=== PATIENT | female | born 1955 | race Caucasian/White ===

== ENCOUNTER → 2017-04-01 | Outpatient (CLI) | payer BC ==
[2017-04-01 12:42] LABS: Basophils # (A) 0.2 k/uL (0-0.2); Basophils % (A) 1 %; Eosinophils # (A) 0.1 k/uL (0-0.7); Eosinophils % (A) 1 %; HCT 43.4 % (34.0-46.0); HGB 13.7 gm/dL (11.4-16.0); Lymphocytes # (A) 4.6 k/uL (1.0-4.8); Lymphocytes % (A) 31 %; MCH 28.9 pg (25.0-35.0); MCHC 31.6 g/dL (31.0-37.0); MCV 91.6 fL (80.0-100.0); Mean Platelet Volume 6.7; Monocytes # (A) 1.1 k/uL (0-1.0); Monocytes % (A) 7 %; Neutrophils % (A) 59 %; Platelet Count 257 k/uL (150-450); RBC 4.73 m/uL (3.80-5.40); RDW 15.3 % (11.5-15.5); WBC 15.1 k/uL (3.8-10.6)
[2017-04-01 13:02] LABS: ALT 58 U/L (9-52); AST 39 U/L (14-36); Alkaline Phosphatase 75 U/L (38-126); Anion Gap 7 mmol/L; Blood Urea Nitrogen 7 mg/dL (7-17); Calcium 9.1 mg/dL (8.4-10.2); Carbon Dioxide 31 mmol/L (22-30); Chloride 98 mmol/L (98-107); Creatine Kinase 56 U/L (30-135); Glucose 87 mg/dL (74-99); Potassium 4.2 mmol/L (3.5-5.1); Sodium 136 mmol/L (137-145); Total Bilirubin 0.6 mg/dL (0.2-1.3); Total Protein 6.6 g/dL (6.3-8.2)
[2017-04-01 13:17] LABS: T4, Free (Free Thyroxine) 0.75 ng/dL (0.78-2.19)
== END | disposition home or self-care (01) ==
LOC: LABWHC1 11:52
PROVIDERS: ATTEND Internal Medicine Critical Care Medicine
DX: K21.9 Gastro-esophageal reflux disease without esophagitis (principal); R53.1 Weakness; R06.00 Dyspnea, unspecified
CPT/HCPCS: 36415; 80053; 82550; 84439; 84443; 85025

== ENCOUNTER 2017-07-26 06:12 | Day surgery (SDC) | payer BC ==
[2017-07-22 13:46] VITALS: BMI 29.2
[2017-07-26] MEDS ORDERED: MIDAZOLAM 2 MG/2 ML VIAL ONE (07:15)
[2017-07-26] MEDS ORDERED: fentaNYL (PF) 50 MCG/ML 2 ML AMP ONE (07:15)
[2017-07-26] MEDS ORDERED: IV FLUID CONTINUATION 1,000 ML IV ONE (07:20)
[2017-07-26] MEDS: BENZOCAINE SPRAY 1 CAN MUCOUS MEM ONE ×2 (07:32→07:43)
[2017-07-26] MEDS ORDERED: fentaNYL (PF) 50 MCG/ML 2 ML AMP IV ONE (07:43)
[2017-07-26] MEDS ORDERED: MIDAZOLAM 2 MG/2 ML VIAL IV ONE ×2 (07:43→07:45)
[2017-07-26] MEDS ORDERED: oxyCODONE-APAP 10-325MG 1 EACH TAB PO PRN (08:04)
[2017-07-26] MEDS ORDERED: SODIUM CHLORIDE 0.9% 1,000 ML IV SCH (08:15)
[2017-07-26 08:44] VITALS: BP 156/72; PULSE 88; RESP 22
--- NOTE | 2017-07-26 08:46 | ECHOT ---
TRANSESOPHAGEAL ECHOCARDIOGRAM INDICATION: Evaluation of mitral valve. PROCEDURE: After explaining the procedure to the patient, its risks and complication, blood pressure, heart rate, O2 saturation was monitored. The throat was sprayed with Cetacaine. She received 3 mg intravenous Versed, 50 mcg intravenous fentanyl. The probe introduced into the esophagus without difficulty. Images were obtained Following that, the probe was removed. There was no immediate complication. FINDINGS: Left atrial size is mildly dilated measuring 4.2 cm. Left atrial appendage is normal. Left ventricular size and systolic function normal. The aortic valve, mitral valve, tricuspid and pulmonic valve are normal. Descending thoracic aorta revealed mild atherosclerotic changes. There was no pericardial effusion. Contrast bubble study revealed no shunting across the interatrial septum. Pulse wave and color Doppler were obtained, revealed moderate to severe mitral with mild to moderate tricuspid regurgitation. There was no shunting by color Doppler study. CONCLUSION: 1. Mildly dilated left atrium with normal appearance of left atrial appendage. 2. Normal left ventricular size and systolic function. 3. Normal appearance of the mitral valve with moderate to severe mitral regurgitation, central. 4. Mild to moderate tricuspid regurgitation with no evidence of pulmonary hypertension. 5. Mild atherosclerotic changes of the descending thoracic aorta. 6. No shunting across the interatrial septum. MMODL / IJN: [id number] /
[2017-07-26] MEDS ORDERED: NON-FORMULARY DRUG (Pregabalin [Lyrica] 150 MG) PO SCH (09:00)
[2017-07-26] MEDS ORDERED: predniSONE 10 MG TAB PO SCH (09:00)
[2017-07-26] MEDS ORDERED: DILTIAZEM HCL 90 MG PO SCH (09:00)
[2017-07-26] MEDS ORDERED: NON-FORMULARY DRUG (Fluticasone/Vilanterol [Breo Ellipta 200-25 Mcg Inh] 1 INHALATION) INHALATION SCH (09:00)
[2017-07-26] MEDS ORDERED: TIOTROPIUM BROMIDE INHALATION SCH (09:00)
[2017-07-26] MEDS ORDERED: DULoxetine HCL 30 MG CAPSULE.DR PO SCH (09:00)
[2017-07-26] MEDS ORDERED: LEVOTHYROXINE 50 MCG TAB PO SCH (09:00)
[2017-07-26] MEDS ORDERED: CLONAZEPAM 2 MG PO SCH (09:00)
[2017-07-26] MEDS ORDERED: RIVAROXABAN 20 MG TAB PO SCH (09:00)
[2017-07-26] MEDS ORDERED: CIPROFLOXACIN HCL 500 MG TAB PO SCH (09:00)
[2017-07-26] MEDS ORDERED: ALBUTEROL NEBULIZED 2.5 MG/3 ML INHALATION SCH (09:00)
[2017-07-26] MEDS ORDERED: MORPHINE SULFATE ER 60 MG TABLET PO SCH (09:00)
== END 2017-07-26 08:59 | disposition home or self-care (01) ==
LOC: CATHCVL 06:12
PROVIDERS: ATTEND Internal Medicine Interventional Cardiology
DX: I08.1 Rheumatic disorders of both mitral and tricuspid valves (principal); I70.0 Atherosclerosis of aorta; I10 Essential (primary) hypertension; E78.2 Mixed hyperlipidemia; Z86.73 Personal history of transient ischemic attack (TIA), and cerebral infarction without residual deficits; F17.210 Nicotine dependence, cigarettes, uncomplicated; J44.9 Chronic obstructive pulmonary disease, unspecified; Z86.711 Personal history of pulmonary embolism; Z79.01 Long term (current) use of anticoagulants; Z82.49 Family history of ischemic heart disease and other diseases of the circulatory system; G89.29 Other chronic pain; M54.9 Dorsalgia, unspecified; M19.90 Unspecified osteoarthritis, unspecified site; Z79.890 Hormone replacement therapy; Z79.891 Long term (current) use of opiate analgesic; Z79.51 Long term (current) use of inhaled steroids; Z79.52 Long term (current) use of systemic steroids; Z79.899 Other long term (current) drug therapy
CPT/HCPCS: 93312; 93320; 93325; J2250; J3010

== ENCOUNTER 2018-06-01 16:35 | Inpatient (IN) | payer BC ==
[2018-06-01] MEDS ORDERED: IPRATROPIUM-ALBUTEROL 3 ML NEB INHALATION STA ×3 (16:55→20:51)
[2018-06-01] MEDS ORDERED: SODIUM CHLORIDE 0.9% 1,000 ML IV STA (16:55)
[2018-06-01] MEDS ORDERED: methylPREDNISolone SOD SUCCI 125 MG/2 ML VIAL IV STA (16:55)
--- NOTE | 2018-06-01 16:59 | ED ---
SOB HPI - General Chief Complaint: Shortness of Breath Stated Complaint: SOB Time Seen by Provider: 06/01/18 16:45 Source: patient, family, RN/MD, RN notes reviewed Mode of arrival: wheelchair Limitations: no limitations - History of Present Illness Initial Comments: This is a 63-year-old female history of COPD who was sent over by Dr. Morfin from the office complaint one month of shortness of breath cough with intermittent episodes of green phlegm episode of chills and fever. she states she's getting worse with exertional dyspnea especially over last several days. she did have an x-ray done in the office which showed no indication of pneumonia. she is here with the above complaints she was noted to have a pulse oximetry of about 81 that should improve only to 87 with treatment. she does have a known fev1 of only 35. she has any chest pain she does have some peripheral edema which she states is not bad for her. no other modifying facto rs at this time MD Complaint: shortness of breath, cough - Related Data Home Medications Medication Instructions Recorded Confirmed Morphine Sulfate ER [Ms Contin] 60 mg PO TID 06/06/14 06/01/18 Simvastatin [Zocor] 20 mg PO DAILY 06/06/14 06/01/18 DULoxetine HCL [Cymbalta] 60 mg PO DAILY 07/22/17 06/01/18 Fluticasone/Vilanterol [Breo 1 puff INHALATION RT-DAILY 07/22/17 06/01/18 Ellipta 200-25 Mcg INH] Levothyroxine Sodium [Synthroid] 50 mcg PO DAILY 07/22/17 06/01/18 Pregabalin [Lyrica] 150 mg PO BID 07/22/17 06/01/18 Rivaroxaban [Xarelto] 20 mg PO DAILY 07/22/17 06/01/18 oxyCODONE-APAP 10-325MG [Percocet 1 tab PO BID PRN 07/22/17 06/01/18 10-325 mg] predniSONE 10 mg PO DAILY 07/22/17 06/01/18 Albuterol Inhaler [Ventolin Hfa 2 puff INHALATION RT-Q6H PRN 06/01/18 06/01/18 Inhaler] Diltiazem HCl [Diltiazem 24Hr ER] 180 mg PO DAILY 06/01/18 06/01/18 Furosemide [Lasix] 40 mg PO DAILY 06/01/18 06/01/18 Ipratropium-Albuterol Nebulize 3 ml INHALATION RT-QID PRN 06/01/18 06/01/18 [Duoneb 0.5 mg-3 mg/3 ml Soln] Losartan [Cozaar] 25 mg PO DAILY 06/01/18 06/01/18 Tiotropium 18 Mcg/Puff [Spiriva] 1 cap INHALATION RT-DAILY 06/01/18 06/01/18 clonazePAM [KlonoPIN] 1 mg PO HS 06/01/18 06/01/18 clonazePAM [KlonoPIN] 2 mg PO QAM 06/01/18 06/01/18 Allergies Allergy/AdvReac Type Severity Reaction Status Date / Time amoxicillin trihydrate Allergy Rash/Hives Verified 06/01/18 17:21 [From Augmentin] cefaclor [From Ceclor] Allergy Rash/Hives Verified 06/01/18 17:21 Iodinated Contrast- Oral and Allergy Throat Verified 06/01/18 17:21 IV Dye Swelling [Iodinated Contrast Media - IV Dye] Penicillins Allergy Rash/Hives Verified 06/01/18 17:21 potassium clavulanate Allergy Rash/Hives Verified 06/01/18 17:21 [From Augmentin] Review of Systems ROS Statement: Those systems with pertinent positive or pertinent negative responses have been documented in the HPI. ROS Other: All systems not noted in ROS Statement are negative. Past Medical History Past Medical History: COPD, CVA/TIA, Hyperlipidemia, Hypertension, Memory Impairment, Pulmonary Embolus (PE), Thyroid Disorder Additional Past Medical History / Comment(s): CVA WITH LEFT SIDED EYE DROOP, NUMBNESS ALAN FINGERS, LEFT LEG SWELLING, DDD, SPINAL STENOSIS, leaky valve History of Any Multi-Drug Resistant Organisms: None Reported Past Surgical History: Back Surgery Additional Past Surgical History / Comment(s): d&c's, ALAN CATARACT SX Past Anesthesia/Blood Transfusion Reactions: No Reported Reaction Additional Past Anesthesia/Blood Transfusion Reaction / Comment(s): "anesthesia took more than usual, I didn't go under" Past Psychological History: Anxiety Smoking Status: Current every day smoker Past Alcohol Use History: None Reported Past Drug Use History: None Reported - Past Family History Sister(s) Family Medical History: Cancer Additional Family Medical History / Comment(s): breast General Exam - General Exam Comments Initial Comments: This is a well-developed well-nourished awake alert oriented 3 female who is in obvious respiratory distress with some audible wheezing Limitations: no limitations General appearance: alert, anxious, in distress Head exam: Present: atraumatic, normocephalic, normal inspection Eye exam: Present: normal appearance, PERRL, EOMI. Absent: scleral icterus, conjunctival injection, periorbital swelling ENT exam: Present: mucous membranes dry Neck exam: Present: normal inspection. Absent: tenderness, meningismus, lymphadenopathy Respiratory exam: Present: wheezes, accessory muscle use, decreased breath sounds. Absent: respiratory distress, rales, rhonchi, stridor, chest wall tenderness Cardiovascular Exam: Present: regular rate, normal rhythm, normal heart sounds. Absent: systolic murmur, diastolic murmur, rubs, gallop, clicks GI/Abdominal exam: Present: soft, normal bowel sounds. Absent: distended, tenderness, guarding, rebound, rigid Extremities exam: Present: normal inspection, full ROM, normal capillary refill, pedal edema. Absent: tenderness, joint swelling, calf tenderness Back exam: Present: normal inspection Neurological exam: Present: alert, oriented X3, CN II-XII intact Psychiatric exam: Present: normal affect, anxious Skin exam: Present: warm, dry, intact, normal color. Absent: rash Course Vital Signs 06/01/18 06/01/18 06/01/18 16:38 17:03 17:12 Temperature 97.8 F Pulse Rate 83 100 100 Respiratory 22 Rate Blood Pressure 116/68 O2 Sat by Pulse 95 Oximetry 06/01/18 06/01/18 06/01/18 18:33 18:50 18:57 Temperature Pulse Rate 101 H 93 92 Respiratory 18 Rate Blood Pressure 137/65 O2 Sat by Pulse 93 L Oximetry - Reevaluation(s) Reevaluation #1: 06/01/18 17:18 awake overnight monitor was ordered and the patient to the patient complain of dyspnea. This is rule out cardiac dysrhythmia. Monitor showed a rate of 104 with sinus tachycardia at time of my review the CT wave changes no PACs or PVCs noted Reevaluation #2: 06/01/18 18:30 Reevaluation patient after the initial therapy reveals minimal improvement. Her pulse ox has improved however to the mid 90s. Reevaluation #3: 06/01/18 18:31 I did discuss the findings with the patient and with Dr. Stern. Patient was seen by Dr. Stern in the emergency department. Patient be admitted with consultation by Dr. Simpson. Medical Decision Making - Medical Decision Making I did discuss [employer] the patient and her . Also with Dr. Bowden who did come down to see the patient. Patient will be admitted with consultation to Dr. Simpson - Lab Data Result diagrams: 06/01/18 17:05 06/01/18 17:05 Lab Results 06/01/18 06/01/18 06/01/18 Range/Units 17:05 17:05 17:05 WBC 16.7 H (3.8-10.6) k/uL RBC 4.86 (3.80-5.40) m/uL Hgb 14.1 (11.4-16.0) gm/dL Hct 43.9 (34.0-46.0) % MCV 90.2 (80.0-100.0) fL MCH 29.1 (25.0-35.0) pg MCHC 32.2 (31.0-37.0) g/dL RDW 16.4 H (11.5-15.5) % Plt Count 248 (150-450) k/uL Neutrophils % 90 % Lymphocytes % 3 % Monocytes % 4 % Eosinophils % 1 % Basophils % 0 % Neutrophils # 15.1 H (1.3-7.7) k/uL Lymphocytes # 0.5 L (1.0-4.8) k/uL Monocytes # 0.7 (0-1.0) k/uL Eosinophils # 0.2 (0-0.7) k/uL Basophils # 0.1 (0-0.2) k/uL Anisocytosis Slight PT (9.0-12.0) sec INR (<1.2) APTT (22.0-30.0) sec Sodium 133 L (137-145) mmol/L Potassium 3.9 (3.5-5.1) mmol/L Chloride 92 L (98-107) mmol/L Carbon Dioxide 35 H (22-30) mmol/L Anion Gap 6 mmol/L BUN 14 (7-17) mg/dL Creatinine 0.68 (0.52-1.04) mg/dL Est GFR (CKD-EPI)AfAm >90 (>60 ml/min/1.73 sqM) Est GFR (CKD-EPI)NonAf >90 (>60 ml/min/1.73 sqM) Glucose 195 H (74-99) mg/dL Calcium 9.1 (8.4-10.2) mg/dL Magnesium 2.2 (1.6-2.3) mg/dL Total Bilirubin 0.7 (0.2-1.3) mg/dL AST 27 (14-36) U/L ALT 40 (9-52) U/L Alkaline Phosphatase 90 (38-126) U/L Creatine Kinase 58 (30-135) U/L Troponin I (0.000-0.034) ng/mL NT-Pro-B Natriuret Pep 287 pg/mL Total Protein 6.3 (6.3-8.2) g/dL Albumin 3.9 (3.5-5.0) g/dL 06/01/18 06/01/18 Range/Units 17:05 17:05 WBC (3.8-10.6) k/uL RBC (3.80-5.40) m/uL Hgb (11.4-16.0) gm/dL Hct (34.0-46.0) % MCV (80.0-100.0) fL MCH (25.0-35.0) pg MCHC (31.0-37.0) g/dL RDW (11.5-15.5) % Plt Count (150-450) k/uL Neutrophils % % Lymphocytes % % Monocytes % % Eosinophils % % Basophils % % Neutrophils # (1.3-7.7) k/uL Lymphocytes # (1.0-4.8) k/uL Monocytes # (0-1.0) k/uL Eosinophils # (0-0.7) k/uL Basophils # (0-0.2) k/uL Anisocytosis PT 11.3 (9.0-12.0) sec INR 1.1 (<1.2) APTT 20.9 L (22.0-30.0) sec Sodium (137-145) mmol/L Potassium (3.5-5.1) mmol/L Chloride (98-107) mmol/L Carbon Dioxide (22-30) mmol/L Anion Gap mmol/L BUN (7-17) mg/dL Creatinine (0.52-1.04) mg/dL Est GFR (CKD-EPI)AfAm (>60 ml/min/1.73 sqM) Est GFR (CKD-EPI)NonAf (>60 ml/min/1.73 sqM) Glucose (74-99) mg/dL Calcium (8.4-10.2) mg/dL Magnesium (1.6-2.3) mg/dL Total Bilirubin (0.2-1.3) mg/dL AST (14-36) U/L ALT (9-52) U/L Alkaline Phosphatase (38-126) U/L Creatine Kinase (30-135) U/L Troponin I <0.012 (0.000-0.034) ng/mL NT-Pro-B Natriuret Pep pg/mL Total Protein (6.3-8.2) g/dL Albumin (3.5-5.0) g/dL - EKG Data -: EKG Interpreted by Ga EKG shows normal: sinus rhythm (Sinus tachycardia rate of 107 appear of 01 60 QRS duration 66 QT since QTC 342/[address] configuration artifact is present) - Radiology Data Radiology results: image reviewed (Acute findings are noted) Critical Care Time Critical Care Time: Yes Critical Care Time: 31 minutes of critical care time which includes initial presentation with histo ry physical labs x-rays reevaluation patient responsive therapy. Discussion with paramedics upon arrival regarding the treatment prior to arrival. Review of old charting that was available admission orders and documentation of the above Disposition Clinical Impression: Acute exacerbation of chronic obstructive airways disease, Adult respiratory distress syndrome Disposition: ADMITTED IP TO THIS HOSP Condition: Serious Referrals: Trevor Hamilton MD [Primary Care Provider] - 1-2 days
[2018-06-01 17:21] LABS: Anisocytosis Slight; Basophils # (A) 0.1 k/uL (0-0.2); Basophils % (A) 0 %; Eosinophils # (A) 0.2 k/uL (0-0.7); Eosinophils % (A) 1 %; HCT 43.9 % (34.0-46.0); HGB 14.1 gm/dL (11.4-16.0); Lymphocytes # (A) 0.5 k/uL (1.0-4.8); Lymphocytes % (A) 3 %; MCH 29.1 pg (25.0-35.0); MCHC 32.2 g/dL (31.0-37.0); MCV 90.2 fL (80.0-100.0); Mean Platelet Volume 6.3; Monocytes # (A) 0.7 k/uL (0-1.0); Monocytes % (A) 4 %; Neutrophils # (A) 15.1 k/uL (1.3-7.7); Neutrophils % (A) 90 %; Platelet Count 248 k/uL (150-450); RBC 4.86 m/uL (3.80-5.40); RDW 16.4 % (11.5-15.5); WBC 16.7 k/uL (3.8-10.6)
[2018-06-01 17:39] LABS: ALT 40 U/L (9-52); AST 27 U/L (14-36); Albumin 3.9 g/dL (3.5-5.0); Alkaline Phosphatase 90 U/L (38-126); Anion Gap 6 mmol/L; Blood Urea Nitrogen 14 mg/dL (7-17); Calcium 9.1 mg/dL (8.4-10.2); Carbon Dioxide 35 mmol/L (22-30); Chloride 92 mmol/L (98-107); Creatine Kinase 58 U/L (30-135); Glucose 195 mg/dL (74-99); Magnesium 2.2 mg/dL (1.6-2.3); Potassium 3.9 mmol/L (3.5-5.1); Sodium 133 mmol/L (137-145); Total Bilirubin 0.7 mg/dL (0.2-1.3); Total Protein 6.3 g/dL (6.3-8.2)
[2018-06-01 17:41] LABS: INR 1.1 (<1.2); Prothrombin Time 11.3 sec (9.0-12.0)
[2018-06-01 17:42] LABS: Partial Thromboplastin Time 20.9 sec (22.0-30.0)
--- NOTE | 2018-06-01 19:08 | P.HPIM ---
History of Present Illness H&P Date: 06/01/18 Chief Complaint: COPD exacerbation 63 year old F with PMH of COPD, hypertension, hyperlipidemia, PE, hypothyroidism, previous h/o CVA, leaky valve as per patient presents to the ED for shortness of breath and cough. Patient report that the symptoms have been ongoing for the past 2 weeks. Patient also reports a cough productive of green sputum during that time as well. Patient states her symptoms have been progressively getting worse despite DuoNeb treatments, prompting her to come to the ED. Patient states that her exercise tolerance is usually greater than one block but now finds it hard to move from room to room. She reports a frontal headache and nasal discharge, green in color. Patient states that her sputum smells bad. She reports intermittent lower extremity edema that resolves with lower shi elevation. She denies any nausea, vomiting, fever, chest pain, palpitations, changes in urination or bowel habits. No changes in appetite or weight. Patient reports smoking 25 cigarettes daily. Has a long history of smoking 1 pack per day for many years. She denies any alcohol or illicit drug use. Patient reports going to urgent care center 5 days ago, received by mouth Levaquin which did not help her symptoms. In the ED, CBC showed a leukocytosis of 16.7. CMP showed a sodium of 133, chloride of 92, bicarbonate of 35. Initial troponin was less than 0.012, EKG shows sinus tachycardia. Review of Systems All systems: negative Past Medical History Past Medical History: COPD, CVA/TIA, Hyperlipidemia, Hypertension, Memory Impairment, Pulmonary Embolus (PE), Thyroid Disorder Additional Past Medical History / Comment(s): CVA WITH LEFT SIDED EYE DROOP, NUMBNESS ALAN FINGERS, LEFT LEG SWELLING, DDD, SPINAL STENOSIS, leaky valve History of Any Multi-Drug Resistant Organisms: None Reported Past Surgical History: Back Surgery Additional Past Surgical History / Comment(s): d&c's, ALAN CATARACT SX Past Anesthesia/Blood Transfusion Reactions: No Reported Reaction Additional Past Anesthesia/Blood Transfusion Reaction / Comment(s): "anesthesia took more than usual, I didn't go under" Past Psychological History: Anxiety Smoking Status: Current every day smoker Past Alcohol Use History: None Reported Past Drug Use History: None Reported - Past Family History Sister(s) Family Medical History: Cancer Additional Family Medical History / Comment(s): breast Medications and Allergies Home Medications Medication Instructions Recorded Confirmed Type Morphine Sulfate ER [Ms Contin] 60 mg PO TID 06/06/14 06/01/18 History Simvastatin [Zocor] 20 mg PO DAILY 06/06/14 06/01/18 History DULoxetine HCL [Cymbalta] 60 mg PO DAILY 07/22/17 06/01/18 History Fluticasone/Vilanterol [Breo 1 puff INHALATION RT-DAILY 07/22/17 06/01/18 History Ellipta 200-25 Mcg INH] Levothyroxine Sodium [Synthroid] 50 mcg PO DAILY 07/22/17 06/01/18 History Pregabalin [Lyrica] 150 mg PO BID 07/22/17 06/01/18 History Rivaroxaban [Xarelto] 20 mg PO DAILY 07/22/17 06/01/18 History oxyCODONE-APAP 10-325MG [Percocet 1 tab PO BID PRN 07/22/17 06/01/18 History 10-325 mg] predniSONE 10 mg PO DAILY 07/22/17 06/01/18 History Albuterol Inhaler [Ventolin Hfa 2 puff INHALATION RT-Q6H PRN 06/01/18 06/01/18 History Inhaler] Diltiazem HCl [Diltiazem 24Hr ER] 180 mg PO DAILY 06/01/18 06/01/18 History Furosemide [Lasix] 40 mg PO DAILY 06/01/18 06/01/18 History Ipratropium-Albuterol Nebulize 3 ml INHALATION RT-QID PRN 06/01/18 06/01/18 History [Duoneb 0.5 mg-3 mg/3 ml Soln] Losartan [Cozaar] 25 mg PO DAILY 06/01/18 06/01/18 History Tiotropium 18 Mcg/Puff [Spiriva] 1 cap INHALATION RT-DAILY 06/01/18 06/01/18 History clonazePAM [KlonoPIN] 1 mg PO HS 06/01/18 06/01/18 History clonazePAM [KlonoPIN] 2 mg PO QAM 06/01/18 06/01/18 History Allergies Allergy/AdvReac Type Severity Reaction Status Date / Time amoxicillin trihydrate Allergy Rash/Hives Verified 06/01/18 17:21 [From Augmentin] cefaclor [From Ceclor] Allergy Rash/Hives Verified 06/01/18 17:21 Iodinated Contrast- Oral and Allergy Throat Verified 06/01/18 17:21 IV Dye Swelling [Iodinated Contrast Media - IV Dye] Penicillins Allergy Rash/Hives Verified 06/01/18 17:21 potassium clavulanate Allergy Rash/Hives Verified 06/01/18 17:21 [From Augmentin] Physical Exam Vitals: Vital Signs Temp Pulse Resp BP Pulse Ox 06/01/18 18:33 101 H 06/01/18 17:12 100 06/01/18 17:03 100 06/01/18 16:38 97.8 F 83 22 116/68 95 Intake and Output 06/01/18 06/01/18 06/01/18 06:59 14:59 22:59 Other: Weight 71.214 kg General: [non toxic], [dyspneic], [appears at stated age] Derm: [warm], [dry] Head: [atraumatic], [normocephalic], [symmetric] Eyes: [EOMI], [no lid lag], [anicteric sclera] Mouth: [no lip lesion], [mucus membranes moist] Cardiovascular: [S1S2 reg], [tachycardia], [positive posterior tibial pulse bilateral], Lungs: [Decreased breath sounds bilaterally with end expiratory wheezing], [no r honchi, no rales] , [no accessory muscle use] Abdominal: [soft], [ nontender to palpation], [no guarding], [no appreciable organomegaly] Ext: [no gross muscle atrophy], [no edema], [no contractures] Neuro: [no focal neuro deficits] Psych: [Alert], [oriented], [appropriate affect] Results CBC & Chem 7: 06/01/18 17:05 06/01/18 17:05 Labs: Abnormal Lab Results - Last 24 Hours (Table) 06/01/18 06/01/18 06/01/18 Range/Units 17:05 17:05 17:05 WBC 16.7 H (3.8-10.6) k/uL RDW 16.4 H (11.5-15.5) % Neutrophils # 15.1 H (1.3-7.7) k/uL Lymphocytes # 0.5 L (1.0-4.8) k/uL APTT 20.9 L (22.0-30.0) sec Sodium 133 L (137-145) mmol/L Chloride 92 L (98-107) mmol/L Carbon Dioxide 35 H (22-30) mmol/L Glucose 195 H (74-99) mg/dL Thrombosis Risk Factor Assmnt - Choose All That Apply Any of the Below Risk Factors Present?: Yes Each Factor Represents 1 point: Age 41-60 years Other Risk Factors: No Each Risk Factor Represents 3 Points: History of DVT/PE Thrombosis Risk Factor Assessment Total Risk Factor Score: 4 Thrombosis Risk Factor Assessment Level: Moderate Risk Assessment and Plan Assessment: Assessment and Plan 1. COPD exacerbation 2. Pulmonary embolus 3. Hypertension 4. Hypothyroidism 5. History of CVA 1. Likely secondary to acute bronchitis. Start DuoNeb 4 times a day scheduled and as needed for shortness of breath and wheezing. Start Solu-Medrol 60 mg IV every 6 hours. Start Symbicort inhaler. O2 per nasal cannula to maintain an O2 saturation greater than 92%. Will follow pulmonology recommendations. Chest x- ray done at Dr[facility], no pneumonia seen. 2. Continue Xarelto. O2 per nasal cannula to maintain an O2 saturation greater than 92%. Telemetry monitoring. Will follow pulmonology recommendations. 3. BP 137/65. Continue diltiazem. Continue Lasix. Continue losartan. Monitor vitals, adjust medications as necessary. 4. Continue Synthroid. 5. Stable. Continue Lipitor, Xarelto. Patient admitted for COPD exacerbation. Pulmonology consult. Pending clinical improvement.
[2018-06-01] MEDS: IPRATROPIUM-ALBUTEROL 3 ML NEB INHALATION SCH (21:03)
[2018-06-02] MEDS: clonazePAM 1 MG TAB PO SCH ×3 (00:06→21:17)
[2018-06-02] MEDS: methylPREDNISolone SOD SUCCI 125 MG/2 ML VIAL IV SCH ×5 (00:06→23:33)
[2018-06-02] MEDS: guaiFENesin 600 MG TABLET.ER PO SCH ×3 (00:06→21:18)
[2018-06-02] MEDS: MORPHINE SULFATE ER 60 MG TABLET PO SCH ×4 (00:07→23:33)
[2018-06-02] MEDS: PREGABALIN 75 MG CAP PO SCH ×3 (00:08→21:17)
[2018-06-02] MEDS: LEVOTHYROXINE 50 MCG TAB PO SCH (06:19)
[2018-06-02] MEDS: IPRATROPIUM-ALBUTEROL 3 ML NEB INHALATION SCH ×4 (07:33→19:42)
[2018-06-02] MEDS: SYMBICORT 160-4.5 MCG INHALER INHALATION SCH ×2 (07:33→19:42)
[2018-06-02 07:45] LABS: Anisocytosis Slight; Basophils % (A) 0 %; Eosinophils % (A) 0 %; HCT 40.1 % (34.0-46.0); HGB 12.6 gm/dL (11.4-16.0); Lymphocytes # (A) 0.4 k/uL (1.0-4.8); Lymphocytes % (A) 4 %; MCH 28.4 pg (25.0-35.0); MCHC 31.3 g/dL (31.0-37.0); MCV 90.9 fL (80.0-100.0); Monocytes # (A) 0.3 k/uL (0-1.0); Monocytes % (A) 3 %; Neutrophils # (A) 9.5 k/uL (1.3-7.7); Neutrophils % (A) 92 %; Platelet Count 214 k/uL (150-450); RBC 4.41 m/uL (3.80-5.40); RDW 16.2 % (11.5-15.5); WBC 10.3 k/uL (3.8-10.6)
[2018-06-02 07:55] LABS: Anion Gap 3 mmol/L; Blood Urea Nitrogen 13 mg/dL (7-17); Calcium 8.9 mg/dL (8.4-10.2); Carbon Dioxide 37 mmol/L (22-30); Chloride 98 mmol/L (98-107); Glucose 197 mg/dL (74-99); Sodium 138 mmol/L (137-145)
[2018-06-02] MEDS ORDERED: IPRATROPIUM 0.5 MG/2.5 ML NEBU INHALATION SCH (08:00)
[2018-06-02] MEDS: LOSARTAN 25 MG TAB PO SCH (09:07)
[2018-06-02] MEDS: DULoxetine HCL 60 MG CAPSULE.DR PO SCH (09:07)
[2018-06-02] MEDS: ATORVASTATIN 10 MG TAB PO SCH (09:07)
[2018-06-02] MEDS: FUROSEMIDE 40 MG TAB PO SCH (09:07)
[2018-06-02] MEDS: AMOXIC-POT CLAV 875-125MG 1 EACH TAB PO SCH ×2 (10:49→21:18)
[2018-06-02] MEDS: NICOTINE 14MG/24HR PATCH TRANSDERM SCH (10:50)
--- NOTE | 2018-06-02 11:09 | P.PN ---
Subjective Progress Note Date: 06/02/18 Principal diagnosis: COPD exacerbation Patient seen and examined. No acute events overnight. Patient reports no changes in her breathing. She continues to complain of cough productive of green sputum and sinus type frontal headache. She is saturating 90s on 2 L nasal cannula. Objective - Vital Signs Vital signs: Vital Signs Temp 98.8 F 06/02/18 07:00 Pulse 97 06/02/18 08:40 Resp 16 06/02/18 08:40 BP 149/79 06/02/18 07:00 Pulse Ox 98 06/02/18 07:00 Intake & Output 06/01/18 06/02/18 06/02/18 18:59 06:59 18:59 Intake Total 900 Balance 900 Weight 71.214 kg Intake: Intake, IV Titration 550 Amount Sodium Chloride 0.9% 1, 550 000 ml @ 100 mls/hr IV . Q10H STA Rx#:[id number] Oral 350 Other: Voiding Method Toilet Bedside Commode # Voids 2 - Exam General: [non toxic], [dyspneic], [appears at stated age] Derm: [warm], [dry] Head: [atraumatic], [normocephalic], [symmetric] Eyes: [EOMI], [no lid lag], [anicteric sclera] Mouth: [no lip lesion], [mucus membranes moist] Cardiovascular: [S1S2 reg], [tachycardia], [positive posterior tibial pulse bilateral], Lungs: [Decreased breath sounds bilaterally with end expiratory wheezing], [no rhonchi, no rales] , [no accessory muscle use] Abdominal: [soft], [ nontender to palpation], [no guarding], [no appreciable or ganomegaly] Ext: [no gross muscle atrophy], [no edema], [no contractures] Neuro: [no focal neuro deficits] Psych: [Alert], [oriented], [appropriate affect] - Labs CBC & Chem 7: 06/02/18 06:48 06/02/18 06:48 Labs: Abnormal Lab Results - Last 24 Hours (Table) 06/01/18 06/01/18 06/01/18 Range/Units 17:05 17:05 17:05 WBC 16.7 H (3.8-10.6) k/uL RDW 16.4 H (11.5-15.5) % Neutrophils # 15.1 H (1.3-7.7) k/uL Lymphocytes # 0.5 L (1.0-4.8) k/uL APTT 20.9 L (22.0-30.0) sec Sodium 133 L (137-145) mmol/L Chloride 92 L (98-107) mmol/L Carbon Dioxide 35 H (22-30) mmol/L Creatinine (0.52-1.04) mg/dL Glucose 195 H (74-99) mg/dL 06/02/18 06/02/18 Range/Units 06:48 06:48 WBC (3.8-10.6) k/uL RDW 16.2 H (11.5-15.5) % Neutrophils # 9.5 H (1.3-7.7) k/uL Lymphocytes # 0.4 L (1.0-4.8) k/uL APTT (22.0-30.0) sec Sodium (137-145) mmol/L Chloride (98-107) mmol/L Carbon Dioxide 37 H (22-30) mmol/L Creatinine 0.48 L (0.52-1.04) mg/dL Glucose 197 H (74-99) mg/dL Assessment and Plan Assessment: Assessment and Plan 1. COPD exacerbation 2. Sinusitis 3. Pulmonary embolus 4. Severe mitral regurgitation 5. Hypertension 6. Hypothyroidism 7. History of CVA 1. Likely secondary to acute bronchitis. Start DuoNeb 4 times a day scheduled and as needed for shortness of breath and wheezing. Start Solu-Medrol 60 mg IV every 6 hours. Start Symbicort inhaler. O2 per nasal cannula to maintain an O2 saturation greater than 92%. Will follow pulmonology recommendations. Chest x- ray done at Dr[facility], no pneumonia seen. 2. ALLERGY to penicillin in the past only included rash. Will try trial of Augmentin for sinusitis. Continue Mucinex. 3. Continue Xarelto. O2 per nasal cannula to maintain an O2 saturation greater than 92%. Telemetry monitoring. Will follow pulmonology recommendations. 4. Seen on previous LEVI. Might be contributing to her respiratory distress. Will follow cardiology consultation. Continue Lasix and [place] inhibitor. 5. BP 149/79. Continue diltiazem. Continue Lasix. Continue losartan. Monitor vitals, adjust medications as necessary. 6. Continue Synthroid. 7. Stable. Continue Lipitor, Xarelto. Patient admitted for COPD exacerbation. Pulmonology consult. Cardiology consulted for severe mitral regurgitation. Pending clinical improvement.
[2018-06-02] MEDS: RIVAROXABAN 20 MG TAB PO SCH (12:16)
[2018-06-02] MEDS: DILTIAZEM CD 180 MG CAP.ER.24H PO SCH (12:16)
[2018-06-02 16:53] LABS: Glucose,Whole Blood 154 mg/dL (75-99)
--- NOTE | 2018-06-02 18:09 | P.CNPUL ---
History of Present Illness Consult date: 06/02/18 Requesting physician: Tita Delacruz Reason for consult: dyspnea, COPD Chief complaint: Shortness of breath, cough, congestion History of present illness: This is a very pleasant 63-year-old female patient who follows with Dr. Hamilton as her primary care physician. She has a history of spinal stenosis of the lumbar region, mitral valve regurgitation, osteoarthritis, hyperlipidemia, pulmonary embolism anticoagulated with Xarelto. She also has a history of chronic tobacco dependence, severe chronic obstructive pulmonary disease, chronic hypoxemic respiratory failure, multiple nodules lung. She follows with Dr. Simpson in our office. He was seen by Dr. Lore Blandon in his absence yesterday for an acute exacerbation of her COPD. She was quite dyspneic and was referred to the emergency room for treatment. She is seen today in consultation. Her chest x- ray shows no evidence of acute pneumonia. She is seen today in consultation on the regular medical floor. She is currently awake and alert. She is quite dyspneic on minimal exertion. Dyspnea with conversation. He is maintaining O2 saturations in the low 90s on 2 L/m per nasal cannula. She is currently afebrile. Hemodynamically stable. White count 10.3. Hemoglobin 12.6. Creatinine 0.48. She's been initiated on DuoNeb inhalations, Symbicort, IV Solu-Medrol. Empiric antibiotics in the form of Augmentin. Unfortunately she does continue to smoke. Habitrol patch is in place. Review of Systems REVIEW OF SYSTEMS: CONSTITUTIONAL: Denies any recent significant weight loss or weight gain. EYES: Denies change in vision. EARS, NOSE, MOUTH, THROAT: Denies headaches, denies sore throat. CARDIOVASCULAR: Denies chest pain, palpitations or syncopal episodes. RESPIRATORY: Positive shortness of breath, cough, congestion no hemoptysis. GASTROINTESTINAL: Denies change in appetite, denies abdominal pain GENITOURINARY: Denies hematuria, denies infections. MUSKULOSKELETAL: Denies pain, denies swelling. INTEGUMENTARY: Denies rash, denies eczema. NEUROLOGICAL: Denies recent memory loss, no recent seizure activity. PSYCHIATRIC: Denies anxiety, denies depression. HEMATOLOGIC/LYMPHATIC: Denies anemia, denies enlarged lymph nodes. Past Medical History Past Medical History: COPD, CVA/TIA, Hyperlipidemia, Hypertension, Memory Impairment, Pulmonary Embolus (PE), Thyroid Disorder Additional Past Medical History / Comment(s): CVA WITH LEFT SIDED EYE DROOP, NUMBNESS ALAN FINGERS, LEFT LEG SWELLING, DDD, SPINAL STENOSIS, leaky valve History of Any Multi-Drug Resistant Organisms: None Reported Past Surgical History: Back Surgery Additional Past Surgical History / Comment(s): d&c's, ALAN CATARACT SX Past Anesthesia/Blood Transfusion Reactions: No Reported Reaction Additional Past Anesthesia/Blood Transfusion Reaction / Comment(s): "anesthesia took more than usual, I didn't go under" Past Psychological History: Anxiety Smoking Status: Current every day smoker Past Alcohol Use History: None Reported Additional Past Alcohol Use History / Comment(s): smokes 10-15 cigarettes a day, from age 17 Past Drug Use History: None Reported - Past Family History Sister(s) Family Medical History: Cancer Additional Family Medical History / Comment(s): breast Medications and Allergies Home Medications Medication Instructions Recorded Confirmed Type Morphine Sulfate ER [Ms Contin] 60 mg PO TID 06/06/14 06/01/18 History Simvastatin [Zocor] 20 mg PO DAILY 06/06/14 06/01/18 History DULoxetine HCL [Cymbalta] 60 mg PO DAILY 07/22/17 06/01/18 History Fluticasone/Vilanterol [Breo 1 puff INHALATION RT-DAILY 07/22/17 06/01/18 History Ellipta 200-25 Mcg INH] Levothyroxine Sodium [Synthroid] 50 mcg PO DAILY 07/22/17 06/01/18 History Pregabalin [Lyrica] 150 mg PO BID 07/22/17 06/01/18 History Rivaroxaban [Xarelto] 20 mg PO DAILY 07/22/17 06/01/18 History oxyCODONE-APAP 10-325MG [Percocet 1 tab PO BID PRN 07/22/17 06/01/18 History 10-325 mg] predniSONE 10 mg PO DAILY 07/22/17 06/01/18 History Albuterol Inhaler [Ventolin Hfa 2 puff INHALATION RT-Q6H PRN 06/01/18 06/01/18 History Inhaler] Diltiazem HCl [Diltiazem 24Hr ER] 180 mg PO DAILY 06/01/18 06/01/18 History Furosemide [Lasix] 40 mg PO DAILY 06/01/18 06/01/18 History Ipratropium-Albuterol Nebulize 3 ml INHALATION RT-QID PRN 06/01/18 06/01/18 History [Duoneb 0.5 mg-3 mg/3 ml Soln] Losartan [Cozaar] 25 mg PO DAILY 06/01/18 06/01/18 History Tiotropium 18 Mcg/Puff [Spiriva] 1 cap INHALATION RT-DAILY 06/01/18 06/01/18 History clonazePAM [KlonoPIN] 1 mg PO HS 06/01/18 06/01/18 History clonazePAM [KlonoPIN] 2 mg PO QAM 06/01/18 06/01/18 History Allergies Allergy/AdvReac Type Severity Reaction Status Date / Time amoxicillin trihydrate Allergy Rash/Hives Verified 06/01/18 17:21 [From Augmentin] cefaclor [From Ceclor] Allergy Rash/Hives Verified 06/01/18 17:21 Iodinated Contrast- Oral and Allergy Throat Verified 06/01/18 17:21 IV Dye Swelling [Iodinated Contrast Media - IV Dye] Penicillins Allergy Rash/Hives Verified 06/01/18 17:21 potassium clavulanate Allergy Rash/Hives Verified 06/01/18 17:21 [From Augmentin] Physical Exam Vitals: Vital Signs Temp Pulse Pulse Resp BP BP Pulse Ox 06/02/18 17:08 100 06/02/18 16:53 100 06/02/18 16:00 97 16 06/02/18 08:40 97 16 06/02/18 07:44 98 06/02/18 07:33 96 06/02/18 07:00 98.8 F 97 16 149/79 98 06/01/18 23:04 95 18 06/01/18 22:08 98.3 F 95 17 127/65 95 06/01/18 21:30 124 H 16 142/78 06/01/18 21:13 104 H 06/01/18 21:03 104 H 06/01/18 21:00 98 12 137/76 94 L 06/01/18 20:30 98 12 134/71 92 L 06/01/18 20:00 90 12 128/66 95 06/01/18 19:30 86 12 124/68 94 L 06/01/18 19:00 90 12 137/65 95 06/01/18 18:57 92 06/01/18 18:50 93 18 137/65 93 L 06/01/18 18:33 101 H Intake and Output 06/02/18 06/02/18 06/02/18 06:59 14:59 22:59 Intake Total 900 600 Balance 900 600 Intake: Intake, IV Titration 550 600 Amount Sodium Chloride 0.9% 1, 550 600 000 ml @ 100 mls/hr IV . Q10H STA Rx#:[id number] Oral 350 Other: Voiding Method Toilet Bedside Commode # Voids 2 3 GENERAL EXAM: Alert, active, comfortable in no respiratory distress. Oxygen at 2 L/m per nasal cannula. HEAD: Normocephalic. EYES: Normal reaction of pupils, equal size. NOSE: Clear with pink turbinates. THROAT: No erythema or exudates. NECK: No masses, no JVD. CHEST: No chest wall deformity. LUNGS: Equal air entry with bilateral end expiratory wheeze, few scattered rhonchi. CVS: S1 and S2 normal with no audible murmur, regular rhythm. ABDOMEN: No hepatosplenomegaly, normal bowel sounds, no guarding or rigidity. SPINE: No scoliosis or deformity SKIN: No rashes CENTRAL NERVOUS SYSTEM: No focal deficits, tone is normal in all 4 extremities. EXTREMITIES: There is trace peripheral edema. No clubbing, no cyanosis. Peripheral pulses are intact. Results - Laboratory Findings CBC and BMP: 06/02/18 06:48 06/02/18 06:48 PT/INR, D-dimer PT 11.3 sec (9.0-12.0) 06/01/18 17:05 INR 1.1 (<1.2) 06/01/18 17:05 Abnormal lab findings: Abnormal Labs 06/01/18 06/01/18 06/01/18 17:05 17:05 17:05 WBC 16.7 H RDW 16.4 H Neutrophils # 15.1 H Lymphocytes # 0.5 L APTT 20.9 L Sodium 133 L Chloride 92 L Carbon Dioxide 35 H Creatinine Glucose 195 H POC Glucose (mg/dL) 06/02/18 06/02/18 06/02/18 06:48 06:48 16:49 WBC RDW 16.2 H Neutrophils # 9.5 H Lymphocytes # 0.4 L APTT Sodium Chloride Carbon Dioxide 37 H Creatinine 0.48 L Glucose 197 H POC Glucose (mg/dL) 154 H - Diagnostic Findings Chest x-ray: image reviewed (No acute pulmonary process) Assessment and Plan Assessment: Impression: #1 Acute exacerbation of chronic obstructive pulmonary disease. #2 Acute on chronic hypoxic respiratory failure secondary to above. #3 Chronic and ongoing tobacco dependence. #4 Hypertension. #5 Hyperlipidemia. #6 History of pulmonary embolism, anticoagulated with Xarelto. #7 Hypothyroidism. #8 CVA with left-sided eye droop. #9 anxiety. Plan: The patient was seen and evaluated by Dr. Sipmson. Chest x-ray and labs were reviewed. We'll continue with her current treatment for her COPD exacerbation including IV Solu-Medrol, DuoNeb inhalations, Symbicort inhalations. He is again educated regarding the importance of complete smoking cessation. Habitrol patches in place. Anticoagulant with Xarelto. We will continue to follow and make further recommendations based on her clinical status. I, the cosigning physician, performed a history & physical examination of the patient. Lungs sounds with bilateral end expiratory wheeze, few scattered rhonchi, diminished. Maintaining good O2 saturations in the 90s on 2 L/m per nasal cannula. I discussed the assessment and plan of care with my nurse practitioner, Cynthia Ken. I attest to the above note as dictated by her. Time with Patient: Greater than 30
--- NOTE | 2018-06-02 18:14 | ECHOF ---
Referral Reason:SOB MEASUREMENTS -------- HEIGHT: 157.5 cm WEIGHT: 71.2 kg BP: 127/65 IVSd: 1.4 cm (0.6 - 1.1) LVIDd: 4.0 cm (3.9 - 5.3) LVPWd: 1.5 cm (0.6 - 1.1) IVSs: 1.8 cm LVIDs: 2.7 cm LVPWs: 1.8 cm LAESV Index (A-L): 25.17 ml/m Ao Diam: 2.8 cm (2.0 - 3.7) AV Cusp: 2.0 cm (1.5 - 2.6) LA Diam: 3.1 cm (2.7 - 3.8) MV EXCURSION: 15.271 mm (> 18.000) MV EF SLOPE: 135 mm/s (70 - 150) EPSS: 0.7 cm MV E Parth: 1.14 m/s MV DecT: 220 ms MV A Parth: 1.33 m/s MV E/A Ratio: 0.86 RAP: 20.00 mmHg RVSP: 57.07 mmHg FINDINGS -------- Sinus rhythm. This was a technically good study. The left ventricular size is normal. There is moderate concentric left ventricular hypertrophy. O verall left ventricular systolic function is normal with, an EF between 55 - 60 %. The right ventricle is normal in size. Normal LA size by volume 22+/-6 ml/m2. The right atrial size is normal. The aortic valve is trileaflet and appears structurally normal. The mitral valve leaflets are mildly thickened. Severe mitral regurgitation is present. Mild tricuspid regurgitation present. There is moderate pulmonary hypertension. The right ventric ular systolic pressure, as measured by Doppler, is 57.07mmHg. Pulmonic valve appears structurally normal. The aortic root size is normal. The inferior vena cava is dilated with no significant inspiratory collapse which is consistent estima tessa right atrial pressure of >20 mmHg. The pericardium is normal. CONCLUSIONS -------- 1. Sinus rhythm. 2. This was a technically good study. 3. The left ventricular size is normal. 4. There is moderate concentric left ventricular hypertrophy. 5. Overall left ventricular systolic function is normal with, an EF between 55 - 60 %. 6. The right ventricle is normal in size. 7. Normal LA size by volume 22+/-6 ml/m2. 8. The right atrial size is normal. 9. The aortic valve is trileaflet and appears structurally normal. 10. The mitral valve leaflets are mildly thickened. 11. Severe mitral regurgitation is present. 12. Mild tricuspid regurgitation present. 13. There is moderate pulmonary hypertension. 14. The right ventricular systolic pressure, as measured by Doppler, is 57.07mmHg. 15. Pulmonic valve appears structurally normal. 16. The aortic root size is normal. 17. The inferior vena cava is dilated with no significant inspiratory collapse which is consistent es timated right atrial pressure of >20 mmHg. 18. The pericardium is normal. SMALL MACHINE BINDERY OPERATOR: Guadalupe Flores RDCS
[2018-06-02 19:36] LABS: Glucose,Whole Blood 267 mg/dL (75-99)
[2018-06-02] MEDS: INSULIN ASPART (NovoLOG) 100 UNIT/ML VIAL SQ SCH (20:41)
[2018-06-02] MEDS: IPRATROPIUM-ALBUTEROL 3 ML NEB INHALATION PRN (21:41)
[2018-06-03] MEDS: IPRATROPIUM-ALBUTEROL 3 ML NEB INHALATION PRN ×2 (00:29→04:28)
[2018-06-03] MEDS: methylPREDNISolone SOD SUCCI 125 MG/2 ML VIAL IV SCH ×3 (06:01→17:09)
[2018-06-03] MEDS: LEVOTHYROXINE 50 MCG TAB PO SCH (06:01)
[2018-06-03 07:05] LABS: Glucose,Whole Blood 191 mg/dL (75-99)
[2018-06-03] MEDS: SYMBICORT 160-4.5 MCG INHALER INHALATION SCH ×2 (07:33→19:32)
[2018-06-03] MEDS: IPRATROPIUM-ALBUTEROL 3 ML NEB INHALATION SCH ×4 (07:33→19:32)
[2018-06-03] MEDS: NICOTINE 14MG/24HR PATCH TRANSDERM SCH (08:04)
[2018-06-03] MEDS: INSULIN ASPART (NovoLOG) 100 UNIT/ML VIAL SQ SCH ×4 (08:04→21:43)
[2018-06-03] MEDS: AMOXIC-POT CLAV 875-125MG 1 EACH TAB PO SCH ×2 (08:05→22:22)
[2018-06-03] MEDS: FUROSEMIDE 40 MG TAB PO SCH (08:05)
[2018-06-03] MEDS: ATORVASTATIN 10 MG TAB PO SCH (08:05)
[2018-06-03] MEDS: DILTIAZEM CD 180 MG CAP.ER.24H PO SCH (08:05)
[2018-06-03] MEDS: clonazePAM 1 MG TAB PO SCH ×2 (08:05→21:43)
[2018-06-03] MEDS: MORPHINE SULFATE ER 60 MG TABLET PO SCH ×3 (08:05→21:43)
[2018-06-03] MEDS: DULoxetine HCL 60 MG CAPSULE.DR PO SCH (08:05)
[2018-06-03] MEDS: LOSARTAN 25 MG TAB PO SCH (08:05)
[2018-06-03] MEDS: PREGABALIN 75 MG CAP PO SCH ×2 (08:06→21:43)
[2018-06-03] MEDS: RIVAROXABAN 20 MG TAB PO SCH (08:11)
[2018-06-03] MEDS: guaiFENesin 600 MG TABLET.ER PO SCH ×2 (08:11→21:43)
--- NOTE | 2018-06-03 10:39 | P.CRDCN ---
History of Present Illness History of present illness: This is a pleasant 63-year-old female past medical history significant for tricuspid and mitral regurgitation, COPD, CVA, hypertension, dyslipidemia and chronic nicotine dependence. She follows in the office with Dr. Silva. We have been asked to see her in consultation regarding mitral regurgitation. The patient underwent a LEVI with Dr. Silva in July 2017 revealing a mildly dilated left atrium with a normal appearance of left atrial appendage, normal LV size and systolic function, mild to moderate tricuspid regurgitation with no evidence of pulmonary hypertension, moderate to severe mitral regurgitation, no shunting across the intra-atrial septum and normal appearing aortic valve. Echocardiogram obtained on this admission reveals preserved left ventricular systolic function with ejection fraction 55-60%, severe mitral regurgitation, mild tricuspid regurgitation and moderate pulmonary hypertension with an RVSP of 57 mmHg. At that time the patient was recommended surgical intervention. The patient presented to the hospital 2 days ago with symptoms of shortness of breath that has been increasing over the previous month. She also has had a significant productive cough as well as exertional dyspnea. In the emergency department her oxygen saturation was only 81%. She denies symptoms of chest discomfort, dizziness, palpitations, nausea, vomiting or diaphoresis. She states since admission she is feeling somewhat better overall however continues to have exertional shortness of breath and fatigue. EKG reveals sinus tachycardia heart rate of 107. No acute ST or T wave abnormalities noted. Chest x-ray on admission is negative for acute cardiopulmonary process with mild enzymatic changes. Laboratory data reviewed, WBC 10.3 down from 16.7 on admission, hemoglobin 12.6, platelets 214, sodium 138, potassium 4.0, creatinine 0.48, cardiac enzymes negative 3, magnesium 2.2, NT proBNP 287. Current cardiac medications include diltiazem 180 mg daily, Lasix 40 mg daily, losartan 25 mg daily, Xarelto 20 mg daily and simvastatin 20 mg daily. At the time of my exam: CONSTITUTIONAL: Denies fever. Denies chills. EYES: Denies blurred vision. Denies vision changes. Denies eye pain. EARS, NOSE, MOUTH & THROAT: Denies headache. Denies sore throat. Denies ear pain. CARDIOVASCULAR: Denies chest pain. Complains of shortness of breath. Denies orthopnea. Denies PND. Denies palpitations. RESPIRATORY: Complains of cough. GASTROINTESTINAL: Denies abdominal pain. Denies diarrhea. Denies constipation. Denies nausea. Denies vomiting. MUSCULOSKELETAL: Denies myalgias. INTEGUMENTARY: Denies pruitis. Denies rash. NEUROLOGIC: Denies numbness. Denies tingling. Denies weakness. PSYCHIATRIC: Denies anxiety. Denies depression. ENDOCRINE: Complains of fatigue. Denies weight change. Denies polydipsia. Denies polyurina. GENITOURINARY: Denies burning, hematuria or urgency with micturation. HEMATOLOGIC: Denies history of anemia. Denies bleeding. Blood pressure 160/68 heart rate 83 afebrile maintaining oxygen saturation on nasal cannula GENERAL: This is a 63-year-old female in no apparent distress at the time of my examination. HEENT: Head is atraumatic, normocephalic. Pupils are equal, round. Sclerae anicteric. Conjunctivae are clear. Mucous membranes of the mouth are moist. Neck is supple. There is no jugular venous distention. No carotid bruit is heard. LUNGS: Course rhonchi, expiratory wheeze, no rales and diminished bilaterally. No chest wall tenderness is noted on palpation or with deep breathing. HEART: Regular rate and rhythm with systolic ejection murmur at the apex, no rubs or gallops. S1 and S2 heard. ABDOMEN: Soft, nontender. Bowel sounds are heard. No organomegaly noted. EXTREMITIES: No evidence of peripheral edema and no calf tenderness noted. VASCULAR: Radial and dorsalis pedis pulses palpated, no evidence of clubbing. NEUROLOGIC: Patient is awake, alert and oriented x3. ASSESSMENT Acute exacerbation of COPD Acute on chronic hypoxic respiratory failure Severe mitral regurgitation Hypertension Dyslipidemia History of pulmonary embolism on long-term anticoagulation Chronic nicotine dependence PLAN Ongoing medical management for acute exacerbation of chronic COPD. Smoking cessation recommended. Patient is currently euvolemic with no indications of heart failure noted. Lengthy discussion had with the patient regarding her mitral valve disease and the need for surgical intervention per CT surgery. We will continue to follow as needed, follow up with Dr. Silva upon discharge. Thank you kindly for this consultation. Nurse Practitioner note has been reviewed, I agree with a documented findings and plan of care. Patient was seen and examined. Past Medical History Past Medical History: COPD, CVA/TIA, Hyperlipidemia, Hypertension, Memory Impairment, Pulmonary Embolus (PE), Thyroid Disorder Additional Past Medical History / Comment(s): CVA WITH LEFT SIDED EYE DROOP, NUMBNESS ALAN FINGERS, LEFT LEG SWELLING, DDD, SPINAL STENOSIS, leaky valve History of Any Multi-Drug Resistant Organisms: None Reported Past Surgical History: Back Surgery Additional Past Surgical History / Comment(s): d&c's, ALAN CATARACT SX Past Anesthesia/Blood Transfusion Reactions: No Reported Reaction Additional Past Anesthesia/Blood Transfusion Reaction / Comment(s): "anesthesia took more than usual, I didn't go under" Past Psychological History: Anxiety Smoking Status: Current every day smoker Past Alcohol Use History: None Reported Additional Past Alcohol Use History / Comment(s): smokes 10-15 cigarettes a day, from age 17 Past Drug Use History: None Reported - Past Family History Sister(s) Family Medical History: Cancer Additional Family Medical History / Comment(s): breast Medications and Allergies Home Medications Medication Instructions Recorded Confirmed Type Morphine Sulfate ER [Ms Contin] 60 mg PO TID 06/06/14 06/01/18 History Simvastatin [Zocor] 20 mg PO DAILY 06/06/14 06/01/18 History DULoxetine HCL [Cymbalta] 60 mg PO DAILY 07/22/17 06/01/18 History Fluticasone/Vilanterol [Breo 1 puff INHALATION RT-DAILY 07/22/17 06/01/18 History Ellipta 200-25 Mcg INH] Levothyroxine Sodium [Synthroid] 50 mcg PO DAILY 07/22/17 06/01/18 History Pregabalin [Lyrica] 150 mg PO BID 07/22/17 06/01/18 History Rivaroxaban [Xarelto] 20 mg PO DAILY 07/22/17 06/01/18 History oxyCODONE-APAP 10-325MG [Percocet 1 tab PO BID PRN 07/22/17 06/01/18 History 10-325 mg] predniSONE 10 mg PO DAILY 07/22/17 06/01/18 History Albuterol Inhaler [Ventolin Hfa 2 puff INHALATION RT-Q6H PRN 06/01/18 06/01/18 History Inhaler] Diltiazem HCl [Diltiazem 24Hr ER] 180 mg PO DAILY 06/01/18 06/01/18 History Furosemide [Lasix] 40 mg PO DAILY 06/01/18 06/01/18 History Ipratropium-Albuterol Nebulize 3 ml INHALATION RT-QID PRN 06/01/18 06/01/18 History [Duoneb 0.5 mg-3 mg/3 ml Soln] Losartan [Cozaar] 25 mg PO DAILY 06/01/18 06/01/18 History Tiotropium 18 Mcg/Puff [Spiriva] 1 cap INHALATION RT-DAILY 06/01/18 06/01/18 History clonazePAM [KlonoPIN] 1 mg PO HS 06/01/18 06/01/18 History clonazePAM [KlonoPIN] 2 mg PO QAM 06/01/18 06/01/18 History Allergies Allergy/AdvReac Type Severity Reaction Status Date / Time amoxicillin trihydrate Allergy Rash/Hives Verified 06/01/18 17:21 [From Augmentin] cefaclor [From Ceclor] Allergy Rash/Hives Verified 06/01/18 17:21 Iodinated Contrast- Oral and Allergy Throat Verified 06/01/18 17:21 IV Dye Swelling [Iodinated Contrast Media - IV Dye] Penicillins Allergy Rash/Hives Verified 06/01/18 17:21 potassium clavulanate Allergy Rash/Hives Verified 06/01/18 17:21 [From Augmentin] Physical Exam Vitals: Vital Signs Temp Pulse Pulse Resp BP Pulse Ox 06/03/18 08:00 20 06/03/18 07:51 92 06/03/18 07:33 88 06/03/18 07:00 97.6 F 97 20 137/80 95 06/03/18 04:36 106 H 06/03/18 04:29 92 06/03/18 04:04 84 96 06/03/18 00:55 97.8 F 86 20 145/72 99 06/03/18 00:40 88 06/03/18 00:32 96 06/03/18 00:29 95 06/02/18 21:41 100 06/02/18 20:02 100 06/02/18 19:59 107 H 20 132/62 06/02/18 19:42 100 06/02/18 19:30 107 H 20 06/02/18 17:10 98.6 F 104 H 20 130/58 06/02/18 17:08 100 06/02/18 16:53 100 06/02/18 16:00 97 16 Intake and Output 06/02/18 06/03/18 06/03/18 22:59 06:59 14:59 Intake Total 400 Output Total 400 400 Balance 0 -400 Intake: Oral 400 Output: Urine 400 400 Straight 400 Other: Voiding Method Toilet # Voids 1 Results 06/02/18 06:48 06/02/18 06:48 Current Medications Generic Name Dose Route Start Last Admin Trade Name Freq PRN Reason Stop Dose Admin Albuterol/Ipratropium 3 ml 06/01/18 20:00 06/03/18 07:33 Duoneb 0.5 Mg-3 Mg/3 Ml Soln INHALATION 3 ml RT-QID ROCHELLE Administration Albuterol/Ipratropium 3 ml 06/01/18 18:59 06/03/18 04:28 Duoneb 0.5 Mg-3 Mg/3 Ml Soln INHALATION 3 ml RT-Q4H PRN Administration Shortness Of Breath Or Wheezing Amoxicillin/Clavulanate Potassium 1 each 06/02/18 10:00 06/03/18 08:05 Augmentin 875-125 PO 1 each Q12HR ROCHELLE Administration Atorvastatin Calcium 10 mg 06/02/18 09:00 06/03/18 08:05 Lipitor PO 10 mg DAILY ROCHELLE Administration Budesonide/Formoterol Fumarate 2 puff 06/02/18 08:00 06/03/18 07:33 Symbicort 160-4.5 Mcg Inhaler INHALATION 2 puff RT-BID ROCHELLE Administration Clonazepam 1 mg 06/01/18 21:00 06/02/18 21:17 Klonopin PO 1 mg HS ROCHELLE Administration Clonazepam 2 mg 06/02/18 09:00 06/03/18 08:05 Klonopin PO 2 mg QAM ROCHELLE Administration Diltiazem HCl 180 mg 06/02/18 09:00 06/03/18 08:05 Cardizem Cd PO 180 mg DAILY ROCHELLE Administration Duloxetine HCl 60 mg 06/02/18 09:00 06/03/18 08:05 Cymbalta PO 60 mg DAILY ROCHELLE Administration Furosemide 40 mg 06/02/18 09:00 06/03/18 08:05 Lasix PO 40 mg DAILY ROCHELLE Administration Guaifenesin 1,200 mg 06/01/18 21:00 06/03/18 08:11 Mucinex PO 1,200 mg Q12HR ROCHELLE Administration Insulin Aspart 0 unit 06/02/18 21:00 06/03/18 08:04 Novolog SQ 4 unit ACHS ROCHELLE Administration Protocol Levothyroxine Sodium 50 mcg 06/02/18 06:30 06/03/18 06:01 Synthroid PO 50 mcg DAILY@0630 ROCHELLE Administration Losartan Potassium 25 mg 06/02/18 09:00 06/03/18 08:05 Cozaar PO 25 mg DAILY ROCHELLE Administration Methylprednisolone Sodium Succinate 60 mg 06/02/18 00:00 06/03/18 06:01 Solu-Medrol IV 60 mg Q6HR ROCHELLE Administration Morphine Sulfate 60 mg 06/01/18 22:00 06/03/18 08:05 Ms Contin PO 60 mg TID ROCHELLE Administration Nicotine 1 patch 06/02/18 10:15 06/03/18 08:04 Habitrol 14mg/24hr Patch TRANSDERM 1 patch DAILY ROCHELLE Administration Pregabalin 150 mg 06/01/18 21:00 06/03/18 08:06 Lyrica PO 150 mg BID ROCHELLE Administration Rivaroxaban 20 mg 06/02/18 09:00 06/03/18 08:11 Xarelto PO 20 mg DAILY ROCHELLE Administration Intake and Output 06/02/18 06/03/18 06/03/18 22:59 06:59 14:59 Intake Total 400 Output Total 400 400 Balance 0 -400 Intake: Oral 400 Output: Urine 400 400 Straight 400 Other: Voiding Method Toilet # Voids 1 06/02/18 06:48 06/02/18 06:48
[2018-06-03] MEDS ORDERED: LORazepam 2 MG/ML INJ IV PRN (11:49)
[2018-06-03 12:05] LABS: Glucose,Whole Blood 223 mg/dL (75-99)
--- NOTE | 2018-06-03 12:06 | P.PN ---
Subjective Progress Note Date: 06/03/18 Principal diagnosis: COPD exacerbation, urine retention Patient was examined. No acute events overnight. Patient reports improvement in her breathing, continues to complain a cough productive green sputum along with nasal discharge of green mucus. Patient states that she is 50% back to baseline. Reports from nurse, indicating the patient has been retaining urine over 2000 mL needed to be straight cathed overnight and this morning. Patient reports some issues with urinating prior to coming in. Patient reports that she is usually able to urinate fully, but at times states that she can only urinate a little bit out of time. She denies any dysuria or hematuria. She denies any nausea or vomiting. No fever or chills. No abdominal pain. Objective - Vital Signs Vital signs: Vital Signs Temp 97.6 F 06/03/18 07:00 Pulse 104 H 06/03/18 11:34 Resp 20 06/03/18 08:00 BP 137/80 06/03/18 07:00 Pulse Ox 95 06/03/18 07:00 Intake & Output 06/02/18 06/03/18 06/03/18 18:59 06:59 18:59 Intake Total 1000 Output Total 800 500 Balance 1000 -800 -500 Intake: Intake, IV Titration 600 Amount Sodium Chloride 0.9% 1, 600 000 ml @ 100 mls/hr IV . Q10H STA Rx#:[id number] Oral 400 Output: Urine 800 500 Straight 400 500 Other: Voiding Method Toilet # Voids 3 1 - Exam General: [non toxic], [dyspneic], [appears at stated age] Derm: [warm], [dry] Head: [atraumatic], [normocephalic], [symmetric] Eyes: [EOMI], [no lid lag], [anicteric sclera] Mouth: [no lip lesion], [mucus membranes moist] Cardiovascular: [S1S2 reg], [tachycardia], [positive DP pulse bilateral], Lungs: [Decreased breath sounds bilaterally with end expiratory wheezing], [no rhonchi, no rales] , [no accessory muscle use] Abdominal: [soft], [ nontender to palpation], [no guarding], [no appreciable organomegaly] Ext: [no gross muscle atrophy], [no edema], [no contractures] Neuro: [no focal neuro deficits] Psych: [Alert], [oriented], [appropriate affect] - Labs CBC & Chem 7: 06/02/18 06:48 06/02/18 06:48 Labs: Abnormal Lab Results - Last 24 Hours (Table) 06/02/18 06/02/18 06/03/18 Range/Units 16:49 19:35 07:02 POC Glucose (mg/dL) 154 H 267 H 191 H (75-99) mg/dL Microbiology - Last 24 Hours (Table) 06/01/18 17:05 Blood Culture - Preliminary Blood No Growth after 24 hours Assessment and Plan Assessment: Assessment and Plan 1. COPD exacerbation 2. Urine retention 3. Sinusitis 4. Pulmonary embolus 5. Severe mitral regurgitation 6. Hypertension 7. Hypothyroidism 8. History of CVA 1. Likely secondary to acute bronchitis. Continue DuoNeb 4 times a day scheduled and as needed for shortness of breath and wheezing. Continue Solu- Medrol 60 mg IV every 6 hours. Continue Symbicort inhaler. O2 per nasal ca nnula to maintain an O2 saturation greater than 92%. Will follow pulmonology recommendations. Chest x-ray done at Dr. Valdez[facility] clinic, no pneumonia seen. 2. Unknown etiology. UA reflex to culture. Bladder scan as needed. Straight cath as needed. Start Flomax. Follow urology consult. 3. ALLERGY to penicillin in the past only included rash. Continue Augmentin for sinusitis. Continue Mucinex. 4. Continue Xarelto. O2 per nasal cannula to maintain an O2 saturation greater than 92%. Telemetry monitoring. Will follow pulmonology recommendations. 5. Seen on previous LEVI. Might be contributing to her respiratory distress. Cardiology consulted, recommends outpatient follow-up as patient is not in acute heart failure. Continue Lasix and [place] inhibitor. 6. BP 142/78. Continue diltiazem. Continue Lasix. Continue losartan. Monitor vitals, adjust medications as necessary. 7. Continue Synthroid. 8. Stable. Continue Lipitor, Xarelto. Patient admitted for COPD exacerbation. She is pending clinical improvement. Urology consulted for urinary retention.
[2018-06-03] MEDS: TAMSULOSIN 0.4 MG CAP.ER.24H PO SCH (12:18)
--- NOTE | 2018-06-03 16:06 | P.PN ---
Subjective Progress Note Date: 06/03/18 Principal diagnosis: Acute exacerbation of severe oxygen dependent chronic obstructive pulmonary disease. This is a very pleasant 63-year-old female patient who follows with Dr. Hamilton as her primary care physician. She has a history of spinal stenosis of the lumbar region, mitral valve regurgitation, osteoarthritis, hyperlipidemia, pulmonary embolism anticoagulated with Xarelto. She also has a history of chronic tobacco dependence, severe chronic obstructive pulmonary disease, chronic hypoxemic respiratory failure, multiple nodules lung. She follows with Dr. Simpson in our office. He was seen by Dr. Lore Blandon in his absence yesterday for an acute exacerbation of her COPD. She was quite dyspneic and was referred to the emergency room for treatment. She is seen today in consultation. Her chest x- ray shows no evidence of acute pneumonia. She is seen today in consultation on the regular medical floor. She is currently awake and alert. She is quite dyspneic on minimal exertion. Dyspnea with conversation. He is maintaining O2 saturations in the low 90s on 2 L/m per nasal cannula. She is currently afebrile. Hemodynamically stable. White count 10.3. Hemoglobin 12.6. Creatinine 0.48. She's been initiated on DuoNeb inhalations, Symbicort, IV Solu-Medrol. Empiric antibiotics in the form of Augmentin. Unfortunately she does continue to smoke. Habitrol patch is in place. The patient is seen today 06/03/2018 in follow-up on the regular medical floor. She is awake and alert in no acute distress. She is breathing easier today as compared to yesterday. She's been up ambulating in her room without acute distress.she is still somewhat bronchospastic and wheezy. She is maintaining good O2 saturations in the mid 90s on 2 L/m per nasal cannula. She's afebrile. Hemodynamically stable. Blood cultures reveal no growth. She remains on DuoNeb inhalations, Symbicort, IV Solu-Medrol and antibiotics in the form of Augmentin. Objective - Vital Signs Vital signs: Vital Signs Temp 98.3 F 06/03/18 15:00 Pulse 96 06/03/18 15:26 Resp 20 06/03/18 15:00 BP 131/70 06/03/18 15:00 Pulse Ox 95 06/03/18 15:00 Intake & Output 06/02/18 06/03/18 06/03/18 18:59 06:59 18:59 Intake Total 1000 750 Output Total 800 1000 Balance 1000 -800 -250 Intake: Intake, IV Titration 600 Amount Sodium Chloride 0.9% 1, 600 000 ml @ 100 mls/hr IV . Q10H STA Rx#:[id number] Oral 400 750 Output: Urine 800 1000 Straight 400 500 Other: Voiding Method Toilet # Voids 3 1 - Exam GENERAL EXAM: Alert, active, comfortable in no respiratory distress. Oxygen at 2 L/m per nasal cannula. HEAD: Normocephalic. EYES: Normal reaction of pupils, equal size. NOSE: Clear with pink turbinates. THROAT: No erythema or exudates. NECK: No masses, no JVD. CHEST: No chest wall deformity. LUNGS: Equal air entry with bilateral end expiratory wheeze, few scattered rhonchi. CVS: S1 and S2 normal with no audible murmur, regular rhythm. ABDOMEN: No hepatosplenomegaly, normal bowel sounds, no guarding or rigidity. SPINE: No scoliosis or deformity SKIN: No rashes CENTRAL NERVOUS SYSTEM: No focal deficits, tone is normal in all 4 extremities. EXTREMITIES: There is trace peripheral edema. No clubbing, no cyanosis. Peripheral pulses are intact. - Labs CBC & Chem 7: 06/02/18 06:48 06/02/18 06:48 Labs: Abnormal Lab Results - Last 24 Hours (Table) 06/02/18 06/02/18 06/03/18 Range/Units 16:49 19:35 07:02 POC Glucose (mg/dL) 154 H 267 H 191 H (75-99) mg/dL 06/03/18 Range/Units 12:03 POC Glucose (mg/dL) 223 H (75-99) mg/dL Microbiology - Last 24 Hours (Table) 06/01/18 17:05 Blood Culture - Preliminary Blood No Growth after 24 hours Assessment and Plan Assessment: Impression: #1 Acute exacerbation of chronic obstructive pulmonary disease. #2 Acute on chronic hypoxic respiratory failure secondary to above. #3 Chronic and ongoing tobacco dependence. #4 Hypertension. #5 Hyperlipidemia. #6 History of pulmonary embolism, anticoagulated with Xarelto. #7 Hypothyroidism. #8 CVA with left-sided eye droop. #9 anxiety. Plan: The patient was seen and evaluated by Dr. Simpson. The patient is improved today as compared to yesterday but not quite back to her baseline. We'll cont inue with her current treatment for her COPD exacerbation including IV Solu- Medrol, DuoNeb inhalations, Symbicort inhalations. Anticoagulant with Xarelto. We will continue to follow and make further recommendations based on her clinical status. I, the cosigning physician, performed a history & physical examination of the patient. Lungs sounds with bilateral end expiratory wheeze, few scattered rhonchi, diminished. Maintaining good O2 saturations in the 90s on 2 L/m per nasal cannula. I discussed the assessment and plan of care with my nurse practitioner, Cynthia Ken. I attest to the above note as dictated by her.
[2018-06-03 17:10] LABS: Glucose,Whole Blood 138 mg/dL (75-99)
[2018-06-03 17:48] LABS: Appearance,Urine Clear (Clear); Bacteria,Urine Rare /hpf; Bilirubin,Urine Negative (Negative); Blood,Urine Negative (Negative); Color,Urine Light Yellow; Glucose,Urine (UA) 1+ (Negative); Ketones,Urine Negative (Negative); Leukocyte Esterase,Urine Large (Negative); Mucus,Urine Rare /hpf; Nitrite,Urine Negative (Negative); Protein,Urine Negative (Negative); Specific Gravity,Urine 1.011 (1.001-1.035); Squamous Epithelial Cell,Urine 1 /hpf (0-4); Urobilinogen,Urine <2.0 mg/dL (<2.0)
[2018-06-03 20:11] LABS: Glucose,Whole Blood 275 mg/dL (75-99)
[2018-06-04] MEDS: IPRATROPIUM-ALBUTEROL 3 ML NEB INHALATION PRN ×2 (00:30→04:26)
[2018-06-04] MEDS: methylPREDNISolone SOD SUCCI 125 MG/2 ML VIAL IV SCH ×3 (01:36→11:30)
[2018-06-04] MEDS: LEVOTHYROXINE 50 MCG TAB PO SCH (06:02)
[2018-06-04 07:31] LABS: Glucose,Whole Blood 172 mg/dL (75-99)
[2018-06-04] MEDS: IPRATROPIUM-ALBUTEROL 3 ML NEB INHALATION SCH ×4 (07:32→19:45)
[2018-06-04] MEDS: SYMBICORT 160-4.5 MCG INHALER INHALATION SCH ×3 (07:32→19:57)
[2018-06-04] MEDS: NICOTINE 14MG/24HR PATCH TRANSDERM SCH (08:35)
[2018-06-04] MEDS: DULoxetine HCL 60 MG CAPSULE.DR PO SCH (08:35)
[2018-06-04] MEDS: FUROSEMIDE 40 MG TAB PO SCH (08:35)
[2018-06-04] MEDS: INSULIN ASPART (NovoLOG) 100 UNIT/ML VIAL SQ SCH ×4 (08:35→22:05)
[2018-06-04] MEDS: ATORVASTATIN 10 MG TAB PO SCH (08:36)
[2018-06-04] MEDS: MORPHINE SULFATE ER 60 MG TABLET PO SCH ×3 (08:36→22:19)
[2018-06-04] MEDS: LOSARTAN 25 MG TAB PO SCH (08:36)
[2018-06-04] MEDS: clonazePAM 1 MG TAB PO SCH ×2 (08:36→22:04)
[2018-06-04] MEDS: guaiFENesin 600 MG TABLET.ER PO SCH ×2 (08:36→22:04)
[2018-06-04] MEDS: TAMSULOSIN 0.4 MG CAP.ER.24H PO SCH (08:36)
[2018-06-04] MEDS: PREGABALIN 75 MG CAP PO SCH ×2 (08:36→22:04)
[2018-06-04] MEDS: RIVAROXABAN 20 MG TAB PO SCH (08:45)
[2018-06-04] MEDS: DILTIAZEM CD 180 MG CAP.ER.24H PO SCH (08:45)
[2018-06-04] MEDS: AMOXIC-POT CLAV 875-125MG 1 EACH TAB PO SCH ×2 (08:45→22:04)
--- NOTE | 2018-06-04 09:52 | P.GSCN ---
History of Present Illness Consult date: 06/04/18 Reason for Consult: Urinary retention History of present illness: The patient is a 63-year-old female admitted on 06/02 for evaluation of persis tent shortness of breath and difficulty breathing which had started 2-3 weeks prior to admission. Patient has been felt to have a combination of bronchitis and possible pneumonia superimposed on COPD. She says that she has improved somewhat since she was admitted and started on antibiotics. The patient was voiding on her own prior to admission but has had difficulty voiding since she was admitted and has required intermittent catheterization on several occasions. The amounts drained from her bladder have ranged between 400 and 700 mL. A Henry catheter was placed this morning and has been left in place. The patient was also started on tamsulosin. I was asked to see the patient for further evaluation. The patient has no previous history of urinary retention. She says she normally voids every 2-3 hours during the day and occasionally at night. She had noted some sensations of incomplete bladder emptying for 4-6 weeks prior to her admission but did not feel this was a major issue. She has complained of urgency but has never experienced urge incontinence. She has had only rare urinary tract infections in the past. She has no history of gross hematuria. She says her bowels usually move daily however at times she says she will go 2 or 3 days without a bowel movement but this is self treated with stool softeners. She's had no recent difficulty with her bowels. Review of Systems - Constitutional Reports fatigue - Cardiovascular Reports shortness of breath, Denies chest pain - Respiratory Reports cough with sputum, Reports dyspnea - Gastrointestinal Denies abdominal pain, Denies change in bowel habits - Genitourinary Genitourinary: Reports as per HPI Past Medical History Past Medical History: COPD, CVA/TIA, Hyperlipidemia, Hypertension, Memory Impairment, Pulmonary Embolus (PE), Thyroid Disorder Additional Past Medical History / Comment(s): CVA WITH LEFT SIDED EYE DROOP, NUMBNESS ALAN FINGERS, LEFT LEG SWELLING, DDD, SPINAL STENOSIS, severe mitral and moderate tricuspid valve regurgitation History of Any Multi-Drug Resistant Organisms: None Reported Past Surgical History: Back Surgery (Lumbosacral spine) Additional Past Surgical History / Comment(s): d&c's, ALAN CATARACT SX Past Anesthesia/Blood Transfusion Reactions: No Reported Reaction Additional Past Anesthesia/Blood Transfusion Reaction / Comm: "anesthesia took more than usual, I didn't go under" Past Psychological History: Anxiety Smoking Status: Current every day smoker Past Alcohol Use History: None Reported Additional Past Alcohol Use History / Comment(s): smokes 10-15 cigarettes a day, from age 17 Past Drug Use History: None Reported - Past Family History Sister(s) Family Medical History: Cancer Additional Family Medical History / Comment(s): breast Medications and Allergies Home Medications Medication Instructions Recorded Confirmed Type Morphine Sulfate ER [Ms Contin] 60 mg PO TID 06/06/14 06/01/18 History Simvastatin [Zocor] 20 mg PO DAILY 06/06/14 06/01/18 History DULoxetine HCL [Cymbalta] 60 mg PO DAILY 07/22/17 06/01/18 History Fluticasone/Vilanterol [Breo 1 puff INHALATION RT-DAILY 07/22/17 06/01/18 History Ellipta 200-25 Mcg INH] Levothyroxine Sodium [Synthroid] 50 mcg PO DAILY 07/22/17 06/01/18 History Pregabalin [Lyrica] 150 mg PO BID 07/22/17 06/01/18 History Rivaroxaban [Xarelto] 20 mg PO DAILY 07/22/17 06/01/18 History oxyCODONE-APAP 10-325MG [Percocet 1 tab PO BID PRN 07/22/17 06/01/18 History 10-325 mg] predniSONE 10 mg PO DAILY 07/22/17 06/01/18 History Albuterol Inhaler [Ventolin Hfa 2 puff INHALATION RT-Q6H PRN 06/01/18 06/01/18 History Inhaler] Diltiazem HCl [Diltiazem 24Hr ER] 180 mg PO DAILY 06/01/18 06/01/18 History Furosemide [Lasix] 40 mg PO DAILY 06/01/18 06/01/18 History Ipratropium-Albuterol Nebulize 3 ml INHALATION RT-QID PRN 06/01/18 06/01/18 History [Duoneb 0.5 mg-3 mg/3 ml Soln] Losartan [Cozaar] 25 mg PO DAILY 06/01/18 06/01/18 History Tiotropium 18 Mcg/Puff [Spiriva] 1 cap INHALATION RT-DAILY 06/01/18 06/01/18 History clonazePAM [KlonoPIN] 1 mg PO HS 06/01/18 06/01/18 History clonazePAM [KlonoPIN] 2 mg PO QAM 06/01/18 06/01/18 History Allergies Allergy/AdvReac Type Severity Reaction Status Date / Time amoxicillin trihydrate Allergy Rash/Hives Verified 06/01/18 17:21 [From Augmentin] cefaclor [From Ceclor] Allergy Rash/Hives Verified 06/01/18 17:21 Iodinated Contrast- Oral and Allergy Throat Verified 06/01/18 17:21 IV Dye Swelling [Iodinated Contrast Media - IV Dye] Penicillins Allergy Rash/Hives Verified 06/01/18 17:21 potassium clavulanate Allergy Rash/Hives Verified 06/01/18 17:21 [From Augmentin] Surgical - Exam Vital Signs Temp Pulse Resp BP Pulse Ox 97.8 F 83 22 116/68 95 06/01/18 16:38 06/01/18 16:38 06/01/18 16:38 06/01/18 16:38 06/01/18 16:38 - General well developed, well nourished, no distress, chronically ill, obese - ENT no hearing loss - Neck no masses, no lymphadectomy - Respiratory other (Mild shortness of breath with getting in bed and talking) - Abdomen Abdomen: soft, non tender, no organomegaly, no masses Hernia: none - Genitourinary normal external genitalia, normal perineum, other (No pelvic masses noted on bimanual examination. No palpable evidence of fecal impaction) Results - Labs 06/02/18 06:48 06/02/18 06:48 Abnormal Lab Results - Last 24 Hours (Table) 06/03/18 06/03/18 06/03/18 Range/Units 12:03 17:00 17:08 POC Glucose (mg/dL) 223 H 138 H (75-99) mg/dL Urine Glucose (UA) 1+ H (Negative) Ur Leukocyte Esterase Large H (Negative) Urine WBC 9 H (0-5) /hpf Urine Bacteria Rare H (None) /hpf Urine Mucus Rare H (None) /hpf 06/03/18 06/04/18 Range/Units 20:10 07:28 POC Glucose (mg/dL) 275 H 172 H (75-99) mg/dL Urine Glucose (UA) (Negative) Ur Leukocyte Esterase (Negative) Urine WBC (0-5) /hpf Urine Bacteria (None) /hpf Urine Mucus (None) /hpf Microbiology - Last 24 Hours (Table) 06/01/18 17:05 Blood Culture - Preliminary Blood No Growth after 48 hours Assessment and Plan (1) Urinary retention Narrative/Plan: The cause of the patient's urinary retention is not clear. She says that she was taking a new medication for 4-6 weeks prior to admission she could not recall what it was or exactly what it was supposed to do. She has had moderate amounts of urine present within her bladder when she was catheterized but she says she was actually not uncomfortable at those times. The only medication she is currently on which could potentially be a problem as far as incomplete bladder emptying is Cymbalta but she says she's been on this for a long time and the dose has not been changed. The patient will be continued on tamsulosin. She will be given a voiding trial either tomorrow or the following day. Current Visit: Yes Status: Acute Code(s): R33.9 - RETENTION OF URINE, UNSPECIFIED SNOMED Code(s): 196642101
[2018-06-04 12:16] LABS: Glucose,Whole Blood 187 mg/dL (75-99)
[2018-06-04] MEDS ORDERED: CLOTRIMAZOLE TROCHE 10 MG TROCHE MUCOUS MEM SCH (12:30)
[2018-06-04] MEDS ORDERED: FLUCONAZOLE 100 MG TAB PO SCH (13:30)
--- NOTE | 2018-06-04 13:43 | P.PN ---
Subjective Progress Note Date: 06/04/18 On today's evaluation of 06/04/2018, the patient is much improved. She is not having any major respiratory difficulties addressed. She has a congested cough. Last bronchus spastic and wheezy compared to yesterday. She is having difficulty tolerating her food as the patient has developed extensive orop haryngeal candidiasis. She is on oxygen 2 L per minute nasal cannula. Blood cultures of been negative. She is on Symbicort and DuoNeb nebulized treatments around the clock. She remains on IV Solu-Medrol. She is also on long-term anticoagulation with Xarelto. Smoking cessation counseling was done. She was offered a nicotine patch. Objective - Vital Signs Vital signs: Vital Signs Temp 97.8 F 06/04/18 07:00 Pulse 96 06/04/18 11:33 Resp 16 06/04/18 07:00 BP 141/69 06/04/18 07:00 Pulse Ox 93 L 06/04/18 07:00 Intake & Output 06/03/18 06/04/18 06/04/18 18:59 06:59 18:59 Intake Total 750 240 Output Total 1000 1525 Balance -250 -1525 240 Intake: Oral 750 240 Output: Urine 1000 1525 Straight 500 625 Other: Voiding Method Indwelling Catheter # Voids 200 - Exam GENERAL EXAM: Alert, active, comfortable in no respiratory distress. Oxygen at 2 L/m per nasal cannula. HEAD: Normocephalic. EYES: Normal reaction of pupils, equal size. NOSE: Clear with pink turbinates. THROAT: No erythema or exudates. Oropharyngeal candidiasis. NECK: No masses, no JVD. CHEST: No chest wall deformity. LUNGS: Equal air entry with bilateral end expiratory wheeze, few scattered rhonchi. CVS: S1 and S2 normal with no audible murmur, regular rhythm. ABDOMEN: No hepatosplenomegaly, normal bowel sounds, no guarding or rigidity. SPINE: No scoliosis or deformity SKIN: No rashes CENTRAL NERVOUS SYSTEM: No focal deficits, tone is normal in all 4 extremities. EXTREMITIES: There is trace peripheral edema. No clubbing, no cyanosis. Peripheral pulses are intact. - Labs CBC & Chem 7: 06/02/18 06:48 06/02/18 06:48 Labs: Abnormal Lab Results - Last 24 Hours (Table) 06/03/18 06/03/18 06/03/18 Range/Units 17:00 17:08 20:10 POC Glucose (mg/dL) 138 H 275 H (75-99) mg/dL Urine Glucose (UA) 1+ H (Negative) Ur Leukocyte Esterase Large H (Negative) Urine WBC 9 H (0-5) /hpf Urine Bacteria Rare H (None) /hpf Urine Mucus Rare H (None) /hpf 06/04/18 06/04/18 Range/Units 07:28 12:11 POC Glucose (mg/dL) 172 H 187 H (75-99) mg/dL Urine Glucose (UA) (Negative) Ur Leukocyte Esterase (Negative) Urine WBC (0-5) /hpf Urine Bacteria (None) /hpf Urine Mucus (None) /hpf Microbiology - Last 24 Hours (Table) 06/01/18 17:05 Blood Culture - Preliminary Blood No Growth after 48 hours Assessment and Plan Plan: Impression: #1 Acute exacerbation of chronic obstructive pulmonary disease. Clinically the patient is improving and the patient is less short of breath #2 Acute on chronic hypoxic respiratory failure secondary to above. #3 Chronic and ongoing tobacco dependence. #4 Hypertension. #5 Hyperlipidemia. #6 History of pulmonary embolism, anticoagulated with Xarelto. #7 Hypothyroidism. #8 CVA with left-sided eye droop. #9 anxiety. #10 oropharyngeal candidiasis Plan: Continue treatment with a prednisone burst taper and discontinue the IV Solu- Medrol. Offered the patient flutter valve. Offered the patient Diflucan 100 mg by mouth daily regarding oropharyngeal candidiasis. He has advanced COPD. She remains on a combination of Spiriva and Breo Ellipta on outpatient basis. Discharge as per medicine.
[2018-06-04] MEDS: FLUCONAZOLE 100 MG TAB PO SCH (13:47)
[2018-06-04] MEDS ORDERED: NICOTINE POLACRILEX 2 MG GUM BUCCAL PRN (14:20)
--- NOTE | 2018-06-04 16:52 | P.PN ---
Subjective Progress Note Date: 06/04/18 (delayed charting seen at 1100) Principal diagnosis: shortness of breath Patient is a 63-year-old female past medical history of COPD, chronic pain secondary to spinal stenosis, hypertension, dyslipidemia, pulmonary embolism, and hypothyroidism who presented to the ER with complaints of shortness of breath. In the ER she underwent an extensive evaluation. Her initial vital signs are found within normal limits. Initial laboratory analysis showed an elevated white blood cell count 16.7, slight hyponatremia at 133, and elevated blood sugar at 195. She did not respond initial breathing treatments and steroid injection in the ER she was therefore admitted. Pulmonary was consulted and the patient was maintained on bronchodilators, steroids, and empiric antibiotics. She was slow to improve. She developed significant thrush and Diflucan was ordered as well as swish and swallow. She developed urinary retention overnight on 06/03 and a Henry catheter was placed. She was seen by urology who recommended voiding trial in the next 1-2 days. Patient seen and examined at bedside. She states her breathing is somewhat better than yesterday. She complains of thrush and difficulty dealing with her food as well as a hoarse voice. She complains of a sore throat. She denies any nausea, vomiting, or diarrhea. She is still feeling very fatigued. I discussed with her and encouraged her to walk in the hallways today. Probable discharge tomorrow with or without Henry if able to pass voiding trial, and urology is in agreement with voiding trial. Patient does not want to go home with Henry catheter. Objective - Vital Signs Vital signs: Vital Signs Temp 97.8 F 06/04/18 07:00 Pulse 92 06/04/18 15:59 Resp 16 06/04/18 07:00 BP 141/69 06/04/18 07:00 Pulse Ox 93 L 06/04/18 07:00 Intake & Output 06/03/18 06/04/18 06/04/18 18:59 06:59 18:59 Intake Total 750 240 Output Total 1000 1525 Balance -250 -1525 240 Intake: Oral 750 240 Output: Urine 1000 1525 Straight 500 625 Other: Voiding Method Indwelling Catheter # Voids 200 - Exam General: non toxic, no distress, ears older than stated age Derm: warm, dry Head: atraumatic, normocephalic, symmetric Eyes: EOMI, no lid lag, anicteric sclera Mouth: no lip lesion, mucus membranes moist Cardiovascular: S1S2 reg, no murmur, positive posterior tibial pulse bilateral, Lungs: Wheezing with decreased breath sounds bilateral, no rhonchi, no rales , no accessory muscle use Abdominal: soft, nontender to palpation, no guarding, no appreciable organomegaly Ext: no gross muscle atrophy, 2+ edema, no contractures Neuro: CN II-XI grossly intact, no focal neuro deficits Psych: Alert, oriented, appropriate affect - Labs CBC & Chem 7: 06/02/18 06:48 06/02/18 06:48 Labs: Abnormal Lab Results - Last 24 Hours (Table) 06/03/18 06/03/18 06/03/18 Range/Units 17:00 17:08 20:10 POC Glucose (mg/dL) 138 H 275 H (75-99) mg/dL Urine Glucose (UA) 1+ H (Negative) Ur Leukocyte Esterase Large H (Negative) Urine WBC 9 H (0-5) /hpf Urine Bacteria Rare H (None) /hpf Urine Mucus Rare H (None) /hpf 06/04/18 06/04/18 Range/Units 07:28 12:11 POC Glucose (mg/dL) 172 H 187 H (75-99) mg/dL Urine Glucose (UA) (Negative) Ur Leukocyte Esterase (Negative) Urine WBC (0-5) /hpf Urine Bacteria (None) /hpf Urine Mucus (None) /hpf Microbiology - Last 24 Hours (Table) 06/01/18 17:05 Blood Culture - Preliminary Blood No Growth after 48 hours Assessment and Plan Assessment: Acute exacerbation of COPD -Continue with bronchodilators, change to oral steroids, pulmonary hygiene -Mucinex -On Augmentin -Pulmonary recommendations Acute sinusitis -Augmentin -Add Flonase Urinary retention -Henry catheter in place -Urology recommendations appreciated. Hopefully voiding trial in a.m. -Encourage patient to get up and ambulate -Denies any constipation - flomax Thrush - diflucan per pulmonary - Clotrimazole discontinued Hypertension, controlled -Continue Cozaar, Cardizem Dyslipidemia -Continue statin History of pulmonary embolism -Continue with her also DVT prophylaxis: Xarelto Discussed with: Patient, nursing Anticipated discharge: [address]: home with home health A total of 35 minutes was spent on the care of this complex patient more than 50% of the time was spent in counseling and care coordination.
[2018-06-04 17:15] LABS: Glucose,Whole Blood 135 mg/dL (75-99)
[2018-06-04 20:12] LABS: Glucose,Whole Blood 195 mg/dL (75-99)
[2018-06-04 20:36] VITALS: RESP 16
[2018-06-04] MEDS: FLUTICASONE 50MCG/SPRAY NASAL 16GM EA NOSTRIL SCH (22:04)
[2018-06-05] MEDS: SYMBICORT 160-4.5 MCG INHALER INHALATION SCH ×2 (05:33→05:48)
[2018-06-05] MEDS: IPRATROPIUM-ALBUTEROL 3 ML NEB INHALATION SCH ×2 (05:33→11:01)
[2018-06-05 05:47] VITALS: PULSE 104
[2018-06-05] MEDS: LEVOTHYROXINE 50 MCG TAB PO SCH (05:50)
[2018-06-05] MEDS ORDERED: MORPHINE SULFATE ER 60 MG TABLET PO SCH (07:00)
[2018-06-05] MEDS: clonazePAM 1 MG TAB PO SCH (07:25)
[2018-06-05] MEDS: PREGABALIN 75 MG CAP PO SCH (07:25)
[2018-06-05] MEDS: DULoxetine HCL 60 MG CAPSULE.DR PO SCH (07:25)
[2018-06-05] MEDS: ATORVASTATIN 10 MG TAB PO SCH (07:26)
[2018-06-05] MEDS: FUROSEMIDE 40 MG TAB PO SCH (07:26)
[2018-06-05] MEDS: TAMSULOSIN 0.4 MG CAP.ER.24H PO SCH (07:26)
[2018-06-05] MEDS: LOSARTAN 25 MG TAB PO SCH (07:27)
[2018-06-05] MEDS: guaiFENesin 600 MG TABLET.ER PO SCH (07:27)
[2018-06-05] MEDS: FLUTICASONE 50MCG/SPRAY NASAL 16GM EA NOSTRIL SCH (07:27)
[2018-06-05] MEDS: FLUCONAZOLE 100 MG TAB PO SCH (07:27)
[2018-06-05] MEDS: RIVAROXABAN 20 MG TAB PO SCH (07:28)
[2018-06-05] MEDS: AMOXIC-POT CLAV 875-125MG 1 EACH TAB PO SCH (07:28)
[2018-06-05] MEDS: DILTIAZEM CD 180 MG CAP.ER.24H PO SCH (07:28)
[2018-06-05] MEDS: NICOTINE 14MG/24HR PATCH TRANSDERM SCH (07:29)
[2018-06-05 07:36] LABS: Glucose,Whole Blood 178 mg/dL (75-99)
[2018-06-05] MEDS: INSULIN ASPART (NovoLOG) 100 UNIT/ML VIAL SQ SCH ×2 (07:51→13:36)
[2018-06-05 07:58] VITALS: BP 157/82; TEMP 98.4
[2018-06-05] MEDS ORDERED: predniSONE 20 MG TAB PO SCH (09:00)
[2018-06-05 11:50] LABS: Glucose,Whole Blood 188 mg/dL (75-99)
--- NOTE | 2018-06-05 13:52 | P.PN ---
Subjective Progress Note Date: 06/05/18 Principal diagnosis: Acute exacerbation of severe oxygen dependent chronic obstructive pulmonary disease. This is a very pleasant 63-year-old female patient who follows with Dr. Hamilton as her primary care physician. She has a history of spinal stenosis of the lumbar region, mitral valve regurgitation, osteoarthritis, hyperlipidemia, pulmonary embolism anticoagulated with Xarelto. She also has a history of chronic tobacco dependence, severe chronic obstructive pulmonary disease, chronic hypoxemic respiratory failure, multiple nodules lung. She follows with Dr. Simpson in our office. He was seen by Dr. Lore Blandon in his absence yesterday for an acute exacerbation of her COPD. She was quite dyspneic and was referred to the emergency room for treatment. She is seen today in consultation. Her chest x- ray shows no evidence of acute pneumonia. She is seen today in consultation on the regular medical floor. She is currently awake and alert. She is quite dyspneic on minimal exertion. Dyspnea with conversation. He is maintaining O2 saturations in the low 90s on 2 L/m per nasal cannula. She is currently afebrile. Hemodynamically stable. White count 10.3. Hemoglobin 12.6. Creatinine 0.48. She's been initiated on DuoNeb inhalations, Symbicort, IV Solu-Medrol. Empiric antibiotics in the form of Augmentin. Unfortunately she does continue to smoke. Habitrol patch is in place. The patient is seen today 06/03/2018 in follow-up on the regular medical floor. She is awake and alert in no acute distress. She is breathing easier today as compared to yesterday. She's been up ambulating in her room without acute distress.she is still somewhat bronchospastic and wheezy. She is maintaining good O2 saturations in the mid 90s on 2 L/m per nasal cannula. She's afebrile. Hemodynamically stable. Blood cultures reveal no growth. She remains on DuoNeb inhalations, Symbicort, IV Solu-Medrol and antibiotics in the form of Augmentin. On today's evaluation of 06/04/2018, the patient is much improved. She is not having any major respiratory difficulties addressed. She has a congested cough. Last bronchus spastic and wheezy compared to yesterday. She is having difficulty tolerating her food as the patient has developed extensive oropharyngeal candidiasis. She is on oxygen 2 L per minute nasal cannula. Blood cultures of been negative. She is on Symbicort and DuoNeb nebulized treatments around the clock. She remains on IV Solu-Medrol. She is also on long-term anticoagulation with Xarelto. Smoking cessation counseling was done. She was offered a nicotine patch. The patient is seen today 06/05/2017 in follow-up on the regular medical floor. She remains awake and alert in no acute distress. Sitting up at the bedside. She does desaturate into the 80s on room air. She is in the 90s on 2 L/m per nasal cannula. She's been afebrile. Hemodynamically stable. Blood culture reveals no growth. She has been maintained on DuoNeb inhalations, Symbicort inhalations, prednisone, antibiotics in the form of Augmentin. Anticoagulated with Xarelto. NicoDerm patch is in place. Objective - Vital Signs Vital signs: Vital Signs Temp 98.4 F 06/05/18 07:00 Pulse 104 H 06/05/18 11:11 Resp 16 06/05/18 07:50 BP 157/82 06/05/18 07:00 Pulse Ox 87 L 06/05/18 11:40 Intake & Output 06/04/18 06/05/18 06/05/18 18:59 06:59 18:59 Intake Total 240 Output Total 1300 700 200 Balance -1060 -700 -200 Intake: Oral 240 Output: Urine 1300 700 200 Straight 200 Other: Voiding Method Indwelling Catheter Indwelling Catheter Indwelling Catheter - Exam GENERAL EXAM: Alert, active, comfortable in no respiratory distress. Oxygen at 2 L/m per nasal cannula. HEAD: Normocephalic. EYES: Normal reaction of pupils, equal size. NOSE: Clear with pink turbinates. THROAT: No erythema or exudates. NECK: No masses, no JVD. CHEST: No chest wall deformity. LUNGS: Equal air entry with bilateral end expiratory wheeze, few scattered rhonchi. CVS: S1 and S2 normal with no audible murmur, regular rhythm. ABDOMEN: No hepatosplenomegaly, normal bowel sounds, no guarding or rigidity. SPINE: No scoliosis or deformity SKIN: No rashes CENTRAL NERVOUS SYSTEM: No focal deficits, tone is normal in all 4 extremities. EXTREMITIES: There is trace peripheral edema. No clubbing, no cyanosis. Peripheral pulses are intact. - Labs CBC & Chem 7: 06/02/18 06:48 06/02/18 06:48 Labs: Abnormal Lab Results - Last 24 Hours (Table) 06/04/18 06/04/18 06/05/18 Range/Units 17:03 20:11 07:34 POC Glucose (mg/dL) 135 H 195 H 178 H (75-99) mg/dL 06/05/18 Range/Units 11:49 POC Glucose (mg/dL) 188 H (75-99) mg/dL Microbiology - Last 24 Hours (Table) 06/01/18 17:05 Blood Culture - Preliminary Blood No Growth after 72 hours Assessment and Plan Assessment: Impression: #1 Acute exacerbation of chronic obstructive pulmonary disease. #2 Acute on chronic hypoxic respiratory failure secondary to above. #3 Chronic and ongoing tobacco dependence. #4 Hypertension. #5 Hyperlipidemia. #6 History of pulmonary embolism, anticoagulated with Xarelto. #7 Hypothyroidism. #8 CVA with left-sided eye droop. #9 anxiety. Plan: The patient was seen and evaluated by Dr. Morfin. She is cleared for discharge from the pulmonary standpoint. Continue her home pulmonary medications. Complete her course of antibiotics. Complete a prednisone burst and taper. Follow-up with Dr. Simpson in our office. She is again educated regarding the importance of complete smoking cessation. She is encouraged to call sooner with any recurrence of symptoms or other questions or concerns.. I, the cosigning physician, performed a history & physical examination of the patient. Lungs sounds with bilateral end expiratory wheeze, few scattered rhonchi, diminished. Maintaining good O2 saturations in the 90s on 2 L/m per na zoey cannula. I discussed the assessment and plan of care with my nurse practitioner, Cynthia Ken. I attest to the above note as dictated by her.
--- NOTE | 2018-06-05 20:10 | P.DS ---
Providers Date of admission: 06/02/18 15:01 Expected date of discharge: 06/05/18 Attending physician: Tita Delacruz MD Consults: 06/01/18 19:04 Consult Physician Stat Consulting Provider: Mark Simpson Consult Reason/Comments: COPD Do you want consulting provider notified?: Yes 06/02/18 11:06 Consult Physician Stat Consulting Provider: Berenice Trujillo Consult Reason/Comments: Severe mitrial regurg on previous LEVI Do you want consulting provider notified?: Yes 06/03/18 12:05 Consult Physician Stat Consulting Provider: Holden Palafox Consult Reason/Comments: Urine retention Do you want consulting provider notified?: Yes Primary care physician: Trevor Cardenas MD Hospital Course: Discharge Diagnosis: Acute exacerbation of COPD Acute sinusitis Depression Urinary retention Hypertension Dyslipidemia History of pulmonary embolism Chronic pain Severe mitral regurg Hospital Course: Patient is a 63-year-old female past medical history of COPD, chronic pain secondary to spinal stenosis, hypertension, dyslipidemia, pulmonary embolism, and hypothyroidism who presented to the ER with complaints of shortness of breath. In the ER she underwent an extensive evaluation. Her initial vital signs are found within normal limits. Initial laboratory analysis showed an elevated white blood cell count 16.7, slight hyponatremia at 133, and elevated blood sugar at 195. She did not respond initial breathing treatments and steroid injection in the ER she was therefore admitted. Pulmonary was c onsulted and the patient was maintained on bronchodilators, steroids, and empiric antibiotics. She was slow to improve. She developed significant thrush and Diflucan was ordered as well as swish and swallow. She developed urinary retention overnight on 06/03 and a Henry catheter was placed. She was seen by urology who recommended voiding trial in the next 1-2 days, passed voiding trail on the morning of 06/05. Her breathing and cough were much improved, she was able to ambulate with oxygen. Her room air pulse ox without oxygen was 87%. She was determined stable for discharge home with home O2. She will follow-up with her PCP Dr. cardenas and Dr. Simpson in 2 week. She will complete a course of 5 days of antibiotics and 5 days of increased oral steroid dosing, once this is complete she will resume her chronic steroids. She did develop severe thrush and will complete 10 dasy of diflucan (did nto respond to swish and swallow). She will continue flomax for 14 days and can then stop. She will have [facility] home care. She will also follow up with Dr. Silva regarding her severe mitral regurg that was found on echo during her hospitalization. Patient seen and examined at bedside. Breathing and cough are better. Feeling still weak but much better. Excited to go home. Vital signs reviewed and stable. General: [non toxic], no distress, appears at stated age Derm: warm, dry Head: atraumatic, normocephalic, symmetric Eyes: EOMI, no lid lag, anicteric sclera Mouth: no lip lesion, mucus membranes moist, + thrush Cardiovascular: S1S2 reg, no murmur, positive posterior tibial pulse bilateral, Lungs: faint wheeze bilateral, no rhonchi, no rales , no accessory muscle use Abdominal: soft, nontender to palpation, no guarding, no appreciable organomegaly Ext: no gross muscle atrophy, no edema, no contractures Neuro: CN II-XI grossly intact, no focal neuro deficits Psych: Alert, oriented, appropriate affect A total of 35 minutes of time were spent preparing this complex discharge summary . Pertinent Studies: Echocardiogram-ejection fraction 55-60%, moderate LVH, moderate pulmonary hypertension, right consider nuclear systolic pressure 57.7 consistent with moderate pulmonary hypertension, severe mitral regurgitation Patient Condition at Discharge: Serious Plan - Discharge Summary Discharge Rx Participant: No New Discharge Prescriptions: New Amoxic-Pot Clav 875-125Mg [Augmentin 875-125] 1 each PO Q12HR #3 tab Fluconazole [Diflucan] 100 mg PO DAILY #9 tab Tamsulosin [Flomax] 0.4 mg PO PC-BRKFST #14 cap.er.24h Fluticasone Nasal [place] [Flonase Nasal [place]] 2 spray EA NOSTRIL DAILY #1 bottle guaiFENesin [Mucinex] 1,200 mg PO Q12HR tablet.er predniSONE 60 mg PO DAILY #15 tab Continue Simvastatin [Zocor] 20 mg PO DAILY Morphine Sulfate ER [Ms Contin] 60 mg PO TID Rivaroxaban [Xarelto] 20 mg PO DAILY Fluticasone/Vilanterol [Breo Ellipta 200-25 Mcg INH] 1 puff INHALATION RT- DAILY Levothyroxine Sodium [Synthroid] 50 mcg PO DAILY DULoxetine HCL [Cymbalta] 60 mg PO DAILY oxyCODONE-APAP 10-325MG [Percocet 10-325 mg] 1 tab PO BID PRN PRN Reason: Pain Pregabalin [Lyrica] 150 mg PO BID Albuterol Inhaler [Ventolin Hfa Inhaler] 2 puff INHALATION RT-Q6H PRN PRN Reason: Shortness Of Breath Ipratropium-Albuterol Nebulize [Duoneb 0.5 mg-3 mg/3 ml Soln] 3 ml INHALATION RT-QID PRN PRN Reason: Shortness Of Breath Tiotropium 18 Mcg/Puff [Spiriva] 1 cap INHALATION RT-DAILY clonazePAM [KlonoPIN] 1 mg PO HS clonazePAM [KlonoPIN] 2 mg PO QAM Losartan [Cozaar] 25 mg PO DAILY Furosemide [Lasix] 40 mg PO DAILY Diltiazem HCl [Diltiazem 24Hr ER] 180 mg PO DAILY Discontinued predniSONE 10 mg PO DAILY Discharge Medication List Morphine Sulfate ER [Ms Contin] 60 mg PO TID 06/06/14 [History] Simvastatin [Zocor] 20 mg PO DAILY 06/06/14 [History] DULoxetine HCL [Cymbalta] 60 mg PO DAILY 07/22/17 [History] Fluticasone/Vilanterol [Breo Ellipta 200-25 Mcg INH] 1 puff INHALATION RT-DAILY 07/22/17 [History] Levothyroxine Sodium [Synthroid] 50 mcg PO DAILY 07/22/17 [History] Pregabalin [Lyrica] 150 mg PO BID 07/22/17 [History] Rivaroxaban [Xarelto] 20 mg PO DAILY 07/22/17 [History] oxyCODONE-APAP 10-325MG [Percocet 10-325 mg] 1 tab PO BID PRN 07/22/17 [History] Albuterol Inhaler [Ventolin Hfa Inhaler] 2 puff INHALATION RT-Q6H PRN 06/01/18 [History] Diltiazem HCl [Diltiazem 24Hr ER] 180 mg PO DAILY 06/01/18 [History] Furosemide [Lasix] 40 mg PO DAILY 06/01/18 [History] Ipratropium-Albuterol Nebulize [Duoneb 0.5 mg-3 mg/3 ml Soln] 3 ml INHALATION RT-QID PRN 06/01/18 [History] Losartan [Cozaar] 25 mg PO DAILY 06/01/18 [History] Tiotropium 18 Mcg/Puff [Spiriva] 1 cap INHALATION RT-DAILY 06/01/18 [History] clonazePAM [KlonoPIN] 1 mg PO HS 06/01/18 [History] clonazePAM [KlonoPIN] 2 mg PO QAM 06/01/18 [History] Amoxic-Pot Clav 875-125Mg [Augmentin 875-125] 1 each PO Q12HR #3 tab 06/05/18 [Rx] Fluconazole [Diflucan] 100 mg PO DAILY #9 tab 06/05/18 [Rx] Fluticasone Nasal [place] [Flonase Nasal [place]] 2 spray EA NOSTRIL DAILY #1 bottle 06/05/18 [Rx] Tamsulosin [Flomax] 0.4 mg PO PC-BRKFST #14 cap.er.24h 06/05/18 [Rx] guaiFENesin [Mucinex] 1,200 mg PO Q12HR tablet.er 06/05/18 [Rx] predniSONE 60 mg PO DAILY #15 tab 06/05/18 [Rx] Follow up Appointment(s)/Referral(s): Rik Morfin MD [STAFF PHYSICIAN] - 06/14/18 1:30 pm Bart Silva MD [STAFF PHYSICIAN] - 2 Weeks (Staff unable to reach office to make follow up appointment patient to please call upon discharge to set up a follow up appointment) Trevor Cardenas MD [Primary Care Provider] - 1-2 days (Office staff has been contacted and will be calling the patient upon discharge to set up a follow up appointment) [facility] [NON-STAFF] - As Needed (oxygen) [facility], [NON-STAFF] - As Needed Patient Instructions/Handouts: Using Oxygen at Home (DC), COPD (Chronic Obstructive Pulmonary Disease) (DC) Activity/Diet/Wound Care/Special Instructions: Regular diet Activity as tolerated Discharge Disposition: HOME SELF-CARE
== END 2018-06-05 14:50 | disposition home or self-care (01) | DRG 190 ==
LOC: EC 16:35 → INTOOBSV 18:56 → 4SSUR 18:56 → OBSVTOIN 06-02 15:01
PROVIDERS: ADMIT Family Medicine; ATTEND Family Medicine
DX: J44.0 Chronic obstructive pulmonary disease with (acute) lower respiratory infection (principal); J96.21 Acute and chronic respiratory failure with hypoxia; B37.0 Candidal stomatitis; I27.20 Pulmonary hypertension, unspecified; I08.1 Rheumatic disorders of both mitral and tricuspid valves; J44.1 Chronic obstructive pulmonary disease with (acute) exacerbation; J20.9 Acute bronchitis, unspecified; J01.90 Acute sinusitis, unspecified; I69.992 Facial weakness following unspecified cerebrovascular disease; R40.2142 Coma scale, eyes open, spontaneous, at arrival to emergency department; R40.2362 Coma scale, best motor response, obeys commands, at arrival to emergency department; R40.2252 Coma scale, best verbal response, oriented, at arrival to emergency department; E78.5 Hyperlipidemia, unspecified; G89.29 Other chronic pain; M48.061 Spinal stenosis, lumbar region without neurogenic claudication; I10 Essential (primary) hypertension; E03.9 Hypothyroidism, unspecified; F41.9 Anxiety disorder, unspecified; F32.9 Major depressive disorder, single episode, unspecified; M19.90 Unspecified osteoarthritis, unspecified site; R33.9 Retention of urine, unspecified; R91.8 Other nonspecific abnormal finding of lung field; F17.210 Nicotine dependence, cigarettes, uncomplicated; Z71.6 Tobacco abuse counseling; Z79.01 Long term (current) use of anticoagulants; Z79.890 Hormone replacement therapy; Z79.891 Long term (current) use of opiate analgesic; Z79.51 Long term (current) use of inhaled steroids; Z79.52 Long term (current) use of systemic steroids; Z79.899 Other long term (current) drug therapy; Z86.711 Personal history of pulmonary embolism; Z98.42 Cataract extraction status, left eye; Z98.41 Cataract extraction status, right eye; Z88.0 Allergy status to penicillin; Z88.1 Allergy status to other antibiotic agents; Z91.041 Radiographic dye allergy status; Z80.3 Family history of malignant neoplasm of breast
CPT/HCPCS: 36415; 80048; 80053; 81001; 82550; 83735; 83880; 84484; 85025; 85610; 85730; 87040; 93005; 93306; 94640; 94760; 96361; 96374; 99291

== ENCOUNTER 2018-12-30 19:48 | Emergency (ER) | payer BC ==
[2018-12-30 19:55] VITALS: TEMP 98.3
[2018-12-30] MEDS ORDERED: IPRATROPIUM-ALBUTEROL 3 ML NEB INHALATION STA (20:08)
[2018-12-30] MEDS ORDERED: ALBUTEROL NEBULIZED 2.5 MG/3 ML INHALATION STA (20:09)
[2018-12-30] MEDS ORDERED: methylPREDNISolone SOD SUCCI 125 MG/2 ML VIAL IV STA (20:38)
--- NOTE | 2018-12-30 20:45 | ED ---
General Adult HPI - General Chief complaint: Upper Respiratory Infection Stated complaint: JACKIE Time Seen by Provider: 12/30/18 20:19 Source: patient, family, RN notes reviewed, old records reviewed Mode of arrival: wheelchair Limitations: physical limitation - History of Present Illness Initial comments: Chief complaint history of present illness this is a 63-year-old female with COPD. She's had a productive cough getting worse for several days. Patient was in hospital several days ago for the same problem. Patient denying any chest pain. States she did have some chills and shakes at home but denies fever at home. Nausea but no vomiting. She has chronic low back pain. She states she has a large amount of dried phlegm she can't bring up. - Related Data Home Medications Medication Instructions Recorded Confirmed Morphine Sulfate ER [Ms Contin] 60 mg PO Q8H 06/06/14 12/30/18 Simvastatin [Zocor] 20 mg PO DAILY 06/06/14 12/30/18 DULoxetine HCL [Cymbalta] 60 mg PO DAILY 07/22/17 12/30/18 Fluticasone/Vilanterol [Breo 1 puff INHALATION RT-DAILY 07/22/17 12/30/18 Ellipta 200-25 Mcg INH] Levothyroxine Sodium [Synthroid] 50 mcg PO DAILY 07/22/17 12/30/18 Pregabalin [Lyrica] 150 mg PO BID 07/22/17 12/30/18 Rivaroxaban [Xarelto] 20 mg PO DAILY 07/22/17 12/30/18 oxyCODONE-APAP 10-325MG [Percocet 1 tab PO BID PRN 07/22/17 12/30/18 10-325 mg] Albuterol Inhaler [Ventolin Hfa 2 puff INHALATION RT-Q6H PRN 06/01/18 12/30/18 Inhaler] Diltiazem HCl [Diltiazem 24Hr ER 180 mg PO DAILY 06/01/18 12/30/18 (CD)] Furosemide [Lasix] 40 mg PO DAILY 06/01/18 12/30/18 Ipratropium-Albuterol Nebulize 3 ml INHALATION RT-QID PRN 06/01/18 12/30/18 [Duoneb 0.5 mg-3 mg/3 ml Soln] clonazePAM [KlonoPIN] 1 mg PO HS 06/01/18 12/30/18 clonazePAM [KlonoPIN] 2 mg PO QAM 06/01/18 12/30/18 Furosemide [Lasix] 20 mg PO DAILY@1500 PRN 12/30/18 12/30/18 Levofloxacin [Levaquin] 500 mg PO DAILY 12/30/18 12/30/18 Montelukast [Singulair] 10 mg PO DAILY 12/30/18 12/30/18 Nystatin 100,000Unit/gm Cream 1 applic TOPICAL BID 12/30/18 12/30/18 [Mycostatin Cream] Polyethylene Glycol 3350 [Miralax] 17 gm PO DAILY 12/30/18 12/30/18 Spironolactone [Aldactone] 25 mg PO DAILY 12/30/18 12/30/18 Tamsulosin [Flomax] 0.4 mg PO DAILY 12/30/18 12/30/18 Tiotropium [place] [Spiriva 2 puff INHALATION RT-DAILY 12/30/18 12/30/18 Respimat] Allergies Allergy/AdvReac Type Severity Reaction Status Date / Time amoxicillin trihydrate Allergy Rash/Hives Verified 12/30/18 21:14 [From Augmentin] cefaclor [From Ceclor] Allergy Rash/Hives Verified 12/30/18 21:14 Iodinated Contrast Media Allergy Throat Verified 12/30/18 21:14 [Iodinated Contrast Media - Swelling IV Dye] Penicillins Allergy Rash/Hives Verified 12/30/18 21:14 potassium clavulanate Allergy Rash/Hives Verified 12/30/18 21:14 [From Augmentin] Review of Systems ROS Statement: Those systems with pertinent positive or pertinent negative responses have been documented in the HPI. Review of systems. No headache or visual acuity changes she does have shortness of breath with what appears to be acute exacerbation of COPD. Productive sounding cough. Chest wall pain from frequent coughing. No known no vomiting she is nauseated. No abdominal pain. Chronic low back pain. She has bilateral mild pitting edema. She has a recurrence of bruising i.e. ecchymotic features to the dorsum of her left foot and second third toes. She reports this has happened 3 or 4 times in the past. Past medical problems significant for COPD, TIA, hyperlipidemia, hypertension, pulmonary embolism 4 she continues on Xarelto for the past 2 years. Hypothyroidism she had the CVA which resulted in left-sided eye droop. Nilesh william's past surgeries include back surgery D&Cs, bilateral cataracts. Patient's ALLERGIES include amoxicillin, cefaclor, IV contrast, potassium clavulanate. The patient continues to smoke, in fact she had [address] in [facility]. States she can't manage to stop, she wants to try. No alcohol use ROS Other: All systems not noted in ROS Statement are negative. Past Medical History Past Medical History: COPD, CVA/TIA, Hyperlipidemia, Hypertension, Memory Impairment, Pulmonary Embolus (PE), Thyroid Disorder Additional Past Medical History / Comment(s): CVA WITH LEFT SIDED EYE DROOP, N UMBNESS ALAN FINGERS, LEFT LEG SWELLING, DDD, SPINAL STENOSIS, severe mitral and moderate tricuspid valve regurgitation History of Any Multi-Drug Resistant Organisms: None Reported Past Surgical History: Back Surgery Additional Past Surgical History / Comment(s): d&c's, ALAN CATARACT SX Past Anesthesia/Blood Transfusion Reactions: No Reported Reaction Additional Past Anesthesia/Blood Transfusion Reaction / Comment(s): "anesthesia took more than usual, I didn't go under" Past Psychological History: Anxiety Smoking Status: Former smoker Past Alcohol Use History: None Reported Past Drug Use History: None Reported - Past Family History Sister(s) Family Medical History: Cancer Additional Family Medical History / Comment(s): breast General Exam - General Exam Comments Initial Comments: General: The patient is awake and alert, in respiratory distress secondary to exacerbation of COPD, productive sounding cough. Wheezing. Vital signs temp 98.3 pulse 117 respiratory rate 24 pulse ox 93% 3.5 L and blood pressure 139/69 Eye: Pupils are equal, round and reactive to light, extra-ocular movements are intact; there is normal conjunctiva bilaterally. No signs of icterus. Ears, nose, mouth and throat: There are moist mucous membranes and no oral lesions. Neck: The neck is supple, there is no tenderness, no lymphadenopathy, no bruit. Cardiovascular: There is a regular rate and rhythm. No murmur, rub or gallop is appreciated. History of a leaking valve but no murmur appreciated this time. Respiratory: Decreased air entry in all lung russell, significant expiratory wheezing.. Gastrointestinal: Soft, non-distended, non-tender abdomen without masses or organomegaly noted. There is no rebound or guarding present. No CVA tenderness. Bowel sounds are unremarkable. Back: There is no tenderness to palpation in the midline. There is no obvious deformity. No rashes noted. Musculoskeletal: Pitting edema both lower extremity slightly worse on the left than the right. Patient does have ecchymosis to the dorsal surface of the left foot and several toes. She reports this is happened 2 or 3 times in the past. Her secondary to mild superficial trauma. Full range of motion. Neurological: No complaints of or any evidence of any neuro deficits. Skin: Acute and chronic ecchymotic areas on the upper or lower extremities. Patient's on Xarelto. Psychiatric: Cooperative, appropriate mood & affect,. Limitations: physical limitation Course Vital Signs 12/30/18 12/30/18 12/30/18 19:52 20:21 20:31 Temperature 98.3 F Pulse Rate 117 H 117 H 117 H Respiratory 24 Rate Blood Pressure 139/69 O2 Sat by Pulse 93 L Oximetry 12/30/18 21:16 Temperature Pulse Rate Respiratory 20 Rate Blood Pressure O2 Sat by Pulse Oximetry EKG Findings - EKG Comments: EKG Findings:: QRS 88 QT was 322 QTc 452. This is similar to the first EKG. Sharifa Hudson EKG was done and reviewed at 2123 showing sinus tachycardia rate 122. Occasional PVCs. Possible left atrial enlargement. PA interval was at 124 QRS 68 QT [address] Hduson Medical Decision Making - Medical Decision Making Decision making; this is a 63-year-old female with acute exacerbation of COPD. sHe's not been able to improve her breathing status at home with multiple albuterol updrafts. Denies fever but she did say she has the shakes and chills. Afebrile here. The patient has had a productive sounding cough, reports only bringing up once per day. The patient's pulse ox is 93% on 3.5 L. Chest x-ray was done reviewed by radiologist his impression is; mild scarring and subsegmental atelectasis on the right lung base , unchanged, no evidence of any CHF. As read by Dr. Curtis. Abdomen white count of 7 hemoglobin 12 medical 37. INR 1.0. The patient's potassium is 3.2 with a BUN 8 creatinine 0.51 and GFR greater than 90. Glucose 104. Plasma lactic acid normal at 0.9. The case discussed and presented to Dr. Senior. Patient be admitted to his service with consultation from Dr. bustamante - Lab Data Result diagrams: 12/30/18 21:13 12/30/18 21:13 Lab Results 12/30/18 12/30/18 12/30/18 Range/Units 21:13 21:13 21:13 WBC 7.0 (3.8-10.6) k/uL RBC 4.49 (3.80-5.40) m/uL Hgb 12.3 (11.4-16.0) gm/dL Hct 37.9 (34.0-46.0) % MCV 84.4 (80.0-100.0) fL MCH 27.5 (25.0-35.0) pg MCHC 32.5 (31.0-37.0) g/dL RDW 17.4 H (11.5-15.5) % Plt Count 163 (150-450) k/uL Neutrophils % 76 % Lymphocytes % 13 % Monocytes % 7 % Eosinophils % 1 % Basophils % 1 % Neutrophils # 5.3 (1.3-7.7) k/uL Lymphocytes # 0.9 L (1.0-4.8) k/uL Monocytes # 0.5 (0-1.0) k/uL Eosinophils # 0.0 (0-0.7) k/uL Basophils # 0.1 (0-0.2) k/uL Anisocytosis Slight PT (9.0-12.0) sec INR (<1.2) APTT (22.0-30.0) sec Sodium 136 L (137-145) mmol/L Potassium 3.2 L (3.5-5.1) mmol/L Chloride 95 L (98-107) mmol/L Carbon Dioxide 35 H (22-30) mmol/L Anion Gap 6 mmol/L BUN 8 (7-17) mg/dL Creatinine 0.51 L (0.52-1.04) mg/dL Est GFR (CKD-EPI)AfAm >90 (>60 ml/min/1.73 sqM) Est GFR (CKD-EPI)NonAf >90 (>60 ml/min/1.73 sqM) Glucose 104 H (74-99) mg/dL Plasma Lactic Acid Shailesh (0.7-2.0) mmol/L Calcium 9.0 (8.4-10.2) mg/dL Magnesium 2.0 (1.6-2.3) mg/dL Total Bilirubin 0.6 (0.2-1.3) mg/dL AST 24 (14-36) U/L ALT 30 (9-52) U/L Alkaline Phosphatase 86 (38-126) U/L Troponin I (0.000-0.034) ng/mL NT-Pro-B Natriuret Pep 168 pg/mL Total Protein 5.7 L (6.3-8.2) g/dL Albumin 3.4 L (3.5-5.0) g/dL 12/30/18 12/30/18 12/30/18 Range/Units 21:13 21:13 21:13 WBC (3.8-10.6) k/uL RBC (3.80-5.40) m/uL Hgb (11.4-16.0) gm/dL Hct (34.0-46.0) % MCV (80.0-100.0) fL MCH (25.0-35.0) pg MCHC (31.0-37.0) g/dL RDW (11.5-15.5) % Plt Count (150-450) k/uL Neutrophils % % Lymphocytes % % Monocytes % % Eosinophils % % Basophils % % Neutrophils # (1.3-7.7) k/uL Lymphocytes # (1.0-4.8) k/uL Monocytes # (0-1.0) k/uL Eosinophils # (0-0.7) k/uL Basophils # (0-0.2) k/uL Anisocytosis PT 10.6 (9.0-12.0) sec INR 1.0 (<1.2) APTT 23.2 (22.0-30.0) sec Sodium (137-145) mmol/L Potassium (3.5-5.1) mmol/L Chloride (98-107) mmol/L Carbon Dioxide (22-30) mmol/L Anion Gap mmol/L BUN (7-17) mg/dL Creatinine (0.52-1.04) mg/dL Est GFR (CKD-EPI)AfAm (>60 ml/min/1.73 sqM) Est GFR (CKD-EPI)NonAf (>60 ml/min/1.73 sqM) Glucose (74-99) mg/dL Plasma Lactic Acid Shailesh 0.9 (0.7-2.0) mmol/L Calcium (8.4-10.2) mg/dL Magnesium (1.6-2.3) mg/dL Total Bilirubin (0.2-1.3) mg/dL AST (14-36) U/L ALT (9-52) U/L Alkaline Phosphatase (38-126) U/L Troponin I <0.012 (0.000-0.034) ng/mL NT-Pro-B Natriuret Pep pg/mL Total Protein (6.3-8.2) g/dL Albumin (3.5-5.0) g/dL Disposition Clinical Impression: Acute exacerbation of chronic obstructive pulmonary disease (COPD) Disposition: ADMITTED IP TO THIS HOSP Condition: Serious Is patient prescribed a controlled substance at d/c from ED?: No Referrals: Trevor Hamilton MD [Primary Care Provider] - 1-2 days
--- NOTE | 2018-12-30 21:03 | XR ---
EXAMINATION TYPE: XR chest 2V DATE OF EXAM: 12/30/2018 COMPARISON: 11/24/2018 HISTORY: Cough TECHNIQUE: Frontal and lateral views of the chest are obtained. FINDINGS: There is some mild linear density at the lung bases. There is no heart failure. Heart size is normal. There are no hilar masses. There are chest leads. Bony thorax shows some osteoporotic typ e mild compression fractures. IMPRESSION: Mild scarring and subsegmental atelectasis at the lung bases unchanged. There are some thoracic compression fractures that have progressed compared to old exam of 08/05/2017. No heart failure.
[2018-12-30 21:17] VITALS: RESP 20
[2018-12-30 21:36] LABS: Anisocytosis Slight; Basophils # (A) 0.1 k/uL (0-0.2); Basophils % (A) 1 %; Eosinophils % (A) 1 %; HCT 37.9 % (34.0-46.0); HGB 12.3 gm/dL (11.4-16.0); Lymphocytes # (A) 0.9 k/uL (1.0-4.8); Lymphocytes % (A) 13 %; MCH 27.5 pg (25.0-35.0); MCHC 32.5 g/dL (31.0-37.0); MCV 84.4 fL (80.0-100.0); Mean Platelet Volume 6.2; Monocytes # (A) 0.5 k/uL (0-1.0); Monocytes % (A) 7 %; Neutrophils # (A) 5.3 k/uL (1.3-7.7); Neutrophils % (A) 76 %; Platelet Count 163 k/uL (150-450); RBC 4.49 m/uL (3.80-5.40); RDW 17.4 % (11.5-15.5)
[2018-12-30 21:40] LABS: ALT 30 U/L (9-52); AST 24 U/L (14-36); African American GFR (CKD) >90 (>60 ml/min/1.73 sqM); Albumin 3.4 g/dL (3.5-5.0); Alkaline Phosphatase 86 U/L (38-126); Anion Gap 6 mmol/L; Blood Urea Nitrogen 8 mg/dL (7-17); Carbon Dioxide 35 mmol/L (22-30); Chloride 95 mmol/L (98-107); Glucose 104 mg/dL (74-99); Non-African American GFR(CKD) >90 (>60 ml/min/1.73 sqM); Partial Thromboplastin Time 23.2 sec (22.0-30.0); Potassium 3.2 mmol/L (3.5-5.1); Prothrombin Time 10.6 sec (9.0-12.0); Sodium 136 mmol/L (137-145); Total Bilirubin 0.6 mg/dL (0.2-1.3); Total Protein 5.7 g/dL (6.3-8.2)
[2018-12-30] MEDS ORDERED: LEVOFLOXACIN 500MG-D5W PMX 500 MG in DEXTROSE/WATER 1 100ML.BAG IVPB STA (22:05)
[2018-12-30] MEDS ORDERED: NALOXONE 0.4 MG/ML 1 ML VIAL IV PRN (22:10)
[2018-12-30] MEDS ORDERED: SODIUM CHLORIDE 0.9% 1,000 ML IV SCH (22:15)
[2018-12-30] MEDS ORDERED: methylPREDNISolone SOD SUCCI 125 MG/2 ML VIAL IV SCH (22:15)
[2018-12-30] MEDS ORDERED: ALBUTEROL NEBULIZED 2.5 MG/3 ML INHALATION SCH (22:30)
[2018-12-30] MEDS ORDERED: ALBUTEROL NEBULIZED 2.5 MG/3 ML INHALATION PRN (22:44)
[2018-12-30] MEDS ORDERED: oxyCODONE-APAP 10-325MG 1 EACH TAB PO PRN (23:00)
[2018-12-30] MEDS ORDERED: MORPHINE SULFATE ER 60 MG TABLET PO SCH (23:00)
[2018-12-30 23:01] VITALS: BP 146/80; PULSE 112
[2018-12-31] MEDS ORDERED: ACETAMINOPHEN TAB 325 MG TAB PO PRN
[2018-12-31] MEDS ORDERED: LEVOTHYROXINE 50 MCG TAB PO SCH (06:30)
[2018-12-31] MEDS ORDERED: VILANTEROL INHALATION SCH (08:00)
[2018-12-31] MEDS ORDERED: FLUTICASONE INHALATION SCH (08:00)
[2018-12-31] MEDS ORDERED: TIOTROPIUM BROMIDE INHALATION SCH (08:00)
[2018-12-31] MEDS ORDERED: ALBUTEROL NEBULIZED 2.5 MG/3 ML INHALATION SCH (08:00)
[2018-12-31] MEDS ORDERED: LEVOFLOXACIN 500MG-D5W PMX 500 MG in DEXTROSE/WATER 1 100ML.BAG IVPB SCH (09:00)
[2018-12-31] MEDS ORDERED: PREGABALIN 150 MG PO SCH (09:00)
[2018-12-31] MEDS ORDERED: DULoxetine HCL 30 MG CAPSULE.DR PO SCH (09:00)
[2018-12-31] MEDS ORDERED: NYSTATIN 100,000UNIT/GM CREAM 30 GM TUBE TOPICAL SCH (09:00)
[2018-12-31] MEDS ORDERED: TAMSULOSIN 0.4 MG CAP.ER.24H PO SCH (09:00)
[2018-12-31] MEDS ORDERED: FUROSEMIDE 40 MG TAB PO SCH (09:00)
[2018-12-31] MEDS ORDERED: POLYETHYLENE GLYCOL 3350 17 GM POWD.PACK PO SCH (09:00)
[2018-12-31] MEDS ORDERED: SPIRONOLACTONE 25 MG TAB PO SCH (09:00)
[2018-12-31] MEDS ORDERED: ATORVASTATIN 10 MG TAB PO SCH (09:00)
[2018-12-31] MEDS ORDERED: clonazePAM 1 MG TAB PO SCH ×2 (09:00→21:00)
[2018-12-31] MEDS ORDERED: RIVAROXABAN 20 MG TAB PO SCH (09:00)
[2018-12-31] MEDS ORDERED: MONTELUKAST 10 MG TAB PO SCH (09:00)
[2018-12-31] MEDS ORDERED: FUROSEMIDE 20 MG TAB PO PRN (15:00)
== END 2018-12-30 23:10 | disposition other institution (70) ==
LOC: EC 19:48 → UNDOADMIN 22:16 → 3SCARD 22:16 → EC 23:10
DX: J44.1 Chronic obstructive pulmonary disease with (acute) exacerbation (principal); J98.11 Atelectasis; R91.8 Other nonspecific abnormal finding of lung field; E78.5 Hyperlipidemia, unspecified; I10 Essential (primary) hypertension; E07.9 Disorder of thyroid, unspecified; I08.1 Rheumatic disorders of both mitral and tricuspid valves; F41.9 Anxiety disorder, unspecified; Z79.891 Long term (current) use of opiate analgesic; Z79.01 Long term (current) use of anticoagulants; Z79.890 Hormone replacement therapy; Z79.899 Other long term (current) drug therapy; Z87.891 Personal history of nicotine dependence; Z86.711 Personal history of pulmonary embolism; Z86.73 Personal history of transient ischemic attack (TIA), and cerebral infarction without residual deficits; Z88.0 Allergy status to penicillin; Z88.8 Allergy status to other drugs, medicaments and biological substances; Z91.041 Radiographic dye allergy status
CPT/HCPCS: 36415; 94640; 93005; 83880; 80053; 83605; 83735; 84484; 85025; 85610; 85730; 87040; 71046; 99285; 96374; J2930

== ENCOUNTER 2019-01-01 20:53 | Inpatient (IN) | payer BC ==
[2019-01-01] MEDS ORDERED: SODIUM CHLORIDE 0.9% 1,000 ML IV STA (21:38)
[2019-01-01] MEDS ORDERED: IPRATROPIUM-ALBUTEROL 3 ML NEB INHALATION STA ×2 (21:38→23:31)
[2019-01-01] MEDS ORDERED: methylPREDNISolone SOD SUCCI 125 MG/2 ML VIAL IV STA (21:38)
[2019-01-01] MEDS ORDERED: SODIUM CHLORIDE 0.9% 500 ML 500 ML IV STA (21:38)
[2019-01-01] MEDS ORDERED: ASPIRIN 81 MG PO STA (21:41)
[2019-01-01] MEDS ORDERED: DILTIAZEM 125 MG in SODIUM CHLORIDE 0.9% 100 ML IV SCH (22:00)
--- NOTE | 2019-01-01 22:00 | XR ---
EXAMINATION TYPE: XR chest 1V portable DATE OF EXAM: 01/01/2019 COMPARISON: 12/30/2018 INDICATION: Short of breath TECHNIQUE: Single frontal view of the chest is obtained. FINDINGS: The heart size is normal. The pulmonary vasculature is normal. Left basilar plate atelectasis. Lungs otherwise appear clear IMPRESSION: 1. Mild persistent plate atelectasis left lung base.
[2019-01-01 22:29] LABS: Anisocytosis Slight; Basophils # (A) 0.1 k/uL (0-0.2); Basophils % (A) 1 %; Eosinophils % (A) 0 %; HCT 38.3 % (34.0-46.0); HGB 11.9 gm/dL (11.4-16.0); Lymphocytes # (A) 0.9 k/uL (1.0-4.8); Lymphocytes % (A) 8 %; MCH 26.7 pg (25.0-35.0); MCHC 31.2 g/dL (31.0-37.0); MCV 85.6 fL (80.0-100.0); Mean Platelet Volume 6.8; Monocytes # (A) 0.9 k/uL (0-1.0); Monocytes % (A) 8 %; Neutrophils # (A) 8.9 k/uL (1.3-7.7); Neutrophils % (A) 81 %; Platelet Count 181 k/uL (150-450); RBC 4.47 m/uL (3.80-5.40); RDW 17.6 % (11.5-15.5); WBC 11.1 k/uL (3.8-10.6)
[2019-01-01] MEDS ORDERED: IPRATROPIUM 0.5 MG/2.5 ML NEBU INHALATION STA (22:33)
[2019-01-01 22:36] LABS: INR 1.2 (<1.2); Partial Thromboplastin Time 26.1 sec (22.0-30.0); Prothrombin Time 12.1 sec (9.0-12.0)
[2019-01-01 22:39] LABS: ALT 29 U/L (9-52); AST 30 U/L (14-36); African American GFR (CKD) >90 (>60 ml/min/1.73 sqM); Albumin 3.7 g/dL (3.5-5.0); Alkaline Phosphatase 82 U/L (38-126); Anion Gap 6 mmol/L; Blood Urea Nitrogen 12 mg/dL (7-17); Calcium 9.1 mg/dL (8.4-10.2); Carbon Dioxide 37 mmol/L (22-30); Chloride 93 mmol/L (98-107); Glucose 115 mg/dL (74-99); Magnesium 1.7 mg/dL (1.6-2.3); Potassium 3.8 mmol/L (3.5-5.1); Sodium 136 mmol/L (137-145); Total Bilirubin 0.3 mg/dL (0.2-1.3); Total Protein 6.2 g/dL (6.3-8.2)
--- NOTE | 2019-01-01 23:42 | ED ---
SOB HPI - General Chief Complaint: Shortness of Breath Stated Complaint: SOB Time Seen by Provider: 01/01/19 21:27 Source: patient Mode of arrival: ambulatory Limitations: no limitations - History of Present Illness Initial Comments: This 63-year-old white female presents with a complaint of shortness of breath. This is a chronic problem for her. She has oxygen dependent COPD. She states that it has been worse today since this morning. She denies any palpitations but does present with atrial fibrillation with rapid ventricular response. She does relate that she has had atrial fibrillation in the past as well. She was just seen in the emergency department 2 days ago and was admitted to the hospital but left AGAINST MEDICAL ADVICE prior to going to the floor. She states that she has had a cough with a greenish production for the last several days. She is currently taking doxycycline without any significant relief. She was on steroids this past week as well. She utilizes home oxygen regularly and also takes prednisone 10 mg daily. She initially denies any chest pain but states that she has had a slight amount of right-sided sharp chest pain while in the emergency department. She denies any fevers or chills. The shortness of b reath is much worse with exertion. She does relate a degree of anxiety with the breathing problems. She denies any other complaints or modifying factors. - Related Data Home Medications Medication Instructions Recorded Confirmed Morphine Sulfate ER [Ms Contin] 60 mg PO Q8H 06/06/14 01/01/19 Simvastatin [Zocor] 20 mg PO DAILY 06/06/14 01/01/19 DULoxetine HCL [Cymbalta] 60 mg PO DAILY 07/22/17 01/01/19 Fluticasone/Vilanterol [Breo 1 puff INHALATION RT-DAILY 07/22/17 01/01/19 Ellipta 200-25 Mcg INH] Levothyroxine Sodium [Synthroid] 50 mcg PO DAILY 07/22/17 01/01/19 Pregabalin [Lyrica] 150 mg PO BID 07/22/17 01/01/19 Rivaroxaban [Xarelto] 20 mg PO DAILY 07/22/17 01/01/19 oxyCODONE-APAP 10-325MG [Percocet 1 tab PO BID PRN 07/22/17 01/01/19 10-325 mg] Albuterol Inhaler [Ventolin Hfa 2 puff INHALATION RT-Q6H PRN 06/01/18 01/01/19 Inhaler] Diltiazem HCl [Diltiazem 24Hr ER 180 mg PO DAILY 06/01/18 01/01/19 (CD)] Furosemide [Lasix] 40 mg PO DAILY 06/01/18 01/01/19 Ipratropium-Albuterol Nebulize 3 ml INHALATION RT-QID PRN 06/01/18 01/01/19 [Duoneb 0.5 mg-3 mg/3 ml Soln] clonazePAM [KlonoPIN] 1 mg PO HS 06/01/18 01/01/19 clonazePAM [KlonoPIN] 2 mg PO QAM 06/01/18 01/01/19 Furosemide [Lasix] 20 mg PO DAILY@1500 PRN 12/30/18 01/01/19 Montelukast [Singulair] 10 mg PO DAILY 12/30/18 01/01/19 Nystatin 100,000Unit/gm Cream 1 applic TOPICAL BID 12/30/18 01/01/19 [Mycostatin Cream] Polyethylene Glycol 3350 [Miralax] 17 gm PO DAILY 12/30/18 01/01/19 Spironolactone [Aldactone] 25 mg PO DAILY 12/30/18 01/01/19 Tamsulosin [Flomax] 0.4 mg PO DAILY 12/30/18 01/01/19 Tiotropium [place] [Spiriva 2 puff INHALATION RT-DAILY 12/30/18 01/01/19 Respimat] Doxycycline Hyclate [Vibramycin] 100 mg PO ONCE 01/01/19 01/01/19 predniSONE 40 mg PO DAILY 01/01/19 01/01/19 Allergies Allergy/AdvReac Type Severity Reaction Status Date / Time amoxicillin trihydrate Allergy Rash/Hives Verified 01/01/19 21:38 [From Augmentin] cefaclor [From Ceclor] Allergy Rash/Hives Verified 01/01/19 21:38 Iodinated Contrast Media Allergy Throat Verified 01/01/19 21:38 [Iodinated Contrast Media - Swelling IV Dye] Penicillins Allergy Rash/Hives Verified 01/01/19 21:38 potassium clavulanate Allergy Rash/Hives Verified 01/01/19 21:38 [From Augmentin] Review of Systems ROS Statement: Those systems with pertinent positive or pertinent negative responses have been documented in the HPI. ROS Other: All systems not noted in ROS Statement are negative. Past Medical History Past Medical History: COPD, CVA/TIA, Hyperlipidemia, Hypertension, Memory Impairment, Pulmonary Embolus (PE), Thyroid Disorder Additional Past Medical History / Comment(s): CVA WITH LEFT SIDED EYE DROOP, NUMBNESS ALAN FINGERS, LEFT LEG SWELLING, DDD, SPINAL STENOSIS, severe mitral and moderate tricuspid valve regurgitation History of Any Multi-Drug Resistant Organisms: None Reported Past Surgical History: Back Surgery Additional Past Surgical History / Comment(s): d&c's, ALAN CATARACT SX Past Anesthesia/Blood Transfusion Reactions: No Reported Reaction Additional Past Anesthesia/Blood Transfusion Reaction / Comment(s): "anesthesia took more than usual, I didn't go under" Past Psychological History: Anxiety Smoking Status: Former smoker Past Alcohol Use History: None Reported Past Drug Use History: None Reported - Past Family History Sister(s) Family Medical History: Cancer Additional Family Medical History / Comment(s): breast General Exam - General Exam Comments Initial Comments: GENERAL: The patient is well nourished and well hydrated. VITAL SIGNS: Heart rate, blood pressure, respiratory rate reviewed as recorded in nurse's notes. EYES: Pupils are round and reactive. Extraocular movements are intact. No conjunctival / lid redness or swelling. ENT: No external evidence of injury, swelling, or ecchymosis. Airway is patent. Throat is clear. NECK: Nontender. No swelling or evidence of injury. No subcutaneous emphysema. Trachea is midline. No thyroid mass. HEART: There is a tachycardic irregular heart rate. Good peripheral pulses. LUNGS/CHEST: Wheezing noted to bilateral chest. Patient is tachypneic. No ecchymosis, subcutaneous emphysema, or tenderness. ABDOMEN: Abdomen soft without tenderness. No palpable masses or organomegaly. No peritoneal signs. No abdominal wall swelling or ecchymosis. EXTREMITIES: No extremity tenderness. Normal muscle tone and function. No thoracolumbar tenderness. NEUROLOGIC: Sensation is grossly intact. Cranial nerve exam reveals face is symmetrical, tongue is midline, speech is clear. SKIN: No abrasions or ecchymosis is noted. No induration or masses noted. PSYCHIATRIC: Alert and oriented. Appropriate behavior and judgment but she does appear to be anxious. Limitations: no limitations Course Vital Signs 01/01/19 01/01/19 01/01/19 20:57 22:35 22:42 Temperature 98 F Pulse Rate 69 113 H 113 H Respiratory 20 22 22 Rate Blood Pressure 106/63 O2 Sat by Pulse 94 L Oximetry Medical Decision Making - Medical Decision Making The patient was seen and examined. All diagnostics were reviewed. The EKG shows atrial fibrillation with rapid ventricular response with a heart rate of 156. Is no acute ST-T wave changes identified. The QRS duration is 80 and the QTC intervals 438. The patient was placed on the quality assurance monitor final and this does show a heart rate that is similar. She shows a blood pressure of approximately 74 systolic initially. She is given some mild fluid hydration. She started on a Cardizem drip and this is titrated from 5-15 mg per hour. Her heart rate does come down but is still tachycardic. She also has an increase in her blood pressure with the fluids. The chest x-ray was done and does show a degree of atelectasis. There is no infiltrate or pneumonia. The laboratory shows a slight leukocytosis which is likely due to her steroids. The BNP is slightly elevated. The chloride is low. She initially received an Atrovent reading treatment as she does still have significant wheezing and is felt as though she does have COPD exacerbation. She likely also could have a bronchitis especially in light of her greenish sputum production and will be placed on IV antibiotics. She is still wheezing on recheck. An additional DuoNeb treatment is ordered. The albuterol portion was withheld initially due to her tachycardic heart rate is felt as though she does require additional breathing treatments. It is felt as though she would require admission to the hospital with pulmonology and cardiology to consult. Approximately 40 minutes of critical care time is utilized and the treatment of the patient. - Lab Data Result diagrams: 01/01/19 22:05 01/01/19 22:05 Lab Results 01/01/19 01/01/19 01/01/19 Range/Units 22:05 22:05 22:05 WBC 11.1 H (3.8-10.6) k/uL RBC 4.47 (3.80-5.40) m/uL Hgb 11.9 (11.4-16.0) gm/dL Hct 38.3 (34.0-46.0) % MCV 85.6 (80.0-100.0) fL MCH 26.7 (25.0-35.0) pg MCHC 31.2 (31.0-37.0) g/dL RDW 17.6 H (11.5-15.5) % Plt Count 181 (150-450) k/uL Neutrophils % 81 % Lymphocytes % 8 % Monocytes % 8 % Eosinophils % 0 % Basophils % 1 % Neutrophils # 8.9 H (1.3-7.7) k/uL Lymphocytes # 0.9 L (1.0-4.8) k/uL Monocytes # 0.9 (0-1.0) k/uL Eosinophils # 0.0 (0-0.7) k/uL Basophils # 0.1 (0-0.2) k/uL Anisocytosis Slight PT (9.0-12.0) sec INR (<1.2) APTT (22.0-30.0) sec Sodium 136 L (137-145) mmol/L Potassium 3.8 (3.5-5.1) mmol/L Chloride 93 L (98-107) mmol/L Carbon Dioxide 37 H (22-30) mmol/L Anion Gap 6 mmol/L BUN 12 (7-17) mg/dL Creatinine 0.54 (0.52-1.04) mg/dL Est GFR (CKD-EPI)AfAm >90 (>60 ml/min/1.73 sqM) Est GFR (CKD-EPI)NonAf >90 (>60 ml/min/1.73 sqM) Glucose 115 H (74-99) mg/dL Calcium 9.1 (8.4-10.2) mg/dL Magnesium 1.7 (1.6-2.3) mg/dL Total Bilirubin 0.3 (0.2-1.3) mg/dL AST 30 (14-36) U/L ALT 29 (9-52) U/L Alkaline Phosphatase 82 (38-126) U/L Troponin I (0.000-0.034) ng/mL NT-Pro-B Natriuret Pep 611 pg/mL Total Protein 6.2 L (6.3-8.2) g/dL Albumin 3.7 (3.5-5.0) g/dL TSH 0.920 (0.465-4.680) mIU/L 01/01/19 01/01/19 Range/Units 22:05 22:05 WBC (3.8-10.6) k/uL RBC (3.80-5.40) m/uL Hgb (11.4-16.0) gm/dL Hct (34.0-46.0) % MCV (80.0-100.0) fL MCH (25.0-35.0) pg MCHC (31.0-37.0) g/dL RDW (11.5-15.5) % Plt Count (150-450) k/uL Neutrophils % % Lymphocytes % % Monocytes % % Eosinophils % % Basophils % % Neutrophils # (1.3-7.7) k/uL Lymphocytes # (1.0-4.8) k/uL Monocytes # (0-1.0) k/uL Eosinophils # (0-0.7) k/uL Basophils # (0-0.2) k/uL Anisocytosis PT 12.1 H (9.0-12.0) sec INR 1.2 H (<1.2) APTT 26.1 (22.0-30.0) sec Sodium (137-145) mmol/L Potassium (3.5-5.1) mmol/L Chloride (98-107) mmol/L Carbon Dioxide (22-30) mmol/L Anion Gap mmol/L BUN (7-17) mg/dL Creatinine (0.52-1.04) mg/dL Est GFR (CKD-EPI)AfAm (>60 ml/min/1.73 sqM) Est GFR (CKD-EPI)NonAf (>60 ml/min/1.73 sqM) Glucose (74-99) mg/dL Calcium (8.4-10.2) mg/dL Magnesium (1.6-2.3) mg/dL Total Bilirubin (0.2-1.3) mg/dL AST (14-36) U/L ALT (9-52) U/L Alkaline Phosphatase (38-126) U/L Troponin I <0.012 (0.000-0.034) ng/mL NT-Pro-B Natriuret Pep pg/mL Total Protein (6.3-8.2) g/dL Albumin (3.5-5.0) g/dL TSH (0.465-4.680) mIU/L Disposition Clinical Impression: Acute exacerbation of chronic obstructive airways disease, Bronchitis, Atrial fibrillation with rapid ventricular response, Leukocytosis, Hypoxia, Hypochloremia, Chest pain, Unstable angina, Anxiety Disposition: ADMITTED IP TO THIS HOSP Condition: Serious Is patient prescribed a controlled substance at d/c from ED?: No Referrals: Trevor Hamilton MD [Primary Care Provider] - 1-2 days Time of Disposition: 23:42 Decision Date: 01/01/19 Decision Time: 23:42
[2019-01-01] MEDS ORDERED: ALPRAZolam 0.25 MG TAB PO PRN (23:45)
[2019-01-01] MEDS ORDERED: NITROGLYCERIN SL TABS 0.4 MG TAB SUBLINGUAL PRN (23:45)
[2019-01-01] MEDS ORDERED: LORazepam 2 MG/ML INJ IV STA (23:45)
[2019-01-01] MEDS ORDERED: LEVOFLOXACIN 750MG-D5W PMX 750 MG in DEXTROSE/WATER 1 150ML.BAG IVPB STA (23:45)
[2019-01-01] MEDS ORDERED: ALBUTEROL NEBULIZED 1.25 MG/3 ML INHALATION PRN (23:52)
[2019-01-02] MEDS: IPRATROPIUM-ALBUTEROL 3 ML NEB INHALATION SCH ×8 (00:58→20:15)
[2019-01-02] MEDS: MORPHINE SULFATE ER 60 MG TABLET PO SCH ×3 (01:08→20:42)
[2019-01-02] MEDS ORDERED: ALBUTEROL NEBULIZED 2.5 MG/3 ML INHALATION PRN (01:19)
[2019-01-02] MEDS: NITROGLYCERIN OINT 1 INCH/GM PACKET TOPICAL SCH ×5 (01:39→23:39)
[2019-01-02 04:44] LABS: Cholesterol 133 mg/dL (<200); HDL Cholesterol 62 mg/dL (40-60); LDL Cholesterol,Calculated 57 mg/dL (0-99); Triglycerides 72 mg/dL (<150)
[2019-01-02] MEDS: LEVOTHYROXINE 50 MCG TAB PO SCH (06:10)
[2019-01-02] MEDS ORDERED: SYMBICORT 160-4.5 MCG INHALER INHALATION SCH (08:00)
[2019-01-02] MEDS ORDERED: IPRATROPIUM 0.5 MG/2.5 ML NEBU INHALATION SCH (08:00)
[2019-01-02] MEDS ORDERED: ATORVASTATIN 10 MG TAB PO SCH (09:00)
[2019-01-02] MEDS ORDERED: ASPIRIN 325 MG TAB PO SCH (09:00)
[2019-01-02] MEDS: RIVAROXABAN 20 MG TAB PO SCH (09:48)
[2019-01-02] MEDS: DILTIAZEM CD 240 MG CAP.ER.24H PO SCH (09:48)
[2019-01-02] MEDS: clonazePAM 1 MG TAB PO SCH ×2 (09:48→20:43)
[2019-01-02] MEDS: DULoxetine HCL 30 MG CAPSULE.DR PO SCH (09:48)
[2019-01-02] MEDS: TAMSULOSIN 0.4 MG CAP.ER.24H PO SCH (09:48)
[2019-01-02] MEDS: MONTELUKAST 10 MG TAB PO SCH (09:48)
[2019-01-02] MEDS: ATORVASTATIN 20 MG TAB PO SCH (09:48)
[2019-01-02] MEDS: oxyCODONE-APAP 10-325MG 1 EACH TAB PO PRN ×2 (09:49→18:59)
[2019-01-02] MEDS: SPIRONOLACTONE 25 MG TAB PO SCH (09:50)
[2019-01-02] MEDS: NYSTATIN 100,000UNIT/GM CREAM 30 GM TUBE TOPICAL SCH ×2 (09:52→20:43)
[2019-01-02] MEDS: POLYETHYLENE GLYCOL 3350 17 GM POWD.PACK PO SCH (09:52)
[2019-01-02] MEDS: methylPREDNISolone SOD SUCCI 125 MG/2 ML VIAL IV SCH ×2 (09:52→13:08)
[2019-01-02] MEDS: FUROSEMIDE 20 MG TAB PO SCH (11:18)
[2019-01-02] MEDS: PREGABALIN 50 MG CAP PO SCH ×2 (11:20→20:42)
--- NOTE | 2019-01-02 12:33 | P.CNPUL ---
History of Present Illness Consult date: 01/02/19 Requesting physician: Derek Jin Reason for consult: dyspnea, cough, COPD, hypoxemia Chief complaint: Shortness of breath, cough, wheezing History of present illness: This is a 63-year-old white female patient with past medical history of COPD, and patient is on home oxygen at 2 L, and maintenance dose prednisone, previous history of CVA/TIA, hypertension, hyperlipidemia, previous history of pulmonary embolism on Xarelto, hypothyroidism, anxiety, and former smoker, who was recently hospitalized at the [facility] and discharged home a week ago for acute exacerbation of COPD. Patient states she was treated with the IV steroids, nebulized treatments and doxycycline, she was discharged home a week ago, however she felt that she did not significantly improve, she was seen in the emergency room at [facility] on 12/30/2018 with complaints of productive cough, difficulty breathing, chills and shakes, patient at that time left AGAINST MEDICAL ADVICE. On 01/01/2019 18 came back for reevaluation with worsening dyspnea, cough, congestion, she states she just couldn't breathe, she is experiencing some chest tightness, she states she is bringing up some foul smelling and foul tasting green colored phlegm. Denied any chest pain, reports some subjective chills, she reports some swelling in her lower extremities, there is significant bruising to her left foot, and patient denies any recent trauma to it. He was found to be in A. fib RVR, she was placed on Cardizem drip, and she has currently converted to sinus rhythm, he was started on IV steroids, empiric antibiotics in the form of Levaquin, breathing treatments, she is on 5 L of O2, she states she at times feel like she is going to , and not leave the hospital. No fever, hemodynamically stable, lung sounds reveal diminished breath sounds with diffuse wheezes, patient does not appear to be in any acute distress. Chest x-ray was reviewed showing a mild persistent plate atelectasis at the left lung base. Review of Systems All systems: negative Constitutional: Denies chills, Denies fever Eyes: denies blurred vision, denies pain Ears, nose, mouth and throat: Denies headache, Denies sore throat Cardiovascular: Reports leg edema, Reports shortness of breath, Denies chest pain Respiratory: Reports congestion, Reports cough with sputum, Reports dyspnea, Reports home oxygen, Reports respiratory infections, Reports wheezing, Denies co ugh Gastrointestinal: Denies abdominal pain, Denies diarrhea, Denies nausea, Denies vomiting Genitourinary: Denies dysuria, Denies hematuria Musculoskeletal: Denies myalgias Musculoskeletal: bilateral: ankle swelling Integumentary: Reports unusual bruising, Denies pruritus, Denies rash Neurological: Denies numbness, Denies weakness Psychiatric: Denies anxiety, Denies depression Endocrine: Denies fatigue, Denies weight change Past Medical History Past Medical History: COPD, CVA/TIA, Hyperlipidemia, Hypertension, Memory Impairment, Pulmonary Embolus (PE), Thyroid Disorder Additional Past Medical History / Comment(s): CVA WITH LEFT SIDED EYE DROOP, NUMBNESS ALAN FINGERS, LEFT LEG SWELLING, DDD, SPINAL STENOSIS, severe mitral and moderate tricuspid valve regurgitation History of Any Multi-Drug Resistant Organisms: None Reported Past Surgical History: Back Surgery Additional Past Surgical History / Comment(s): d&c's, ALAN CATARACT SX Past Anesthesia/Blood Transfusion Reactions: No Reported Reaction Additional Past Anesthesia/Blood Transfusion Reaction / Comment(s): "anesthesia took more than usual, I didn't go under" Past Psychological History: Anxiety Smoking Status: Former smoker Past Alcohol Use History: None Reported Additional Past Alcohol Use History / Comment(s): smokes 10-15 cigarettes a day, from age 17 Past Drug Use History: None Reported - Past Family History Sister(s) Family Medical History: Cancer Additional Family Medical History / Comment(s): breast Medications and Allergies Home Medications Medication Instructions Recorded Confirmed Type Morphine Sulfate ER [Ms Contin] 60 mg PO Q8H 06/06/14 01/01/19 History Simvastatin [Zocor] 20 mg PO DAILY 06/06/14 01/01/19 History DULoxetine HCL [Cymbalta] 60 mg PO DAILY 07/22/17 01/01/19 History Fluticasone/Vilanterol [Breo 1 puff INHALATION RT-DAILY 07/22/17 01/01/19 H istory Ellipta 200-25 Mcg INH] Levothyroxine Sodium [Synthroid] 50 mcg PO DAILY 07/22/17 01/01/19 History Pregabalin [Lyrica] 150 mg PO BID 07/22/17 01/01/19 History Rivaroxaban [Xarelto] 20 mg PO DAILY 07/22/17 01/01/19 History oxyCODONE-APAP 10-325MG [Percocet 1 tab PO BID PRN 07/22/17 01/01/19 History 10-325 mg] Albuterol Inhaler [Ventolin Hfa 2 puff INHALATION RT-Q6H PRN 06/01/18 01/01/19 History Inhaler] Diltiazem HCl [Diltiazem 24Hr ER 180 mg PO DAILY 06/01/18 01/01/19 History (CD)] Furosemide [Lasix] 40 mg PO DAILY 06/01/18 01/01/19 History Ipratropium-Albuterol Nebulize 3 ml INHALATION RT-QID PRN 06/01/18 01/01/19 History [Duoneb 0.5 mg-3 mg/3 ml Soln] clonazePAM [KlonoPIN] 1 mg PO HS 06/01/18 01/01/19 History clonazePAM [KlonoPIN] 2 mg PO QAM 06/01/18 01/01/19 History Furosemide [Lasix] 20 mg PO DAILY@1500 PRN 12/30/18 01/01/19 History Montelukast [Singulair] 10 mg PO DAILY 12/30/18 01/01/19 History Nystatin 100,000Unit/gm Cream 1 applic TOPICAL BID 12/30/18 01/01/19 History [Mycostatin Cream] Polyethylene Glycol 3350 [Miralax] 17 gm PO DAILY 12/30/18 01/01/19 History Spironolactone [Aldactone] 25 mg PO DAILY 12/30/18 01/01/19 History Tamsulosin [Flomax] 0.4 mg PO DAILY 12/30/18 01/01/19 History Tiotropium [place] [Spiriva 2 puff INHALATION RT-DAILY 12/30/18 01/01/19 History Respimat] Doxycycline Hyclate [Vibramycin] 100 mg PO ONCE 01/01/19 01/01/19 History predniSONE 40 mg PO DAILY 01/01/19 01/01/19 History Allergies Allergy/AdvReac Type Severity Reaction Status Date / Time amoxicillin trihydrate Allergy Rash/Hives Verified 01/01/19 21:38 [From Augmentin] cefaclor [From Ceclor] Allergy Rash/Hives Verified 01/01/19 21:38 Iodinated Contrast Media Allergy Throat Verified 01/01/19 21:38 [Iodinated Contrast Media - Swelling IV Dye] Penicillins Allergy Rash/Hives Verified 01/01/19 21:38 potassium clavulanate Allergy Rash/Hives Verified 01/01/19 21:38 [From Augmentin] Physical Exam Vitals: Vital Signs Temp Pulse Pulse Resp BP BP Pulse Ox 01/02/19 08:15 92 01/02/19 08:05 96 01/02/19 08:00 97.6 F 93 24 133/66 95 01/02/19 04:23 84 01/02/19 04:16 92 01/02/19 04:00 98.4 F 93 20 96/64 96 01/02/19 02:45 101 H 22 117/63 96 01/02/19 02:30 98 18 99/57 95 01/02/19 02:15 96 12 105/58 95 01/02/19 02:00 41 H 90/61 94 L 01/02/19 01:45 101 H 17 109/65 97 01/02/19 01:30 106 H 20 115/83 97 01/02/19 01:15 103 H 19 122/77 97 01/02/19 01:09 102 H 18 01/02/19 01:00 96 22 114/61 99 01/02/19 00:58 86 18 01/02/19 00:45 121 H 23 91/61 97 01/02/19 00:30 19 95/81 98 01/02/19 00:15 123 H 15 94/63 97 01/02/19 00:00 98.4 F 133 H 93 21 113/76 96 01/01/19 23:45 137 H 20 102/79 97 01/01/19 23:30 129 H 19 131/82 98 01/01/19 23:15 96 23 111/85 97 01/01/19 23:00 135 H 21 115/66 98 01/01/19 22:42 113 H 22 01/01/19 22:41 122 H 21 112/69 99 01/01/19 22:35 113 H 22 01/01/19 20:57 98 F 69 20 106/63 94 L Intake and Output 01/01/19 01/02/19 01/02/19 22:59 06:59 14:59 Intake Total 1.583 123.417 Balance 1.583 123.417 Intake: Intake, IV Titration 1.583 123.417 Amount Diltiazem 125 mg In 1.583 123.417 Sodium Chloride 0.9% 100 ml @ Per Protocol IV .Q0M [facility] Rx#:[id number] Other: # Voids 2 Weight 72.575 kg GENERAL EXAM: Alert, pleasant, 63-year-old white female, slightly anxious, but does not appear to be in any acute distress, currently on 4-5 L of oxygen, mild conversational dyspnea HEAD: Normocephalic/atraumatic. EYES: Normal reaction of pupils, equal size. Conjunctiva pink, sclera white. NOSE: Clear with pink turbinates. THROAT: No erythema or exudates. NECK: No masses, no JVD, no thyroid enlargement, no adenopathy. CHEST: No chest wall deformity. Symmetrical expansion. LUNGS: Equal air entry with diffuse expiratory wheezing CVS: Regular rate and rhythm, normal S1 and S2, no gallops, no murmurs, no rubs ABDOMEN: Soft, nontender. No hepatosplenomegaly, normal bowel sounds, no guarding or rigidity. EXTREMITIES: No clubbing, trace lower extremity edema left greater than the right, no cyanosis, 2+ pulses and upper and lower extremities. There are extensive bruises involving the left foot, left lower leg, and to a lesser degree right lower leg, toes on the left foot, and patient denies any recent trauma, he is on chronic anticoagulation MUSCULOSKELETAL: Muscle strength and tone normal. SPINE: No scoliosis or deformity SKIN: No rashes CENTRAL NERVOUS SYSTEM: Alert and oriented -3. No focal deficits, tone is normal in all 4 extremities. PSYCHIATRIC: Alert and oriented -3. Appropriate affect. Intact judgment and insight. Results - Laboratory Findings CBC and BMP: 01/01/19 22:05 01/01/19 22:05 PT/INR, D-dimer PT 12.1 sec (9.0-12.0) H 01/01/19 22:05 INR 1.2 (<1.2) H 01/01/19 22:05 D-Dimer 0.35 mg/L FEU (<0.60) 01/02/19 09:05 Abnormal lab findings: Abnormal Labs 01/01/19 01/01/1919 22:05 22:05 22:05 WBC 11.1 H RDW 17.6 H Neutrophils # 8.9 H Lymphocytes # 0.9 L PT 12.1 H INR 1.2 H Sodium 136 L Chloride 93 L Carbon Dioxide 37 H Glucose 115 H Total Protein 6.2 L HDL Cholesterol 01/02/19 04:02 WBC RDW Neutrophils # Lymphocytes # PT INR Sodium Chloride Carbon Dioxide Glucose Total Protein HDL Cholesterol 62 H - Diagnostic Findings Chest x-ray: report reviewed, image reviewed Additional studies: EKG reviewed Assessment and Plan Plan: Assessment: #1. Acute on chronic hypoxemic respiratory failure secondary to acute exacerbation of chronic obstructive pulmonary disease complicated by tracheobronchitis #2. New-onset A. fib RVR, patient has since converted to sinus rhythm #3. History of pulmonary embolism on Xarelto #4. Recent hospitalization at [facility] for COPD exacerbation, patient was discharged home on accommodation of prednisone and doxycycline #5. Advanced COPD on home oxygen at 3 L, and maintenance dose prednisone #6. Former smoker #7. Hypothyroidism #8. Previous history of CVA #9. Hypertension #10. Hyperlipidemia #11. Anxiety #12. Chronic left leg swelling, and there is bruising involving the left foot, denies any recent trauma #13. Degenerative disc disease #14. Valvular heart disease, severe mitral regurgitation, and moderate pulmonary hypertension with PA systolic of 57 mmHg is seen on the echocardiogram from May 2018 Plan: Continue IV steroids, nebulized bronchodilators, and we'll switch Symbicort 2 P ulmicort and Perforomist, we will offer the patient BiPAP support as needed she develops respiratory fatigue, collect a sputum culture, continue with Levaquin, cardiology is following, patient on the previous echocardiogram was noted to have severe mitral regurgitation, she has converted back to sinus rhythm, she is already on anticoagulation. We'll continue to closely follow and make further recommendations, chest x-ray has been reviewed and there is no clear evidence of pneumonia. We'll treat the patient for acute COPD exacerbation. I performed a history & physical examination of the patient and discussed their management with my nurse practitioner, Renee Dior. I reviewed the nurse practitioner's note and agree with the documented findings and plan of care. Lung sounds are positive for diffuse wheezes throughout the lung russell. The findings and the impression was discussed with the patient. I attest to the documentation by the nurse practitioner. Time with Patient: Greater than 30
--- NOTE | 2019-01-02 12:43 | P.CRDCN ---
History of Present Illness History of present illness: This is Jie Streeter PA-C dictating a consult on this patient The patient was interviewed and examined by me as well as by Dr. Ferguson Case discussed with Dr. Ferguson and he agrees with the plan of care IMPRESSION / ASSESSMENT: Shortness of breath secondary to acute COPD exacerbation new onset Atrial fibrillation with RVR, converted to sinus rhythm on IV Cardizem, already anticoagulated on Xarelto COPD on home oxygen History of valvular heart disease History of CAD, anticoagulated with Xarelto Dyslipidemia Hypertension Current smoker, continues to smoke a few cigarettes a day PLAN: Increase diltiazem to 240 mg daily Increase atorvastatin decrease aspirin 81 mg daily Continue Lasix continue anticoagulation with xarelto She may go to a medical floor with telemetry discussed smoking cessation patient HPI Patient is a 63-year-old female with a past medical history of COPD on home home oxygen, hypertension, dyslipidemia, valvular heart disease, CVA , PE anticoagulated with Xarelto, and current smoker who presented with complaints of shortness of breath. He follows with Dr. Silva in the office. She was recently discharged a few days ago after COPD exacerbation. States she continues to have a productive cough with green sputum, low-grade fevers, and shortness of breath. Denies any palpitations or chest pain. States she did get a little dizzy at home. no syncope. EKG upon presentation to the emergency department showed atrial fibrillation with rapid ventricular response, rate 156 bpm. She was started on IV Cardizem and converted to sinus rhythm.. Chest x- ray showed mild persistent plate atelectasis in the left lung base. Laboratory reveals sinus rhythm. Patient seen and examined in the emergency department. He continues to feel short of breath. Denies any palpitations, chest pain, or dizziness. ROS: Positive for fevers and chills Positive for productive cough no nausea, vomiting or diarrhea, no hematuria, dysuria, no musculoskeletal complaints, History of TIA and stroke no skin lesions. EXAMINATION: Patient is afebrile, pulse 94, respirations 20, blood pressure 136/70, oxygen saturation 95% on 4 L nasal cannula Patient seen and examined sitting up in bed, tachypnic breath sound diminished with diffuse wheezing bilaterally Heart is regular, no audible murmurs No elevated JVD Trace lower extremity edema REVIEW OF LABS, ECG & MEDICAL DATA WBC 11.1, hemoglobin 11.9, platelets 181, d-dimer negative, potassium 3.8, BUN 12, creatinine 0.54, magnesium 1.7 Troponin Negative 3 TSH within normal limits LDL 57 Previous echocardiogram showed EF 55-60%, severe MR Past Medical History Past Medical History: COPD, CVA/TIA, Hyperlipidemia, Hypertension, Memory Impairment, Pulmonary Embolus (PE), Thyroid Disorder Additional Past Medical History / Comment(s): CVA WITH LEFT SIDED EYE DROOP, NUMBNESS ALAN FINGERS, LEFT LEG SWELLING, DDD, SPINAL STENOSIS, severe mitral and moderate tricuspid valve regurgitation History of Any Multi-Drug Resistant Organisms: None Reported Past Surgical History: Back Surgery Additional Past Surgical History / Comment(s): d&c's, ALAN CATARACT SX Past Anesthesia/Blood Transfusion Reactions: No Reported Reaction Additional Past Anesthesia/Blood Transfusion Reaction / Comment(s): "anesthesia took more than usual, I didn't go under" Past Psychological History: Anxiety Smoking Status: Former smoker Past Alcohol Use History: None Reported Additional Past Alcohol Use History / Comment(s): smokes 10-15 cigarettes a day, from age 17 Past Drug Use History: None Reported - Past Family History Sister(s) Family Medical History: Cancer Additional Family Medical History / Comment(s): breast Medications and Allergies Home Medications Medication Instructions Recorded Confirmed Type Morphine Sulfate ER [Ms Contin] 60 mg PO Q8H 06/06/14 01/01/19 History Simvastatin [Zocor] 20 mg PO DAILY 06/06/14 01/01/19 History DULoxetine HCL [Cymbalta] 60 mg PO DAILY 07/22/17 01/01/19 History Fluticasone/Vilanterol [Breo 1 puff INHALATION RT-DAILY 07/22/17 01/01/19 History Ellipta 200-25 Mcg INH] Levothyroxine Sodium [Synthroid] 50 mcg PO DAILY 07/22/17 01/01/19 History Pregabalin [Lyrica] 150 mg PO BID 07/22/17 01/01/19 History Rivaroxaban [Xarelto] 20 mg PO DAILY 07/22/17 01/01/19 History oxyCODONE-APAP 10-325MG [Percocet 1 tab PO BID PRN 07/22/17 01/01/19 History 10-325 mg] Albuterol Inhaler [Ventolin Hfa 2 puff INHALATION RT-Q6H PRN 06/01/18 01/01/19 History Inhaler] Diltiazem HCl [Diltiazem 24Hr ER 180 mg PO DAILY 06/01/18 01/01/19 History (CD)] Furosemide [Lasix] 40 mg PO DAILY 06/01/18 01/01/19 History Ipratropium-Albuterol Nebulize 3 ml INHALATION RT-QID PRN 06/01/18 01/01/19 History [Duoneb 0.5 mg-3 mg/3 ml Soln] clonazePAM [KlonoPIN] 1 mg PO HS 06/01/18 01/01/19 History clonazePAM [KlonoPIN] 2 mg PO QAM 06/01/18 01/01/19 History Furosemide [Lasix] 20 mg PO DAILY@1500 PRN 12/30/18 01/01/19 History Montelukast [Singulair] 10 mg PO DAILY 12/30/18 01/01/19 History Nystatin 100,000Unit/gm Cream 1 applic TOPICAL BID 12/30/18 01/01/19 History [Mycostatin Cream] Polyethylene Glycol 3350 [Miralax] 17 gm PO DAILY 12/30/18 01/01/19 History Spironolactone [Aldactone] 25 mg PO DAILY 12/30/18 01/01/19 History Tamsulosin [Flomax] 0.4 mg PO DAILY 12/30/18 01/01/19 History Tiotropium [place] [Spiriva 2 puff INHALATION RT-DAILY 12/30/18 01/01/19 History Respimat] Doxycycline Hyclate [Vibramycin] 100 mg PO ONCE 01/01/19 01/01/19 History predniSONE 40 mg PO DAILY 01/01/19 01/01/19 History Allergies Allergy/AdvReac Type Severity Reaction Status Date / Time amoxicillin trihydrate Allergy Rash/Hives Verified 01/01/19 21:38 [From Augmentin] cefaclor [From Ceclor] Allergy Rash/Hives Verified 01/01/19 21:38 Iodinated Contrast Media Allergy Throat Verified 01/01/19 21:38 [Iodinated Contrast Media - Swelling IV Dye] Penicillins Allergy Rash/Hives Verified 01/01/19 21:38 potassium clavulanate Allergy Rash/Hives Verified 01/01/19 21:38 [From Augmentin] Physical Exam Vitals: Vital Signs Temp Pulse Pulse Resp BP BP Pulse Ox 01/02/19 12:34 92 01/02/19 12:22 88 01/02/19 12:00 94 20 136/70 95 01/02/19 08:15 92 01/02/19 08:05 96 01/02/19 08:00 97.6 F 93 24 133/66 95 01/02/19 04:23 84 01/02/19 04:16 92 01/02/19 04:00 98.4 F 93 20 96/64 96 01/02/19 02:45 101 H 22 117/63 96 01/02/19 02:30 98 18 99/57 95 01/02/19 02:15 96 12 105/58 95 01/02/19 02:00 41 H 90/61 94 L 01/02/19 01:45 101 H 17 109/65 97 01/02/19 01:30 106 H 20 115/83 97 01/02/19 01:15 103 H 19 122/77 97 01/02/19 01:09 102 H 18 01/02/19 01:00 96 22 114/61 99 01/02/19 00:58 86 18 01/02/19 00:45 121 H 23 91/61 97 01/02/19 00:30 19 95/81 98 01/02/19 00:15 123 H 15 94/63 97 01/02/19 00:00 98.4 F 133 H 93 21 113/76 96 01/01/19 23:45 137 H 20 102/79 97 01/01/19 23:30 129 H 19 131/82 98 01/01/19 23:15 96 23 111/85 97 01/01/19 23:00 135 H 21 115/66 98 01/01/19 22:42 113 H 22 01/01/19 22:41 122 H 21 112/69 99 01/01/19 22:35 113 H 22 01/01/19 20:57 98 F 69 20 106/63 94 L Intake and Output 01/01/19 01/02/19 01/02/19 22:59 06:59 14:59 Intake Total 1.583 123.417 Balance 1.583 123.417 Intake: Intake, IV Titration 1.583 123.417 Amount Diltiazem 125 mg In 1.583 123.417 Sodium Chloride 0.9% 100 ml @ Per Protocol IV .Q0M [facility] Rx#:[id number] Other: # Voids 2 Weight 72.575 kg Results 01/01/19 22:05 01/01/19 22:05 Cardiac Enzymes 01/01/19 01/01/19 01/02/19 Range/Units 22:05 22:05 03:58 AST 30 (14-36) U/L Troponin I <0.012 <0.012 (0.000-0.034) ng/mL 01/02/19 Range/Units 09:05 AST (14-36) U/L Troponin I <0.012 (0.000-0.034) ng/mL Coagulation 01/01/19 Range/Units 22:05 PT 12.1 H (9.0-12.0) sec APTT 26.1 (22.0-30.0) sec Lipids 01/02/19 Range/Units 04:02 Triglycerides 72 (<150) mg/dL Cholesterol 133 (<200) mg/dL HDL Cholesterol 62 H (40-60) mg/dL CBC 01/01/19 Range/Units 22:05 WBC 11.1 H (3.8-10.6) k/uL RBC 4.47 (3.80-5.40) m/uL Hgb 11.9 (11.4-16.0) gm/dL Hct 38.3 (34.0-46.0) % Plt Count 181 (150-450) k/uL Comprehensive Metabolic Panel 01/01/19 Range/Units 22:05 Sodium 136 L (137-145) mmol/L Potassium 3.8 (3.5-5.1) mmol/L Chloride 93 L (98-107) mmol/L Carbon Dioxide 37 H (22-30) mmol/L BUN 12 (7-17) mg/dL Creatinine 0.54 (0.52-1.04) mg/dL Glucose 115 H (74-99) mg/dL Calcium 9.1 (8.4-10.2) mg/dL AST 30 (14-36) U/L ALT 29 (9-52) U/L Alkaline Phosphatase 82 (38-126) U/L Total Protein 6.2 L (6.3-8.2) g/dL Albumin 3.7 (3.5-5.0) g/dL Current Medications Generic Name Dose Route Start Last Admin Trade Name Freq PRN Reason Stop Dose Admin Albuterol/Ipratropium 3 ml 01/02/19 00:00 01/02/19 12:22 Duoneb 0.5 Mg-3 Mg/3 Ml Soln INHALATION 3 ml RT-Q4H [facility]LE Administration Albuterol/Ipratropium 3 ml 01/02/19 16:00 Duoneb 0.5 Mg-3 Mg/3 Ml Soln INHALATION RT-QID [facility]HELLE Albuterol/Ipratropium 3 ml 01/02/19 12:17 Duoneb 0.5 Mg-3 Mg/3 Ml Soln INHALATION RT-Q2H PRN Shortness Of Breath Or Wheezing Alprazolam 0.5 mg 01/01/19 23:45 Xanax PO QID PRN Anxiety Aspirin 81 mg 01/03/19 09:00 Aspirin PO DAILY [facility] Atorvastatin Calcium 20 mg 01/02/19 09:00 01/02/19 09:48 Lipitor PO 20 mg DAILY [facility] Administration Budesonide 1 mg 01/02/19 20:00 Pulmicort INHALATION RT-BID [facility] Clonazepam 1 mg 01/02/19 21:00 Klonopin PO HS [facility] Clonazepam 2 mg 01/02/19 09:00 01/02/19 09:48 Klonopin PO 2 mg QAM [facility] Administration Diltiazem HCl 240 mg 01/02/19 09:00 01/02/19 09:48 Cardizem Cd PO 240 mg DAILY [facility] Administration Duloxetine HCl 60 mg 01/02/19 09:00 01/02/19 09:48 Cymbalta PO 60 mg DAILY [facility] Administration Formoterol Fumarate 20 mcg 01/02/19 20:00 Perforomist INHALATION RT-BID [facility] Furosemide 20 mg 01/02/19 15:00 Lasix PO DAILY@1500 PRN Edema Furosemide 40 mg 01/02/19 09:00 01/02/19 11:18 Lasix PO 40 mg DAILY [facility] Administration Levofloxacin 750 mg/ IV 150 mls @ 100 mls/hr 01/02/19 23:00 Solution IVPB Q24H [facility] Levothyroxine Sodium 50 mcg 01/02/19 06:30 01/02/19 06:10 Synthroid PO Not Given DAILY@0630 [facility] Methylprednisolone Sodium Succinate 60 mg 01/02/19 09:00 01/02/19 09:52 Solu-Medrol IV 60 mg QID [facility] Administration Montelukast Sodium 10 mg 01/02/19 09:00 01/02/19 09:48 Singulair PO 10 mg DAILY [facility] Administration Morphine Sulfate 60 mg 01/01/19 23:45 01/02/19 09:51 Ms Contin PO Not Given Q8H [facility] Nitroglycerin 0.4 mg 01/01/19 23:45 Nitrostat SUBLINGUAL Q5M PRN Chest Pain Nitroglycerin 0.5 inch 01/02/19 00:00 01/02/19 06:09 Nitro-Bid Oint TOPICAL Not Given Q6HR [facility] Nystatin 1 applic 01/02/19 09:00 01/02/19 09:52 Mycostatin Cream TOPICAL Not Given BID [facility] Oxycodone/Acetaminophen 1 each 01/01/19 23:48 01/02/19 09:49 Percocet 10-325 PO 1 each BID PRN Administration Breakthrough Pain Polyethylene Glycol 17 gm 01/02/19 09:00 01/02/19 09:52 Miralax PO Not Given DAILY [facility] Pregabalin 150 mg 01/02/19 09:00 01/02/19 11:20 Lyrica PO Not Given BID [facility] Rivaroxaban 20 mg 01/02/19 09:00 01/02/19 09:48 Xarelto PO 20 mg DAILY [facility] Administration Spironolactone 25 mg 01/02/19 09:00 01/02/19 09:50 Aldactone PO 25 mg DAILY [facility] Administration Tamsulosin HCl 0.4 mg 01/02/19 09:00 01/02/19 09:48 Flomax PO 0.4 mg DAILY [facility] Administration Intake and Output 01/01/19 01/02/19 01/02/19 22:59 06:59 14:59 Intake Total 1.583 123.417 Balance 1.583 123.417 Intake: Intake, IV Titration 1.583 123.417 Amount Diltiazem 125 mg In 1.583 123.417 Sodium Chloride 0.9% 100 ml @ Per Protocol IV .Q0M [facility] Rx#:[id number] Other: # Voids 2 Weight 72.575 kg 01/01/19 22:05 01/01/19 22:05
[2019-01-02] MEDS ORDERED: FUROSEMIDE 20 MG TAB PO PRN (15:00)
[2019-01-02] MEDS ORDERED: FLUCONAZOLE 100 MG TAB PO ONE (16:45)
--- NOTE | 2019-01-02 18:00 | ECHOF ---
Referral Reason:sob MEASUREMENTS -------- HEIGHT: 157.5 cm WEIGHT: 72.6 kg BP: 96/64 RVIDd: 3.1 cm (< 3.3) IVSd: 1.4 cm (0.6 - 1.1) LVIDd: 3.7 cm (3.9 - 5.3) LVPWd: 1.4 cm (0.6 - 1.1) IVSs: 1.7 cm LVIDs: 2.3 cm LVPWs: 1.4 cm LA Diam: 3.0 cm (2.7 - 3.8) LAESV Index (A-L): 27.11 ml/m Ao Diam: 3.2 cm (2.0 - 3.7) AV Cusp: 2.1 cm (1.5 - 2.6) MV EXCURSION: 15.618 mm (> 18.000) MV EF SLOPE: 109 mm/s (70 - 150) EPSS: 0.3 cm MV E Parth: 1.10 m/s MV DecT: 255 ms MV A Parth: 1.31 m/s MV E/A Ratio: 0.84 RAP: 15.00 mmHg RVSP: 51.32 mmHg FINDINGS -------- Sinus rhythm. This was a technically adequate study. The left ventricular size is normal. There is moderate concentric left ventricular hypertrophy. O verall left ventricular systolic function is normal with, an EF between 60 - 65 %. The right ventricle is normal in size. Normal LA size by volume 22+/-6 ml/m2. The right atrium is normal in size. Interatrial and interventricular septum intact. The aortic valve is trileaflet and appears structurally normal. Mild mitral annular calcification present. Fkwesrtz-ks-erikew mitral regurgitation is present. Mild tricuspid regurgitation present. There is moderate pulmonary hypertension. The right ventric ular systolic pressure, as measured by Doppler, is 51.32mmHg. Trace/mild (physiologic) pulmonic regurgitation. The aortic root size is normal. Normal inferior vena cava with less than 50% inspiratory collapse consistent with estimated right atr ial pressure of 15 mmHg. There is no pericardial effusion. CONCLUSIONS -------- 1. Sinus rhythm. 2. This was a technically adequate study. 3. The left ventricular size is normal. 4. There is moderate concentric left ventricular hypertrophy. 5. Overall left ventricular systolic function is normal with, an EF between 60 - 65 %. 6. The right ventricle is normal in size. 7. Normal LA size by volume 22+/-6 ml/m2. 8. The right atrium is normal in size. 9. Interatrial and interventricular septum intact. 10. The aortic valve is trileaflet and appears structurally normal. 11. Mild mitral annular calcification present. 12. Nmkxgpej-gi-wydynu mitral regurgitation is present. 13. Mild tricuspid regurgitation present. 14. There is moderate pulmonary hypertension. 15. The right ventricular systolic pressure, as measured by Doppler, is 51.32mmHg. 16. Trace/mild (physiologic) pulmonic regurgitation. 17. The aortic root size is normal. 18. Normal inferior vena cava with less than 50% inspiratory collapse consistent with estimated right atrial pressure of 15 mmHg. 19. There is no pericardial effusion. [employer] REPAIRER: Sirena Partida RDCS
[2019-01-02] MEDS ORDERED: diphenhydrAMINE 25 MG CAP PO PRN (18:02)
[2019-01-02] MEDS: FORMOTEROL FUMARATE 20 MCG/2 ML NEBU INHALATION SCH (20:08)
[2019-01-02] MEDS: BUDESONIDE 1 MG/2 ML NEBU INHALATION SCH (20:08)
[2019-01-02] MEDS: AMOXIC-POT CLAV 875-125MG 1 EACH TAB PO SCH (20:42)
[2019-01-02 20:52] LABS: Glucose,Whole Blood 223 mg/dL (75-99)
[2019-01-02] MEDS: INSULIN ASPART (NovoLOG) 100 UNIT/ML VIAL SQ SCH (20:57)
--- NOTE | 2019-01-02 22:13 | P.HPIM ---
History of Present Illness H&P Date: 01/02/19 Chief Complaint: Short of breath History of present complaint: This is a pleasant 63-year-old patient of Dr. Trevor Hamilton. 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 Chronic stable medical conditions include hypertension, hyperlipidemia, mild cognitive impairment, hypothyroid, spinal stenosis, osteoarthritis, severe mitral and moderate tricuspid valve regurgitation. Patient about 2 weeks ago was admitted to [facility]. She is not sure of the diagnosis but it was a long issue. When she was discharged she says she really didn't feel much better. She continues to get progressively short of breath and wheezing. Was bringing up some phlegm green in color. Denies any fever and chills. She also been noticing increasing palpitation and heart skipping and flipping beats. Appetite is gone down. Weak and tired. Does use a cane or a walker. Patient was found to be in atrial fibrillation with rapid ventricular rate. This was initially started on IV antibiotics, IV steroids, IV Cardizem drip and admitted for the same. Review of systems: GEN.: Tired EYES: None HEENT: None NECK: None RESPIRATORY: As above CARDIOVASCULAR: None GASTROINTESTINAL: None GENITOURINARY: None MUSCULOSKELETAL: Pain in joints LYMPHATICS: None HEMATOLOGICAL: None PSYCHIATRY: But anxious and forgetful NEUROLOGICAL: None Social history: Lives with her . Smokes about half a pack a day for over 45 years. Denies alcohol Physical examination: VITAL SIGNS: 98, 122, 21, 11 2/69, 94% on 2 L GENERAL: BMI 29.3, sitting on a bed, short of breath. EYES: Pupils equal. Conjunctiva normal. HEENT: External appearance of nose and ears normal, oral cavity with white spots in the posterior part. NECK: JVD not raised; masses not palpable. HEART: Heart sounds regular no edema]. LUNGS: Respiratory rate increased, diminished breath sounds prolonged expiration and wheezing, but able to speak in full sentences, excessive muscles okay. ABDOMEN: Soft, nontender, liver spleen not palpable, no masses palpable. PSYCH: Alert and oriented x3; mood and affect anxiousl. NEUROLOGICAL: Cranial nerves grossly intact; no facial asymmetry, power and sensation grossly intact. LYMPHATICS: No lymph nodes palpable in the axilla and neck INVESTIGATIONS, reviewed in the clinical context: White count 11.1 hemoglobin 11.9 platelets 181 potassium 3.8 creatinine 0.54 Troponin I 3 negative EKG tracing personally reviewed by me shows atrial fibrillation with a rapid ventricular rate Chest x-ray film personally reviewed by me-hyperinflation no obvious infiltrate Assessment: -Persistent atrial fibrillation with rapid ventricular rate, chronically on Xyzal toe -Acute COPD exacerbation in a current smoker -Acute tracheal bronchitis -Acute oropharyngeal candidiasis from use of steroids and antibiotics -Hyperlipidemia -Essential hypertension -Mild cognitive impairment -Hypothyroid -Chronic anxiety depression otherwise specified -Chronic gait dysfunction uses a cane and a walker -Chronic nicotine dependence patient cigarette smoker Plan: Patient started on nebulized bronchodilators, IV steroids, and he is to rest. Diflucan was given for the candidiasis. Home medications resumed. Patient was initially put on IV Cardizem drip. And switched over to by mouth Cardizem white count surgery. Other home medications resumed. Smoke cessation counseling: This was done with the patient. Nicotine patch is being given. More than 3 minutes was spent for this Past Medical History Past Medical History: COPD, CVA/TIA, Hyperlipidemia, Hypertension, Memory Impairment, Pulmonary Embolus (PE), Thyroid Disorder Additional Past Medical History / Comment(s): CVA WITH LEFT SIDED EYE DROOP, NUMBNESS ALAN FINGERS, LEFT LEG SWELLING, DDD, SPINAL STENOSIS, severe mitral and moderate tricuspid valve regurgitation History of Any Multi-Drug Resistant Organisms: None Reported Past Surgical History: Back Surgery Additional Past Surgical History / Comment(s): d&c's, ALAN CATARACT SX Past Anesthesia/Blood Transfusion Reactions: No Reported Reaction Additional Past Anesthesia/Blood Transfusion Reaction / Comment(s): "anesthesia took more than usual, I didn't go under" Past Psychological History: Anxiety Smoking Status: Former smoker Past Alcohol Use History: None Reported Additional Past Alcohol Use History / Comment(s): smokes 10-15 cigarettes a day, from age 17 Past Drug Use History: None Reported - Past Family History Sister(s) Family Medical History: Cancer Additional Family Medical History / Comment(s): breast Medications and Allergies Home Medications Medication Instructions Recorded Confirmed Type Morphine Sulfate ER [Ms Contin] 60 mg PO Q8H 06/06/14 01/01/19 History Simvastatin [Zocor] 20 mg PO DAILY 06/06/14 01/01/19 History DULoxetine HCL [Cymbalta] 60 mg PO DAILY 07/22/17 01/01/19 History Fluticasone/Vilanterol [Breo 1 puff INHALATION RT-DAILY 07/22/17 01/01/19 History Ellipta 200-25 Mcg INH] Levothyroxine Sodium [Synthroid] 50 mcg PO DAILY 07/22/17 01/01/19 History Pregabalin [Lyrica] 150 mg PO BID 07/22/17 01/01/19 History Rivaroxaban [Xarelto] 20 mg PO DAILY 07/22/17 01/01/19 History oxyCODONE-APAP 10-325MG [Percocet 1 tab PO BID PRN 07/22/17 01/01/19 History 10-325 mg] Albuterol Inhaler [Ventolin Hfa 2 puff INHALATION RT-Q6H PRN 06/01/18 01/01/19 History Inhaler] Diltiazem HCl [Diltiazem 24Hr ER 180 mg PO DAILY 06/01/18 01/01/19 History (CD)] Furosemide [Lasix] 40 mg PO DAILY 06/01/18 01/01/19 History Ipratropium-Albuterol Nebulize 3 ml INHALATION RT-QID PRN 06/01/18 01/01/19 History [Duoneb 0.5 mg-3 mg/3 ml Soln] clonazePAM [KlonoPIN] 1 mg PO HS 06/01/18 01/01/19 History clonazePAM [KlonoPIN] 2 mg PO QAM 06/01/18 01/01/19 History Furosemide [Lasix] 20 mg PO DAILY@1500 PRN 12/30/18 01/01/19 History Montelukast [Singulair] 10 mg PO DAILY 12/30/18 01/01/19 History Nystatin 100,000Unit/gm Cream 1 applic TOPICAL BID 12/30/18 01/01/19 History [Mycostatin Cream] Polyethylene Glycol 3350 [Miralax] 17 gm PO DAILY 12/30/18 01/01/19 History Spironolactone [Aldactone] 25 mg PO DAILY 12/30/18 01/01/19 History Tamsulosin [Flomax] 0.4 mg PO DAILY 12/30/18 01/01/19 History Tiotropium Rice [Spiriva 2 puff INHALATION RT-DAILY 12/30/18 01/01/19 History Respimat] Doxycycline Hyclate [Vibramycin] 100 mg PO ONCE 01/01/19 01/01/19 History predniSONE 40 mg PO DAILY 01/01/19 01/01/19 History Allergies Allergy/AdvReac Type Severity Reaction Status Date / Time amoxicillin trihydrate Allergy Rash/Hives Verified 01/01/19 21:38 [From Augmentin] cefaclor [From Ceclor] Allergy Rash/Hives Verified 01/01/19 21:38 Iodinated Contrast Media Allergy Throat Verified 01/01/19 21:38 [Iodinated Contrast Media - Swelling IV Dye] Penicillins Allergy Rash/Hives Verified 01/01/19 21:38 potassium clavulanate Allergy Rash/Hives Verified 01/01/19 21:38 [From Augmentin] Physical Exam Vitals: Vital Signs Temp Pulse Pulse Resp BP BP Pulse Ox 01/02/19 08:15 92 01/02/19 08:05 96 01/02/19 08:00 97.6 F 93 24 133/66 95 01/02/19 04:23 84 01/02/19 04:16 92 01/02/19 04:00 98.4 F 93 20 96/64 96 01/02/19 02:45 101 H 22 117/63 96 01/02/19 02:30 98 18 99/57 95 01/02/19 02:15 96 12 105/58 95 01/02/19 02:00 41 H 90/61 94 L 01/02/19 01:45 101 H 17 109/65 97 01/02/19 01:30 106 H 20 115/83 97 01/02/19 01:15 103 H 19 122/77 97 01/02/19 01:09 102 H 18 01/02/19 01:00 96 22 114/61 99 01/02/19 00:58 86 18 01/02/19 00:45 121 H 23 91/61 97 01/02/19 00:30 19 95/81 98 01/02/19 00:15 123 H 15 94/63 97 01/02/19 00:00 98.4 F 133 H 93 21 113/76 96 01/01/19 23:45 137 H 20 102/79 97 01/01/19 23:30 129 H 19 131/82 98 01/01/19 23:15 96 23 111/85 97 01/01/19 23:00 135 H 21 115/66 98 01/01/19 22:42 113 H 22 01/01/19 22:41 122 H 21 112/69 99 01/01/19 22:35 113 H 22 01/01/19 20:57 98 F 69 20 106/63 94 L Intake and Output 01/01/19 01/02/19 01/02/19 22:59 06:59 14:59 Intake Total 1.583 123.417 Balance 1.583 123.417 Intake: Intake, IV Titration 1.583 123.417 Amount Diltiazem 125 mg In 1.583 123.417 Sodium Chloride 0.9% 100 ml @ Per Protocol IV .Q0M [facility] Rx#:[id number] Other: # Voids 2 Weight 72.575 kg Results CBC & Chem 7: 01/01/19 22:05 01/01/19 22:05 Labs: Abnormal Lab Results - Last 24 Hours (Table) 01/01/19 01/01/19 01/01/19 Range/Units 22:05 22:05 22:05 WBC 11.1 H (3.8-10.6) k/uL RDW 17.6 H (11.5-15.5) % Neutrophils # 8.9 H (1.3-7.7) k/uL Lymphocytes # 0.9 L (1.0-4.8) k/uL PT 12.1 H (9.0-12.0) sec INR 1.2 H (<1.2) Sodium 136 L (137-145) mmol/L Chloride 93 L (98-107) mmol/L Carbon Dioxide 37 H (22-30) mmol/L Glucose 115 H (74-99) mg/dL Total Protein 6.2 L (6.3-8.2) g/dL HDL Cholesterol (40-60) mg/dL 01/02/19 Range/Units 04:02 WBC (3.8-10.6) k/uL RDW (11.5-15.5) % Neutrophils # (1.3-7.7) k/uL Lymphocytes # (1.0-4.8) k/uL PT (9.0-12.0) sec INR (<1.2) Sodium (137-145) mmol/L Chloride (98-107) mmol/L Carbon Dioxide (22-30) mmol/L Glucose (74-99) mg/dL Total Protein (6.3-8.2) g/dL HDL Cholesterol 62 H (40-60) mg/dL Thrombosis Risk Factor Assmnt - Choose All That Apply Any of the Below Risk Factors Present?: Yes Each Factor Represents 1 point: Abnormal pulmonary function (COPD) Each Risk Factor Represents 2 Points: Age 61-74 years Thrombosis Risk Factor Assessment Total Risk Factor Score: 3 Thrombosis Risk Factor Assessment Level: Moderate Risk
[2019-01-02] MEDS ORDERED: LEVOFLOXACIN 750MG-D5W PMX 750 MG in DEXTROSE/WATER 1 150ML.BAG IVPB SCH (23:00)
[2019-01-02] MEDS: methylPREDNISolone SOD SUCCI 40 MG/ML 1 ML VIAL IV SCH (23:39)
[2019-01-02] MEDS: NICOTINE 14MG/24HR PATCH TRANSDERM SCH (23:39)
[2019-01-03] MEDS: IPRATROPIUM-ALBUTEROL 3 ML NEB INHALATION PRN (04:20)
[2019-01-03] MEDS: NITROGLYCERIN OINT 1 INCH/GM PACKET TOPICAL SCH ×3 (05:45→17:30)
[2019-01-03] MEDS: MORPHINE SULFATE ER 60 MG TABLET PO SCH ×3 (05:46→20:13)
[2019-01-03] MEDS: LEVOTHYROXINE 50 MCG TAB PO SCH (05:46)
[2019-01-03 06:23] LABS: Glucose,Whole Blood 199 mg/dL (75-99)
[2019-01-03] MEDS: INSULIN ASPART (NovoLOG) 100 UNIT/ML VIAL SQ SCH ×4 (06:41→21:19)
[2019-01-03] MEDS: POLYETHYLENE GLYCOL 3350 17 GM POWD.PACK PO SCH (08:06)
[2019-01-03] MEDS: AMOXIC-POT CLAV 875-125MG 1 EACH TAB PO SCH ×2 (08:08→20:12)
[2019-01-03] MEDS: TAMSULOSIN 0.4 MG CAP.ER.24H PO SCH (08:08)
[2019-01-03] MEDS: SPIRONOLACTONE 25 MG TAB PO SCH (08:08)
[2019-01-03] MEDS: DILTIAZEM CD 240 MG CAP.ER.24H PO SCH (08:08)
[2019-01-03] MEDS: clonazePAM 1 MG TAB PO SCH ×2 (08:08→20:12)
[2019-01-03] MEDS: MONTELUKAST 10 MG TAB PO SCH (08:08)
[2019-01-03] MEDS: NICOTINE 14MG/24HR PATCH TRANSDERM SCH (08:08)
[2019-01-03] MEDS: FUROSEMIDE 20 MG TAB PO SCH (08:08)
[2019-01-03] MEDS: DULoxetine HCL 30 MG CAPSULE.DR PO SCH (08:09)
[2019-01-03] MEDS: ASPIRIN 81 MG PO SCH (08:09)
[2019-01-03] MEDS: FLUCONAZOLE 100 MG TAB PO SCH (08:09)
[2019-01-03] MEDS: RIVAROXABAN 20 MG TAB PO SCH (08:09)
[2019-01-03] MEDS: ATORVASTATIN 20 MG TAB PO SCH (08:09)
[2019-01-03] MEDS: PREGABALIN 50 MG CAP PO SCH ×2 (08:09→20:12)
[2019-01-03] MEDS: NYSTATIN 100,000UNIT/GM CREAM 30 GM TUBE TOPICAL SCH ×2 (08:09→20:13)
[2019-01-03] MEDS: methylPREDNISolone SOD SUCCI 40 MG/ML 1 ML VIAL IV SCH ×3 (08:09→23:07)
[2019-01-03] MEDS: IPRATROPIUM-ALBUTEROL 3 ML NEB INHALATION SCH ×4 (08:37→19:40)
[2019-01-03] MEDS: BUDESONIDE 1 MG/2 ML NEBU INHALATION SCH ×2 (08:37→19:40)
[2019-01-03] MEDS: FORMOTEROL FUMARATE 20 MCG/2 ML NEBU INHALATION SCH ×2 (08:37→19:40)
[2019-01-03 11:34] LABS: Glucose,Whole Blood 168 mg/dL (75-99)
--- NOTE | 2019-01-03 11:54 | P.PN ---
Subjective Progress Note Date: 01/03/19 Principal diagnosis: Shortness of breath, cough, wheezing This is a 63-year-old white female patient with past medical history of COPD, and patient is on home oxygen at 2 L, and maintenance dose prednisone, previous history of CVA/TIA, hypertension, hyperlipidemia, previous history of pulmonary embolism on Xarelto, hypothyroidism, anxiety, and former smoker, who was recently hospitalized at the [facility] and discharged home a week ago for acute exacerbation of COPD. Patient states she was treated with the IV steroids, nebulized treatments and doxycycline, she was discharged home a week ago, however she felt that she did not significantly improve, she was seen in the emergency room at [facility] on 12/30/2018 with complaints of productive cough, difficulty breathing, chills and shakes, patient at that time left AGAINST MEDICAL ADVICE. On 01/01/2019 18 came back for reevaluation with worsening dyspnea, cough, congestion, she states she just couldn't breathe, she is experiencing some chest tightness, she states she is bringing up some foul smelling and foul tasting green colored phlegm. Denied any chest pain, reports some subjective chills, she reports some swelling in her lower extremities, there is significant bruising to her left foot, and patient denies any recent trauma to it. He was found to be in A. fib RVR, she was placed on Cardizem drip, and she has currently converted to sinus rhythm, he was started on IV steroids, empiric antibiotics in the form of Levaquin, breathing treatments, she is on 5 L of O2, she states she at times feel like she is going to , and not leave the hospital. No fever, hemodynamically stable, lung sounds reveal diminished breath sounds with diffuse wheezes, patient does not appear to be in any acute distress. Chest x-ray was reviewed showing a mild persistent plate atelectasis at the left lung base. On 01/03/2019 patient seen in follow-up on selective care unit, patient to be lethargic, but arousable, she is currently on BiPAP, and apparent that she wore the BiPAP support overnight, she states that she is comfortable on a, breathing easier, she states she briefly had it off when her sisters were visiting and she was extremely dyspneic, and she preferred to be placed back on BiPAP, current pressures at 10/5, and FiO2 of 50%. Patient has been afebrile, hemodynamically stable. Antibiotic coverage is now with Augmentin, Levaquin was discontinued, but culture so far shows no growth, and Shannana have been unable to collect a sputum culture, no complains of chest pain, IV steroids and nebulized bronchodilators continue. D-dimer was negative, troponin was negative. Echocardiogram showed preserved left ventricle systolic function, left ventricular hypertrophy, EF of 60-65%, moderate pulmonary hypertension with a PA systolic of 51.3 mmHg. Objective - Vital Signs Vital signs: Vital Signs Temp 97.0 F L 01/03/19 08:00 Pulse 100 01/03/19 09:10 Resp 20 01/03/19 08:00 BP 127/66 01/03/19 08:00 Pulse Ox 98 01/03/19 08:00 Intake & Output 01/02/19 01/03/19 01/03/19 18:59 06:59 18:59 Intake Total 480 120 Output Total 200 Balance 280 120 Weight 75.8 kg Intake: Oral 480 120 Output: Urine 200 Other: # Voids 3 1 1 - Exam GENERAL EXAM: pleasant, 63-year-old white female, on BiPAP support, somnolent, but arouses easily, BiPAP support is 10/5 and FiO2 of 50% HEAD: Normocephalic/atraumatic. EYES: Normal reaction of pupils, equal size. Conjunctiva pink, sclera white. NOSE: Clear with pink turbinates. THROAT: No erythema or exudates. NECK: No masses, no JVD, no thyroid enlargement, no adenopathy. CHEST: No chest wall deformity. Symmetrical expansion. LUNGS: Equal air entry with diffuse expiratory wheezing CVS: Regular rate and rhythm, normal S1 and S2, no gallops, no murmurs, no rubs ABDOMEN: Soft, nontender. No hepatosplenomegaly, normal bowel sounds, no guarding or rigidity. EXTREMITIES: No clubbing, trace lower extremity edema left greater than the right, no cyanosis, 2+ pulses and upper and lower extremities. There are extensive bruises involving the left foot, left lower leg, and to a lesser degree right lower leg, toes on the left foot, and patient denies any recent trauma, he is on chronic anticoagulation MUSCULOSKELETAL: Muscle strength and tone normal. SPINE: No scoliosis or deformity SKIN: No rashes CENTRAL NERVOUS SYSTEM: Alert and oriented -3. No focal deficits, tone is norm al in all 4 extremities. PSYCHIATRIC: Alert and oriented -3. Appropriate affect. Intact judgment and insight. - Labs CBC & Chem 7: 01/01/19 22:05 01/01/19 22:05 Labs: Abnormal Lab Results - Last 24 Hours (Table) 01/02/19 01/03/19 01/03/19 Range/Units 20:51 06:21 11:32 POC Glucose (mg/dL) 223 H 199 H 168 H (75-99) mg/dL Microbiology - Last 24 Hours (Table) 01/01/19 22:05 Blood Culture - Preliminary Blood No Growth after 24 hours Assessment and Plan Plan: Assessment: #1. Acute on chronic hypoxemic respiratory failure secondary to acute exacerbation of chronic obstructive pulmonary disease complicated by tracheobronchitis #2. New-onset A. fib RVR, patient has since converted to sinus rhythm #3. History of pulmonary embolism on Xarelto #4. Recent hospitalization at [facility] for COPD exacer bation, patient was discharged home on accommodation of prednisone and doxycycline #5. Advanced COPD on home oxygen at 3 L, and maintenance dose prednisone #6. Former smoker #7. Hypothyroidism #8. Previous history of CVA #9. Hypertension #10. Hyperlipidemia #11. Anxiety #12. Chronic left leg swelling, and there is bruising involving the left foot, denies any recent trauma #13. Degenerative disc disease #14. Valvular heart disease, severe mitral regurgitation, and moderate pulm onary hypertension with PA systolic of 57 mmHg is seen on the echocardiogram from May 2018 Plan: Continue the IV steroids, continue antibiotics, will obtain a blood gas on BiPAP support, patient appears to be slightly lethargic, although arouses easily, she states she is comfortable on BiPAP, and she actually prefers it right now. Continue with nebulized bronchodilators, she is still quite bronchospastic, not able to bring up much sputum. Afebrile. Continue to closely follow I performed a history & physical examination of the patient and discussed their management with my nurse practitioner, Renee Dior. I reviewed the nurse practitioner's note and agree with the documented findings and plan of care. Lung sounds are positive for diffuse wheezes throughout the lung russell. The findings and the impression was discussed with the patient. I attest to the documentation by the nurse practitioner. Time with Patient: Less than 30
[2019-01-03 12:12] LABS: ABG Base Excess 16.1 mmol/L; ABG Oxygen Saturation 99.3 % (94-97); ABG PH 7.35 (7.35-7.45); ABG PO2 140 mmHg (83-108); ABG TCO2 44 mmol/L (19-24); Allen Test Performed? Yes
--- NOTE | 2019-01-03 12:29 | P.PN ---
Subjective Progress Note Date: 01/03/19 Patient is a 63-year-old female with a past medical history of COPD on home home oxygen, hypertension, dyslipidemia, valvular heart disease, CVA , PE anticoagulated with Xarelto, and current smoker who presented with complaints of shortness of breath. He follows with Dr. Silva in the office. She was r ecently discharged a few days ago after COPD exacerbation. States she continues to have a productive cough with green sputum, low-grade fevers, and shortness of breath. Denies any palpitations or chest pain. Remaining in normal sinus rhythm this morning Objective - Vital Signs Vital signs: Vital Signs Temp 97.0 F L 01/03/19 08:00 Pulse 82 01/03/19 12:00 Resp 18 01/03/19 12:00 BP 129/75 01/03/19 12:00 Pulse Ox 100 01/03/19 12:00 Intake & Output 01/02/19 01/03/19 01/03/19 18:59 06:59 18:59 Intake Total 480 120 Output Total 200 Balance 280 120 Weight 75.8 kg Intake: Oral 480 120 Output: Urine 200 Other: # Voids 3 1 1 - Exam Patient seen and examined sitting up in bed, tachypnic breath sound diminished with diffuse wheezing bilaterally Heart is regular, no audible murmurs No elevated JVD Trace lower extremity edema - Labs CBC & Chem 7: 01/01/19 22:05 01/01/19 22:05 Labs: Abnormal Lab Results - Last 24 Hours (Table) 01/02/19 01/03/19 01/03/19 Range/Units 20:51 06:21 11:32 POC Glucose (mg/dL) 223 H 199 H 168 H (75-99) mg/dL Microbiology - Last 24 Hours (Table) 01/01/19 22:05 Blood Culture - Preliminary Blood No Growth after 24 hours Assessment and Plan Plan: Assessment: #1. Acute on chronic hypoxemic respiratory failure secondary to acute exacerbation of chronic obstructive pulmonary disease complicated by tracheobronchitis #2. New-onset A. fib RVR, patient has since converted to sinus rhythm, paroxysmal #3. History of pulmonary embolism on Xarelto #4. Recent hospitalization at [facility] for COPD exac erbation, patient was discharged home on accommodation of prednisone and doxycycline #5. Advanced COPD on home oxygen at 3 L, and maintenance dose prednisone #6. Former smoker #7. Hypothyroidism #8. Previous history of CVA #9. Hypertension #10. Hyperlipidemia #11. Anxiety #12. Chronic left leg swelling, and there is bruising involving the left foot, denies any recent trauma #13. Degenerative disc disease #14. Valvular heart disease, severe mitral regurgitation, and moderate pu lmonary hypertension with PA systolic of 57 mmHg is seen on the echocardiogram from May 2018 Plan Echocardiogram with Doppler study revealed a normal ejection fraction with persistent moderate to severe mitral regurgitation. From cardiology's perspective, we'll follow this patient along with you now on an as-needed basis only, please don't hesitate to call if you have any questions at all DNP note has been reviewed, I agree with a documented findings and plan of care. Patient was seen and examined.
[2019-01-03 12:30] LABS: ABG HCO3 42 mmol/L (21-25); ABG PCO2 75 mmHg (35-45)
[2019-01-03 16:46] LABS: Glucose,Whole Blood 212 mg/dL (75-99)
[2019-01-03] MEDS ORDERED: FUROSEMIDE 10 MG/ML 4 ML VIAL IV STA (17:18)
[2019-01-03 18:02] LABS: ABG PO2 83 mmHg (83-108); ABG TCO2 47 mmol/L (19-24); Allen Test Performed? Yes
[2019-01-03 18:07] LABS: ABG PCO2 72 mmHg (35-45)
[2019-01-03 18:08] LABS: ABG HCO3 45 mmol/L (21-25)
[2019-01-03] MEDS: oxyCODONE-APAP 10-325MG 1 EACH TAB PO PRN (19:41)
[2019-01-03 21:12] LABS: Glucose,Whole Blood 233 mg/dL (75-99)
--- NOTE | 2019-01-03 21:43 | P.PN ---
Progress Note - Text Progress Note Date: 01/03/19 Chief Complaint: Short of breath History of present complaint: This is a pleasant 63-year-old patient of Dr. Trevor Hamilton. 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 Chronic stable medical conditions include hypertension, hyperlipidemia, mild cognitive impairment, hypothyroid, spinal stenosis, osteoarthritis, severe mitral and moderate tricuspid valve regurgitation. Patient about 2 weeks ago was admitted to [facility]. She is not sure of the diagnosis but it was a long issue. When she was discharged she says she really didn't feel much better. She continues to get progressively short of breath and wheezing. Was bringing up some phlegm green in color. Denies any fever and chills. She also been noticing increasing palpitation and heart skipping and flipping beats. Appetite is gone down. Weak and tired. Does use a cane or a walker. Patient was found to be in atrial fibrillation with rapid ventricular rate. This was initially started on IV antibiotics, IV steroids, IV Cardizem drip and admitted for the same. Today-has converted to sinus rhythm. On the BiPAP. Tired. Breathing a bit better. Had about 50% of her breakfast and about 25% of lunch. Review of systems: Was done for constitutional, cardiovascular, GI, pulmonary. r elevant finding as above Active Medications Albuterol/Ipratropium (Duoneb 0.5 Mg-3 Mg/3 Ml Soln) 3 ml INHALATION RT-QID [facility] Last Admin: 01/03/19 19:40 Dose: 3 ml Documented by: Albuterol/Ipratropium (Duoneb 0.5 Mg-3 Mg/3 Ml Soln) 3 ml INHALATION RT-Q2H PRN PRN Reason: Shortness Of Breath Or Wheezing Last Admin: 01/03/19 04:20 Dose: 3 ml Documented by: Alprazolam (Xanax) 0.5 mg PO QID PRN PRN Reason: Anxiety Last Admin: 01/02/19 13:30 Dose: 0.5 mg Documented by: Amoxicillin/Clavulanate Potassium (Augmentin 875-125) 1 each PO Q12HR [facility] Last Admin: 01/03/19 20:12 Dose: 1 each Documented by: Aspirin (Aspirin) 81 mg PO DAILY [facility] Last Admin: 01/03/19 08:09 Dose: 81 mg Documented by: Atorvastatin Calcium (Lipitor) 20 mg PO DAILY [facility] Last Admin: 01/03/19 08:09 Dose: 20 mg Documented by: Budesonide (Pulmicort) 1 mg INHALATION RT-BID [facility] Last Admin: 01/03/19 19:40 Dose: 1 mg Documented by: Clonazepam (Klonopin) 1 mg PO HS [facility] Last Admin: 01/03/19 20:12 Dose: 1 mg Documented by: Clonazepam (Klonopin) 2 mg PO QAM [facility] Last Admin: 01/03/19 08:08 Dose: 2 mg Documented by: Diltiazem HCl (Cardizem Cd) 240 mg PO DAILY [facility] Last Admin: 01/03/19 08:08 Dose: 240 mg Documented by: Diphenhydramine HCl (Benadryl) 25 mg PO BID PRN PRN Reason: Allergic Reaction Duloxetine HCl (Cymbalta) 60 mg PO DAILY [facility] Last Admin: 01/03/19 08:09 Dose: 60 mg Documented by: Fluconazole (Diflucan) 100 mg PO DAILY [facility] Last Admin: 01/03/19 08:09 Dose: 100 mg Documented by: Formoterol Fumarate (Perforomist) 20 mcg INHALATION RT-BID [facility] Last Admin: 01/03/19 19:40 Dose: 20 mcg Documented by: Furosemide (Lasix) 20 mg PO DAILY@1500 PRN PRN Reason: Edema Furosemide (Lasix) 40 mg PO DAILY [facility] Last Admin: 01/03/19 08:08 Dose: 40 mg Documented by: Insulin Aspart (Novolog) 0 unit SQ [facility]; Protocol Last Admin: 01/03/19 21:19 Dose: 8 unit Documented by: Levothyroxine Sodium (Synthroid) 50 mcg PO DAILY@0630 [facility] Last Admin: 01/03/19 05:46 Dose: 50 mcg Documented by: Methylprednisolone Sodium Succinate (Solu-Medrol) 40 mg IV Q6HR [facility] Last Admin: 01/03/19 17:30 Dose: 40 mg Documented by: Montelukast Sodium (Singulair) 10 mg PO DAILY [facility] Last Admin: 01/03/19 08:08 Dose: 10 mg Documented by: Morphine Sulfate (Ms Contin) 60 mg PO Q8H [facility] Last Admin: 01/03/19 20:13 Dose: 60 mg Documented by: Nicotine (Habitrol 14mg/24hr Patch) 1 patch TRANSDERM DAILY [facility] Last Admin: 01/03/19 08:08 Dose: Not Given Documented by: Nitroglycerin (Nitrostat) 0.4 mg SUBLINGUAL Q5M PRN PRN Reason: Chest Pain Nitroglycerin (Nitro-Bid Oint) 0.5 inch TOPICAL Q6HR [facility] Last Admin: 01/03/19 17:30 Dose: Not Given Documented by: Nystatin (Mycostatin Cream) 1 applic TOPICAL BID [facility] Last Admin: 01/03/19 20:13 Dose: 1 applic Documented by: Oxycodone/Acetaminophen (Percocet 10-325) 1 each PO BID PRN PRN Reason: Breakthrough Pain Last Admin: 01/03/19 19:41 Dose: 1 each Documented by: Polyethylene Glycol (Miralax) 17 gm PO DAILY [facility] Last Admin: 01/03/19 08:06 Dose: 17 gm Documented by: Pregabalin (Lyrica) 150 mg PO BID [facility] Last Admin: 01/03/19 20:12 Dose: 150 mg Documented by: Rivaroxaban (Xarelto) 20 mg PO DAILY [facility] Last Admin: 01/03/19 08:09 Dose: 20 mg Documented by: Spironolactone (Aldactone) 25 mg PO DAILY [facility] Last Admin: 01/03/19 08:08 Dose: 25 mg Documented by: Tamsulosin HCl (Flomax) 0.4 mg PO DAILY [facility] Last Admin: 01/03/19 08:08 Dose: 0.4 mg Documented by: Physical examination: VITAL SIGNS: 98.1, 80, 20, 145/75, 96% on the BiPAPP GENERAL:. sitting up in the bed, using the BiPA EYES: Pupils equal. Conjunctiva normal. HEENT: External appearance of nose and ears normal, oral cavity with white spots in the posterior part. NECK: JVD not raised; masses not palpable. HEART: Heart sounds regular no edema]. LUNGS: Respiratory rate increased, diminished breath sounds prolonged expiration and wheezing, but able to speak in full sentences, excessive muscles okay. ABDOMEN: Soft, nontender, liver spleen not palpable, no masses palpable. PSYCH: Tired but arousable. NEUROLOGICAL: Cranial nerves grossly intact; no facial asymmetry, power and sensation grossly intact. LYMPHATICS: No lymph nodes palpable in the axilla and neck INVESTIGATIONS, reviewed in the clinical context: ABG-pH 7.35 pCO2 75 bicarb 42 Previous testing: White count 11.1 hemoglobin 11.9 platelets 181 potassium 3.8 creatinine 0.54 Troponin I 3 negative EKG tracing personally reviewed by me shows atrial fibrillation with a rapid ventricular rate Chest x-ray film personally reviewed by me-hyperinflation no obvious infiltrate Assessment: -Persistent atrial fibrillation with rapid ventricular rate, chronically on xarelto, now in sinus rhythm -Acute hypercapnic respiratory failure requiring BiPAP -Acute COPD exacerbation in a current smoker, slow to respond -Acute tracheal bronchitis -Acute oropharyngeal candidiasis from use of steroids and antibiotics -Hyperlipidemia -Essential hypertension -Mild cognitive impairment -Hypothyroid -Chronic anxiety depression otherwise specified -Chronic gait dysfunction uses a cane and a walker -Chronic nicotine dependence patient cigarette smoker Plan: Continue with bronchodilators, steroids, BiPAP. Patient back in sinus rhythm. Discussed with the family the bedside. Follow with The consultants. Prognosis guarded
[2019-01-04] MEDS: IPRATROPIUM-ALBUTEROL 3 ML NEB INHALATION PRN ×3 (00:22→23:26)
[2019-01-04] MEDS: methylPREDNISolone SOD SUCCI 40 MG/ML 1 ML VIAL IV SCH ×4 (06:07→23:49)
[2019-01-04] MEDS: LEVOTHYROXINE 50 MCG TAB PO SCH (06:07)
[2019-01-04] MEDS: MORPHINE SULFATE ER 60 MG TABLET PO SCH ×3 (06:07→21:34)
[2019-01-04 06:17] LABS: Glucose,Whole Blood 176 mg/dL (75-99)
[2019-01-04] MEDS: INSULIN ASPART (NovoLOG) 100 UNIT/ML VIAL SQ SCH ×4 (06:46→21:27)
[2019-01-04] MEDS: IPRATROPIUM-ALBUTEROL 3 ML NEB INHALATION SCH ×4 (07:19→19:31)
[2019-01-04] MEDS: BUDESONIDE 1 MG/2 ML NEBU INHALATION SCH ×2 (07:20→19:31)
[2019-01-04] MEDS: FORMOTEROL FUMARATE 20 MCG/2 ML NEBU INHALATION SCH ×2 (07:20→19:31)
[2019-01-04] MEDS: PREGABALIN 50 MG CAP PO SCH ×2 (09:30→21:34)
[2019-01-04] MEDS: ATORVASTATIN 20 MG TAB PO SCH (09:30)
[2019-01-04] MEDS: AMOXIC-POT CLAV 875-125MG 1 EACH TAB PO SCH ×2 (09:30→22:50)
[2019-01-04] MEDS: FLUCONAZOLE 100 MG TAB PO SCH (09:30)
[2019-01-04] MEDS: RIVAROXABAN 20 MG TAB PO SCH (09:30)
[2019-01-04] MEDS: TAMSULOSIN 0.4 MG CAP.ER.24H PO SCH (09:30)
[2019-01-04] MEDS: ASPIRIN 81 MG PO SCH (09:30)
[2019-01-04] MEDS: DULoxetine HCL 30 MG CAPSULE.DR PO SCH (09:30)
[2019-01-04] MEDS: DILTIAZEM CD 240 MG CAP.ER.24H PO SCH (09:31)
[2019-01-04] MEDS: SPIRONOLACTONE 25 MG TAB PO SCH (09:31)
[2019-01-04] MEDS: NICOTINE 14MG/24HR PATCH TRANSDERM SCH (09:31)
[2019-01-04] MEDS: POLYETHYLENE GLYCOL 3350 17 GM POWD.PACK PO SCH (09:31)
[2019-01-04] MEDS: MONTELUKAST 10 MG TAB PO SCH (09:31)
[2019-01-04] MEDS: NYSTATIN 100,000UNIT/GM CREAM 30 GM TUBE TOPICAL SCH ×2 (09:32→21:35)
[2019-01-04] MEDS: FUROSEMIDE 20 MG TAB PO SCH (09:35)
[2019-01-04] MEDS: clonazePAM 1 MG TAB PO SCH (09:36)
[2019-01-04 11:41] LABS: Glucose,Whole Blood 207 mg/dL (75-99)
--- NOTE | 2019-01-04 12:31 | P.PN ---
Subjective Progress Note Date: 01/04/19 Principal diagnosis: Shortness of breath, cough, wheezing This is a 63-year-old white female patient with past medical history of COPD, and patient is on home oxygen at 2 L, and maintenance dose prednisone, previous history of CVA/TIA, hypertension, hyperlipidemia, previous history of pulmonary embolism on Xarelto, hypothyroidism, anxiety, and former smoker, who was recently hospitalized at the [facility] and discharged home a week ago for acute exacerbation of COPD. Patient states she was treated with the IV steroids, nebulized treatments and doxycycline, she was discharged home a week ago, however she felt that she did not significantly improve, she was seen in the emergency room at [facility] on 12/30/2018 with complaints of productive cough, difficulty breathing, chills and shakes, patient at that time left AGAINST MEDICAL ADVICE. On 01/01/2019 18 came back for reevaluation with worsening dyspnea, cough, congestion, she states she just couldn't breathe, she is experiencing some chest tightness, she states she is bringing up some foul smelling and foul tasting green colored phlegm. Denied any chest pain, reports some subjective chills, she reports some swelling in her lower extremities, there is significant bruising to her left foot, and patient denies any recent trauma to it. He was found to be in A. fib RVR, she was placed on Cardizem drip, and she has currently converted to sinus rhythm, he was started on IV steroids, empiric antibiotics in the form of Levaquin, breathing treatments, she is on 5 L of O2, she states she at times feel like she is going to , and not leave the hospital. No fever, hemodynamically stable, lung sounds reveal diminished breath sounds with diffuse wheezes, patient does not appear to be in any acute distress. Chest x-ray was reviewed showing a mild persistent plate atelectasis at the left lung base. On 01/03/2019 patient seen in follow-up on selective care unit, patient to be lethargic, but arousable, she is currently on BiPAP, and apparent that she wore the BiPAP support overnight, she states that she is comfortable on a, breathing easier, she states she briefly had it off when her sisters were visiting and she was extremely dyspneic, and she preferred to be placed back on BiPAP, current pressures at 10/5, and FiO2 of 50%. Patient has been afebrile, hemodynamically stable. Antibiotic coverage is now with Augmentin, Levaquin was discontinued, but culture so far shows no growth, and Lavinia have been unable to collect a sputum culture, no complains of chest pain, IV steroids and nebulized bronchodilators continue. D-dimer was negative, troponin was negative. Echocardiogram showed preserved left ventricle systolic function, left ventricular hypertrophy, EF of 60-65%, moderate pulmonary hypertension with a PA systolic of 51.3 mmHg. On 01/04/2019 patient seen in follow-up on selective care unit, she is awake and alert, although she states she has been more sleepy lately, and she is wondering if it's her Klonopin making her more fatigued and sleepy, currently she is answ ering questions appropriately, she is awake, she is up in the chair, she has been able to ambulate to the bathroom with assistance, tolerated activity early well, she has been wearing BiPAP support most of the night, and intermittently throughout the day, she has been on nasal cannula for meals, still sounds quite bronchospastic, however somewhat improved since admission, she is occasionally bringing up some thick green colored sputum, her current antibiotic coverage is with Augmentin. Culture showed no growth, sputum culture has not been sent yet. Yesterday's blood gases were called in to us, and patient first had a blood gas showing pO2 of 140, pCO2 of 75% and pH of 7.35, this was done and FiO2 of 50% on BiPAP support with pressures of 10 and 5, and her FiO2 was then dropped to 35%, subsequently patient had another repeat blood gas showing pO2 of 83, pCO2 of 72, and pH of 7.40, this was done on 35%, and this is consistent with chronic hypercapnic respiratory failure. Objective - Vital Signs Vital signs: Vital Signs Temp 98.3 F 01/04/19 11:38 Pulse 76 01/04/19 11:38 Resp 16 01/04/19 11:38 BP 123/72 01/04/19 11:38 Pulse Ox 92 L 01/04/19 11:38 Intake & Output 01/03/19 01/04/19 01/04/19 18:59 06:59 18:59 Intake Total 238 540 260 Output Total 600 600 Balance -362 540 -340 Weight 80 kg Intake: IV 20 Invasive Line 2 20 Oral 238 540 240 Output: Urine 600 600 Other: Voiding Method Bedside Commode # Voids 1 1,400 1 - Exam GENERAL EXAM: pleasant, 63-year-old white female, on nasal cannula, intermittent BiPAP support is 10/5 and FiO2 of 35% HEAD: Normocephalic/atraumatic. EYES: Normal reaction of pupils, equal size. Conjunctiva pink, sclera white. NOSE: Clear with pink turbinates. THROAT: No erythema or exudates. NECK: No masses, no JVD, no thyroid enlargement, no adenopathy. CHEST: No chest wall deformity. Symmetrical expansion. LUNGS: Equal air entry with diffuse expiratory wheezing CVS: Regular rate and rhythm, normal S1 and S2, no gallops, no murmurs, no rubs ABDOMEN: Soft, nontender. No hepatosplenomegaly, normal bowel sounds, no guarding or rigidity. EXTREMITIES: No clubbing, trace lower extremity edema left greater than the right, no cyanosis, 2+ pulses and upper and lower extremities. There are extensive bruises involving the left foot, left lower leg, and to a lesser degree right lower leg, toes on the left foot, and patient denies any recent trauma, he is on chronic anticoagulation MUSCULOSKELETAL: Muscle strength and tone normal. SPINE: No scoliosis or deformity SKIN: No rashes CENTRAL NERVOUS SYSTEM: Alert and oriented -3. No focal deficits, tone is normal in all 4 extremities. PSYCHIATRIC: Alert and oriented -3. Appropriate affect. Intact judgment and insight. - Labs CBC & Chem 7: 01/01/19 22:05 01/01/19 22:05 Labs: Abnormal Lab Results - Last 24 Hours (Table) 01/03/19 01/03/19 01/03/19 Range/Units 12:07 16:43 17:59 ABG pCO2 75 H* 72 H* (35-45) mmHg ABG pO2 140 H (83-108) mmHg ABG HCO3 42 H* 45 H* (21-25) mmol/L ABG Total CO2 44 H 47 H (19-24) mmol/L ABG O2 Saturation 99.3 H (94-97) % POC Glucose (mg/dL) 212 H (75-99) mg/dL 10/23/19 10/24/19 10/24/19 Range/Units 21:11 06:16 11:40 ABG pCO2 (35-45) mmHg ABG pO2 (83-108) mmHg ABG HCO3 (21-25) mmol/L ABG Total CO2 (19-24) mmol/L ABG O2 Saturation (94-97) % POC Glucose (mg/dL) 233 H 176 H 207 H (75-99) mg/dL Microbiology - Last 24 Hours (Table) 01/01/19 22:05 Blood Culture - Preliminary Blood No Growth after 48 hours Assessment and Plan Plan: Assessment: #1. Acute on chronic hypoxemic respiratory failure secondary to acute exacerbation of chronic obstructive pulmonary disease complicated by tracheobronchitis #2. Chronic hypercapnic respiratory failure related to advanced COPD #3. New-onset A. fib RVR, patient has since converted to sinus rhythm #4. History of pulmonary embolism on Xarelto #5. Recent hospitalization at [facility] for COPD exacerbation, patient was discharged home on accommodation of prednisone and doxycycline #6. Advanced COPD on home oxygen at 3 L, and maintenance dose prednisone #7. Former smoker #8. Hypothyroidism #9. Previous history of CVA #10. Hypertension #11. Hyperlipidemia #12. Anxiety #13. Chronic left leg swelling, and there is bruising involving the left foot, denies any recent trauma #14. Degenerative disc disease #15. Valvular heart disease, severe mitral regurgitation, and moderate pulmonary hypertension with PA systolic of 57 mmHg is seen on the echocardiogram from May 2018 Plan: Continue current medical management, continue current dose of steroids, antibiotics, send a sputum culture, patient is doing slightly better today, continues to intermittently use BiPAP support, and at bedtime. Blood gases have been reviewed, FiO2 has been dropped to 35%, patient has chronic hypercapnic respiratory failure, she continues BiPAP support intermittently for shortness of breath, and respiratory fatigue. Encouraged the patient to sit up in the chair, deep breathe and cough, she can come off to nasal cannula for meals and i ntermittently as tolerated. I performed a history & physical examination of the patient and discussed their management with my nurse practitioner, Renee Dior. I reviewed the nurse practitioner's note and agree with the documented findings and plan of care. Lung sounds are positive for diffuse wheezes throughout the lung russell. The findings and the impression was discussed with the patient. I attest to the documentation by the nurse practitioner. Time with Patient: Less than 30
[2019-01-04 16:28] LABS: Glucose,Whole Blood 198 mg/dL (75-99)
--- NOTE | 2019-01-04 19:07 | P.PN ---
Progress Note - Text Progress Note Date: 01/04/19 Chief Complaint: Short of breath History of present complaint: This is a pleasant 63-year-old patient of Dr. Trevor Hamilton. 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 Chronic stable medical conditions include hypertension, hyperlipidemia, mild cognitive impairment, hypothyroid, spinal stenosis, osteoarthritis, severe mitral and moderate tricuspid valve regurgitation. Patient about 2 weeks ago was admitted to [facility]. She is not sure of the diagnosis but it was a long issue. When she was discharged she says she really didn't feel much better. She continues to get progressively short of breath and wheezing. Was bringing up some phlegm green in color. Denies any fever and chills. She also been noticing increasing palpitation and heart skipping and flipping beats. Appetite is gone down. Weak and tired. Does use a cane or a walker. Patient was found to be in atrial fibrillation with rapid ventricular rate. This was initially started on IV antibiotics, IV steroids, IV Cardizem drip and admitted for the same. On January 03 patient reported to sinus rhythm. Today-breathing a bit better. Today feeling better. Tired. Sitting upon a bed. Slight cough. No sputum. Review of systems: Was done for constitutional, cardiovascular, GI, pulmonary. relevant finding as above Active Medications Albuterol/Ipratropium (Duoneb 0.5 Mg-3 Mg/3 Ml Soln) 3 ml INHALATION RT-QID [facility] Last Admin: 01/04/19 15:19 Dose: 3 ml Documented by: Albuterol/Ipratropium (Duoneb 0.5 Mg-3 Mg/3 Ml Soln) 3 ml INHALATION RT-Q2H PRN PRN Reason: Shortness Of Breath Or Wheezing Last Admin: 01/04/19 03:57 Dose: 3 ml Documented by: Alprazolam (Xanax) 0.25 mg PO QID PRN PRN Reason: Anxiety Amoxicillin/Clavulanate Potassium (Augmentin 875-125) 1 each PO Q12HR [facility] Last Admin: 01/04/19 09:30 Dose: 1 each Documented by: Aspirin (Aspirin) 81 mg PO DAILY [facility] Last Admin: 01/04/19 09:30 Dose: 81 mg Documented by: Atorvastatin Calcium (Lipitor) 20 mg PO DAILY [facility] Last Admin: 01/04/19 09:30 Dose: 20 mg Documented by: Budesonide (Pulmicort) 1 mg INHALATION RT-BID [facility] Last Admin: 01/04/19 07:20 Dose: 1 mg Documented by: Clonazepam (Klonopin) 0.5 mg PO HS [facility] Clonazepam (Klonopin) 0.5 mg PO QAM [facility] Diltiazem HCl (Cardizem Cd) 240 mg PO DAILY [facility] Last Admin: 01/04/19 09:31 Dose: 240 mg Documented by: Diphenhydramine HCl (Benadryl) 25 mg PO BID PRN PRN Reason: Allergic Reaction Duloxetine HCl (Cymbalta) 60 mg PO DAILY [facility] Last Admin: 01/04/19 09:30 Dose: 60 mg Documented by: Fluconazole (Diflucan) 100 mg PO DAILY [facility] Last Admin: 01/04/19 09:30 Dose: 100 mg Documented by: Formoterol Fumarate (Perforomist) 20 mcg INHALATION RT-BID [facility] Last Admin: 01/04/19 07:20 Dose: 20 mcg Documented by: Furosemide (Lasix) 20 mg PO DAILY@1500 PRN PRN Reason: Edema Furosemide (Lasix) 40 mg PO DAILY [facility] Last Admin: 01/04/19 09:35 Dose: 40 mg Documented by: Insulin Aspart (Novolog) 0 unit SQ [facility]; Protocol Last Admin: 01/04/19 18:41 Dose: 5 unit Documented by: Levothyroxine Sodium (Synthroid) 50 mcg PO DAILY@0630 [facility] Last Admin: 01/04/19 06:07 Dose: 50 mcg Documented by: Methylprednisolone Sodium Succinate (Solu-Medrol) 40 mg IV Q6HR [facility] Last Admin: 01/04/19 18:35 Dose: 40 mg Documented by: Montelukast Sodium (Singulair) 10 mg PO DAILY [facility] Last Admin: 01/04/19 09:31 Dose: 10 mg Documented by: Morphine Sulfate (Ms Contin) 60 mg PO Q8H [facility] Last Admin: 01/04/19 12:52 Dose: 60 mg Documented by: Nicotine (Habitrol 14mg/24hr Patch) 1 patch TRANSDERM DAILY [facility] Last Admin: 01/04/19 09:31 Dose: Not Given Documented by: Nitroglycerin (Nitrostat) 0.4 mg SUBLINGUAL Q5M PRN PRN Reason: Chest Pain Nystatin (Mycostatin Cream) 1 applic TOPICAL BID [facility] Last Admin: 01/04/19 09:32 Dose: Not Given Documented by: Oxycodone/Acetaminophen (Percocet 10-325) 1 each PO BID PRN PRN Reason: Breakthrough Pain Last Admin: 01/03/19 19:41 Dose: 1 each Documented by: Polyethylene Glycol (Miralax) 17 gm PO DAILY [facility] Last Admin: 01/04/19 09:31 Dose: 17 gm Documented by: Pregabalin (Lyrica) 150 mg PO BID [facility] Last Admin: 01/04/19 09:30 Dose: 150 mg Documented by: Rivaroxaban (Xarelto) 20 mg PO DAILY [facility] Last Admin: 01/04/19 09:30 Dose: 20 mg Documented by: Spironolactone (Aldactone) 25 mg PO DAILY [facility] Last Admin: 01/04/19 09:31 Dose: 25 mg Documented by: Tamsulosin HCl (Flomax) 0.4 mg PO DAILY [facility] Last Admin: 01/04/19 09:30 Dose: 0.4 mg Documented by: Physical examination: VITAL SIGNS: 98.3, 76, 16, 123/72, 92% on BiPAP GENERAL:. sitting up in the bed, feeling better today EYES: Pupils equal. Conjunctiva normal. HEENT: External appearance of nose and ears normal, oral cavity with white spots in the posterior part. NECK: JVD not raised; masses not palpable. HEART: Heart sounds regular no edema]. LUNGS: Respiratory rate increased, diminished breath sounds prolonged expiration and wheezing,. ABDOMEN: Soft, nontender, liver spleen not palpable, no masses palpable. PSYCH: More awake today, answering questions NEUROLOGICAL: Cranial nerves grossly intact; no facial asymmetry, power and sensation grossly intact. LYMPHATICS: No lymph nodes palpable in the axilla and neck INVESTIGATIONS, reviewed in the clinical context: Accu-Cheks 233, 176 Previous testing: White count 11.1 hemoglobin 11.9 platelets 181 potassium 3.8 creatinine 0.54 Troponin I 3 negative EKG tracing personally reviewed by me shows atrial fibrillation with a rapid ventricular rate Chest x-ray film personally reviewed by me-hyperinflation no obvious infiltrate Assessment: -Persistent atrial fibrillation with rapid ventricular rate, chronically on xarelto, now in sinus rhythm -Acute hypercapnic respiratory failure requiring BiPAP -Acute COPD exacerbation in a current smoker, slow to respond -Acute tracheal bronchitis -Acute oropharyngeal candidiasis from use of steroids and antibiotics -Hyperlipidemia -Essential hypertension -Mild cognitive impairment -Hypothyroid -Chronic anxiety depression otherwise specified -Chronic gait dysfunction uses a cane and a walker -Chronic nicotine dependence patient cigarette smoker Plan: Patient improving slowly. Has been using the BiPAP. We'll cut back on the dose of Solu-Medrol. Bronchodilators to continue. We'll DC the Benadryl. Prognosis guarded.
[2019-01-04 20:32] LABS: Glucose,Whole Blood 194 mg/dL (75-99)
[2019-01-04] MEDS: clonazePAM 0.5 MG TAB PO SCH (21:33)
[2019-01-05] MEDS: IPRATROPIUM-ALBUTEROL 3 ML NEB INHALATION PRN (03:14)
[2019-01-05 06:04] LABS: Glucose,Whole Blood 190 mg/dL (75-99)
[2019-01-05 06:32] LABS: African American GFR (CKD) >90 (>60 ml/min/1.73 sqM); Blood Urea Nitrogen 21 mg/dL (7-17); Calcium 9.4 mg/dL (8.4-10.2); Chloride 88 mmol/L (98-107); Glucose 201 mg/dL (74-99); Magnesium 2.4 mg/dL (1.6-2.3); Potassium 3.9 mmol/L (3.5-5.1); Sodium 137 mmol/L (137-145)
[2019-01-05] MEDS: MORPHINE SULFATE ER 60 MG TABLET PO SCH ×3 (06:33→23:41)
[2019-01-05] MEDS: INSULIN ASPART (NovoLOG) 100 UNIT/ML VIAL SQ SCH ×4 (06:33→23:07)
[2019-01-05] MEDS: LEVOTHYROXINE 50 MCG TAB PO SCH (06:33)
[2019-01-05 06:39] LABS: Anion Gap 5 mmol/L
[2019-01-05 06:41] LABS: Carbon Dioxide 44 mmol/L (22-30)
[2019-01-05] MEDS: methylPREDNISolone SOD SUCCI 40 MG/ML 1 ML VIAL IV SCH ×2 (07:27→17:28)
[2019-01-05] MEDS: BUDESONIDE 1 MG/2 ML NEBU INHALATION SCH ×2 (08:03→19:49)
[2019-01-05] MEDS: FORMOTEROL FUMARATE 20 MCG/2 ML NEBU INHALATION SCH ×2 (08:03→19:49)
[2019-01-05] MEDS: IPRATROPIUM-ALBUTEROL 3 ML NEB INHALATION SCH ×4 (08:03→19:49)
[2019-01-05] MEDS: POLYETHYLENE GLYCOL 3350 17 GM POWD.PACK PO SCH (08:47)
[2019-01-05] MEDS: clonazePAM 0.5 MG TAB PO SCH ×2 (08:50→23:08)
[2019-01-05] MEDS: SPIRONOLACTONE 25 MG TAB PO SCH (08:50)
[2019-01-05] MEDS: NICOTINE 14MG/24HR PATCH TRANSDERM SCH (08:50)
[2019-01-05] MEDS: TAMSULOSIN 0.4 MG CAP.ER.24H PO SCH (08:50)
[2019-01-05] MEDS: ASPIRIN 81 MG PO SCH (08:51)
[2019-01-05] MEDS: DULoxetine HCL 30 MG CAPSULE.DR PO SCH (08:51)
[2019-01-05] MEDS: PREGABALIN 50 MG CAP PO SCH ×2 (08:51→23:06)
[2019-01-05] MEDS: DILTIAZEM CD 240 MG CAP.ER.24H PO SCH (08:51)
[2019-01-05] MEDS: ATORVASTATIN 20 MG TAB PO SCH (08:51)
[2019-01-05] MEDS: FUROSEMIDE 20 MG TAB PO SCH (08:51)
[2019-01-05] MEDS: NYSTATIN 100,000UNIT/GM CREAM 30 GM TUBE TOPICAL SCH ×2 (08:52→23:24)
[2019-01-05] MEDS: FLUCONAZOLE 100 MG TAB PO SCH (08:52)
[2019-01-05] MEDS: RIVAROXABAN 20 MG TAB PO SCH (08:52)
[2019-01-05] MEDS: AMOXIC-POT CLAV 875-125MG 1 EACH TAB PO SCH ×2 (08:52→23:23)
[2019-01-05] MEDS: MONTELUKAST 10 MG TAB PO SCH (08:52)
[2019-01-05 11:26] LABS: Glucose,Whole Blood 208 mg/dL (75-99)
--- NOTE | 2019-01-05 12:05 | P.PN ---
Subjective Progress Note Date: 01/05/19 Principal diagnosis: Shortness of breath, cough, wheezing This is a 63-year-old white female patient with past medical history of COPD, and patient is on home oxygen at 2 L, and maintenance dose prednisone, previous history of CVA/TIA, hypertension, hyperlipidemia, previous history of pulmonary embolism on Xarelto, hypothyroidism, anxiety, and former smoker, who was recently hospitalized at the [facility] and discharged home a week ago for acute exacerbation of COPD. Patient states she was treated with the IV steroids, nebulized treatments and doxycycline, she was discharged home a week ago, however she felt that she did not significantly improve, she was seen in the emergency room at [facility] on 12/30/2018 with complaints of productive cough, difficulty breathing, chills and shakes, patient at that time left AGAINST MEDICAL ADVICE. On 01/01/2019 18 came back for reevaluation with worsening dyspnea, cough, congestion, she states she just couldn't breathe, she is experiencing some chest tightness, she states she is bringing up some foul smelling and foul tasting green colored phlegm. Denied any chest pain, reports some subjective chills, she reports some swelling in her lower extremities, there is significant bruising to her left foot, and patient denies any recent trauma to it. He was found to be in A. fib RVR, she was placed on Cardizem drip, and she has currently converted to sinus rhythm, he was started on IV steroids, empiric antibiotics in the form of Levaquin, breathing treatments, she is on 5 L of O2, she states she at times feel like she is going to , and not leave the hospital. No fever, hemodynamically stable, lung sounds reveal diminished breath sounds with diffuse wheezes, patient does not appear to be in any acute distress. Chest x-ray was reviewed showing a mild persistent plate atelectasis at the left lung base. On 01/03/2019 patient seen in follow-up on selective care unit, patient to be lethargic, but arousable, she is currently on BiPAP, and apparent that she wore the BiPAP support overnight, she states that she is comfortable on a, breathing easier, she states she briefly had it off when her sisters were visiting and she was extremely dyspneic, and she preferred to be placed back on BiPAP, current pressures at 10/5, and FiO2 of 50%. Patient has been afebrile, hemodynamically stable. Antibiotic coverage is now with Augmentin, Levaquin was discontinued, but culture so far shows no growth, and Lavinia have been unable to collect a sputum culture, no complains of chest pain, IV steroids and nebulized bronchodilators continue. D-dimer was negative, troponin was negative. Echocardiogram showed preserved left ventricle systolic function, left ventricular hypertrophy, EF of 60-65%, moderate pulmonary hypertension with a PA systolic of 51.3 mmHg. On 01/04/2019 patient seen in follow-up on selective care unit, she is awake and alert, although she states she has been more sleepy lately, and she is wondering if it's her Klonopin making her more fatigued and sleepy, currently she is answ ering questions appropriately, she is awake, she is up in the chair, she has been able to ambulate to the bathroom with assistance, tolerated activity early well, she has been wearing BiPAP support most of the night, and intermittently throughout the day, she has been on nasal cannula for meals, still sounds quite bronchospastic, however somewhat improved since admission, she is occasionally bringing up some thick green colored sputum, her current antibiotic coverage is with Augmentin. Culture showed no growth, sputum culture has not been sent yet. Yesterday's blood gases were called in to us, and patient first had a blood gas showing pO2 of 140, pCO2 of 75% and pH of 7.35, this was done and FiO2 of 50% on BiPAP support with pressures of 10 and 5, and her FiO2 was then dropped to 35%, subsequently patient had another repeat blood gas showing pO2 of 83, pCO2 of 72, and pH of 7.40, this was done on 35%, and this is consistent with chronic hypercapnic respiratory failure. On 01/05/2018 patient seen in follow-up on medical surgical floor. She is on BiPAP, with pressures of 12 and 5, and FiO2 of 35%, she is lethargic, but arouses, she states she did not come off the BiPAP to eat because she is having increased shortness of breath, remains on oral antibiotics, IV steroids, and neb ulized bronchodilators. She has been slow to improve. She has had 2 sets of blood gases that demonstrated chronic hypercapnic respiratory failure, without evidence of acute decompensation, we will repeat another set of blood gas this morning, we adjusted her doses of Klonopin and Xanax. Lung sounds positive for diffuse wheezes and rhonchi. Objective - Vital Signs Vital signs: Vital Signs Temp 98.1 F 01/05/19 10:59 Pulse 106 H 01/05/19 10:59 Resp 19 01/05/19 10:59 BP 153/84 01/05/19 10:59 Pulse Ox 95 01/05/19 10:59 Intake & Output 01/04/19 01/05/19 01/05/19 18:59 06:59 18:59 Intake Total 940 120 20 Output Total 600 Balance 340 120 20 Weight 76.4 kg Intake: IV 20 20 Invasive Line 2 20 20 Oral 920 120 Output: Urine 600 Other: Voiding Method Bedside Commode # Voids 1 1 - Exam GENERAL EXAM: Somnolent, but arousable pleasant, 63-year-old white female, on BiPAP support with pressures of 12 and 5 and FiO2 of 35% HEAD: Normocephalic/atraumatic. EYES: Normal reaction of pupils, equal size. Conjunctiva pink, sclera white. NOSE: Clear with pink turbinates. THROAT: No erythema or exudates. NECK: No masses, no JVD, no thyroid enlargement, no adenopathy. CHEST: No chest wall deformity. Symmetrical expansion. LUNGS: Equal air entry with diffuse expiratory wheezing CVS: Regular rate and rhythm, normal S1 and S2, no gallops, no murmurs, no rubs ABDOMEN: Soft, nontender. No hepatosplenomegaly, normal bowel sounds, no guarding or rigidity. EXTREMITIES: No clubbing, trace lower extremity edema left greater than the right, no cyanosis, 2+ pulses and upper and lower extremities. There are exten sive bruises involving the left foot, left lower leg, and to a lesser degree right lower leg, toes on the left foot, and patient denies any recent trauma, he is on chronic anticoagulation MUSCULOSKELETAL: Muscle strength and tone normal. SPINE: No scoliosis or deformity SKIN: No rashes CENTRAL NERVOUS SYSTEM: Alert and oriented -3. No focal deficits, tone is normal in all 4 extremities. PSYCHIATRIC: Alert and oriented -3. Appropriate affect. Intact judgment and insight. - Labs CBC & Chem 7: 01/01/19 22:05 01/05/19 05:59 Labs: Abnormal Lab Results - Last 24 Hours (Table) 01/04/19 01/04/19 01/05/19 Range/Units 16:26 20:30 05:59 Chloride 88 L (98-107) mmol/L Carbon Dioxide 44 H* (22-30) mmol/L BUN 21 H (7-17) mg/dL Creatinine 0.49 L (0.52-1.04) mg/dL Glucose 201 H (74-99) mg/dL POC Glucose (mg/dL) 198 H 194 H (75-99) mg/dL Magnesium 2.4 H (1.6-2.3) mg/dL 01/05/19 01/05/19 Range/Units 06:01 11:25 Chloride (98-107) mmol/L Carbon Dioxide (22-30) mmol/L BUN (7-17) mg/dL Creatinine (0.52-1.04) mg/dL Glucose (74-99) mg/dL POC Glucose (mg/dL) 190 H 208 H (75-99) mg/dL Magnesium (1.6-2.3) mg/dL Microbiology - Last 24 Hours (Table) 01/01/19 22:05 Blood Culture - Preliminary Blood No Growth after 72 hours Assessment and Plan Plan: Assessment: #1. Acute on chronic hypoxemic respiratory failure secondary to acute exacerbation of chronic obstructive pulmonary disease complicated by tracheobronchitis #2. Chronic hypercapnic respiratory failure related to advanced COPD #3. New-onset A. fib RVR, patient has since converted to sinus rhythm #4. History of pulmonary embolism on Xarelto #5. Recent hospitalization at [facility] for COPD exacerbation, patient was discharged home on accommodation of prednisone and doxycycline #6. Advanced COPD on home oxygen at 3 L, and maintenance dose prednisone #7. Former smoker #8. Hypothyroidism #9. Previous history of CVA #10. Hypertension #11. Hyperlipidemia #12. Anxiety #13. Chronic left leg swelling, and there is bruising involving the left foot, denies any recent trauma #14. Degenerative disc disease #15. Valvular heart disease, severe mitral regurgitation, and moderate pulmonary hypertension with PA systolic of 57 mmHg is seen on the echocardiogram from May 2018 Plan: We'll repeat a set of blood gases, patient is somnolent, but arousable, she is currently on BiPAP continuously, she states she did not come off the BiPAP to eat breakfast, so quite bronchospastic and congested, slow to improve, we'll repeat chest x-ray, repeat blood work, continue with steroids, and oral antibiotics I performed a history & physical examination of the patient and discussed their management with my nurse practitioner, Renee Dior. I reviewed the nurse practitioner's note and agree with the documented findings and plan of care. Lung sounds are positive for diffuse wheezes throughout the lung russell. The findings and the impression was discussed with the patient. I attest to the documentation by the nurse practitioner. Time with Patient: Less than 30
--- NOTE | 2019-01-05 12:14 | XR ---
EXAMINATION TYPE: XR chest 1V portable DATE OF EXAM: 01/05/2019 CLINICAL HISTORY: Difficulty breathing progress study. TECHNIQUE: Single AP portable upright view of the chest is obtained. COMPARISON: Chest x-ray from 4 days earlier. FINDINGS: There is chronic emphysematous and parenchymal fibrotic changes bilaterally without suspic ious new focal airspace opacity, pleural effusion, or pneumothorax seen. Cardiac silhouette size is m ildly enlarged with atherosclerotic aorta. Slight underlying scoliotic curvature redemonstrated. IMPRESSION: Overall stable findings, chronic parenchymal changes and mild cardiomegaly without new suspicious acute pulmonary process.
[2019-01-05 12:26] LABS: Anisocytosis Slight; HCT 36.7 % (34.0-46.0); Hypochromasia Slight; MCH 28.3 pg (25.0-35.0); MCHC 32.8 g/dL (31.0-37.0); MCV 86.4 fL (80.0-100.0); Mean Platelet Volume 6.9; Platelet Count 228 k/uL (150-450); RBC 4.25 m/uL (3.80-5.40); RDW 17.2 % (11.5-15.5); WBC 11.2 k/uL (3.8-10.6)
[2019-01-05 12:40] LABS: African American GFR (CKD) >90 (>60 ml/min/1.73 sqM); Blood Urea Nitrogen 20 mg/dL (7-17); Calcium 9.1 mg/dL (8.4-10.2); Chloride 88 mmol/L (98-107); Glucose 196 mg/dL (74-99); Potassium 3.8 mmol/L (3.5-5.1); Sodium 137 mmol/L (137-145)
[2019-01-05 12:55] LABS: Anion Gap 7 mmol/L
[2019-01-05 12:56] LABS: Carbon Dioxide 42 mmol/L (22-30)
[2019-01-05 13:26] LABS: ABG Base Excess 23.9 mmol/L; ABG Oxygen Saturation 95.2 % (94-97); ABG PH 7.42 (7.35-7.45); ABG PO2 73 mmHg (83-108); ABG TCO2 51 mmol/L (19-24); Allen Test Performed? Yes
[2019-01-05 13:36] LABS: ABG HCO3 49 mmol/L (21-25); ABG PCO2 76 mmHg (35-45)
--- NOTE | 2019-01-05 16:33 | P.PN ---
Progress Note - Text Progress Note Date: 01/05/19 Chief Complaint: Short of breath Interval history: This is a pleasant 63-year-old patient of Dr. Trevor Hamilton. Patient's floor hand and Dr. Simpson. Chronic stable medical conditions include hypertension, hyperlipidemia, mild cognitive impairment, hypothyroid, spinal stenosis, osteoarthritis, severe mitral and moderate tricuspid valve regurgitation. Patient about 2 weeks ago was admitted to [facility]. She is not sure of the diagnosis but it was a long issue. When she was discharged she says she really didn't feel much better. She continues to get progressively short of breath and wheezing. Was bringing up some phlegm green in color. Denies any fever and chills. She also been noticing increasing palpitation and heart skipping and flipping beats. Appetite is gone down. Weak and tired. Does use a cane or a walker. Patient was found to be in atrial fibrillation with rapid ventricular rate. This was initially started on IV antibiotics, IV steroids, IV Cardizem drip and admitted for the same. On January 03 patient reverted to sinus rhythm. Today-. Remains rather tired. Using BiPAP intermittently. Barely eating. Does wake up for for questions. Lethargic. He was seen by Dr. Valdez from pulmonary. Patient made no code. Review of systems: Was done for constitutional, cardiovascular, GI, pulmonary. relevant finding as above Active Medications Albuterol/Ipratropium (Duoneb 0.5 Mg-3 Mg/3 Ml Soln) 3 ml INHALATION RT-QID [facility] Last Admin: 01/05/19 16:06 Dose: 3 ml Documented by: Albuterol/Ipratropium (Duoneb 0.5 Mg-3 Mg/3 Ml Soln) 3 ml INHALATION RT-Q2H PRN PRN Reason: Shortness Of Breath Or Wheezing Last Admin: 01/05/19 03:14 Dose: 3 ml Documented by: Alprazolam (Xanax) 0.25 mg PO QID PRN PRN Reason: Anxiety Amoxicillin/Clavulanate Potassium (Augmentin [id number]) 1 each PO Q12HR [facility] Last Admin: 01/05/19 08:52 Dose: 1 each Documented by: Aspirin (Aspirin) 81 mg PO DAILY [facility] Last Admin: 01/05/19 08:51 Dose: 81 mg Documented by: Atorvastatin Calcium (Lipitor) 20 mg PO DAILY [facility] Last Admin: 01/05/19 08:51 Dose: 20 mg Documented by: Budesonide (Pulmicort) 1 mg INHALATION RT-BID [facility] Last Admin: 01/05/19 08:03 Dose: 1 mg Documented by: Clonazepam (Klonopin) 0.5 mg PO HS [facility] Last Admin: 01/04/19 21:33 Dose: Not Given Documented by: Clonazepam (Klonopin) 0.5 mg PO QAM [facility] Last Admin: 01/05/19 08:50 Dose: 0.5 mg Documented by: Diltiazem HCl (Cardizem Cd) 240 mg PO DAILY [facility] Last Admin: 01/05/19 08:51 Dose: 240 mg Documented by: Diphenhydramine HCl (Benadryl) 25 mg PO BID PRN PRN Reason: Allergic Reaction Duloxetine HCl (Cymbalta) 60 mg PO DAILY [facility] Last Admin: 01/05/19 08:51 Dose: 60 mg Documented by: Fluconazole (Diflucan) 100 mg PO DAILY [facility] Last Admin: 01/05/19 08:52 Dose: 100 mg Documented by: Formoterol Fumarate (Perforomist) 20 mcg INHALATION RT-BID [facility] Last Admin: 01/05/19 08:03 Dose: 20 mcg Documented by: Furosemide (Lasix) 40 mg PO DAILY [facility] Last Admin: 01/05/19 08:51 Dose: 40 mg Documented by: Insulin Aspart (Novolog) 0 unit SQ [facility]; Protocol Last Admin: 01/05/19 12:54 Dose: 6 unit Documented by: Levothyroxine Sodium (Synthroid) 50 mcg PO DAILY@0630 [facility] Last Admin: 01/05/19 06:33 Dose: 50 mcg Documented by: Methylprednisolone Sodium Succinate (Solu-Medrol) 40 mg IV Q8HR [facility] Last Admin: 01/05/19 07:27 Dose: 40 mg Documented by: Montelukast Sodium (Singulair) 10 mg PO DAILY [facility] Last Admin: 01/05/19 08:52 Dose: 10 mg Documented by: Morphine Sulfate (Ms Contin) 60 mg PO Q8H [facility] Last Admin: 01/05/19 12:53 Dose: 60 mg Documented by: Nicotine (Habitrol 14mg/24hr Patch) 1 patch TRANSDERM DAILY [facility] Last Admin: 01/05/19 08:50 Dose: Not Given Documented by: Nitroglycerin (Nitrostat) 0.4 mg SUBLINGUAL Q5M PRN PRN Reason: Chest Pain Nystatin (Mycostatin Cream) 1 applic TOPICAL BID [facility] Last Admin: 01/05/19 08:52 Dose: Not Given Documented by: Oxycodone/Acetaminophen (Percocet 10-325) 1 each PO BID PRN PRN Reason: Breakthrough Pain Last Admin: 01/03/19 19:41 Dose: 1 each Documented by: Polyethylene Glycol (Miralax) 17 gm PO DAILY [facility] Last Admin: 01/05/19 08:47 Dose: 17 gm Documented by: Pregabalin (Lyrica) 150 mg PO BID [facility] Last Admin: 01/05/19 08:51 Dose: 150 mg Documented by: Rivaroxaban (Xarelto) 20 mg PO DAILY [facility] Last Admin: 01/05/19 08:52 Dose: 20 mg Documented by: Spironolactone (Aldactone) 25 mg PO DAILY [facility] Last Admin: 01/05/19 08:50 Dose: 25 mg Documented by: Tamsulosin HCl (Flomax) 0.4 mg PO DAILY [facility] Last Admin: 01/05/19 08:50 Dose: 0.4 mg Documented by: Physical examination: VITAL SIGNS: 98.1, 106, 19, 153/84, 95% on CPAP GENERAL:. sitting up in the bed, lethargic but arousable EYES: Pupils equal. Conjunctiva normal. HEENT: External appearance of nose and ears normal, oral cavity with white spots in the posterior part. NECK: JVD not raised; masses not palpable. HEART: Heart sounds regular, no edema]. LUNGS: Respiratory rate increased, diminished breath sounds prolonged expiration ABDOMEN: Soft, nontender, liver spleen not palpable, no masses palpable. PSYCH: Lethargic but arousable does answer questions NEUROLOGICAL: Cranial nerves grossly intact; no facial asymmetry, power and sensation grossly intact. INVESTIGATIONS, reviewed in the clinical context: White count 11.2 hemoglobin 12 potassium 3.8 white count 42 creatinine 0.42 ABG-pH 7.42 pCO2 76 pO2 is 49 Previous testing: White count 11.1 hemoglobin 11.9 platelets 181 potassium 3.8 creatinine 0.54 Troponin I 3 negative EKG tracing personally reviewed by me shows atrial fibrillation with a rapid ventricular rate Chest x-ray film personally reviewed by me-hyperinflation no obvious infiltrate Assessment: -Persistent atrial fibrillation with rapid ventricular rate, chronically on xarelto, now in sinus rhythm -Acute hypoxic and hypercapnic respiratory failure requiring BiPAP, slow to respond -Acute COPD exacerbation in a current smoker, slow to respond -Acute tracheal bronchitis -Acute oropharyngeal candidiasis from use of steroids and antibiotics -Hyperlipidemia -Essential hypertension -Mild cognitive impairment -Hypothyroid -Chronic anxiety depression otherwise specified -Chronic gait dysfunction uses a cane and a walker -Chronic nicotine dependence patient cigarette smoker -CODE STATUS DO NOT RESUSCITATE. Discussed by Dr. Valdez with the patient today Plan: Patient's overall prognosis guarded.. She'll requiring BiPAP. She remained lethargic. Still retaining quite a bit of CO2. Oral intake is not good. Did tell the grossly dry nurse to try shakes. Prognosis not good
[2019-01-05 17:06] LABS: Glucose,Whole Blood 229 mg/dL (75-99)
[2019-01-05 19:51] LABS: Glucose,Whole Blood 215 mg/dL (75-99)
[2019-01-05] MEDS: ALPRAZolam 0.25 MG TAB PO PRN (23:06)
[2019-01-05] MEDS: MORPHINE SULFATE ER 30 MG TABLET PO SCH (23:23)
[2019-01-06] MEDS: methylPREDNISolone SOD SUCCI 40 MG/ML 1 ML VIAL IV SCH ×3 (00:30→16:37)
[2019-01-06] MEDS: IPRATROPIUM-ALBUTEROL 3 ML NEB INHALATION PRN (03:41)
[2019-01-06 07:06] LABS: Glucose,Whole Blood 173 mg/dL (75-99)
[2019-01-06] MEDS: BUDESONIDE 1 MG/2 ML NEBU INHALATION SCH ×2 (07:24→19:24)
[2019-01-06] MEDS: IPRATROPIUM-ALBUTEROL 3 ML NEB INHALATION SCH ×4 (07:24→19:12)
[2019-01-06] MEDS: FORMOTEROL FUMARATE 20 MCG/2 ML NEBU INHALATION SCH ×2 (07:24→19:24)
[2019-01-06] MEDS: PREGABALIN 50 MG CAP PO SCH ×2 (08:06→20:58)
[2019-01-06] MEDS: FUROSEMIDE 20 MG TAB PO SCH (08:06)
[2019-01-06] MEDS: NICOTINE 14MG/24HR PATCH TRANSDERM SCH ×2 (08:07→09:40)
[2019-01-06] MEDS: MONTELUKAST 10 MG TAB PO SCH (08:07)
[2019-01-06] MEDS: ATORVASTATIN 20 MG TAB PO SCH (08:07)
[2019-01-06] MEDS: FLUCONAZOLE 100 MG TAB PO SCH (08:07)
[2019-01-06] MEDS: TAMSULOSIN 0.4 MG CAP.ER.24H PO SCH (08:07)
[2019-01-06] MEDS: MORPHINE SULFATE ER 30 MG TABLET PO SCH ×3 (08:07→23:06)
[2019-01-06] MEDS: LEVOTHYROXINE 50 MCG TAB PO SCH (08:07)
[2019-01-06] MEDS: clonazePAM 0.5 MG TAB PO SCH ×2 (08:07→20:58)
[2019-01-06] MEDS: ASPIRIN 81 MG PO SCH (08:09)
[2019-01-06] MEDS: SPIRONOLACTONE 25 MG TAB PO SCH (08:10)
[2019-01-06] MEDS: DULoxetine HCL 30 MG CAPSULE.DR PO SCH (08:22)
[2019-01-06] MEDS: DILTIAZEM CD 240 MG CAP.ER.24H PO SCH (08:22)
[2019-01-06] MEDS: RIVAROXABAN 20 MG TAB PO SCH (08:22)
[2019-01-06] MEDS: INSULIN ASPART (NovoLOG) 100 UNIT/ML VIAL SQ SCH ×4 (08:22→20:59)
[2019-01-06] MEDS: AMOXIC-POT CLAV 875-125MG 1 EACH TAB PO SCH ×3 (08:22→22:58)
[2019-01-06] MEDS: POLYETHYLENE GLYCOL 3350 17 GM POWD.PACK PO SCH (08:22)
[2019-01-06] MEDS: ALPRAZolam 0.25 MG TAB PO PRN (11:03)
[2019-01-06 11:22] LABS: Anisocytosis Slight; HCT 39.4 % (34.0-46.0); HGB 12.5 gm/dL (11.4-16.0); Hypochromasia Slight; MCH 27.5 pg (25.0-35.0); MCHC 31.7 g/dL (31.0-37.0); MCV 86.7 fL (80.0-100.0); Platelet Count 251 k/uL (150-450); RBC 4.55 m/uL (3.80-5.40); RDW 16.7 % (11.5-15.5)
[2019-01-06 11:41] LABS: ALT 30 U/L (9-52); AST 25 U/L (14-36); African American GFR (CKD) >90 (>60 ml/min/1.73 sqM); Albumin 3.3 g/dL (3.5-5.0); Blood Urea Nitrogen 22 mg/dL (7-17); Calcium 8.9 mg/dL (8.4-10.2); Chloride 85 mmol/L (98-107); Glucose 215 mg/dL (74-99); Potassium 3.6 mmol/L (3.5-5.1); Sodium 139 mmol/L (137-145); Total Bilirubin 0.6 mg/dL (0.2-1.3)
[2019-01-06 11:42] LABS: Alkaline Phosphatase 75 U/L (38-126)
[2019-01-06 11:44] LABS: Band Neutrophils % 8 %; Lymphocytes # (M) 0.55 k/uL (1.0-4.8); Monocytes # (M) 0.44 k/uL (0-1.0); Myelocytes # (M) 0.33 k/uL (0); Myelocytes % 3 %; Neutrophils % (M) 81 %; Nucleated Red Blood Cells 1 /100 WBC (0-0); Total Cells Counted 200
[2019-01-06 11:45] LABS: Poikilocytosis (M) Present
[2019-01-06 11:47] LABS: Anion Gap 7 mmol/L
[2019-01-06 11:47] LABS: Glucose,Whole Blood 202 mg/dL (75-99)
[2019-01-06 11:50] LABS: Carbon Dioxide 47 mmol/L (22-30)
[2019-01-06] MEDS ORDERED: DIGOXIN 250 MCG/ML 2 ML AMP IVP ONE ×2 (12:06→18:00)
--- NOTE | 2019-01-06 12:32 | P.PN ---
Subjective Progress Note Date: 01/06/19 Principal diagnosis: This is a 63-year-old white female patient with past medical history of COPD, and patient is on home oxygen at 2 L, and maintenance dose prednisone, previous history of CVA/TIA, hypertension, hyperlipidemia, previous history of pulmonary embolism on Xarelto, hypothyroidism, anxiety, and former smoker, who was recently hospitalized at the [facility] and discharged home a week ago for acute exacerbation of COPD. Patient states she was treated with the IV steroids, nebulized treatments and doxycycline, she was discharged home a week ago, however she felt that she did not significantly improve, she was seen in the emergency room at [facility] on 12/30/2018 with complaints of productive cough, difficulty breathing, chills and shakes, patient at that time left AGAINST MEDICAL ADVICE. On 01/01/2019 18 came back for reevaluation with worsening dyspnea, cough, congestion, she states she just couldn't breathe, she is experiencing some chest tightness, she states she is bringing up some foul smelling and foul tasting green colored phlegm. Denied any chest pain, reports some subjective chills, she reports some swelling in her lower extremities, there is significant bruising to her left foot, and patient denies any recent trauma to it. He was found to be in A. fib RVR, she was placed on Cardizem drip, and she has currently converted to sinus rhythm, he was started on IV steroids, empiric antibiotics in the form of Levaquin, breathing treatments, she is on 5 L of O2, she states she at times feel like she is going to , and not leave the hospital. No fever, hemodynamically stable, lung sounds reveal diminished breath sounds with diffuse wheezes, patient does not appear to be in any acute distress. Chest x-ray was reviewed showing a mild persistent plate atelectasis at the left lung base. On 01/03/2019 patient seen in follow-up on selective care unit, patient to be lethargic, but arousable, she is currently on BiPAP, and apparent that she wore the BiPAP support overnight, she states that she is comfortable on a, breathing easier, she states she briefly had it off when her sisters were visiting and she was extremely dyspneic, and she preferred to be placed back on BiPAP, current pressures at 10/5, and FiO2 of 50%. Patient has been afebrile, hemodynamically stable. Antibiotic coverage is now with Augmentin, Levaquin was discontinued, but culture so far shows no growth, and Lavinia have been unable to collect a sputum culture, no complains of chest pain, IV steroids and nebulized bronchodilators continue. D-dimer was negative, troponin was negative. Echocardiogram showed preserved left ventricle systolic function, left ventricular hypertrophy, EF of 60-65%, moderate pulmonary hypertension with a PA systolic of 51.3 mmHg. On 01/04/2019 patient seen in follow-up on selective care unit, she is awake and alert, although she states she has been more sleepy lately, and she is wondering if it's her Klonopin making her more fatigued and sleepy, currently she is answering questions appropriately, she is awake, she is up in the chair, she has been able to ambulate to the bathroom with assistance, tolerated activity early well, she has been wearing BiPAP support most of the night, and intermittently throughout the day, she has been on nasal cannula for meals, still sounds quite bronchospastic, however somewhat improved since admission, she is occasionally bringing up some thick green colored sputum, her current antibiotic coverage is with Augmentin. Culture showed no growth, sputum culture has not been sent yet. Yesterday's blood gases were called in to us, and patient first had a blood gas showing pO2 of 140, pCO2 of 75% and pH of 7.35, this was done and FiO2 of 50% on BiPAP support with pressures of 10 and 5, and her FiO2 was then dropped to 35%, subsequently patient had another repeat blood gas showing pO2 of 83, pCO2 of 72, and pH of 7.40, this was done on 35%, and this is consistent with chronic hypercapnic respiratory failure. On 01/05/2018 patient seen in follow-up on medical surgical floor. She is on BiPAP, with pressures of 12 and 5, and FiO2 of 35%, she is lethargic, but arouses, she states she did not come off the BiPAP to eat because she is having increased shortness of breath, remains on oral antibiotics, IV steroids, and nebulized bronchodilators. She has been slow to improve. She has had 2 sets of blood gases that demonstrated chronic hypercapnic respiratory failure, without evidence of acute decompensation, we will repeat another set of blood gas this morning, we adjusted her doses of Klonopin and Xanax. Lung sounds positive for diffuse wheezes and rhonchi. The patient is seen today 01/06/2019 in follow-up on the regular medical floor. She is sitting up at the bedside. She is quite short of breath. She is currently off the BiPAP on 4 L high flow nasal cannula. She's been having issues with tachycardia this morning. Heart rate in the 160s currently, atrial fibrillation. She did utilize BiPAP 12/5 and 35% FiO2 throughout the night. Blood culture reveals no growth. White count 11.0. Hemoglobin 12.5. Creatinine 0.45. Bicarb 47. She'll be transferred to the selective care unit for closer monitoring. Objective - Vital Signs Vital signs: Vital Signs Temp 98.5 F 01/06/19 05:34 Pulse 88 01/06/19 11:03 Resp 13 01/06/19 09:00 BP 156/76 01/06/19 05:34 Pulse Ox 94 L 01/06/19 05:34 Intake & Output 01/05/19 01/06/19 01/06/19 18:59 06:59 18:59 Intake Total 40 Output Total 250 Balance -210 Intake: IV 40 Invasive Line 2 40 Output: Urine 250 Other: Voiding Method Bedside Commode Bedside Commode Bedside Commode # Voids 1 1 - Exam GENERAL EXAM: Alert, 63-year-old female patient, on BiPAP support with pressures of 12 and 5 and FiO2 of 35% alternating with 4 L nasal cannula. HEAD: Normocephalic/atraumatic. EYES: Normal reaction of pupils, equal size. Conjunctiva pink, sclera white. NOSE: Clear with pink turbinates. THROAT: No erythema or exudates. NECK: No masses, no JVD, no thyroid enlargement, no adenopathy. CHEST: No chest wall deformity. Symmetrical expansion. LUNGS: Equal air entry with diffuse expiratory wheezing CVS: Regular rate and rhythm, normal S1 and S2, no gallops, no murmurs, no rubs ABDOMEN: Soft, nontender. No hepatosplenomegaly, normal bowel sounds, no guarding or rigidity. EXTREMITIES: No clubbing, trace lower extremity edema left greater than the right, no cyanosis, 2+ pulses and upper and lower extremities. There are extensive bruises involving the left foot, left lower leg, and to a lesser degree right lower leg, toes on the left foot, and patient denies any recent trauma, he is on chronic anticoagulation MUSCULOSKELETAL: Muscle strength and tone normal. SPINE: No scoliosis or deformity SKIN: No rashes CENTRAL NERVOUS SYSTEM: No focal deficits, tone is normal in all 4 extremities. PSYCHIATRIC: Alert and oriented -3. Appropriate affect. Intact judgment and insight. - Labs CBC & Chem 7: 01/06/19 11:07 01/06/19 11:07 Labs: Abnormal Lab Results - Last 24 Hours (Table) 01/05/19 01/05/19 01/05/19 Range/Units 12:09 12:09 13:18 WBC 11.2 H (3.8-10.6) k/uL RDW 17.2 H (11.5-15.5) % Neutrophils # (Manual) (1.3-7.7) k/uL Lymphocytes # (Manual) (1.0-4.8) k/uL Myelocytes # (Manual) (0) k/uL Nucleated RBCs (0-0) /100 WBC ABG pCO2 76 H* (35-45) mmHg ABG pO2 73 L (83-108) mmHg ABG HCO3 49 H* (21-25) mmol/L ABG Total CO2 51 H (19-24) mmol/L Chloride 88 L (98-107) mmol/L Carbon Dioxide 42 H* (22-30) mmol/L BUN 20 H (7-17) mg/dL Creatinine 0.42 L (0.52-1.04) mg/dL Glucose 196 H (74-99) mg/dL POC Glucose (mg/dL) (75-99) mg/dL Total Protein (6.3-8.2) g/dL Albumin (3.5-5.0) g/dL 01/05/19 01/05/19 01/06/19 Range/Units 17:05 19:49 07:03 WBC (3.8-10.6) k/uL RDW (11.5-15.5) % Neutrophils # (Manual) (1.3-7.7) k/uL Lymphocytes # (Manual) (1.0-4.8) k/uL Myelocytes # (Manual) (0) k/uL Nucleated RBCs (0-0) /100 WBC ABG pCO2 (35-45) mmHg ABG pO2 (83-108) mmHg ABG HCO3 (21-25) mmol/L ABG Total CO2 (19-24) mmol/L Chloride (98-107) mmol/L Carbon Dioxide (22-30) mmol/L BUN (7-17) mg/dL Creatinine (0.52-1.04) mg/dL Glucose (74-99) mg/dL POC Glucose (mg/dL) 229 H 215 H 173 H (75-99) mg/dL Total Protein (6.3-8.2) g/dL Albumin (3.5-5.0) g/dL 01/06/19 01/06/19 01/06/19 Range/Units 11:07 11:07 11:34 WBC 11.0 H (3.8-10.6) k/uL RDW 16.7 H (11.5-15.5) % Neutrophils # (Manual) 9.70 H (1.3-7.7) k/uL Lymphocytes # (Manual) 0.55 L (1.0-4.8) k/uL Myelocytes # (Manual) 0.33 H (0) k/uL Nucleated RBCs 1 H (0-0) /100 WBC ABG pCO2 (35-45) mmHg ABG pO2 (83-108) mmHg ABG HCO3 (21-25) mmol/L ABG Total CO2 (19-24) mmol/L Chloride 85 L (98-107) mmol/L Carbon Dioxide 47 H* (22-30) mmol/L BUN 22 H (7-17) mg/dL Creatinine 0.45 L (0.52-1.04) mg/dL Glucose 215 H (74-99) mg/dL POC Glucose (mg/dL) 202 H (75-99) mg/dL Total Protein 6.0 L (6.3-8.2) g/dL Albumin 3.3 L (3.5-5.0) g/dL Microbiology - Last 24 Hours (Table) 01/01/19 22:05 Blood Culture - Preliminary Blood No Growth after 96 hours Assessment and Plan Assessment: Assessment: #1. Acute on chronic hypoxemic respiratory failure secondary to acute exacerbation of chronic obstructive pulmonary disease complicated by tracheobronchitis #2. Chronic hypercapnic respiratory failure related to advanced COPD #3. New-onset A. fib RVR, remains tachycardic today. #4. History of pulmonary embolism on Xarelto #5. Recent hospitalization at [facility] for COPD exacerbation, patient was discharged home on accommodation of prednisone and doxycycline #6. Advanced COPD on home oxygen at 3 L, and maintenance dose prednisone #7. Former smoker #8. Hypothyroidism #9. Previous history of CVA #10. Hypertension #11. Hyperlipidemia #12. Anxiety #13. Chronic left leg swelling, and there is bruising involving the left foot, denies any recent trauma #14. Degenerative disc disease #15. Valvular heart disease, severe mitral regurgitation, and moderate pulmonary hypertension with PA systolic of 57 mmHg is seen on the echocardiogram from May 2018 Plan: The patient was seen and evaluated by Dr. Morfin. We will transfer her back to the selective care unit for closer monitoring due to her heart rate being in the 160s. We'll continue with BiPAP support as needed. Continue her current medications. Cardiology is on the case as well. Her over all prognosis remains quite guarded and poor. She is a DO NOT RESUSCITATE/DO NOT INTUBATE CODE STATUS. We'll continue to follow and make further recommendations based on her clinical status. I, the cosigning physician, performed a history & physical examination of the patient. Lungs sounds with bilateral end expiratory wheeze, diminished Maintaining good O2 saturations in the 90s on 4 L/m per nasal cannula alternating with BiPAP at 35% FiO2. I discussed the assessment and plan of care with my nurse practitioner, Cynthia Ken. I attest to the above note as dictated by her.
--- NOTE | 2019-01-06 14:13 | P.PN ---
Subjective 63-year-old female was admitted for presumed exacerbation patient is a presently on BiPAP patient is also being treated for A. fib Ventricular rate and patient is being digitalized patient is already on Cardizem and anti-correlation. Patient was transferred from regular floor to [facility] because of respiratory failure and A. fib with rapid ventricular rate with heart rate going up to 160s Review of systems: Unable to obtain as patient is on BiPAP All inpatient medications were reviewed and appropriate changes in these medications as dictated in the interval history and assessment and plan. Objective - Vital Signs Vital signs: Vital Signs Temp 98.5 F 01/06/19 05:34 Pulse 88 01/06/19 11:03 Resp 13 01/06/19 09:00 BP 156/76 01/06/19 05:34 Pulse Ox 94 L 01/06/19 05:34 Intake & Output 01/05/19 01/06/19 01/06/19 18:59 06:59 18:59 Intake Total 40 Output Total 250 Balance -210 Intake: IV 40 Invasive Line 2 40 Output: Urine 250 Other: Voiding Method Bedside Commode Bedside Commode Bedside Commode # Voids 1 1 - Exam PHYSICAL EXAMINATION: GENERAL: The patient is alert and oriented x3, not in any acute distress. Well developed, well nourished. HEENT: Pupils are round and equally reacting to light. EOMI. No scleral icterus. No conjunctival pallor. Normocephalic, atraumatic. No pharyngeal erythema. No thyromegaly. CARDIOVASCULAR: S1 and S2 present. No murmurs, rubs, or gallops. PULMONARY: Diminished bilaterally no significant expiratory wheezing was appreciated. ABDOMEN: Soft, nontender, nondistended, normoactive bowel sounds. No palpable organomegaly. MUSCULOSKELETAL: No joint swelling or deformity. EXTREMITIES: No cyanosis, clubbing, or pedal edema. NEUROLOGICAL: Gross neurological examination did not reveal any focal deficits. SKIN: No rashes. - Labs CBC & Chem 7: 01/06/19 11:07 01/06/19 11:07 Labs: Abnormal Lab Results - Last 24 Hours (Table) 01/05/19 01/05/19 01/06/19 Range/Units 17:05 19:49 07:03 WBC (3.8-10.6) k/uL RDW (11.5-15.5) % Neutrophils # (Manual) (1.3-7.7) k/uL Lymphocytes # (Manual) (1.0-4.8) k/uL Myelocytes # (Manual) (0) k/uL Nucleated RBCs (0-0) /100 WBC Chloride (98-107) mmol/L Carbon Dioxide (22-30) mmol/L BUN (7-17) mg/dL Creatinine (0.52-1.04) mg/dL Glucose (74-99) mg/dL POC Glucose (mg/dL) 229 H 215 H 173 H (75-99) mg/dL Total Protein (6.3-8.2) g/dL Albumin (3.5-5.0) g/dL 01/06/19 01/06/19 01/06/19 Range/Units 11:07 11:07 11:34 WBC 11.0 H (3.8-10.6) k/uL RDW 16.7 H (11.5-15.5) % Neutrophils # (Manual) 9.70 H (1.3-7.7) k/uL Lymphocytes # (Manual) 0.55 L (1.0-4.8) k/uL Myelocytes # (Manual) 0.33 H (0) k/uL Nucleated RBCs 1 H (0-0) /100 WBC Chloride 85 L (98-107) mmol/L Carbon Dioxide 47 H* (22-30) mmol/L BUN 22 H (7-17) mg/dL Creatinine 0.45 L (0.52-1.04) mg/dL Glucose 215 H (74-99) mg/dL POC Glucose (mg/dL) 202 H (75-99) mg/dL Total Protein 6.0 L (6.3-8.2) g/dL Albumin 3.3 L (3.5-5.0) g/dL Microbiology - Last 24 Hours (Table) 01/01/19 22:05 Blood Culture - Preliminary Blood No Growth after 96 hours Assessment and Plan Plan: Acute on chronic hypercapnic respiratory failure secondary to COPD exacerbation patient is presently on BiPAP continued weaned off as tolerated continue with systemic steroids inhalational treatments. Continue with antibiotics. -New-onset A. fib with rapid ventricular rate patient is being digitalized as mentioned above patient is on anticoagulation patient also has history of pulmonary embolism -History of unremarkable -Hypothyroidism -Hypertension --Hyperlipidemia -Anxiety disorder -Severe mitral regurgitation with moderate pulmonary hypertension with RVSP of 57 For above-mentioned chronic medical problems patient will be resumed and continued on appropriate home medications.
[2019-01-06] MEDS: SODIUM CHLORIDE 0.9% 1,000 ML IV SCH (14:22)
[2019-01-06] MEDS: NYSTATIN 100,000UNIT/GM CREAM 30 GM TUBE TOPICAL SCH (14:23)
[2019-01-06 16:56] LABS: Glucose,Whole Blood 86 mg/dL (75-99)
--- NOTE | 2019-01-06 17:48 | P.PN ---
Subjective Progress Note Date: 01/06/19 This is a 63-year-old female with history of COPD on home oxygen, hypertension, dyslipidemia and CVA. Patient also has a history of PE and anticoagulated with Xarelto. She is being treated for COPD exacerbation. Patient was on the medical floor. She went into atrial fibrillation with rapid ventricular response. Patient was transferred to selective care/ICU. Patient is sleepy at this time and has BiPAP machine. Doesn't appear to be in acute distress. She was given IV Lanoxin. She seemed to be converting to sinus rhythm intermittently. Heart rate is in the 80s to 90s. We'll continue with current medical therapy Objective - Vital Signs Vital signs: Vital Signs Temp 97.9 F 01/06/19 16:00 Pulse 86 01/06/19 16:30 Resp 17 01/06/19 16:30 BP 148/65 01/06/19 16:30 Pulse Ox 92 L 01/06/19 16:30 Intake & Output 01/05/19 01/06/19 01/06/19 18:59 06:59 18:59 Intake Total 40 190 Output Total 250 1550 Balance -210 -1360 Intake: IV 40 Invasive Line 2 40 Intake, IV Titration 190 Amount Sodium Chloride 0.9% 1, 190 000 ml @ 75 mls/hr IV . [id number] [facility] Rx#:[id number] Output: Urine 250 1550 Other: Voiding Method Bedside Commode Bedside Commode Indwelling Catheter # Voids 1 1 - Exam GENERAL EXAM: Patient is sleepy but arousable. See has BiPAP machine on HEENT: Normocephalic. Normal reaction of pupils, equal size, normal range of exts alert and oriented and doesn't appear to be in any acute distressraocular motion. No erythema or exudates in the throat. NECK: No masses, no nuchal rigidity. CHEST: No chest wall deformity. LUNGS: The minutes breath sounds HEART: Distant heart sounds ABDOMEN: No hepatosplenomegaly, normal bowel sounds, no guarding or rigidity. SKIN: No rashes CENTRAL NERVOUS SYSTEM: No focal deficits. EXTREMITIES: No cyanosis, clubbing or edema. - Labs CBC & Chem 7: 01/06/19 11:07 01/06/19 11:07 Labs: Abnormal Lab Results - Last 24 Hours (Table) 01/05/19 01/06/1919 Range/Units 19:49 07:03 11:07 WBC 11.0 H (3.8-10.6) k/uL RDW 16.7 H (11.5-15.5) % Neutrophils # (Manual) 9.70 H (1.3-7.7) k/uL Lymphocytes # (Manual) 0.55 L (1.0-4.8) k/uL Myelocytes # (Manual) 0.33 H (0) k/uL Nucleated RBCs 1 H (0-0) /100 WBC Chloride (98-107) mmol/L Carbon Dioxide (22-30) mmol/L BUN (7-17) mg/dL Creatinine (0.52-1.04) mg/dL Glucose (74-99) mg/dL POC Glucose (mg/dL) 215 H 173 H (75-99) mg/dL Plasma Lactic Acid Shailesh (0.7-2.0) mmol/L Total Protein (6.3-8.2) g/dL Albumin (3.5-5.0) g/dL 01/06/19 01/06/19 01/06/19 Range/Units 11:07 11:34 16:58 WBC (3.8-10.6) k/uL RDW (11.5-15.5) % Neutrophils # (Manual) (1.3-7.7) k/uL Lymphocytes # (Manual) (1.0-4.8) k/uL Myelocytes # (Manual) (0) k/uL Nucleated RBCs (0-0) /100 WBC Chloride 85 L (98-107) mmol/L Carbon Dioxide 47 H* (22-30) mmol/L BUN 22 H (7-17) mg/dL Creatinine 0.45 L (0.52-1.04) mg/dL Glucose 215 H (74-99) mg/dL POC Glucose (mg/dL) 202 H (75-99) mg/dL Plasma Lactic Acid Shailesh 0.6 L (0.7-2.0) mmol/L Total Protein 6.0 L (6.3-8.2) g/dL Albumin 3.3 L (3.5-5.0) g/dL Microbiology - Last 24 Hours (Table) 01/01/19 22:05 Blood Culture - Preliminary Blood No Growth after 96 hours Assessment and Plan (1) Acute exacerbation of chronic obstructive airways disease Current Visit: Yes Status: Acute Code(s): J44.1 - CHRONIC OBSTRUCTIVE PULMONARY DISEASE W (ACUTE) EXACERBATION SNOMED Code(s): 056929639 (2) Atrial fibrillation with rapid ventricular response Current Visit: Yes Status: Acute Code(s): I48.91 - UNSPECIFIED ATRIAL FIBRILLATION SNOMED Code(s): 190807177018819 (3) Bronchitis Current Visit: Yes Status: Acute Code(s): J40 - BRONCHITIS, NOT SPECIFIED ACUTE OR CHRONIC SNOMED Code(s): 01524851 Plan: I'll continue with her pro Cardizem. I'll initiate her on IV Lanoxin and may support her on long-term Lanoxin. Rest of the management as for the stippler
[2019-01-06] MEDS ORDERED: MORPHINE SULFATE 2 MG/ML SYRINGE IVP PRN (19:38)
[2019-01-06] MEDS: KETOROLAC 30 MG/ML 1 ML VIAL IVP SCH (20:22)
[2019-01-06 20:50] LABS: Glucose,Whole Blood 184 mg/dL (75-99)
[2019-01-07] MEDS: methylPREDNISolone SOD SUCCI 40 MG/ML 1 ML VIAL IV SCH ×4 (00:42→23:16)
[2019-01-07] MEDS: KETOROLAC 30 MG/ML 1 ML VIAL IVP SCH ×5 (00:45→23:15)
[2019-01-07] MEDS: NYSTATIN 100,000UNIT/GM CREAM 30 GM TUBE TOPICAL SCH ×3 (00:48→21:02)
[2019-01-07] MEDS: SODIUM CHLORIDE 0.9% 1,000 ML IV SCH ×2 (03:15→17:10)
[2019-01-07] MEDS: LORazepam 2 MG/ML INJ IV PRN (04:28)
[2019-01-07] MEDS ORDERED: DIGOXIN 250 MCG/ML 2 ML AMP IVP ONE (04:46)
[2019-01-07 05:13] LABS: African American GFR (CKD) >90 (>60 ml/min/1.73 sqM); Blood Urea Nitrogen 22 mg/dL (7-17); Calcium 8.7 mg/dL (8.4-10.2); Chloride 84 mmol/L (98-107); Glucose 188 mg/dL (74-99); Potassium 3.5 mmol/L (3.5-5.1); Sodium 137 mmol/L (137-145)
[2019-01-07 05:20] LABS: Anion Gap 5 mmol/L; Anisocytosis Slight; Basophils # (A) 0.1 k/uL (0-0.2); Basophils % (A) 1 %; Eosinophils % (A) 0 %; HCT 40.1 % (34.0-46.0); HGB 12.7 gm/dL (11.4-16.0); Hypochromasia Slight; Lymphocytes # (A) 0.1 k/uL (1.0-4.8); Lymphocytes % (A) 1 %; MCH 27.2 pg (25.0-35.0); MCHC 31.5 g/dL (31.0-37.0); MCV 86.2 fL (80.0-100.0); Mean Platelet Volume 5.8; Monocytes # (A) 0.5 k/uL (0-1.0); Monocytes % (A) 4 %; Neutrophils # (A) 11.4 k/uL (1.3-7.7); Neutrophils % (A) 93 %; Platelet Count 269 k/uL (150-450); RBC 4.65 m/uL (3.80-5.40); RDW 16.7 % (11.5-15.5); WBC 12.3 k/uL (3.8-10.6)
[2019-01-07 05:22] LABS: Carbon Dioxide 48 mmol/L (22-30)
[2019-01-07] MEDS: INSULIN ASPART (NovoLOG) 100 UNIT/ML VIAL SQ SCH ×4 (07:01→21:03)
[2019-01-07 07:09] LABS: Glucose,Whole Blood 178 mg/dL (75-99)
[2019-01-07] MEDS: IPRATROPIUM-ALBUTEROL 3 ML NEB INHALATION SCH ×4 (07:14→19:06)
[2019-01-07] MEDS: BUDESONIDE 1 MG/2 ML NEBU INHALATION SCH ×2 (07:14→19:06)
[2019-01-07] MEDS: FORMOTEROL FUMARATE 20 MCG/2 ML NEBU INHALATION SCH ×2 (07:14→19:06)
[2019-01-07] MEDS ORDERED: Potassium Replacement Protocol 1 EACH MISC MISCELLANE PRN (07:21)
[2019-01-07] MEDS ORDERED: POTASSIUM BICARBONATE/CIT AC 20 MEQ TABLET.EFF NG-TUBE SCH (08:00)
--- NOTE | 2019-01-07 09:37 | P.PN ---
Subjective Progress Note Date: 01/07/19 This is a 63-year-old female with history of COPD on home oxygen, hypertension, dyslipidemia and CVA. Patient also has a history of PE and anticoagulated with Xarelto. She is being treated for COPD exacerbation. Patient was on the medical floor. She went into atrial fibrillation with rapid ventricular response. Patient was transferred to selective care/ICU. Patient is sleepy at this time and has BiPAP machine. Doesn't appear to be in acute distress. She was given IV Lanoxin. She seemed to be converting to sinus rhythm intermittently. Heart rate is in the 80s to 90s. We'll continue with current medical therapy. 01/07/2019: Patient primary status remained stable. Patient had bouts of atrial fibrillation with rapid and corresponds. A recent dose of Lanoxin 0.125 was given today. Currently she is sinus rhythm. We'll put her on Lanoxin 0.125 mg by mouth daily. Get a digoxin level on Tuesday Objective - Vital Signs Vital signs: Vital Signs Temp 98.6 F 01/07/19 04:00 Pulse 100 01/07/19 07:37 Resp 22 01/07/19 06:00 BP 165/96 01/07/19 06:00 Pulse Ox 93 L 01/07/19 06:00 Intake & Output 01/06/19 01/07/19 01/07/19 18:59 06:59 18:59 Intake Total 340 975 75 Output Total 1675 550 225 Balance -1335 425 -150 Weight 73.3 kg Intake: IV 900 75 Sodium Chloride 0.9% 1, 900 75 000 ml @ 75 mls/hr IV . [id number] [facility] Rx#:[id number] Intake, IV Titration 340 75 Amount Sodium Chloride 0.9% 1, 340 75 000 ml @ 75 mls/hr IV . [id number] [facility] Rx#:[id number] Output: Urine 1675 550 225 Other: Voiding Method Indwelling Catheter Indwelling Catheter Indwelling Catheter - Exam GENERAL EXAM: Patient is sleepy but arousable. See has BiPAP machine on HEENT: Normocephalic. Normal reaction of pupils, equal size, normal range of exts alert and oriented and doesn't appear to be in any acute distressraocular motion. No erythema or exudates in the throat. NECK: No masses, no nuchal rigidity. CHEST: No chest wall deformity. LUNGS: The minutes breath sounds HEART: Distant heart sounds ABDOMEN: No hepatosplenomegaly, normal bowel sounds, no guarding or rigidity. SKIN: No rashes CENTRAL NERVOUS SYSTEM: No focal deficits. EXTREMITIES: No cyanosis, clubbing or edema. - Labs CBC & Chem 7: 01/07/19 04:53 01/07/19 04:53 Labs: Abnormal Lab Results - Last 24 Hours (Table) 01/06/19 01/06/19 01/06/19 Range/Units 11:07 11:07 11:34 WBC 11.0 H (3.8-10.6) k/uL RDW 16.7 H (11.5-15.5) % Neutrophils # (1.3-7.7) k/uL Neutrophils # (Manual) 9.70 H (1.3-7.7) k/uL Lymphocytes # (1.0-4.8) k/uL Lymphocytes # (Manual) 0.55 L (1.0-4.8) k/uL Myelocytes # (Manual) 0.33 H (0) k/uL Nucleated RBCs 1 H (0-0) /100 WBC Chloride 85 L (98-107) mmol/L Carbon Dioxide 47 H* (22-30) mmol/L BUN 22 H (7-17) mg/dL Creatinine 0.45 L (0.52-1.04) mg/dL Glucose 215 H (74-99) mg/dL POC Glucose (mg/dL) 202 H (75-99) mg/dL Plasma Lactic Acid Shailesh (0.7-2.0) mmol/L Total Protein 6.0 L (6.3-8.2) g/dL Albumin 3.3 L (3.5-5.0) g/dL 01/06/19 01/06/19 01/07/19 Range/Units 16:58 20:39 04:53 WBC 12.3 H (3.8-10.6) k/uL RDW 16.7 H (11.5-15.5) % Neutrophils # 11.4 H (1.3-7.7) k/uL Neutrophils # (Manual) (1.3-7.7) k/uL Lymphocytes # 0.1 L (1.0-4.8) k/uL Lymphocytes # (Manual) (1.0-4.8) k/uL Myelocytes # (Manual) (0) k/uL Nucleated RBCs (0-0) /100 WBC Chloride (98-107) mmol/L Carbon Dioxide (22-30) mmol/L BUN (7-17) mg/dL Creatinine (0.52-1.04) mg/dL Glucose (74-99) mg/dL POC Glucose (mg/dL) 184 H (75-99) mg/dL Plasma Lactic Acid Shailesh 0.6 L (0.7-2.0) mmol/L Total Protein (6.3-8.2) g/dL Albumin (3.5-5.0) g/dL 01/07/19 01/07/19 Range/Units 04:53 06:47 WBC (3.8-10.6) k/uL RDW (11.5-15.5) % Neutrophils # (1.3-7.7) k/uL Neutrophils # (Manual) (1.3-7.7) k/uL Lymphocytes # (1.0-4.8) k/uL Lymphocytes # (Manual) (1.0-4.8) k/uL Myelocytes # (Manual) (0) k/uL Nucleated RBCs (0-0) /100 WBC Chloride 84 L (98-107) mmol/L Carbon Dioxide 48 H* (22-30) mmol/L BUN 22 H (7-17) mg/dL Creatinine 0.43 L (0.52-1.04) mg/dL Glucose 188 H (74-99) mg/dL POC Glucose (mg/dL) 178 H (75-99) mg/dL Plasma Lactic Acid Shailesh (0.7-2.0) mmol/L Total Protein (6.3-8.2) g/dL Albumin (3.5-5.0) g/dL Microbiology - Last 24 Hours (Table) 01/01/19 22:05 Blood Culture - Preliminary Blood No Growth after 120 hours Assessment and Plan (1) Acute exacerbation of chronic obstructive airways disease Current Visit: Yes Status: Acute Code(s): J44.1 - CHRONIC OBSTRUCTIVE PUL MONARY DISEASE W (ACUTE) EXACERBATION SNOMED Code(s): 881069908 (2) Atrial fibrillation with rapid ventricular response Current Visit: Yes Status: Acute Code(s): I48.91 - UNSPECIFIED ATRIAL FIBRILLATION SNOMED Code(s): 305674962498459 (3) Bronchitis Current Visit: Yes Status: Acute Code(s): J40 - BRONCHITIS, NOT SPECIFIED ACUTE OR CHRONIC SNOMED Code(s): 72757465 Plan: Continue current medical therapy. We'll start patient on Lanoxin 0.125 mg daily. Lanoxin level on Tuesday
[2019-01-07] MEDS: POTASSIUM BICARBONATE/CIT AC 20 MEQ TABLET.EFF NG-TUBE SCH ×4 (09:49→19:02)
[2019-01-07] MEDS: MORPHINE SULFATE ER 30 MG TABLET PO SCH ×3 (09:49→22:52)
[2019-01-07] MEDS: LEVOTHYROXINE 50 MCG TAB PO SCH (09:49)
[2019-01-07] MEDS: NICOTINE 14MG/24HR PATCH TRANSDERM SCH (09:50)
[2019-01-07] MEDS: FLUCONAZOLE 100 MG TAB PO SCH (09:50)
[2019-01-07] MEDS: FUROSEMIDE 20 MG TAB PO SCH (09:50)
[2019-01-07] MEDS: MONTELUKAST 10 MG TAB PO SCH (09:50)
[2019-01-07] MEDS: DULoxetine HCL 60 MG CAPSULE.DR PO SCH (09:50)
[2019-01-07] MEDS: clonazePAM 0.5 MG TAB PO SCH ×2 (09:50→21:00)
[2019-01-07] MEDS: DILTIAZEM CD 240 MG CAP.ER.24H PO SCH (09:50)
[2019-01-07] MEDS: POLYETHYLENE GLYCOL 3350 17 GM POWD.PACK PO SCH (09:50)
[2019-01-07] MEDS: ATORVASTATIN 20 MG TAB PO SCH (09:50)
[2019-01-07] MEDS: ASPIRIN 81 MG PO SCH (09:50)
[2019-01-07] MEDS: TAMSULOSIN 0.4 MG CAP.ER.24H PO SCH (09:51)
[2019-01-07] MEDS: DIGOXIN 250 MCG/ML 2 ML AMP IVP SCH (09:51)
[2019-01-07] MEDS: RIVAROXABAN 20 MG TAB PO SCH (09:51)
[2019-01-07] MEDS: SPIRONOLACTONE 25 MG TAB PO SCH (09:51)
[2019-01-07] MEDS: AMOXIC-POT CLAV 875-125MG 1 EACH TAB PO SCH (09:55)
[2019-01-07] MEDS: PREGABALIN 50 MG CAP PO SCH ×2 (09:55→21:01)
[2019-01-07] MEDS: ALPRAZolam 0.25 MG TAB PO PRN (10:07)
--- NOTE | 2019-01-07 11:00 | P.PN ---
Subjective Progress Note Date: 01/07/19 Principal diagnosis: Acute on chronic hypoxic and hypercapnic respiratory failure secondary to acute exacerbation of chronic obstructive pulmonary disease. This is a 63-year-old white female patient with past medical history of COPD, and patient is on home oxygen at 2 L, and maintenance dose prednisone, previous history of CVA/TIA, hypertension, hyperlipidemia, previous history of pulmonary embolism on Xarelto, hypothyroidism, anxiety, and former smoker, who was recently hospitalized at the [facility] and discharged home a week ago for acute exacerbation of COPD. Patient states she was treated with the IV steroids, nebulized treatments and doxycycline, she was discharged home a week ago, however she felt that she did not significantly improve, she was seen in the emergency room at [facility] on 12/30/2018 with complaints of productive cough, difficulty breathing, chills and shakes, patient at that time left AGAINST MEDICAL ADVICE. On 01/01/2019 18 came back for reevaluation with worsening dyspnea, cough, congestion, she states she just couldn't breathe, she is experiencing some chest tightness, she states she is bringing up some foul smelling and foul tasting green colored phlegm. Denied any chest pain, reports some subjective chills, she reports some swelling in her lower extremities, there is significant bruising to her left foot, and patient denies any recent trauma to it. He was found to be in A. fib RVR, she was placed on Cardizem drip, and she has currently converted to sinus rhythm, he was started on IV steroids, empiric antibiotics in the form of Levaquin, breathing treatments, she is on 5 L of O2, she states she at times feel like she is going to , and not leave the hospital. No fever, hemodynamically stable, lung sounds reveal diminished breath sounds with diffuse wheezes, patient does not appear to be in any acute distress. Chest x-ray was reviewed showing a mild persistent plate atelectasis at the left lung base. On 01/03/2019 patient seen in follow-up on selective care unit, patient to be lethargic, but arousable, she is currently on BiPAP, and apparent that she wore the BiPAP support overnight, she states that she is comfortable on a, breathing easier, she states she briefly had it off when her sisters were visiting and she was extremely dyspneic, and she preferred to be placed back on BiPAP, current pressures at 10/5, and FiO2 of 50%. Patient has been afebrile, hemodynamically stable. Antibiotic coverage is now with Augmentin, Levaquin was discontinued, but culture so far shows no growth, and Lavinia have been unable to collect a sputum culture, no complains of chest pain, IV steroids and nebulized bronchodilators continue. D-dimer was negative, troponin was negative. Echocardiogram showed preserved left ventricle systolic function, left ventricular hypertrophy, EF of 60-65%, moderate pulmonary hypertension with a PA systolic of 51.3 mmHg. On 01/04/2019 patient seen in follow-up on selective care unit, she is awake and alert, although she states she has been more sleepy lately, and she is wondering if it's her Klonopin making her more fatigued and sleepy, currently she is answe ring questions appropriately, she is awake, she is up in the chair, she has been able to ambulate to the bathroom with assistance, tolerated activity early well, she has been wearing BiPAP support most of the night, and intermittently throughout the day, she has been on nasal cannula for meals, still sounds quite bronchospastic, however somewhat improved since admission, she is occasionally bringing up some thick green colored sputum, her current antibiotic coverage is with Augmentin. Culture showed no growth, sputum culture has not been sent yet. Yesterday's blood gases were called in to us, and patient first had a blood gas showing pO2 of 140, pCO2 of 75% and pH of 7.35, this was done and FiO2 of 50% on BiPAP support with pressures of 10 and 5, and her FiO2 was then dropped to 35%, subsequently patient had another repeat blood gas showing pO2 of 83, pCO2 of 72, and pH of 7.40, this was done on 35%, and this is consistent with chronic hypercapnic respiratory failure. On 01/05/2018 patient seen in follow-up on medical surgical floor. She is on BiPAP, with pressures of 12 and 5, and FiO2 of 35%, she is lethargic, but arouses, she states she did not come off the BiPAP to eat because she is having increased shortness of breath, remains on oral antibiotics, IV steroids, and nebulized bronchodilators. She has been slow to improve. She has had 2 sets of blood gases that demonstrated chronic hypercapnic respiratory failure, without evidence of acute decompensation, we will repeat another set of blood gas this morning, we adjusted her doses of Klonopin and Xanax. Lung sounds positive for diffuse wheezes and rhonchi. The patient is seen today 01/06/2019 in follow-up on the regular medical floor. She is sitting up at the bedside. She is quite short of breath. She is c urrently off the BiPAP on 4 L high flow nasal cannula. She's been having issues with tachycardia this morning. Heart rate in the 160s currently, atrial fibrillation. She did utilize BiPAP 12/5 and 35% FiO2 throughout the night. Blood culture reveals no growth. White count 11.0. Hemoglobin 12.5. Creatinine 0.45. Bicarb 47. She'll be transferred to the selective care unit for closer monitoring. Patient was reevaluated today on 01/07/2019, she is presently in the ICU as an overflow from selective. I moved the patient yesterday to selective mostly because of her poorly controlled cardiac arrhythmia/atrial fibrillation with RVR. Being followed by cardiology, presently on digoxin, she is also on Cardizem. She is off and on BiPAP, and today I cut down her FiO2 to 30%. Remains on 12/5/BiPAP. Slight improvement since yesterday, however her cardiac rhythm seems to be the major issue right now. CBC is relatively normal basic metabolic profile is normal bicarb is 48 which is expected renal profile is normal. Patient feels about the same, she is almost BiPAP dependent, can get he r off BiPAP. She will tolerate only no more than 15 minutes on nasal cannula. Objective - Vital Signs Vital signs: Vital Signs Temp 98.6 F 01/07/19 04:00 Pulse 100 01/07/19 07:37 Resp 22 01/07/19 06:00 BP 165/96 01/07/19 06:00 Pulse Ox 93 L 01/07/19 06:00 Intake & Output 01/06/19 01/07/19 01/07/19 18:59 06:59 18:59 Intake Total 340 975 75 Output Total 1675 550 225 Balance -1335 425 -150 Weight 73.3 kg 73.3 kg Intake: IV 900 75 Sodium Chloride 0.9% 1, 900 75 000 ml @ 75 mls/hr IV . [id number] [facility] Rx#:[id number] Intake, IV Titration 340 75 Amount Sodium Chloride 0.9% 1, 340 75 000 ml @ 75 mls/hr IV . [id number] [facility] Rx#:[id number] Output: Urine 1675 550 225 Other: Voiding Method Indwelling Catheter Indwelling Catheter Indwelling Catheter - Exam GENERAL EXAM: Alert, 63-year-old female patient, in no distress, maintained on BiPAP this morning. 12/5 and 30%. HEENT: PERRLA, EOMI, no icterus. CHEST: No chest wall deformity. Symmetrical expansion. LUNGS: Diminished breath sounds at the bases no crackles or rhonchi or wheezes. CVS: Irregular irregular rhythm. Tachycardic., normal S1 and S2, no gallops, no murmurs, no rubs ABDOMEN: Soft, nontender. No hepatosplenomegaly, normal bowel sounds, no guarding or rigidity. EXTREMITIES: No clubbing, trace lower extremity edema left greater than the right, no cyanosis, 2+ pulses and upper and lower extremities. Scattered bruises noted bilaterally. Mostly related to anticoagulation therapy and steroids. MUSCULOSKELETAL: Muscle strength and tone normal. SPINE: No scoliosis or deformity SKIN: No rashes CENTRAL NERVOUS SYSTEM: Alert oriented 3, no gross focal neurologic deficits. PSYCHIATRIC: Normal mood, blunt affect, intact mental status. - Labs CBC & Chem 7: 01/07/19 04:53 01/07/19 04:53 Labs: Abnormal Lab Results - Last 24 Hours (Table) 01/06/19 01/06/19 01/06/19 Range/Units 11:07 11:07 11:34 WBC 11.0 H (3.8-10.6) k/uL RDW 16.7 H (11.5-15.5) % Neutrophils # (1.3-7.7) k/uL Neutrophils # (Manual) 9.70 H (1.3-7.7) k/uL Lymphocytes # (1.0-4.8) k/uL Lymphocytes # (Manual) 0.55 L (1.0-4.8) k/uL Myelocytes # (Manual) 0.33 H (0) k/uL Nucleated RBCs 1 H (0-0) /100 WBC Chloride 85 L (98-107) mmol/L Carbon Dioxide 47 H* (22-30) mmol/L BUN 22 H (7-17) mg/dL Creatinine 0.45 L (0.52-1.04) mg/dL Glucose 215 H (74-99) mg/dL POC Glucose (mg/dL) 202 H (75-99) mg/dL Plasma Lactic Acid Shailesh (0.7-2.0) mmol/L Total Protein 6.0 L (6.3-8.2) g/dL Albumin 3.3 L (3.5-5.0) g/dL 01/06/19 01/06/19 01/07/19 Range/Units 16:58 20:39 04:53 WBC 12.3 H (3.8-10.6) k/uL RDW 16.7 H (11.5-15.5) % Neutrophils # 11.4 H (1.3-7.7) k/uL Neutrophils # (Manual) (1.3-7.7) k/uL Lymphocytes # 0.1 L (1.0-4.8) k/uL Lymphocytes # (Manual) (1.0-4.8) k/uL Myelocytes # (Manual) (0) k/uL Nucleated RBCs (0-0) /100 WBC Chloride (98-107) mmol/L Carbon Dioxide (22-30) mmol/L BUN (7-17) mg/dL Creatinine (0.52-1.04) mg/dL Glucose (74-99) mg/dL POC Glucose (mg/dL) 184 H (75-99) mg/dL Plasma Lactic Acid Shailesh 0.6 L (0.7-2.0) mmol/L Total Protein (6.3-8.2) g/dL Albumin (3.5-5.0) g/dL 01/07/19 01/07/19 Range/Units 04:53 06:47 WBC (3.8-10.6) k/uL RDW (11.5-15.5) % Neutrophils # (1.3-7.7) k/uL Neutrophils # (Manual) (1.3-7.7) k/uL Lymphocytes # (1.0-4.8) k/uL Lymphocytes # (Manual) (1.0-4.8) k/uL Myelocytes # (Manual) (0) k/uL Nucleated RBCs (0-0) /100 WBC Chloride 84 L (98-107) mmol/L Carbon Dioxide 48 H* (22-30) mmol/L BUN 22 H (7-17) mg/dL Creatinine 0.43 L (0.52-1.04) mg/dL Glucose 188 H (74-99) mg/dL POC Glucose (mg/dL) 178 H (75-99) mg/dL Plasma Lactic Acid Shailesh (0.7-2.0) mmol/L Total Protein (6.3-8.2) g/dL Albumin (3.5-5.0) g/dL Microbiology - Last 24 Hours (Table) 01/01/19 22:05 Blood Culture - Preliminary Blood No Growth after 120 hours Assessment and Plan Assessment: #1. Acute on chronic hypoxemic respiratory failure secondary to acute exacerbation of chronic obstructive pulmonary disease complicated by tracheo bronchitis #2. Chronic hypercapnic respiratory failure related to advanced COPD #3. New-onset A. fib RVR, remains tachycardic today. #4. History of pulmonary embolism on Xarelto #5. Recent hospitalization at [facility] for COPD exacerbation, patient was discharged home on accommodation of prednisone and doxycycline #6. Advanced COPD on home oxygen at 3 L, and maintenance dose prednisone #7. Former smoker #8. Hypothyroidism #9. Previous history of CVA #10. Hypertension #11. Hyperlipidemia #12. Anxiety #13. Chronic left leg swelling, and there is bruising involving the left foot, denies any recent trauma #14. Degenerative disc disease #15. Valvular heart disease, severe mitral regurgitation, and moderate pulmonary hypertension with PA systolic of 57 mmHg is seen on the echocardiogram from May 2018 Recommendation: Continue present course of bronchodilators, Continue BiPAP. Continue cardiac meds including digoxin and Cardizem for her atrial fibrillation with RVR, Continue anticoagulation therapy Continue to monitor closely on a monitor bed, patient is presently an overflow in the ICU. Resume home meds. Discussed CODE STATUS yesterday with the patient, she is presently DO NOT RESUSCITATE. Prognosis remains extremely poor and guarded. We'll continue to follow. Time with Patient: Less than 30
[2019-01-07] MEDS: DOXYCYCLINE 100 MG CAP PO SCH ×2 (11:40→21:42)
[2019-01-07 12:02] LABS: Glucose,Whole Blood 230 mg/dL (75-99)
--- NOTE | 2019-01-07 14:24 | P.PN ---
Subjective 63-year-old female was admitted for presumed exacerbation patient is a presently on BiPAP patient is also being treated for A. fib Ventricular rate and patient is being digitalized patient is already on Cardizem and anti-correlation. Patient was transferred from regular floor to [facility] because of respiratory failure and A. fib with rapid ventricular rate with heart rate going up to 160s 01/02/2019 Patient heart rate is better controlled but the patient remains on BiPAP patient is unable to tolerate when she is off BiPAP. Review of systems: Unable to obtain as patient is on BiPAP All inpatient medications were reviewed and appropriate changes in these medications as dictated in the interval history and assessment and plan. Objective - Vital Signs Vital signs: Vital Signs Temp 37.1 F L 01/07/19 12:00 Pulse 128 H 01/07/19 13:00 Resp 16 01/07/19 13:00 BP 153/99 01/07/19 13:00 Pulse Ox 90 L 01/07/19 13:00 Intake & Output 01/06/19 01/07/19 01/07/19 18:59 06:59 18:59 Intake Total 340 975 675 Output Total 1675 550 725 Balance -1335 425 -50 Weight 73.3 kg 73.3 kg Intake: IV 900 375 Sodium Chloride 0.9% 1, 900 375 000 ml @ 75 mls/hr IV . [id number] [facility] Rx#:[id number] Intake, IV Titration 340 75 Amount Sodium Chloride 0.9% 1, 340 75 000 ml @ 75 mls/hr IV . [id number] [facility] Rx#:[id number] Oral 300 Output: Urine 1675 550 725 Other: Voiding Method Indwelling Catheter Indwelling Catheter Indwelling Catheter - Exam PHYSICAL EXAMINATION: GENERAL: Patient is sleepy on BiPAP not in respiratory distress on BiPAP HEENT: Pupils are round and equally reacting to light. EOMI. No scleral icterus. No conjunctival pallor. Normocephalic, atraumatic. No pharyngeal erythema. No thyromegaly. CARDIOVASCULAR: S1 and S2 present. No murmurs, rubs, or gallops. PULMONARY: Diminished bilaterally no significant expiratory wheezing was appreciated. ABDOMEN: Soft, nontender, nondistended, normoactive bowel sounds. No palpable organomegaly. MUSCULOSKELETAL: No joint swelling or deformity. EXTREMITIES: No cyanosis, clubbing, or pedal edema. NEUROLOGICAL: Unable to assess SKIN: No rashes. - Labs CBC & Chem 7: 01/07/19 04:53 01/07/19 04:53 Labs: Abnormal Lab Results - Last 24 Hours (Table) 01/06/19 01/06/19 01/07/19 Range/Units 16:58 20:39 04:53 WBC 12.3 H (3.8-10.6) k/uL RDW 16.7 H (11.5-15.5) % Neutrophils # 11.4 H (1.3-7.7) k/uL Lymphocytes # 0.1 L (1.0-4.8) k/uL Chloride (98-107) mmol/L Carbon Dioxide (22-30) mmol/L BUN (7-17) mg/dL Creatinine (0.52-1.04) mg/dL Glucose (74-99) mg/dL POC Glucose (mg/dL) 184 H (75-99) mg/dL Plasma Lactic Acid Shailesh 0.6 L (0.7-2.0) mmol/L 01/07/19 01/07/19 01/07/19 Range/Units 04:53 06:47 11:51 WBC (3.8-10.6) k/uL RDW (11.5-15.5) % Neutrophils # (1.3-7.7) k/uL Lymphocytes # (1.0-4.8) k/uL Chloride 84 L (98-107) mmol/L Carbon Dioxide 48 H* (22-30) mmol/L BUN 22 H (7-17) mg/dL Creatinine 0.43 L (0.52-1.04) mg/dL Glucose 188 H (74-99) mg/dL POC Glucose (mg/dL) 178 H 230 H (75-99) mg/dL Plasma Lactic Acid Shailesh (0.7-2.0) mmol/L Microbiology - Last 24 Hours (Table) 01/01/19 22:05 Blood Culture - Preliminary Blood No Growth after 120 hours Assessment and Plan Plan: Acute on chronic hypercapnic respiratory failure secondary to COPD exacerbation patient is presently on BiPAP continued weaned off as tolerated continue with systemic steroids inhalational treatments. Continue with antibiotics. -New-onset A. fib heart rate is better controlled at this time point of time continue with anticoagulation and digoxin and the calcium channel stephanie -History of unremarkable -Hypothyroidism -Hypertension --Hyperlipidemia -Anxiety disorder -Severe mitral regurgitation with moderate pulmonary hypertension with RVSP of 57 For above-mentioned chronic medical problems patient will be resumed and continued on appropriate home medications.
[2019-01-07 16:51] LABS: Glucose,Whole Blood 170 mg/dL (75-99)
[2019-01-07] MEDS ORDERED: DIGOXIN 250 MCG/ML 2 ML AMP IVP PRN (19:10)
[2019-01-07 20:50] LABS: Glucose,Whole Blood 195 mg/dL (75-99)
[2019-01-07] MEDS: IPRATROPIUM-ALBUTEROL 3 ML NEB INHALATION PRN (23:12)
[2019-01-08] MEDS: IPRATROPIUM-ALBUTEROL 3 ML NEB INHALATION PRN ×2 (03:14→23:10)
[2019-01-08 05:49] LABS: African American GFR (CKD) >90 (>60 ml/min/1.73 sqM); Blood Urea Nitrogen 29 mg/dL (7-17); Calcium 8.8 mg/dL (8.4-10.2); Chloride 88 mmol/L (98-107); Glucose 212 mg/dL (74-99); Potassium 4.4 mmol/L (3.5-5.1); Sodium 137 mmol/L (137-145)
[2019-01-08 05:55] LABS: Anisocytosis Slight; HCT 37.2 % (34.0-46.0); HGB 11.6 gm/dL (11.4-16.0); Hypochromasia Moderate; MCH 27.3 pg (25.0-35.0); MCHC 31.2 g/dL (31.0-37.0); MCV 87.6 fL (80.0-100.0); Mean Platelet Volume 6.3; Platelet Count 293 k/uL (150-450); RBC 4.25 m/uL (3.80-5.40); RDW 16.8 % (11.5-15.5); WBC 10.7 k/uL (3.8-10.6)
[2019-01-08 05:56] LABS: Anion Gap 2 mmol/L
[2019-01-08 06:03] LABS: Carbon Dioxide 47 mmol/L (22-30)
[2019-01-08 06:22] LABS: Band Neutrophils % 3 %; Lymphocytes # (M) 0.11 k/uL (1.0-4.8); Monocytes # (M) 0.43 k/uL (0-1.0); Myelocytes # (M) 0.21 k/uL (0); Myelocytes % 2 %; Neutrophils % (M) 91 %; Nucleated Red Blood Cells 0 /100 WBC (0-0); Total Cells Counted 200
[2019-01-08] MEDS: SODIUM CHLORIDE 0.9% 1,000 ML IV SCH (06:32)
[2019-01-08] MEDS: LEVOTHYROXINE 50 MCG TAB PO SCH (06:32)
[2019-01-08] MEDS: KETOROLAC 30 MG/ML 1 ML VIAL IVP SCH ×5 (06:32→23:38)
[2019-01-08] MEDS: MORPHINE SULFATE ER 30 MG TABLET PO SCH (06:33)
[2019-01-08] MEDS: BUDESONIDE 1 MG/2 ML NEBU INHALATION SCH ×2 (06:58→20:02)
[2019-01-08] MEDS: FORMOTEROL FUMARATE 20 MCG/2 ML NEBU INHALATION SCH ×2 (06:58→20:02)
[2019-01-08] MEDS: IPRATROPIUM-ALBUTEROL 3 ML NEB INHALATION SCH ×4 (06:58→20:02)
[2019-01-08] MEDS: INSULIN ASPART (NovoLOG) 100 UNIT/ML VIAL SQ SCH ×4 (06:59→20:57)
[2019-01-08 07:06] LABS: Glucose,Whole Blood 231 mg/dL (75-99)
--- NOTE | 2019-01-08 08:55 | P.PN ---
Subjective Progress Note Date: 01/08/19 Principal diagnosis: Patient is admitted to intensive care unit with recurrent episodes of atrial fibrillation. At the time of my evaluation this morning she remains in sinus rhythm. She has a BiPAP on and satting at 87. Patient is on xarelto blood pressure is well-controlled. Hemoglobin today is 11.6. Potassium is 4.4. Creatinine is 0.43. Patient is an aspirin Cardizem CD 240 mg daily Lasix 40 mg daily Lipitor and insulin Patient is feeling better this morning. Remains in sinus rhythm. Objective - Vital Signs Vital signs: Vital Signs Temp 97.9 F 01/07/19 20:00 Pulse 86 01/08/19 07:29 Resp 14 01/08/19 04:00 BP 150/76 01/08/19 04:00 Pulse Ox 93 L 01/08/19 04:00 Intake & Output 01/07/19 01/08/19 01/08/19 18:59 06:59 18:59 Intake Total 1125 900 75 Output Total 1230 585 45 Balance -105 315 30 Weight 73.3 kg 74.8 kg Intake: IV 825 900 75 Sodium Chloride 0.9% 1, 825 900 75 000 ml @ 75 mls/hr IV . [id number] [facility] Rx#:[id number] Oral 300 Output: Urine 1230 585 45 Other: Voiding Method Indwelling Catheter Indwelling Catheter - Constitutional General appearance: Present: morbidly obese - Neck Carotids: bilateral: upstroke normal - Respiratory Respiratory: bilateral: diminished - Cardiovascular Rhythm: regular Heart sounds: normal: S1, S2 - Peripheral edema ankle Peripheral Edema: bilateral: 1+ - Peripheral pulses posterior tibial Peripheral Pulses: bilateral: Normal - Labs CBC & Chem 7: 01/08/19 05:27 01/08/19 05:24 Labs: Abnormal Lab Results - Last 24 Hours (Table) 01/07/19 01/07/19 01/07/19 Range/Units 11:51 16:40 20:38 WBC (3.8-10.6) k/uL RDW (11.5-15.5) % Neutrophils # (Manual) (1.3-7.7) k/uL Lymphocytes # (Manual) (1.0-4.8) k/uL Myelocytes # (Manual) (0) k/uL Chloride (98-107) mmol/L Carbon Dioxide (22-30) mmol/L BUN (7-17) mg/dL Creatinine (0.52-1.04) mg/dL Glucose (74-99) mg/dL POC Glucose (mg/dL) 230 H 170 H 195 H (75-99) mg/dL 01/08/19 01/08/19 01/08/19 Range/Units 05:24 05:27 06:54 WBC 10.7 H (3.8-10.6) k/uL RDW 16.8 H (11.5-15.5) % Neutrophils # (Manual) 10.00 H (1.3-7.7) k/uL Lymphocytes # (Manual) 0.11 L (1.0-4.8) k/uL Myelocytes # (Manual) 0.21 H (0) k/uL Chloride 88 L (98-107) mmol/L Carbon Dioxide 47 H* (22-30) mmol/L BUN 29 H (7-17) mg/dL Creatinine 0.43 L (0.52-1.04) mg/dL Glucose 212 H (74-99) mg/dL POC Glucose (mg/dL) 231 H (75-99) mg/dL Microbiology - Last 24 Hours (Table) 01/01/19 22:05 Blood Culture - Final Blood No Growth after 144 hours 01/06/19 16:58 Blood Culture - Preliminary Blood No Growth after 24 hours Assessment and Plan Assessment: Paroxysmal atrial fibrillation COPD Uncontrolled hypertension Patient remains in sinus rhythm adequately anticoagulated on optimal medical therapy. I will start the patient on lisinopril 10 mg daily for optimal blood pressure control.
--- NOTE | 2019-01-08 09:11 | P.PN ---
Subjective Progress Note Date: 01/08/19 Principal diagnosis: Shortness of breath, cough, wheezing This is a 63-year-old white female patient with past medical history of COPD, and patient is on home oxygen at 2 L, and maintenance dose prednisone, previous history of CVA/TIA, hypertension, hyperlipidemia, previous history of pulmonary embolism on Xarelto, hypothyroidism, anxiety, and former smoker, who was recently hospitalized at the [facility] and discharged home a week ago for acute exacerbation of COPD. Patient states she was treated with the IV steroids, nebulized treatments and doxycycline, she was discharged home a week ago, however she felt that she did not significantly improve, she was seen in the emergency room at [facility] on 12/30/2018 with complaints of productive cough, difficulty breathing, chills and shakes, patient at that time left AGAINST MEDICAL ADVICE. On 01/01/2019 18 came back for reevaluation with worsening dyspnea, cough, congestion, she states she just couldn't breathe, she is experiencing some chest tightness, she states she is bringing up some foul smelling and foul tasting green colored phlegm. Denied any chest pain, reports some subjective chills, she reports some swelling in her lower extremities, there is significant bruising to her left foot, and patient denies any recent trauma to it. He was found to be in A. fib RVR, she was placed on Cardizem drip, and she has currently converted to sinus rhythm, he was started on IV steroids, empiric antibiotics in the form of Levaquin, breathing treatments, she is on 5 L of O2, she states she at times feel like she is going to , and not leave the hospital. No fever, hemodynamically stable, lung sounds reveal diminished breath sounds with diffuse wheezes, patient does not appear to be in any acute distress. Chest x-ray was reviewed showing a mild persistent plate atelectasis at the left lung base. On 01/03/2019 patient seen in follow-up on selective care unit, patient to be lethargic, but arousable, she is currently on BiPAP, and apparent that she wore the BiPAP support overnight, she states that she is comfortable on a, breathing easier, she states she briefly had it off when her sisters were visiting and she was extremely dyspneic, and she preferred to be placed back on BiPAP, current pressures at 10/5, and FiO2 of 50%. Patient has been afebrile, hemodynamically stable. Antibiotic coverage is now with Augmentin, Levaquin was discontinued, but culture so far shows no growth, and Lavinia have been unable to collect a sputum culture, no complains of chest pain, IV steroids and nebulized bronchodilators continue. D-dimer was negative, troponin was negative. Echocardiogram showed preserved left ventricle systolic function, left ventricular hypertrophy, EF of 60-65%, moderate pulmonary hypertension with a PA systolic of 51.3 mmHg. On 01/04/2019 patient seen in follow-up on selective care unit, she is awake and alert, although she states she has been more sleepy lately, and she is wondering if it's her Klonopin making her more fatigued and sleepy, currently she is answ ering questions appropriately, she is awake, she is up in the chair, she has been able to ambulate to the bathroom with assistance, tolerated activity early well, she has been wearing BiPAP support most of the night, and intermittently throughout the day, she has been on nasal cannula for meals, still sounds quite bronchospastic, however somewhat improved since admission, she is occasionally bringing up some thick green colored sputum, her current antibiotic coverage is with Augmentin. Culture showed no growth, sputum culture has not been sent yet. Yesterday's blood gases were called in to us, and patient first had a blood gas showing pO2 of 140, pCO2 of 75% and pH of 7.35, this was done and FiO2 of 50% on BiPAP support with pressures of 10 and 5, and her FiO2 was then dropped to 35%, subsequently patient had another repeat blood gas showing pO2 of 83, pCO2 of 72, and pH of 7.40, this was done on 35%, and this is consistent with chronic hypercapnic respiratory failure. On 01/05/2018 patient seen in follow-up on medical surgical floor. She is on BiPAP, with pressures of 12 and 5, and FiO2 of 35%, she is lethargic, but arouses, she states she did not come off the BiPAP to eat because she is having increased shortness of breath, remains on oral antibiotics, IV steroids, and neb ulized bronchodilators. She has been slow to improve. She has had 2 sets of blood gases that demonstrated chronic hypercapnic respiratory failure, without evidence of acute decompensation, we will repeat another set of blood gas this morning, we adjusted her doses of Klonopin and Xanax. Lung sounds positive for diffuse wheezes and rhonchi. On 01/07/2019 patient seen in follow-up in the intensive care unit, she remains on BiPAP support with pressures of 12/5 and FiO2 of 30%. She is wearing the BiPAP most of the time, we will try Ventimask this morning, and we will titrate the oxygen to keep her O2 sat is 88% or above. Chest x-ray today, less chest x- ray within on 01/05/2017 showing chronic parenchymal changes and mild cardiomegaly without acute pulmonary process. She remains sinus rhythm sinus tach, and her rate is better controlled, currently on oral Cardizem. And she is on Xarelto for anticoagulation for history of atrial fibrillation. She is on empiric antibiotics, she is not able to cough up much sputum, blood cultures are negative, no fever or chills. She has made little improvement since admission, despite the next best medical treatment. Discussed CODE STATUS with her last weekend patient decided to be DO NOT RESUSCITATE CODE STATUS. Patient has been tried on nasal cannula a few times, however she rapidly desaturates and becomes short of breath and has to be placed back on BiPAP. Lung sounds are diminished, with diffuse crackles and rhonchi, and some wheezes, today's labs have been reviewed, showing white blood cell count of 10.7, hemoglobin of 11.6, sodium of 137, potassium is 4.4, chloride is 88, CO2 is 47, B1 is 29 creatinine 0.43. 0.9 normal saline infusing at 75 ML per hour, patient has developed mild edema in her lower extremities, and we will contact IV fluids to KVO. Objective - Vital Signs Vital signs: Vital Signs Temp 97.9 F 01/07/19 20:00 Pulse 86 01/08/19 07:29 Resp 14 01/08/19 04:00 BP 150/76 01/08/19 04:00 Pulse Ox 93 L 01/08/19 04:00 Intake & Output 01/07/19 01/08/19 01/08/19 18:59 06:59 18:59 Intake Total 1125 900 75 Output Total 1230 585 45 Balance -105 315 30 Weight 73.3 kg 74.8 kg Intake: IV 825 900 75 Sodium Chloride 0.9% 1, 825 900 75 000 ml @ 75 mls/hr IV . [id number] [facility] Rx#:[id number] Oral 300 Output: Urine 1230 585 45 Other: Voiding Method Indwelling Catheter Indwelling Catheter - Exam GENERAL EXAM: Somnolent, but arousable pleasant, 63-year-old white female, on BiPAP support with pressures of 12 and 5 and FiO2 of 30% HEAD: Normocephalic/atraumatic. EYES: Normal reaction of pupils, equal size. Conjunctiva pink, sclera white. NOSE: Clear with pink turbinates. THROAT: No erythema or exudates. NECK: No masses, no JVD, no thyroid enlargement, no adenopathy. CHEST: No chest wall deformity. Symmetrical expansion. LUNGS: Equal air entry with diffuse scattered rhonchi, rales and wheezes CVS: Regular rate and rhythm, normal S1 and S2, no gallops, no murmurs, no rubs ABDOMEN: Soft, nontender. No hepatosplenomegaly, normal bowel sounds, no guarding or rigidity. EXTREMITIES: No clubbing, trace lower extremity edema left greater than the right, no cyanosis, 2+ pulses and upper and lower extremities. There are ex tensive bruises involving the left foot, left lower leg, and to a lesser degree right lower leg, toes on the left foot, and patient denies any recent trauma, he is on chronic anticoagulation MUSCULOSKELETAL: Muscle strength and tone normal. SPINE: No scoliosis or deformity SKIN: No rashes CENTRAL NERVOUS SYSTEM: Alert and oriented -3. No focal deficits, tone is normal in all 4 extremities. PSYCHIATRIC: Alert and oriented -3. Appropriate affect. Intact judgment and insight. - Labs CBC & Chem 7: 01/08/19 05:27 01/08/19 05:24 Labs: Abnormal Lab Results - Last 24 Hours (Table) 01/07/19 01/07/19 01/07/19 Range/Units 11:51 16:40 20:38 WBC (3.8-10.6) k/uL RDW (11.5-15.5) % Neutrophils # (Manual) (1.3-7.7) k/uL Lymphocytes # (Manual) (1.0-4.8) k/uL Myelocytes # (Manual) (0) k/uL Chloride (98-107) mmol/L Carbon Dioxide (22-30) mmol/L BUN (7-17) mg/dL Creatinine (0.52-1.04) mg/dL Glucose (74-99) mg/dL POC Glucose (mg/dL) 230 H 170 H 195 H (75-99) mg/dL 01/08/19 01/08/19 01/08/19 Range/Units 05:24 05:27 06:54 WBC 10.7 H (3.8-10.6) k/uL RDW 16.8 H (11.5-15.5) % Neutrophils # (Manual) 10.00 H (1.3-7.7) k/uL Lymphocytes # (Manual) 0.11 L (1.0-4.8) k/uL Myelocytes # (Manual) 0.21 H (0) k/uL Chloride 88 L (98-107) mmol/L Carbon Dioxide 47 H* (22-30) mmol/L BUN 29 H (7-17) mg/dL Creatinine 0.43 L (0.52-1.04) mg/dL Glucose 212 H (74-99) mg/dL POC Glucose (mg/dL) 231 H (75-99) mg/dL Microbiology - Last 24 Hours (Table) 01/01/19 22:05 Blood Culture - Final Blood No Growth after 144 hours 01/06/19 16:58 Blood Culture - Preliminary Blood No Growth after 24 hours Assessment and Plan Plan: Assessment: #1. Acute on chronic hypoxemic respiratory failure secondary to acute exacerbation of chronic obstructive pulmonary disease complicated by tracheobronchitis #2. Chronic hypercapnic respiratory failure related to advanced COPD #3. New-onset A. fib RVR, patient has since converted to sinus rhythm #4. History of pulmonary embolism on Xarelto #5. Recent hospitalization at [facility] for COPD exacerbation, patient was discharged home on accommodation of prednisone and doxycycline #6. Advanced COPD on home oxygen at 3 L, and maintenance dose prednisone #7. Former smoker #8. Hypothyroidism #9. Previous history of CVA #10. Hypertension #11. Hyperlipidemia #12. Anxiety #13. Chronic left leg swelling, and there is bruising involving the left foot, denies any recent trauma #14. Degenerative disc disease #15. Valvular heart disease, severe mitral regurgitation, and moderate pulmonary hypertension with PA systolic of 57 mmHg is seen on the echocardiogram from May 2018 Plan: We'll try Ventimask child this morning, may still use the BiPAP intermittently, increased the IV Solu-Medrol to 60 mg every 6, we will add theophylline preparation 400 mg at bedtime. Contact IV fluids to KVO, continue with oral dose of Lasix titrate oxygen to keep O2 sats ration is at 88% or above. CODE STATUS was again discussed and patient remains DO NOT RESUSCITATE CODE STATUS. Not ready for palliative care/hospice. Continue supportive medical treatment, will follow. I performed a history & physical examination of the patient and discussed their management with my nurse practitioner, Renee Dior. I reviewed the nurse practitioner's note and agree with the documented findings and plan of care. Lung sounds are positive for diffuse wheezes throughout the lung russell. The findings and the impression was discussed with the patient. I attest to the documentation by the nurse practitioner. Time with Patient: Less than 30
[2019-01-08] MEDS: NICOTINE 14MG/24HR PATCH TRANSDERM SCH (09:15)
[2019-01-08] MEDS: POLYETHYLENE GLYCOL 3350 17 GM POWD.PACK PO SCH (09:15)
[2019-01-08] MEDS: FLUCONAZOLE 100 MG TAB PO SCH (09:20)
[2019-01-08] MEDS: clonazePAM 0.5 MG TAB PO SCH ×2 (09:20→21:11)
[2019-01-08] MEDS: DOXYCYCLINE 100 MG CAP PO SCH ×2 (09:20→21:11)
[2019-01-08] MEDS: ASPIRIN 81 MG PO SCH (09:20)
[2019-01-08] MEDS: TAMSULOSIN 0.4 MG CAP.ER.24H PO SCH (09:20)
[2019-01-08] MEDS: DILTIAZEM CD 240 MG CAP.ER.24H PO SCH (09:20)
[2019-01-08] MEDS: FUROSEMIDE 20 MG TAB PO SCH (09:20)
[2019-01-08] MEDS: ATORVASTATIN 20 MG TAB PO SCH (09:20)
[2019-01-08] MEDS: SPIRONOLACTONE 25 MG TAB PO SCH (09:20)
[2019-01-08] MEDS: RIVAROXABAN 20 MG TAB PO SCH (09:20)
[2019-01-08] MEDS: DULoxetine HCL 60 MG CAPSULE.DR PO SCH (09:20)
[2019-01-08] MEDS: MONTELUKAST 10 MG TAB PO SCH (09:20)
[2019-01-08] MEDS: DIGOXIN 250 MCG/ML 2 ML AMP IVP SCH (09:21)
[2019-01-08] MEDS: NYSTATIN 100,000UNIT/GM CREAM 30 GM TUBE TOPICAL SCH ×2 (09:26→21:12)
[2019-01-08] MEDS: PREGABALIN 50 MG CAP PO SCH ×2 (09:26→21:11)
[2019-01-08] MEDS: methylPREDNISolone SOD SUCCI 125 MG/2 ML VIAL IV SCH ×3 (11:50→23:38)
[2019-01-08 11:51] LABS: Glucose,Whole Blood 167 mg/dL (75-99)
--- NOTE | 2019-01-08 14:15 | P.PN ---
Subjective 63-year-old female was admitted for presumed exacerbation patient is a presently on BiPAP patient is also being treated for A. fib Ventricular rate and patient is being digitalized patient is already on Cardizem and anti-correlation. Patient was transferred from regular floor to [facility] because of respiratory failure and A. fib with rapid ventricular rate with heart rate going up to 160s 01/07/2019 Patient heart rate is better controlled but the patient remains on BiPAP patient is unable to tolerate when she is off BiPAP. 01/08/2019 Patient is on off BiPAP is a pleasant into his apartment and does have expiratory wheezing and exam decreased to air movement. Constitutional: Denied any fatigue denied any fever. Cardio vascular: denied any chest pain, palpitations Gastrointestinal denied any nausea vomiting Pulmonary: Patient is feeling much better today still has some shortness of breath Neurologic denied any new focal deficits All inpatient medications were reviewed and appropriate changes in these medications as dictated in the interval history and assessment and plan. Objective - Vital Signs Vital signs: Vital Signs Temp 97.9 F 01/07/19 20:00 Pulse 123 H 01/08/19 12:00 Resp 17 01/08/19 12:00 BP 156/98 01/08/19 12:00 Pulse Ox 91 L 01/08/19 12:00 Intake & Output 01/07/19 01/08/19 01/08/19 18:59 06:59 18:59 Intake Total 1125 900 400 Output Total 1230 585 520 Balance -105 315 -120 Weight 73.3 kg 74.8 kg Intake: IV 825 900 275 Sodium Chloride 0.9% 1, 825 900 275 000 ml @ 25 mls/hr IV . Q24H [facility] Rx#:[id number] Oral 300 125 Output: Urine 1230 585 520 Other: Voiding Method Indwelling Catheter Indwelling Catheter Indwelling Catheter - Exam PHYSICAL EXAMINATION: GENERAL: Alert oriented 3 off BiPAP on 2 L Nesacaine and boxes and HEENT: Pupils are round and equally reacting to light. EOMI. No scleral icterus. No conjunctival pallor. Normocephalic, atraumatic. No pharyngeal erythema. No thyromegaly. CARDIOVASCULAR: S1 and S2 present. No murmurs, rubs, or gallops. PULMONARY: Diminished bilaterally improved wheezing on exam ABDOMEN: Soft, nontender, nondistended, normoactive bowel sounds. No palpable organomegaly. MUSCULOSKELETAL: No joint swelling or deformity. EXTREMITIES: No cyanosis, clubbing, or pedal edema. NEUROLOGICAL: No focal deficits SKIN: No rashes. - Labs CBC & Chem 7: 01/08/19 05:27 01/08/19 05:24 Labs: Abnormal Lab Results - Last 24 Hours (Table) 01/07/19 01/07/19 01/08/19 Range/Units 16:40 20:38 05:24 WBC (3.8-10.6) k/uL RDW (11.5-15.5) % Neutrophils # (Manual) (1.3-7.7) k/uL Lymphocytes # (Manual) (1.0-4.8) k/uL Myelocytes # (Manual) (0) k/uL Chloride 88 L (98-107) mmol/L Carbon Dioxide 47 H* (22-30) mmol/L BUN 29 H (7-17) mg/dL Creatinine 0.43 L (0.52-1.04) mg/dL Glucose 212 H (74-99) mg/dL POC Glucose (mg/dL) 170 H 195 H (75-99) mg/dL 01/08/19 01/08/19 01/08/19 Range/Units 05:27 06:54 11:40 WBC 10.7 H (3.8-10.6) k/uL RDW 16.8 H (11.5-15.5) % Neutrophils # (Manual) 10.00 H (1.3-7.7) k/uL Lymphocytes # (Manual) 0.11 L (1.0-4.8) k/uL Myelocytes # (Manual) 0.21 H (0) k/uL Chloride (98-107) mmol/L Carbon Dioxide (22-30) mmol/L BUN (7-17) mg/dL Creatinine (0.52-1.04) mg/dL Glucose (74-99) mg/dL POC Glucose (mg/dL) 231 H 167 H (75-99) mg/dL Microbiology - Last 24 Hours (Table) 01/01/19 22:05 Blood Culture - Final Blood No Growth after 144 hours 01/06/19 16:58 Blood Culture - Preliminary Blood No Growth after 24 hours Assessment and Plan Plan: Acute on chronic hypercapnic respiratory failure secondary to COPD exacerbation patient is off BiPAP continued and is on 2 L of nasal cannula arms and patient uses 2 L at home with systemic steroids inhalational treatments. Continue with antibiotics. -New-onset A. fib heart rate is better controlled at this time point of time continue with anticoagulation and digoxin and the calcium channel stephanie -History of unremarkable -Hypothyroidism -Hypertension --Hyperlipidemia -Anxiety disorder -Severe mitral regurgitation with moderate pulmonary hypertension with RVSP of 57 For above-mentioned chronic medical problems patient will be resumed and continued on appropriate home medications.
[2019-01-08 17:02] LABS: Glucose,Whole Blood 294 mg/dL (75-99)
[2019-01-08] MEDS ORDERED: INSULIN ASPART (NovoLOG) 100 UNIT/ML VIAL SQ SCH (17:30)
[2019-01-08] MEDS: ALPRAZolam 0.25 MG TAB PO PRN (17:41)
[2019-01-08 20:58] LABS: Glucose,Whole Blood 240 mg/dL (75-99)
[2019-01-08] MEDS ORDERED: THEOPHYLLINE 24 HOUR 400 MG CAP.ER.24H PO SCH (21:00)
[2019-01-09] MEDS: IPRATROPIUM-ALBUTEROL 3 ML NEB INHALATION PRN (03:05)
[2019-01-09] MEDS: ALPRAZolam 0.25 MG TAB PO PRN (04:32)
[2019-01-09] MEDS: MORPHINE SULFATE ER 30 MG TABLET PO PRN (05:04)
[2019-01-09 05:07] LABS: African American GFR (CKD) >90 (>60 ml/min/1.73 sqM); Blood Urea Nitrogen 23 mg/dL (7-17); Calcium 9.1 mg/dL (8.4-10.2); Chloride 86 mmol/L (98-107); Digoxin 0.5 ng/mL; Glucose 219 mg/dL (74-99); Potassium 3.8 mmol/L (3.5-5.1); Sodium 137 mmol/L (137-145)
[2019-01-09 05:07] LABS: Anisocytosis Slight; Basophils # (A) 0.3 k/uL (0-0.2); Basophils % (A) 1 %; Eosinophils % (A) 0 %; HCT 39.1 % (34.0-46.0); HGB 12.4 gm/dL (11.4-16.0); Hypochromasia Moderate; Lymphocytes % (A) 0 %; MCH 27.7 pg (25.0-35.0); MCHC 31.8 g/dL (31.0-37.0); Monocytes # (A) 0.7 k/uL (0-1.0); Monocytes % (A) 4 %; Neutrophils # (A) 18.5 k/uL (1.3-7.7); Neutrophils % (A) 94 %; Platelet Count 246 k/uL (150-450); RBC 4.49 m/uL (3.80-5.40); RDW 16.8 % (11.5-15.5); WBC 19.6 k/uL (3.8-10.6)
[2019-01-09 05:11] LABS: Anion Gap 7 mmol/L
[2019-01-09 05:12] LABS: Carbon Dioxide 44 mmol/L (22-30)
[2019-01-09] MEDS ORDERED: POTASSIUM CHLORIDE 10 MEQ in WATER FOR INJECTION 1 100ML.BAG IVPB SCH (05:30)
[2019-01-09] MEDS ORDERED: DILTIAZEM 5 MG/ML 5 ML VIAL IVP STA (06:00)
[2019-01-09] MEDS ORDERED: DILTIAZEM 125 MG in SODIUM CHLORIDE 0.9% 100 ML IV SCH (06:00)
[2019-01-09] MEDS: KETOROLAC 30 MG/ML 1 ML VIAL IVP SCH ×3 (06:31→17:25)
[2019-01-09] MEDS: methylPREDNISolone SOD SUCCI 125 MG/2 ML VIAL IV SCH ×3 (06:32→17:25)
[2019-01-09] MEDS ORDERED: INSULIN REGULAR BOLUS (FROM DRIP BAG) IV PRN (06:53)
[2019-01-09 07:00] LABS: Glucose,Whole Blood 275 mg/dL (75-99)
[2019-01-09] MEDS ORDERED: INSULIN REGULAR 100 UNIT in SODIUM CHLORIDE 0.9% 100 ML IV SCH (07:00)
[2019-01-09] MEDS: BUDESONIDE 1 MG/2 ML NEBU INHALATION SCH ×2 (07:06→20:29)
[2019-01-09] MEDS: FORMOTEROL FUMARATE 20 MCG/2 ML NEBU INHALATION SCH ×2 (07:06→20:29)
[2019-01-09] MEDS: IPRATROPIUM-ALBUTEROL 3 ML NEB INHALATION SCH ×4 (07:06→20:29)
[2019-01-09 07:53] LABS: Glucose,Whole Blood 212 mg/dL (75-99)
[2019-01-09] MEDS ORDERED: INSULIN ASPART (NovoLOG) 100 UNIT/ML VIAL SQ ONE (07:54)
[2019-01-09] MEDS: LEVOTHYROXINE 50 MCG TAB PO SCH (08:01)
[2019-01-09] MEDS: ATORVASTATIN 20 MG TAB PO SCH (08:02)
[2019-01-09] MEDS: SPIRONOLACTONE 25 MG TAB PO SCH (08:02)
[2019-01-09] MEDS: DULoxetine HCL 60 MG CAPSULE.DR PO SCH (08:02)
[2019-01-09] MEDS: FUROSEMIDE 20 MG TAB PO SCH (08:02)
[2019-01-09] MEDS: MONTELUKAST 10 MG TAB PO SCH (08:02)
[2019-01-09] MEDS: ASPIRIN 81 MG PO SCH (08:02)
[2019-01-09] MEDS: TAMSULOSIN 0.4 MG CAP.ER.24H PO SCH (08:03)
[2019-01-09] MEDS: RIVAROXABAN 20 MG TAB PO SCH (08:03)
[2019-01-09] MEDS: LISINOPRIL 10 MG TAB PO SCH (08:03)
[2019-01-09] MEDS: DOXYCYCLINE 100 MG CAP PO SCH ×2 (08:03→20:23)
[2019-01-09] MEDS: clonazePAM 0.5 MG TAB PO SCH ×2 (08:03→20:23)
[2019-01-09] MEDS: DIGOXIN 250 MCG/ML 2 ML AMP IVP SCH (08:03)
[2019-01-09] MEDS: FLUCONAZOLE 100 MG TAB PO SCH (08:04)
[2019-01-09] MEDS: NICOTINE 14MG/24HR PATCH TRANSDERM SCH (08:04)
[2019-01-09] MEDS: NYSTATIN 100,000UNIT/GM CREAM 30 GM TUBE TOPICAL SCH ×2 (08:04→20:24)
[2019-01-09] MEDS: POLYETHYLENE GLYCOL 3350 17 GM POWD.PACK PO SCH (08:04)
[2019-01-09] MEDS ORDERED: POTASSIUM CHLORIDE 20 MEQ in WATER FOR INJECTION 1 100ML.BAG IVPB STA (08:10)
[2019-01-09] MEDS: PREGABALIN 50 MG CAP PO SCH ×2 (08:50→20:23)
--- NOTE | 2019-01-09 09:03 | P.PN ---
Subjective Progress Note Date: 01/09/19 Principal diagnosis: Shortness of breath, cough, wheezing This is a 63-year-old white female patient with past medical history of COPD, and patient is on home oxygen at 2 L, and maintenance dose prednisone, previous history of CVA/TIA, hypertension, hyperlipidemia, previous history of pulmonary embolism on Xarelto, hypothyroidism, anxiety, and former smoker, who was recently hospitalized at the [facility] and discharged home a week ago for acute exacerbation of COPD. Patient states she was treated with the IV steroids, nebulized treatments and doxycycline, she was discharged home a week ago, however she felt that she did not significantly improve, she was seen in the emergency room at [facility] on 12/30/2018 with complaints of productive cough, difficulty breathing, chills and shakes, patient at that time left AGAINST MEDICAL ADVICE. On 01/01/2019 18 came back for reevaluation with worsening dyspnea, cough, congestion, she states she just couldn't breathe, she is experiencing some chest tightness, she states she is bringing up some foul smelling and foul tasting green colored phlegm. Denied any chest pain, reports some subjective chills, she reports some swelling in her lower extremities, there is significant bruising to her left foot, and patient denies any recent trauma to it. He was found to be in A. fib RVR, she was placed on Cardizem drip, and she has currently converted to sinus rhythm, he was started on IV steroids, empiric antibiotics in the form of Levaquin, breathing treatments, she is on 5 L of O2, she states she at times feel like she is going to , and not leave the hospital. No fever, hemodynamically stable, lung sounds reveal diminished breath sounds with diffuse wheezes, patient does not appear to be in any acute distress. Chest x-ray was reviewed showing a mild persistent plate atelectasis at the left lung base. On 01/03/2019 patient seen in follow-up on selective care unit, patient to be lethargic, but arousable, she is currently on BiPAP, and apparent that she wore the BiPAP support overnight, she states that she is comfortable on a, breathing easier, she states she briefly had it off when her sisters were visiting and she was extremely dyspneic, and she preferred to be placed back on BiPAP, current pressures at 10/5, and FiO2 of 50%. Patient has been afebrile, hemodynamically stable. Antibiotic coverage is now with Augmentin, Levaquin was discontinued, but culture so far shows no growth, and Lavinia have been unable to collect a sputum culture, no complains of chest pain, IV steroids and nebulized bronchodilators continue. D-dimer was negative, troponin was negative. Echocardiogram showed preserved left ventricle systolic function, left ventricular hypertrophy, EF of 60-65%, moderate pulmonary hypertension with a PA systolic of 51.3 mmHg. On 01/04/2019 patient seen in follow-up on selective care unit, she is awake and alert, although she states she has been more sleepy lately, and she is wondering if it's her Klonopin making her more fatigued and sleepy, currently she is answ ering questions appropriately, she is awake, she is up in the chair, she has been able to ambulate to the bathroom with assistance, tolerated activity early well, she has been wearing BiPAP support most of the night, and intermittently throughout the day, she has been on nasal cannula for meals, still sounds quite bronchospastic, however somewhat improved since admission, she is occasionally bringing up some thick green colored sputum, her current antibiotic coverage is with Augmentin. Culture showed no growth, sputum culture has not been sent yet. Yesterday's blood gases were called in to us, and patient first had a blood gas showing pO2 of 140, pCO2 of 75% and pH of 7.35, this was done and FiO2 of 50% on BiPAP support with pressures of 10 and 5, and her FiO2 was then dropped to 35%, subsequently patient had another repeat blood gas showing pO2 of 83, pCO2 of 72, and pH of 7.40, this was done on 35%, and this is consistent with chronic hypercapnic respiratory failure. On 01/05/2018 patient seen in follow-up on medical surgical floor. She is on BiPAP, with pressures of 12 and 5, and FiO2 of 35%, she is lethargic, but arouses, she states she did not come off the BiPAP to eat because she is having increased shortness of breath, remains on oral antibiotics, IV steroids, and neb ulized bronchodilators. She has been slow to improve. She has had 2 sets of blood gases that demonstrated chronic hypercapnic respiratory failure, without evidence of acute decompensation, we will repeat another set of blood gas this morning, we adjusted her doses of Klonopin and Xanax. Lung sounds positive for diffuse wheezes and rhonchi. On 01/08/2019 patient seen in follow-up in the intensive care unit, she remains on BiPAP support with pressures of 12/5 and FiO2 of 30%. She is wearing the BiPAP most of the time, we will try Ventimask this morning, and we will titrate the oxygen to keep her O2 sat is 88% or above. Chest x-ray today, less chest x- ray within on 01/05/2017 showing chronic parenchymal changes and mild cardiomegaly without acute pulmonary process. She remains sinus rhythm sinus tach, and her rate is better controlled, currently on oral Cardizem. And she is on Xarelto for anticoagulation for history of atrial fibrillation. She is on empiric antibiotics, she is not able to cough up much sputum, blood cultures are negative, no fever or chills. She has made little improvement since admission, despite the next best medical treatment. Discussed CODE STATUS with her last weekend patient decided to be DO NOT RESUSCITATE CODE STATUS. Patient has been tried on nasal cannula a few times, however she rapidly desaturates and becomes short of breath and has to be placed back on BiPAP. Lung sounds are diminished, with diffuse crackles and rhonchi, and some wheezes, today's labs have been reviewed, showing white blood cell count of 10.7, hemoglobin of 11.6, sodium of 137, potassium is 4.4, chloride is 88, CO2 is 47, B1 is 29 creatinine 0.43. 0.9 normal saline infusing at 75 ML per hour, patient has developed mild edema in her lower extremities, and we will contact IV fluids to KVO. On 01/09/2019 seen in follow-up in the intensive care unit, she is currently on 35% Ventimask, her pulse ox is 88%, overnight patient's heart rate became more tachycardic likely in response to theophylline. This morning she is in A. fib flutter with a rate of 167 BPM, she is currently on Cardizem drip at 15 mg per hour. Pressures 149/78, still dyspneic, congested, and has a congested cough, not bringing up much sputum. Lung sounds are positive for diffuse rhonchi, and some wheezes, she remains on IV Solu-Medrol, 10 mg every 6 hours. Remains on nebulized bronchodilators, and antibiotics, cultures are negative thus far, unable to obtain sputum culture. No fever or chills. These labs have been reviewed, WBC is 19.6, hemoglobin is 12.4, sodium is 137, potassium is 3.8, chloride is 86, CO2 is 44, B1 is 23, creatinine is 0.42. She is on oral anticoagulation in the form of Xarelto. Objective - Vital Signs Vital signs: Vital Signs Temp 97.9 F 01/09/19 00:00 Pulse 112 H 01/09/19 07:20 Resp 18 01/09/19 04:00 BP 149/78 01/09/19 04:00 Pulse Ox 90 L 01/09/19 04:00 Intake & Output 01/08/19 01/09/19 01/09/19 18:59 06:59 18:59 Intake Total 600 500 Output Total 1570 3555 150 Balance -970 -3055 -150 Weight 76.5 kg Intake: IV 275 Sodium Chloride 0.9% 1, 275 000 ml @ 25 mls/hr IV . Q24H [facility] Rx#:[id number] Oral 325 200 Hemodialysis 300 Output: Urine 1570 1045 150 Hemodialysis 2510 Other: Voiding Method Indwelling Catheter Indwelling Catheter - Exam GENERAL EXAM: Somnolent, but arousable pleasant, 63-year-old white female, on 35% Ventimask EYES: Normal reaction of pupils, equal size. Conjunctiva pink, sclera white. NOSE: Clear with pink turbinates. THROAT: No erythema or exudates. NECK: No masses, no JVD, no thyroid enlargement, no adenopathy. CHEST: No chest wall deformity. Symmetrical expansion. LUNGS: Equal air entry with diffuse scattered rhonchi, rales and wheezes CVS: Regular rate and rhythm, normal S1 and S2, no gallops, no murmurs, no rubs ABDOMEN: Soft, nontender. No hepatosplenomegaly, normal bowel sounds, no guarding or rigidity. EXTREMITIES: No clubbing, trace lower extremity edema left greater than the right, no cyanosis, 2+ pulses and upper and lower extremities. There are extensive bruises involving the left foot, left lower leg, and to a lesser degree right lower leg, toes on the left foot, and patient denies any recent trauma, he is on chronic anticoagulation MUSCULOSKELETAL: Muscle strength and tone normal. SPINE: No scoliosis or deformity SKIN: No rashes CENTRAL NERVOUS SYSTEM: Alert and oriented -3. No focal deficits, tone is normal in all 4 extremities. PSYCHIATRIC: Alert and oriented -3. Appropriate affect. Intact judgment and insight. - Labs CBC & Chem 7: 01/09/19 04:37 01/09/19 04:43 Labs: Abnormal Lab Results - Last 24 Hours (Table) 01/08/19 01/08/19 01/08/19 Range/Units 11:40 16:50 20:46 WBC (3.8-10.6) k/uL RDW (11.5-15.5) % Neutrophils # (1.3-7.7) k/uL Lymphocytes # (1.0-4.8) k/uL Basophils # (0-0.2) k/uL Chloride (98-107) mmol/L Carbon Dioxide (22-30) mmol/L BUN (7-17) mg/dL Creatinine (0.52-1.04) mg/dL Glucose (74-99) mg/dL POC Glucose (mg/dL) 167 H 294 H 240 H (75-99) mg/dL 01/09/19 01/09/19 01/09/19 Range/Units 04:37 04:43 06:49 WBC 19.6 H (3.8-10.6) k/uL RDW 16.8 H (11.5-15.5) % Neutrophils # 18.5 H (1.3-7.7) k/uL Lymphocytes # 0.0 L (1.0-4.8) k/uL Basophils # 0.3 H (0-0.2) k/uL Chloride 86 L (98-107) mmol/L Carbon Dioxide 44 H* (22-30) mmol/L BUN 23 H (7-17) mg/dL Creatinine 0.42 L (0.52-1.04) mg/dL Glucose 219 H (74-99) mg/dL POC Glucose (mg/dL) 275 H (75-99) mg/dL 01/09/19 Range/Units 07:42 WBC (3.8-10.6) k/uL RDW (11.5-15.5) % Neutrophils # (1.3-7.7) k/uL Lymphocytes # (1.0-4.8) k/uL Basophils # (0-0.2) k/uL Chloride (98-107) mmol/L Carbon Dioxide (22-30) mmol/L BUN (7-17) mg/dL Creatinine (0.52-1.04) mg/dL Glucose (74-99) mg/dL POC Glucose (mg/dL) 212 H (75-99) mg/dL Microbiology - Last 24 Hours (Table) 01/06/19 16:58 Blood Culture - Preliminary Blood No Growth after 48 hours Assessment and Plan Plan: Assessment: #1. Acute on chronic hypoxemic respiratory failure secondary to acute exacerbation of chronic obstructive pulmonary disease complicated by tracheobr onchitis #2. Chronic hypercapnic respiratory failure related to advanced COPD #3. New-onset A. fib RVR, patient has since converted to sinus rhythm #4. History of pulmonary embolism on Xarelto #5. Recent hospitalization at [facility] for COPD exacerbation, patient was discharged home on combination of prednisone and doxycycline #6. Advanced COPD on home oxygen at 3 L, and maintenance dose prednisone #7. Former smoker #8. Hypothyroidism #9. Previous history of CVA #10. Hypertension #11. Hyperlipidemia #12. Anxiety #13. Chronic left leg swelling, and there is bruising involving the left foot, denies any recent trauma #14. Degenerative disc disease #15. Valvular heart disease, severe mitral regurgitation, and moderate pulmonary hypertension with PA systolic of 57 mmHg is seen on the echocardiogram from May 2018 Plan: Patient went into A. fib with RVR last night, we will discontinue the theophylline, continues on IV Cardizem, remains tachycardic, she is on Ventimask this morning, encourage deep breathing and coughing, sounds congested, unable to bring up much sputum, we will add flutter valve, continue nebulized bronchodilators, continue antibiotics, culture dated remains negative thus far, patient is afebrile. Continue oral anticoagulation, we'll continue to follow I performed a history & physical examination of the patient and discussed their management with my nurse practitioner, Renee Dior. I reviewed the nurse practitioner's note and agree with the documented findings and plan of care. Lung sounds are positive for diffuse wheezes throughout the lung russell. The findings and the impression was discussed with the patient. I attest to the documentation by the nurse practitioner. Time with Patient: Less than 30
[2019-01-09 11:41] LABS: Glucose,Whole Blood 283 mg/dL (75-99)
[2019-01-09 11:57] LABS: Glucose,Whole Blood 330 mg/dL (75-99)
[2019-01-09] MEDS: INSULIN ASPART (NovoLOG) 100 UNIT/ML VIAL SQ SCH ×3 (12:12→21:21)
[2019-01-09] MEDS: DIGOXIN 125 MCG TAB PO SCH (12:21)
[2019-01-09] MEDS: DILTIAZEM CD 240 MG CAP.ER.24H PO SCH (12:21)
--- NOTE | 2019-01-09 12:49 | PN ---
PROGRESS NOTE Rosaura is a 63-year-old lady with history of COPD, who is in the intensive care unit secondary to respiratory insufficiency and atrial fibrillation. We are following the patient for cardiac arrhythmia. The patient has been having episodes of sinus tachycardia, multifocal atrial tachycardia and also episodes of atrial flutter. She is currently on IV Cardizem which I am going to switch to Cardizem p.o. She is also on aspirin, Lipitor, Lanoxin, which I am going to switch to p.o., Lasix, Toradol, Synthroid and Zestril. On exam today, her blood pressures are better controlled at 144/90, respiratory rate is 24. Heart rate is around 130 beats per minute. Chest exam reveals occasional rhonchi bilaterally. Heart exam reveals first and second heart sounds. No gallop. Exam of the extremities reveals trace edema. LABS: Show a hemoglobin of 12.4, white cell count is elevated. Potassium is 3.8, creatinine is 0.4. ASSESSMENT: 1. Atypical atrial flutter. 2. Multifocal atrial tachycardia. 3. Chronic obstructive pulmonary disease exacerbation. PLAN: Patient is doing much better. Will transfer the patient to Med surg. MMODL / IJN: [id number] /
--- NOTE | 2019-01-09 15:11 | P.PN ---
Subjective 63-year-old female was admitted for presumed exacerbation patient is a presently on BiPAP patient is also being treated for A. fib Ventricular rate and patient is being digitalized patient is already on Cardizem and anti-correlation. Patient was transferred from regular floor to [facility] because of respiratory failure and A. fib with rapid ventricular rate with heart rate going up to 160s 01/07/2019 Patient heart rate is better controlled but the patient remains on BiPAP patient is unable to tolerate when she is off BiPAP. 01/08/2019 Patient is on off BiPAP is a pleasant into his apartment and does have expiratory wheezing and exam decreased to air movement. 01/09/2019 Patient is bit tachycardic probably because of theophylline. Patient was in a flat her as well presently on Cardizem drip now again patient has some rhonchi mild expiratory wheeze Constitutional: Denied any fatigue denied any fever. Cardio vascular: denied any chest pain, palpitations Gastrointestinal denied any nausea vomiting Pulmonary: Patient is feeling much better today still has some shortness of breath Neurologic denied any new focal deficits All inpatient medications were reviewed and appropriate changes in these medications as dictated in the interval history and assessment and plan. Objective - Vital Signs Vital signs: Vital Signs Temp 97.9 F 01/09/19 00:00 Pulse 123 H 01/09/19 12:00 Resp 12 01/09/19 12:00 BP 144/86 01/09/19 12:00 Pulse Ox 88 L 01/09/19 12:00 Intake & Output 01/08/19 01/09/19 01/09/19 18:59 06:59 18:59 Intake Total 600 500 790 Output Total 1570 3555 950 Balance -970 -3055 -160 Weight 76.5 kg Intake: IV 275 Sodium Chloride 0.9% 1, 275 000 ml @ 25 mls/hr IV . Q24H [facility] Rx#:[id number] Oral 325 200 790 Hemodialysis 300 Output: Urine 1570 1045 950 Hemodialysis 2510 Other: Voiding Method Indwelling Catheter Indwelling Catheter Indwelling Catheter # Voids 1 - Exam PHYSICAL EXAMINATION: GENERAL: Alert oriented 3 off BiPAP on 2 L nasal cannula oxygen HEENT: Pupils are round and equally reacting to light. EOMI. No scleral icterus. No conjunctival pallor. Normocephalic, atraumatic. No pharyngeal erythema. No thyromegaly. CARDIOVASCULAR: S1 and S2 present. No murmurs, rubs, or gallops. PULMONARY: Diminished bilaterally improved wheezing on exam, does have some rhonchi ABDOMEN: Soft, nontender, nondistended, normoactive bowel sounds. No palpable organomegaly. MUSCULOSKELETAL: No joint swelling or deformity. EXTREMITIES: No cyanosis, clubbing, or pedal edema. NEUROLOGICAL: No focal deficits SKIN: No rashes. - Labs CBC & Chem 7: 01/09/19 04:37 01/09/19 04:43 Labs: Abnormal Lab Results - Last 24 Hours (Table) 01/08/19 01/08/19 01/09/19 Range/Units 16:50 20:46 04:37 WBC 19.6 H (3.8-10.6) k/uL RDW 16.8 H (11.5-15.5) % Neutrophils # 18.5 H (1.3-7.7) k/uL Lymphocytes # 0.0 L (1.0-4.8) k/uL Basophils # 0.3 H (0-0.2) k/uL Chloride (98-107) mmol/L Carbon Dioxide (22-30) mmol/L BUN (7-17) mg/dL Creatinine (0.52-1.04) mg/dL Glucose (74-99) mg/dL POC Glucose (mg/dL) 294 H 240 H (75-99) mg/dL 01/09/19 01/09/19 01/09/19 Range/Units 04:43 06:49 07:42 WBC (3.8-10.6) k/uL RDW (11.5-15.5) % Neutrophils # (1.3-7.7) k/uL Lymphocytes # (1.0-4.8) k/uL Basophils # (0-0.2) k/uL Chloride 86 L (98-107) mmol/L Carbon Dioxide 44 H* (22-30) mmol/L BUN 23 H (7-17) mg/dL Creatinine 0.42 L (0.52-1.04) mg/dL Glucose 219 H (74-99) mg/dL POC Glucose (mg/dL) 275 H 212 H (75-99) mg/dL 01/09/19 01/09/19 Range/Units 11:29 11:45 WBC (3.8-10.6) k/uL RDW (11.5-15.5) % Neutrophils # (1.3-7.7) k/uL Lymphocytes # (1.0-4.8) k/uL Basophils # (0-0.2) k/uL Chloride (98-107) mmol/L Carbon Dioxide (22-30) mmol/L BUN (7-17) mg/dL Creatinine (0.52-1.04) mg/dL Glucose (74-99) mg/dL POC Glucose (mg/dL) 283 H 330 H (75-99) mg/dL Microbiology - Last 24 Hours (Table) 01/06/19 16:58 Blood Culture - Preliminary Blood No Growth after 48 hours Assessment and Plan Plan: Acute on chronic hypercapnic respiratory failure secondary to COPD exacerbation patient is off BiPAP continued and is on 2 L of nasal cannula arms and patient uses 2 L at home with systemic steroids inhalational treatments. Continue with antibiotics. -New-onset A. fib patient has rapid ventricular rate again patient heart rate went up probably because of theophylline, patient is back on Cardizem IV -History of pulmonary embolism and is on anticoagulation -Hypothyroidism -Hypertension --Hyperlipidemia -Anxiety disorder -Severe mitral regurgitation with moderate pulmonary hypertension with RVSP of 57 For above-mentioned chronic medical problems patient will be resumed and continued on appropriate home medications.
[2019-01-09 16:37] LABS: Glucose,Whole Blood 292 mg/dL (75-99)
[2019-01-09 20:46] LABS: Glucose,Whole Blood 223 mg/dL (75-99)
[2019-01-10] MEDS: KETOROLAC 30 MG/ML 1 ML VIAL IVP SCH ×4 (00:03→16:54)
[2019-01-10] MEDS: methylPREDNISolone SOD SUCCI 125 MG/2 ML VIAL IV SCH ×5 (00:04→23:20)
[2019-01-10] MEDS: ALPRAZolam 0.25 MG TAB PO PRN (03:33)
[2019-01-10] MEDS: LORazepam 2 MG/ML INJ IV PRN (04:07)
[2019-01-10] MEDS: LEVOTHYROXINE 50 MCG TAB PO SCH (05:51)
[2019-01-10 06:09] LABS: Glucose,Whole Blood 243 mg/dL (75-99)
[2019-01-10 06:21] LABS: Magnesium 2.2 mg/dL (1.6-2.3); Potassium 3.2 mmol/L (3.5-5.1)
[2019-01-10] MEDS: INSULIN ASPART (NovoLOG) 100 UNIT/ML VIAL SQ SCH ×4 (06:35→21:55)
[2019-01-10] MEDS: IPRATROPIUM-ALBUTEROL 3 ML NEB INHALATION SCH ×4 (07:27→19:14)
[2019-01-10] MEDS: BUDESONIDE 1 MG/2 ML NEBU INHALATION SCH ×2 (07:27→19:14)
[2019-01-10] MEDS: FORMOTEROL FUMARATE 20 MCG/2 ML NEBU INHALATION SCH ×2 (07:27→19:14)
[2019-01-10] MEDS: SPIRONOLACTONE 25 MG TAB PO SCH (08:13)
[2019-01-10] MEDS: ASPIRIN 81 MG PO SCH (08:13)
[2019-01-10] MEDS: FUROSEMIDE 20 MG TAB PO SCH (08:13)
[2019-01-10] MEDS: PREGABALIN 50 MG CAP PO SCH ×2 (08:13→21:55)
[2019-01-10] MEDS: clonazePAM 0.5 MG TAB PO SCH ×2 (08:13→21:55)
[2019-01-10] MEDS: LISINOPRIL 10 MG TAB PO SCH (08:14)
[2019-01-10] MEDS: ATORVASTATIN 20 MG TAB PO SCH (08:14)
[2019-01-10] MEDS: DILTIAZEM CD 240 MG CAP.ER.24H PO SCH (08:14)
[2019-01-10] MEDS: FLUCONAZOLE 100 MG TAB PO SCH (08:14)
[2019-01-10] MEDS: MONTELUKAST 10 MG TAB PO SCH (08:14)
[2019-01-10] MEDS: NYSTATIN 100,000UNIT/GM CREAM 30 GM TUBE TOPICAL SCH ×2 (08:14→23:21)
[2019-01-10] MEDS: TAMSULOSIN 0.4 MG CAP.ER.24H PO SCH (08:14)
[2019-01-10] MEDS: DIGOXIN 125 MCG TAB PO SCH (08:14)
[2019-01-10] MEDS: RIVAROXABAN 20 MG TAB PO SCH (08:14)
[2019-01-10] MEDS: POLYETHYLENE GLYCOL 3350 17 GM POWD.PACK PO SCH (08:14)
[2019-01-10] MEDS: DULoxetine HCL 60 MG CAPSULE.DR PO SCH (08:14)
[2019-01-10] MEDS: NICOTINE 14MG/24HR PATCH TRANSDERM SCH (08:18)
[2019-01-10] MEDS ORDERED: Potassium Replacement Protocol 1 EACH MISC MISCELLANE PRN ×2 (10:26→16:58)
--- NOTE | 2019-01-10 10:32 | P.PN ---
Subjective Progress Note Date: 01/10/19 Patient is a 63-year-old female with a past medical history of COPD on home home oxygen, hypertension, dyslipidemia, valvular heart disease, CVA , PE anticoagulated with Xarelto, and current smoker who presented with complaints of shortness of breath. He follows with Dr. Silva in the office. She was r ecently discharged a few days ago after COPD exacerbation. States she continues to have a productive cough with green sputum, low-grade fevers, and shortness of breath. Denies any palpitations or chest pain. Remaining in normal sinus rhythm this morning. 01/10/2019 Patient seen and examined this morning, sitting up in the chair at bedside. Blood pressure 142/70 with a heart rate of 110-120 this morning, 90% on 2 L of oxygen. Potassium 3.2 today, magnesium 2.2. Still short of breath, continues to have congestive cough. Objective - Vital Signs Vital signs: Vital Signs Temp 98.3 F 01/10/19 08:00 Pulse 131 H 01/10/19 08:00 Resp 16 01/10/19 08:00 BP 143/73 01/10/19 08:00 Pulse Ox 90 L 01/10/19 08:00 Intake & Output 01/09/19 01/10/19 01/10/19 18:59 06:59 18:59 Intake Total 1230 120 Output Total 1750 120 Balance -520 0 Weight 58.5 kg 58.5 kg Intake: Oral 1230 120 Output: Urine 1750 120 Other: Voiding Method Indwelling Catheter Indwelling Catheter # Voids 1 - Exam Patient seen and examined sitting up in chair bed, tachypnic breath sound diminished with diffuse wheezing and scattered rhonchi bilaterally Heart is regular, no audible murmurs No elevated JVD Trace lower extremity edema - Labs CBC & Chem 7: 01/09/19 04:37 01/10/19 05:19 Labs: Abnormal Lab Results - Last 24 Hours (Table) 01/09/19 01/09/19 01/09/19 Range/Units 11:29 11:45 16:25 Potassium (3.5-5.1) mmol/L POC Glucose (mg/dL) 283 H 330 H 292 H (75-99) mg/dL 01/09/19 01/10/19 01/10/19 Range/Units 20:45 05:19 06:07 Potassium 3.2 L (3.5-5.1) mmol/L POC Glucose (mg/dL) 223 H 243 H (75-99) mg/dL Microbiology - Last 24 Hours (Table) 01/06/19 16:58 Blood Culture - Preliminary Blood No Growth after 72 hours Assessment and Plan Plan: Assessment: #1. Acute on chronic hypoxemic respiratory failure secondary to acute exacerbation of chronic obstructive pulmonary disease complicated by tracheobronchitis #2. New-onset A. fib RVR, patient has since converted to sinus rhythm, paroxysmal #3. History of pulmonary embolism on Xarelto #4. Recent hospitalization at [facility] for COPD exacerbation, patient was discharged home on accommodation of prednisone and doxycycline #5. Advanced COPD on home oxygen at 3 L, and maintenance dose prednisone #6. Former smoker #7. Hypothyroidism #8. Previous history of CVA #9. Hypertension #10. Hyperlipidemia #11. Anxiety #12. Chronic left leg swelling, and there is bruising involving the left foot, denies any recent trauma #13. Degenerative disc disease #14. Valvular heart disease, severe mitral regurgitation, and moderate pulmonary hypertension with PA systolic of 57 mmHg is seen on the echocardiogram from May 2018 Plan We will increase the dose of Cardizem CD to 360 mg by mouth daily, continue the rest of the patient's medications. DNP note has been reviewed, I agree with a documented findings and plan of care. Patient was seen and examined.
[2019-01-10 11:49] LABS: Glucose,Whole Blood 257 mg/dL (75-99)
--- NOTE | 2019-01-10 11:53 | P.PN ---
Subjective 63-year-old female was admitted for presumed exacerbation patient is a presently on BiPAP patient is also being treated for A. fib Ventricular rate and patient is being digitalized patient is already on Cardizem and anti-correlation. Patient was transferred from regular floor to [facility] because of respiratory failure and A. fib with rapid ventricular rate with heart rate going up to 160s 01/07/2019 Patient heart rate is better controlled but the patient remains on BiPAP patient is unable to tolerate when she is off BiPAP. 01/08/2019 Patient is on off BiPAP is a pleasant into his apartment and does have expiratory wheezing and exam decreased to air movement. 01/09/2019 Patient is bit tachycardic probably because of theophylline. Patient was in a flat her as well presently on Cardizem drip now again patient has some rhonchi mild expiratory wheeze 01/10/2019 Patient on nasal cannula oxygen. Patient is bit tiredbecause of opiates and benzodiazepines patient is on multiple of them. And this can use some of these medications. Patient is rate controlled patient still has rhonchi along with some expiratory wheeze. Constitutional: Denied any fatigue denied any fever. Cardio vascular: denied any chest pain, palpitations Gastrointestinal denied any nausea vomiting Pulmonary: Patient is feeling much better today still has some shortness of breath Neurologic denied any new focal deficits All inpatient medications were reviewed and appropriate changes in these medications as dictated in the interval history and assessment and plan. Objective - Vital Signs Vital signs: Vital Signs Temp 98.3 F 01/10/19 08:00 Pulse 100 01/10/19 11:15 Resp 16 01/10/19 08:00 BP 143/73 01/10/19 08:00 Pulse Ox 90 L 01/10/19 08:00 Intake & Output 01/09/19 01/10/19 01/10/19 18:59 06:59 18:59 Intake Total 1230 120 Output Total 1750 120 Balance -520 0 Weight 58.5 kg 58.5 kg Intake: Oral 1230 120 Output: Urine 1750 120 Other: Voiding Method Indwelling Catheter Indwelling Catheter Indwelling Catheter # Voids 1 800 # Bowel Movements 1 - Exam PHYSICAL EXAMINATION: GENERAL: Alert oriented 3 off BiPAP on 2 L nasal cannula oxygen HEENT: Pupils are round and equally reacting to light. EOMI. No scleral icterus. No conjunctival pallor. Normocephalic, atraumatic. No pharyngeal erythema. No thyromegaly. CARDIOVASCULAR: S1 and S2 present. No murmurs, rubs, or gallops. PULMONARY: Diminished bilaterally improved wheezing on exam, does have some rhonchi ABDOMEN: Soft, nontender, nondistended, normoactive bowel sounds. No palpable organomegaly. MUSCULOSKELETAL: No joint swelling or deformity. EXTREMITIES: No cyanosis, clubbing, or pedal edema. NEUROLOGICAL: No focal deficits SKIN: No rashes. - Labs CBC & Chem 7: 01/09/19 04:37 01/10/19 05:19 Labs: Abnormal Lab Results - Last 24 Hours (Table) 01/09/19 01/09/19 01/09/19 Range/Units 11:45 16:25 20:45 Potassium (3.5-5.1) mmol/L POC Glucose (mg/dL) 330 H 292 H 223 H (75-99) mg/dL 01/10/19 01/10/19 01/10/19 Range/Units 05:19 06:07 11:46 Potassium 3.2 L (3.5-5.1) mmol/L POC Glucose (mg/dL) 243 H 257 H (75-99) mg/dL Microbiology - Last 24 Hours (Table) 01/06/19 16:58 Blood Culture - Preliminary Blood No Growth after 72 hours Assessment and Plan Plan: Acute on chronic hypercapnic respiratory failure secondary to COPD exacerbation patient is off BiPAP continued and is on 2 L of nasal cannula arms and patient uses 2 L at home with systemic steroids inhalational treatments. Continue with antibiotics. -New-onset A. fib presently rate controlled patient is on oral Cardizem which will be continued and continue with digoxin and theophylline was discontinued. ,-Fatigue and tiredness secondary to polypharmacy -History of pulmonary embolism and is on anticoagulation -Hypothyroidism -Hypertension --Hyperlipidemia -Anxiety disorder -Severe mitral regurgitation with moderate pulmonary hypertension with RVSP of 57 For above-mentioned chronic medical problems patient will be resumed and continued on appropriate home medications.
--- NOTE | 2019-01-10 12:20 | P.PN ---
Subjective Progress Note Date: 01/10/19 Principal diagnosis: Shortness of breath, cough, wheezing This is a 63-year-old white female patient with past medical history of COPD, and patient is on home oxygen at 2 L, and maintenance dose prednisone, previous history of CVA/TIA, hypertension, hyperlipidemia, previous history of pulmonary embolism on Xarelto, hypothyroidism, anxiety, and former smoker, who was recently hospitalized at the [facility] and discharged home a week ago for acute exacerbation of COPD. Patient states she was treated with the IV steroids, nebulized treatments and doxycycline, she was discharged home a week ago, however she felt that she did not significantly improve, she was seen in the emergency room at [facility] on 12/30/2018 with complaints of productive cough, difficulty breathing, chills and shakes, patient at that time left AGAINST MEDICAL ADVICE. On 01/01/2019 18 came back for reevaluation with worsening dyspnea, cough, congestion, she states she just couldn't breathe, she is experiencing some chest tightness, she states she is bringing up some foul smelling and foul tasting green colored phlegm. Denied any chest pain, reports some subjective chills, she reports some swelling in her lower extremities, there is significant bruising to her left foot, and patient denies any recent trauma to it. He was found to be in A. fib RVR, she was placed on Cardizem drip, and she has currently converted to sinus rhythm, he was started on IV steroids, empiric antibiotics in the form of Levaquin, breathing treatments, she is on 5 L of O2, she states she at times feel like she is going to , and not leave the hospital. No fever, hemodynamically stable, lung sounds reveal diminished breath sounds with diffuse wheezes, patient does not appear to be in any acute distress. Chest x-ray was reviewed showing a mild persistent plate atelectasis at the left lung base. On 01/03/2019 patient seen in follow-up on selective care unit, patient to be lethargic, but arousable, she is currently on BiPAP, and apparent that she wore the BiPAP support overnight, she states that she is comfortable on a, breathing easier, she states she briefly had it off when her sisters were visiting and she was extremely dyspneic, and she preferred to be placed back on BiPAP, current pressures at 10/5, and FiO2 of 50%. Patient has been afebrile, hemodynamically stable. Antibiotic coverage is now with Augmentin, Levaquin was discontinued, but culture so far shows no growth, and Lavinia have been unable to collect a sputum culture, no complains of chest pain, IV steroids and nebulized bronchodilators continue. D-dimer was negative, troponin was negative. Echocardiogram showed preserved left ventricle systolic function, left ventricular hypertrophy, EF of 60-65%, moderate pulmonary hypertension with a PA systolic of 51.3 mmHg. On 01/04/2019 patient seen in follow-up on selective care unit, she is awake and alert, although she states she has been more sleepy lately, and she is wondering if it's her Klonopin making her more fatigued and sleepy, currently she is answ ering questions appropriately, she is awake, she is up in the chair, she has been able to ambulate to the bathroom with assistance, tolerated activity early well, she has been wearing BiPAP support most of the night, and intermittently throughout the day, she has been on nasal cannula for meals, still sounds quite bronchospastic, however somewhat improved since admission, she is occasionally bringing up some thick green colored sputum, her current antibiotic coverage is with Augmentin. Culture showed no growth, sputum culture has not been sent yet. Yesterday's blood gases were called in to us, and patient first had a blood gas showing pO2 of 140, pCO2 of 75% and pH of 7.35, this was done and FiO2 of 50% on BiPAP support with pressures of 10 and 5, and her FiO2 was then dropped to 35%, subsequently patient had another repeat blood gas showing pO2 of 83, pCO2 of 72, and pH of 7.40, this was done on 35%, and this is consistent with chronic hypercapnic respiratory failure. On 01/05/2018 patient seen in follow-up on medical surgical floor. She is on BiPAP, with pressures of 12 and 5, and FiO2 of 35%, she is lethargic, but arouses, she states she did not come off the BiPAP to eat because she is having increased shortness of breath, remains on oral antibiotics, IV steroids, and neb ulized bronchodilators. She has been slow to improve. She has had 2 sets of blood gases that demonstrated chronic hypercapnic respiratory failure, without evidence of acute decompensation, we will repeat another set of blood gas this morning, we adjusted her doses of Klonopin and Xanax. Lung sounds positive for diffuse wheezes and rhonchi. On 01/08/2019 patient seen in follow-up in the intensive care unit, she remains on BiPAP support with pressures of 12/5 and FiO2 of 30%. She is wearing the BiPAP most of the time, we will try Ventimask this morning, and we will titrate the oxygen to keep her O2 sat is 88% or above. Chest x-ray today, less chest x- ray within on 01/05/2017 showing chronic parenchymal changes and mild cardiomegaly without acute pulmonary process. She remains sinus rhythm sinus tach, and her rate is better controlled, currently on oral Cardizem. And she is on Xarelto for anticoagulation for history of atrial fibrillation. She is on empiric antibiotics, she is not able to cough up much sputum, blood cultures are negative, no fever or chills. She has made little improvement since admission, despite the next best medical treatment. Discussed CODE STATUS with her last weekend patient decided to be DO NOT RESUSCITATE CODE STATUS. Patient has been tried on nasal cannula a few times, however she rapidly desaturates and becomes short of breath and has to be placed back on BiPAP. Lung sounds are diminished, with diffuse crackles and rhonchi, and some wheezes, today's labs have been reviewed, showing white blood cell count of 10.7, hemoglobin of 11.6, sodium of 137, potassium is 4.4, chloride is 88, CO2 is 47, B1 is 29 creatinine 0.43. 0.9 normal saline infusing at 75 ML per hour, patient has developed mild edema in her lower extremities, and we will contact IV fluids to KVO. On 01/09/2019 seen in follow-up in the intensive care unit, she is currently on 35% Ventimask, her pulse ox is 88%, overnight patient's heart rate became more tachycardic likely in response to theophylline. This morning she is in A. fib flutter with a rate of 167 BPM, she is currently on Cardizem drip at 15 mg per hour. Pressures 149/78, still dyspneic, congested, and has a congested cough, not bringing up much sputum. Lung sounds are positive for diffuse rhonchi, and some wheezes, she remains on IV Solu-Medrol, 10 mg every 6 hours. Remains on nebulized bronchodilators, and antibiotics, cultures are negative thus far, unable to obtain sputum culture. No fever or chills. These labs have been reviewed, WBC is 19.6, hemoglobin is 12.4, sodium is 137, potassium is 3.8, chloride is 86, CO2 is 44, B1 is 23, creatinine is 0.42. She is on oral anticoagulation in the form of Xarelto. On 01/10/2019 patient is seen in follow-up on [facility] care unit. Doing much better, she is currently on 2 L of oxygen her pulse ox is 90%, she is afebrile, still remains in A. fib, tachycardia, with a rate of 131, still has a loose congested cough, not bringing up much sputum, overall she seems to have improved, as bronchospastic, she remains on IV steroids, nebulized bro nchodilators. Cultures have remained negative, patient is on fluconazole and doxycycline for antibiotic coverage. No new labs today. Patient is still very short of breath with any activity, not back to baseline, but overall has improved, did not require BiPAP support last night. Objective - Vital Signs Vital signs: Vital Signs Temp 98.3 F 01/10/19 08:00 Pulse 100 01/10/19 11:15 Resp 16 01/10/19 08:00 BP 143/73 01/10/19 08:00 Pulse Ox 90 L 01/10/19 08:00 Intake & Output 01/09/19 01/10/19 01/10/19 18:59 06:59 18:59 Intake Total 1230 120 Output Total 1750 120 Balance -520 0 Weight 58.5 kg 58.5 kg Intake: Oral 1230 120 Output: Urine 1750 120 Other: Voiding Method Indwelling Catheter Indwelling Catheter Indwelling Catheter # Voids 1 800 # Bowel Movements 1 - Exam GENERAL EXAM: pleasant, 63-year-old white female, on 2 L of oxygen pulse ox of 90% EYES: Normal reaction of pupils, equal size. Conjunctiva pink, sclera white. NOSE: Clear with pink turbinates. THROAT: No erythema or exudates. NECK: No masses, no JVD, no thyroid enlargement, no adenopathy. CHEST: No chest wall deformity. Symmetrical expansion. LUNGS: Equal air entry with diffuse scattered rhonchi CVS: Irregular rate and rhythm, normal S1 and S2, no gallops, no murmurs, no rubs ABDOMEN: Soft, nontender. No hepatosplenomegaly, normal bowel sounds, no guarding or rigidity. EXTREMITIES: No clubbing, trace lower extremity edema left greater than the right, no cyanosis, 2+ pulses and upper and lower extremities. There are extensive bruises involving the left foot, left lower leg, and to a lesser degree right lower leg, toes on the left foot, and patient denies any recent trauma, he is on chronic anticoagulation MUSCULOSKELETAL: Muscle strength and tone normal. SPINE: No scoliosis or deformity SKIN: No rashes CENTRAL NERVOUS SYSTEM: Alert and oriented -3. No focal deficits, tone is normal in all 4 extremities. PSYCHIATRIC: Alert and oriented -3. Appropriate affect. Intact judgment and insight. - Labs CBC & Chem 7: 01/09/19 04:37 01/10/19 05:19 Labs: Abnormal Lab Results - Last 24 Hours (Table) 01/09/19 01/09/19 01/10/19 Range/Units 16:25 20:45 05:19 Potassium 3.2 L (3.5-5.1) mmol/L POC Glucose (mg/dL) 292 H 223 H (75-99) mg/dL 01/10/19 01/10/19 Range/Units 06:07 11:46 Potassium (3.5-5.1) mmol/L POC Glucose (mg/dL) 243 H 257 H (75-99) mg/dL Microbiology - Last 24 Hours (Table) 01/06/19 16:58 Blood Culture - Preliminary Blood No Growth after 72 hours Assessment and Plan Plan: Assessment: #1. Acute on chronic hypoxemic respiratory failure secondary to acute exacerbation of chronic obstructive pulmonary disease complicated by tracheobronchitis #2. Chronic hypercapnic respiratory failure related to advanced COPD #3. New-onset A. fib RVR, patient has since converted to sinus rhythm #4. History of pulmonary embolism on Xarelto #5. Recent hospitalization at [facility] for COPD exa cerbation, patient was discharged home on combination of prednisone and doxycycline #6. Advanced COPD on home oxygen at 3 L, and maintenance dose prednisone #7. Former smoker #8. Hypothyroidism #9. Previous history of CVA #10. Hypertension #11. Hyperlipidemia #12. Anxiety #13. Chronic left leg swelling, and there is bruising involving the left foot, denies any recent trauma #14. Degenerative disc disease #15. Valvular heart disease, severe mitral regurgitation, and moderate pu lmonary hypertension with PA systolic of 57 mmHg is seen on the echocardiogram from May 2018 Plan: Continue current antibiotic coverage, continue IV steroids, nebulized bronchodilators, theophylline is on hold, patient remains in A. fib with RVR, she is on oral anticoagulation. Cardiology is following, IV Cardizem has been switched to oral Cardizem extended release. Overall she is improving, still short of breath and congested, but less bronchospastic, and she is awake, and alert, and did not require BiPAP support last night. We will continue with current medical treatment, we will continue to follow I performed a history & physical examination of the patient and discussed their management with my nurse practitioner, Renee Dior. I reviewed the nurse practitioner's note and agree with the documented findings and plan of care. Lung sounds are positive for diffuse rhonchi. The findings and the impression was discussed with the patient. I attest to the documentation by the nurse practitioner. Time with Patient: Less than 30
[2019-01-10] MEDS: MORPHINE SULFATE ER 30 MG TABLET PO PRN (12:21)
[2019-01-10] MEDS: DOXYCYCLINE 100 MG CAP PO SCH ×2 (12:50→23:20)
[2019-01-10 16:44] LABS: Glucose,Whole Blood 198 mg/dL (75-99)
[2019-01-10] MEDS: POTASSIUM CHLORIDE ER 20 MEQ TAB.ER PO SCH ×2 (17:05→18:25)
[2019-01-10 21:20] LABS: Glucose,Whole Blood 365 mg/dL (75-99)
[2019-01-11 02:03] LABS: Glucose,Whole Blood 278 mg/dL (75-99)
[2019-01-11 06:29] LABS: Glucose,Whole Blood 270 mg/dL (75-99)
[2019-01-11] MEDS: LEVOTHYROXINE 50 MCG TAB PO SCH (06:41)
[2019-01-11] MEDS: methylPREDNISolone SOD SUCCI 125 MG/2 ML VIAL IV SCH ×2 (06:41→11:27)
[2019-01-11 07:03] LABS: Anisocytosis Slight; HCT 34.1 % (34.0-46.0); HGB 10.6 gm/dL (11.4-16.0); Hypochromasia Slight; MCH 26.7 pg (25.0-35.0); MCHC 31.1 g/dL (31.0-37.0); MCV 85.8 fL (80.0-100.0); Mean Platelet Volume 7.4; Platelet Count 199 k/uL (150-450); RBC 3.98 m/uL (3.80-5.40); WBC 19.5 k/uL (3.8-10.6)
[2019-01-11] MEDS ORDERED: INSULIN REGULAR BOLUS (FROM DRIP BAG) IV ONE (07:25)
[2019-01-11 07:38] LABS: African American GFR (CKD) >90 (>60 ml/min/1.73 sqM); Anion Gap 5 mmol/L; Blood Urea Nitrogen 23 mg/dL (7-17); Calcium 9.1 mg/dL (8.4-10.2); Carbon Dioxide 40 mmol/L (22-30); Chloride 91 mmol/L (98-107); Glucose 229 mg/dL (74-99); Potassium 4.5 mmol/L (3.5-5.1); Sodium 136 mmol/L (137-145)
[2019-01-11] MEDS: MORPHINE SULFATE ER 30 MG TABLET PO SCH (07:38)
[2019-01-11] MEDS: IPRATROPIUM-ALBUTEROL 3 ML NEB INHALATION SCH ×4 (07:46→20:04)
[2019-01-11] MEDS: FORMOTEROL FUMARATE 20 MCG/2 ML NEBU INHALATION SCH ×2 (07:46→20:04)
[2019-01-11] MEDS: BUDESONIDE 1 MG/2 ML NEBU INHALATION SCH ×2 (07:46→20:04)
[2019-01-11] MEDS: MORPHINE SULFATE ER 30 MG TABLET PO PRN (08:08)
[2019-01-11 08:26] LABS: Glucose,Whole Blood 383 mg/dL (75-99)
[2019-01-11] MEDS: INSULIN REGULAR 100 UNIT in SODIUM CHLORIDE 0.9% 100 ML IV SCH (08:29)
[2019-01-11 09:06] LABS: Glucose,Whole Blood 252 mg/dL (75-99)
[2019-01-11] MEDS: INSULIN ASPART (NovoLOG) 100 UNIT/ML VIAL SQ SCH ×3 (09:06→17:28)
[2019-01-11] MEDS: PREGABALIN 50 MG CAP PO SCH ×2 (09:29→20:35)
[2019-01-11] MEDS: DIGOXIN 125 MCG TAB PO SCH (09:30)
[2019-01-11] MEDS: FUROSEMIDE 20 MG TAB PO SCH (09:30)
[2019-01-11] MEDS: DOXYCYCLINE 100 MG CAP PO SCH ×2 (09:30→20:36)
[2019-01-11] MEDS: TAMSULOSIN 0.4 MG CAP.ER.24H PO SCH (09:30)
[2019-01-11] MEDS: RIVAROXABAN 20 MG TAB PO SCH (09:30)
[2019-01-11] MEDS: DILTIAZEM CD 180 MG CAP.ER.24H PO SCH (09:31)
[2019-01-11] MEDS: SPIRONOLACTONE 25 MG TAB PO SCH (09:32)
[2019-01-11] MEDS: FLUCONAZOLE 100 MG TAB PO SCH (09:32)
[2019-01-11] MEDS: clonazePAM 0.5 MG TAB PO SCH ×2 (09:32→20:36)
[2019-01-11] MEDS: ASPIRIN 81 MG PO SCH (09:32)
[2019-01-11] MEDS: ATORVASTATIN 20 MG TAB PO SCH (09:32)
[2019-01-11] MEDS: DULoxetine HCL 60 MG CAPSULE.DR PO SCH (09:32)
[2019-01-11] MEDS: LISINOPRIL 10 MG TAB PO SCH (09:32)
[2019-01-11] MEDS: NICOTINE 14MG/24HR PATCH TRANSDERM SCH (09:33)
[2019-01-11] MEDS: POLYETHYLENE GLYCOL 3350 17 GM POWD.PACK PO SCH (09:33)
[2019-01-11] MEDS: NYSTATIN 100,000UNIT/GM CREAM 30 GM TUBE TOPICAL SCH ×2 (09:33→20:37)
[2019-01-11] MEDS: MONTELUKAST 10 MG TAB PO SCH (09:37)
[2019-01-11 09:40] LABS: Glucose,Whole Blood 198 mg/dL (75-99)
--- NOTE | 2019-01-11 10:41 | P.PN ---
Subjective Progress Note Date: 01/11/19 Patient is a 63-year-old female with a past medical history of COPD on home home oxygen, hypertension, dyslipidemia, valvular heart disease, CVA , PE anticoagulated with Xarelto, and current smoker who presented with complaints of shortness of breath. He follows with Dr. Silva in the office. She was r ecently discharged a few days ago after COPD exacerbation. States she continues to have a productive cough with green sputum, low-grade fevers, and shortness of breath. Denies any palpitations or chest pain. Remaining in normal sinus rhythm this morning. 01/10/2019 Patient seen and examined this morning, sitting up in the chair at bedside. Blood pressure 142/70 with a heart rate of 110-120 this morning, 90% on 2 L of oxygen. Potassium 3.2 today, magnesium 2.2. Still short of breath, continues to have congestive cough. 01/11/2019 Patient seen and examined this morning, sitting up in the chair at bedside. Quite short of breath, moving from bedside to chair, otherwise the patient seems to be improving overall. In normal sinus rhythm this morning, heart rate 90. Blood pressure 120/60. Plasma lactic acid level III.6. Objective - Vital Signs Vital signs: Vital Signs Temp 97.4 F L 01/11/19 08:00 Pulse 92 01/11/19 08:10 Resp 20 01/11/19 08:00 BP 146/57 01/11/19 08:00 Pulse Ox 92 L 01/11/19 04:00 Intake & Output 01/10/19 01/11/19 01/11/19 18:59 06:59 18:59 Intake Total 600 140.416 Output Total 700 300 Balance -100 -300 140.416 Weight 76 kg Intake: Intake, IV Titration 20.416 Amount Insulin Regular 100 unit 20.416 In Sodium Chloride 0.9% 100 ml @ Titrate IV .Q0M [facility] Rx#:[id number] Oral 600 120 Output: Urine 700 300 Other: Voiding Method Indwelling Catheter Indwelling Catheter Indwelling Catheter # Voids 800 1 # Bowel Movements 1 - Exam PHYSICAL EXAMINATION: GENERAL: 63-year-old gentleman in no acute distress at the time of my examination HEENT: Head is atraumatic, normocephalic. Pupils equal, round. Sclera anicteric. Conjunctiva are clear. Mucous membranes of the mouth are moist. Neck is supple. There is no elevated jugular venous pressure. No carotid bruit is heard. HEART EXAMINATION: Heart S1, S2 normal. No murmur or gallop heard. CHEST EXAMINATION: Lungs reveal improvement in air entry, fine wheezes throughout, rhonchi is also improving, seems to clear more with cough. ABDOMEN: Soft, nontender. Bowel sounds are heard. No organomegaly noted. EXTREMITIES: 2+ peripheral pulses with no evidence of peripheral edema and no calf tenderness noted. NEUROLOGIC patient is awake, alert and oriented 3 . . - Labs CBC & Chem 7: 01/11/19 05:38 01/11/19 05:38 Labs: Abnormal Lab Results - Last 24 Hours (Table) 01/10/19 01/10/19 01/10/19 Range/Units 11:46 16:39 21:18 WBC (3.8-10.6) k/uL Hgb (11.4-16.0) gm/dL RDW (11.5-15.5) % Sodium (137-145) mmol/L Chloride (98-107) mmol/L Carbon Dioxide (22-30) mmol/L BUN (7-17) mg/dL Creatinine (0.52-1.04) mg/dL Glucose (74-99) mg/dL POC Glucose (mg/dL) 257 H 198 H 365 H (75-99) mg/dL Plasma Lactic Acid Shailesh (0.7-2.0) mmol/L 01/11/19 01/11/19 01/11/19 Range/Units 02:01 05:38 05:38 WBC 19.5 H (3.8-10.6) k/uL Hgb 10.6 L (11.4-16.0) gm/dL RDW 17.0 H (11.5-15.5) % Sodium 136 L (137-145) mmol/L Chloride 91 L (98-107) mmol/L Carbon Dioxide 40 H (22-30) mmol/L BUN 23 H (7-17) mg/dL Creatinine 0.39 L (0.52-1.04) mg/dL Glucose 229 H (74-99) mg/dL POC Glucose (mg/dL) 278 H (75-99) mg/dL Plasma Lactic Acid Shailesh (0.7-2.0) mmol/L 01/11/19 01/11/19 01/11/19 Range/Units 06:27 08:24 09:05 WBC (3.8-10.6) k/uL Hgb (11.4-16.0) gm/dL RDW (11.5-15.5) % Sodium (137-145) mmol/L Chloride (98-107) mmol/L Carbon Dioxide (22-30) mmol/L BUN (7-17) mg/dL Creatinine (0.52-1.04) mg/dL Glucose (74-99) mg/dL POC Glucose (mg/dL) 270 H 383 H 252 H (75-99) mg/dL Plasma Lactic Acid Shailesh (0.7-2.0) mmol/L 01/11/19 01/11/19 Range/Units 09:21 09:38 WBC (3.8-10.6) k/uL Hgb (11.4-16.0) gm/dL RDW (11.5-15.5) % Sodium (137-145) mmol/L Chloride (98-107) mmol/L Carbon Dioxide (22-30) mmol/L BUN (7-17) mg/dL Creatinine (0.52-1.04) mg/dL Glucose (74-99) mg/dL POC Glucose (mg/dL) 198 H (75-99) mg/dL Plasma Lactic Acid Shailesh 3.6 H* (0.7-2.0) mmol/L Microbiology - Last 24 Hours (Table) 01/06/19 16:58 Blood Culture - Preliminary Blood No Growth after 96 hours Assessment and Plan Plan: Assessment: #1. Acute on chronic hypoxemic respiratory failure secondary to acute exacerbation of chronic obstructive pulmonary disease complicated by tracheobronchitis #2. New-onset A. fib RVR, patient has since converted to sinus rhythm, paroxysmal #3. History of pulmonary embolism on Xarelto #4. Recent hospitalization at [facility] for COPD exacerbation, patient was discharged home on accommodation of prednisone and doxycycline #5. Advanced COPD on home oxygen at 3 L, and maintenance dose prednisone #6. Former smoker #7. Hypothyroidism #8. Previous history of CVA #9. Hypertension #10. Hyperlipidemia #11. Anxiety #12. Chronic left leg swelling, and there is bruising involving the left foot, denies any recent trauma #13. Degenerative disc disease #14. Valvular heart disease, severe mitral regurgitation, and moderate pulmonary hypertension with PA systolic of 57 mmHg is seen on the echocardiogram from May 2018 Plan Patient remaining in normal sinus rhythm, heart rate in the 90 range today. We will recommend to continue her on her current medications. DNP note has been reviewed, I agree with a documented findings and plan of care. Patient was seen and examined.
[2019-01-11] MEDS ORDERED: LACTATED RINGERS 1,000 ML IV SCH (11:00)
[2019-01-11 11:59] LABS: Glucose,Whole Blood 152 mg/dL (75-99)
[2019-01-11 13:38] LABS: Glucose,Whole Blood 185 mg/dL (75-99)
--- NOTE | 2019-01-11 14:28 | PN ---
PROGRESS NOTE PULMONARY/CRITICAL CARE PROGRESS NOTE: DATE OF SERVICE: 01/11/2019 A 63-year-old female who spent a number of days in the ICU with acute on chronic hypoxemic and hypercapnic respiratory failure. She has quite severe COPD. Actually, the last 2 days has seen some improvement in her overall condition. She feels less short of breath. She is still coughing and wheezing. She is bringing up a small amount of white phlegm. Still feels very short of breath with any activity. She is hoping to be able to be discharged to rehab soon. She does have a history of new onset atrial fibrillation, now normal sinus rhythm, history of PE, recent hospitalization at [facility] for COPD exacerbation, advanced COPD, former tobacco user, hypothyroidism, CVA, hypertension, hyperlipidemia, anxiety, chronic left foot swelling, DJD, and valvular heart disease with severe mitral regurgitation and moderate pulmonary hypertension. Anyway, the patient does seem to be a bit improved. Current vital signs good temperature 97.9, heart rate 103, respiratory rate 20, blood pressure 137/68 mean 91, 2 L saturations at 93%. Appears in no acute distress. Mildly dyspneic and tachypneic. No conversational dyspnea. No use of accessory muscles. No audible wheezing. HEENT: Examination is grossly unremarkable. Mucous membranes are moist. NECK: Supple. Full range of motion. No adenopathy, thyromegaly or neck vein distention. CARDIOVASCULAR: Examination reveals regular rhythm and rate. Heart rate about 100 beats per minute. She appears to be in sinus rhythm. S1, S2 normal. Heart sounds are distant. LUNGS: Reveal ongoing diffuse inspiratory and expiratory wheezes and rhonchi. There is prolongation on forced maneuver. Breath sounds are more prominent on forced maneuver. No crackles. ABDOMEN: Soft. Bowel sounds are heard. EXTREMITIES: Intact. Minimal edema. No cyanosis or clubbing. SKIN: Reveals multiple areas of ecchymoses. She has very thin fragile skin. NEUROLOGIC: Examination is brief but nonfocal. LAB DATA: Reviewed. White count 19.5, hemoglobin 10.6, hematocrit 34.1, platelet count 199,000. Sodium 136, potassium 4.5, chloride is 91, CO2 is 40, anion gap is 5. BUN and creatinine were 23 and 0.39. The CO2 concentration has come down very nicely from 48 down to 40. The rest of the labs look pretty good. The lactic acid was 3.6. Digoxin 0.5. No recent chest x-ray. The patient is a NO CODE. Microbiology is negative. MEDICATIONS: Reviewed. She is on appropriate medications including Pulmicort and formoterol as well as duo nebs, Solu-Medrol, Singulair, and doxycycline. ASSESSMENT: 1. Acute on chronic hypoxemic respiratory failure secondary to chronic obstructive pulmonary disease exacerbation complicated by purulent tracheobronchitis in a patient who has very advanced stage IV/end-stage chronic obstructive pulmonary disease. 2. Chronic hypercapnic respiratory failure secondary to chronic obstructive pulmonary disease. 3. New onset atrial fibrillation, now in normal sinus rhythm. 4. Previous history of pulmonary embolism, currently on a factor Xa inhibitor. 5. Recent hospitalization at [facility] for chronic obstructive pulmonary disease exacerbation, patient signed out AGAINST MEDICAL ADVICE. 6. Advanced oxygen-dependent chronic obstructive pulmonary disease. 7. Previous tobacco use. 8. Hypothyroidism. 9. History of cerebrovascular accident. 10.Hypertension by history. 11.Hyperlipidemia. 12.Anxiety. 13.Chronic left leg swelling. 14.Degenerative disc disease. 15.Valvular heart disease in the form of severe mitral regurgitation and moderate pulmonary hypertension. PLAN: Currently, the patient is doing well. Will continue to follow. Her overall prognosis remains poor though. She is a NO CODE. Will continue to provide her with all the appropriate medications including short-acting beta agonist, short-acting muscarinic antagonist, systemic corticosteroids, long-acting beta agonist, inhaled corticosteroids, and antibiotics. She is receiving all of that. Additional recommendations and suggestions are forthcoming. Hopeful discharge to rehab within the next couple days or so. MMODL / IJN: [id number] /
[2019-01-11 15:17] VITALS: BMI 30.6
[2019-01-11] MEDS: methylPREDNISolone SOD SUCCI 40 MG/ML 1 ML VIAL IV SCH ×2 (15:47→23:10)
[2019-01-11 15:50] LABS: Glucose,Whole Blood 165 mg/dL (75-99)
[2019-01-11 17:14] LABS: Glucose,Whole Blood 129 mg/dL (75-99)
[2019-01-11 19:20] LABS: Glucose,Whole Blood 197 mg/dL (75-99)
--- NOTE | 2019-01-11 19:38 | P.PN ---
Progress Note - Text Progress Note Date: 01/11/19 Chief Complaint: Short of breath Interval history: This is a pleasant 63-year-old patient of Dr. Trevor Hamilton. 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 Chronic stable medical conditions include hypertension, hyperlipidemia, mild cognitive impairment, hypothyroid, spinal stenosis, osteoarthritis, severe mitral and moderate tricuspid valve regurgitation. Patient about 2 weeks ago was admitted to [facility]. She is not sure of the diagnosis but it was a long issue. When she was discharged she says she really didn't feel much better. She continues to get progressively short of breath and wheezing. Was bringing up some phlegm green in color. Denies any fever and chills. She also been noticing increasing palpitation and heart skipping and flipping beats. Appetite is gone down. Weak and tired. Does use a cane or a walker. Patient was found to be in atrial fibrillation with rapid ventricular rate. This was initially started on IV antibiotics, IV steroids, IV Cardizem drip and admitted for the same. On January 03 patient reverted to sinus rhythm. Today-sitting up in a chair. Feels tired. Did eat small amounts. Has been on nasal cannula. Sugars were running high on insulin drip. Patient is getting back into atrial fibrillation. Review of systems: Was done for constitutional, cardiovascular, GI, pulmonary. relevant finding as above Active Medications Albuterol/Ipratropium (Duoneb 0.5 Mg-3 Mg/3 Ml Soln) 3 ml INHALATION RT-QID [facility] Last Admin: 01/11/19 15:36 Dose: 3 ml Documented by: Albuterol/Ipratropium (Duoneb 0.5 Mg-3 Mg/3 Ml Soln) 3 ml INHALATION RT-Q2H PRN PRN Reason: Shortness Of Breath Or Wheezing Last Admin: 01/09/19 03:05 Dose: 3 ml Documented by: Aspirin (Aspirin) 81 mg PO DAILY [facility] Last Admin: 01/11/19 09:32 Dose: 81 mg Documented by: Atorvastatin Calcium (Lipitor) 20 mg PO DAILY [facility] Last Admin: 01/11/19 09:32 Dose: 20 mg Documented by: Budesonide (Pulmicort) 1 mg INHALATION RT-BID [facility] Last Admin: 01/11/19 07:46 Dose: 1 mg Documented by: Clonazepam (Klonopin) 0.5 mg PO HS [facility] Last Admin: 01/10/19 21:55 Dose: 0.5 mg Documented by: Clonazepam (Klonopin) 0.5 mg PO QAM [facility] Last Admin: 01/11/19 09:32 Dose: 0.5 mg Documented by: Digoxin (Lanoxin) 125 mcg IVP ONCE PRN PRN Reason: Heart rate >165 Digoxin (Lanoxin) 125 mcg PO DAILY [facility] Last Admin: 01/11/19 09:30 Dose: 125 mcg Documented by: Diltiazem HCl (Cardizem Cd) 360 mg PO DAILY [facility] Last Admin: 01/11/19 09:31 Dose: 360 mg Documented by: Diphenhydramine HCl (Benadryl) 25 mg PO BID PRN PRN Reason: Allergic Reaction Doxycycline Monohydrate (Vibramycin) 100 mg PO BID [facility] Last Admin: 01/11/19 09:30 Dose: 100 mg Documented by: Duloxetine HCl (Cymbalta) 60 mg PO DAILY [facility] Last Admin: 01/11/19 09:32 Dose: 60 mg Documented by: Fluconazole (Diflucan) 100 mg PO DAILY [facility] Last Admin: 01/11/19 09:32 Dose: 100 mg Documented by: Formoterol Fumarate (Perforomist) 20 mcg INHALATION RT-BID [facility] Last Admin: 01/11/19 07:46 Dose: 20 mcg Documented by: Furosemide (Lasix) 40 mg PO DAILY [facility] Last Admin: 01/11/19 09:30 Dose: 40 mg Documented by: Insulin Human Regular 100 unit (/ Sodium Chloride) 101 mls @ 0 mls/hr IV .Q0M [facility]; Protocol Last Titration: 01/11/19 19:30 Dose: 2.5 ml/hr, 2.5 mls/hr Documented by: Insulin Aspart (Novolog) 10 unit 0.13 unit/kg (10 unit) SQ AC-TID [facility] Last Admin: 01/11/19 17:28 Dose: 10 unit Documented by: Levothyroxine Sodium (Synthroid) 50 mcg PO DAILY@0630 [facility] Last Admin: 01/11/19 06:41 Dose: 50 mcg Documented by: Lisinopril (Zestril) 10 mg PO DAILY [facility] Last Admin: 01/11/19 09:32 Dose: 10 mg Documented by: Lorazepam (Ativan) 0.5 mg IV Q6HR PRN PRN Reason: Anxiety Last Admin: 01/10/19 04:07 Dose: 0.5 mg Documented by: Methylprednisolone Sodium Succinate (Solu-Medrol) 40 mg IV Q8HR [facility] Last Admin: 01/11/19 15:47 Dose: 40 mg Documented by: Miscellaneous Information (Potassium Per Protocol) 1 each MISCELLANE DAILY PRN; Protocol PRN Reason: Per Protocol Montelukast Sodium (Singulair) 10 mg PO DAILY [facility] Last Admin: 01/11/19 09:37 Dose: 10 mg Documented by: Morphine Sulfate (Ms Contin) 60 mg PO Q8H PRN PRN Reason: SEVERE Pain Last Admin: 01/11/19 08:08 Dose: 60 mg Documented by: Nicotine (Habitrol 14mg/24hr Patch) 1 patch TRANSDERM DAILY [facility] Last Admin: 01/11/19 09:33 Dose: Not Given Documented by: Nitroglycerin (Nitrostat) 0.4 mg SUBLINGUAL Q5M PRN PRN Reason: Chest Pain Nystatin (Mycostatin Cream) 1 applic TOPICAL BID [facility] Last Admin: 01/11/19 09:33 Dose: Not Given Documented by: Oxycodone/Acetaminophen (Percocet 10-325) 1 each PO BID PRN PRN Reason: Breakthrough Pain Last Admin: 01/03/19 19:41 Dose: 1 each Documented by: Polyethylene Glycol (Miralax) 17 gm PO DAILY [facility] Last Admin: 01/11/19 09:33 Dose: Not Given Documented by: Pregabalin (Lyrica) 150 mg PO BID [facility] Last Admin: 01/11/19 09:29 Dose: 150 mg Documented by: Rivaroxaban (Xarelto) 20 mg PO DAILY [facility] Last Admin: 01/11/19 09:30 Dose: 20 mg Documented by: Spironolactone (Aldactone) 25 mg PO DAILY [facility] Last Admin: 01/11/19 09:32 Dose: 25 mg Documented by: Tamsulosin HCl (Flomax) 0.4 mg PO DAILY [facility] Last Admin: 01/11/19 09:30 Dose: 0.4 mg Documented by: Physical examination: VITAL SIGNS: 97.9, 103, 20, 137/68, 91% on 2 L GENERAL:. Sitting upon a chair, tired, sleepy EYES: Pupils equal. Conjunctiva normal. HEENT: External appearance of nose and ears normal, oral cavity normal. NECK: JVD unable to assess; masses not palpable. HEART: Heart sounds irregular, no edema]. LUNGS: Respiratory rate increased, diminished breath sounds ABDOMEN: Soft, nontender, liver spleen not palpable, no masses palpable. PSYCH: Sleepy but wakes up also questions INVESTIGATIONS, reviewed in the clinical context: White count 19.5 hemoglobin 10.6 bun 23 creatinine 0.39 [id number] Previous testing: White count 11.1 hemoglobin 11.9 platelets 181 potassium 3.8 creatinine 0.54 Troponin I 3 negative EKG tracing personally reviewed by me shows atrial fibrillation with a rapid ventricular rate Chest x-ray film personally reviewed by me-hyperinflation no obvious infiltrate Assessment: -Paroxysmal atrial fibrillation with rapid ventricular rate, chronically on xarelto, in and out of sinus rhythm -Acute hypoxic and hypercapnic respiratory failure requiring BiPAP, now on nasal cannula -Acute COPD exacerbation in a current smoker, some improvement -Acute tracheal bronchitis -Acute oropharyngeal candidiasis from use of steroids and antibiotics, improved -Severe hyperglycemia secondary steroids on insulin drip -Hyperlipidemia -Essential hypertension -Mild cognitive impairment -Hypothyroid -Chronic anxiety depression otherwise specified -Chronic gait dysfunction uses a cane and a walker -Chronic nicotine dependence patient cigarette smoker -CODE STATUS DO NOT RESUSCITATE. Discussed by Dr. Valdez with the patient today Plan: Patient remains on insulin drip from severely uncontrolled hyperglycemia from steroids. We'll cut back on Solu-Medrol to 40 mg every 8. Other medications to continue. Patient is feeling very tired. Advanced care planning: satat the bedside has a very lengthy talk with the patient. Does explain to her patient about her poor lung function. Patient is a very poor exercise tolerance. Patient given very tired lethargic at baseline. Oral intake is good. Patient in the hospital for a few days. Did bring up the topic of hospice to the patient given her overall condition. At this point will continue with the current treatment. But any time soon or down the road if patient continues to deteriorate she was strongly advised to consider hospice. Patient does understand the same and acknowledges the same. We'll talk on this again tomorrow. Total time spent was about 20 minutes
[2019-01-11 21:18] LABS: Glucose,Whole Blood 178 mg/dL (75-99)
[2019-01-11 23:19] LABS: Glucose,Whole Blood 160 mg/dL (75-99)
[2019-01-12 01:10] LABS: Glucose,Whole Blood 120 mg/dL (75-99)
[2019-01-12 02:04] LABS: Glucose,Whole Blood 155 mg/dL (75-99)
[2019-01-12 04:14] LABS: Glucose,Whole Blood 223 mg/dL (75-99)
[2019-01-12 06:12] LABS: Glucose,Whole Blood 201 mg/dL (75-99)
[2019-01-12] MEDS: LEVOTHYROXINE 50 MCG TAB PO SCH (06:28)
[2019-01-12] MEDS: FUROSEMIDE 20 MG TAB PO SCH (06:28)
[2019-01-12] MEDS: INSULIN REGULAR 100 UNIT in SODIUM CHLORIDE 0.9% 100 ML IV SCH (06:31)
[2019-01-12] MEDS: IPRATROPIUM-ALBUTEROL 3 ML NEB INHALATION SCH ×4 (07:06→20:34)
[2019-01-12] MEDS: FORMOTEROL FUMARATE 20 MCG/2 ML NEBU INHALATION SCH ×2 (07:06→20:34)
[2019-01-12] MEDS: BUDESONIDE 1 MG/2 ML NEBU INHALATION SCH ×2 (07:06→20:34)
[2019-01-12] MEDS: INSULIN ASPART (NovoLOG) 100 UNIT/ML VIAL SQ SCH ×4 (08:23→21:33)
[2019-01-12] MEDS: RIVAROXABAN 20 MG TAB PO SCH (08:49)
[2019-01-12] MEDS: ATORVASTATIN 20 MG TAB PO SCH (08:49)
[2019-01-12] MEDS: FLUCONAZOLE 100 MG TAB PO SCH (08:49)
[2019-01-12] MEDS: SPIRONOLACTONE 25 MG TAB PO SCH (08:49)
[2019-01-12] MEDS: DILTIAZEM CD 180 MG CAP.ER.24H PO SCH (08:49)
[2019-01-12] MEDS: clonazePAM 0.5 MG TAB PO SCH ×2 (08:49→21:33)
[2019-01-12] MEDS: PREGABALIN 50 MG CAP PO SCH ×2 (08:49→19:54)
[2019-01-12] MEDS: DULoxetine HCL 60 MG CAPSULE.DR PO SCH (08:49)
[2019-01-12] MEDS: LISINOPRIL 10 MG TAB PO SCH (08:49)
[2019-01-12] MEDS: DIGOXIN 125 MCG TAB PO SCH (08:49)
[2019-01-12] MEDS: DOXYCYCLINE 100 MG CAP PO SCH ×2 (08:50→19:53)
[2019-01-12] MEDS: ASPIRIN 81 MG PO SCH (08:50)
[2019-01-12] MEDS: TAMSULOSIN 0.4 MG CAP.ER.24H PO SCH (08:50)
[2019-01-12] MEDS: methylPREDNISolone SOD SUCCI 40 MG/ML 1 ML VIAL IV SCH ×2 (08:50→16:59)
[2019-01-12 08:51] LABS: Glucose,Whole Blood 187 mg/dL (75-99)
[2019-01-12] MEDS: MONTELUKAST 10 MG TAB PO SCH (08:56)
[2019-01-12] MEDS: NICOTINE 14MG/24HR PATCH TRANSDERM SCH (09:08)
[2019-01-12] MEDS: POLYETHYLENE GLYCOL 3350 17 GM POWD.PACK PO SCH (09:08)
[2019-01-12] MEDS: NYSTATIN 100,000UNIT/GM CREAM 30 GM TUBE TOPICAL SCH ×2 (09:08→19:54)
--- NOTE | 2019-01-12 10:04 | P.PN ---
Subjective Progress Note Date: 01/12/19 Patient is a 63-year-old female with a past medical history of COPD on home home oxygen, hypertension, dyslipidemia, valvular heart disease, CVA , PE anticoagulated with Xarelto, and current smoker who presented with complaints of shortness of breath. He follows with Dr. Silva in the office. She was r ecently discharged a few days ago after COPD exacerbation. States she continues to have a productive cough with green sputum, low-grade fevers, and shortness of breath. Denies any palpitations or chest pain. Remaining in normal sinus rhythm this morning. 01/10/2019 Patient seen and examined this morning, sitting up in the chair at bedside. Blood pressure 142/70 with a heart rate of 110-120 this morning, 90% on 2 L of oxygen. Potassium 3.2 today, magnesium 2.2. Still short of breath, continues to have congestive cough. 01/11/2019 Patient seen and examined this morning, sitting up in the chair at bedside. Quite short of breath, moving from bedside to chair, otherwise the patient seems to be improving overall. In normal sinus rhythm this morning, heart rate 90. Blood pressure 120/60. Plasma lactic acid level 3.6. 01/12/2019 Patient seen and examined this morning, blood pressure 136/90 with a heart rate in the 90s, 91% on 3 L of oxygen. No lab data today. She did have some episodes of atrial fibrillation, this morning she is in a normal sinus rhythm with PACs. Objective - Vital Signs Vital signs: Vital Signs Temp 97.3 F L 01/12/19 08:00 Pulse 84 01/12/19 08:00 Resp 20 01/12/19 08:00 BP 136/94 01/12/19 08:00 Pulse Ox 91 L 01/12/19 08:00 Intake & Output 01/11/19 01/12/19 01/12/19 18:59 06:59 18:59 Intake Total 1096.266 22.049 127.15 Output Total 1600 920 Balance -503.734 -817.951 127.15 Weight 76 kg 71.2 kg Intake: Intake, IV Titration 36.266 22.049 7.15 Amount Insulin Regular 100 unit 36.266 22.049 7.15 In Sodium Chloride 0.9% 100 ml @ Titrate IV .Q0M [facility] Rx#:[id number] Oral 1060 120 Output: Urine 1600 920 Other: Voiding Method Indwelling Catheter Indwelling Catheter Indwelling Catheter # Voids 1 - Exam PHYSICAL EXAMINATION: GENERAL: 63-year-old gentleman in no acute distress at the time of my examination HEENT: Head is atraumatic, normocephalic. Pupils equal, round. Sclera anicteric. Conjunctiva are clear. Mucous membranes of the mouth are moist. Neck is supple. There is no elevated jugular venous pressure. No carotid bruit is heard. HEART EXAMINATION: Heart S1, S2 normal. No murmur or gallop heard. CHEST EXAMINATION: Lungs reveal improvement in air entry, fine wheezes throughout, rhonchi is also improving, seems to clear more with cough. ABDOMEN: Soft, nontender. Bowel sounds are heard. No organomegaly noted. EXTREMITIES: 2+ peripheral pulses with no evidence of peripheral edema and no calf tenderness noted. NEUROLOGIC patient is awake, alert and oriented 3 . . - Labs CBC & Chem 7: 01/11/19 05:38 01/11/19 05:38 Labs: Abnormal Lab Results - Last 24 Hours (Table) 01/11/19 01/11/19 01/11/19 Range/Units 09:21 11:44 13:36 POC Glucose (mg/dL) 152 H 185 H (75-99) mg/dL Plasma Lactic Acid Shailesh 3.6 H* (0.7-2.0) mmol/L 01/11/19 01/11/19 01/11/19 Range/Units 15:46 17:06 19:09 POC Glucose (mg/dL) 165 H 129 H 197 H (75-99) mg/dL Plasma Lactic Acid Shailesh (0.7-2.0) mmol/L 01/11/19 01/11/19 01/12/19 Range/Units 21:17 23:10 01:06 POC Glucose (mg/dL) 178 H 160 H 120 H (75-99) mg/dL Plasma Lactic Acid Shailesh (0.7-2.0) mmol/L 01/12/19 01/12/19 01/12/19 Range/Units 02:03 04:12 06:11 POC Glucose (mg/dL) 155 H 223 H 201 H (75-99) mg/dL Plasma Lactic Acid Shailesh (0.7-2.0) mmol/L 01/12/19 Range/Units 08:49 POC Glucose (mg/dL) 187 H (75-99) mg/dL Plasma Lactic Acid Shailesh (0.7-2.0) mmol/L Microbiology - Last 24 Hours (Table) 01/11/19 16:00 Gram Stain - Preliminary Sputum Sputum Culture - Preliminary 01/06/19 16:58 Blood Culture - Preliminary Blood No Growth after 120 hours Assessment and Plan Plan: Assessment: #1. Acute on chronic hypoxemic respiratory failure secondary to acute exacerbation of chronic obstructive pulmonary disease complicated by tracheobronchitis #2. New-onset A. fib RVR, patient has since converted to sinus rhythm, paroxysmal #3. History of pulmonary embolism on Xarelto #4. Recent hospitalization at [facility] for COPD exacerbation, patient was discharged home on accommodation of prednisone and doxycycline #5. Advanced COPD on home oxygen at 3 L, and maintenance dose prednisone #6. Former smoker #7. Hypothyroidism #8. Previous history of CVA #9. Hypertension #10. Hyperlipidemia #11. Anxiety #12. Chronic left leg swelling, and there is bruising involving the left foot, denies any recent trauma #13. Degenerative disc disease #14. Valvular heart disease, severe mitral regurgitation, and moderate pulmonary hypertension with PA systolic of 57 mmHg is seen on the echocardiogram from May 2018 Plan From cardiology's perspective, we'll recommend to continue this patient on her current medications. Arrangements are being made for possible transfer to rehab. DNP note has been reviewed, I agree with a documented findings and plan of care. Patient was seen and examined.
[2019-01-12 12:05] LABS: Glucose,Whole Blood 99 mg/dL (75-99)
[2019-01-12] MEDS: MORPHINE SULFATE ER 30 MG TABLET PO PRN (13:19)
--- NOTE | 2019-01-12 13:33 | P.PN ---
Subjective Progress Note Date: 01/12/19 Principal diagnosis: This is a 63-year-old white female patient with past medical history of COPD, and patient is on home oxygen at 2 L, and maintenance dose prednisone, previous history of CVA/TIA, hypertension, hyperlipidemia, previous history of pulmonary embolism on Xarelto, hypothyroidism, anxiety, and former smoker, who was recently hospitalized at the [facility] and discharged home a week ago for acute exacerbation of COPD. Patient states she was treated with the IV steroids, nebulized treatments and doxycycline, she was discharged home a week ago, however she felt that she did not significantly improve, she was seen in the emergency room at [facility] on 12/30/2018 with complaints of productive cough, difficulty breathing, chills and shakes, patient at that time left AGAINST MEDICAL ADVICE. On 01/01/2019 18 came back for reevaluation with worsening dyspnea, cough, congestion, she states she just couldn't breathe, she is experiencing some chest tightness, she states she is bringing up some foul smelling and foul tasting green colored phlegm. Denied any chest pain, reports some subjective chills, she reports some swelling in her lower extremities, there is significant bruising to her left foot, and patient denies any recent trauma to it. He was found to be in A. fib RVR, she was placed on Cardizem drip, and she has currently converted to sinus rhythm, he was started on IV steroids, empiric antibiotics in the form of Levaquin, breathing treatments, she is on 5 L of O2, she states she at times feel like she is going to , and not leave the hospital. No fever, hemodynamically stable, lung sounds reveal diminished breath sounds with diffuse wheezes, patient does not appear to be in any acute distress. Chest x-ray was reviewed showing a mild persistent plate atelectasis at the left lung base. The patient is seen again today 01/12/2019 in follow-up on the selective care unit. She is currently sitting up in a chair at the bedside. Awake and alert in no acute distress. She is currently maintaining O2 saturations in the low 90s on 3 L/m per nasal cannula. She's been afebrile. Slightly tachycardic. Still dyspneic with minimal exertion conversation. Blood and sputum culture reveals no growth. She is continued on DuoNeb inhalations, Pulmicort and Perforomist inhalations, IV Solu-Medrol. She is on oral diuretics. Anticoagulated with Xarelto. Objective - Vital Signs Vital signs: Vital Signs Temp 97.3 F L 01/12/19 11:55 Pulse 107 H 01/12/19 12:00 Resp 17 01/12/19 12:00 BP 127/65 01/12/19 11:55 Pulse Ox 94 L 01/12/19 11:55 Intake & Output 01/11/19 01/12/19 01/12/19 18:59 06:59 18:59 Intake Total 1096.266 22.049 134.65 Output Total 2654 758 9657 Balance -503.734 -897.951 -5865.35 Weight 76 kg 71.2 kg Intake: Intake, IV Titration 36.266 22.049 14.65 Amount Insulin Regular 100 unit 36.266 22.049 14.65 In Sodium Chloride 0.9% 100 ml @ Titrate IV .Q0M [facility] Rx#:[id number] Oral 1060 120 Output: Urine 4360 995 2405 Other 3000 Other: Voiding Method Indwelling Catheter Indwelling Catheter Indwelling Catheter # Voids 1 - Exam GENERAL EXAM: Alert, 63-year-old female patient, on 3 L nasal cannula, in mild respiratory distress. HEAD: Normocephalic/atraumatic. EYES: Normal reaction of pupils, equal size. Conjunctiva pink, sclera white. NOSE: Clear with pink turbinates. THROAT: No erythema or exudates. NECK: No masses, no JVD, no thyroid enlargement, no adenopathy. CHEST: No chest wall deformity. Symmetrical expansion. LUNGS: Equal air entry with diffuse expiratory wheezing CVS: Regular rate and rhythm, normal S1 and S2, no gallops, no murmurs, no rubs ABDOMEN: Soft, nontender. No hepatosplenomegaly, normal bowel sounds, no guarding or rigidity. EXTREMITIES: No clubbing, trace lower extremity edema left greater than the right, no cyanosis, 2+ pulses and upper and lower extremities. There are extensive bruises involving the left foot, left lower leg, and to a lesser degree right lower leg, toes on the left foot, and patient denies any recent trauma, he is on chronic anticoagulation MUSCULOSKELETAL: Muscle strength and tone normal. SPINE: No scoliosis or deformity SKIN: No rashes CENTRAL NERVOUS SYSTEM: No focal deficits, tone is normal in all 4 extremities. PSYCHIATRIC: Alert and oriented -3. Appropriate affect. Intact judgment and insight. - Labs CBC & Chem 7: 01/11/19 05:38 01/11/19 05:38 Labs: Abnormal Lab Results - Last 24 Hours (Table) 01/11/19 01/11/19 01/11/19 Range/Units 13:36 15:46 17:06 POC Glucose (mg/dL) 185 H 165 H 129 H (75-99) mg/dL 01/11/19 01/11/19 01/11/19 Range/Units 19:09 21:17 23:10 POC Glucose (mg/dL) 197 H 178 H 160 H (75-99) mg/dL 01/12/19 01/12/19 01/12/19 Range/Units 01:06 02:03 04:12 POC Glucose (mg/dL) 120 H 155 H 223 H (75-99) mg/dL 01/12/19 01/12/19 Range/Units 06:11 08:49 POC Glucose (mg/dL) 201 H 187 H (75-99) mg/dL Microbiology - Last 24 Hours (Table) 01/11/19 16:00 Gram Stain - Preliminary Sputum Sputum Culture - Preliminary 01/06/19 16:58 Blood Culture - Preliminary Blood No Growth after 120 hours Assessment and Plan Assessment: Assessment: #1. Acute on chronic hypoxemic respiratory failure secondary to acute exacerbation of chronic obstructive pulmonary disease complicated by tracheobronchitis #2. Chronic hypercapnic respiratory failure related to advanced COPD #3. New-onset A. fib RVR, remains tachycardic. #4. History of pulmonary embolism on Xarelto #5. Recent hospitalization at [facility] for COPD exacerbation, patient was discharged home on accommodation of prednisone and doxycycline #6. Advanced COPD on home oxygen at 3 L, and maintenance dose prednisone #7. Former smoker #8. Hypothyroidism #9. Previous history of CVA #10. Hypertension #11. Hyperlipidemia #12. Anxiety #13. Chronic left leg swelling, and there is bruising involving the left foot, denies any recent trauma #14. Degenerative disc disease #15. Valvular heart disease, severe mitral regurgitation, and moderate pulmonary hypertension with PA systolic of 57 mmHg is seen on the echocardiogram from May 2018 Plan: The patient was seen and evaluated by Dr. Maloney. Continue her current medications. Her over all prognosis remains quite guarded and poor. She is a DO NOT RESUSCITATE/DO NOT INTUBATE CODE STATUS. We'll continue to follow and make further recommendations based on her clinical status. I, the cosigning physician, performed a history & physical examination of the patient. Lungs sounds with bilateral end expiratory wheeze, diminished Maintaining good O2 saturations in the 90s on 3 L/m per nasal cannula alternating with BiPAP at 35% FiO2. I discussed the assessment and plan of care with my nurse practitioner, Cynthia Ken. I attest to the above note as dictated by her.
[2019-01-12 16:48] LABS: Glucose,Whole Blood 250 mg/dL (75-99)
--- NOTE | 2019-01-12 18:42 | P.PN ---
Progress Note - Text Progress Note Date: 01/12/19 Chief Complaint: Short of breath Interval history: This is a pleasant 63-year-old patient of Dr. Trevor Hamilton. 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 Chronic stable medical conditions include hypertension, hyperlipidemia, mild cognitive impairment, hypothyroid, spinal stenosis, osteoarthritis, severe mitral and moderate tricuspid valve regurgitation. Patient about 2 weeks ago was admitted to [facility]. She is not sure of the diagnosis but it was a long issue. When she was discharged she says she really didn't feel much better. She continues to get progressively short of breath and wheezing. Was bringing up some phlegm green in color. Denies any fever and chills. She also been noticing increasing palpitation and heart skipping and flipping beats. Appetite is gone down. Weak and tired. Does use a cane or a walker. Patient was found to be in atrial fibrillation with rapid ventricular rate. This was initially started on IV antibiotics, IV steroids, IV Cardizem drip and admitted for the same. On January 03 patient reverted to sinus rhythm. Today-sitting up in a chair. Bit more awake today., Cough. Tired. Some shortness of breath at rest. Has been in A. fib. Rate controlled. Review of systems: Was done for constitutional, cardiovascular, GI, pulmonary. relevant finding as above Active Medications Albuterol/Ipratropium (Duoneb 0.5 Mg-3 Mg/3 Ml Soln) 3 ml INHALATION RT-QID [facility] Last Admin: 01/12/19 16:08 Dose: 3 ml Documented by: Albuterol/Ipratropium (Duoneb 0.5 Mg-3 Mg/3 Ml Soln) 3 ml INHALATION RT-Q2H PRN PRN Reason: Shortness Of Breath Or Wheezing Last Admin: 01/09/19 03:05 Dose: 3 ml Documented by: Aspirin (Aspirin) 81 mg PO DAILY [facility] Last Admin: 01/12/19 08:50 Dose: 81 mg Documented by: Atorvastatin Calcium (Lipitor) 20 mg PO DAILY [facility] Last Admin: 01/12/19 08:49 Dose: 20 mg Documented by: Budesonide (Pulmicort) 1 mg INHALATION RT-BID [facility] Last Admin: 01/12/19 07:06 Dose: 1 mg Documented by: Clonazepam (Klonopin) 0.5 mg PO HS [facility] Last Admin: 01/11/19 20:36 Dose: 0.5 mg Documented by: Clonazepam (Klonopin) 0.5 mg PO QAM [facility] Last Admin: 01/12/19 08:49 Dose: 0.5 mg Documented by: Digoxin (Lanoxin) 125 mcg IVP ONCE PRN PRN Reason: Heart rate >165 Digoxin (Lanoxin) 125 mcg PO DAILY [facility] Last Admin: 01/12/19 08:49 Dose: 125 mcg Documented by: Diltiazem HCl (Cardizem Cd) 360 mg PO DAILY [facility] Last Admin: 01/12/19 08:49 Dose: 360 mg Documented by: Diphenhydramine HCl (Benadryl) 25 mg PO BID PRN PRN Reason: Allergic Reaction Doxycycline Monohydrate (Vibramycin) 100 mg PO BID [facility] Last Admin: 01/12/19 08:50 Dose: 100 mg Documented by: Duloxetine HCl (Cymbalta) 60 mg PO DAILY [facility] Last Admin: 01/12/19 08:49 Dose: 60 mg Documented by: Fluconazole (Diflucan) 100 mg PO DAILY [facility] Last Admin: 01/12/19 08:49 Dose: 100 mg Documented by: Formoterol Fumarate (Perforomist) 20 mcg INHALATION RT-BID [facility] Last Admin: 01/12/19 07:06 Dose: 20 mcg Documented by: Furosemide (Lasix) 40 mg PO DAILY [facility] Last Admin: 01/12/19 06:28 Dose: 40 mg Documented by: Insulin Aspart (Novolog) 0 unit SQ [facility]; Protocol Last Admin: 01/12/19 17:00 Dose: 8 unit Documented by: Levothyroxine Sodium (Synthroid) 50 mcg PO DAILY@0630 [facility] Last Admin: 01/12/19 06:28 Dose: 50 mcg Documented by: Lisinopril (Zestril) 10 mg PO DAILY [facility] Last Admin: 01/12/19 08:49 Dose: 10 mg Documented by: Lorazepam (Ativan) 0.5 mg IV Q6HR PRN PRN Reason: Anxiety Last Admin: 01/10/19 04:07 Dose: 0.5 mg Documented by: Methylprednisolone Sodium Succinate (Solu-Medrol) 40 mg IV Q8HR [facility] Stop: 01/12/19 23:59 Last Admin: 01/12/19 16:59 Dose: 40 mg Documented by: Miscellaneous Information (Potassium Per Protocol) 1 each MISCELLANE DAILY PRN; Protocol PRN Reason: Per Protocol Montelukast Sodium (Singulair) 10 mg PO DAILY [facility] Last Admin: 01/12/19 08:56 Dose: 10 mg Documented by: Morphine Sulfate (Ms Contin) 60 mg PO Q8H PRN PRN Reason: SEVERE Pain Last Admin: 01/12/19 13:19 Dose: 60 mg Documented by: Nicotine (Habitrol 14mg/24hr Patch) 1 patch TRANSDERM DAILY [facility] Last Admin: 01/12/19 09:08 Dose: Not Given Documented by: Nitroglycerin (Nitrostat) 0.4 mg SUBLINGUAL Q5M PRN PRN Reason: Chest Pain Nystatin (Mycostatin Cream) 1 applic TOPICAL BID [facility] Last Admin: 01/12/19 09:08 Dose: Not Given Documented by: Oxycodone/Acetaminophen (Percocet 10-325) 1 each PO BID PRN PRN Reason: Breakthrough Pain Last Admin: 01/03/19 19:41 Dose: 1 each Documented by: Polyethylene Glycol (Miralax) 17 gm PO DAILY [facility] Last Admin: 01/12/19 09:08 Dose: Not Given Documented by: Prednisone () 60 mg PO DAILY [facility] Pregabalin (Lyrica) 150 mg PO BID [facility] Last Admin: 01/12/19 08:49 Dose: 150 mg Documented by: Rivaroxaban (Xarelto) 20 mg PO DAILY [facility] Last Admin: 01/12/19 08:49 Dose: 20 mg Documented by: Spironolactone (Aldactone) 25 mg PO DAILY [facility] Last Admin: 01/12/19 08:49 Dose: 25 mg Documented by: Tamsulosin HCl (Flomax) 0.4 mg PO DAILY [facility] Last Admin: 01/12/19 08:50 Dose: 0.4 mg Documented by: Physical examination: VITAL SIGNS: 97.3, 107, 17, 127/65, 94% on 3 L GENERAL:. Sitting upon a chair, but more awake today EYES: Pupils equal. Conjunctiva normal. HEENT: External appearance of nose and ears normal, oral cavity normal. NECK: JVD unable to assess; masses not palpable. HEART: Heart sounds irregular, no edema]. LUNGS: Respiratory rate increased, diminished breath sounds ABDOMEN: Soft, nontender, liver spleen not palpable, no masses palpable. PSYCH: AAO 3, tired INVESTIGATIONS, reviewed in the clinical context: Accu-Cheks noted Previous testing: White count 11.1 hemoglobin 11.9 platelets 181 potassium 3.8 creatinine 0.54 Troponin I 3 negative EKG tracing personally reviewed by me shows atrial fibrillation with a rapid ventricular rate Chest x-ray film personally reviewed by me-hyperinflation no obvious infiltrate Assessment: -Paroxysmal atrial fibrillation with rapid ventricular rate, chronically on xarelto, in and out of sinus rhythm -Acute hypoxic and hypercapnic respiratory failure requiring BiPAP, now on nasal cannula -Acute COPD exacerbation in a current smoker, some improvement -Acute tracheal bronchitis -Acute oropharyngeal candidiasis from use of steroids and antibiotics, improved -Severe hyperglycemia secondary steroids on insulin drip -Hyperlipidemia -Essential hypertension -Mild cognitive impairment -Hypothyroid -Chronic anxiety depression otherwise specified -Chronic gait dysfunction uses a cane and a walker -Chronic nicotine dependence patient cigarette smoker -CODE STATUS DO NOT RESUSCITATE. Discussed by Dr. Valdez with the patient today Plan: Insulin drip had been discontinued. Follow Accu-Cheks. Care was discussed with the patient. Dose Solu-Medrol is being cut back. We'll DC the Solu-Medrol tonight. Start 60 mg of prednisone tomorrow morning. Hoping to send the patient to [facility]CF tomorrow. Prognosis guarded. Discussed with the patient and at the bedside.
[2019-01-12] MEDS: oxyCODONE-APAP 10-325MG 1 EACH TAB PO PRN (19:54)
[2019-01-12 20:32] LABS: Glucose,Whole Blood 333 mg/dL (75-99)
[2019-01-13 06:17] LABS: Glucose,Whole Blood 234 mg/dL (75-99)
[2019-01-13] MEDS: LEVOTHYROXINE 50 MCG TAB PO SCH (06:23)
[2019-01-13] MEDS: INSULIN ASPART (NovoLOG) 100 UNIT/ML VIAL SQ SCH ×4 (06:26→21:12)
[2019-01-13] MEDS: ASPIRIN 81 MG PO SCH (08:07)
[2019-01-13] MEDS: PREGABALIN 50 MG CAP PO SCH ×2 (08:07→20:07)
[2019-01-13] MEDS: NICOTINE 14MG/24HR PATCH TRANSDERM SCH (08:07)
[2019-01-13] MEDS: DOXYCYCLINE 100 MG CAP PO SCH ×2 (08:07→20:07)
[2019-01-13] MEDS: POLYETHYLENE GLYCOL 3350 17 GM POWD.PACK PO SCH ×2 (08:07→08:11)
[2019-01-13] MEDS: DULoxetine HCL 60 MG CAPSULE.DR PO SCH (08:07)
[2019-01-13] MEDS: FUROSEMIDE 20 MG TAB PO SCH (08:08)
[2019-01-13] MEDS: SPIRONOLACTONE 25 MG TAB PO SCH (08:08)
[2019-01-13] MEDS: ATORVASTATIN 20 MG TAB PO SCH (08:08)
[2019-01-13] MEDS: RIVAROXABAN 20 MG TAB PO SCH (08:08)
[2019-01-13] MEDS: predniSONE 20 MG TAB PO SCH (08:08)
[2019-01-13] MEDS: LISINOPRIL 10 MG TAB PO SCH (08:08)
[2019-01-13] MEDS: DIGOXIN 125 MCG TAB PO SCH (08:08)
[2019-01-13] MEDS: MONTELUKAST 10 MG TAB PO SCH (08:08)
[2019-01-13] MEDS: clonazePAM 0.5 MG TAB PO SCH ×2 (08:08→20:07)
[2019-01-13] MEDS: TAMSULOSIN 0.4 MG CAP.ER.24H PO SCH (08:08)
[2019-01-13] MEDS: FLUCONAZOLE 100 MG TAB PO SCH (08:09)
[2019-01-13] MEDS: DILTIAZEM CD 180 MG CAP.ER.24H PO SCH (08:09)
[2019-01-13] MEDS: oxyCODONE-APAP 10-325MG 1 EACH TAB PO PRN (08:09)
[2019-01-13] MEDS: NYSTATIN 100,000UNIT/GM CREAM 30 GM TUBE TOPICAL SCH ×2 (08:17→20:08)
[2019-01-13] MEDS: BUDESONIDE 1 MG/2 ML NEBU INHALATION SCH ×2 (09:06→20:01)
[2019-01-13] MEDS: FORMOTEROL FUMARATE 20 MCG/2 ML NEBU INHALATION SCH ×2 (09:06→20:01)
[2019-01-13] MEDS: IPRATROPIUM-ALBUTEROL 3 ML NEB INHALATION SCH ×4 (09:07→20:01)
[2019-01-13 11:53] LABS: Glucose,Whole Blood 322 mg/dL (75-99)
--- NOTE | 2019-01-13 12:00 | P.PN ---
Subjective Progress Note Date: 01/13/19 Principal diagnosis: This is a 63-year-old white female patient with past medical history of COPD, and patient is on home oxygen at 2 L, and maintenance dose prednisone, previous history of CVA/TIA, hypertension, hyperlipidemia, previous history of pulmonary embolism on Xarelto, hypothyroidism, anxiety, and former smoker, who was recently hospitalized at the [facility] and discharged home a week ago for acute exacerbation of COPD. Patient states she was treated with the IV steroids, nebulized treatments and doxycycline, she was discharged home a week ago, however she felt that she did not significantly improve, she was seen in the emergency room at [facility] on 12/30/2018 with complaints of productive cough, difficulty breathing, chills and shakes, patient at that time left AGAINST MEDICAL ADVICE. On 01/01/2019 18 came back for reevaluation with worsening dyspnea, cough, congestion, she states she just couldn't breathe, she is experiencing some chest tightness, she states she is bringing up some foul smelling and foul tasting green colored phlegm. Denied any chest pain, reports some subjective chills, she reports some swelling in her lower extremities, there is significant bruising to her left foot, and patient denies any recent trauma to it. He was found to be in A. fib RVR, she was placed on Cardizem drip, and she has currently converted to sinus rhythm, he was started on IV steroids, empiric antibiotics in the form of Levaquin, breathing treatments, she is on 5 L of O2, she states she at times feel like she is going to , and not leave the hospital. No fever, hemodynamically stable, lung sounds reveal diminished breath sounds with diffuse wheezes, patient does not appear to be in any acute distress. Chest x-ray was reviewed showing a mild persistent plate atelectasis at the left lung base. The patient is seen again today 01/12/2019 in follow-up on the selective care unit. She is currently sitting up in a chair at the bedside. Awake and alert in no acute distress. She is currently maintaining O2 saturations in the low 90s on 3 L/m per nasal cannula. She's been afebrile. Slightly tachycardic. Still dyspneic with minimal exertion conversation. Blood and sputum culture reveals no growth. She is continued on DuoNeb inhalations, Pulmicort and Perforomist inhalations, IV Solu-Medrol. She is on oral diuretics. Anticoagulated with Xarelto. The patient is seen again today 01/13/2019 in follow-up on the selective care unit. She is currently sitting up in a chair at the bedside. Awake and alert in no acute distress. Maintaining good O2 saturations in the 90s on 3 L/m per nasal cannula. She feels a bit stronger today compared to yesterday. Just a bit less short of breath. Blood cultures reveal no growth. Sputum culture pending. Continued on DuoNeb inhalations, Pulmicort and Perforomist inhalations, prednisone. Antibiotics in the form of Vibramycin. She is on oral diuretics. NicoDerm patch in place. Anticoagulated with Xarelto. Objective - Vital Signs Vital signs: Vital Signs Temp 98.8 F 01/13/19 07:45 Pulse 108 H 01/13/19 09:31 Resp 18 01/13/19 07:45 BP 127/67 01/13/19 07:45 Pulse Ox 92 L 01/13/19 07:45 Intake & Output 01/12/19 01/13/19 01/13/19 18:59 06:59 18:59 Intake Total 134.65 120 600 Output Total 6500 200 Balance -6365.35 -80 600 Intake: IV 0 Sodium Chloride 0.9% 1, 0 000 ml @ 25 mls/hr IV . Q24H [facility] Rx#:[id number] Intake, IV Titration 14.65 Amount Insulin Regular 100 unit 14.65 In Sodium Chloride 0.9% 100 ml @ Titrate IV .Q0M [facility] Rx#:[id number] Oral 120 120 600 Output: Urine 3500 200 Other 3000 Other: Voiding Method Indwelling Catheter Indwelling Catheter Indwelling Catheter - Exam GENERAL EXAM: Alert, 63-year-old female patient, on 3 L nasal cannula, comfortable up in a chair. HEAD: Normocephalic/atraumatic. EYES: Normal reaction of pupils, equal size. Conjunctiva pink, sclera white. NOSE: Clear with pink turbinates. THROAT: No erythema or exudates. NECK: No masses, no JVD, no thyroid enlargement, no adenopathy. CHEST: No chest wall deformity. Symmetrical expansion. LUNGS: Equal air entry with end expiratory wheezing CVS: Regular rate and rhythm, normal S1 and S2, no gallops, no murmurs, no rubs ABDOMEN: Soft, nontender. No hepatosplenomegaly, normal bowel sounds, no guarding or rigidity. EXTREMITIES: No clubbing, trace lower extremity edema left greater than the right, no cyanosis, 2+ pulses and upper and lower extremities. There are extensive bruises involving the left foot, left lower leg, and to a lesser degree right lower leg, toes on the left foot, and patient denies any recent trauma, he is on chronic anticoagulation MUSCULOSKELETAL: Muscle strength and tone normal. SPINE: No scoliosis or deformity SKIN: No rashes CENTRAL NERVOUS SYSTEM: No focal deficits, tone is normal in all 4 extremities. PSYCHIATRIC: Alert and oriented -3. Appropriate affect. Intact judgment and insight. - Labs CBC & Chem 7: 01/11/19 05:38 01/11/19 05:38 Labs: Abnormal Lab Results - Last 24 Hours (Table) 01/12/19 01/12/19 01/13/19 Range/Units 16:46 20:30 06:16 POC Glucose (mg/dL) 250 H 333 H 234 H (75-99) mg/dL 01/13/19 Range/Units 11:49 POC Glucose (mg/dL) 322 H (75-99) mg/dL Microbiology - Last 24 Hours (Table) 01/06/19 16:58 Blood Culture - Final Blood No Growth after 144 hours Assessment and Plan Assessment: Assessment: #1. Acute on chronic hypoxemic respiratory failure secondary to acute exacerbation of chronic obstructive pulmonary disease complicated by tracheobronchitis #2. Chronic hypercapnic respiratory failure related to advanced COPD #3. New-onset A. fib RVR, remains tachycardic. #4. History of pulmonary embolism on Xarelto #5. Recent hospitalization at [facility] for COPD exacerbation, patient was discharged home on accommodation of prednisone and doxycycline #6. Advanced COPD on home oxygen at 3 L, and maintenance dose prednisone #7. Former smoker #8. Hypothyroidism #9. Previous history of CVA #10. Hypertension #11. Hyperlipidemia #12. Anxiety #13. Chronic left leg swelling, and there is bruising involving the left foot, denies any recent trauma #14. Degenerative disc disease #15. Valvular heart disease, severe mitral regurgitation, and moderate pulmonary hypertension with PA systolic of 57 mmHg is seen on the echocardiogram from May 2018 Plan: The patient was seen and evaluated by Dr. Maloney. Continue her current medications. We'll continue to follow and make further recommendations based on her clinical status. I, the cosigning physician, performed a history & physical examination of the patient. Lungs sounds with bilateral end expiratory wheeze, diminished. Maintaining good O2 saturations in the 90s on 3 L/m per nasal cannula alternating with BiPAP at 35% FiO2. I discussed the assessment and plan of care with my nurse practitioner, Cynthia Ken. I attest to the above note as dictated by her.
[2019-01-13] MEDS ORDERED: INSULIN ASPART (NovoLOG) 100 UNIT/ML VIAL SQ ONE ×2 (12:15→17:32)
--- NOTE | 2019-01-13 13:45 | P.PN ---
Progress Note - Text Progress Note Date: 01/13/19 Chief Complaint: Short of breath Interval history: This is a pleasant 63-year-old patient of Dr. Trevor Hamilton. 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 Chronic stable medical conditions include hypertension, hyperlipidemia, mild cognitive impairment, hypothyroid, spinal stenosis, osteoarthritis, severe mitral and moderate tricuspid valve regurgitation. Patient about 2 weeks ago was admitted to [facility]. She is not sure of the diagnosis but it was a long issue. When she was discharged she says she really didn't feel much better. She continues to get progressively short of breath and wheezing. Was bringing up some phlegm green in color. Denies any fever and chills. She also been noticing increasing palpitation and heart skipping and flipping beats. Appetite is gone down. Weak and tired. Does use a cane or a walker. Patient was found to be in atrial fibrillation with rapid ventricular rate. This was initially started on IV antibiotics, IV steroids, IV Cardizem drip and admitted for the same. On January 03 patient reverted to sinus rhythm. Today-awake, tired, tolerating some diet. Some shortness of breath. is present bedside. Review of systems: Was done for constitutional, cardiovascular, GI, pulmonary. relevant finding as above Active Medications Albuterol/Ipratropium (Duoneb 0.5 Mg-3 Mg/3 Ml Soln) 3 ml INHALATION RT-QID [facility] Last Admin: 01/13/19 13:13 Dose: 3 ml Documented by: Albuterol/Ipratropium (Duoneb 0.5 Mg-3 Mg/3 Ml Soln) 3 ml INHALATION RT-Q2H PRN PRN Reason: Shortness Of Breath Or Wheezing Last Admin: 01/09/19 03:05 Dose: 3 ml Documented by: Aspirin (Aspirin) 81 mg PO DAILY [facility] Last Admin: 01/13/19 08:07 Dose: 81 mg Documented by: Atorvastatin Calcium (Lipitor) 20 mg PO DAILY [facility] Last Admin: 01/13/19 08:08 Dose: 20 mg Documented by: Budesonide (Pulmicort) 1 mg INHALATION RT-BID [facility] Last Admin: 01/13/19 09:06 Dose: 1 mg Documented by: Clonazepam (Klonopin) 0.5 mg PO HS [facility] Last Admin: 01/12/19 21:33 Dose: 0.5 mg Documented by: Clonazepam (Klonopin) 0.5 mg PO QAM [facility] Last Admin: 01/13/19 08:08 Dose: 0.5 mg Documented by: Digoxin (Lanoxin) 125 mcg IVP ONCE PRN PRN Reason: Heart rate >165 Digoxin (Lanoxin) 125 mcg PO DAILY [facility] Last Admin: 01/13/19 08:08 Dose: 125 mcg Documented by: Diltiazem HCl (Cardizem Cd) 360 mg PO DAILY [facility] Last Admin: 01/13/19 08:09 Dose: 360 mg Documented by: Diphenhydramine HCl (Benadryl) 25 mg PO BID PRN PRN Reason: Allergic Reaction Doxycycline Monohydrate (Vibramycin) 100 mg PO BID [facility] Last Admin: 01/13/19 08:07 Dose: 100 mg Documented by: Duloxetine HCl (Cymbalta) 60 mg PO DAILY [facility] Last Admin: 01/13/19 08:07 Dose: 60 mg Documented by: Fluconazole (Diflucan) 100 mg PO DAILY [facility] Last Admin: 01/13/19 08:09 Dose: 100 mg Documented by: Formoterol Fumarate (Perforomist) 20 mcg INHALATION RT-BID [facility] Last Admin: 01/13/19 09:06 Dose: 20 mcg Documented by: Furosemide (Lasix) 40 mg PO DAILY [facility] Last Admin: 01/13/19 08:08 Dose: 40 mg Documented by: Insulin Aspart (Novolog) 0 unit SQ ACHS [facility]; Protocol Last Admin: 01/13/19 12:27 Dose: 8 unit Documented by: Levothyroxine Sodium (Synthroid) 50 mcg PO DAILY@0630 [facility] Last Admin: 01/13/19 06:23 Dose: 50 mcg Documented by: Lisinopril (Zestril) 10 mg PO DAILY [facility] Last Admin: 01/13/19 08:08 Dose: 10 mg Documented by: Lorazepam (Ativan) 0.5 mg IV Q6HR PRN PRN Reason: Anxiety Last Admin: 01/10/19 04:07 Dose: 0.5 mg Documented by: Miscellaneous Information (Potassium Per Protocol) 1 each MISCELLANE DAILY PRN; Protocol PRN Reason: Per Protocol Montelukast Sodium (Singulair) 10 mg PO DAILY [facility] Last Admin: 01/13/19 08:08 Dose: 10 mg Documented by: Morphine Sulfate (Ms Contin) 60 mg PO Q8H PRN PRN Reason: SEVERE Pain Last Admin: 01/12/19 13:19 Dose: 60 mg Documented by: Nicotine (Habitrol 14mg/24hr Patch) 1 patch TRANSDERM DAILY [facility] Last Admin: 01/13/19 08:07 Dose: 1 patch Documented by: Nitroglycerin (Nitrostat) 0.4 mg SUBLINGUAL Q5M PRN PRN Reason: Chest Pain Nystatin (Mycostatin Cream) 1 applic TOPICAL BID [facility] Last Admin: 01/13/19 08:17 Dose: Not Given Documented by: Oxycodone/Acetaminophen (Percocet 10-325) 1 each PO BID PRN PRN Reason: Breakthrough Pain Last Admin: 01/13/19 08:09 Dose: 1 each Documented by: Polyethylene Glycol (Miralax) 17 gm PO DAILY [facility] Last Admin: 01/13/19 08:11 Dose: Not Given Documented by: Prednisone () 60 mg PO DAILY [facility] Last Admin: 01/13/19 08:08 Dose: 60 mg Documented by: Pregabalin (Lyrica) 150 mg PO BID [facility] Last Admin: 01/13/19 08:07 Dose: 150 mg Documented by: Rivaroxaban (Xarelto) 20 mg PO DAILY [facility] Last Admin: 01/13/19 08:08 Dose: 20 mg Documented by: Spironolactone (Aldactone) 25 mg PO DAILY [facility] Last Admin: 01/13/19 08:08 Dose: 25 mg Documented by: Tamsulosin HCl (Flomax) 0.4 mg PO DAILY [facility] Last Admin: 01/13/19 08:08 Dose: 0.4 mg Documented by: Physical examination: VITAL SIGNS: 98.8, 103, 18, 127/67, 92% on 3 L GENERAL:. Sitting upon a chair, tired EYES: Pupils equal. Conjunctiva normal. HEENT: External appearance of nose and ears normal, oral cavity normal. NECK: JVD unable to assess; masses not palpable. HEART: Heart sounds irregular, no edema]. LUNGS: Respiratory rate increased, diminished breath sounds ABDOMEN: Soft, nontender, liver spleen not palpable, no masses palpable. PSYCH: AAO 3, tired INVESTIGATIONS, reviewed in the clinical context: Accu-Cheks noted Previous testing: White count 11.1 hemoglobin 11.9 platelets 181 potassium 3.8 creatinine 0.54 Troponin I 3 negative EKG tracing personally reviewed by me shows atrial fibrillation with a rapid ventricular rate Chest x-ray film personally reviewed by me-hyperinflation no obvious infiltrate Assessment: -Paroxysmal atrial fibrillation with rapid ventricular rate, chronically on xarelto, in and out of sinus rhythm -Acute hypoxic and hypercapnic respiratory failure requiring BiPAP, now on nasal cannula -Acute COPD exacerbation in a current smoker, some improvement -Acute tracheal bronchitis -Acute oropharyngeal candidiasis from use of steroids and antibiotics, improved -Severe hyperglycemia secondary steroids on insulin drip, now discontinued -Hyperlipidemia -Essential hypertension -Mild cognitive impairment -Hypothyroid -Chronic anxiety depression otherwise specified -Chronic gait dysfunction uses a cane and a walker -Chronic nicotine dependence patient cigarette smoker -CODE STATUS DO NOT RESUSCITATE. 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 Authorization has not come through for patient goes [facility]. Hence patient cannot be discharged. And every 2 patient on prednisone 60 mg daily currently. Other medications to continue.
--- NOTE | 2019-01-13 15:34 | P.PN ---
Subjective Progress Note Date: 01/13/19 Principal diagnosis: A. fib RVR The patient is a 63-year-old female with past medical history of current smoking, COPD with oxygen use at home, hypertension, hyperlipidemia, valvular heart disease, CVA, PE anticoagulated with Xarelto and atrial fibrillation. Patient is seen this a.m. sitting up in chair in no acute acute distress. Patient continue sinus rhythm on telemetry, current heart rate 101. Discharge planning continues and it is suggested patient go to rehab. Advise continued therapy inpatient as patient continues with course rhonchi, wheeze and bloody sputum production. Patient continues on 3 L NC O2. Henry catheter remains in place. Patient states she is unable to walk across the room without being short of breath. Advised to continue same medical/medication therapy. PHYSICAL EXAMINATION: VSS, Afebrile. SR on monitors, HR 112. HEENT: Head is atraumatic, normocephalic. Pupils are equal, round. Sclerae anicteric. Conjunctivae are clear. Mucous membranes of the mouth are dry. Neck is supple. There is no jugular venous distention. No carotid bruit is heard. No thyromegaly. LUNGS: Course rhonchi with wheeze bilaterally in upper and lower lunch russell. No chest wall tenderness is noted on palpation. HEART: Regular rate and rhythm without murmurs, rubs or gallops. S1 and S2 heard. ABDOMEN: Abdominal exam revealed normal bowel sounds. The abdomen was soft, non- tender, and without masses, organomegaly, or appreciable enlargement of the abdominal aorta. EXTREMITIES: Examination of the extremities revealed easily palpable radial, femoral and pedal pulses. 1+ Edema bilaterally on feet only. There was no cyanosis, clubbing or edema. No calf tenderness noted. VASCULAR: Radial and dorsalis pedis pulses palpated, no evidence of clubbing. NEUROLOGIC: Patient is awake, alert and oriented x3. There were no obvious focal neurologic abnormalities. FINAL IMPRESSION: 1. Acute on chronic respiratory failure secondary to COPD exacerbation. 2. New onset A. fib RVR, currently sinus rhythm/sinus tachycardia. 3. PE history currently on Xarelto. 4. Moderate pulmonary hypertension. 5. Current smoking. PLAN: Patient continues sinus rhythm. Continue same medical/medication regime. Education on smoking cessation. Advise continue treatment for COPD exacerbation before sending to rehab. Advise Henry catheter discontinuation. Objective - Vital Signs Vital signs: Vital Signs Temp 98.8 F 01/13/19 07:45 Pulse 112 H 01/13/19 13:24 Resp 18 01/13/19 07:45 BP 127/67 01/13/19 07:45 Pulse Ox 92 L 01/13/19 07:45 Intake & Output 01/12/19 01/13/19 01/13/19 18:59 06:59 18:59 Intake Total 134.65 120 600 Output Total 6500 200 Balance -6365.35 -80 600 Intake: IV 0 Sodium Chloride 0.9% 1, 0 000 ml @ 25 mls/hr IV . Q24H [facility] Rx#:[id number] Intake, IV Titration 14.65 Amount Insulin Regular 100 unit 14.65 In Sodium Chloride 0.9% 100 ml @ Titrate IV .Q0M [facility] Rx#:[id number] Oral 120 120 600 Output: Urine 3500 200 Other 3000 Other: Voiding Method Indwelling Catheter Indwelling Catheter Indwelling Catheter - Labs CBC & Chem 7: 01/11/19 05:38 01/11/19 05:38 Labs: Abnormal Lab Results - Last 24 Hours (Table) 01/12/19 01/12/19 01/13/19 Range/Units 16:46 20:30 06:16 POC Glucose (mg/dL) 250 H 333 H 234 H (75-99) mg/dL 01/13/19 Range/Units 11:49 POC Glucose (mg/dL) 322 H (75-99) mg/dL Microbiology - Last 24 Hours (Table) 01/11/19 16:00 Gram Stain - Preliminary Sputum Sputum Culture - Preliminary Gram Neg Bacilli 01/06/19 16:58 Blood Culture - Final Blood No Growth after 144 hours
[2019-01-13 17:03] LABS: Glucose,Whole Blood 273 mg/dL (75-99)
[2019-01-13 20:42] LABS: Glucose,Whole Blood 217 mg/dL (75-99)
[2019-01-14] MEDS: oxyCODONE-APAP 10-325MG 1 EACH TAB PO PRN ×2 (03:31→09:26)
[2019-01-14] MEDS: IPRATROPIUM-ALBUTEROL 3 ML NEB INHALATION PRN (04:16)
[2019-01-14] MEDS: LEVOTHYROXINE 50 MCG TAB PO SCH (05:48)
[2019-01-14 06:09] LABS: Glucose,Whole Blood 151 mg/dL (75-99)
[2019-01-14] MEDS: INSULIN ASPART (NovoLOG) 100 UNIT/ML VIAL SQ SCH ×4 (06:27→21:57)
[2019-01-14] MEDS: BUDESONIDE 1 MG/2 ML NEBU INHALATION SCH ×2 (07:34→20:26)
[2019-01-14] MEDS: FORMOTEROL FUMARATE 20 MCG/2 ML NEBU INHALATION SCH ×2 (07:34→20:26)
[2019-01-14] MEDS: IPRATROPIUM-ALBUTEROL 3 ML NEB INHALATION SCH ×4 (07:34→20:26)
[2019-01-14] MEDS ORDERED: METOPROLOL TARTRATE 25 MG TAB PO SCH (09:00)
[2019-01-14] MEDS: FUROSEMIDE 20 MG TAB PO SCH (09:21)
[2019-01-14] MEDS: NICOTINE 14MG/24HR PATCH TRANSDERM SCH (09:21)
[2019-01-14] MEDS: DILTIAZEM CD 180 MG CAP.ER.24H PO SCH (09:26)
[2019-01-14] MEDS: guaiFENesin SYRUP 100MG/5ML 200 MG/10 ML CUP PO PRN ×3 (09:26→21:57)
[2019-01-14] MEDS: MONTELUKAST 10 MG TAB PO SCH (09:27)
[2019-01-14] MEDS: SPIRONOLACTONE 25 MG TAB PO SCH (09:27)
[2019-01-14] MEDS: DIGOXIN 125 MCG TAB PO SCH (09:27)
[2019-01-14] MEDS: TAMSULOSIN 0.4 MG CAP.ER.24H PO SCH (09:27)
[2019-01-14] MEDS: DULoxetine HCL 60 MG CAPSULE.DR PO SCH (09:27)
[2019-01-14] MEDS: LISINOPRIL 10 MG TAB PO SCH (09:27)
[2019-01-14] MEDS: ATORVASTATIN 20 MG TAB PO SCH (09:27)
[2019-01-14] MEDS: ASPIRIN 81 MG PO SCH (09:27)
[2019-01-14] MEDS: DOXYCYCLINE 100 MG CAP PO SCH (09:27)
[2019-01-14] MEDS: predniSONE 20 MG TAB PO SCH (09:27)
[2019-01-14] MEDS: PREGABALIN 50 MG CAP PO SCH ×2 (09:27→20:14)
[2019-01-14] MEDS: METOPROLOL TARTRATE 25 MG TAB PO SCH ×2 (09:28→20:14)
[2019-01-14] MEDS: clonazePAM 0.5 MG TAB PO SCH ×2 (09:28→20:14)
[2019-01-14] MEDS: FLUCONAZOLE 100 MG TAB PO SCH (09:28)
[2019-01-14] MEDS: NYSTATIN 100,000UNIT/GM CREAM 30 GM TUBE TOPICAL SCH ×2 (09:35→20:19)
[2019-01-14] MEDS: POLYETHYLENE GLYCOL 3350 17 GM POWD.PACK PO SCH (09:35)
[2019-01-14] MEDS: RIVAROXABAN 20 MG TAB PO SCH (09:40)
--- NOTE | 2019-01-14 10:43 | P.PN ---
Subjective Progress Note Date: 01/14/19 Principal diagnosis: Shortness of breath, cough, wheezing This is a 63-year-old white female patient with past medical history of COPD, and patient is on home oxygen at 2 L, and maintenance dose prednisone, previous history of CVA/TIA, hypertension, hyperlipidemia, previous history of pulmonary embolism on Xarelto, hypothyroidism, anxiety, and former smoker, who was recently hospitalized at the [facility] and discharged home a week ago for acute exacerbation of COPD. Patient states she was treated with the IV steroids, nebulized treatments and doxycycline, she was discharged home a week ago, however she felt that she did not significantly improve, she was seen in the emergency room at [facility] on 12/30/2018 with complaints of productive cough, difficulty breathing, chills and shakes, patient at that time left AGAINST MEDICAL ADVICE. On 01/01/2019 18 came back for reevaluation with worsening dyspnea, cough, congestion, she states she just couldn't breathe, she is experiencing some chest tightness, she states she is bringing up some foul smelling and foul tasting green colored phlegm. Denied any chest pain, reports some subjective chills, she reports some swelling in her lower extremities, there is significant bruising to her left foot, and patient denies any recent trauma to it. He was found to be in A. fib RVR, she was placed on Cardizem drip, and she has currently converted to sinus rhythm, he was started on IV steroids, empiric antibiotics in the form of Levaquin, breathing treatments, she is on 5 L of O2, she states she at times feel like she is going to , and not leave the hospital. No fever, hemodynamically stable, lung sounds reveal diminished breath sounds with diffuse wheezes, patient does not appear to be in any acute distress. Chest x-ray was reviewed showing a mild persistent plate atelectasis at the left lung base. On 01/03/2019 patient seen in follow-up on selective care unit, patient to be lethargic, but arousable, she is currently on BiPAP, and apparent that she wore the BiPAP support overnight, she states that she is comfortable on a, breathing easier, she states she briefly had it off when her sisters were visiting and she was extremely dyspneic, and she preferred to be placed back on BiPAP, current pressures at 10/5, and FiO2 of 50%. Patient has been afebrile, hemodynamically stable. Antibiotic coverage is now with Augmentin, Levaquin was discontinued, but culture so far shows no growth, and Lavinia have been unable to collect a sputum culture, no complains of chest pain, IV steroids and nebulized bronchodilators continue. D-dimer was negative, troponin was negative. Echocardiogram showed preserved left ventricle systolic function, left ventricular hypertrophy, EF of 60-65%, moderate pulmonary hypertension with a PA systolic of 51.3 mmHg. On 01/04/2019 patient seen in follow-up on selective care unit, she is awake and alert, although she states she has been more sleepy lately, and she is wondering if it's her Klonopin making her more fatigued and sleepy, currently she is answ ering questions appropriately, she is awake, she is up in the chair, she has been able to ambulate to the bathroom with assistance, tolerated activity early well, she has been wearing BiPAP support most of the night, and intermittently throughout the day, she has been on nasal cannula for meals, still sounds quite bronchospastic, however somewhat improved since admission, she is occasionally bringing up some thick green colored sputum, her current antibiotic coverage is with Augmentin. Culture showed no growth, sputum culture has not been sent yet. Yesterday's blood gases were called in to us, and patient first had a blood gas showing pO2 of 140, pCO2 of 75% and pH of 7.35, this was done and FiO2 of 50% on BiPAP support with pressures of 10 and 5, and her FiO2 was then dropped to 35%, subsequently patient had another repeat blood gas showing pO2 of 83, pCO2 of 72, and pH of 7.40, this was done on 35%, and this is consistent with chronic hypercapnic respiratory failure. On 01/05/2018 patient seen in follow-up on medical surgical floor. She is on BiPAP, with pressures of 12 and 5, and FiO2 of 35%, she is lethargic, but arouses, she states she did not come off the BiPAP to eat because she is having increased shortness of breath, remains on oral antibiotics, IV steroids, and neb ulized bronchodilators. She has been slow to improve. She has had 2 sets of blood gases that demonstrated chronic hypercapnic respiratory failure, without evidence of acute decompensation, we will repeat another set of blood gas this morning, we adjusted her doses of Klonopin and Xanax. Lung sounds positive for diffuse wheezes and rhonchi. On 01/08/2019 patient seen in follow-up in the intensive care unit, she remains on BiPAP support with pressures of 12/5 and FiO2 of 30%. She is wearing the BiPAP most of the time, we will try Ventimask this morning, and we will titrate the oxygen to keep her O2 sat is 88% or above. Chest x-ray today, less chest x- ray within on 01/05/2017 showing chronic parenchymal changes and mild cardiomegaly without acute pulmonary process. She remains sinus rhythm sinus tach, and her rate is better controlled, currently on oral Cardizem. And she is on Xarelto for anticoagulation for history of atrial fibrillation. She is on empiric antibiotics, she is not able to cough up much sputum, blood cultures are negative, no fever or chills. She has made little improvement since admission, despite the next best medical treatment. Discussed CODE STATUS with her last weekend patient decided to be DO NOT RESUSCITATE CODE STATUS. Patient has been tried on nasal cannula a few times, however she rapidly desaturates and becomes short of breath and has to be placed back on BiPAP. Lung sounds are diminished, with diffuse crackles and rhonchi, and some wheezes, today's labs have been reviewed, showing white blood cell count of 10.7, hemoglobin of 11.6, sodium of 137, potassium is 4.4, chloride is 88, CO2 is 47, B1 is 29 creatinine 0.43. 0.9 normal saline infusing at 75 ML per hour, patient has developed mild edema in her lower extremities, and we will contact IV fluids to KVO. On 01/09/2019 seen in follow-up in the intensive care unit, she is currently on 35% Ventimask, her pulse ox is 88%, overnight patient's heart rate became more tachycardic likely in response to theophylline. This morning she is in A. fib flutter with a rate of 167 BPM, she is currently on Cardizem drip at 15 mg per hour. Pressures 149/78, still dyspneic, congested, and has a congested cough, not bringing up much sputum. Lung sounds are positive for diffuse rhonchi, and some wheezes, she remains on IV Solu-Medrol, 10 mg every 6 hours. Remains on nebulized bronchodilators, and antibiotics, cultures are negative thus far, unable to obtain sputum culture. No fever or chills. These labs have been reviewed, WBC is 19.6, hemoglobin is 12.4, sodium is 137, potassium is 3.8, chloride is 86, CO2 is 44, B1 is 23, creatinine is 0.42. She is on oral anticoagulation in the form of Xarelto. On 01/10/2019 patient is seen in follow-up on selective care unit. Doing much better, she is currently on 2 L of oxygen her pulse ox is 90%, she is afebrile, still remains in A. fib, tachycardia, with a rate of 131, still has a loose congested cough, not bringing up much sputum, overall she seems to have improved, as bronchospastic, she remains on IV steroids, nebulized bro nchodilators. Cultures have remained negative, patient is on fluconazole and doxycycline for antibiotic coverage. No new labs today. Patient is still very short of breath with any activity, not back to baseline, but overall has improved, did not require BiPAP support last night. On 12/14/2018 patient seen in follow-up on selective care unit, she is up in the recliner, in no acute distress, breathing is improving, FiO2 is down to 3 L, her pulse ox is 95%, no fever or chills, just complaining of severe generalized weakness, she has been working with physical therapy, but she will probably re quire placement in the subacute rehab after discharge related to deconditioning and generalized weakness. Sputum culture was positive for gram-negative bacilli, final cultures pending, blood cultures were negative, she remains on doxycycline and fluconazole, nebulized bronchodilators and oral steroids. Objective - Vital Signs Vital signs: Vital Signs Temp 98.8 F 01/14/19 03:59 Pulse 104 H 01/14/19 08:02 Resp 20 01/14/19 04:00 BP 124/63 01/14/19 03:59 Pulse Ox 95 01/14/19 03:59 Intake & Output 01/13/19 01/14/19 01/14/19 19:59 06:59 18:59 Intake Total Output Total Balance Weight Intake: Oral Output: Urine Other: Voiding Method - Exam GENERAL EXAM: pleasant, 63-year-old white female, on 3 L of oxygen pulse ox of 95% EYES: Normal reaction of pupils, equal size. Conjunctiva pink, sclera white. NOSE: Clear with pink turbinates. THROAT: No erythema or exudates. NECK: No masses, no JVD, no thyroid enlargement, no adenopathy. CHEST: No chest wall deformity. Symmetrical expansion. LUNGS: Equal air entry with diffuse scattered rhonchi CVS: Irregular rate and rhythm, normal S1 and S2, no gallops, no murmurs, no rubs ABDOMEN: Soft, nontender. No hepatosplenomegaly, normal bowel sounds, no guarding or rigidity. EXTREMITIES: No clubbing, trace lower extremity edema left greater than the right, no cyanosis, 2+ pulses and upper and lower extremities. There are extensive bruises involving the left foot, left lower leg, and to a lesser degree right lower leg, toes on the left foot, and patient denies any recent trauma, he is on chronic anticoagulation MUSCULOSKELETAL: Muscle strength and tone normal. SPINE: No scoliosis or deformity SKIN: No rashes CENTRAL NERVOUS SYSTEM: Alert and oriented -3. No focal deficits, tone is normal in all 4 extremities. PSYCHIATRIC: Alert and oriented -3. Appropriate affect. Intact judgment and insight. - Labs CBC & Chem 7: 01/11/19 05:38 01/11/19 05:38 Labs: Abnormal Lab Results - Last 24 Hours (Table) 01/13/19 01/13/19 01/13/19 Range/Units 11:49 16:50 20:40 POC Glucose (mg/dL) 322 H 273 H 217 H (75-99) mg/dL 01/14/19 Range/Units 06:08 POC Glucose (mg/dL) 151 H (75-99) mg/dL Microbiology - Last 24 Hours (Table) 01/11/19 16:00 Gram Stain - Preliminary Sputum Sputum Culture - Preliminary Gram Neg Bacilli Assessment and Plan Plan: Assessment: #1. Acute on chronic hypoxemic respiratory failure secondary to acute exacerbation of chronic obstructive pulmonary disease complicated by tracheobronchitis #2. Chronic hypercapnic respiratory failure related to advanced COPD #3. New-onset A. fib RVR, patient has since converted to sinus rhythm #4. History of pulmonary embolism on Xarelto #5. Recent hospitalization at [facility] for COPD exacerbation, patient was discharged home on combination of prednisone and doxycycline #6. Advanced COPD on home oxygen at 3 L, and maintenance dose prednisone #7. Former smoker #8. Hypothyroidism #9. Previous history of CVA #10. Hypertension #11. Hyperlipidemia #12. Anxiety #13. Chronic left leg swelling, and there is bruising involving the left foot, denies any recent trauma #14. Degenerative disc disease #15. Valvular heart disease, severe mitral regurgitation, and moderate pulmonary hypertension with PA systolic of 57 mmHg is seen on the echocardiogram from May 2018 Plan: Continue current medical treatment, patient is improving in terms of breathing, but she has severe generalized weakness, she has been working with physical therapy. Continue with current antibiotic coverage, final culture of the sputum gram-negative bacilli is pending, clinically asymptomatic, no fever or chills, breathing is improving. Follow up chest X-ray tomorrow. Vitals are stable, heart rate is controlled, patient is on oral anticoagulation, increase activity as tolerated, anticipate discharge to subacute rehab possibly tomorrow I performed a history & physical examination of the patient and discussed their management with my nurse practitioner, Renee Dior. I reviewed the nurse practitioner's note and agree with the documented findings and plan of care. Lung sounds are positive for diffuse rhonchi. The findings and the impression was discussed with the patient. I attest to the documentation by the nurse practitioner. Time with Patient: Less than 30
[2019-01-14 12:08] LABS: Glucose,Whole Blood 204 mg/dL (75-99)
--- NOTE | 2019-01-14 12:24 | P.PN ---
Subjective Progress Note Date: 01/14/19 Principal diagnosis: New Onset Atrial Fibrillation The patient is a 63-year-old female with past medical history of current smoking, COPD with oxygen use at home, hypertension, hyperlipidemia, valvular heart disease, CVA, PE anticoagulated with Xarelto and atrial fibrillation. Nilesh stewart is seen this a.m. sitting up in chair in no acute acute distress. Patient continue sinus rhythm on telemetry, current heart rate 101. Discharge planning continues and it is suggested patient go to rehab. Advise continued therapy inpatient as patient continues with course rhonchi, wheeze and bloody sputum production. Patient continues on 3 L NC O2. Henry catheter remains in place. Patient states she is unable to walk across the room without being short of breath. Advised to continue same medical/medication therapy. 01/14/2019 Pt seen and examined this am, sitting up eating breakfast in bed. Pt states she feels much improved and would like to go to Rehab. BP 138/60. Patient continues sinus tach PACs, HR 114. 92% on 3 L NC O2. Aeration to the lungs much improved, cough much improved. No lower extremity edema. No new labs. Glucose remains mildly elevated at 151. Heart rate overnight continue sinus tach 100- 115, will add beta stephanie. PHYSICAL EXAMINATION: VSS, Afebrile. ST with pac's, HR 114. HEENT: Head is atraumatic, normocephalic. Pupils are equal, round. Sclerae anicteric. Conjunctivae are clear. Mucous membranes of the mouth are dry. Neck is supple. There is no jugular venous distention. No carotid bruit is heard. No thyromegaly. LUNGS: Diminished lung russell with mild wheeze bilaterally lower lunch russell. Upper lung russell CTA. No chest wall tenderness is noted on palpation. HEART: Regular rate and rhythm without murmurs, rubs or gallops. S1 and S2 heard. ABDOMEN: Abdominal exam revealed normal bowel sounds. The abdomen was soft, non- tender, and without masses, organomegaly, or appreciable enlargement of the abdominal aorta. EXTREMITIES: Examination of the extremities revealed easily palpable radial, femoral and pedal pulses. No edema bilaterally on feet. There was no cyanosis, clubbing or edema. No calf tenderness noted. VASCULAR: Radial and dorsalis pedis pulses palpated, no evidence of clubbing. NEUROLOGIC: Patient is awake, alert and oriented x3. There were no obvious focal neurologic abnormalities. FINAL IMPRESSION: 1. Acute on chronic respiratory failure secondary to COPD exacerbation, improved. 2. New onset A. fib RVR, currently sinus tachycardia with pac's. 3. PE history currently on Xarelto. 4. Moderate pulmonary hypertension. 5. Current smoking. PLAN: Patient continues sinus tachycardia with pac's, HR 114. START Metoprolol Tartrate 25mg twice daily. DECREASE Cardizem to 240mg once daily. Continue same medical/medication regime. Education on smoking cessation. Advise Henry catheter discontinuation. CLEAR FOR DISCHARGE from a cardiology standpoint. Objective - Vital Signs Vital signs: Vital Signs Temp 98.3 F 01/14/19 07:50 Pulse 88 01/14/19 11:28 Resp 18 01/14/19 07:50 BP 138/60 01/14/19 07:50 Pulse Ox 92 L 01/14/19 07:50 Intake & Output 01/13/19 01/14/19 01/14/19 19:59 06:59 18:59 Intake Total Output Total Balance Weight Intake: Oral Output: Urine Other: Voiding Method Indwelling Catheter - Labs CBC & Chem 7: 01/11/19 05:38 01/11/19 05:38 Labs: Abnormal Lab Results - Last 24 Hours (Table) 01/13/19 01/13/19 01/14/19 Range/Units 16:50 20:40 06:08 POC Glucose (mg/dL) 273 H 217 H 151 H (75-99) mg/dL 01/14/19 Range/Units 11:48 POC Glucose (mg/dL) 204 H (75-99) mg/dL Microbiology - Last 24 Hours (Table) 01/11/19 16:00 Gram Stain - Final Sputum Sputum Culture - Final Pseudomonas aeruginosa
--- NOTE | 2019-01-14 14:12 | P.PN ---
Progress Note - Text Progress Note Date: 01/14/19 Chief Complaint: Short of breath Interval history: This is a pleasant 63-year-old patient of Dr. Trevor Hamilton. 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 Chronic stable medical conditions include hypertension, hyperlipidemia, mild cognitive impairment, hypothyroid, spinal stenosis, osteoarthritis, severe mitral and moderate tricuspid valve regurgitation. Patient about 2 weeks ago was admitted to [facility]. She is not sure of the diagnosis but it was a long issue. When she was discharged she says she really didn't feel much better. She continues to get progressively short of breath and wheezing. Was bringing up some phlegm green in color. Denies any fever and chills. She also been noticing increasing palpitation and heart skipping and flipping beats. Appetite is gone down. Weak and tired. Does use a cane or a walker. Patient was found to be in atrial fibrillation with rapid ventricular rate. This was initially started on IV antibiotics, IV steroids, IV Cardizem drip and admitted for the same. On January 03 patient reverted to sinus rhythm. Today-sitting up in a chair. Tolerate some diet. No new issues. Has a cough. Not expectorating.. Been in sinus rhythm. Review of systems: Was done for constitutional, cardiovascular, GI, pulmonary. relevant finding as above Active Medications Albuterol/Ipratropium (Duoneb 0.5 Mg-3 Mg/3 Ml Soln) 3 ml INHALATION RT-QID [facility] Last Admin: 01/14/19 11:17 Dose: 3 ml Documented by: Albuterol/Ipratropium (Duoneb 0.5 Mg-3 Mg/3 Ml Soln) 3 ml INHALATION RT-Q2H PRN PRN Reason: Shortness Of Breath Or Wheezing Last Admin: 01/14/19 04:16 Dose: 3 ml Documented by: Aspirin (Aspirin) 81 mg PO DAILY [facility] Last Admin: 01/14/19 09:27 Dose: 81 mg Documented by: Atorvastatin Calcium (Lipitor) 20 mg PO DAILY [facility] Last Admin: 01/14/19 09:27 Dose: 20 mg Documented by: Budesonide (Pulmicort) 1 mg INHALATION RT-BID [facility] Last Admin: 01/14/19 07:34 Dose: 1 mg Documented by: Clonazepam (Klonopin) 0.5 mg PO HS [facility] Last Admin: 01/13/19 20:07 Dose: 0.5 mg Documented by: Clonazepam (Klonopin) 0.5 mg PO QAM [facility] Last Admin: 01/14/19 09:28 Dose: 0.5 mg Documented by: Digoxin (Lanoxin) 125 mcg IVP ONCE PRN PRN Reason: Heart rate >165 Digoxin (Lanoxin) 125 mcg PO DAILY [facility] Last Admin: 01/14/19 09:27 Dose: 125 mcg Documented by: Diltiazem HCl (Cardizem Cd) 240 mg PO DAILY [facility] Diphenhydramine HCl (Benadryl) 25 mg PO BID PRN PRN Reason: Allergic Reaction Duloxetine HCl (Cymbalta) 60 mg PO DAILY [facility] Last Admin: 01/14/19 09:27 Dose: 60 mg Documented by: Fluconazole (Diflucan) 100 mg PO DAILY [facility] Last Admin: 01/14/19 09:28 Dose: 100 mg Documented by: Formoterol Fumarate (Perforomist) 20 mcg INHALATION RT-BID [facility] Last Admin: 01/14/19 07:34 Dose: 20 mcg Documented by: Furosemide (Lasix) 40 mg PO DAILY [facility] Last Admin: 01/14/19 09:21 Dose: 40 mg Documented by: Guaifenesin (Robitussin) 200 mg PO Q6H PRN PRN Reason: Cough Last Admin: 01/14/19 09:26 Dose: 200 mg Documented by: Insulin Aspart (Novolog) 0 unit SQ ACHS [facility]; Protocol Last Admin: 01/14/19 12:18 Dose: 6 unit Documented by: Levothyroxine Sodium (Synthroid) 50 mcg PO DAILY@0630 [facility] Last Admin: 01/14/19 05:48 Dose: 50 mcg Documented by: Lisinopril (Zestril) 10 mg PO DAILY [facility] Last Admin: 01/14/19 09:27 Dose: 10 mg Documented by: Lorazepam (Ativan) 0.5 mg IV Q6HR PRN PRN Reason: Anxiety Last Admin: 01/10/19 04:07 Dose: 0.5 mg Documented by: Metoprolol Tartrate (Lopressor) 25 mg PO BID [facility] Last Admin: 01/14/19 09:28 Dose: 25 mg Documented by: Miscellaneous Information (Potassium Per Protocol) 1 each MISCELLANE DAILY PRN; Protocol PRN Reason: Per Protocol Montelukast Sodium (Singulair) 10 mg PO DAILY [facility] Last Admin: 01/14/19 09:27 Dose: 10 mg Documented by: Morphine Sulfate (Ms Contin) 60 mg PO Q8H PRN PRN Reason: SEVERE Pain Last Admin: 01/12/19 13:19 Dose: 60 mg Documented by: Nicotine (Habitrol 14mg/24hr Patch) 1 patch TRANSDERM DAILY [facility] Last Admin: 01/14/19 09:21 Dose: 1 patch Documented by: Nitroglycerin (Nitrostat) 0.4 mg SUBLINGUAL Q5M PRN PRN Reason: Chest Pain Nystatin (Mycostatin Cream) 1 applic TOPICAL BID [facility] Last Admin: 01/14/19 09:35 Dose: Not Given Documented by: Oxycodone/Acetaminophen (Percocet 10-325) 1 each PO BID PRN PRN Reason: Breakthrough Pain Last Admin: 01/14/19 09:26 Dose: 1 each Documented by: Polyethylene Glycol (Miralax) 17 gm PO DAILY [facility] Last Admin: 01/14/19 09:35 Dose: Not Given Documented by: Prednisone () 60 mg PO DAILY [facility] Last Admin: 01/14/19 09:27 Dose: 60 mg Documented by: Pregabalin (Lyrica) 150 mg PO BID [facility] Last Admin: 01/14/19 09:27 Dose: 150 mg Documented by: Rivaroxaban (Xarelto) 20 mg PO DAILY [facility] Last Admin: 01/14/19 09:40 Dose: 20 mg Documented by: Spironolactone (Aldactone) 25 mg PO DAILY [facility] Last Admin: 01/14/19 09:27 Dose: 25 mg Documented by: Tamsulosin HCl (Flomax) 0.4 mg PO DAILY [facility] Last Admin: 01/14/19 09:27 Dose: 0.4 mg Documented by: Physical examination: VITAL SIGNS: 98.3, 113, 18, 138/60, 92% on 3 L GENERAL:. Sitting upon a chair, more awake comfortable EYES: Pupils equal. Conjunctiva normal. HEENT: External appearance of nose and ears normal, oral cavity normal. NECK: JVD unable to assess; masses not palpable. HEART: Heart sounds irregular, no edema]. LUNGS: Respiratory rate increased, diminished breath sounds ABDOMEN: Soft, nontender, liver spleen not palpable, no masses palpable. PSYCH: AAO 3, tired INVESTIGATIONS, reviewed in the clinical context: Accu-Cheks noted Previous testing: White count 11.1 hemoglobin 11.9 platelets 181 potassium 3.8 creatinine 0.54 Troponin I 3 negative EKG tracing personally reviewed by me shows atrial fibrillation with a rapid ventricular rate Chest x-ray film personally reviewed by me-hyperinflation no obvious infiltrate Assessment: -Paroxysmal atrial fibrillation with rapid ventricular rate, chronically on xarelto, in and out of sinus rhythm -Acute hypoxic and hypercapnic respiratory failure requiring BiPAP, now on nasal cannula -Acute COPD exacerbation in a current smoker, some improvement -Acute tracheal bronchitis -Acute oropharyngeal candidiasis from use of steroids and antibiotics, improved -Severe hyperglycemia secondary steroids on insulin drip, now discontinued -Hyperlipidemia -Essential hypertension -Mild cognitive impairment -Hypothyroid -Chronic anxiety depression otherwise specified -Chronic gait dysfunction uses a cane and a walker -Chronic nicotine dependence patient cigarette smoker -CODE STATUS DO NOT RESUSCITATE. Plan: Waiting to go to the ECF. Start metoprolol on 25 mg twice a day and decrease Cardizem to 240 mg once a day as per cardiology. Care discussed the patient.
[2019-01-14] MEDS: MORPHINE SULFATE ER 30 MG TABLET PO PRN (15:09)
[2019-01-14 17:14] LABS: Glucose,Whole Blood 316 mg/dL (75-99)
[2019-01-14] MEDS ORDERED: INSULIN ASPART (NovoLOG) 100 UNIT/ML VIAL SQ ONE (17:24)
[2019-01-14 20:44] LABS: Glucose,Whole Blood 231 mg/dL (75-99)
[2019-01-15 06:08] LABS: Glucose,Whole Blood 143 mg/dL (75-99)
[2019-01-15] MEDS: LEVOTHYROXINE 50 MCG TAB PO SCH (06:19)
[2019-01-15] MEDS: INSULIN ASPART (NovoLOG) 100 UNIT/ML VIAL SQ SCH ×3 (06:19→17:00)
[2019-01-15] MEDS: FORMOTEROL FUMARATE 20 MCG/2 ML NEBU INHALATION SCH (07:16)
[2019-01-15] MEDS: IPRATROPIUM-ALBUTEROL 3 ML NEB INHALATION SCH ×3 (07:16→15:09)
[2019-01-15] MEDS: BUDESONIDE 1 MG/2 ML NEBU INHALATION SCH (07:16)
--- NOTE | 2019-01-15 07:53 | XR ---
EXAMINATION TYPE: XR chest 1V portable DATE OF EXAM: 01/15/2019 COMPARISON: 01/05/2019 HISTORY: Shortness of breath TECHNIQUE: Single frontal view of the chest is obtained. FINDINGS: Left basilar opacity is more confluent linear, likely atelectasis. Hazy right basilar opac ity is also seen along the hemidiaphragm dependently, also likely atelectasis. Emphysematous changes of the lungs are less pronounced given the decrease inspiratory effort in comparison to the prior. Ca rdiomediastinal silhouette is stable. No sizable pneumothorax. Osseous structures are grossly intact. IMPRESSION: Bibasilar opacities are favored to represent atelectasis given their linear morphology. These are however more confluent than the prior, likely on the basis of decreased inspiratory effort.
[2019-01-15] MEDS: NICOTINE 14MG/24HR PATCH TRANSDERM SCH ×2 (08:55→13:30)
[2019-01-15] MEDS: POLYETHYLENE GLYCOL 3350 17 GM POWD.PACK PO SCH ×2 (08:55→09:04)
[2019-01-15] MEDS: oxyCODONE-APAP 10-325MG 1 EACH TAB PO PRN ×2 (08:56→16:33)
[2019-01-15] MEDS: MONTELUKAST 10 MG TAB PO SCH (08:57)
[2019-01-15] MEDS: predniSONE 20 MG TAB PO SCH (08:57)
[2019-01-15] MEDS: PREGABALIN 50 MG CAP PO SCH (08:57)
[2019-01-15] MEDS: clonazePAM 0.5 MG TAB PO SCH (08:57)
[2019-01-15] MEDS: ASPIRIN 81 MG PO SCH (08:58)
[2019-01-15] MEDS: DIGOXIN 125 MCG TAB PO SCH (08:58)
[2019-01-15] MEDS: RIVAROXABAN 20 MG TAB PO SCH (08:58)
[2019-01-15] MEDS: METOPROLOL TARTRATE 25 MG TAB PO SCH (08:58)
[2019-01-15] MEDS: FUROSEMIDE 20 MG TAB PO SCH (08:59)
[2019-01-15] MEDS: SPIRONOLACTONE 25 MG TAB PO SCH (08:59)
[2019-01-15] MEDS: TAMSULOSIN 0.4 MG CAP.ER.24H PO SCH (09:00)
[2019-01-15] MEDS: ATORVASTATIN 20 MG TAB PO SCH (09:00)
[2019-01-15] MEDS: DULoxetine HCL 60 MG CAPSULE.DR PO SCH (09:00)
[2019-01-15] MEDS ORDERED: DILTIAZEM CD 240 MG CAP.ER.24H PO SCH (09:00)
[2019-01-15] MEDS: FLUCONAZOLE 100 MG TAB PO SCH (09:00)
[2019-01-15] MEDS: LISINOPRIL 10 MG TAB PO SCH (09:00)
[2019-01-15] MEDS: NYSTATIN 100,000UNIT/GM CREAM 30 GM TUBE TOPICAL SCH (09:02)
[2019-01-15 09:05] VITALS: RESP 18; TEMP 98.6
--- NOTE | 2019-01-15 10:35 | P.PN ---
Subjective Progress Note Date: 01/15/19 Patient is a 63-year-old female with a past medical history of COPD on home home oxygen, hypertension, dyslipidemia, valvular heart disease, CVA , PE anticoagulated with Xarelto, and current smoker who presented with complaints of shortness of breath. He follows with Dr. Silva in the office. She was r ecently discharged a few days ago after COPD exacerbation. States she continues to have a productive cough with green sputum, low-grade fevers, and shortness of breath. Denies any palpitations or chest pain. Remaining in normal sinus rhythm this morning. 01/10/2019 Patient seen and examined this morning, sitting up in the chair at bedside. Blood pressure 142/70 with a heart rate of 110-120 this morning, 90% on 2 L of oxygen. Potassium 3.2 today, magnesium 2.2. Still short of breath, continues to have congestive cough. 01/11/2019 Patient seen and examined this morning, sitting up in the chair at bedside. Quite short of breath, moving from bedside to chair, otherwise the patient seems to be improving overall. In normal sinus rhythm this morning, heart rate 90. Blood pressure 120/60. Plasma lactic acid level 3.6. 01/12/2019 Patient seen and examined this morning, blood pressure 136/90 with a heart rate in the 90s, 91% on 3 L of oxygen. No lab data today. She did have some episodes of atrial fibrillation, this morning she is in a normal sinus rhythm with PACs. 01/15/2019 Patient seen and examined this morning, sitting up in chair bedside, overall doing much better today. Anticipating transferred to rehab today. Blood pressure 135/60, heart rate 90, 89% on 3 L of oxygen. Objective - Vital Signs Vital signs: Vital Signs Temp 98.6 F 01/15/19 08:30 Pulse 90 01/15/19 08:30 Resp 18 01/15/19 08:30 BP 135/59 01/15/19 08:30 Pulse Ox 89 L 01/15/19 08:30 Intake & Output 01/14/19 01/15/19 01/15/19 18:59 06:59 18:59 Intake Total 630 Output Total 1500 Balance -870 Weight 73.5 kg Intake: IV 30 Invasive Line 4 30 Oral 600 Output: Urine 1500 Other: Voiding Method Indwelling Catheter Indwelling Catheter # Bowel Movements 0 - Exam PHYSICAL EXAMINATION: GENERAL: 63-year-old gentleman in no acute distress at the time of my examination HEENT: Head is atraumatic, normocephalic. Pupils equal, round. Sclera anicteric. Conjunctiva are clear. Mucous membranes of the mouth are moist. Neck is supple. There is no elevated jugular venous pressure. No carotid bruit is heard. HEART EXAMINATION: Heart S1, S2 normal. No murmur or gallop heard. CHEST EXAMINATION: Lungs reveal improvement in air entry, fine wheezes throughout ABDOMEN: Soft, nontender. Bowel sounds are heard. No organomegaly noted. EXTREMITIES: 2+ peripheral pulses with no evidence of peripheral edema and no calf tenderness noted. NEUROLOGIC patient is awake, alert and oriented 3 . . - Labs CBC & Chem 7: 01/11/19 05:38 01/11/19 05:38 Labs: Abnormal Lab Results - Last 24 Hours (Table) 01/14/19 01/14/19 01/14/19 Range/Units 11:48 16:57 20:43 POC Glucose (mg/dL) 204 H 316 H 231 H (75-99) mg/dL 01/15/19 Range/Units 06:06 POC Glucose (mg/dL) 143 H (75-99) mg/dL Microbiology - Last 24 Hours (Table) 01/11/19 16:00 Gram Stain - Final Sputum Sputum Culture - Final Pseudomonas aeruginosa Assessment and Plan Plan: Assessment: #1. Acute on chronic hypoxemic respiratory failure secondary to acute exacerbation of chronic obstructive pulmonary disease complicated by tracheobronchitis #2. New-onset A. fib RVR, patient has since converted to sinus rhythm, paroxysmal #3. History of pulmonary embolism on Xarelto #4. Recent hospitalization at [facility] for COPD exacerbation, patient was discharged home on accommodation of prednisone and doxycycline #5. Advanced COPD on home oxygen at 3 L, and maintenance dose prednisone #6. Former smoker #7. Hypothyroidism #8. Previous history of CVA #9. Hypertension #10. Hyperlipidemia #11. Anxiety #12. Chronic left leg swelling, and there is bruising involving the left foot, denies any recent trauma #13. Degenerative disc disease #14. Valvular heart disease, severe mitral regurgitation, and moderate pulmonary hypertension with PA systolic of 57 mmHg is seen on the echocardiogram from May 2018 Plan From cardiology's perspective, we'll recommend to continue this patient on her current medications. Arrangements are being made for possible transfer to rehab. DNP note has been reviewed, I agree with a documented findings and plan of care. Patient was seen and examined.
[2019-01-15 11:25] LABS: Glucose,Whole Blood 203 mg/dL (75-99)
[2019-01-15 13:30] VITALS: BP 95/52
--- NOTE | 2019-01-15 13:36 | P.DS ---
Providers Date of admission: 01/01/19 23:53 Expected date of discharge: 01/15/19 Attending physician: Jose C Nuñez Consults: 01/01/19 23:45 Consult Physician Urgent Consulting Provider: Mark Simpson Consult Reason/Comments: copd exac Do you want consulting provider notified?: Yes Consult Physician Urgent Consulting Provider: Bibiana Terry Consult Reason/Comments: a-fib with RVR, cp Do you want consulting provider notified?: Yes 01/06/19 10:56 Consult Physician Routine Consulting Provider: Bibiana Terry Consult Reason/Comments: high heart rate Do you want consulting provider notified?: Already Contacted Primary care physician: Trevor Hamilton MD Hospital Course: Chief Complaint: Short of breath Hospital course: This is a pleasant 63-year-old patient of Dr. Trevor Hamilton. 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 Chronic stable medical conditions include hypertension, hyperlipidemia, mild cognitive impairment, hypothyroid, spinal stenosis, osteoarthritis, severe mitral and moderate tricuspid valve regurgitation. Patient about 2 weeks ago was admitted to [facility]. She is not sure of the diagnosis . When she was discharged she says she really didn't feel much better. She continues to get progressively short of breath and wheezing. Was bringing up some phlegm green in color. Denies any fever and chills. She also been noticing increasing palpitation and heart skipping and flipping beats. Appetite is gone down. Weak and tired. Does use a cane or a walker. Patient was found to be in atrial fibrillation with rapid ventricular rate. This was initially started on IV antibiotics, IV steroids, IV Cardizem drip and admitted for the same. On January 03 patient reverted to sinus rhythm. Admitted with proximal atrial fibrillation with rapid ventricular rate, now in sinus rhythm. Acute hypoxic and hypercapnic respiratory failure requiring BiPAP, acute COPD exacerbation, acute candidiasis and tracheobronchitis. Today-sitting up in a chair. Reluctant to get the Henry catheter out.. Did explain in detail the benefits of the same. Including infection. Now agreeable. Eating better. Less short of breath. Consultation: Dr. [facility] from cardiology Dr. [facility] from pulmonary Physical examination: VITAL SIGNS: 98.6, 90, 18, 135/59, 89% on 3 L GENERAL:. Sitting upon a chair, awake EYES: Pupils equal. Conjunctiva normal. HEENT: External appearance of nose and ears normal, oral cavity normal. NECK: JVD unable to assess; masses not palpable. HEART: Heart sounds irregular, no edema]. LUNGS: Respiratory rate increased, diminished breath sounds ABDOMEN: Soft, nontender, liver spleen not palpable, no masses palpable. PSYCH: AO 3, tired INVESTIGATIONS, reviewed in the clinical context: Accu-Cheks noted Previous testing: White count 11.1 hemoglobin 11.9 platelets 181 potassium 3.8 creatinine 0.54 Troponin I 3 negative EKG tracing personally reviewed by me shows atrial fibrillation with a rapid ventricular rate Chest x-ray film personally reviewed by me-hyperinflation no obvious infiltrate Assessment: -Paroxysmal atrial fibrillation with rapid ventricular rate, chronically on xarelto, in and out of sinus rhythm -Acute hypoxic and hypercapnic respiratory failure requiring BiPAP, now on nasal cannula -Acute COPD exacerbation in a current smoker, some improvement -Acute tracheal bronchitis -Acute oropharyngeal candidiasis from use of steroids and antibiotics, improved -Severe hyperglycemia secondary steroids on insulin drip, now discontinued -Hyperlipidemia -Essential hypertension -Mild cognitive impairment -Hypothyroid -Chronic anxiety depression otherwise specified -Chronic gait dysfunction uses a cane and a walker -Chronic nicotine dependence patient cigarette smoker -CODE STATUS DO NOT RESUSCITATE. Disposition: [facility] Patient Condition at Discharge: Fair Plan - Discharge Summary Discharge Rx Participant: No New Discharge Prescriptions: New Aspirin 81 mg PO DAILY chew Diltiazem Cd [Cardizem CD] 240 mg PO DAILY cap.er.24h Fluconazole [Diflucan] 100 mg PO DAILY #5 tab Nicotine 14Mg/24Hr Patch [Habitrol] 1 patch TRANSDERM DAILY #14 patch clonazePAM [KlonoPIN] 0.5 mg PO QAM #3 tab Digoxin [Lanoxin] 125 mcg PO DAILY tab Metoprolol Tartrate [Lopressor] 25 mg PO BID tab Nitroglycerin Sl Tabs [Nitrostat] 0.4 mg SUBLINGUAL Q5M PRN tab PRN Reason: Chest Pain Formoterol Fumarate [Perforomist] 20 mcg INHALATION RT-BID nebu Budesonide [Pulmicort] 1 mg INHALATION RT-BID nebu Lisinopril [Zestril] 10 mg PO DAILY tab Continue Simvastatin [Zocor] 20 mg PO DAILY Rivaroxaban [Xarelto] 20 mg PO DAILY Levothyroxine Sodium [Synthroid] 50 mcg PO DAILY DULoxetine HCL [Cymbalta] 60 mg PO DAILY Albuterol Inhaler [Ventolin Hfa Inhaler] 2 puff INHALATION RT-Q6H PRN PRN Reason: Shortness Of Breath Ipratropium-Albuterol Nebulize [Duoneb 0.5 mg-3 mg/3 ml Soln] 3 ml INHALATION RT-QID PRN PRN Reason: Shortness Of Breath Furosemide [Lasix] 40 mg PO DAILY Nystatin 100,000Unit/gm Cream [Mycostatin Cream] 1 applic TOPICAL BID Montelukast [Singulair] 10 mg PO DAILY Tamsulosin [Flomax] 0.4 mg PO DAILY Polyethylene Glycol 3350 [Miralax] 17 gm PO DAILY Spironolactone [Aldactone] 25 mg PO DAILY Pregabalin [Lyrica] 150 mg PO BID #6 cap Morphine Sulfate ER [Ms Contin] 60 mg PO Q8H #9 tab oxyCODONE-APAP 10-325MG [Percocet 10-325 mg] 1 tab PO BID PRN #6 tab PRN Reason: Breakthrough Pain Changed clonazePAM [KlonoPIN] 0.5 mg PO HS #3 tab predniSONE 40 mg PO DIRECTED #1 tab Discontinued Fluticasone/Vilanterol [Breo Ellipta 200-25 Mcg INH] 1 puff INHALATION RT- DAILY clonazePAM [KlonoPIN] 2 mg PO QAM Diltiazem HCl [Diltiazem 24Hr ER (CD)] 180 mg PO DAILY Tiotropium [place] [Spiriva Respimat] 2 puff INHALATION RT-DAILY Furosemide [Lasix] 20 mg PO DAILY@1500 PRN PRN Reason: Edema Doxycycline Hyclate [Vibramycin] 100 mg PO ONCE Discharge Medication List Simvastatin [Zocor] 20 mg PO DAILY 06/06/14 [History] DULoxetine HCL [Cymbalta] 60 mg PO DAILY 07/22/17 [History] Levothyroxine Sodium [Synthroid] 50 mcg PO DAILY 07/22/17 [History] Rivaroxaban [Xarelto] 20 mg PO DAILY 07/22/17 [History] Albuterol Inhaler [Ventolin Hfa Inhaler] 2 puff INHALATION RT-Q6H PRN 06/01/18 [History] Furosemide [Lasix] 40 mg PO DAILY 06/01/18 [History] Ipratropium-Albuterol Nebulize [Duoneb 0.5 mg-3 mg/3 ml Soln] 3 ml INHALATION RT-QID PRN 06/01/18 [History] Montelukast [Singulair] 10 mg PO DAILY 12/30/18 [History] Nystatin 100,000Unit/gm Cream [Mycostatin Cream] 1 applic TOPICAL BID 12/30/18 [History] Polyethylene Glycol 3350 [Miralax] 17 gm PO DAILY 12/30/18 [History] Spironolactone [Aldactone] 25 mg PO DAILY 12/30/18 [History] Tamsulosin [Flomax] 0.4 mg PO DAILY 12/30/18 [History] Aspirin 81 mg PO DAILY chew 01/15/19 [Rx] Budesonide [Pulmicort] 1 mg INHALATION RT-BID nebu 01/15/19 [Rx] Digoxin [Lanoxin] 125 mcg PO DAILY tab 01/15/19 [Rx] Diltiazem Cd [Cardizem CD] 240 mg PO DAILY cap.er.24h 01/15/19 [Rx] Fluconazole [Diflucan] 100 mg PO DAILY #5 tab 01/15/19 [Rx] Formoterol Fumarate [Perforomist] 20 mcg INHALATION RT-BID nebu 01/15/19 [Rx] Lisinopril [Zestril] 10 mg PO DAILY tab 01/15/19 [Rx] Metoprolol Tartrate [Lopressor] 25 mg PO BID tab 01/15/19 [Rx] Morphine Sulfate ER [Ms Contin] 60 mg PO Q8H #9 tab 01/15/19 [Rx] Nicotine 14Mg/24Hr Patch [Habitrol] 1 patch TRANSDERM DAILY #14 patch 01/15/19 [Rx] Nitroglycerin Sl Tabs [Nitrostat] 0.4 mg SUBLINGUAL Q5M PRN tab 01/15/19 [Rx] Pregabalin [Lyrica] 150 mg PO BID #6 cap 01/15/19 [Rx] clonazePAM [KlonoPIN] 0.5 mg PO HS #3 tab 01/15/19 [Rx] clonazePAM [KlonoPIN] 0.5 mg PO QAM #3 tab 01/15/19 [Rx] oxyCODONE-APAP 10-325MG [Percocet 10-325 mg] 1 tab PO BID PRN #6 tab 01/15/19 [Rx] predniSONE 40 mg PO DIRECTED #1 tab 01/15/19 [Rx] Follow up Appointment(s)/Referral(s): [facility] [Provider Group] - 1 Week Rik Morfin MD [STAFF PHYSICIAN] - 1 Week Trevor Hamilton MD [Primary Care Provider] - 1-2 days [facility], [NON-STAFF] - Patient Instructions/Handouts: A-fib (Atrial Fibrillation) (DC), Mitral Regurgitation (DC), COPD (Chronic Obstructive Pulmonary Disease) (DC), How to Care for Your Midline Catheter (DC)
[2019-01-15 15:39] VITALS: PULSE 78
--- NOTE | 2019-01-15 15:44 | P.PN ---
Subjective Progress Note Date: 01/15/19 Principal diagnosis: This is a 63-year-old white female patient with past medical history of COPD, and patient is on home oxygen at 2 L, and maintenance dose prednisone, previous history of CVA/TIA, hypertension, hyperlipidemia, previous history of pulmonary embolism on Xarelto, hypothyroidism, anxiety, and former smoker, who was recently hospitalized at the [facility] and discharged home a week ago for acute exacerbation of COPD. Patient states she was treated with the IV steroids, nebulized treatments and doxycycline, she was discharged home a week ago, however she felt that she did not significantly improve, she was seen in the emergency room at [facility] on 12/30/2018 with complaints of productive cough, difficulty breathing, chills and shakes, patient at that time left AGAINST MEDICAL ADVICE. On 01/01/2019 18 came back for reevaluation with worsening dyspnea, cough, congestion, she states she just couldn't breathe, she is experiencing some chest tightness, she states she is bringing up some foul smelling and foul tasting green colored phlegm. Denied any chest pain, reports some subjective chills, she reports some swelling in her lower extremities, there is significant bruising to her left foot, and patient denies any recent trauma to it. He was found to be in A. fib RVR, she was placed on Cardizem drip, and she has currently converted to sinus rhythm, he was started on IV steroids, empiric antibiotics in the form of Levaquin, breathing treatments, she is on 5 L of O2, she states she at times feel like she is going to , and not leave the hospital. No fever, hemodynamically stable, lung sounds reveal diminished breath sounds with diffuse wheezes, patient does not appear to be in any acute distress. Chest x-ray was reviewed showing a mild persistent plate atelectasis at the left lung base. The patient is seen again today 01/12/2019 in follow-up on the selective care unit. She is currently sitting up in a chair at the bedside. Awake and alert in no acute distress. She is currently maintaining O2 saturations in the low 90s on 3 L/m per nasal cannula. She's been afebrile. Slightly tachycardic. Still dyspneic with minimal exertion conversation. Blood and sputum culture reveals no growth. She is continued on DuoNeb inhalations, Pulmicort and Perforomist inhalations, IV Solu-Medrol. She is on oral diuretics. Anticoagulated with Xarelto. The patient is seen again today 01/13/2019 in follow-up on the selective care unit. She is currently sitting up in a chair at the bedside. Awake and alert in no acute distress. Maintaining good O2 saturations in the 90s on 3 L/m per nasal cannula. She feels a bit stronger today compared to yesterday. Just a bit less short of breath. Blood cultures reveal no growth. Sputum culture pending. Continued on DuoNeb inhalations, Pulmicort and Perforomist inhalations, prednisone. Antibiotics in the form of Vibramycin. She is on oral diuretics. NicoDerm patch in place. Anticoagulated with Xarelto. The patient is seen today 01/15/2019 in follow-up on the selective care unit. She is currently sitting up in the bedside. Awake and alert in no acute distress. She is feeling a bit stronger today as compared to yesterday. Her breathing is nearly back to her baseline. She is maintaining O2 saturations in the 90s on 3 L/m per nasal cannula. Sputum was positive for pseudomonas aeruginosa felt to be a colonizer. Objective - Vital Signs Vital signs: Vital Signs Temp 98.6 F 01/15/19 08:30 Pulse 92 01/15/19 15:34 Resp 18 01/15/19 11:45 BP 95/52 01/15/19 11:45 Pulse Ox 93 L 01/15/19 15:10 Intake & Output 01/14/19 01/15/19 01/15/19 18:59 06:59 18:59 Intake Total 630 140 Output Total 1500 Balance -870 140 Weight 73.5 kg Intake: IV 30 20 Invasive Line 4 30 20 Oral 600 120 Output: Urine 1500 Other: Voiding Method Indwelling Catheter Indwelling Catheter Indwelling Catheter # Bowel Movements 0 - Exam GENERAL EXAM: Alert, 63-year-old female patient, on 3 L nasal cannula, comfortable. HEAD: Normocephalic/atraumatic. EYES: Normal reaction of pupils, equal size. Conjunctiva pink, sclera white. NOSE: Clear with pink turbinates. THROAT: No erythema or exudates. NECK: No masses, no JVD, no thyroid enlargement, no adenopathy. CHEST: No chest wall deformity. Symmetrical expansion. LUNGS: Equal air entry with end expiratory wheezing CVS: Regular rate and rhythm, normal S1 and S2, no gallops, no murmurs, no rubs ABDOMEN: Soft, nontender. No hepatosplenomegaly, normal bowel sounds, no guarding or rigidity. EXTREMITIES: No clubbing, trace lower extremity edema left greater than the right, no cyanosis, 2+ pulses and upper and lower extremities. There are ex tensive bruises involving the left foot, left lower leg, and to a lesser degree right lower leg, toes on the left foot, and patient denies any recent trauma, he is on chronic anticoagulation MUSCULOSKELETAL: Muscle strength and tone normal. SPINE: No scoliosis or deformity SKIN: No rashes CENTRAL NERVOUS SYSTEM: No focal deficits, tone is normal in all 4 extremities. PSYCHIATRIC: Alert and oriented -3. Appropriate affect. Intact judgment and insight. - Labs CBC & Chem 7: 01/11/19 05:38 01/11/19 05:38 Labs: Abnormal Lab Results - Last 24 Hours (Table) 01/14/19 01/14/19 01/15/19 Range/Units 16:57 20:43 06:06 POC Glucose (mg/dL) 316 H 231 H 143 H (75-99) mg/dL 01/15/19 Range/Units 11:23 POC Glucose (mg/dL) 203 H (75-99) mg/dL Microbiology - Last 24 Hours (Table) 01/11/19 16:00 Gram Stain - Final Sputum Sputum Culture - Final Pseudomonas aeruginosa Assessment and Plan Assessment: Assessment: #1. Acute on chronic hypoxemic respiratory failure secondary to acute exacerbation of chronic obstructive pulmonary disease complicated by tracheobronchitis #2. Chronic hypercapnic respiratory failure related to advanced COPD #3. New-onset A. fib RVR, remains tachycardic. #4. History of pulmonary embolism on Xarelto #5. Recent hospitalization at [facility] for COPD exacerbation, patient was discharged home on accommodation of prednisone and doxycycline #6. Advanced COPD on home oxygen at 3 L, and maintenance dose prednisone #7. Former smoker #8. Hypothyroidism #9. Previous history of CVA #10. Hypertension #11. Hyperlipidemia #12. Anxiety #13. Chronic left leg swelling, and there is bruising involving the left foot, denies any recent trauma #14. Degenerative disc disease #15. Valvular heart disease, severe mitral regurgitation, and moderate pulmona ry hypertension with PA systolic of 57 mmHg is seen on the echocardiogram from May 2018 Plan: The patient was seen and evaluated by Dr. Simpson. The plan is for transfer to an extended care facility for subacute rehabilitation. We'll continue her current pulmonary medications. I, the cosigning physician, performed a history & physical examination of the patient. Lungs sounds with bilateral end expiratory wheeze, diminished. Maintaining good O2 saturations in the 90s on 3 L/m per nasal cannula. I discussed the assessment and plan of care with my nurse practitioner, Cynthia Ken. I attest to the above note as dictated by her.
[2019-01-15 16:50] LABS: Glucose,Whole Blood 331 mg/dL (75-99)
== END 2019-01-15 17:19 | DRG 189 ==
LOC: EC 20:53 → 3SCARD 23:53 → 3NMEDONC 01-05 10:36 → 2SICU 01-06 11:14 → 3SCARD 01-09 16:32
PROVIDERS: ADMIT Hospitalist; ATTEND Hospitalist
PROC: 5A09357 Assistance with Respiratory Ventilation, Less than 24 Consecutive Hours, Continuous Positive Airway Pressure (ICD-10-PCS; principal; 2019-01-01)
PROC: 05HD33Z Insertion of Infusion Device into Right Cephalic Vein, Percutaneous Approach (ICD-10-PCS; 2019-01-09 12:45)
DX: J96.21 Acute and chronic respiratory failure with hypoxia (principal); J44.0 Chronic obstructive pulmonary disease with (acute) lower respiratory infection; J44.1 Chronic obstructive pulmonary disease with (acute) exacerbation; B37.0 Candidal stomatitis; B37.89 Other sites of candidiasis; I25.110 Atherosclerotic heart disease of native coronary artery with unstable angina pectoris; I47.1 Supraventricular tachycardia; I48.19 Other persistent atrial fibrillation; I48.4 Atypical atrial flutter; J98.11 Atelectasis; J96.22 Acute and chronic respiratory failure with hypercapnia; Z66 Do not resuscitate; J20.9 Acute bronchitis, unspecified; E03.9 Hypothyroidism, unspecified; E78.5 Hyperlipidemia, unspecified; E87.8 Other disorders of electrolyte and fluid balance, not elsewhere classified; F17.210 Nicotine dependence, cigarettes, uncomplicated; F41.8 Other specified anxiety disorders; G31.84 Mild cognitive impairment of uncertain or unknown etiology; I08.1 Rheumatic disorders of both mitral and tricuspid valves; I10 Essential (primary) hypertension; I27.20 Pulmonary hypertension, unspecified; Z86.73 Personal history of transient ischemic attack (TIA), and cerebral infarction without residual deficits; M19.90 Unspecified osteoarthritis, unspecified site; M48.00 Spinal stenosis, site unspecified; Z79.01 Long term (current) use of anticoagulants; Z79.890 Hormone replacement therapy; Z79.899 Other long term (current) drug therapy; Z86.711 Personal history of pulmonary embolism; Z99.81 Dependence on supplemental oxygen; R26.9 Unspecified abnormalities of gait and mobility; Z98.42 Cataract extraction status, left eye; Z98.41 Cataract extraction status, right eye; R73.9 Hyperglycemia, unspecified; T38.0X5A Adverse effect of glucocorticoids and synthetic analogues, initial encounter; R60.0 Localized edema; Z79.51 Long term (current) use of inhaled steroids
CPT/HCPCS: 36410; 36415; 36600; 71045; 76937; 80048; 80053; 80061; 80162; 82805; 83605; 83735; 83880; 84132; 84443; 84484; 85025; 85027; 85379; 85610; 85730; 87040; 87070; 87077; 87186; 87205; 90935; 93005; 93306; 94640; 94660; 94667; 94668; 94760; 94762; 96365; 96366; 96368; 96374; 96375; 96376; 99291

== ENCOUNTER 2019-01-16 22:38 | Inpatient (IN) | payer BC ==
[2019-01-16] MEDS ORDERED: LEVOFLOXACIN 750MG-D5W PMX 750 MG in DEXTROSE/WATER 1 150ML.BAG IVPB STA (23:37)
[2019-01-16] MEDS: SODIUM CHLORIDE 0.9% 500 ML 500 ML IV SCH (23:44)
--- NOTE | 2019-01-16 23:51 | XR ---
EXAMINATION TYPE: XR chest 1V portable DATE OF EXAM: 01/16/2019 COMPARISON: NONE HISTORY: Fever TECHNIQUE: Single frontal view of the chest is obtained. FINDINGS: There is some atelectasis at the lung bases. There is no heart failure. There are no hilar masses. Thoracic aorta is atheromatous. There are chest leads. IMPRESSION: Patchy lower lobe atelectasis increased compared to last exam. No heart failure seen.
[2019-01-16 23:53] LABS: Anisocytosis Slight; Basophils # (A) 0.2 k/uL (0-0.2); Basophils % (A) 2 %; Eosinophils # (A) 0.1 k/uL (0-0.7); Eosinophils % (A) 0 %; HCT 29.3 % (34.0-46.0); HGB 9.3 gm/dL (11.4-16.0); Hypochromasia Slight; Lymphocytes # (A) 1.3 k/uL (1.0-4.8); Lymphocytes % (A) 9 %; MCH 27.6 pg (25.0-35.0); MCHC 31.9 g/dL (31.0-37.0); MCV 86.4 fL (80.0-100.0); Mean Platelet Volume 7.3; Monocytes # (A) 0.6 k/uL (0-1.0); Monocytes % (A) 4 %; Neutrophils # (A) 11.6 k/uL (1.3-7.7); Neutrophils % (A) 83 %; Platelet Count 192 k/uL (150-450); RBC 3.39 m/uL (3.80-5.40); RDW 17.6 % (11.5-15.5); WBC 13.9 k/uL (3.8-10.6)
[2019-01-17 00:05] LABS: INR 1.2 (<1.2); Partial Thromboplastin Time 24.1 sec (22.0-30.0); Prothrombin Time 12.7 sec (9.0-12.0)
[2019-01-17 00:07] LABS: ALT 447 U/L (9-52); AST 87 U/L (14-36); African American GFR (CKD) >90 (>60 ml/min/1.73 sqM); Albumin 2.4 g/dL (3.5-5.0); Alkaline Phosphatase 76 U/L (38-126); Blood Urea Nitrogen 19 mg/dL (7-17); Calcium 7.8 mg/dL (8.4-10.2); Chloride 86 mmol/L (98-107); Digoxin 0.8 ng/mL; Glucose 148 mg/dL (74-99); Potassium 3.4 mmol/L (3.5-5.1); Sodium 131 mmol/L (137-145); Total Bilirubin 0.5 mg/dL (0.2-1.3); Total Protein 4.5 g/dL (6.3-8.2)
[2019-01-17 00:11] LABS: Anion Gap 4 mmol/L
[2019-01-17 00:14] LABS: Carbon Dioxide 41 mmol/L (22-30)
[2019-01-17 00:56] LABS: Appearance,Urine Cloudy (Clear); Bilirubin,Urine Negative (Negative); Blood,Urine Negative (Negative); Color,Urine Yellow; Glucose,Urine (UA) 2+ (Negative); Hyaline Casts,Urine 34 /lpf (0-2); Ketones,Urine Negative (Negative); Leukocyte Esterase,Urine Small (Negative); Mucus,Urine Rare /hpf; Nitrite,Urine Negative (Negative); Protein,Urine Trace (Negative); RBC,Urine 1 /hpf (0-5); Specific Gravity,Urine 1.016 (1.001-1.035); Squamous Epithelial Cell,Urine 1 /hpf (0-4); WBC,Urine 11 /hpf (0-5)
[2019-01-17] MEDS ORDERED: ACETAMINOPHEN TAB 325 MG TAB PO PRN (02:20)
[2019-01-17] MEDS ORDERED: NALOXONE 0.4 MG/ML 1 ML VIAL IV PRN (02:20)
--- NOTE | 2019-01-17 02:23 | ED ---
General Adult HPI - General Chief complaint: Recheck/Abnormal Lab/Rx Stated complaint: Hypotension Time Seen by Provider: 01/16/19 23:04 Source: EMS Mode of arrival: EMS Limitations: altered mental status (Acute delirium versus dementia.) - History of Present Illness Initial comments: 's patient is 63-year-old woman with history of COPD, atrial fibrillation, sent from shelter, after staff found her appearing diaphoretic, measured blood pressure approximate 74/30. On arrival, patient not able to give much history due to what appears to be acute delirium. She does complain of pain to her buttocks and back side from the position that she is sitting in. Patient is denying chest pain, headache, neck pain. -: hour(s) Location: buttocks Radiation: non-radiation Quality: aching Consistency: constant Improves with: none Worsens with: none Associated Symptoms: shortness of breath, weakness - Related Data Home Medications Medication Instructions Recorded Confirmed Simvastatin [Zocor] 20 mg PO DAILY@1700 06/06/14 01/16/19 DULoxetine HCL [Cymbalta] 60 mg PO DAILY 07/22/17 01/16/19 Levothyroxine Sodium [Synthroid] 50 mcg PO DAILY@0600 07/22/17 01/16/19 Rivaroxaban [Xarelto] 20 mg PO DAILY@1700 07/22/17 01/16/19 Albuterol Inhaler [Ventolin Hfa 2 puff INHALATION RT-Q6H PRN 06/01/18 01/16/19 Inhaler] Furosemide [Lasix] 40 mg PO DAILY@0800 06/01/18 01/16/19 Ipratropium-Albuterol Nebulize 3 ml INHALATION RT-QID PRN 06/01/18 01/16/19 [Duoneb 0.5 mg-3 mg/3 ml Soln] Montelukast [Singulair] 10 mg PO DAILY@0800 12/30/18 01/16/19 Nystatin 100,000Unit/gm Cream 1 applic TOPICAL BID 12/30/18 01/16/19 [Mycostatin Cream] Polyethylene Glycol 3350 [Miralax] 17 gm PO DAILY@0800 12/30/18 01/16/19 Spironolactone [Aldactone] 25 mg PO DAILY@0800 12/30/18 01/16/19 Tamsulosin [Flomax] 0.4 mg PO DAILY@0800 12/30/18 01/16/19 Aspirin 81 mg PO DAILY@1700 01/16/19 01/16/19 Bisacodyl [Dulcolax] 10 mg RECTAL DAILY PRN 01/16/19 01/16/19 Budesonide-Formot 160-4.5 Mcg 2 puff INHALATION RT-BID 01/16/19 01/16/19 [Symbicort 160-4.5 Mcg Inhaler] Digoxin [Lanoxin] 125 mcg PO DAILY@0600 01/16/19 01/16/19 Diltiazem Cd [Cardizem CD] 240 mg PO DAILY@0800 01/16/19 01/16/19 Fluconazole [Diflucan] 100 mg PO DAILY@0800 01/16/19 01/16/19 Lisinopril [Zestril] 10 mg PO DAILY@0800 01/16/19 01/16/19 Magnesium Hydroxide [Milk of 2,400 mg PO DAILY PRN 01/16/19 01/16/19 Magnesia] Metoprolol Tartrate [Lopressor] 25 mg PO BID@0800,1700 01/16/19 01/16/19 Na Phos,M-B/Na Phos,Di-Ba [Fleet 133 ml RECTAL DAILY PRN 01/16/19 01/16/19 Adult] Nicotine 14Mg/24Hr Patch [Habitrol] 1 patch TRANSDERM DAILY@0800 01/16/19 01/16/19 Pregabalin [Lyrica] 150 mg PO BID@0800,2100 01/16/19 01/16/19 clonazePAM [KlonoPIN] 0.5 mg PO BID@0800,2100 01/16/19 01/16/19 predniSONE See Taper PO DAILY 01/16/19 01/16/19 Previous Rx's Medication Instructions Recorded Morphine Sulfate ER [Ms Contin] 60 mg PO Q8H #9 tab 01/15/19 Nitroglycerin Sl Tabs [Nitrostat] 0.4 mg SUBLINGUAL Q5M PRN tab 01/15/19 oxyCODONE-APAP 10-325MG [Percocet 1 tab PO BID PRN #6 tab 01/15/19 10-325 mg] Allergies Allergy/AdvReac Type Severity Reaction Status Date / Time amoxicillin trihydrate Allergy Rash/Hives Verified 01/16/19 23:07 [From Augmentin] cefaclor [From Ceclor] Allergy Rash/Hives Verified 01/16/19 23:07 Iodinated Contrast Media Allergy Throat Verified 01/16/19 23:07 [Iodinated Contrast Media - Swelling IV Dye] Penicillins Allergy Rash/Hives Verified 01/16/19 23:07 potassium clavulanate Allergy Rash/Hives Verified 01/16/19 23:07 [From Augmentin] Review of Systems ROS Statement: Those systems with pertinent positive or pertinent negative responses have been documented in the HPI. ROS Other: All systems not noted in ROS Statement are negative. Limitations: ROS unobtainable due to patients medical condition Constitutional: Reports: weakness Respiratory: Reports: cough, dyspnea Cardiovascular: Denies: chest pain Gastrointestinal: Denies: abdominal pain Musculoskeletal: Reports: as per HPI, back pain Neurological: Denies: headache Past Medical History Past Medical History: COPD, CVA/TIA, Hyperlipidemia, Hypertension, Memory Impairment, Pulmonary Embolus (PE), Thyroid Disorder Additional Past Medical History / Comment(s): CVA WITH LEFT SIDED EYE DROOP, NUMBNESS ALAN FINGERS, LEFT LEG SWELLING, DDD, SPINAL STENOSIS, severe mitral and moderate tricuspid valve regurgitation; memory impairment (short term per ) History of Any Multi-Drug Resistant Organisms: None Reported Past Surgical History: Back Surgery Additional Past Surgical History / Comment(s): d&c's, ALAN CATARACT SX Past Anesthesia/Blood Transfusion Reactions: No Reported Reaction Additional Past Anesthesia/Blood Transfusion Reaction / Comment(s): "anesthesia took more than usual, I didn't go under" Past Psychological History: Anxiety Smoking Status: Former smoker Past Alcohol Use History: None Reported Past Drug Use History: None Reported - Past Family History Sister(s) Family Medical History: Cancer Additional Family Medical History / Comment(s): breast General Exam Limitations: no limitations General appearance: alert, in distress Head exam: Present: atraumatic, normocephalic Eye exam: Present: normal appearance, PERRL, EOMI. Absent: scleral icterus, conjunctival injection ENT exam: Present: mucous membranes dry Neck exam: Present: full ROM. Absent: tenderness, meningismus Respiratory exam: Present: wheezes, rhonchi. Absent: respiratory distress, rales, stridor, chest wall tenderness, accessory muscle use, decreased breath sounds Cardiovascular Exam: Present: regular rate, normal rhythm, normal heart sounds. Absent: systolic murmur, diastolic murmur, rubs, gallop GI/Abdominal exam: Present: soft. Absent: distended, tenderness, guarding, rebound, mass Extremities exam: Present: normal inspection, normal capillary refill. Absent: pedal edema, calf tenderness Back exam: Present: normal inspection Neurological exam: Present: alert Skin exam: Present: warm, dry, intact, normal color. Absent: rash Course Vital Signs 01/16/19 01/16/19 01/16/19 22:46 23:01 23:16 Temperature 98.5 F 98.6 F 98.5 F Pulse Rate 52 L 60 62 Respiratory 18 18 18 Rate Blood Pressure 96/51 105/51 120/65 O2 Sat by Pulse 90 L 96 95 Oximetry 01/16/19 01/16/19 01/17/19 23:31 23:46 00:55 Temperature 98.6 F 97.9 F 98.4 F Pulse Rate 56 L 60 64 Respiratory 17 18 18 Rate Blood Pressure 124/103 108/75 120/83 O2 Sat by Pulse 96 96 96 Oximetry EKG Findings - EKG Comments: EKG Findings:: There is a short IA interval. - EKG Results: EKG: interpreted by PAOLA, sinus rhythm (Rate is proximal 62 bpm), normal axis, normal QRS - Blocks, [place], Hypertrophy, ST Abn: Repolarization changes or abnormalities: ST or T wave suggestive of ischemia Medical Decision Making - Medical Decision Making Patient is 63-year-old woman sent from shelter to be evaluate for hypotension and diaphoresis. She does appear to be moderately dehydrated. The lab workup does reveal mild lactic acidosis. Patient also is retaining CO2. Patient will be admitted to have further IV fluid and to have further nebulized treatments. Cultures are pending and the patient has received dose of IV antibiotics. - Lab Data Result diagrams: 01/16/19 22:53 01/16/19 22:53 Lab Results 01/16/19 01/16/19 01/16/19 Range/Units 22:53 22:53 22:53 WBC 13.9 H (3.8-10.6) k/uL RBC 3.39 L (3.80-5.40) m/uL Hgb 9.3 L (11.4-16.0) gm/dL Hct 29.3 L (34.0-46.0) % MCV 86.4 (80.0-100.0) fL MCH 27.6 (25.0-35.0) pg MCHC 31.9 (31.0-37.0) g/dL RDW 17.6 H (11.5-15.5) % Plt Count 192 (150-450) k/uL Neutrophils % 83 % Lymphocytes % 9 % Monocytes % 4 % Eosinophils % 0 % Basophils % 2 % Neutrophils # 11.6 H (1.3-7.7) k/uL Lymphocytes # 1.3 (1.0-4.8) k/uL Monocytes # 0.6 (0-1.0) k/uL Eosinophils # 0.1 (0-0.7) k/uL Basophils # 0.2 (0-0.2) k/uL Hypochromasia Slight Anisocytosis Slight PT (9.0-12.0) sec INR (<1.2) APTT (22.0-30.0) sec Sodium 131 L (137-145) mmol/L Potassium 3.4 L (3.5-5.1) mmol/L Chloride 86 L (98-107) mmol/L Carbon Dioxide 41 H* (22-30) mmol/L Anion Gap 4 mmol/L BUN 19 H (7-17) mg/dL Creatinine 0.80 (0.52-1.04) mg/dL Est GFR (CKD-EPI)AfAm >90 (>60 ml/min/1.73 sqM) Est GFR (CKD-EPI)NonAf 80 (>60 ml/min/1.73 sqM) Glucose 148 H (74-99) mg/dL Lactic Ac Sepsis Rflx Plasma Lactic Acid Shailesh 2.3 H* (0.7-2.0) mmol/L Calcium 7.8 L (8.4-10.2) mg/dL Total Bilirubin 0.5 (0.2-1.3) mg/dL AST 87 H (14-36) U/L ALT 447 H (9-52) U/L Alkaline Phosphatase 76 (38-126) U/L Troponin I (0.000-0.034) ng/mL Total Protein 4.5 L (6.3-8.2) g/dL Albumin 2.4 L (3.5-5.0) g/dL Urine Color Urine Appearance (Clear) Urine pH (5.0-8.0) Ur Specific Jackson (1.001-1.035) Urine Protein (Negative) Urine Glucose (UA) (Negative) Urine Ketones (Negative) Urine Blood (Negative) Urine Nitrite (Negative) Urine Bilirubin (Negative) Urine Urobilinogen (<2.0) mg/dL Ur Leukocyte Esterase (Negative) Urine RBC (0-5) /hpf Urine WBC (0-5) /hpf Ur Squamous Epith Cells (0-4) /hpf Hyaline Casts (0-2) /lpf Urine Mucus (None) /hpf Digoxin 0.8 ng/mL 01/16/19 01/16/19 01/17/19 Range/Units 22:53 22:53 00:09 WBC (3.8-10.6) k/uL RBC (3.80-5.40) m/uL Hgb (11.4-16.0) gm/dL Hct (34.0-46.0) % MCV (80.0-100.0) fL MCH (25.0-35.0) pg MCHC (31.0-37.0) g/dL RDW (11.5-15.5) % Plt Count (150-450) k/uL Neutrophils % % Lymphocytes % % Monocytes % % Eosinophils % % Basophils % % Neutrophils # (1.3-7.7) k/uL Lymphocytes # (1.0-4.8) k/uL Monocytes # (0-1.0) k/uL Eosinophils # (0-0.7) k/uL Basophils # (0-0.2) k/uL Hypochromasia Anisocytosis PT 12.7 H (9.0-12.0) sec INR 1.2 H (<1.2) APTT 24.1 (22.0-30.0) sec Sodium (137-145) mmol/L Potassium (3.5-5.1) mmol/L Chloride (98-107) mmol/L Carbon Dioxide (22-30) mmol/L Anion Gap mmol/L BUN (7-17) mg/dL Creatinine (0.52-1.04) mg/dL Est GFR (CKD-EPI)AfAm (>60 ml/min/1.73 sqM) Est GFR (CKD-EPI)NonAf (>60 ml/min/1.73 sqM) Glucose (74-99) mg/dL Lactic Ac Sepsis Rflx Y Plasma Lactic Acid Shailesh (0.7-2.0) mmol/L Calcium (8.4-10.2) mg/dL Total Bilirubin (0.2-1.3) mg/dL AST (14-36) U/L ALT (9-52) U/L Alkaline Phosphatase (38-126) U/L Troponin I 0.023 (0.000-0.034) ng/mL Total Protein (6.3-8.2) g/dL Albumin (3.5-5.0) g/dL Urine Color Urine Appearance (Clear) Urine pH (5.0-8.0) Ur Specific Jackson (1.001-1.035) Urine Protein (Negative) Urine Glucose (UA) (Negative) Urine Ketones (Negative) Urine Blood (Negative) Urine Nitrite (Negative) Urine Bilirubin (Negative) Urine Urobilinogen (<2.0) mg/dL Ur Leukocyte Esterase (Negative) Urine RBC (0-5) /hpf Urine WBC (0-5) /hpf Ur Squamous Epith Cells (0-4) /hpf Hyaline Casts (0-2) /lpf Urine Mucus (None) /hpf Digoxin ng/mL 01/17/19 Range/Units 00:25 WBC (3.8-10.6) k/uL RBC (3.80-5.40) m/uL Hgb (11.4-16.0) gm/dL Hct (34.0-46.0) % MCV (80.0-100.0) fL MCH (25.0-35.0) pg MCHC (31.0-37.0) g/dL RDW (11.5-15.5) % Plt Count (150-450) k/uL Neutrophils % % Lymphocytes % % Monocytes % % Eosinophils % % Basophils % % Neutrophils # (1.3-7.7) k/uL Lymphocytes # (1.0-4.8) k/uL Monocytes # (0-1.0) k/uL Eosinophils # (0-0.7) k/uL Basophils # (0-0.2) k/uL Hypochromasia Anisocytosis PT (9.0-12.0) sec INR (<1.2) APTT (22.0-30.0) sec Sodium (137-145) mmol/L Potassium (3.5-5.1) mmol/L Chloride (98-107) mmol/L Carbon Dioxide (22-30) mmol/L Anion Gap mmol/L BUN (7-17) mg/dL Creatinine (0.52-1.04) mg/dL Est GFR (CKD-EPI)AfAm (>60 ml/min/1.73 sqM) Est GFR (CKD-EPI)NonAf (>60 ml/min/1.73 sqM) Glucose (74-99) mg/dL Lactic Ac Sepsis Rflx Plasma Lactic Acid Shailesh (0.7-2.0) mmol/L Calcium (8.4-10.2) mg/dL Total Bilirubin (0.2-1.3) mg/dL AST (14-36) U/L ALT (9-52) U/L Alkaline Phosphatase (38-126) U/L Troponin I (0.000-0.034) ng/mL Total Protein (6.3-8.2) g/dL Albumin (3.5-5.0) g/dL Urine Color Yellow Urine Appearance Cloudy H (Clear) Urine pH 6.0 (5.0-8.0) Ur Specific Jackson 1.016 (1.001-1.035) Urine Protein Trace H (Negative) Urine Glucose (UA) 2+ H (Negative) Urine Ketones Negative (Negative) Urine Blood Negative (Negative) Urine Nitrite Negative (Negative) Urine Bilirubin Negative (Negative) Urine Urobilinogen 2.0 (<2.0) mg/dL Ur Leukocyte Esterase Small H (Negative) Urine RBC 1 (0-5) /hpf Urine WBC 11 H (0-5) /hpf Ur Squamous Epith Cells 1 (0-4) /hpf Hyaline Casts 34 H (0-2) /lpf Urine Mucus Rare H (None) /hpf Digoxin ng/mL Disposition Clinical Impression: Hypotension, Dehydration, Lactic acidosis, Transaminitis Disposition: ADMITTED IP TO THIS [facility] Condition: Fair
[2019-01-17] MEDS: SODIUM CHLORIDE 0.9% 500 ML 500 ML IV SCH (02:33)
[2019-01-17] MEDS: SODIUM CHLORIDE 0.9% 1,000 ML IV SCH ×3 (02:34→21:35)
[2019-01-17 02:40] LABS: ABG Base Excess 17.3 mmol/L; ABG Oxygen Saturation 87.8 % (94-97); ABG PCO2 59 mmHg (35-45); ABG PH 7.45 (7.35-7.45); ABG TCO2 43 mmol/L (19-24); Allen Test Performed? Yes
[2019-01-17 02:51] LABS: ABG PO2 53 mmHg (83-108)
[2019-01-17 02:52] LABS: ABG HCO3 41 mmol/L (21-25)
[2019-01-17] MEDS: IPRATROPIUM-ALBUTEROL 3 ML NEB INHALATION PRN ×5 (04:12→22:02)
[2019-01-17] MEDS ORDERED: NA PHOS,M-B/NA PHOS,DI-BA 133 ML ENEMA RECTAL PRN (08:12)
[2019-01-17] MEDS ORDERED: NITROGLYCERIN SL TABS 0.4 MG TAB SUBLINGUAL PRN (08:12)
[2019-01-17] MEDS ORDERED: BISACODYL 10 MG SUPP RECTAL PRN (08:12)
[2019-01-17] MEDS ORDERED: MAGNESIUM HYDROXIDE 2,400 MG/10 ML CUP PO PRN (08:12)
[2019-01-17] MEDS: predniSONE 10 MG TAB PO SCH (08:52)
[2019-01-17] MEDS: DULoxetine HCL 60 MG CAPSULE.DR PO SCH (08:52)
[2019-01-17] MEDS: oxyCODONE-APAP 10-325MG 1 EACH TAB PO PRN ×2 (08:52→21:34)
[2019-01-17] MEDS: NYSTATIN 100,000UNIT/GM CREAM 30 GM TUBE TOPICAL SCH ×2 (08:52→21:35)
[2019-01-17] MEDS: MORPHINE SULFATE ER 60 MG TABLET PO SCH ×2 (08:54→14:33)
[2019-01-17] MEDS: clonazePAM 0.5 MG TAB PO SCH ×2 (08:58→21:34)
[2019-01-17] MEDS ORDERED: IPRATROPIUM-ALBUTEROL 3 ML NEB INHALATION PRN (10:27)
[2019-01-17] MEDS: SYMBICORT 160-4.5 MCG INHALER INHALATION SCH ×2 (10:56→19:09)
[2019-01-17] MEDS ORDERED: RIVAROXABAN 20 MG TAB PO SCH (17:00)
[2019-01-17] MEDS ORDERED: ASPIRIN 81 MG PO SCH (17:00)
[2019-01-17] MEDS ORDERED: ATORVASTATIN 10 MG TAB PO SCH (17:00)
[2019-01-17] MEDS: METOPROLOL TARTRATE 25 MG TAB PO SCH (17:23)
--- NOTE | 2019-01-17 21:18 | P.HPIM ---
History of Present Illness H&P Date: 01/17/19 Chief Complaint: Low blood pressure History of present complaint: This is a pleasant 63-year-old patient of Dr. Trevor Hamilton. Patient's funder is Dr. Simpson. Chronic stable medical conditions include hypertension, hyperlipidemia, mild cognitive impairment, hypothyroid, spinal stenosis, osteoarthritis, severe mitral and moderate tricuspid valve regurgitation. Patient recently was admitted to [facility]. She is not sure of the diagnosis . When she was discharged she says she really didn't feel much better. She continued to get progressively short of breath and wheezing. She was admitted to [facility] from 01/01/2019 through 2018 Admitted with paroxysmal atrial fibrillation with rapid ventricular rate, now in sinus rhythm. Acute hypoxic and hypercapnic respiratory failure requiring BiPAP, acute COPD exacerbation, acute candidiasis and tracheobronchitis. Patient seen by multiple consultants. Was discharged 2 days ago. Was tolerating a diet. Heart rate was controlled. On nasal cannula. Cor status is DO NOT RESUSCITATE. Patient discharged to [facility] Patient now sent in for low blood pressures running low with a systolic blood pressure running in the 70s. Patient became a bit panicky. In the ER patient s tarted on IV fluids. This morning blood pressure medications were held. Patient is feeling much better. at the bedside. No chest pain no palpitation. Review of systems: GEN.: Tired EYES: None HEENT: None NECK: None RESPIRATORY: Some cough and no sputum CARDIOVASCULAR: None GASTROINTESTINAL: None GENITOURINARY: Henry catheter was placed MUSCULOSKELETAL: Pain in joints LYMPHATICS: None HEMATOLOGICAL: Generalized bruising from last admission PSYCHIATRY: But anxious NEUROLOGICAL: None Social history: [facility] smoked half a pack a day for over 45 years until recently.. Denies alcohol. Physical examination: VITAL SIGNS: 98.5, 52, 18, 86/51, 90% on 3 L GENERAL: BMI 29.1, sitting up on the bed, awake, tired. EYES: Pupils equal. Conjunctiva pale HEENT: External appearance of nose and ears normal, oral cavity with white spots in the posterior part. NECK: JVD not raised; masses not palpable. HEART: Heart sounds regular no edema]. LUNGS: Respiratory rate increased, diminished breath sounds prolonged expiration ABDOMEN: Soft, nontender, liver spleen not palpable, no masses palpable. PSYCH: Alert and oriented x3; mood and affect anxious NEUROLOGICAL: Cranial nerves grossly intact; no facial asymmetry, power and sensation grossly intact. LYMPHATICS: No lymph nodes palpable in the axilla and neck DERMATOLOGICAL: Diffuse bruising from last admission INVESTIGATIONS, reviewed in the clinical context: White count 13.9 hemoglobin 9.3 sodium 131 bicarb 41 creatinine 0.8 plasma lactic acid 2.3 and repeat 0.6 AST 487 ALT 447 albumin 2.4 EKG tracing personally reviewed by me-sinus rhythm Assessment: -Hypotension from volume loss and decreased oral intake from diuretics -Paroxysmal atrial fibrillation currently in sinus rhythm -COPD exacerbation in a X smoker -Hyperlipidemia -Essential hypertension -Mild cognitive impairment -Hypothyroid -Chronic anxiety depression otherwise specified -Chronic gait dysfunction uses a cane and a walker Plan: Patient was given IV fluids. Lasix is being discontinued. So his [place] inhibitor. Care was discussed with the patient has been no bedside. Home medications resumed. We'll watch the patient for 24 hours. Overall prognosis guarded. Resume medications for heart rate this afternoon.. Smoke cessation counseling: This was done with the patient. Nicotine patch is being given. More than 3 minutes was spent for this Past Medical History Past Medical History: COPD, CVA/TIA, Hyperlipidemia, Hypertension, Memory Impairment, Pulmonary Embolus (PE), Thyroid Disorder Additional Past Medical History / Comment(s): CVA WITH LEFT SIDED EYE DROOP, NUMBNESS ALAN FINGERS, LEFT LEG SWELLING, DDD, SPINAL STENOSIS, severe mitral and moderate tricuspid valve regurgitation; memory impairment (short term per ) History of Any Multi-Drug Resistant Organisms: None Reported Past Surgical History: Back Surgery Additional Past Surgical History / Comment(s): d&c's, ALAN CATARACT SX Past Anesthesia/Blood Transfusion Reactions: No Reported Reaction Additional Past Anesthesia/Blood Transfusion Reaction / Comment(s): "anesthesia took more than usual, I didn't go under" Past Psychological History: Anxiety Smoking Status: Former smoker Past Alcohol Use History: None Reported Past Drug Use History: None Reported - Past Family History Sister(s) Family Medical History: Cancer Additional Family Medical History / Comment(s): breast Medications and Allergies Home Medications Medication Instructions Recorded Confirmed Type Simvastatin [Zocor] 20 mg PO DAILY@1700 06/06/14 01/16/19 History DULoxetine HCL [Cymbalta] 60 mg PO DAILY 07/22/17 01/16/19 History Levothyroxine Sodium [Synthroid] 50 mcg PO DAILY@0600 07/22/17 01/16/19 History Rivaroxaban [Xarelto] 20 mg PO DAILY@1700 07/22/17 01/16/19 History Albuterol Inhaler [Ventolin Hfa 2 puff INHALATION RT-Q6H PRN 06/01/18 01/16/19 History Inhaler] Furosemide [Lasix] 40 mg PO DAILY@0800 06/01/18 01/16/19 History Ipratropium-Albuterol Nebulize 3 ml INHALATION RT-QID PRN 06/01/18 01/16/19 History [Duoneb 0.5 mg-3 mg/3 ml Soln] Montelukast [Singulair] 10 mg PO DAILY@0800 12/30/18 01/16/19 History Nystatin 100,000Unit/gm Cream 1 applic TOPICAL BID 12/30/18 01/16/19 History [Mycostatin Cream] Polyethylene Glycol 3350 [Miralax] 17 gm PO DAILY@0800 12/30/18 01/16/19 History Spironolactone [Aldactone] 25 mg PO DAILY@0800 12/30/18 01/16/19 History Tamsulosin [Flomax] 0.4 mg PO DAILY@0800 12/30/18 01/16/19 History Morphine Sulfate ER [Ms Contin] 60 mg PO Q8H #9 tab 01/15/19 01/16/19 Rx Nitroglycerin Sl Tabs [Nitrostat] 0.4 mg SUBLINGUAL Q5M PRN tab 01/15/19 01/16/19 Rx oxyCODONE-APAP 10-325MG [Percocet 1 tab PO BID PRN #6 tab 01/15/19 01/16/19 Rx 10-325 mg] Aspirin 81 mg PO DAILY@1700 01/16/19 01/16/19 History Bisacodyl [Dulcolax] 10 mg RECTAL DAILY PRN 01/16/19 01/16/19 History Budesonide-Formot 160-4.5 Mcg 2 puff INHALATION RT-BID 01/16/19 01/16/19 History [Symbicort 160-4.5 Mcg Inhaler] Digoxin [Lanoxin] 125 mcg PO DAILY@0600 01/16/19 01/16/19 History Diltiazem Cd [Cardizem CD] 240 mg PO DAILY@0800 01/16/19 01/16/19 History Fluconazole [Diflucan] 100 mg PO DAILY@0800 01/16/19 01/16/19 History Lisinopril [Zestril] 10 mg PO DAILY@0800 01/16/19 01/16/19 History Magnesium Hydroxide [Milk of 2,400 mg PO DAILY PRN 01/16/19 01/16/19 History Magnesia] Metoprolol Tartrate [Lopressor] 25 mg PO BID@0800,1700 01/16/19 01/16/19 History Na Phos,M-B/Na Phos,Di-Ba [Fleet 133 ml RECTAL DAILY PRN 01/16/19 01/16/19 History Adult] Nicotine 14Mg/24Hr Patch [Habitrol] 1 patch TRANSDERM DAILY@0800 01/16/19 01/16/19 History Pregabalin [Lyrica] 150 mg PO BID@0800,2100 01/16/19 01/16/19 History clonazePAM [KlonoPIN] 0.5 mg PO BID@0800,2100 01/16/19 01/16/19 History predniSONE See Taper PO DAILY 01/16/19 01/16/19 History Allergies Allergy/AdvReac Type Severity Reaction Status Date / Time amoxicillin trihydrate Allergy Rash/Hives Verified 01/16/19 23:07 [From Augmentin] cefaclor [From Ceclor] Allergy Rash/Hives Verified 01/16/19 23:07 Iodinated Contrast Media Allergy Throat Verified 01/16/19 23:07 [Iodinated Contrast Media - Swelling IV Dye] Penicillins Allergy Rash/Hives Verified 01/16/19 23:07 potassium clavulanate Allergy Rash/Hives Verified 01/16/19 23:07 [From Augmentin] Physical Exam Vitals: Vital Signs Temp Pulse Pulse Resp BP BP Pulse Ox 01/17/19 07:42 84 01/17/19 07:30 80 01/17/19 04:20 88 01/17/19 04:17 98.2 F 66 18 96/57 92 L 01/17/19 04:12 90 01/17/19 00:55 98.4 F 64 18 120/83 96 01/16/19 23:46 97.9 F 60 18 108/75 96 01/16/19 23:31 98.6 F 56 L 17 124/103 96 01/16/19 23:16 98.5 F 62 18 120/65 95 01/16/19 23:01 98.6 F 60 18 105/51 96 01/16/19 22:46 98.5 F 52 L 18 96/51 90 L Intake and Output 01/16/19 01/17/19 01/17/19 22:59 06:59 14:59 Output Total 150 Balance -150 Output: Urine 150 Uretheral (Henry) 150 Other: Weight 72.121 kg Results CBC & Chem 7: 01/16/19 22:53 01/16/19 22:53 Labs: Abnormal Lab Results - Last 24 Hours (Table) 01/16/19 01/16/19 01/16/19 Range/Units 22:53 22:53 22:53 WBC 13.9 H (3.8-10.6) k/uL RBC 3.39 L (3.80-5.40) m/uL Hgb 9.3 L (11.4-16.0) gm/dL Hct 29.3 L (34.0-46.0) % RDW 17.6 H (11.5-15.5) % Neutrophils # 11.6 H (1.3-7.7) k/uL PT (9.0-12.0) sec INR (<1.2) ABG pCO2 (35-45) mmHg ABG pO2 (83-108) mmHg ABG HCO3 (21-25) mmol/L ABG Total CO2 (19-24) mmol/L ABG O2 Saturation (94-97) % Sodium 131 L (137-145) mmol/L Potassium 3.4 L (3.5-5.1) mmol/L Chloride 86 L (98-107) mmol/L Carbon Dioxide 41 H* (22-30) mmol/L BUN 19 H (7-17) mg/dL Glucose 148 H (74-99) mg/dL Plasma Lactic Acid Shailesh 2.3 H* (0.7-2.0) mmol/L Calcium 7.8 L (8.4-10.2) mg/dL AST 87 H (14-36) U/L ALT 447 H (9-52) U/L Total Protein 4.5 L (6.3-8.2) g/dL Albumin 2.4 L (3.5-5.0) g/dL Urine Appearance (Clear) Urine Protein (Negative) Urine Glucose (UA) (Negative) Ur Leukocyte Esterase (Negative) Urine WBC (0-5) /hpf Hyaline Casts (0-2) /lpf Urine Mucus (None) /hpf 01/16/19 01/17/19 01/17/19 Range/Units 22:53 00:25 02:27 WBC (3.8-10.6) k/uL RBC (3.80-5.40) m/uL Hgb (11.4-16.0) gm/dL Hct (34.0-46.0) % RDW (11.5-15.5) % Neutrophils # (1.3-7.7) k/uL PT 12.7 H (9.0-12.0) sec INR 1.2 H (<1.2) ABG pCO2 59 H (35-45) mmHg ABG pO2 53 L* (83-108) mmHg ABG HCO3 41 H* (21-25) mmol/L ABG Total CO2 43 H (19-24) mmol/L ABG O2 Saturation 87.8 L (94-97) % Sodium (137-145) mmol/L Potassium (3.5-5.1) mmol/L Chloride (98-107) mmol/L Carbon Dioxide (22-30) mmol/L BUN (7-17) mg/dL Glucose (74-99) mg/dL Plasma Lactic Acid Shailesh (0.7-2.0) mmol/L Calcium (8.4-10.2) mg/dL AST (14-36) U/L ALT (9-52) U/L Total Protein (6.3-8.2) g/dL Albumin (3.5-5.0) g/dL Urine Appearance Cloudy H (Clear) Urine Protein Trace H (Negative) Urine Glucose (UA) 2+ H (Negative) Ur Leukocyte Esterase Small H (Negative) Urine WBC 11 H (0-5) /hpf Hyaline Casts 34 H (0-2) /lpf Urine Mucus Rare H (None) /hpf 01/17/19 Range/Units 03:25 WBC (3.8-10.6) k/uL RBC (3.80-5.40) m/uL Hgb (11.4-16.0) gm/dL Hct (34.0-46.0) % RDW (11.5-15.5) % Neutrophils # (1.3-7.7) k/uL PT (9.0-12.0) sec INR (<1.2) ABG pCO2 (35-45) mmHg ABG pO2 (83-108) mmHg ABG HCO3 (21-25) mmol/L ABG Total CO2 (19-24) mmol/L ABG O2 Saturation (94-97) % Sodium (137-145) mmol/L Potassium (3.5-5.1) mmol/L Chloride (98-107) mmol/L Carbon Dioxide (22-30) mmol/L BUN (7-17) mg/dL Glucose (74-99) mg/dL Plasma Lactic Acid Shailesh 0.6 L (0.7-2.0) mmol/L Calcium (8.4-10.2) mg/dL AST (14-36) U/L ALT (9-52) U/L Total Protein (6.3-8.2) g/dL Albumin (3.5-5.0) g/dL Urine Appearance (Clear) Urine Protein (Negative) Urine Glucose (UA) (Negative) Ur Leukocyte Esterase (Negative) Urine WBC (0-5) /hpf Hyaline Casts (0-2) /lpf Urine Mucus (None) /hpf Thrombosis Risk Factor Assmnt - Choose All That Apply Any of the Below Risk Factors Present?: Yes Each Factor Represents 1 point: Obesity (BMI >25) Other Risk Factors: Yes Each Risk Factor Represents 2 Points: Age 61-74 years Each Risk Factor Represents 3 Points: History of DVT/PE Thrombosis Risk Factor Assessment Total Risk Factor Score: 6 Thrombosis Risk Factor Assessment Level: High Risk
[2019-01-17] MEDS: PREGABALIN 75 MG CAP PO SCH (21:34)
[2019-01-18] MEDS: MORPHINE SULFATE ER 60 MG TABLET PO SCH ×2 (04:28→07:41)
[2019-01-18] MEDS ORDERED: DIGOXIN 125 MCG TAB PO SCH (06:00)
[2019-01-18] MEDS ORDERED: LEVOTHYROXINE 50 MCG TAB PO SCH (06:00)
[2019-01-18] MEDS: IPRATROPIUM-ALBUTEROL 3 ML NEB INHALATION PRN ×2 (07:20→11:11)
[2019-01-18] MEDS: SYMBICORT 160-4.5 MCG INHALER INHALATION SCH (07:21)
[2019-01-18] MEDS: METOPROLOL TARTRATE 25 MG TAB PO SCH (07:37)
[2019-01-18] MEDS: clonazePAM 0.5 MG TAB PO SCH (07:37)
[2019-01-18] MEDS: predniSONE 10 MG TAB PO SCH (07:37)
[2019-01-18] MEDS: DULoxetine HCL 60 MG CAPSULE.DR PO SCH (07:37)
[2019-01-18] MEDS: PREGABALIN 75 MG CAP PO SCH (07:37)
[2019-01-18] MEDS: NYSTATIN 100,000UNIT/GM CREAM 30 GM TUBE TOPICAL SCH (07:39)
[2019-01-18] MEDS ORDERED: NICOTINE 14MG/24HR PATCH TRANSDERM SCH (08:00)
[2019-01-18] MEDS ORDERED: DILTIAZEM CD 240 MG CAP.ER.24H PO SCH (08:00)
[2019-01-18] MEDS ORDERED: LISINOPRIL 10 MG TAB PO SCH (08:00)
[2019-01-18] MEDS ORDERED: FUROSEMIDE 40 MG TAB PO SCH (08:00)
[2019-01-18] MEDS ORDERED: POLYETHYLENE GLYCOL 3350 17 GM POWD.PACK PO SCH (08:00)
[2019-01-18] MEDS ORDERED: FLUCONAZOLE 100 MG TAB PO SCH (08:00)
[2019-01-18] MEDS ORDERED: TAMSULOSIN 0.4 MG CAP.ER.24H PO SCH (08:00)
[2019-01-18] MEDS ORDERED: SPIRONOLACTONE 25 MG TAB PO SCH (08:00)
[2019-01-18] MEDS ORDERED: MONTELUKAST 10 MG TAB PO SCH (08:00)
[2019-01-18 09:01] VITALS: RESP 14
--- NOTE | 2019-01-18 10:55 | CDI ---
Documentation Clarification Form Date: 01/18/2019 10:38:53 AM From: Sherry Grullon RN CCDS Admit Date: 01/17/2019 11:46:00 AM Patient Name: Rosaura Ramos Visit Number: [id number] Discharge Date: ATTENTION: The Clinical Documentation Specialists (CDI) and [facility] Coding Staff appreciate your assistance in clarifying documentation. Please respond to the clarification below the line at the bottom and electronically sign. The CDI & [facility] Coding staff will review the response and follow-up if needed. Please note: Queries are made part of the Legal Health Record. If you have any questions, please contact the author of this message via ITS. Dr. Jose C Nuñez The patient is on 3 Liters nasal Cannula History/Risk Factors: 63-year-old female presents to the ED via EMS from [facility] for low blood pressure. Medical History COPD; Recent admission with AECOPD with Acute hypoxic and hypercapnic respiratory failure. Tobacco use: former smoker Clinical Indicators: Vital signs: / 52 98.5 18 90% 3L nasal cannula Lung assessment: H&P Respiratory rate increased, diminished breath sounds prolonged expiration ABG/CBG: pH 7.45 pO2 53 pCO2 59 Lactate 2.3 Treatment: Prednisone; Breathing tx 01/17 DuoNeb qid prn; Symbicort bid floresita; Singulair; 3L nasal cannula In your professional opinion, can you please clarify if these findings signify one of the following conditions? * Acute Respiratory Failure * Acute on Chronic Respiratory Failure * Chronic Respiratory Failure * Other Diagnosis, please specify * Unable to determine Specificity: If known, further specify (if known): With hypercapnia? (pCO2 >50 and pH <7.35) With hypoxia? (pO2 <60 mm Hg or SpO2 <91% on room air) (Last Query Form Revision: November 2018) Chronic hypoxic and hypercapnic respiratory failure secondary to COPD. No acute respiratory failure MTDD
--- NOTE | 2019-01-18 12:18 | P.DS ---
Providers Date of admission: 01/17/19 11:46 Expected date of discharge: 01/18/19 Attending physician: Jose C Nuñez Primary care physician: Trevor Hamilton MD Hospital Course: Chief Complaint: Low blood pressure Hospital course: This is a pleasant 63-year-old patient of Dr. Trevor Hamilton. Patient's pacu rn is Dr. Simpson. Chronic stable medical conditions include hypertension, hyperlipidemia, mild cognitive impairment, hypothyroid, spinal stenosis, osteoarthritis, severe mitral and moderate tricuspid valve regurgitation. Patient recently was admitted to [facility]. She is not sure of the diagnosis . When she was discharged she says she really didn't feel much better. She continued to get progressively short of breath and wheezing. She was admitted to [facility] from 01/01/2019 through 01/15/2019 Admitted with paroxysmal atrial fibrillation with rapid ventricular rate, now in sinus rhythm. Acute hypoxic and hypercapnic respiratory failure requiring BiPAP, acute COPD exacerbation, acute candidiasis and tracheobronchitis. Patient seen by multiple consultants. Was discharged 2 days ago. Was tolerating a diet. Heart rate was controlled. On nasal cannula. Cor status is DO NOT RESUSCITATE. Patient discharged to [facility] Patient now sent in for low blood pressures running low with a systolic blood pressure running in the 70s. Patient became a bit panicky. In the ER patient started on IV fluids. This morning blood pressure medications were held. Patient is feeling much better. No evidence of infection. Patient's Lasix has been discontinued. Also [place] inhibitor was discontinued. Blood pressures,. Patient doing much better. Up awake. Patient is often sleepy at times. Dose of MS Contin is been decreased to every 12 hours from every 8. Physical examination: VITAL SIGNS: 98.7, 102, 14, 11 2/73, 91% on 3.5 L GENERAL: BMI 29.1, sitting up on the bed, awake, EYES: Pupils equal. Conjunctiva pale HEENT: External appearance of nose and ears normal, oral cavity normal. NECK: JVD not raised; masses not palpable. HEART: Heart sounds regular no edema]. LUNGS: Respiratory rate increased, diminished breath sounds prolonged expiration ABDOMEN: Soft, nontender, liver spleen not palpable, no masses palpable. PSYCH: Alert and oriented x3; mood and affect less anxious DERMATOLOGICAL: Diffuse bruising from last admission INVESTIGATIONS, reviewed in the clinical context: White count 13.9 hemoglobin 9.3 sodium 131 bicarb 41 creatinine 0.8 plasma lactic acid 2.3 and repeat 0.6 AST 487 ALT 447 albumin 2.4 EKG tracing personally reviewed by me-sinus rhythm Assessment: -Hypotension from volume loss and decreased oral intake from diuretics, improved -Paroxysmal atrial fibrillation currently in sinus rhythm -COPD in a X smoker -Hyperlipidemia -Essential hypertension -Mild cognitive impairment -Hypothyroid -Chronic anxiety depression otherwise specified -Chronic gait dysfunction uses a cane and a walker Disposition: ECF/[place] Patient Condition at Discharge: Stable Plan - Discharge Summary New Discharge Prescriptions: No Action Simvastatin [Zocor] 20 mg PO DAILY@1700 Rivaroxaban [Xarelto] 20 mg PO DAILY@1700 Levothyroxine Sodium [Synthroid] 50 mcg PO DAILY@0600 DULoxetine HCL [Cymbalta] 60 mg PO DAILY Albuterol Inhaler [Ventolin Hfa Inhaler] 2 puff INHALATION RT-Q6H PRN PRN Reason: Shortness Of Breath Ipratropium-Albuterol Nebulize [Duoneb 0.5 mg-3 mg/3 ml Soln] 3 ml INHALATION RT-QID PRN PRN Reason: Shortness Of Breath Furosemide [Lasix] 40 mg PO DAILY@0800 Nystatin 100,000Unit/gm Cream [Mycostatin Cream] 1 applic TOPICAL BID Montelukast [Singulair] 10 mg PO DAILY@0800 Tamsulosin [Flomax] 0.4 mg PO DAILY@0800 Polyethylene Glycol 3350 [Miralax] 17 gm PO DAILY@0800 Spironolactone [Aldactone] 25 mg PO DAILY@0800 Nitroglycerin Sl Tabs [Nitrostat] 0.4 mg SUBLINGUAL Q5M PRN tab PRN Reason: Chest Pain Morphine Sulfate ER [Ms Contin] 60 mg PO Q8H #9 tab oxyCODONE-APAP 10-325MG [Percocet 10-325 mg] 1 tab PO BID PRN #6 tab PRN Reason: Breakthrough Pain Aspirin 81 mg PO DAILY@1700 Bisacodyl [Dulcolax] 10 mg RECTAL DAILY PRN PRN Reason: Constipation Budesonide-Formot 160-4.5 Mcg [Symbicort 160-4.5 Mcg Inhaler] 2 puff INHALATION RT-BID clonazePAM [KlonoPIN] 0.5 mg PO BID@0800,2100 Digoxin [Lanoxin] 125 mcg PO DAILY@0600 Diltiazem Cd [Cardizem CD] 240 mg PO DAILY@0800 Fluconazole [Diflucan] 100 mg PO DAILY@0800 Lisinopril [Zestril] 10 mg PO DAILY@0800 Magnesium Hydroxide [Milk of Magnesia] 2,400 mg PO DAILY PRN PRN Reason: Constipation Metoprolol Tartrate [Lopressor] 25 mg PO BID@0800,1700 Na Phos,M-B/Na Phos,Di-Ba [Fleet Adult] 133 ml RECTAL DAILY PRN PRN Reason: Constipation Nicotine 14Mg/24Hr Patch [Habitrol] 1 patch TRANSDERM DAILY@0800 predniSONE See Taper PO DAILY Pregabalin [Lyrica] 150 mg PO BID@0800,2100 Discharge Medication List Simvastatin [Zocor] 20 mg PO DAILY@1700 06/06/14 [History] DULoxetine HCL [Cymbalta] 60 mg PO DAILY 07/22/17 [History] Levothyroxine Sodium [Synthroid] 50 mcg PO DAILY@0600 07/22/17 [History] Rivaroxaban [Xarelto] 20 mg PO DAILY@1700 07/22/17 [History] Albuterol Inhaler [Ventolin Hfa Inhaler] 2 puff INHALATION RT-Q6H PRN 06/01/18 [History] Furosemide [Lasix] 40 mg PO DAILY@0800 06/01/18 [History] Ipratropium-Albuterol Nebulize [Duoneb 0.5 mg-3 mg/3 ml Soln] 3 ml INHALATION RT-QID PRN 06/01/18 [History] Montelukast [Singulair] 10 mg PO DAILY@0800 12/30/18 [History] Nystatin 100,000Unit/gm Cream [Mycostatin Cream] 1 applic TOPICAL BID 12/30/18 [History] Polyethylene Glycol 3350 [Miralax] 17 gm PO DAILY@0800 12/30/18 [History] Spironolactone [Aldactone] 25 mg PO DAILY@0800 12/30/18 [History] Tamsulosin [Flomax] 0.4 mg PO DAILY@0800 12/30/18 [History] Morphine Sulfate ER [Ms Contin] 60 mg PO Q8H #9 tab 01/15/19 [Rx] Nitroglycerin Sl Tabs [Nitrostat] 0.4 mg SUBLINGUAL Q5M PRN tab 01/15/19 [Rx] oxyCODONE-APAP 10-325MG [Percocet 10-325 mg] 1 tab PO BID PRN #6 tab 01/15/19 [Rx] Aspirin 81 mg PO DAILY@1700 01/16/19 [History] Bisacodyl [Dulcolax] 10 mg RECTAL DAILY PRN 01/16/19 [History] Budesonide-Formot 160-4.5 Mcg [Symbicort 160-4.5 Mcg Inhaler] 2 puff INHALATION RT-BID 01/16/19 [History] Digoxin [Lanoxin] 125 mcg PO DAILY@0600 01/16/19 [History] Diltiazem Cd [Cardizem CD] 240 mg PO DAILY@0800 01/16/19 [History] Fluconazole [Diflucan] 100 mg PO DAILY@0800 01/16/19 [History] Lisinopril [Zestril] 10 mg PO DAILY@0800 01/16/19 [History] Magnesium Hydroxide [Milk of Magnesia] 2,400 mg PO DAILY PRN 01/16/19 [History] Metoprolol Tartrate [Lopressor] 25 mg PO BID@0800,1700 01/16/19 [History] Na Phos,M-B/Na Phos,Di-Ba [Fleet Adult] 133 ml RECTAL DAILY PRN 01/16/19 [History] Nicotine 14Mg/24Hr Patch [Habitrol] 1 patch TRANSDERM DAILY@0800 01/16/19 [History] Pregabalin [Lyrica] 150 mg PO BID@0800,2100 01/16/19 [History] clonazePAM [KlonoPIN] 0.5 mg PO BID@0800,2100 01/16/19 [History] predniSONE See Taper PO DAILY 01/16/19 [History] Follow up Appointment(s)/Referral(s): Trevor Hamilton MD [Primary Care Provider] - 1-2 days
[2019-01-18 13:03] VITALS: BP 101/54; PULSE 101; TEMP 98.8
== END 2019-01-18 14:30 | DRG 315 ==
LOC: EC 22:38 → 4MS4W 01-17 02:20 → OBSVTOIN 01-17 11:46
PROVIDERS: ADMIT Hospitalist; ATTEND Hospitalist
DX: I95.9 Hypotension, unspecified (principal); E87.2 Acidosis; I69.354 Hemiplegia and hemiparesis following cerebral infarction affecting left non-dominant side; J96.12 Chronic respiratory failure with hypercapnia; J96.11 Chronic respiratory failure with hypoxia; E03.9 Hypothyroidism, unspecified; E78.5 Hyperlipidemia, unspecified; E86.0 Dehydration; F41.8 Other specified anxiety disorders; G31.84 Mild cognitive impairment of uncertain or unknown etiology; I08.1 Rheumatic disorders of both mitral and tricuspid valves; I10 Essential (primary) hypertension; I48.0 Paroxysmal atrial fibrillation; M19.90 Unspecified osteoarthritis, unspecified site; M48.00 Spinal stenosis, site unspecified; R26.9 Unspecified abnormalities of gait and mobility; Z66 Do not resuscitate; Z79.01 Long term (current) use of anticoagulants; Z79.51 Long term (current) use of inhaled steroids; Z79.82 Long term (current) use of aspirin; Z79.890 Hormone replacement therapy; Z79.899 Other long term (current) drug therapy; Z86.711 Personal history of pulmonary embolism; Z87.891 Personal history of nicotine dependence; Z88.0 Allergy status to penicillin; Z88.1 Allergy status to other antibiotic agents; Z91.041 Radiographic dye allergy status; Z98.42 Cataract extraction status, left eye; Z98.41 Cataract extraction status, right eye
CPT/HCPCS: 36415; 36600; 71045; 80053; 80162; 81001; 82805; 83605; 84484; 85025; 85610; 85730; 87040; 87077; 87086; 87186; 93005; 94640; 96361; 96365; 99285

== ENCOUNTER 2019-03-16 18:34 | Emergency (ER) | payer BC ==
[2019-03-16] MEDS ORDERED: methylPREDNISolone SOD SUCCI 125 MG/2 ML VIAL IV STA (19:04)
[2019-03-16] MEDS ORDERED: IPRATROPIUM-ALBUTEROL 3 ML NEB INHALATION STA (19:04)
--- NOTE | 2019-03-16 19:07 | ED ---
General Adult HPI - General Chief complaint: Shortness of Breath Stated complaint: cough/congestion/SOB Time Seen by Provider: 03/16/19 18:54 Source: patient, RN notes reviewed Mode of arrival: ambulatory Limitations: no limitations - History of Present Illness Initial comments: Patient is a pleasant 61-year-old female presenting to the emergency department with difficulty breathing. Symptoms have been occurring for the past 2-3 weeks. Patient does have cough with yellow sputum. Patient had a temperature last night of 99.7. Patient does have history of similar symptoms previously associated with COPD. - Related Data Home Medications Medication Instructions Recorded Confirmed Simvastatin [Zocor] 20 mg PO DAILY@1700 06/06/14 01/16/19 DULoxetine HCL [Cymbalta] 60 mg PO DAILY 07/22/17 01/16/19 Levothyroxine Sodium [Synthroid] 50 mcg PO DAILY@0600 07/22/17 01/16/19 Rivaroxaban [Xarelto] 20 mg PO DAILY@1700 07/22/17 01/16/19 Albuterol Inhaler [Ventolin Hfa 2 puff INHALATION RT-Q6H PRN 06/01/18 01/16/19 Inhaler] Ipratropium-Albuterol Nebulize 3 ml INHALATION RT-QID PRN 06/01/18 01/16/19 [Duoneb 0.5 mg-3 mg/3 ml Soln] Nystatin 100,000Unit/gm Cream 1 applic TOPICAL BID 12/30/18 01/16/19 [Mycostatin Cream] Polyethylene Glycol 3350 [Miralax] 17 gm PO DAILY@0800 12/30/18 01/16/19 Spironolactone [Aldactone] 25 mg PO DAILY@0800 12/30/18 01/16/19 Tamsulosin [Flomax] 0.4 mg PO DAILY@0800 12/30/18 01/16/19 Aspirin 81 mg PO DAILY@1700 01/16/19 01/16/19 Bisacodyl [Dulcolax] 10 mg RECTAL DAILY PRN 01/16/19 01/16/19 Budesonide-Formot 160-4.5 Mcg 2 puff INHALATION RT-BID 01/16/19 01/16/19 [Symbicort 160-4.5 Mcg Inhaler] Digoxin [Lanoxin] 125 mcg PO DAILY@0600 01/16/19 01/16/19 Diltiazem Cd [Cardizem CD] 240 mg PO DAILY@0800 01/16/19 01/16/19 Magnesium Hydroxide [Milk of 2,400 mg PO DAILY PRN 01/16/19 01/16/19 Magnesia] Metoprolol Tartrate [Lopressor] 25 mg PO BID@0800,1700 01/16/19 01/16/19 Na Phos,M-B/Na Phos,Di-Ba [Fleet 133 ml RECTAL DAILY PRN 01/16/19 01/16/19 Adult] Nicotine 14Mg/24Hr Patch [Habitrol] 1 patch TRANSDERM DAILY@0800 01/16/19 01/16/19 predniSONE See Taper PO DAILY 01/16/19 01/16/19 Previous Rx's Medication Instructions Recorded Nitroglycerin Sl Tabs [Nitrostat] 0.4 mg SUBLINGUAL Q5M PRN tab 01/15/19 Montelukast [Singulair] 10 mg PO HS #0 01/18/19 Morphine Sulfate ER [Ms Contin] 60 mg PO Q12HR #4 tab 01/18/19 Pregabalin [Lyrica] 150 mg PO BID@0800,2100 #6 cap 01/18/19 clonazePAM [KlonoPIN] 0.5 mg PO BID@0800,2100 #6 tab 01/18/19 oxyCODONE-APAP 10-325MG [Percocet 1 tab PO BID PRN #6 tab 01/18/19 10-325 mg] Azithromycin [Zithromax Z-pack] 250 mg PO DIRECTED #6 tab 03/16/19 methylPREDNISolone Dose Pack 24 mg PO DAILY #1 tab 03/16/19 [Medrol Dose Pack] Allergies Allergy/AdvReac Type Severity Reaction Status Date / Time amoxicillin trihydrate Allergy Rash/Hives Verified 01/16/19 23:07 [From Augmentin] cefaclor [From Ceclor] Allergy Rash/Hives Verified 01/16/19 23:07 Iodinated Contrast Media Allergy Throat Verified 01/16/19 23:07 [Iodinated Contrast Media - Swelling IV Dye] Penicillins Allergy Rash/Hives Verified 01/16/19 23:07 potassium clavulanate Allergy Rash/Hives Verified 01/16/19 23:07 [From Augmentin] Review of Systems ROS Statement: Those systems with pertinent positive or pertinent negative responses have been documented in the HPI. ROS Other: All systems not noted in ROS Statement are negative. Constitutional: Reports: as per HPI Eyes: Denies: eye pain ENT: Denies: ear pain Respiratory: Reports: cough, dyspnea Cardiovascular: Denies: chest pain Endocrine: Reports: fatigue Gastrointestinal: Denies: abdominal pain Genitourinary: Denies: dysuria Musculoskeletal: Denies: back pain Skin: Denies: rash Neurological: Denies: weakness Past Medical History Past Medical History: Atrial Fibrillation, COPD, CVA/TIA, Hyperlipidemia, Hypertension, Memory Impairment, Pulmonary Embolus (PE), Thyroid Disorder Additional Past Medical History / Comment(s): CVA WITH LEFT SIDED EYE DROOP, NUMBNESS ALAN FINGERS, LEFT LEG SWELLING, DDD, SPINAL STENOSIS, severe mitral and moderate tricuspid valve regurgitation; memory impairment (short term per ) History of Any Multi-Drug Resistant Organisms: None Reported Past Surgical History: Back Surgery Additional Past Surgical History / Comment(s): d&c's, ALAN CATARACT SX Past Anesthesia/Blood Transfusion Reactions: No Reported Reaction Additional Past Anesthesia/Blood Transfusion Reaction / Comment(s): "anesthesia took more than usual, I didn't go under" Past Psychological History: Anxiety Smoking Status: Former smoker Past Alcohol Use History: None Reported Past Drug Use History: None Reported - Past Family History Sister(s) Family Medical History: Cancer Additional Family Medical History / Comment(s): breast General Exam Limitations: no limitations General appearance: alert, in no apparent distress Head exam: Present: normocephalic Eye exam: Present: normal appearance, PERRL ENT exam: Present: normal oropharynx Neck exam: Present: normal inspection Respiratory exam: Present: wheezes, decreased breath sounds Cardiovascular Exam: Present: regular rate, normal rhythm GI/Abdominal exam: Present: soft. Absent: tenderness Extremities exam: Present: normal inspection. Absent: pedal edema, calf tenderness Neurological exam: Present: alert Psychiatric exam: Present: normal affect, normal mood Skin exam: Present: normal color Course Vital Signs 03/16/19 03/16/19 03/16/19 18:45 19:14 19:20 Temperature 98.8 F Pulse Rate 103 H 100 Respiratory 18 16 22 Rate Blood Pressure 100/62 O2 Sat by Pulse 96 Oximetry 03/16/19 03/16/19 19:24 20:25 Temperature 98.4 F Pulse Rate 103 H 75 Respiratory 18 20 Rate Blood Pressure 117/61 O2 Sat by Pulse 97 Oximetry EKG Findings - EKG Comments: EKG Findings:: Sinus tachycardia 106. Premature atrial complexes present. CT 124. QRS 80. QT 320. QTc 425. Normal axis. Normal QRS. No acute ST change. Medical Decision Making - Medical Decision Making Patient reevaluated and significantly improved. Patient requested discharge home. Patient updated on results. Patient refuses admission stating she feels much better and needs to get home to see family. Patient does request oral steroids and antibiotics. - Lab Data Result diagrams: 03/16/19 19:45 03/16/19 19:45 Lab Results 03/16/19 03/16/19 03/16/19 Range/Units 19:45 19:45 19:45 WBC 11.7 H (3.8-10.6) k/uL RBC 3.80 (3.80-5.40) m/uL Hgb 10.3 L (11.4-16.0) gm/dL Hct 33.1 L (34.0-46.0) % MCV 87.2 D (80.0-100.0) fL MCH 27.2 (25.0-35.0) pg MCHC 31.3 (31.0-37.0) g/dL RDW 17.0 H (11.5-15.5) % Plt Count 292 (150-450) k/uL Neutrophils % 75 % Lymphocytes % 14 % Monocytes % 7 % Eosinophils % 1 % Basophils % 1 % Neutrophils # 8.8 H (1.3-7.7) k/uL Lymphocytes # 1.7 (1.0-4.8) k/uL Monocytes # 0.8 (0-1.0) k/uL Eosinophils # 0.1 (0-0.7) k/uL Basophils # 0.1 (0-0.2) k/uL Hypochromasia Moderate Anisocytosis Slight PT 10.9 (9.0-12.0) sec INR 1.0 (<1.2) APTT 24.6 (22.0-30.0) sec Sodium 134 L (137-145) mmol/L Potassium 3.6 (3.5-5.1) mmol/L Chloride 94 L (98-107) mmol/L Carbon Dioxide 35 H (22-30) mmol/L Anion Gap 5 mmol/L BUN 9 (7-17) mg/dL Creatinine 0.54 (0.52-1.04) mg/dL Est GFR (CKD-EPI)AfAm >90 (>60 ml/min/1.73 sqM) Est GFR (CKD-EPI)NonAf >90 (>60 ml/min/1.73 sqM) Glucose 132 H (74-99) mg/dL Calcium 9.3 (8.4-10.2) mg/dL Total Bilirubin 0.7 (0.2-1.3) mg/dL AST 22 (14-36) U/L ALT 13 (4-34) U/L Alkaline Phosphatase 89 (38-126) U/L Total Protein 6.0 L (6.3-8.2) g/dL Albumin 3.3 L (3.5-5.0) g/dL - Radiology Data Radiology results: image reviewed (Chest x-ray does have chronic appearing scarring, possible atelectasis.) Disposition Clinical Impression: Acute exacerbation of chronic obstructive airways disease Disposition: HOME SELF-CARE Additional Instructions: Please follow-up with primary care physician and pulmonary doctor in the next day or 2 for recheck. Return for difficulty breathing, fever, increased weakness, worsening symptoms or any other concerns. Prescription sent to [facility] pharmacy. Prescriptions: methylPREDNISolone Dose Pack [Medrol Dose Pack] 24 mg PO DAILY #1 tab Azithromycin [Zithromax Z-pack] 250 mg PO DIRECTED #6 tab Is patient prescribed a controlled substance at d/c from ED?: No Referrals: Trevor Hamilton MD [Primary Care Provider] - 1-2 days Mark Simpson MD [STAFF PHYSICIAN] - 1-2 days Time of Disposition: 20:41 Decision Time: 20:15
[2019-03-16 20:04] LABS: Anisocytosis Slight; Basophils # (A) 0.1 k/uL (0-0.2); Basophils % (A) 1 %; Eosinophils # (A) 0.1 k/uL (0-0.7); Eosinophils % (A) 1 %; HCT 33.1 % (34.0-46.0); HGB 10.3 gm/dL (11.4-16.0); Hypochromasia Moderate; Lymphocytes # (A) 1.7 k/uL (1.0-4.8); Lymphocytes % (A) 14 %; MCH 27.2 pg (25.0-35.0); MCHC 31.3 g/dL (31.0-37.0); Mean Platelet Volume 7.7; Monocytes # (A) 0.8 k/uL (0-1.0); Monocytes % (A) 7 %; Neutrophils # (A) 8.8 k/uL (1.3-7.7); Neutrophils % (A) 75 %; Platelet Count 292 k/uL (150-450); WBC 11.7 k/uL (3.8-10.6)
[2019-03-16 20:07] LABS: Partial Thromboplastin Time 24.6 sec (22.0-30.0); Prothrombin Time 10.9 sec (9.0-12.0)
--- NOTE | 2019-03-16 20:11 | XR ---
EXAMINATION TYPE: XR chest 2V DATE OF EXAM: 03/16/2019 COMPARISON: 01/16/2019 INDICATION: Difficulty breathing, cough, fever TECHNIQUE: Frontal and lateral views of the chest are obtained. FINDINGS: The heart size is normal. The pulmonary vasculature is normal. There appear to be some chronic scarring present at the bilateral lung bases. Some underlying atelect asis can be present. Suspicious consolidation is not evident. IMPRESSION: 1. Chronic appearing scarring at the lung bases present previously. Some underlying atelectasis may a lso be present. Follow-up can be performed as clinically indicated.
[2019-03-16 20:12] LABS: ALT 13 U/L (4-34); AST 22 U/L (14-36); African American GFR (CKD) >90 (>60 ml/min/1.73 sqM); Albumin 3.3 g/dL (3.5-5.0); Alkaline Phosphatase 89 U/L (38-126); Anion Gap 5 mmol/L; Blood Urea Nitrogen 9 mg/dL (7-17); Calcium 9.3 mg/dL (8.4-10.2); Carbon Dioxide 35 mmol/L (22-30); Chloride 94 mmol/L (98-107); Glucose 132 mg/dL (74-99); MCV 87.2 fL (80.0-100.0); Non-African American GFR(CKD) >90 (>60 ml/min/1.73 sqM); Potassium 3.6 mmol/L (3.5-5.1); Sodium 134 mmol/L (137-145); Total Bilirubin 0.7 mg/dL (0.2-1.3)
[2019-03-16] MEDS ORDERED: IPRATROPIUM-ALBUTEROL 3 ML NEB INHALATION PRN (20:15)
[2019-03-16 20:27] VITALS: BP 117/61; PULSE 75; RESP 20; TEMP 98.4
[2019-03-16] MEDS ORDERED: FUROSEMIDE 10 MG/ML 4 ML VIAL IV STA (20:39)
[2019-03-16] MEDS ORDERED: ALPRAZolam 0.25 MG TAB PO PRN (20:39)
[2019-03-16] MEDS ORDERED: ACETAMINOPHEN TAB 500 MG TAB PO PRN (20:39)
[2019-03-16] MEDS ORDERED: AZITHROMYCIN 500 MG in SODIUM CHLORIDE 0.9% 250 ML IVPB SCH (20:45)
[2019-03-16] MEDS ORDERED: LEVOFLOXACIN 500MG-D5W PMX 500 MG in DEXTROSE/WATER 1 100ML.BAG IVPB SCH (20:45)
[2019-03-16] MEDS ORDERED: INSULIN ASPART (NovoLOG) 100 UNIT/ML VIAL SQ SCH (21:00)
[2019-03-16] MEDS ORDERED: HEPARIN SODIUM,PORCINE 5,000 UNIT/ML 1 ML VIAL SQ SCH (21:00)
--- NOTE | 2019-03-16 23:15 | HP ---
HISTORY AND PHYSICAL CHIEF COMPLAINT: Shortness of breath. HISTORY OF PRESENT ILLNESS: This 64-year-old woman with a past medical history of multiple medical problems including history of COPD, history of previous CVA, hypertension, memory impairment, history of pulmonary embolism being followed by Dr. Ezequiel Hamilton in the outpatient setting since . The patient has increased shortness of breath and cough and sputum. The patient came to [facility] for further evaluation and treatment because of lack of improvement. There is no history of fever or rigors. No history of headache, loss of consciousness or seizures. The patient also following with Dr. Simpson in the outpatient setting. PAST MEDICAL HISTORY: Atrial fibrillation, COPD, CAD, TIA, hypertension, hyperlipidemia, memory impairment. HOME MEDICATIONS: 1. Prednisone daily. 2. Oxycodone 10 mg b.i.d. p.r.n. 3. Klonopin 0.5 mg b.i.d. p.r.n. 4. Flomax 0.4 daily. 5. Aldactone 25 mg. 6. Zocor 20 mg. 7. Xarelto 10 mg. 8. Lyrica 150 mg p.o. b.i.d. 9. MiraLAX 17 g p.o. daily. 10.Mycostatin 1 application b.i.d. 11.Nitrostat point 0.4 mg p.r.n. 12.Habitrol 14 daily. 13.Fleet's enema. 14.Ms Contin 60 mg p.o. b.i.d. 15.Singulair 10 mg at bedtime. 16.Lopressor 25 mg p.o. b.i.d. 17.Milk of Magnesia. 18.Synthroid 50 mcg p.o. 19.DuoNeb q.i.d. and p.r.n. 20.Cardizem CD 240 mg. 21.Lanoxin 125 mg p.o. 22.Cymbalta 60 mg p.o. daily. 23.Symbicort 4.5 two puffs b.i.d. 24.Dulcolax 10 mg p.o. daily. 25.Aspirin 81 mg p.o. daily. 26.Albuterol inhaler. ALLERGIES: AMOXICILLIN, CEFACLOR, CONTRAST DYE, PENICILLIN AND AUGMENTIN. FAMILY HISTORY: History of breast cancer in the family. SOCIAL HISTORY: History of smoking. No history of current smoking or alcohol intake. REVIEW OF SYSTEMS: ENT: No diminished vision, no diminished hearing. CARDIOVASCULAR: As mentioned earlier. RESPIRATORY: As mentioned earlier. GI: No nausea. : No dysuria. NERVOUS SYSTEM: No numbness or weakness. ALLERGY: No asthma or hayfever. MUSCULOSKELETAL: As mentioned earlier. HEMATOLOGY: No history of anemia. ENDOCRINE: History of hypothyroidism. CONSTITUTIONAL: As mentioned earlier. DERMATOLOGY: Negative. RHEUMATOLOGY: Negative. PSYCHIATRY: As mentioned earlier. PHYSICAL EXAM: Alert and oriented x3. The pulse is 75, blood pressure 117/61, respiration 20, temperature 98.4, pulse ox 97% on 2 L. HEENT: Conjunctivae normal. Oral mucosa moist. NECK: No jugular venous distention. No lymph node enlargement. CARDIOVASCULAR: S1, S2. RESPIRATORY: Diminished breath sounds at the bases. Bilateral scattered rhonchi and crackles. Expiratory wheezing also present. ABDOMEN: Soft, obese, nontender. No mass palpable. LEGS: No edema, no swelling. NERVOUS SYSTEM: Higher functions mentioned earlier. Moves all four limbs. No focal deficits. LYMPHATICS: No lymph node in neck or axilla. SKIN: No rash. JOINTS: No active deforming arthropathy. LAB STUDIES: WBC 11.2, hemoglobin 10.3, sodium 135. ASSESSMENT: 1. Chronic obstructive pulmonary disease acute exacerbation with acute purulent tracheobronchitis or possible bilateral bronchopneumonia. 2. Rule out influenza. 3. Hyponatremia. 4. Increased WBC. 5. Anemia, normocytic anemia of chronic disease. 6. History atrial fibrillation. 7. History of cerebrovascular accident, transient ischemic attack. 8. Hypertension. 9. Hyperlipidemia. 10.History of memory impairment. 11.History of pulmonary embolism. 12.History of cerebrovascular accident with left-sided eye droop. 13.History of spinal stenosis. 14.Severe mitral and moderate tricuspid valve regurgitation. 15.History of back surgery. 16.History of anxiety. 17.Remote history of nicotine dependence. RECOMMENDATION AND DISCUSSION: This 63-year-old woman who presented with multiple medical issues, will monitor the patient closely. We will initiate broad-spectrum IV antibiotics as well as bronchodilators and steroids. Also, consult Dr. Maloney, BNP. I would recommend a dose of diuretics also. The patient did have an echocardiogram in the last month when the patient was here and a 2D echo showed ejection fraction 60 to 65%. We will continue to monitor. Guarded prognosis because of multiple complex medical issues. Further recommendations to follow. MMODL / IJN: [id number] /
[2019-03-17] MEDS ORDERED: methylPREDNISolone SOD SUCCI 125 MG/2 ML VIAL IV SCH
[2019-03-17] MEDS ORDERED: PANTOPRAZOLE 40 MG TABLET PO SCH (07:30)
[2019-03-17] MEDS ORDERED: IPRATROPIUM-ALBUTEROL 3 ML NEB INHALATION SCH (08:00)
[2019-03-17] MEDS ORDERED: MULTIVITAMINS, THERA 1 EACH TAB PO SCH (12:00)
== END 2019-03-16 20:49 | disposition home or self-care (01) ==
LOC: EC 18:34 → UNDOADMOB 20:15 → 4SSUR 20:15 → EC 20:49
DX: J44.1 Chronic obstructive pulmonary disease with (acute) exacerbation (principal); I48.91 Unspecified atrial fibrillation; E78.5 Hyperlipidemia, unspecified; I10 Essential (primary) hypertension; E07.9 Disorder of thyroid, unspecified; F41.9 Anxiety disorder, unspecified; Z87.891 Personal history of nicotine dependence; Z88.0 Allergy status to penicillin; Z88.1 Allergy status to other antibiotic agents; Z91.041 Radiographic dye allergy status; Z79.01 Long term (current) use of anticoagulants; Z79.51 Long term (current) use of inhaled steroids; Z79.52 Long term (current) use of systemic steroids; Z79.82 Long term (current) use of aspirin; Z79.890 Hormone replacement therapy; Z79.899 Other long term (current) drug therapy; Z86.73 Personal history of transient ischemic attack (TIA), and cerebral infarction without residual deficits; Z86.711 Personal history of pulmonary embolism
CPT/HCPCS: 36415; 94640; 93005; 83880; 80053; 85025; 85610; 85730; 71046; 99285; 96374; J2930

== ENCOUNTER 2019-04-04 17:20 | Inpatient (IN) | payer BC ==
[2019-04-04] MEDS ORDERED: FUROSEMIDE 10 MG/ML 4 ML VIAL IV STA (17:51)
[2019-04-04] MEDS ORDERED: methylPREDNISolone SOD SUCCI 125 MG/2 ML VIAL IV STA (17:51)
[2019-04-04] MEDS ORDERED: IPRATROPIUM-ALBUTEROL 3 ML NEB INHALATION STA (17:51)
--- NOTE | 2019-04-04 17:56 | ED ---
SOB HPI - General Chief Complaint: Shortness of Breath Stated Complaint: AFIB Time Seen by Provider: 04/04/19 17:41 Source: patient, RN notes reviewed Mode of arrival: wheelchair Limitations: no limitations - History of Present Illness Initial Comments: This is a 63-year-old female with a prior history of atrial fibrillation also COPD who was seen by her doctor today and sent here for evaluation and inpatient treatment. She states she's had about a 20 pound weight in the last week or so. She had a cough last week or week and a half initially with yellow phlegm now yellowing green phlegm she also is exertional dyspnea and was found to be back in atrial fibrillation by her doctor today. She apparently was in a normal sinus rhythm prior to this. States her legs are more swollen than usual she denies any fevers chills or sweats at this time no overt chest pain. MD Complaint: shortness of breath, cough - Related Data Home Medications Medication Instructions Recorded Confirmed Simvastatin [Zocor] 20 mg PO DAILY@1700 06/06/14 01/16/19 DULoxetine HCL [Cymbalta] 60 mg PO DAILY 07/22/17 01/16/19 Levothyroxine Sodium [Synthroid] 50 mcg PO DAILY@0600 07/22/17 01/16/19 Rivaroxaban [Xarelto] 20 mg PO DAILY@169907/22/17 01/16/19 Albuterol Inhaler [Ventolin Hfa 2 puff INHALATION RT-Q6H PRN 06/01/18 01/16/19 Inhaler] Ipratropium-Albuterol Nebulize 3 ml INHALATION RT-QID PRN 06/01/18 01/16/19 [Duoneb 0.5 mg-3 mg/3 ml Soln] Nystatin 100,000Unit/gm Cream 1 applic TOPICAL BID 12/30/18 01/16/19 [Mycostatin Cream] Polyethylene Glycol 3350 [Miralax] 17 gm PO DAILY@0800 12/30/18 01/16/19 Spironolactone [Aldactone] 25 mg PO DAILY@0800 12/30/18 01/16/19 Tamsulosin [Flomax] 0.4 mg PO DAILY@0800 12/30/18 01/16/19 Aspirin 81 mg PO DAILY@17001/16/19 01/16/19 Bisacodyl [Dulcolax] 10 mg RECTAL DAILY PRN 01/16/19 01/16/19 Budesonide-Formot 160-4.5 Mcg 2 puff INHALATION RT-BID 01/16/19 01/16/19 [Symbicort 160-4.5 Mcg Inhaler] Digoxin [Lanoxin] 125 mcg PO DAILY@0600 01/16/19 01/16/19 Diltiazem Cd [Cardizem CD] 240 mg PO DAILY@0800 01/16/19 01/16/19 Magnesium Hydroxide [Milk of 2,400 mg PO DAILY PRN 01/16/19 01/16/19 Magnesia] Metoprolol Tartrate [Lopressor] 25 mg PO BID@0800,1700 01/16/19 01/16/19 Na Phos,M-B/Na Phos,Di-Ba [Fleet 133 ml RECTAL DAILY PRN 01/16/19 01/16/19 Adult] Nicotine 14Mg/24Hr Patch [Habitrol] 1 patch TRANSDERM DAILY@0800 01/16/19 01/16/19 predniSONE See Taper PO DAILY 01/16/19 01/16/19 Previous Rx's Medication Instructions Recorded Nitroglycerin Sl Tabs [Nitrostat] 0.4 mg SUBLINGUAL Q5M PRN tab 01/15/19 Montelukast [Singulair] 10 mg PO HS #0 01/18/19 Morphine Sulfate ER [Ms Contin] 60 mg PO Q12HR #4 tab 01/18/19 Pregabalin [Lyrica] 150 mg PO BID@0800,2100 #6 cap 01/18/19 clonazePAM [KlonoPIN] 0.5 mg PO BID@0800,2100 #6 tab 01/18/19 oxyCODONE-APAP 10-325MG [Percocet 1 tab PO BID PRN #6 tab 01/18/19 10-325 mg] Azithromycin [Zithromax Z-pack] 250 mg PO DIRECTED #6 tab 03/16/19 methylPREDNISolone Dose Pack 24 mg PO DAILY #1 tab 03/16/19 [Medrol Dose Pack] Allergies Allergy/AdvReac Type Severity Reaction Status Date / Time amoxicillin trihydrate Allergy Rash/Hives Verified 04/04/19 17:26 [From Augmentin] cefaclor [From Ceclor] Allergy Rash/Hives Verified 04/04/19 17:26 Iodinated Contrast Media Allergy Throat Verified 04/04/19 17:26 [Iodinated Contrast Media - Swelling IV Dye] Penicillins Allergy Rash/Hives Verified 04/04/19 17:26 potassium clavulanate Allergy Rash/Hives Verified 04/04/19 17:26 [From Augmentin] Review of Systems ROS Statement: Those systems with pertinent positive or pertinent negative responses have been documented in the HPI. ROS Other: All systems not noted in ROS Statement are negative. Past Medical History Past Medical History: Atrial Fibrillation, COPD, CVA/TIA, Hyperlipidemia, Hypertension, Memory Impairment, Pulmonary Embolus (PE), Thyroid Disorder Additional Past Medical History / Comment(s): CVA WITH LEFT SIDED EYE DROOP, NUMBNESS ALAN FINGERS, LEFT LEG SWELLING, DDD, SPINAL STENOSIS, severe mitral and moderate tricuspid valve regurgitation; memory impairment (short term per husba nd) History of Any Multi-Drug Resistant Organisms: None Reported Past Surgical History: Back Surgery Additional Past Surgical History / Comment(s): d&c's, ALAN CATARACT SX Past Anesthesia/Blood Transfusion Reactions: No Reported Reaction Additional Past Anesthesia/Blood Transfusion Reaction / Comment(s): "anesthesia took more than usual, I didn't go under" Past Psychological History: Anxiety Smoking Status: Former smoker Past Alcohol Use History: None Reported Past Drug Use History: None Reported - Past Family History Sister(s) Family Medical History: Cancer Additional Family Medical History / Comment(s): breast General Exam - General Exam Comments Initial Comments: This is a well-developed well-nourished awake alert oriented 3 female Limitations: no limitations General appearance: alert, anxious Head exam: Present: atraumatic, normocephalic, normal inspection Eye exam: Present: normal appearance, PERRL, EOMI. Absent: scleral icterus, conjunctival injection, periorbital swelling ENT exam: Present: normal exam, mucous membranes moist Neck exam: Present: normal inspection, full ROM, other (No stridor JVD or bruits). Absent: tenderness, meningismus, lymphadenopathy Respiratory exam: Present: wheezes, decreased breath sounds. Absent: respiratory distress, rales, rhonchi, stridor Cardiovascular Exam: Present: tachycardia, irregular rhythm. Absent: systolic murmur, diastolic murmur, rubs, gallop, clicks GI/Abdominal exam: Present: soft, normal bowel sounds. Absent: distended, t enderness, guarding, rebound, rigid Extremities exam: Present: normal inspection, full ROM, normal capillary refill, pedal edema (+3 pedal edema bilaterally to the knees). Absent: tenderness, joint swelling, calf tenderness Back exam: Present: normal inspection Neurological exam: Present: alert, oriented X3, CN II-XII intact Psychiatric exam: Present: normal affect, normal mood Skin exam: Present: warm, dry, intact, normal color. Absent: rash Course Vital Signs 04/04/19 04/04/19 04/04/19 17:27 17:30 17:56 Temperature 98.0 F Pulse Rate 98 112 H Respiratory 20 25 H 20 Rate Blood Pressure 127/58 O2 Sat by Pulse 96 Oximetry 04/04/19 04/04/19 18:08 18:44 Temperature Pulse Rate 114 H 97 Respiratory 18 18 Rate Blood Pressure 112/67 O2 Sat by Pulse 98 Oximetry Medical Decision Making - Medical Decision Making I did discuss findings with patient and family patient is x-ray shows no acute findings. Is a A. fib does have a mildly elevated lactic acid this is likely in this basis of intravascular viral depletion no definite infectious etiology is identified at this time she did have evidence of some bronchitis. She will be admitted I did discuss case with Dr. Nuñez - Lab Data Result diagrams: 04/04/19 17:44 04/04/19 17:44 Lab Results 04/04/19 04/04/19 04/04/19 Range/Units 17:44 17:44 17:44 WBC 10.5 (3.8-10.6) k/uL RBC 4.10 (3.80-5.40) m/uL Hgb 10.7 L (11.4-16.0) gm/dL Hct 35.5 (34.0-46.0) % MCV 86.6 (80.0-100.0) fL MCH 26.1 (25.0-35.0) pg MCHC 30.1 L (31.0-37.0) g/dL RDW 18.3 H (11.5-15.5) % Plt Count 207 (150-450) k/uL Neutrophils % 85 % Lymphocytes % 6 % Monocytes % 5 % Eosinophils % 1 % Basophils % 1 % Neutrophils # 9.0 H (1.3-7.7) k/uL Lymphocytes # 0.7 L (1.0-4.8) k/uL Monocytes # 0.5 (0-1.0) k/uL Eosinophils # 0.1 (0-0.7) k/uL Basophils # 0.1 (0-0.2) k/uL Hypochromasia Slight Anisocytosis Slight PT (9.0-12.0) sec INR (<1.2) APTT (22.0-30.0) sec Sodium 137 (137-145) mmol/L Potassium 4.5 (3.5-5.1) mmol/L Chloride 97 L (98-107) mmol/L Carbon Dioxide 34 H (22-30) mmol/L Anion Gap 6 mmol/L BUN 16 (7-17) mg/dL Creatinine 0.58 (0.52-1.04) mg/dL Est GFR (CKD-EPI)AfAm >90 (>60 ml/min/1.73 sqM) Est GFR (CKD-EPI)NonAf >90 (>60 ml/min/1.73 sqM) Glucose 159 H (74-99) mg/dL Plasma Lactic Acid Shailesh 2.7 H* (0.7-2.0) mmol/L Calcium 8.9 (8.4-10.2) mg/dL Magnesium 1.9 (1.6-2.3) mg/dL Total Bilirubin 0.4 (0.2-1.3) mg/dL AST 25 (14-36) U/L ALT 20 (4-34) U/L Alkaline Phosphatase 91 (38-126) U/L Creatine Kinase 62 (30-135) U/L Troponin I (0.000-0.034) ng/mL NT-Pro-B Natriuret Pep pg/mL Total Protein 6.4 (6.3-8.2) g/dL Albumin 3.7 (3.5-5.0) g/dL 04/04/19 04/04/19 04/04/19 Range/Units 17:44 17:44 17:44 WBC (3.8-10.6) k/uL RBC (3.80-5.40) m/uL Hgb (11.4-16.0) gm/dL Hct (34.0-46.0) % MCV (80.0-100.0) fL MCH (25.0-35.0) pg MCHC (31.0-37.0) g/dL RDW (11.5-15.5) % Plt Count (150-450) k/uL Neutrophils % % Lymphocytes % % Monocytes % % Eosinophils % % Basophils % % Neutrophils # (1.3-7.7) k/uL Lymphocytes # (1.0-4.8) k/uL Monocytes # (0-1.0) k/uL Eosinophils # (0-0.7) k/uL Basophils # (0-0.2) k/uL Hypochromasia Anisocytosis PT 10.1 (9.0-12.0) sec INR 1.0 (<1.2) APTT 22.0 (22.0-30.0) sec Sodium (137-145) mmol/L Potassium (3.5-5.1) mmol/L Chloride (98-107) mmol/L Carbon Dioxide (22-30) mmol/L Anion Gap mmol/L BUN (7-17) mg/dL Creatinine (0.52-1.04) mg/dL Est GFR (CKD-EPI)AfAm (>60 ml/min/1.73 sqM) Est GFR (CKD-EPI)NonAf (>60 ml/min/1.73 sqM) Glucose (74-99) mg/dL Plasma Lactic Acid Shailesh (0.7-2.0) mmol/L Calcium (8.4-10.2) mg/dL Magnesium (1.6-2.3) mg/dL Total Bilirubin (0.2-1.3) mg/dL AST (14-36) U/L ALT (4-34) U/L Alkaline Phosphatase (38-126) U/L Creatine Kinase (30-135) U/L Troponin I <0.012 (0.000-0.034) ng/mL NT-Pro-B Natriuret Pep 671 pg/mL Total Protein (6.3-8.2) g/dL Albumin (3.5-5.0) g/dL - EKG Data -: EKG Interpreted by Me (Atrial fibrillation rate of 107 QRS 76 QT since QTC 322/[address] ) Disposition Clinical Impression: Atrial fibrillation with rapid ventricular response, Bronchitis, Acute exacerbation of chronic obstructive pulmonary disease, Edema Disposition: ADMITTED IP TO THIS HOSP Condition: Fair Referrals: Trevor Hamilton MD [Primary Care Provider] - 1-2 days
[2019-04-04 18:26] LABS: Anisocytosis Slight; Basophils # (A) 0.1 k/uL (0-0.2); Basophils % (A) 1 %; Eosinophils # (A) 0.1 k/uL (0-0.7); Eosinophils % (A) 1 %; HCT 35.5 % (34.0-46.0); HGB 10.7 gm/dL (11.4-16.0); Hypochromasia Slight; Lymphocytes # (A) 0.7 k/uL (1.0-4.8); Lymphocytes % (A) 6 %; MCH 26.1 pg (25.0-35.0); MCHC 30.1 g/dL (31.0-37.0); MCV 86.6 fL (80.0-100.0); Mean Platelet Volume 7.6; Monocytes # (A) 0.5 k/uL (0-1.0); Monocytes % (A) 5 %; Neutrophils % (A) 85 %; Platelet Count 207 k/uL (150-450); RDW 18.3 % (11.5-15.5); WBC 10.5 k/uL (3.8-10.6)
[2019-04-04 18:35] LABS: ALT 20 U/L (4-34); AST 25 U/L (14-36); African American GFR (CKD) >90 (>60 ml/min/1.73 sqM); Albumin 3.7 g/dL (3.5-5.0); Alkaline Phosphatase 91 U/L (38-126); Anion Gap 6 mmol/L; Blood Urea Nitrogen 16 mg/dL (7-17); Calcium 8.9 mg/dL (8.4-10.2); Carbon Dioxide 34 mmol/L (22-30); Chloride 97 mmol/L (98-107); Creatine Kinase 62 U/L (30-135); Glucose 159 mg/dL (74-99); Magnesium 1.9 mg/dL (1.6-2.3); Non-African American GFR(CKD) >90 (>60 ml/min/1.73 sqM); Potassium 4.5 mmol/L (3.5-5.1); Sodium 137 mmol/L (137-145); Total Bilirubin 0.4 mg/dL (0.2-1.3); Total Protein 6.4 g/dL (6.3-8.2)
[2019-04-04 18:39] LABS: Prothrombin Time 10.1 sec (9.0-12.0)
--- NOTE | 2019-04-04 19:34 | XR ---
EXAMINATION TYPE: XR chest 2V DATE OF EXAM: 04/04/2019 COMPARISON: 03/16/2019 HISTORY: Difficulty breathing TECHNIQUE: 2 views FINDINGS: There is some linear density at the lung bases. There is no heart failure. There is no defi nite pleural effusion. Mediastinum is normal. There is anterior wedging of mid thoracic vertebra up t o 30%. IMPRESSION: There is some atelectasis at the lung bases slightly improved compared to last exam. No h eart failure seen. Stable thoracic compression fractures.
--- NOTE | 2019-04-04 20:25 | ED ---
Medical Decision Making - Lab Data Result diagrams: 04/04/19 17:44 04/04/19 17:44 Lab Results 04/04/19 04/04/19 04/04/19 Range/Units 17:44 17:44 17:44 WBC 10.5 (3.8-10.6) k/uL RBC 4.10 (3.80-5.40) m/uL Hgb 10.7 L (11.4-16.0) gm/dL Hct 35.5 (34.0-46.0) % MCV 86.6 (80.0-100.0) fL MCH 26.1 (25.0-35.0) pg MCHC 30.1 L (31.0-37.0) g/dL RDW 18.3 H (11.5-15.5) % Plt Count 207 (150-450) k/uL Neutrophils % 85 % Lymphocytes % 6 % Monocytes % 5 % Eosinophils % 1 % Basophils % 1 % Neutrophils # 9.0 H (1.3-7.7) k/uL Lymphocytes # 0.7 L (1.0-4.8) k/uL Monocytes # 0.5 (0-1.0) k/uL Eosinophils # 0.1 (0-0.7) k/uL Basophils # 0.1 (0-0.2) k/uL Hypochromasia Slight Anisocytosis Slight PT (9.0-12.0) sec INR (<1.2) APTT (22.0-30.0) sec Sodium 137 (137-145) mmol/L Potassium 4.5 (3.5-5.1) mmol/L Chloride 97 L (98-107) mmol/L Carbon Dioxide 34 H (22-30) mmol/L Anion Gap 6 mmol/L BUN 16 (7-17) mg/dL Creatinine 0.58 (0.52-1.04) mg/dL Est GFR (CKD-EPI)AfAm >90 (>60 ml/min/1.73 sqM) Est GFR (CKD-EPI)NonAf >90 (>60 ml/min/1.73 sqM) Glucose 159 H (74-99) mg/dL Plasma Lactic Acid Shailesh 2.7 H* (0.7-2.0) mmol/L Calcium 8.9 (8.4-10.2) mg/dL Magnesium 1.9 (1.6-2.3) mg/dL Total Bilirubin 0.4 (0.2-1.3) mg/dL AST 25 (14-36) U/L ALT 20 (4-34) U/L Alkaline Phosphatase 91 (38-126) U/L Creatine Kinase 62 (30-135) U/L Troponin I (0.000-0.034) ng/mL NT-Pro-B Natriuret Pep pg/mL Total Protein 6.4 (6.3-8.2) g/dL Albumin 3.7 (3.5-5.0) g/dL 04/04/19 04/04/19 04/04/19 Range/Units 17:44 17:44 17:44 WBC (3.8-10.6) k/uL RBC (3.80-5.40) m/uL Hgb (11.4-16.0) gm/dL Hct (34.0-46.0) % MCV (80.0-100.0) fL MCH (25.0-35.0) pg MCHC (31.0-37.0) g/dL RDW (11.5-15.5) % Plt Count (150-450) k/uL Neutrophils % % Lymphocytes % % Monocytes % % Eosinophils % % Basophils % % Neutrophils # (1.3-7.7) k/uL Lymphocytes # (1.0-4.8) k/uL Monocytes # (0-1.0) k/uL Eosinophils # (0-0.7) k/uL Basophils # (0-0.2) k/uL Hypochromasia Anisocytosis PT 10.1 (9.0-12.0) sec INR 1.0 (<1.2) APTT 22.0 (22.0-30.0) sec Sodium (137-145) mmol/L Potassium (3.5-5.1) mmol/L Chloride (98-107) mmol/L Carbon Dioxide (22-30) mmol/L Anion Gap mmol/L BUN (7-17) mg/dL Creatinine (0.52-1.04) mg/dL Est GFR (CKD-EPI)AfAm (>60 ml/min/1.73 sqM) Est GFR (CKD-EPI)NonAf (>60 ml/min/1.73 sqM) Glucose (74-99) mg/dL Plasma Lactic Acid Shailesh (0.7-2.0) mmol/L Calcium (8.4-10.2) mg/dL Magnesium (1.6-2.3) mg/dL Total Bilirubin (0.2-1.3) mg/dL AST (14-36) U/L ALT (4-34) U/L Alkaline Phosphatase (38-126) U/L Creatine Kinase (30-135) U/L Troponin I <0.012 (0.000-0.034) ng/mL NT-Pro-B Natriuret Pep 671 pg/mL Total Protein (6.3-8.2) g/dL Albumin (3.5-5.0) g/dL Critical Care Time Critical Care Time: Yes Critical Care Time: 31 minutes of critical care, which includes initial presentation with history physical labs x-rays multiple reevaluation the patient response to therapy discuss with the admitting physician review of old charting was available admission orders and documentation of the above Disposition Clinical Impression: Atrial fibrillation with rapid ventricular response, Bronchitis, Acute exac erbation of chronic obstructive pulmonary disease, Edema Disposition: ADMITTED IP TO THIS HOSP Condition: Fair Referrals: Trevor Hamilton MD [Primary Care Provider] - 1-2 days
[2019-04-04] MEDS ORDERED: NITROGLYCERIN SL TABS 0.4 MG TAB SUBLINGUAL PRN (20:26)
[2019-04-04] MEDS ORDERED: SODIUM CHLORIDE 0.9% 500 ML 500 ML IV STA (20:34)
[2019-04-04] MEDS ORDERED: IPRATROPIUM-ALBUTEROL 3 ML NEB INHALATION PRN (20:54)
[2019-04-04] MEDS: DILTIAZEM 125 MG in SODIUM CHLORIDE 0.9% 100 ML IV SCH ×2 (21:18→22:34)
[2019-04-04] MEDS: MONTELUKAST 10 MG TAB PO SCH (21:23)
[2019-04-04] MEDS ORDERED: IPRATROPIUM-ALBUTEROL 3 ML NEB INHALATION SCH (22:00)
[2019-04-04] MEDS: MORPHINE SULFATE ER 60 MG TABLET PO SCH (22:24)
[2019-04-04] MEDS: oxyCODONE-APAP 10-325MG 1 EACH TAB PO PRN (22:33)
[2019-04-04] MEDS: clonazePAM 0.5 MG TAB PO SCH (22:33)
[2019-04-04] MEDS: PREGABALIN 50 MG CAP PO SCH (22:34)
[2019-04-04] MEDS: NYSTATIN 100,000UNIT/GM CREAM 30 GM TUBE TOPICAL SCH (22:44)
[2019-04-04] MEDS: methylPREDNISolone SOD SUCCI 125 MG/2 ML VIAL IV SCH (22:59)
[2019-04-05] MEDS ORDERED: IPRATROPIUM-ALBUTEROL 3 ML NEB INHALATION SCH
[2019-04-05 04:58] LABS: Appearance,Urine Clear (Clear); Bilirubin,Urine Negative (Negative); Blood,Urine Negative (Negative); Color,Urine Yellow; Glucose,Urine (UA) 4+ (Negative); Ketones,Urine Negative (Negative); Leukocyte Esterase,Urine Negative (Negative); Nitrite,Urine Negative (Negative); Protein,Urine Negative (Negative); Specific Gravity,Urine 1.023 (1.001-1.035); Urobilinogen,Urine <2.0 mg/dL (<2.0)
[2019-04-05] MEDS: methylPREDNISolone SOD SUCCI 125 MG/2 ML VIAL IV SCH ×3 (06:12→17:02)
[2019-04-05] MEDS: LEVOTHYROXINE 50 MCG TAB PO SCH (06:12)
[2019-04-05] MEDS: DIGOXIN 125 MCG TAB PO SCH (06:12)
[2019-04-05 06:18] LABS: Glucose,Whole Blood 335 mg/dL (75-99)
[2019-04-05] MEDS: INSULIN ASPART (NovoLOG) 100 UNIT/ML VIAL SQ SCH ×4 (06:25→20:23)
[2019-04-05] MEDS: IPRATROPIUM-ALBUTEROL 3 ML NEB INHALATION SCH ×4 (07:54→20:38)
[2019-04-05] MEDS ORDERED: NICOTINE 14MG/24HR PATCH TRANSDERM SCH (08:00)
[2019-04-05] MEDS: NYSTATIN 100,000UNIT/GM CREAM 30 GM TUBE TOPICAL SCH ×2 (08:04→20:17)
[2019-04-05] MEDS: MORPHINE SULFATE ER 60 MG TABLET PO SCH ×3 (08:11→20:19)
[2019-04-05] MEDS: SPIRONOLACTONE 25 MG TAB PO SCH (08:11)
[2019-04-05] MEDS: clonazePAM 0.5 MG TAB PO SCH (08:11)
[2019-04-05] MEDS: DILTIAZEM CD 240 MG CAP.ER.24H PO SCH (08:12)
[2019-04-05] MEDS: METOPROLOL TARTRATE 25 MG TAB PO SCH ×2 (08:12→17:02)
[2019-04-05] MEDS: PREGABALIN 50 MG CAP PO SCH ×2 (08:12→20:16)
[2019-04-05] MEDS: TAMSULOSIN 0.4 MG CAP.ER.24H PO SCH (08:12)
[2019-04-05] MEDS: DULoxetine HCL 60 MG CAPSULE.DR PO SCH (08:12)
[2019-04-05] MEDS ORDERED: clonazePAM 1 MG TAB PO SCH (09:00)
[2019-04-05] MEDS ORDERED: LISINOPRIL 10 MG TAB PO SCH (10:45)
[2019-04-05] MEDS ORDERED: PREGABALIN 150 MG PO SCH (10:45)
[2019-04-05 11:18] LABS: T4, Free (Free Thyroxine) 0.91 ng/dL (0.78-2.19)
[2019-04-05] MEDS: POLYETHYLENE GLYCOL 3350 17 GM POWD.PACK PO SCH (11:31)
[2019-04-05 11:36] VITALS: BMI 32.8
[2019-04-05] MEDS: oxyCODONE-APAP 10-325MG 1 EACH TAB PO PRN (11:40)
[2019-04-05 11:57] LABS: Glucose,Whole Blood 130 mg/dL (75-99)
[2019-04-05] MEDS ORDERED: FUROSEMIDE 20 MG TAB PO SCH (14:00)
[2019-04-05] MEDS ORDERED: FUROSEMIDE 20 MG TAB PO STA (15:08)
--- NOTE | 2019-04-05 15:16 | P.CRDCN ---
History of Present Illness History of present illness: This is Jie Streeter PA-C dictating a consult on this patient The patient was interviewed and examined by me as well as by Dr. Ferguson Case discussed with Dr. Ferguson and he agrees with the plan of care IMPRESSION / ASSESSMENT: Worsening shortness of breath with productive cough, likely secondary to acute COPD exacerbation vs possible CHF exacerbation due to diastolic dysfunction Paroxysmal atrial fibrillation with RVR, anticoagulated with Xarelto, currently in sinus rhythm Hypertension, blood pressure is been elevated Dyslipidemia TSH suppressed Previous echocardiogram showing preserved LV systolic function PLAN: Increase Lasix to 40 mg twice daily Increase lisinopril to 20 daily for blood pressure control Continue aspirin and atorvastatin Continue spironolactone Continue metoprolol and Cardizem for rate control Anticoagulation with Xarelto monitor BMP Monitor intake and output, daily weights Management of abnormal TSH by primary care team HPI Patient is a 63-year-old female with a past medical history of paroxysmal atrial fibrillation, COPD, hypertension, dyslipidemia, prior CVA who was sent for further evaluation by her primary care doctor. She follows with Dr. Silva in the office. She has had worsening shortness of breath and productive cough with green and yellow sputum. Denies any recent fevers or chills. She also notes increased lower extremity edema. Denies any chest pain. Upon presentation her chest x-ray showed no acute process. EKG showed atrial fibrillation with ventricular rate 107. Labs are significant for an elevated lactic acid. Troponin was normal. BNP was 671. She was started on a Cardizem drip and converted to sinus rhythm. Patient seen and examined resting in bed. States her breathing has improved somewhat but she is still coughing. Denies any palpitations or dizziness. No chest pain. ROS: No fevers, chills or rigors, Positive for productive cough no nausea, vomiting or diarrhea, no hematuria, dysuria, no musculoskeletal complaints, Positive for history of stroke no skin lesions. EXAMINATION: Patient is afebrile, pulse in the 80s, respirations 18, blood pressure 149/76, oxygen saturation 97% on 3 L nasal cannula Patient seen and examined resting in bed, in no acute distress Lungs are rhonchorous bilaterally Heart is regular, normal S1-S2, no murmurs noted Mild lower extremity edema bilaterally REVIEW OF LABS, ECG & MEDICAL DATA WBC 10.5, hemoglobin 11.7, platelets 207, potassium 4.5, BUN 16, creatinine 0.58 Previous echocardiogram in December 2018 showed preserved LV systolic function, moderate concentric LVH, moderate to severe MR Past Medical History Past Medical History: Atrial Fibrillation, COPD, CVA/TIA, Hyperlipidemia, Hypertension, Memory Impairment, Pulmonary Embolus (PE), Thyroid Disorder Additional Past Medical History / Comment(s): CVA WITH LEFT SIDED EYE DROOP, NUMBNESS ALAN FINGERS, LEFT LEG SWELLING, DDD, SPINAL STENOSIS, severe mitral and moderate tricuspid valve regurgitation; memory impairment (short term per ) History of Any Multi-Drug Resistant Organisms: None Reported Past Surgical History: Back Surgery Additional Past Surgical History / Comment(s): d&c's, ALAN CATARACT SX Past Anesthesia/Blood Transfusion Reactions: No Reported Reaction Additional Past Anesthesia/Blood Transfusion Reaction / Comment(s): "anesthesia took more than usual, I didn't go under" Smoking Status: Former smoker - Past Family History Sister(s) Family Medical History: Cancer Additional Family Medical History / Comment(s): breast Medications and Allergies Home Medications Medication Instructions Recorded Confirmed Type Simvastatin [Zocor] 20 mg PO HS 06/06/14 04/04/19 History DULoxetine HCL [Cymbalta] 60 mg PO DAILY 07/22/17 04/04/19 History Levothyroxine Sodium [Synthroid] 50 mcg PO DAILY 07/22/17 04/04/19 History Rivaroxaban [Xarelto] 20 mg PO HS 07/22/17 04/04/19 History Ipratropium-Albuterol Nebulize 3 ml INHALATION RT-QID 06/01/18 04/04/19 History [Duoneb 0.5 mg-3 mg/3 ml Soln] Polyethylene Glycol 3350 [Miralax] 17 gm PO DAILY PRN 12/30/18 04/04/19 History Tamsulosin [Flomax] 0.4 mg PO DAILY 12/30/18 04/04/19 History Nitroglycerin Sl Tabs [Nitrostat] 0.4 mg SUBLINGUAL Q5M PRN tab 01/15/19 04/04/19 Rx Aspirin 81 mg PO DAILY@1700 01/16/19 04/04/19 History Budesonide-Formot 160-4.5 Mcg 2 puff INHALATION RT-BID 01/16/19 04/04/19 History [Symbicort 160-4.5 Mcg Inhaler] Digoxin [Lanoxin] 125 mcg PO DAILY 01/16/19 04/04/19 History Diltiazem Cd [Cardizem CD] 240 mg PO DAILY 01/16/19 04/04/19 History predniSONE 10 mg PO DAILY 01/16/19 04/04/19 History oxyCODONE-APAP 10-325MG [Percocet 1 tab PO BID PRN #6 tab 01/18/19 04/04/19 Rx 10-325 mg] Azithromycin [Zithromax] 250 mg PO MOWEFR 04/04/19 04/04/19 History Furosemide [Lasix] 20 mg PO DAILY@1400 04/04/19 04/04/19 History Furosemide [Lasix] 40 mg PO DAILY@0800 04/04/19 04/04/19 History Lisinopril [Zestril] 10 mg PO DAILY 04/04/19 04/04/19 History Montelukast [Singulair] 10 mg PO HS 04/04/19 04/04/19 History Morphine Sulfate ER [Ms Contin] 60 mg PO Q8H 04/04/19 04/04/19 History Pregabalin [Lyrica] 150 mg PO BID 04/04/19 04/04/19 History clonazePAM [KlonoPIN] 1 mg PO HS 04/04/19 04/04/19 History clonazePAM [KlonoPIN] 2 mg PO DAILY@0900 04/04/19 04/04/19 History Allergies Allergy/AdvReac Type Severity Reaction Status Date / Time amoxicillin trihydrate Allergy Rash/Hives Verified 04/04/19 20:51 [From Augmentin] cefaclor [From Ceclor] Allergy Rash/Hives Verified 04/04/19 17:26 Iodinated Contrast Media Allergy Throat Verified 04/04/19 17:26 [Iodinated Contrast Media - Swelling IV Dye] Penicillins Allergy Rash/Hives Verified 04/04/19 17:26 potassium clavulanate Allergy Rash/Hives Verified 04/04/19 17:26 [From Augmentin] Physical Exam Vitals: Vital Signs Temp Pulse Pulse Resp BP BP Pulse Ox 04/05/19 12:07 88 04/05/19 12:00 97.9 F 86 18 149/76 97 04/05/19 11:48 87 04/05/19 08:25 98 04/05/19 08:10 87 04/05/19 07:58 97.5 F L 98 18 166/74 99 04/05/19 07:57 85 04/05/19 05:01 88 04/05/19 04:54 84 04/05/19 03:08 98 F 95 17 140/63 95 04/04/19 23:50 98 F 113 H 17 142/64 94 L 04/04/19 21:28 97 18 134/61 96 04/04/19 20:58 104 H 18 04/04/19 20:49 99 18 04/04/19 18:44 97 18 112/67 98 04/04/19 18:08 114 H 18 04/04/19 17:56 112 H 20 04/04/19 17:30 25 H 04/04/19 17:27 98.0 F 98 20 127/58 96 Intake and Output 04/05/19 04/05/19 04/05/19 06:59 14:59 22:59 Intake Total 240 10 Output Total 250 Balance -10 10 Intake: IV 10 0.9 10 Oral 240 Output: Urine 250 Other: # Voids 1 Weight 81.6 kg 81.6 kg Results 04/04/19 17:44 04/04/19 17:44 Cardiac Enzymes 04/04/19 04/04/19 Range/Units 17:44 17:44 AST 25 (14-36) U/L Troponin I <0.012 (0.000-0.034) ng/mL Coagulation 04/04/19 Range/Units 17:44 PT 10.1 (9.0-12.0) sec APTT 22.0 (22.0-30.0) sec CBC 04/04/19 Range/Units 17:44 WBC 10.5 (3.8-10.6) k/uL RBC 4.10 (3.80-5.40) m/uL Hgb 10.7 L (11.4-16.0) gm/dL Hct 35.5 (34.0-46.0) % Plt Count 207 (150-450) k/uL Comprehensive Metabolic Panel 04/04/19 Range/Units 17:44 Sodium 137 (137-145) mmol/L Potassium 4.5 (3.5-5.1) mmol/L Chloride 97 L (98-107) mmol/L Carbon Dioxide 34 H (22-30) mmol/L BUN 16 (7-17) mg/dL Creatinine 0.58 (0.52-1.04) mg/dL Glucose 159 H (74-99) mg/dL Calcium 8.9 (8.4-10.2) mg/dL AST 25 (14-36) U/L ALT 20 (4-34) U/L Alkaline Phosphatase 91 (38-126) U/L Total Protein 6.4 (6.3-8.2) g/dL Albumin 3.7 (3.5-5.0) g/dL Current Medications Generic Name Dose Route Start Last Admin Trade Name Freq PRN Reason Stop Dose Admin Albuterol/Ipratropium 3 ml 04/04/19 22:00 04/05/19 11:47 Duoneb 0.5 Mg-3 Mg/3 Ml Soln INHALATION 3 ml RT-QID ROCHELLE Administration Albuterol/Ipratropium 3 ml 04/04/19 20:54 04/05/19 04:53 Duoneb 0.5 Mg-3 Mg/3 Ml Soln INHALATION 3 ml RT-Q2H PRN Administration Shortness Of Breath Or Wheezing Aspirin 81 mg 04/05/19 17:00 Aspirin PO DAILY@1700 [facility] Atorvastatin Calcium 10 mg 04/05/19 17:00 Lipitor PO DAILY@1700 [facility] Budesonide/Formoterol Fumarate 2 puff 04/05/19 20:00 Symbicort 160-4.5 Mcg Inhaler INHALATION RT-BID [facility] Clonazepam 1 mg 04/05/19 21:00 Klonopin PO HS [facility] Clonazepam 2 mg 04/06/19 09:00 Klonopin PO DAILY@0900 [facility] Digoxin 125 mcg 04/05/19 06:00 04/05/19 06:12 Lanoxin PO 125 mcg DAILY@0600 [facility] Administration Diltiazem HCl 240 mg 04/05/19 08:00 04/05/19 08:12 Cardizem Cd PO 240 mg DAILY@0800 [facility] Administration Duloxetine HCl 60 mg 04/05/19 09:00 04/05/19 08:12 Cymbalta PO 60 mg DAILY [facility] Administration Furosemide 40 mg 04/06/19 08:00 Lasix PO DAILY@0800 [facility] Furosemide 40 mg 04/06/19 14:00 Lasix PO DAILY@1400 [facility] Insulin Aspart 0 unit 04/05/19 07:30 04/05/19 11:46 Novolog SQ Not Given [facility] Protocol Levothyroxine Sodium 50 mcg 04/05/19 06:00 04/05/19 06:12 Synthroid PO 50 mcg DAILY@0600 [facility] Administration Lisinopril 20 mg 04/06/19 09:00 Zestril PO DAILY [facility] Methylprednisolone Sodium Succinate 60 mg 04/05/19 00:00 04/05/19 11:37 Solu-Medrol IV 60 mg Q6HR [facility] Administration Metoprolol Tartrate 25 mg 04/05/19 08:00 04/05/19 08:12 Lopressor PO 25 mg BID@0800,1700 [facility] Administration Montelukast Sodium 10 mg 04/04/19 21:00 04/04/19 21:23 Singulair PO 10 mg HS [facility] Administration Morphine Sulfate 60 mg 04/04/19 21:00 04/05/19 08:11 Ms Contin PO 60 mg Q12HR [facility] Administration Nitroglycerin 0.4 mg 04/04/19 20:26 Nitrostat SUBLINGUAL Q5M PRN Chest Pain Nystatin 1 applic 04/04/19 21:00 04/05/19 08:04 Mycostatin Cream TOPICAL Not Given BID [facility] Oxycodone/Acetaminophen 1 each 04/04/19 20:26 04/05/19 11:40 Percocet 10-325 PO 1 each BID PRN Administration [facility] Polyethylene Glycol 17 gm 04/05/19 08:00 04/05/19 11:31 Miralax PO Not Given DAILY@0800 [facility] Pregabalin 150 mg 04/04/19 21:00 04/05/19 08:12 Lyrica PO 150 mg BID@0800,2100 [facility] Administration Rivaroxaban 20 mg 04/05/19 17:00 Xarelto PO DAILY@1700 [facility] Spironolactone 25 mg 04/05/19 08:00 04/05/19 08:11 Aldactone PO 25 mg DAILY@0800 [facility] Administration Tamsulosin HCl 0.4 mg 04/05/19 08:00 04/05/19 08:12 Flomax PO 0.4 mg DAILY@0800 [facility] Administration Intake and Output 04/05/19 04/05/19 04/05/19 06:59 14:59 22:59 Intake Total 240 10 Output Total 250 Balance -10 10 Intake: IV 10 0.9 10 Oral 240 Output: Urine 250 Other: # Voids 1 Weight 81.6 kg 81.6 kg Patient Weight 04/06/19 06:59 Weight 81.6 kg 04/04/19 17:44 04/04/19 17:44
[2019-04-05 17:01] LABS: Glucose,Whole Blood 250 mg/dL (75-99)
[2019-04-05] MEDS: ASPIRIN 81 MG PO SCH (17:02)
[2019-04-05] MEDS: ATORVASTATIN 10 MG TAB PO SCH (17:02)
[2019-04-05] MEDS: RIVAROXABAN 20 MG TAB PO SCH (17:02)
[2019-04-05] MEDS ORDERED: SYMBICORT 160-4.5 MCG INHALER INHALATION SCH (20:00)
[2019-04-05] MEDS: clonazePAM 1 MG TAB PO SCH (20:16)
[2019-04-05] MEDS: MONTELUKAST 10 MG TAB PO SCH (20:17)
[2019-04-05 20:22] LABS: Glucose,Whole Blood 221 mg/dL (75-99)
[2019-04-05] MEDS: FORMOTEROL FUMARATE 20 MCG/2 ML NEBU INHALATION SCH (20:40)
[2019-04-05] MEDS: BUDESONIDE 1 MG/2 ML NEBU INHALATION SCH (20:40)
--- NOTE | 2019-04-05 20:44 | P.HPIM ---
History of Present Illness H&P Date: 04/05/19 Chief Complaint: Short of breath History of present complaint: This is a pleasant 63-year-old patient of Dr. Trevor Hamilton. 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 Chronic stable medical conditions include hypertension, hyperlipidemia, mild cognitive impairment, hypothyroid, spinal stenosis, osteoarthritis, severe mitral and moderate tricuspid valve regurgitation. Paroxysmal atrial fibrillation . Patient now presents for close to 2 weeks if symptoms progressively getting short of breath cough thick yellow sputum. Not running into green. Also having chills and some fever. Poor appetite edema to the other chronic. Wheezing. Admitted for the same. Review of systems: GEN.: Tired, chills EYES: None HEENT: None NECK: None RESPIRATORY: As above CARDIOVASCULAR: None GASTROINTESTINAL: None GENITOURINARY: None MUSCULOSKELETAL: Pain in joints LYMPHATICS: None HEMATOLOGICAL: None PSYCHIATRY: Anxious NEUROLOGICAL: None Past medical history to include: Hypertension, hyperlipidemia, mild cognitive impairment, hypothyroid, spinal stenosis, osteoarthritis, severe mitral and moderate tricuspid valve regurgitation, paroxysmal atrial fibrillation Social history: smoked half a pack a day for over 45 years until about 3 months ago.. Physical examination: VITAL SIGNS: 98, 98, 20, 127/58, 96% on 3.5 L GENERAL: BMI 22.9, sitting in the edge of the bed, short of breath EYES: Pupils equal. Conjunctiva pale HEENT: External appearance of nose and ears normal, oral cavity normal NECK: JVD not raised; masses not palpable. HEART: Heart sounds regular, edema present. LUNGS: Respiratory rate increased, diminished breath sounds prolonged expiration, accessory muscles the working, not able to speak in full sentences ABDOMEN: Soft, nontender, liver spleen not palpable, no masses palpable. PSYCH: Alert and oriented x3; mood and affect anxious NEUROLOGICAL: Cranial nerves grossly intact; no facial asymmetry, power and sensation grossly intact. LYMPHATICS: No lymph nodes palpable in the axilla and neck DERMATOLOGICAL: Diffuse bruising INVESTIGATIONS, reviewed in the clinical context: White count 10.5 hemoglobin 10.7 platelets 207 progression 4.5 creatinine 0.58 Lactic acid 2.7 proBNP 631 EKG tracing personally reviewed by me-atrial fibrillation, rate 107 Checks x-ray film personally reviewed by me shows possible atelectasis Assessment: -Acute severe COPD exacerbation in a X smoker -Acute tracheal bronchitis -Acute hypoxic respiratory failure from COPD exacerbation -Persistent atrial fibrillation, rate uncontrolled presentation -Hyperlipidemia -Essential hypertension -Mild cognitive impairment -Hypothyroid -Chronic anxiety depression otherwise specified -Chronic gait dysfunction uses a cane and a walker Plan: Patient started on nebulized bronchodilators every 4 hours, IV Solu-Medrol, inhaled steroids and performarist. Both cardiology and pulmonary were consulted. Care was discussed with the patient. By mouth Levaquin. Home medications resumed. Antoine wraps to both lower extremity. Expect the patient to be in the hospital for at least 2 nights Past Medical History Past Medical History: Atrial Fibrillation, COPD, CVA/TIA, Hyperlipidemia, Hypertension, Memory Impairment, Pulmonary Embolus (PE), Thyroid Disorder Additional Past Medical History / Comment(s): CVA WITH LEFT SIDED EYE DROOP, NUMBNESS ALAN FINGERS, LEFT LEG SWELLING, DDD, SPINAL STENOSIS, severe mitral and moderate tricuspid valve regurgitation; memory impairment (short term per ) History of Any Multi-Drug Resistant Organisms: None Reported Past Surgical History: Back Surgery Additional Past Surgical History / Comment(s): d&c's, ALAN CATARACT SX Past Anesthesia/Blood Transfusion Reactions: No Reported Reaction Additional Past Anesthesia/Blood Transfusion Reaction / Comment(s): "anesthesia took more than usual, I didn't go under" Smoking Status: Former smoker - Past Family History Sister(s) Family Medical History: Cancer Additional Family Medical History / Comment(s): breast Medications and Allergies Home Medications Medication Instructions Recorded Confirmed Type Simvastatin [Zocor] 20 mg PO HS 06/06/14 04/04/19 History DULoxetine HCL [Cymbalta] 60 mg PO DAILY 07/22/17 04/04/19 History Levothyroxine Sodium [Synthroid] 50 mcg PO DAILY 07/22/17 04/04/19 History Rivaroxaban [Xarelto] 20 mg PO HS 07/22/17 04/04/19 History Ipratropium-Albuterol Nebulize 3 ml INHALATION RT-QID 06/01/18 04/04/19 History [Duoneb 0.5 mg-3 mg/3 ml Soln] Polyethylene Glycol 3350 [Miralax] 17 gm PO DAILY PRN 12/30/18 04/04/19 History Tamsulosin [Flomax] 0.4 mg PO DAILY 12/30/18 04/04/19 History Nitroglycerin Sl Tabs [Nitrostat] 0.4 mg SUBLINGUAL Q5M PRN tab 01/15/19 04/04/19 Rx Aspirin 81 mg PO DAILY@1700 01/16/19 04/04/19 History Budesonide-Formot 160-4.5 Mcg 2 puff INHALATION RT-BID 01/16/19 04/04/19 History [Symbicort 160-4.5 Mcg Inhaler] Digoxin [Lanoxin] 125 mcg PO DAILY 01/16/19 04/04/19 History Diltiazem Cd [Cardizem CD] 240 mg PO DAILY 01/16/19 04/04/19 History predniSONE 10 mg PO DAILY 01/16/19 04/04/19 History oxyCODONE-APAP 10-325MG [Percocet 1 tab PO BID PRN #6 tab 01/18/19 04/04/19 Rx 10-325 mg] Azithromycin [Zithromax] 250 mg PO MOWEFR 04/04/19 04/04/19 History Furosemide [Lasix] 20 mg PO DAILY@1400 04/04/19 04/04/19 History Furosemide [Lasix] 40 mg PO DAILY@0800 04/04/19 04/04/19 History Lisinopril [Zestril] 10 mg PO DAILY 04/04/19 04/04/19 History Montelukast [Singulair] 10 mg PO HS 04/04/19 04/04/19 History Morphine Sulfate ER [Ms Contin] 60 mg PO Q8H 04/04/19 04/04/19 History Pregabalin [Lyrica] 150 mg PO BID 04/04/19 04/04/19 History clonazePAM [KlonoPIN] 1 mg PO HS 04/04/19 04/04/19 History clonazePAM [KlonoPIN] 2 mg PO DAILY@0900 04/04/19 04/04/19 History Allergies Allergy/AdvReac Type Severity Reaction Status Date / Time amoxicillin trihydrate Allergy Rash/Hives Verified 04/04/19 20:51 [From Augmentin] cefaclor [From Ceclor] Allergy Rash/Hives Verified 04/04/19 17:26 Iodinated Contrast Media Allergy Throat Verified 04/04/19 17:26 [Iodinated Contrast Media - Swelling IV Dye] Penicillins Allergy Rash/Hives Verified 04/04/19 17:26 potassium clavulanate Allergy Rash/Hives Verified 04/04/19 17:26 [From Augmentin] Physical Exam Vitals: Vital Signs Temp Pulse Pulse Resp BP BP Pulse Ox 04/05/19 08:25 98 04/05/19 08:10 87 04/05/19 07:58 97.5 F L 98 18 166/74 99 04/05/19 07:57 85 04/05/19 05:01 88 04/05/19 04:54 84 04/05/19 03:08 98 F 95 17 140/63 95 04/04/19 23:50 98 F 113 H 17 142/64 94 L 04/04/19 21:28 97 18 134/61 96 04/04/19 20:58 104 H 18 04/04/19 20:49 99 18 04/04/19 18:44 97 18 112/67 98 04/04/19 18:08 114 H 18 04/04/19 17:56 112 H 20 04/04/19 17:30 25 H 04/04/19 17:27 98.0 F 98 20 127/58 96 Intake and Output 04/04/19 04/05/19 04/05/19 22:59 06:59 14:59 Output Total 250 Balance -250 Output: Urine 250 Other: # Voids 1 Weight 83.915 kg 81.6 kg Results CBC & Chem 7: 04/04/19 17:44 04/04/19 17:44 Labs: Abnormal Lab Results - Last 24 Hours (Table) 04/04/19 04/04/19 04/04/19 Range/Units 17:44 17:44 17:44 Hgb 10.7 L (11.4-16.0) gm/dL MCHC 30.1 L (31.0-37.0) g/dL RDW 18.3 H (11.5-15.5) % Neutrophils # 9.0 H (1.3-7.7) k/uL Lymphocytes # 0.7 L (1.0-4.8) k/uL Chloride 97 L (98-107) mmol/L Carbon Dioxide 34 H (22-30) mmol/L Glucose 159 H (74-99) mg/dL POC Glucose (mg/dL) (75-99) mg/dL Plasma Lactic Acid Shailesh 2.7 H* (0.7-2.0) mmol/L TSH (0.465-4.680) mIU/L Urine Glucose (UA) (Negative) 04/04/19 04/05/19 04/05/19 Range/Units 22:04 02:23 04:30 Hgb (11.4-16.0) gm/dL MCHC (31.0-37.0) g/dL RDW (11.5-15.5) % Neutrophils # (1.3-7.7) k/uL Lymphocytes # (1.0-4.8) k/uL Chloride (98-107) mmol/L Carbon Dioxide (22-30) mmol/L Glucose (74-99) mg/dL POC Glucose (mg/dL) (75-99) mg/dL Plasma Lactic Acid Shailesh 2.9 H* 2.1 H* (0.7-2.0) mmol/L TSH (0.465-4.680) mIU/L Urine Glucose (UA) 4+ H (Negative) 04/05/19 04/05/19 04/05/19 Range/Units 06:16 07:13 07:13 Hgb (11.4-16.0) gm/dL MCHC (31.0-37.0) g/dL RDW (11.5-15.5) % Neutrophils # (1.3-7.7) k/uL Lymphocytes # (1.0-4.8) k/uL Chloride (98-107) mmol/L Carbon Dioxide (22-30) mmol/L Glucose (74-99) mg/dL POC Glucose (mg/dL) 335 H (75-99) mg/dL Plasma Lactic Acid Shailesh 2.4 H* (0.7-2.0) mmol/L TSH 0.202 L (0.465-4.680) mIU/L Urine Glucose (UA) (Negative) Thrombosis Risk Factor Assmnt - Choose All That Apply Any of the Below Risk Factors Present?: Yes Each Factor Represents 1 point: Abnormal pulmonary function (COPD), Obesity (BMI >25), Swollen legs (current) Other Risk Factors: Yes Each Risk Factor Represents 2 Points: Age 61-74 years Other congenital or acquired thrombophilia - If yes, enter type in comment: No Thrombosis Risk Factor Assessment Total Risk Factor Score: 5 Thrombosis Risk Factor Assessment Level: High Risk
[2019-04-05] MEDS: methylPREDNISolone SOD SUCCI 40 MG/ML 1 ML VIAL IV SCH (23:31)
[2019-04-06] MEDS: IPRATROPIUM-ALBUTEROL 3 ML NEB INHALATION SCH ×7 (00:38→23:01)
[2019-04-06 06:11] LABS: Glucose,Whole Blood 263 mg/dL (75-99)
[2019-04-06] MEDS: LEVOTHYROXINE 50 MCG TAB PO SCH (06:41)
[2019-04-06] MEDS: INSULIN ASPART (NovoLOG) 100 UNIT/ML VIAL SQ SCH ×4 (06:41→20:39)
[2019-04-06] MEDS: DIGOXIN 125 MCG TAB PO SCH (06:41)
[2019-04-06 07:22] LABS: African American GFR (CKD) >90 (>60 ml/min/1.73 sqM); Anion Gap 3 mmol/L; Blood Urea Nitrogen 27 mg/dL (7-17); Carbon Dioxide 38 mmol/L (22-30); Chloride 95 mmol/L (98-107); Glucose 238 mg/dL (74-99); Non-African American GFR(CKD) >90 (>60 ml/min/1.73 sqM); Potassium 4.9 mmol/L (3.5-5.1); Sodium 136 mmol/L (137-145)
[2019-04-06] MEDS: BUDESONIDE 1 MG/2 ML NEBU INHALATION SCH ×2 (08:07→19:02)
[2019-04-06] MEDS: FORMOTEROL FUMARATE 20 MCG/2 ML NEBU INHALATION SCH ×2 (08:07→19:02)
[2019-04-06] MEDS: FUROSEMIDE 20 MG TAB PO SCH (09:26)
[2019-04-06] MEDS: clonazePAM 1 MG TAB PO SCH ×2 (09:26→20:39)
[2019-04-06] MEDS: DILTIAZEM CD 240 MG CAP.ER.24H PO SCH (09:26)
[2019-04-06] MEDS: MORPHINE SULFATE ER 60 MG TABLET PO SCH ×2 (09:27→20:40)
[2019-04-06] MEDS: LISINOPRIL 20 MG TAB PO SCH (09:27)
[2019-04-06] MEDS: DULoxetine HCL 60 MG CAPSULE.DR PO SCH (09:28)
[2019-04-06] MEDS: METOPROLOL TARTRATE 25 MG TAB PO SCH ×2 (09:28→15:33)
[2019-04-06] MEDS: methylPREDNISolone SOD SUCCI 40 MG/ML 1 ML VIAL IV SCH ×2 (09:29→15:33)
[2019-04-06] MEDS: NYSTATIN 100,000UNIT/GM CREAM 30 GM TUBE TOPICAL SCH ×2 (09:30→20:42)
[2019-04-06] MEDS: SPIRONOLACTONE 25 MG TAB PO SCH (09:34)
[2019-04-06] MEDS: TAMSULOSIN 0.4 MG CAP.ER.24H PO SCH (09:34)
[2019-04-06] MEDS: PREGABALIN 50 MG CAP PO SCH ×2 (09:34→20:41)
[2019-04-06] MEDS: POLYETHYLENE GLYCOL 3350 17 GM POWD.PACK PO SCH (09:34)
[2019-04-06 12:16] LABS: Glucose,Whole Blood 182 mg/dL (75-99)
[2019-04-06] MEDS ORDERED: FUROSEMIDE 40 MG TAB PO SCH (14:00)
[2019-04-06] MEDS: oxyCODONE-APAP 10-325MG 1 EACH TAB PO PRN (15:33)
[2019-04-06] MEDS: ASPIRIN 81 MG PO SCH (15:34)
[2019-04-06] MEDS: ATORVASTATIN 10 MG TAB PO SCH (15:34)
[2019-04-06] MEDS: RIVAROXABAN 20 MG TAB PO SCH (15:35)
--- NOTE | 2019-04-06 16:17 | CONS ---
CONSULTATION PULMONARY/CRITICAL CARE CONSULTATION: DATE OF SERVICE: 04/06/2019 REASON FOR CONSULTATION: Shortness of breath and atrial fibrillation with RVR. This is a 63-year-old female who sees my partner Dr. Simpson for her COPD. She also has a history of atrial fibrillation. She apparently was seen by her doctor in the daytime and sent to the emergency room for further evaluation. She apparently had significant weight gain over the last week or so. She gained about 20 pounds. In addition, she complains of being short of breath and having a cough. The cough was occasionally productive of yellow phlegm. She denies any fever or chills. Her shortness of breath that she had was exertional in nature. She does not admit to any palpitations or rapid heartbeat. Her primary care physician apparently thought she was in atrial fibrillation with RVR, which is why she was sent to the emergency room. She believes her primary problem was a lung issue, and that atrial fibrillation was a result of that. She did complain of lower extremity edema. Again, she denies any fever or chills. No chest pain or chest discomfort. No nausea, vomiting, diarrhea. No genitourinary complaints. The patient's primary care physician is Dr. Trevor Hamilton [facility] in [place]. HOME MEDICATIONS: Current, her home medications include Zocor, Cymbalta, Synthroid, Xarelto, Ventolin inhaler, DuoNeb, nystatin, MiraLAX, Aldactone, Flomax, aspirin, Dulcolax, Symbicort, digoxin, Cardizem CD, milk of magnesia, metoprolol, Fleet's enema, nicotine patch and prednisone. Other medications are listed. ALLERGIES: Current allergies are reviewed. She is ALLERGIC TO AMOXICILLIN, CEFACLOR, IVP DYE, PENICILLIN AND CLAVULANATE. PAST MEDICAL HISTORY: Her past medical history includes atrial fibrillation, COPD from previous tobacco use, hyperlipidemia, CVA, hypertension, memory impairment, pulmonary embolism and hypothyroidism. Other medical problems include bilateral finger numbness, lower extremity edema, degenerative disc disease, spinal stenosis, severe mitral and moderate tricuspid valve regurgitation and some other minor medical problems. SURGICAL HISTORY: Surgical history includes back surgery, D&C, bilateral cataract surgery. SOCIAL HISTORY: Positive for previous tobacco use. She does not smoke currently. She was a heavy smoker in the past. She denies any alcohol or illicit drug use. FAMILY HISTORY: Positive for sister with breast cancer. REVIEW OF SYSTEMS: CONSTITUTIONAL: Negative. NEUROLOGIC: Negative. HEENT: Negative. CARDIOVASCULAR: Atrial fibrillation with RVR, weight gain. PULMONARY: Shortness of breath, cough, yellow-green phlegm production. GI: Negative. : Negative. RHEUMATOLOGIC: Negative. IMMUNOLOGIC: Negative. ENDOCRINOLOGIC: Negative. DERMATOLOGIC: Negative. PHYSICAL EXAMINATION: VITAL SIGNS: Current vital signs are reviewed. Temperature is 98.4, heart rate 80, respiratory rate 18, blood pressure 132/62, mean 85, 3-liter saturation 93%. GENERAL APPEARANCE: Appears in no acute distress. HEENT EXAMINATION: Grossly unremarkable. Mucous membranes are moist. No oral lesions. NECK: Supple. Full range of motion. No adenopathy or thyromegaly. Neck veins are flat. CARDIOVASCULAR EXAMINATION: Regular rhythm and rate. S1, S2 normal. No S3, S4 or murmur. Cardizem drip has been turned off. LUNGS: Lungs reveal mostly clear breath sounds. A few scattered rhonchi. Some mild expiratory wheezes. Breath sounds equal bilaterally. No crackles. ABDOMEN: Soft but obese. Bowel sounds are heard. EXTREMITIES: Intact. Mild edema. No cyanosis or clubbing. SKIN: Without rash. NEUROLOGIC: Neurologic examination is brief but nonfocal. IMAGING: Chest x-ray from the 04/04 shows some atelectasis at the lung bases. There may be some mild heart failure, but overall the chest x-ray is improved. LABS: Reviewed. White count 10.5, hemoglobin 10.7, hematocrit 35.5, platelet count 207,000. PT, INR, PTT normal. Sodium 136, potassium 4.9, chloride 95, CO2 38. Anion gap is 3. BUN and creatinine were 27 and 0.49. Lactic acid was 2.9 and 2.4. The rest of the comprehensive metabolic profile, including troponin levels, is normal. Urine was negative. Medications are reviewed. ASSESSMENT: 1. Atrial fibrillation with rapid ventricular response. 2. Chronic obstructive pulmonary disease with exacerbation, improved. 3. Previous history of heavy tobacco use. 4. Obesity. 5. History of hyperlipidemia. 6. Hypothyroidism. 7. Cerebrovascular accident. 8. Hyperlipidemia. 9. Hypertension. 10.Memory impairment. 11.History of pulmonary embolism. 12.Spinal stenosis. 13.Degenerative disc disease. 14.Mitral and tricuspid regurgitation. PLAN: The patient is doing well. She wants to be discharged home. From my perspective, she could be discharged home. She needs to follow up with her primary doctor, Dr. Trevor Hamilton, as well as her relay assembler, Dr. Simpson. Additional recommendations and suggestions are forthcoming. Prognosis is guarded. MMODL / IJN: [id number] /
--- NOTE | 2019-04-06 16:26 | P.PN ---
Subjective This is Jie Streeter PA-C dictating a progress note on this patient Case discussed with Dr. Ferguson and he agrees with the plan of care HPI/interval history Patient is a 63-year-old female with a past medical history of paroxysmal atrial fibrillation, COPD, hypertension, dyslipidemia and prior CVA who presented with complaints of shortness of breath. She was admitted for treatment of COPD exacerbation and started on nebulizers, steroids, and antibiotics. She was initially in A. fib with rates in the 100s and started on IV Cardizem and converted. She has not had any further episodes of atrial fibrillation. Yesterday I increased her lisinopril and her blood pressure has been better controlled. I also increased her Lasix she had some lower extremity edema. She feels her lower extremity edema has improved however her weight does not reflect this. Patient seen and examined sitting up in bed. States her breathing has improved significantly. She has been able to walk around her room whereas before she came in she was so short of breath she couldn't even move out of bed. States she feels ready to go home. No chest pain, palpitations or dizziness. EXAMINATION Patient is afebrile, pulse in the 80s, respirations 16, blood pressure 132/67, oxygen saturation 93% on 3 L nasal cannula Patient seen and examined sitting up at the side of the bed, in no acute distress Lungs are rhonchorous bilaterally Heart is regular, normal S1-S2, no murmurs noted Bilateral legs are wrapped in Antoine wrap, Mild lower extremity edema bilaterally REVIEW OF LABS, ECG Potassium 4.9, BUN 27, creatinine 0.49 No further episodes of atrial fibrillation on telemetry overnight IMPRESSION / ASSESSMENT: Worsening shortness of breath with productive cough, likely secondary to acute COPD exacerbation, symptoms improved significantly Paroxysmal atrial fibrillation with RVR, anticoagulated with Xarelto, has been maintaining sinus rhythm Hypertension, blood pressure improved Dyslipidemia Previous echocardiogram showing preserved LV systolic function PLAN: Continue aspirin, atorvastatin, Diltiazem and metoprolol for rate control Continue lisinopril 20 mg Continue Lasix 40 mg twice a day and spironolactone 25 mg Continue Xarelto for anticoagulation Objective - Vital Signs Vital signs: Vital Signs Temp 98.3 F 04/05/19 23:31 Pulse 80 04/06/19 15:40 Resp 16 04/06/19 15:54 BP 132/67 04/06/19 15:40 Pulse Ox 93 L 04/06/19 15:28 Intake & Output 04/05/19 04/06/19 04/06/19 18:59 06:59 18:59 Intake Total 250 600 Output Total 250 Balance 0 600 Weight 81.6 kg 82.8 kg Intake: IV 10 0.9 10 Oral 240 600 Output: Urine 250 Other: # Voids 1 3 # Bowel Movements 1 - Labs CBC & Chem 7: 04/04/19 17:44 04/06/19 06:27 Labs: Abnormal Lab Results - Last 24 Hours (Table) 04/05/19 04/05/19 04/06/19 Range/Units 16:59 20:20 06:09 Sodium (137-145) mmol/L Chloride (98-107) mmol/L Carbon Dioxide (22-30) mmol/L BUN (7-17) mg/dL Creatinine (0.52-1.04) mg/dL Glucose (74-99) mg/dL POC Glucose (mg/dL) 250 H 221 H 263 H (75-99) mg/dL 04/06/19 04/06/19 Range/Units 06:27 12:06 Sodium 136 L (137-145) mmol/L Chloride 95 L (98-107) mmol/L Carbon Dioxide 38 H (22-30) mmol/L BUN 27 H (7-17) mg/dL Creatinine 0.49 L (0.52-1.04) mg/dL Glucose 238 H (74-99) mg/dL POC Glucose (mg/dL) 182 H (75-99) mg/dL Microbiology - Last 24 Hours (Table) 04/04/19 18:53 Blood Culture - Preliminary Blood No Growth after 24 hours
[2019-04-06 17:11] LABS: Glucose,Whole Blood 207 mg/dL (75-99)
--- NOTE | 2019-04-06 18:15 | P.PN ---
Subjective Progress Note Date: 04/06/19 Principal diagnosis: Acute exacerbation COPD/ Acute tracheal bronchitis/ Acute hypoxic respiratory failure Paroxysmal atrial fibrillation with RVR Objective - Vital Signs Vital signs: Vital Signs Temp 98.3 F 04/05/19 23:31 Pulse 88 04/06/19 08:35 Resp 16 04/06/19 08:00 BP 150/70 04/06/19 08:00 Pulse Ox 100 04/06/19 08:00 Intake & Output 04/05/19 04/06/19 04/06/19 18:59 06:59 18:59 Intake Total 250 360 Output Total 250 Balance 0 360 Weight 81.6 kg 82.8 kg Intake: IV 10 0.9 10 Oral 240 360 Output: Urine 250 Other: # Voids 1 # Bowel Movements 1 - Exam GENERAL: BMI 22.9, sitting in the edge of the bed, short of breath EYES: Pupils equal. Conjunctiva pale HEENT: External appearance of nose and ears normal, oral cavity normal NECK: JVD not raised; masses not palpable. HEART: Heart sounds regular, edema present. LUNGS: Respiratory rate increased, diminished breath sounds prolonged expiration, accessory muscles the working, not able to speak in full sentences ABDOMEN: Soft, nontender, liver spleen not palpable, no masses palpable. PSYCH: Alert and oriented x3; mood and affect anxious NEUROLOGICAL: Cranial nerves grossly intact; no facial asymmetry, power and sensation grossly intact. - Labs CBC & Chem 7: 04/04/19 17:44 04/06/19 06:27 Labs: Abnormal Lab Results - Last 24 Hours (Table) 04/05/19 04/05/19 04/05/19 Range/Units 11:45 12:20 16:59 Sodium (137-145) mmol/L Chloride (98-107) mmol/L Carbon Dioxide (22-30) mmol/L BUN (7-17) mg/dL Creatinine (0.52-1.04) mg/dL Glucose (74-99) mg/dL POC Glucose (mg/dL) 130 H 250 H (75-99) mg/dL Plasma Lactic Acid Shailesh 2.4 H* (0.7-2.0) mmol/L 04/05/19 04/06/19 04/06/19 Range/Units 20:20 06:09 06:27 Sodium 136 L (137-145) mmol/L Chloride 95 L (98-107) mmol/L Carbon Dioxide 38 H (22-30) mmol/L BUN 27 H (7-17) mg/dL Creatinine 0.49 L (0.52-1.04) mg/dL Glucose 238 H (74-99) mg/dL POC Glucose (mg/dL) 221 H 263 H (75-99) mg/dL Plasma Lactic Acid Shailesh (0.7-2.0) mmol/L Microbiology - Last 24 Hours (Table) 04/04/19 18:53 Blood Culture - Preliminary Blood No Growth after 24 hours Assessment and Plan Assessment: -Acute severe COPD exacerbation in a X smoker -Acute tracheal bronchitis -Acute hypoxic respiratory failure from COPD exacerbation -Persistent atrial fibrillation, rate uncontrolled presentation -Hyperlipidemia -Essential hypertension -Mild cognitive impairment -Hypothyroid -Chronic anxiety depression otherwise specified -Chronic gait dysfunction uses a cane and a walker Plan: Patient started on nebulized bronchodilators every 4 hours, IV Solu-Medrol, inhaled steroids and performarist. Both cardiology and pulmonary were consulted. Care was discussed with the patient. By mouth Levaquin. Home medications resumed. Antoine wraps to both lower extremity. Expect the patient to be in the hospital for at least 2 nights
[2019-04-06] MEDS ORDERED: LEVOFLOXACIN 500 MG TAB PO SCH (19:00)
[2019-04-06 20:30] LABS: Glucose,Whole Blood 204 mg/dL (75-99)
[2019-04-06] MEDS: MONTELUKAST 10 MG TAB PO SCH (20:40)
[2019-04-07] MEDS: methylPREDNISolone SOD SUCCI 40 MG/ML 1 ML VIAL IV SCH ×2 (00:36→12:06)
[2019-04-07] MEDS: IPRATROPIUM-ALBUTEROL 3 ML NEB INHALATION SCH ×3 (03:09→11:00)
[2019-04-07 03:46] VITALS: RESP 16
[2019-04-07] MEDS: INSULIN ASPART (NovoLOG) 100 UNIT/ML VIAL SQ SCH (06:32)
[2019-04-07] MEDS: LEVOTHYROXINE 50 MCG TAB PO SCH (06:32)
[2019-04-07] MEDS: DIGOXIN 125 MCG TAB PO SCH (06:32)
[2019-04-07 06:38] LABS: Glucose,Whole Blood 227 mg/dL (75-99)
[2019-04-07 06:53] LABS: Anisocytosis Slight; Basophils % (A) 0 %; Eosinophils % (A) 0 %; HCT 34.2 % (34.0-46.0); HGB 10.1 gm/dL (11.4-16.0); Hypochromasia Marked; Lymphocytes # (A) 0.5 k/uL (1.0-4.8); Lymphocytes % (A) 5 %; MCH 25.8 pg (25.0-35.0); MCHC 29.4 g/dL (31.0-37.0); MCV 87.7 fL (80.0-100.0); Mean Platelet Volume 7.6; Monocytes # (A) 0.4 k/uL (0-1.0); Monocytes % (A) 5 %; Neutrophils # (A) 8.6 k/uL (1.3-7.7); Neutrophils % (A) 90 %; Platelet Count 240 k/uL (150-450); RDW 17.4 % (11.5-15.5); WBC 9.6 k/uL (3.8-10.6)
[2019-04-07] MEDS: BUDESONIDE 1 MG/2 ML NEBU INHALATION SCH (07:05)
[2019-04-07] MEDS: FORMOTEROL FUMARATE 20 MCG/2 ML NEBU INHALATION SCH (07:05)
[2019-04-07 07:20] LABS: African American GFR (CKD) >90 (>60 ml/min/1.73 sqM); Blood Urea Nitrogen 35 mg/dL (7-17); Calcium 8.9 mg/dL (8.4-10.2); Chloride 91 mmol/L (98-107); Glucose 215 mg/dL (74-99); Non-African American GFR(CKD) >90 (>60 ml/min/1.73 sqM); Potassium 4.5 mmol/L (3.5-5.1); Sodium 137 mmol/L (137-145)
[2019-04-07 07:27] LABS: Anion Gap 5 mmol/L
[2019-04-07 07:30] LABS: Carbon Dioxide 41 mmol/L (22-30)
[2019-04-07] MEDS: clonazePAM 1 MG TAB PO SCH (09:07)
[2019-04-07] MEDS: PREGABALIN 50 MG CAP PO SCH (09:07)
[2019-04-07] MEDS: MORPHINE SULFATE ER 60 MG TABLET PO SCH (09:07)
[2019-04-07] MEDS: LISINOPRIL 20 MG TAB PO SCH (09:08)
[2019-04-07] MEDS: METOPROLOL TARTRATE 25 MG TAB PO SCH (09:08)
[2019-04-07] MEDS: TAMSULOSIN 0.4 MG CAP.ER.24H PO SCH (09:08)
[2019-04-07] MEDS: DILTIAZEM CD 240 MG CAP.ER.24H PO SCH (09:08)
[2019-04-07] MEDS: NYSTATIN 100,000UNIT/GM CREAM 30 GM TUBE TOPICAL SCH (09:08)
[2019-04-07] MEDS: DULoxetine HCL 60 MG CAPSULE.DR PO SCH (09:08)
[2019-04-07] MEDS: FUROSEMIDE 20 MG TAB PO SCH (09:08)
[2019-04-07] MEDS: SPIRONOLACTONE 25 MG TAB PO SCH (09:08)
[2019-04-07] MEDS: POLYETHYLENE GLYCOL 3350 17 GM POWD.PACK PO SCH (09:09)
--- NOTE | 2019-04-07 12:36 | P.PN ---
Subjective Progress Note Date: 04/07/19 Principal diagnosis: Atrial fibrillation with a rapid ventricular response The patient is seen today 04/07/2019 in follow-up on the selective care unit. She was admitted for atrial fibrillation with a rapid ventricular response. Some exacerbation of her COPD as well. She is currently sitting up in a chair at the bedside. Awake and alert in no acute distress. No worsening shortness of breath cough or congestion. No chest pain or palpitations. Heart rate in the 80s. She is maintaining O2 saturations in the mid 90s on 4 L/m per nasal cannula. Blood culture reveals no growth. White count 9.6. Hemoglobin 10.1. Creatinine 0.52. She is continued on DuoNeb inhalations, Pulmicort and Perforomist inhalations, IV Solu-Medrol. Anticoagulated with Xarelto. Objective - Vital Signs Vital signs: Vital Signs Temp 98 F 04/07/19 03:45 Pulse 86 04/07/19 11:12 Resp 16 04/07/19 03:47 BP 130/65 04/07/19 03:45 Pulse Ox 95 04/07/19 07:08 Intake & Output 04/06/19 04/07/19 04/07/19 18:59 06:59 18:59 Intake Total 840 300 Balance 840 300 Weight 82.5 kg Intake: Oral 840 300 Other: # Voids 3 1 - Exam GENERAL EXAM: Alert, pleasant 64-year-old female patient, on 4 L nasal cannula, comfortable in no apparent distress. HEAD: Normocephalic. EYES: Normal reaction of pupils, equal size. NOSE: Clear with pink turbinates. THROAT: No erythema or exudates. NECK: No masses, no JVD. CHEST: No chest wall deformity. LUNGS: Equal air entry with no crackles, wheeze, rhonchi or dullness. Diminished. CVS: S1 and S2 normal with no audible murmur, regular rhythm. ABDOMEN: No hepatosplenomegaly, normal bowel sounds, no guarding or rigidity. SPINE: No scoliosis or deformity SKIN: No rashes, multiple areas of ecchymosis due to chronic steroid use CENTRAL NERVOUS SYSTEM: No focal deficits, tone is normal in all 4 extremities. EXTREMITIES: There is no peripheral edema. No clubbing, no cyanosis. Peripheral pulses are intact. - Labs CBC & Chem 7: 04/07/19 05:43 04/07/19 05:43 Labs: Abnormal Lab Results - Last 24 Hours (Table) 04/06/19 04/06/19 04/07/19 Range/Units 16:52 20:23 05:43 Hgb 10.1 L (11.4-16.0) gm/dL MCHC 29.4 L (31.0-37.0) g/dL RDW 17.4 H (11.5-15.5) % Neutrophils # 8.6 H (1.3-7.7) k/uL Lymphocytes # 0.5 L (1.0-4.8) k/uL Chloride (98-107) mmol/L Carbon Dioxide (22-30) mmol/L BUN (7-17) mg/dL Glucose (74-99) mg/dL POC Glucose (mg/dL) 207 H 204 H (75-99) mg/dL 04/07/19 04/07/19 Range/Units 05:43 06:26 Hgb (11.4-16.0) gm/dL MCHC (31.0-37.0) g/dL RDW (11.5-15.5) % Neutrophils # (1.3-7.7) k/uL Lymphocytes # (1.0-4.8) k/uL Chloride 91 L (98-107) mmol/L Carbon Dioxide 41 H* (22-30) mmol/L BUN 35 H (7-17) mg/dL Glucose 215 H (74-99) mg/dL POC Glucose (mg/dL) 227 H (75-99) mg/dL Microbiology - Last 24 Hours (Table) 04/04/19 18:53 Blood Culture - Preliminary Blood No Growth after 48 hours Assessment and Plan Assessment: 1 Atrial fibrillation with rapid ventricular response, back in sinus rhythm anticoagulant with Xarelto 2 Acute exacerbation of chronic obstructive pulmonary disease 3 History of heavy tobacco dependence 4 Obesity 5 Hyperlipidemia. 6 Hypothyroidism. 7 Cerebrovascular accident. 8 Memory impairment 9 History of pulmonary embolism 10 Spinal stenosis 11 Degenerative disc disease Plan: The patient was seen and evaluated by Dr. Maloney. She is stable from the pulmonary standpoint. Upon discharge she'll follow with Dr. Simpson in our office. Complete a prednisone taper. Anticoagulated with Xarelto. I, the cosigning physician, performed a history & physical examination of the patient. Lungs sounds are clear, diminished. Maintaining good O2 saturations in the 90s on 4 L/m per nasal cannula. I discussed the assessment and plan of care with my nurse practitioner, Cynthia Ken. I attest to the above note as dictated by her.
[2019-04-07 12:40] VITALS: BP 145/65; PULSE 98; TEMP 98
--- NOTE | 2019-04-07 13:16 | P.PN ---
Subjective Progress Note Date: 04/07/19 the patient is currently doing well. Upon examination she was washing herself up in the bathroom. She does continue to have some mild shortness of breath, however did not have any chest pain, palpitations, dizziness, or lightheadedness. vital signs have been stable overnight.she is currently on 3 L nasal cannula. GENERAL: Well-appearing, well-nourished and in no acute distress. NECK: Supple without JVD or thyromegaly. LUNGS: Breath sounds coarse bilaterally. Respiration equal and unlabored. No wheezes or rales. HEART: Regular rate and rhythm without murmurs, rubs or gallops. S1 and S2 heard. EXTREMITIES: Normal range of motion. No clubbing or cyanosis. Peripheral pulses intact and strong.mild lower extremity edema bilaterally. conveyor monitor shows no additional episodes of atrial fibrillation. labs: WBC 9.6, hemoglobin 10.1, hematocrit 34.2, platelet 240, sodium 137, potassium 4.5, BUN 35, creatinine 0.52 Impression: #1 shortness of breath, acute COPD exacerbation #2 paroxysmal atrial fibrillation with RVR, currently anticoagulated with Xarelto #3 hypertension #4 dyslipidemia Plan: Continue current medication regimen. Patient is cleared to be discharged home from the cardiac standpoint. Objective - Vital Signs Vital signs: Vital Signs Temp 98.0 F 04/07/19 08:00 Pulse 86 04/07/19 11:12 Resp 16 04/07/19 08:00 BP 145/65 04/07/19 08:00 Pulse Ox 98 04/07/19 08:00 Intake & Output 04/06/19 04/07/19 04/07/19 18:59 06:59 18:59 Intake Total 840 300 Balance 840 300 Weight 82.5 kg Intake: Oral 840 300 Other: # Voids 3 1 - Labs CBC & Chem 7: 04/07/19 05:43 04/07/19 05:43 Labs: Abnormal Lab Results - Last 24 Hours (Table) 04/06/19 04/06/19 04/07/19 Range/Units 16:52 20:23 05:43 Hgb 10.1 L (11.4-16.0) gm/dL MCHC 29.4 L (31.0-37.0) g/dL RDW 17.4 H (11.5-15.5) % Neutrophils # 8.6 H (1.3-7.7) k/uL Lymphocytes # 0.5 L (1.0-4.8) k/uL Chloride (98-107) mmol/L Carbon Dioxide (22-30) mmol/L BUN (7-17) mg/dL Glucose (74-99) mg/dL POC Glucose (mg/dL) 207 H 204 H (75-99) mg/dL 04/07/19 04/07/19 Range/Units 05:43 06:26 Hgb (11.4-16.0) gm/dL MCHC (31.0-37.0) g/dL RDW (11.5-15.5) % Neutrophils # (1.3-7.7) k/uL Lymphocytes # (1.0-4.8) k/uL Chloride 91 L (98-107) mmol/L Carbon Dioxide 41 H* (22-30) mmol/L BUN 35 H (7-17) mg/dL Glucose 215 H (74-99) mg/dL POC Glucose (mg/dL) 227 H (75-99) mg/dL Microbiology - Last 24 Hours (Table) 04/04/19 18:53 Blood Culture - Preliminary Blood No Growth after 48 hours
== END 2019-04-07 12:50 | disposition home health service (06) | DRG 308 ==
LOC: EC 17:20 → 3SCARD 20:29
PROVIDERS: ADMIT Hospitalist; ATTEND Hospitalist
DX: I48.19 Other persistent atrial fibrillation (principal); J96.01 Acute respiratory failure with hypoxia; J44.1 Chronic obstructive pulmonary disease with (acute) exacerbation; J44.0 Chronic obstructive pulmonary disease with (acute) lower respiratory infection; M19.90 Unspecified osteoarthritis, unspecified site; I10 Essential (primary) hypertension; M48.00 Spinal stenosis, site unspecified; I08.1 Rheumatic disorders of both mitral and tricuspid valves; F41.8 Other specified anxiety disorders; E78.5 Hyperlipidemia, unspecified; E66.9 Obesity, unspecified; E03.9 Hypothyroidism, unspecified; G31.84 Mild cognitive impairment of uncertain or unknown etiology; J20.9 Acute bronchitis, unspecified; Z79.01 Long term (current) use of anticoagulants; Z79.51 Long term (current) use of inhaled steroids; Z79.82 Long term (current) use of aspirin; Z79.890 Hormone replacement therapy; Z79.899 Other long term (current) drug therapy; Z80.3 Family history of malignant neoplasm of breast; Z86.711 Personal history of pulmonary embolism; Z86.73 Personal history of transient ischemic attack (TIA), and cerebral infarction without residual deficits; Z68.33 Body mass index [BMI] 33.0-33.9, adult; Z87.891 Personal history of nicotine dependence; Z88.0 Allergy status to penicillin; Z88.8 Allergy status to other drugs, medicaments and biological substances; Z88.1 Allergy status to other antibiotic agents; Z91.041 Radiographic dye allergy status
CPT/HCPCS: 36415; 71046; 80048; 80053; 81003; 82550; 83605; 83735; 83880; 84439; 84443; 84484; 85025; 85610; 85730; 87040; 93005; 94640; 94760; 96374; 96375; 99291

== ENCOUNTER 2019-04-17 19:10 | Observation (INO) | payer BC ==
[2019-04-17] MEDS ORDERED: IPRATROPIUM-ALBUTEROL 3 ML NEB INHALATION STA (19:47)
[2019-04-17] MEDS ORDERED: methylPREDNISolone SOD SUCCI 125 MG/2 ML VIAL IV STA (19:47)
--- NOTE | 2019-04-17 19:47 | ED ---
Weakness HPI - General Chief complaint: Weakness Stated complaint: Hypotension Time Seen by Provider: 04/17/19 19:29 Source: patient, EMS, RN notes reviewed, old records reviewed Mode of arrival: EMS Limitations: no limitations - History of Present Illness Initial comments: This is a 64-year-old female DF for evaluation patient is safe for evaluation of weakness not feeling well for a few days recent hospital admission and hence recent hospital discharge. Patient was feeling good initially on arriving home but symptoms have progressed with weakness increased fatigue more sleepiness and somnolence shortness of breath especially with laying down and Chronic back pain. Patient states of the symptoms are no she also feels like she is having some tachycardia with an elevated heart rate no fevers no nausea no vomiting no diarrhea she was admitted decreased appetite but that is also been an ongoing issue MD Complaint: generalized weakness, lack of energy, difficulty walking -: days(s) Location: generalized Severity: moderate Severity scale (1-10): 7 Consistency: constant Improves with: none Worsens with: none Context: history of similar Associated Symptoms: chest pain, loss of appetite, nausea/vomiting, shortness of breath - Related Data Home Medications Medication Instructions Recorded Confirmed Simvastatin [Zocor] 20 mg PO HS 06/06/14 04/04/19 DULoxetine HCL [Cymbalta] 60 mg PO DAILY 07/22/17 04/04/19 Levothyroxine Sodium [Synthroid] 50 mcg PO DAILY 07/22/17 04/04/19 Rivaroxaban [Xarelto] 20 mg PO HS 07/22/17 04/04/19 Ipratropium-Albuterol Nebulize 3 ml INHALATION RT-QID 06/01/18 04/04/19 [Duoneb 0.5 mg-3 mg/3 ml Soln] Polyethylene Glycol 3350 [Miralax] 17 gm PO DAILY PRN 12/30/18 04/04/19 Tamsulosin [Flomax] 0.4 mg PO DAILY 12/30/18 04/04/19 Aspirin 81 mg PO DAILY@1700 01/16/19 04/04/19 Budesonide-Formot 160-4.5 Mcg 2 puff INHALATION RT-BID 01/16/19 04/04/19 [Symbicort 160-4.5 Mcg Inhaler] Digoxin [Lanoxin] 125 mcg PO DAILY 01/16/19 04/04/19 Diltiazem Cd [Cardizem CD] 240 mg PO DAILY 01/16/19 04/04/19 predniSONE 10 mg PO DAILY 01/16/19 04/04/19 Furosemide [Lasix] 40 mg PO DAILY@0800 04/04/19 04/04/19 Montelukast [Singulair] 10 mg PO HS 04/04/19 04/04/19 Morphine Sulfate ER [Ms Contin] 60 mg PO Q8H 04/04/19 04/04/19 Pregabalin [Lyrica] 150 mg PO BID 04/04/19 04/04/19 clonazePAM [KlonoPIN] 1 mg PO HS 04/04/19 04/04/19 clonazePAM [KlonoPIN] 2 mg PO DAILY@0900 04/04/19 04/04/19 Previous Rx's Medication Instructions Recorded Nitroglycerin Sl Tabs [Nitrostat] 0.4 mg SUBLINGUAL Q5M PRN tab 01/15/19 oxyCODONE-APAP 10-325MG [Percocet 1 tab PO BID PRN #6 tab 01/18/19 10-325 mg] Furosemide [Lasix] 40 mg PO DAILY@1400 #30 tab 04/07/19 Levofloxacin [Levaquin] 500 mg PO Q24H #7 tab 04/07/19 Lisinopril [Zestril] 20 mg PO DAILY #30 tab 04/07/19 Metoprolol Tartrate [Lopressor] 25 mg PO BID@0800,1700 #60 tab 04/07/19 Nystatin 100,000Unit/gm Cream 1 applic TOPICAL BID #1 applic 04/07/19 [Mycostatin Cream] Spironolactone [Aldactone] 25 mg PO DAILY@0800 #30 tab 04/07/19 Allergies Allergy/AdvReac Type Severity Reaction Status Date / Time amoxicillin trihydrate Allergy Rash/Hives Verified 04/04/19 20:51 [From Augmentin] cefaclor [From Ceclor] Allergy Rash/Hives Verified 04/04/19 17:26 Iodinated Contrast Media Allergy Throat Verified 04/04/19 17:26 [Iodinated Contrast Media - Swelling IV Dye] Penicillins Allergy Rash/Hives Verified 04/04/19 17:26 potassium clavulanate Allergy Rash/Hives Verified 04/04/19 17:26 [From Augmentin] Review of Systems ROS Statement: Those systems with pertinent positive or pertinent negative responses have been documented in the HPI. ROS Other: All systems not noted in ROS Statement are negative. Past Medical History Past Medical History: Atrial Fibrillation, COPD, CVA/TIA, Hyperlipidemia, Hypertension, Memory Impairment, Pulmonary Embolus (PE), Thyroid Disorder Additional Past Medical History / Comment(s): CVA WITH LEFT SIDED EYE DROOP, NUMBNESS ALAN FINGERS, LEFT LEG SWELLING, DDD, SPINAL STENOSIS, severe mitral and moderate tricuspid valve regurgitation; memory impairment (short term per ) History of Any Multi-Drug Resistant Organisms: None Reported Past Surgical History: Back Surgery Additional Past Surgical History / Comment(s): d&c's, ALAN CATARACT SX Past Anesthesia/Blood Transfusion Reactions: No Reported Reaction Additional Past Anesthesia/Blood Transfusion Reaction / Comment(s): "anesthesia took more than usual, I didn't go under" Past Psychological History: Anxiety Smoking Status: Former smoker Past Alcohol Use History: None Reported Past Drug Use History: None Reported - Past Family History Sister(s) Family Medical History: Cancer Additional Family Medical History / Comment(s): breast General Exam Limitations: no limitations General appearance: alert, in no apparent distress Head exam: Present: atraumatic, normocephalic, normal inspection Eye exam: Present: normal appearance, PERRL, EOMI. Absent: scleral icterus, conjunctival injection, periorbital swelling ENT exam: Present: normal exam, mucous membranes moist Neck exam: Present: normal inspection. Absent: tenderness, meningismus, lymphadenopathy Respiratory exam: Present: normal lung sounds bilaterally. Absent: respiratory distress, wheezes, rales, rhonchi, stridor Cardiovascular Exam: Present: regular rate, normal rhythm, normal heart sounds. Absent: systolic murmur, diastolic murmur, rubs, gallop, clicks GI/Abdominal exam: Present: soft, normal bowel sounds. Absent: distended, tenderness, guarding, rebound, rigid Extremities exam: Present: normal inspection, full ROM, normal capillary refill. Absent: tenderness, pedal edema, joint swelling, calf tenderness Back exam: Present: normal inspection Neurological exam: Present: alert, oriented X3, CN II-XII intact Psychiatric exam: Present: normal affect, normal mood Skin exam: Present: warm, dry, intact, normal color. Absent: rash Course Vital Signs 04/17/19 04/17/19 04/17/19 19:24 20:32 20:57 Temperature 98.4 F Pulse Rate 55 L 100 89 Respiratory 18 18 Rate Blood Pressure 116/89 100/46 O2 Sat by Pulse 93 L 95 Oximetry 04/17/19 04/17/19 21:00 21:05 Temperature Pulse Rate 93 89 Respiratory 18 Rate Blood Pressure 96/51 O2 Sat by Pulse 96 Oximetry - Reevaluation(s) Reevaluation #1: 04/17/19 19:47 medical record and prior hospitilizationa are reviewed Reevaluation #2: 04/17/19 21:08 Patient informed of findings, questions answered, patient emotional, states that she has not been drinking significant amount of fluid ago has been severely thirst - Consultations Consultation #1: spoke w Dr Joaquin brown for admission EKG Findings - EKG Comments: EKG Findings:: EKG shows sinus tachycardia rate of 108, [place] 124, QRS 70, QTc 455 Medical Decision Making - Medical Decision Making 64 female to the ER for evaluation of weakness elevated uremia, low blood pressure dehydration with acute renal failure. Patient be admitted for ca rdiology and nephrology to evaluate, fluid balance - Lab Data Result diagrams: 04/17/19 20:00 04/17/19 20:00 Lab Results 04/17/19 04/17/19 04/17/19 Range/Units 20:00 20:00 20:00 WBC 12.2 H (3.8-10.6) k/uL RBC 4.30 (3.80-5.40) m/uL Hgb 10.9 L (11.4-16.0) gm/dL Hct 35.9 (34.0-46.0) % MCV 83.6 (80.0-100.0) fL MCH 25.3 (25.0-35.0) pg MCHC 30.3 L (31.0-37.0) g/dL RDW 17.6 H (11.5-15.5) % Plt Count 210 (150-450) k/uL Neutrophils % 87 % Lymphocytes % 3 % Monocytes % 5 % Eosinophils % 1 % Basophils % 3 % Neutrophils # 10.5 H (1.3-7.7) k/uL Lymphocytes # 0.3 L (1.0-4.8) k/uL Monocytes # 0.7 (0-1.0) k/uL Eosinophils # 0.1 (0-0.7) k/uL Basophils # 0.4 H (0-0.2) k/uL Hypochromasia Moderate Anisocytosis Slight PT (9.0-12.0) sec INR (<1.2) APTT (22.0-30.0) sec Sodium 133 L (137-145) mmol/L Potassium 5.0 (3.5-5.1) mmol/L Chloride 101 (98-107) mmol/L Carbon Dioxide 21 L (22-30) mmol/L Anion Gap 11 mmol/L BUN 68 H (7-17) mg/dL Creatinine 2.36 H (0.52-1.04) mg/dL Est GFR (CKD-EPI)AfAm 25 (>60 ml/min/1.73 sqM) Est GFR (CKD-EPI)NonAf 21 (>60 ml/min/1.73 sqM) Glucose 161 H (74-99) mg/dL Calcium 8.1 L (8.4-10.2) mg/dL Magnesium 2.4 H (1.6-2.3) mg/dL Total Bilirubin 0.4 (0.2-1.3) mg/dL AST 22 (14-36) U/L ALT 13 (4-34) U/L Alkaline Phosphatase 76 (38-126) U/L Creatine Kinase 156 H (30-135) U/L Troponin I (0.000-0.034) ng/mL NT-Pro-B Natriuret Pep 551 pg/mL Total Protein 5.8 L (6.3-8.2) g/dL Albumin 3.1 L (3.5-5.0) g/dL 04/17/19 04/17/19 Range/Units 20:00 20:00 WBC (3.8-10.6) k/uL RBC (3.80-5.40) m/uL Hgb (11.4-16.0) gm/dL Hct (34.0-46.0) % MCV (80.0-100.0) fL MCH (25.0-35.0) pg MCHC (31.0-37.0) g/dL RDW (11.5-15.5) % Plt Count (150-450) k/uL Neutrophils % % Lymphocytes % % Monocytes % % Eosinophils % % Basophils % % Neutrophils # (1.3-7.7) k/uL Lymphocytes # (1.0-4.8) k/uL Monocytes # (0-1.0) k/uL Eosinophils # (0-0.7) k/uL Basophils # (0-0.2) k/uL Hypochromasia Anisocytosis PT 11.0 (9.0-12.0) sec INR 1.1 (<1.2) APTT 23.5 (22.0-30.0) sec Sodium (137-145) mmol/L Potassium (3.5-5.1) mmol/L Chloride (98-107) mmol/L Carbon Dioxide (22-30) mmol/L Anion Gap mmol/L BUN (7-17) mg/dL Creatinine (0.52-1.04) mg/dL Est GFR (CKD-EPI)AfAm (>60 ml/min/1.73 sqM) Est GFR (CKD-EPI)NonAf (>60 ml/min/1.73 sqM) Glucose (74-99) mg/dL Calcium (8.4-10.2) mg/dL Magnesium (1.6-2.3) mg/dL Total Bilirubin (0.2-1.3) mg/dL AST (14-36) U/L ALT (4-34) U/L Alkaline Phosphatase (38-126) U/L Creatine Kinase (30-135) U/L Troponin I 0.022 (0.000-0.034) ng/mL NT-Pro-B Natriuret Pep pg/mL Total Protein (6.3-8.2) g/dL Albumin (3.5-5.0) g/dL - Radiology Data Radiology results: report reviewed (Chest x-ray is negative for acute disease), image reviewed Disposition Clinical Impression: Acute exacerbation of chronic obstructive airways disease, Dehydration, Hypotension, ARF (acute renal failure) Disposition: ADMITTED IP TO THIS [facility] Condition: Fair Is patient prescribed a controlled substance at d/c from ED?: No Referrals: Trevor Hamilton MD [Primary Care Provider] - 1-2 days
[2019-04-17 20:14] LABS: Anisocytosis Slight; Basophils # (A) 0.4 k/uL (0-0.2); Basophils % (A) 3 %; Eosinophils # (A) 0.1 k/uL (0-0.7); Eosinophils % (A) 1 %; HCT 35.9 % (34.0-46.0); HGB 10.9 gm/dL (11.4-16.0); Hypochromasia Moderate; Lymphocytes # (A) 0.3 k/uL (1.0-4.8); Lymphocytes % (A) 3 %; MCH 25.3 pg (25.0-35.0); MCHC 30.3 g/dL (31.0-37.0); MCV 83.6 fL (80.0-100.0); Mean Platelet Volume 8.8; Monocytes # (A) 0.7 k/uL (0-1.0); Monocytes % (A) 5 %; Neutrophils # (A) 10.5 k/uL (1.3-7.7); Neutrophils % (A) 87 %; Platelet Count 210 k/uL (150-450); RDW 17.6 % (11.5-15.5); WBC 12.2 k/uL (3.8-10.6)
--- NOTE | 2019-04-17 20:20 | XR ---
EXAMINATION TYPE: XR chest 2V DATE OF EXAM: 04/17/2019 COMPARISON: 04/04/2019 HISTORY: Short of breath TECHNIQUE: 2 views FINDINGS: There is patchy linear density in both lower lobes. Heart size is normal. There is no heart failure. There is slight anterior wedging of mid thoracic vertebra up to 20%. There is osteopenia. IMPRESSION: Patchy atelectasis in both lower lobes increased compared to old exam. Osteoporotic thoracic compression fractures unchanged. No heart failure.
[2019-04-17 20:23] LABS: Albumin 3.1 g/dL (3.5-5.0); Calcium 8.1 mg/dL (8.4-10.2); Magnesium 2.4 mg/dL (1.6-2.3); Total Bilirubin 0.4 mg/dL (0.2-1.3); Total Protein 5.8 g/dL (6.3-8.2)
[2019-04-17 20:36] LABS: INR 1.1 (<1.2); Partial Thromboplastin Time 23.5 sec (22.0-30.0)
[2019-04-17] MEDS ORDERED: IPRATROPIUM-ALBUTEROL 3 ML NEB INHALATION PRN (21:03)
[2019-04-18] MEDS: methylPREDNISolone SOD SUCCI 125 MG/2 ML VIAL IV SCH ×3 (00:48→12:40)
[2019-04-18] MEDS: ALBUTEROL NEBULIZED 2.5 MG/3 ML INHALATION SCH ×4 (05:57→20:48)
--- NOTE | 2019-04-18 07:23 | XR ---
EXAMINATION TYPE: XR chest 2V DATE OF EXAM: 04/18/2019 COMPARISON: 04/17/2019 HISTORY: Congestive heart failure TECHNIQUE: Frontal and lateral views of the chest are obtained. FINDINGS: Multifocal reticular opacities are seen at the lung bases. Pulmonary hyperinflation of und erlying COPD. Stable cardiomediastinal silhouette. No new consolidation. No pleural effusion or pneum othorax. Diffuse osseous demineralization. IMPRESSION: Stable multifocal linear bibasilar opacities. Bibasilar opacities appear as atelectasis. Lingular opacity could represent pneumonia or atelectasis.
[2019-04-18 11:04] LABS: Calcium 8.7 mg/dL (8.4-10.2); Potassium 4.7 mmol/L (3.5-5.1)
--- NOTE | 2019-04-18 11:09 | P.CRDCN ---
History of Present Illness History of present illness: HISTORY OF PRESENTING ILLNESS This is a pleasant 64-year-old female past medical history significant for paroxysmal atrial fibrillation on long-term anticoagulation, COPD, CVA, hyp ertension, dyslipidemia, chronic diastolic heart failure and valvular heart disease. She follows in the office with Dr. Silva. We have been asked to see in consultation for heart failure. Patient was seen and examined sitting on the edge of patches having come back from the bathroom. She is quite dyspneic. Her breathing doesn't improve if she sits and rests. She states she was discharged from the hospital on April 07. Since going home she developed significant abdominal discomfort associated with nausea, poor appetite, shortness of breath and generalized fatigue. She states she has not been taking her prescribed medication secondary to her upset stomach. Specifically she has not taken her lasix or aldactone. She denies chest pain, dizziness or palpitations. DIAGNOSTICS EKG reveals sinus tachycardia with bigeminy, heart rate 108. Chest xray on admission revealed patchy atelectasis in both lower lobes with no evidence of heart failure. Repeat this morning revealed stable multi-focal linear bibasilar opacities. Laboratory reviewed, WBC 12.2, hemoglobin 10.9, platelets 210, sodium 133, potassium 5.0, creatinine 2.36 with a GFR of 21, magnesium 2.4, cardiac enzymes negative 3 and 19 proBNP 551. Current cardiac medications include aspirin 81 mg daily, digoxin 125 g daily, diltiazem 180 mg daily, Lasix 40 mg BID, lisinopril 20 mg daily, Lopressor 25 mg twice a day, Xarelto 20 mg at bedtime, simvastatin 20 mg at bedtime and Aldactone 25 mg daily. Most recent echocardiogram obtained 12/2018 revealed preserved LV systolic function with EF 60-65%, moderate-severe MR, mild TR and moderate pulmonary hypertension with RVSP 51 mmHg REVIEW OF SYSTEMS At the time of my exam: CONSTITUTIONAL: Denies fever or chills. CARDIOVASCULAR: Denies chest pain, shortness of breath, orthopnea, PND or palpitations. RESPIRATORY: Denies cough. GASTROINTESTINAL: Denies abdominal pain, diarrhea, constipation, nausea or vomiting. MUSCULOSKELETAL: Denies myalgias. NEUROLOGIC: Denies numbness, tingling or weakness. ENDOCRINE: Denies fatigue, weight change, polydipsia or polyurina. GENITOURINARY: Denies burning, hematuria or urgency with micturation. HEMATOLOGIC: Denies history of anemia or bleeding. PHYSICAL EXAMINATION Blood pressure 100/62 heart rate 96 afebrile and maintaining oxygen saturation on nasal cannula. CONSTITUTIONAL: No apparent distress. HEENT: Head is normocephalic. Pupils are equal, round. Sclerae anicteric. Mucous membranes of the mouth are moist. No JVD. No carotid bruit. CHEST EXAMINATION: Lungs are clear to auscultation. No chest wall tenderness is noted on palpation or with deep breathing. Diminished bilaterally. HEART EXAMINATION: Irregular rate and rhythm. S1, S2 heard. Systolic ejection murmur at the left sternal border, no gallops or rub. ABDOMEN: Soft, nontender. Positive bowel sounds. EXTREMITIES: 2+ peripheral pulses, no lower extremity edema and no calf tenderness. NEUROLOGIC EXAMINATION: Patient is awake, alert and oriented x3. ASSESSMENT Acute dehydration Leukocytosis Acute renal failure secondary to prerenal azotemia History of diastolic heart failure, clinically euvolemic. Paroxysmal atrial fibrillation on penitentiary anti-coagulation COPD Hypertension Dyslipidemia Valvular heart disease PLAN Hydrate with 0.9% NS at 100 cc per hour. She is not currently in heart failure and actually appears to be quite dry. Hold lasix, aldactone and lisinopril. Resume aspirin, digoxin, diltiazem, lopressor and xarelto as previously ordered. Repeat renal function in the morning. Thank you kindly for this consultation. Nurse Practitioner note has been reviewed, I agree with a documented findings and plan of care. Patient was seen and examined. Past Medical History Past Medical History: Atrial Fibrillation, COPD, CVA/TIA, Hyperlipidemia, Hypertension, Memory Impairment, Pulmonary Embolus (PE), Thyroid Disorder Additional Past Medical History / Comment(s): CVA WITH LEFT SIDED EYE DROOP, NUMBNESS ALAN FINGERS, LEFT LEG SWELLING, DDD, SPINAL STENOSIS, severe mitral and moderate tricuspid valve regurgitation; memory impairment (short term per ) History of Any Multi-Drug Resistant Organisms: None Reported Past Surgical History: Back Surgery Additional Past Surgical History / Comment(s): d&c's, ALAN CATARACT SX Past Anesthesia/Blood Transfusion Reactions: No Reported Reaction Additional Past Anesthesia/Blood Transfusion Reaction / Comment(s): "anesthesia took more than usual, I didn't go under" Past Psychological History: Anxiety Smoking Status: Former smoker Past Alcohol Use History: None Reported Past Drug Use History: None Reported - Past Family History Sister(s) Family Medical History: Cancer Additional Family Medical History / Comment(s): breast Medications and Allergies Home Medications Medication Instructions Recorded Confirmed Type Simvastatin [Zocor] 20 mg PO HS 06/06/14 04/17/19 History DULoxetine HCL [Cymbalta] 60 mg PO DAILY 07/22/17 04/17/19 History Levothyroxine Sodium [Synthroid] 50 mcg PO DAILY 07/22/17 04/17/19 History Rivaroxaban [Xarelto] 20 mg PO HS 07/22/17 04/17/19 History Ipratropium-Albuterol Nebulize 3 ml INHALATION RT-QID 06/01/18 04/17/19 History [Duoneb 0.5 mg-3 mg/3 ml Soln] Polyethylene Glycol 3350 [Miralax] 17 gm PO DAILY PRN 12/30/18 04/17/19 History Tamsulosin [Flomax] 0.4 mg PO DAILY 12/30/18 04/17/19 History Nitroglycerin Sl Tabs [Nitrostat] 0.4 mg SUBLINGUAL Q5M PRN tab 01/15/19 04/17/19 Rx Aspirin 81 mg PO DAILY@1700 01/16/19 04/17/19 History Budesonide-Formot 160-4.5 Mcg 2 puff INHALATION RT-BID 01/16/19 04/17/19 History [Symbicort 160-4.5 Mcg Inhaler] Digoxin [Lanoxin] 125 mcg PO DAILY 01/16/19 04/17/19 History predniSONE 10 mg PO DAILY 01/16/19 04/17/19 History oxyCODONE-APAP 10-325MG [Percocet 1 tab PO BID PRN #6 tab 01/18/19 04/17/19 Rx 10-325 mg] Furosemide [Lasix] 40 mg PO DAILY@0800 04/04/19 04/17/19 History Montelukast [Singulair] 10 mg PO HS 04/04/19 04/17/19 History Morphine Sulfate ER [Ms Contin] 60 mg PO Q8H 04/04/19 04/17/19 History Pregabalin [Lyrica] 150 mg PO BID 04/04/19 04/17/19 History clonazePAM [KlonoPIN] 1 mg PO HS 04/04/19 04/17/19 History clonazePAM [KlonoPIN] 2 mg PO DAILY@0900 04/04/19 04/17/19 History Furosemide [Lasix] 40 mg PO DAILY@1400 #30 tab 04/07/19 04/17/19 Rx Lisinopril [Zestril] 20 mg PO DAILY #30 tab 04/07/19 04/17/19 Rx Metoprolol Tartrate [Lopressor] 25 mg PO BID@0800,1700 #60 tab 04/07/19 04/17/19 Rx Nystatin 100,000Unit/gm Cream 1 applic TOPICAL BID #1 applic 04/07/19 04/17/19 Rx [Mycostatin Cream] Spironolactone [Aldactone] 25 mg PO DAILY@0800 #30 tab 04/07/19 04/17/19 Rx Diltiazem Cd [Cardizem Cd] 180 mg PO DAILY 04/17/19 04/17/19 History Allergies Allergy/AdvReac Type Severity Reaction Status Date / Time amoxicillin trihydrate Allergy Rash/Hives Verified 04/17/19 21:58 [From Augmentin] cefaclor [From Ceclor] Allergy Rash/Hives Verified 04/17/19 21:58 Iodinated Contrast Media Allergy Throat Verified 04/17/19 21:58 [Iodinated Contrast Media - Swelling IV Dye] Penicillins Allergy Rash/Hives Verified 04/17/19 21:58 potassium clavulanate Allergy Rash/Hives Verified 04/17/19 21:58 [From Augmentin] Physical Exam Vitals: Vital Signs Temp Pulse Pulse Resp BP BP Pulse Ox 04/18/19 07:33 96 04/18/19 07:30 97.5 F L 96 18 100/62 92 L 04/18/19 06:07 88 04/18/19 05:58 98 04/18/19 04:36 98 20 129/68 95 04/18/19 00:40 91 17 116/70 97 04/18/19 00:00 90 18 111/57 95 04/17/19 23:30 104 H 19 123/55 96 04/17/19 23:10 100 18 107/70 97 04/17/19 22:30 92 18 106/83 95 04/17/19 22:00 95 17 103/56 96 04/17/19 21:20 91 18 101/56 97 04/17/19 21:05 89 04/17/19 21:00 93 18 96/51 96 04/17/19 20:57 89 04/17/19 20:32 100 18 100/46 95 04/17/19 19:24 98.4 F 55 L 18 116/89 93 L Intake and Output 04/17/19 04/18/19 04/18/19 22:59 06:59 14:59 Other: # Voids 1 Weight 72.575 kg Results 04/17/19 20:00 04/17/19 20:00 Cardiac Enzymes 04/17/19 04/17/19 04/18/19 Range/Units 20:00 20:00 02:54 AST 22 (14-36) U/L Troponin I 0.022 <0.012 (0.000-0.034) ng/mL 04/18/19 Range/Units 07:45 AST (14-36) U/L Troponin I <0.012 (0.000-0.034) ng/mL Coagulation 04/17/19 Range/Units 20:00 PT 11.0 (9.0-12.0) sec APTT 23.5 (22.0-30.0) sec CBC 04/17/19 Range/Units 20:00 WBC 12.2 H (3.8-10.6) k/uL RBC 4.30 (3.80-5.40) m/uL Hgb 10.9 L (11.4-16.0) gm/dL Hct 35.9 (34.0-46.0) % Plt Count 210 (150-450) k/uL Comprehensive Metabolic Panel 04/17/19 Range/Units 20:00 Sodium 133 L (137-145) mmol/L Potassium 5.0 (3.5-5.1) mmol/L Chloride 101 (98-107) mmol/L Carbon Dioxide 21 L (22-30) mmol/L BUN 68 H (7-17) mg/dL Creatinine 2.36 H (0.52-1.04) mg/dL Glucose 161 H (74-99) mg/dL Calcium 8.1 L (8.4-10.2) mg/dL AST 22 (14-36) U/L ALT 13 (4-34) U/L Alkaline Phosphatase 76 (38-126) U/L Total Protein 5.8 L (6.3-8.2) g/dL Albumin 3.1 L (3.5-5.0) g/dL Current Medications Generic Name Dose Route Start Last Admin Trade Name Freq PRN Reason Stop Dose Admin Albuterol Sulfate 2.5 mg 04/18/19 08:00 04/18/19 05:57 Ventolin Nebulized INHALATION 2.5 mg RT-QID ROCHELLE Administration Albuterol/Ipratropium 3 ml 04/17/19 21:03 Duoneb 0.5 Mg-3 Mg/3 Ml Soln INHALATION RT-Q4H PRN Shortness Of Breath Or Wheezing Sodium Chloride 1,000 mls @ 100 mls/hr 04/18/19 10:15 Saline 0.9% IV .Q10H ROCHELLE Methylprednisolone Sodium Succinate 60 mg 04/18/19 00:00 04/18/19 06:57 Solu-Medrol IV 60 mg Q6HR ROCHELLE Administration Intake and Output 04/17/19 04/18/19 04/18/19 22:59 06:59 14:59 Other: # Voids 1 Weight 72.575 kg 04/17/19 20:00 04/17/19 20:00
--- NOTE | 2019-04-18 11:36 | P.NPCON ---
History of Present Illness - Reason for Consult acute renal failure - History of Present Illness Reason for consultation: Acute kidney injury History of present illness: Patient is a 64-year-old female seen in renal consultation for acute kidney injury. Patient's creatinine admission was 2.36 she was subsequently started on IV fluids. She was also hypotensive with blood pressure in the systolic 90s. Overall she feels better today. She is very eager to go home. She admits to good urine output. No vomiting or diarrhea now but she states her oral intake the last few days has been quite poor and she's been feeling nauseous as well. She denies use of nonsteroidals. No chest pain or shortness of breath. Patient was taking lisinopril as well as Lasix at home but both are currently held at this time. No major complaints at this time. She denies family history of renal disease. Vital signs are stable. General: The patient appeared well nourished and normally developed. HEENT: Head exam is unremarkable. Neck is without jugular venous distension. LUNGS: Lungs are clear to auscultation and percussion. Breath sounds decreased. HEART: Rate and Rhythm are regular. First and second heart sounds normal. No murmurs, rubs or gallops. ABDOMEN: Abdominal exam reveals normal bowel sounds. Non-tender and non- distended. No evidence of peritonitis. EXTREMITITES: No clubbing, cyanosis, or edema. Past Medical History Past Medical History: Atrial Fibrillation, COPD, CVA/TIA, Hyperlipidemia, Hypertension, Memory Impairment, Pulmonary Embolus (PE), Thyroid Disorder Additional Past Medical History / Comment(s): CVA WITH LEFT SIDED EYE DROOP, NUMBNESS ALAN FINGERS, LEFT LEG SWELLING, DDD, SPINAL STENOSIS, severe mitral and moderate tricuspid valve regurgitation; memory impairment (short term per ) History of Any Multi-Drug Resistant Organisms: None Reported Past Surgical History: Back Surgery Additional Past Surgical History / Comment(s): d&c's, ALAN CATARACT SX Past Anesthesia/Blood Transfusion Reactions: No Reported Reaction Additional Past Anesthesia/Blood Transfusion Reaction / Comment(s): "anesthesia took more than usual, I didn't go under" Smoking Status: Former smoker - Past Family History Sister(s) Family Medical History: Cancer Additional Family Medical History / Comment(s): breast Mother Family Medical History: Blood Disorder Additional Family Medical History / Comment(s): Mother from a type of blood disorder but pt cannot recall type. Father Additional Family Medical History / Comment(s): Father was "sickly" Medications and Allergies Home Medications Medication Instructions Recorded Confirmed Type Simvastatin [Zocor] 20 mg PO HS 06/06/14 04/17/19 History DULoxetine HCL [Cymbalta] 60 mg PO DAILY 07/22/17 04/17/19 History Levothyroxine Sodium [Synthroid] 50 mcg PO DAILY 07/22/17 04/17/19 History Rivaroxaban [Xarelto] 20 mg PO HS 07/22/17 04/17/19 History Ipratropium-Albuterol Nebulize 3 ml INHALATION RT-QID 06/01/18 04/17/19 History [Duoneb 0.5 mg-3 mg/3 ml Soln] Polyethylene Glycol 3350 [Miralax] 17 gm PO DAILY PRN 12/30/18 04/17/19 History Tamsulosin [Flomax] 0.4 mg PO DAILY 12/30/18 04/17/19 History Nitroglycerin Sl Tabs [Nitrostat] 0.4 mg SUBLINGUAL Q5M PRN tab 01/15/19 04/17/19 Rx Aspirin 81 mg PO DAILY@1700 01/16/19 04/17/19 History Budesonide-Formot 160-4.5 Mcg 2 puff INHALATION RT-BID 01/16/19 04/17/19 History [Symbicort 160-4.5 Mcg Inhaler] Digoxin [Lanoxin] 125 mcg PO DAILY 01/16/19 04/17/19 History predniSONE 10 mg PO DAILY 01/16/19 04/17/19 History oxyCODONE-APAP 10-325MG [Percocet 1 tab PO BID PRN #6 tab 01/18/19 04/17/19 Rx 10-325 mg] Furosemide [Lasix] 40 mg PO DAILY@0800 04/04/19 04/17/19 History Montelukast [Singulair] 10 mg PO HS 04/04/19 04/17/19 History Morphine Sulfate ER [Ms Contin] 60 mg PO Q8H 04/04/19 04/17/19 History Pregabalin [Lyrica] 150 mg PO BID 04/04/19 04/17/19 History clonazePAM [KlonoPIN] 1 mg PO HS 04/04/19 04/17/19 History clonazePAM [KlonoPIN] 2 mg PO DAILY@0900 04/04/19 04/17/19 History Furosemide [Lasix] 40 mg PO DAILY@1400 #30 tab 04/07/19 04/17/19 Rx Lisinopril [Zestril] 20 mg PO DAILY #30 tab 04/07/19 04/17/19 Rx Metoprolol Tartrate [Lopressor] 25 mg PO BID@0800,1700 #60 tab 04/07/19 04/17/19 Rx Nystatin 100,000Unit/gm Cream 1 applic TOPICAL BID #1 applic 04/07/19 04/17/19 Rx [Mycostatin Cream] Spironolactone [Aldactone] 25 mg PO DAILY@0800 #30 tab 04/07/19 04/17/19 Rx Diltiazem Cd [Cardizem Cd] 180 mg PO DAILY 04/17/19 04/17/19 History Allergies Allergy/AdvReac Type Severity Reaction Status Date / Time amoxicillin trihydrate Allergy Rash/Hives Verified 04/17/19 21:58 [From Augmentin] cefaclor [From Ceclor] Allergy Rash/Hives Verified 04/17/19 21:58 Iodinated Contrast Media Allergy Throat Verified 04/17/19 21:58 [Iodinated Contrast Media - Swelling IV Dye] Penicillins Allergy Rash/Hives Verified 04/17/19 21:58 potassium clavulanate Allergy Rash/Hives Verified 04/17/19 21:58 [From Augmentin] Physical Exam Vitals: Vital Signs Temp Pulse Pulse Resp BP BP Pulse Ox 04/18/19 11:13 108 H 04/18/19 08:00 16 04/18/19 07:33 96 04/18/19 07:30 97.5 F L 96 18 100/62 92 L 04/18/19 06:07 88 04/18/19 05:58 98 04/18/19 04:36 98 20 129/68 95 04/18/19 00:40 91 17 116/70 97 04/18/19 00:00 90 18 111/57 95 04/17/19 23:30 104 H 19 123/55 96 04/17/19 23:10 100 18 107/70 97 04/17/19 22:30 92 18 106/83 95 04/17/19 22:00 95 17 103/56 96 04/17/19 21:20 91 18 101/56 97 04/17/19 21:05 89 04/17/19 21:00 93 18 96/51 96 04/17/19 20:57 89 04/17/19 20:32 100 18 100/46 95 04/17/19 19:24 98.4 F 55 L 18 116/89 93 L Intake and Output 04/17/19 04/18/19 04/18/19 22:59 06:59 14:59 Other: # Voids 1 Weight 72.575 kg 72.575 kg Results - Lab Results Most recent lab results Calcium 8.7 mg/dL (8.4-10.2) 04/18/19 07:45 Magnesium 2.4 mg/dL (1.6-2.3) H 04/17/19 20:00 04/17/19 20:00 04/18/19 07:45 Assessment and Plan Plan: Assessment: 1. Acute kidney injury mostly prerenal secondary to hypotension and intravascular volume depletion from poor oral intake and diuretics. Renal function improving. Creatinine was 2.36 on admission and is now DrMiriam bae. No proteinuria on UA. 2. Hypovolemia improved with IV hydration. 3. History of A. fib maintained on anticoagulation. Cardiology following. 4. Hypovolemic hyponatremia improved with IV hydration. 5. Metabolic acidosis secondary to acute kidney injury. Better. Plan: I will decreased rate of normal saline to 70 mL an hour. Hold Lasix. Hold lisinopril as blood pressures in the lower side. Repeat electrolytes in the morning. Patient wants to go home today. I advised her to resume Lasix at a dose of 40 mg once daily in the next 2-3 days. I also advised her to monitor her weight closely at home. Follow up outpatient in 1-2 weeks. Thank you for the consultation. I will continue to follow the patient with you during her hospital stay.
[2019-04-18] MEDS: DIGOXIN 125 MCG TAB PO SCH (12:40)
[2019-04-18] MEDS: DILTIAZEM CD 180 MG CAP.ER.24H PO SCH (12:40)
--- NOTE | 2019-04-18 13:33 | P.CNPUL ---
History of Present Illness Consult date: 04/18/19 Requesting physician: Jose C Nuñez Reason for consult: COPD Chief complaint: Weakness History of present illness: This is a 64-year-old female with history of multiple medical problems including COPD, O2 dependent, prednisone dependent, maintained normally and 10 mg of prednisone. History of chronic paroxysmal atrial fibrillation, CVA, hypertension, diastolic congestive heart failure and valvular heart disease, mostly in the form of moderate severe mitral regurgitation and moderate pulmon kitty hypertension with right-sided pressures in the range of 50. patient was discharged recently from the hospital around April 07, and she was seen at the time for diastolic congestive heart failure and underlying COPD. Patient wasn't right into the ER last night mostly because of weakness since Tuesday. Patient stopped taking all her medications including her blood pressure medication, and including her prednisone. Her symptoms have progressively become worse, patient had worsening weakness, and she developed some shortness of breath. Describes her symptoms as mostly flulike symptoms. But no fever no chills no hemoptysis no cough no wheezing. Chest x-ray showed mostly atelectasis, no evidence of congestive heart failure, and no evidence of pneumonia. Her labs came back abnormal showing creatinine of 2.36, BUN of 68. Normal BNP level. And she had normal serum cortisol repeat labs this morning showed significant improvement with BUN down to 47 creatinine is down to 0.99. Patient was mostly given fluids in the ER. And her fluids were discontinued early this morning. Seen by nephrology in consultation, felt that her renal injury is most likely secondary to hypotension and intravascular volume depletion with poor oral intake over the last few days. And again the patient showed good response to fluids given on admission. Review of Systems ONSTITUTIONAL: Denies fever or chills. Describes mostly generalized weakness. CARDIOVASCULAR: Denies chest pain, shortness of breath, orthopnea, PND or palpitations. RESPIRATORY: Denies cough. Denies wheezing denies fever or chills. Denies any hemoptysis. GASTROINTESTINAL: Denies nausea vomiting abdominal pain. MUSCULOSKELETAL: Denies arthralgia or myalgia.. NEUROLOGIC: No headache no blurred vision no tingling no syncope.. ENDOCRINE: Denies any heat or cold intolerance. GENITOURINARY: Denies dysuria frequency urgency hematuria. HEMATOLOGIC: Denies history of anemia or bleeding. Skin: Denies any rashes Past Medical History Past Medical History: Atrial Fibrillation, COPD, CVA/TIA, Hyperlipidemia, Hypertension, Memory Impairment, Pulmonary Embolus (PE), Thyroid Disorder Additional Past Medical History / Comment(s): CVA WITH LEFT SIDED EYE DROOP, NUMBNESS ALAN FINGERS, LEFT LEG SWELLING, DDD, SPINAL STENOSIS, severe mitral and moderate tricuspid valve regurgitation; memory impairment (short term per ) History of Any Multi-Drug Resistant Organisms: None Reported Past Surgical History: Back Surgery Additional Past Surgical History / Comment(s): d&c's, ALAN CATARACT SX Past Anesthesia/Blood Transfusion Reactions: No Reported Reaction Additional Past Anesthesia/Blood Transfusion Reaction / Comment(s): "anesthesia took more than usual, I didn't go under" Smoking Status: Former smoker - Past Family History Sister(s) Family Medical History: Cancer Additional Family Medical History / Comment(s): breast Mother Family Medical History: Blood Disorder Additional Family Medical History / Comment(s): Mother from a type of blood disorder but pt cannot recall type. Father Additional Family Medical History / Comment(s): Father was "sickly" Medications and Allergies Home Medications Medication Instructions Recorded Confirmed Type Simvastatin [Zocor] 20 mg PO HS 06/06/14 04/17/19 History DULoxetine HCL [Cymbalta] 60 mg PO DAILY 07/22/17 04/17/19 History Levothyroxine Sodium [Synthroid] 50 mcg PO DAILY 07/22/17 04/17/19 History Rivaroxaban [Xarelto] 20 mg PO HS 07/22/17 04/17/19 History Ipratropium-Albuterol Nebulize 3 ml INHALATION RT-QID 06/01/18 04/17/19 History [Duoneb 0.5 mg-3 mg/3 ml Soln] Polyethylene Glycol 3350 [Miralax] 17 gm PO DAILY PRN 12/30/18 04/17/19 History Tamsulosin [Flomax] 0.4 mg PO DAILY 12/30/18 04/17/19 History Nitroglycerin Sl Tabs [Nitrostat] 0.4 mg SUBLINGUAL Q5M PRN tab 01/15/1907/01 Rx Aspirin 81 mg PO DAILY@1700 01/16/19 04/17/19 History Budesonide-Formot 160-4.5 Mcg 2 puff INHALATION RT-BID 01/16/19 04/17/19 History [Symbicort 160-4.5 Mcg Inhaler] Digoxin [Lanoxin] 125 mcg PO DAILY 01/16/19 04/17/19 History predniSONE 10 mg PO DAILY 01/16/19 04/17/19 History oxyCODONE-APAP 10-325MG [Percocet 1 tab PO BID PRN #6 tab 01/18/19 04/17/19 Rx 10-325 mg] Furosemide [Lasix] 40 mg PO DAILY@0800 04/04/19 04/17/19 History Montelukast [Singulair] 10 mg PO HS 04/04/19 04/17/19 History Morphine Sulfate ER [Ms Contin] 60 mg PO Q8H 04/04/19 04/17/19 History Pregabalin [Lyrica] 150 mg PO BID 04/04/19 04/17/19 History clonazePAM [KlonoPIN] 1 mg PO HS 04/04/19 04/17/19 History clonazePAM [KlonoPIN] 2 mg PO DAILY@0900 04/04/19 04/17/19 History Furosemide [Lasix] 40 mg PO DAILY@1400 #30 tab 04/07/19 04/17/19 Rx Lisinopril [Zestril] 20 mg PO DAILY #30 tab 04/07/19 04/17/19 Rx Metoprolol Tartrate [Lopressor] 25 mg PO BID@0800,1700 #60 tab 04/07/19 04/17/19 Rx Nystatin 100,000Unit/gm Cream 1 applic TOPICAL BID #1 applic 04/07/19 04/17/19 Rx [Mycostatin Cream] Spironolactone [Aldactone] 25 mg PO DAILY@0800 #30 tab 04/07/19 04/17/19 Rx Diltiazem Cd [Cardizem Cd] 180 mg PO DAILY 04/17/19 04/17/19 History Allergies Allergy/AdvReac Type Severity Reaction Status Date / Time amoxicillin trihydrate Allergy Rash/Hives Verified 04/17/19 21:58 [From Augmentin] cefaclor [From Ceclor] Allergy Rash/Hives Verified 04/17/19 21:58 Iodinated Contrast Media Allergy Throat Verified 04/17/19 21:58 [Iodinated Contrast Media - Swelling IV Dye] Penicillins Allergy Rash/Hives Verified 04/17/19 21:58 potassium clavulanate Allergy Rash/Hives Verified 04/17/19 21:58 [From Augmentin] Physical Exam Vitals: Vital Signs Temp Pulse Pulse Resp BP BP Pulse Ox 04/18/19 11:30 100 04/18/19 11:13 108 H 04/18/19 08:00 16 04/18/19 07:33 96 04/18/19 07:30 97.5 F L 96 18 100/62 92 L 04/18/19 06:07 88 04/18/19 05:58 98 04/18/19 04:36 98 20 129/68 95 04/18/19 00:40 91 17 116/70 97 04/18/19 00:00 90 18 111/57 95 04/17/19 23:30 104 H 19 123/55 96 04/17/19 23:10 100 18 107/70 97 04/17/19 22:30 92 18 106/83 95 04/17/19 22:00 95 17 103/56 96 04/17/19 21:20 91 18 101/56 97 04/17/19 21:05 89 04/17/19 21:00 93 18 96/51 96 04/17/19 20:57 89 04/17/19 20:32 100 18 100/46 95 04/17/19 19:24 98.4 F 55 L 18 116/89 93 L Intake and Output 04/17/19 04/18/19 04/18/19 22:59 06:59 14:59 Other: # Voids 1 Weight 72.575 kg 72.575 kg Physical Exam: Revealed a 64-year-old female in no distress. Head: Atraumatic, normocephalic. HEENT:[Neck is supple.] [No neck masses.] [No thyromegaly.] [No JVD.] PERRLA, EOMI, no icterus. Dry mucous membranes. Chest: [Clear throughout, no crackles, no rhonchi, no wheezes.] Cardiac Exam: Irregular irregular rhythm, 2/6 systolic murmur thought out to the precordium.. Abdomen: [Soft, nontender, no megaly, no rebound, no guarding, normal bowel sounds.] Extremities: [No clubbing, no edema, no cyanosis.] Neurological Exam: [No focal neurologic deficit.] Alert oriented 3. Psychiatric: Normal mood affect and normal mental status examination. Skin: No rashes. Results - Laboratory Findings CBC and BMP: 04/17/19 20:00 04/18/19 07:45 PT/INR, D-dimer PT 11.0 sec (9.0-12.0) 04/17/19 20:00 INR 1.1 (<1.2) 04/17/19 20:00 Abnormal lab findings: Abnormal Labs 04/17/19 04/17/19 04/18/19 20:00 20:00 07:45 WBC 12.2 H Hgb 10.9 L MCHC 30.3 L RDW 17.6 H Neutrophils # 10.5 H Lymphocytes # 0.3 L Basophils # 0.4 H Sodium 133 L 135 L Carbon Dioxide 21 L BUN 68 H 47 H Creatinine 2.36 H Glucose 161 H 287 H Calcium 8.1 L Magnesium 2.4 H Creatine Kinase 156 H Total Protein 5.8 L Albumin 3.1 L - Diagnostic Findings Chest x-ray: image reviewed (As noted in HPI.) Assessment and Plan Assessment: Impression: Acute dehydration Acute kidney injury secondary to hypovolemia Hypovolemic hyponatremia Chronic hypoxic respiratory failure secondary to COPD Severe chronic obstructive pulmonary disease, O2 dependent and prednisone dependent, presently inactive. Chronic bibasilar atelectasis is noted on chest x-ray. Valvular heart disease including mitral regurgitation and pulmonary hypertension Benign essential hypertension Dyslipidemia History of chronic diastolic congestive heart failure. Recommendation: Obviously patient responded well to hydration. Her renal functioning is back to normal. Her COPD status is severe but stable. Patient should be instructed as to resume all her previous medications, From the palmar perspective patient could be discharged home on follow-up on outpatient basis with Dr. Simpson. Restart her bronchodilators, and placed back on prednisone 10 mg maintenance dose. We'll continue to follow Time with Patient: Greater than 30
[2019-04-18] MEDS: SODIUM CHLORIDE 0.9% 1,000 ML IV SCH ×2 (15:39→21:57)
[2019-04-18] MEDS ORDERED: ASPIRIN 81 MG PO SCH (17:00)
[2019-04-18] MEDS ORDERED: NITROGLYCERIN SL TABS 0.4 MG TAB SUBLINGUAL PRN (17:18)
[2019-04-18] MEDS: METOPROLOL TARTRATE 25 MG TAB PO SCH (17:35)
[2019-04-18] MEDS: predniSONE 10 MG TAB PO SCH (17:35)
[2019-04-18] MEDS: MORPHINE SULFATE ER 60 MG TABLET PO SCH (17:35)
--- NOTE | 2019-04-18 17:36 | P.HPIM ---
History of Present Illness H&P Date: 04/18/19 Chief Complaint: Tired History of present complaint: This is a pleasant 64-year-old patient of Dr. Trevor Hamilton. 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 Simpson. Chronic stable medical conditions include hypertension, hyperlipidemia, mild cognitive impairment, hypothyroid, spinal stenosis, osteoarthritis, severe mitral and moderate tricuspid valve regurgitation, home oxygen 3.5 L. Paroxysmal atrial fibrillation . Patient presented with one-day history of feeling extremely tired. Feeling her belly was upset. Decreased appetite. Some fever and chills. She felt as if sh e had a stomach flu. No diarrhea. No urinary symptoms. Patient has a baseline short of breath nor do from there. No cough or phlegm. Admitted for the same. Started IV fluids. Feeling a bit better today. Patient thinks that her respiratory status no different than her baseline. Patient also went presenting here also somnolent tired and lethargic. Review of systems: GEN.: Tired, chills EYES: None HEENT: None NECK: None RESPIRATORY: As above CARDIOVASCULAR: None GASTROINTESTINAL: Upset stomach with nausea GENITOURINARY: None MUSCULOSKELETAL: Pain in joints LYMPHATICS: None HEMATOLOGICAL: None PSYCHIATRY: Anxious NEUROLOGICAL: None Past medical history to include: Hypertension, hyperlipidemia, mild cognitive impairment, hypothyroid, spinal stenosis, osteoarthritis, severe mitral and moderate tricuspid valve regurgitation, paroxysmal atrial fibrillation, COPD Social history: smoked half a pack a day for over 45 years until recently. . Uses a walker. Home oxygen 3.5 L Physical examination: VITAL SIGNS: 98.4, 55, 18, 116/89, 93% on 3 L GENERAL: BMI 29.3, sitting up in bed, tired and weak EYES: Pupils equal. Conjunctiva pale HEENT: External appearance of nose and ears normal, oral cavity normal NECK: JVD not raised; masses not palpable. HEART: Heart sounds regular, minimal edema. LUNGS: Respiratory rate increased, diminished breath sounds ABDOMEN: Soft, nontender, liver spleen not palpable, no masses palpable. PSYCH: Alert and oriented x3; mood and affect anxious NEUROLOGICAL: Cranial nerves grossly intact; no facial asymmetry, power and sensation grossly intact. LYMPHATICS: No lymph nodes palpable in the axilla and neck DERMATOLOGICAL: Diffuse bruising INVESTIGATIONS, reviewed in the clinical context: White count 12.2 hemoglobin 10.9 platelets 210 potassium 5 bun 68 creatinine 2.36 Patient's labs from 04/07/19 showed a bun of 35 and creatinine was 0.52 EKG tracing personally reviewed by me--sinus tachycardia Chest x-ray film personally reviewed by me-shows some chronic scarring 2-D echocardiogram from December 2018 shows EF of 60-65%, moderate pulmonary hypertension, moderate to severe mitral regurgitation, moderate concentric left medical hypertrophy Assessment: -Acute kidney injury suspect prerenal possibly from decreased oral intake, making patient feels weak tired rundown. -Acute metabolic encephalopathy patient having multiple pain medications, especially the setting of acute renal failure -Acute viral gastritis causing acute GI symptoms. -Chronic hypoxic respiratory failure from COPD, on 3.5 L oxygen at home -Paroxysmal atrial fibrillation, currently sinus rhythm -COPD in an ex-smoker -Hyperlipidemia -Essential hypertension -Mild cognitive impairment -Hypothyroid -Chronic anxiety depression otherwise specified -Chronic gait dysfunction uses a cane and a walker Plan: Patient with IV fluids. Hold off Lasix. Also [place] inhibitor to be helpful. Patient takes significant pain medications including MS Contin. We'll resume the same. DC the Klonopin. Also DC the Percocet. Continue with anticoagulation. Patient does not seem to have any COPD exacerbation. DC the Solu-Medrol. Care was discussed with the patient. Question were answered. Past Medical History Past Medical History: Atrial Fibrillation, COPD, CVA/TIA, Hyperlipidemia, Hypertension, Memory Impairment, Pulmonary Embolus (PE), Thyroid Disorder Additional Past Medical History / Comment(s): CVA WITH LEFT SIDED EYE DROOP, NUMBNESS ALAN FINGERS, LEFT LEG SWELLING, DDD, SPINAL STENOSIS, severe mitral and moderate tricuspid valve regurgitation; memory impairment (short term per husb and) History of Any Multi-Drug Resistant Organisms: None Reported Past Surgical History: Back Surgery Additional Past Surgical History / Comment(s): d&c's, ALAN CATARACT SX Past Anesthesia/Blood Transfusion Reactions: No Reported Reaction Additional Past Anesthesia/Blood Transfusion Reaction / Comment(s): "anesthesia took more than usual, I didn't go under" Past Psychological History: Anxiety Smoking Status: Former smoker Past Alcohol Use History: None Reported Past Drug Use History: None Reported - Past Family History Sister(s) Family Medical History: Cancer Additional Family Medical History / Comment(s): breast Mother Family Medical History: Blood Disorder Additional Family Medical History / Comment(s): Mother from a type of blood disorder but pt cannot recall type. Father Additional Family Medical History / Comment(s): Father was "sickly" Medications and Allergies Home Medications Medication Instructions Recorded Confirmed Type Simvastatin [Zocor] 20 mg PO HS 06/06/14 04/17/19 History DULoxetine HCL [Cymbalta] 60 mg PO DAILY 07/22/17 04/17/19 History Levothyroxine Sodium [Synthroid] 50 mcg PO DAILY 07/22/17 04/17/19 History Rivaroxaban [Xarelto] 20 mg PO HS 07/22/17 04/17/19 History Ipratropium-Albuterol Nebulize 3 ml INHALATION RT-QID 06/01/18 04/17/19 History [Duoneb 0.5 mg-3 mg/3 ml Soln] Polyethylene Glycol 3350 [Miralax] 17 gm PO DAILY PRN 12/30/18 04/17/19 History Tamsulosin [Flomax] 0.4 mg PO DAILY 12/30/18 04/17/19 History Nitroglycerin Sl Tabs [Nitrostat] 0.4 mg SUBLINGUAL Q5M PRN tab 01/15/19 0 04/17/19 Rx Aspirin 81 mg PO DAILY@1700 01/16/19 04/17/19 History Budesonide-Formot 160-4.5 Mcg 2 puff INHALATION RT-BID 01/16/19 04/17/19 History [Symbicort 160-4.5 Mcg Inhaler] Digoxin [Lanoxin] 125 mcg PO DAILY 01/16/19 04/17/19 History predniSONE 10 mg PO DAILY 01/16/19 04/17/19 History oxyCODONE-APAP 10-325MG [Percocet 1 tab PO BID PRN #6 tab 01/18/19 04/17/19 Rx 10-325 mg] Furosemide [Lasix] 40 mg PO DAILY@0800 04/04/19 04/17/19 History Montelukast [Singulair] 10 mg PO HS 04/04/19 04/17/19 History Morphine Sulfate ER [Ms Contin] 60 mg PO Q8H 04/04/19 04/17/19 History Pregabalin [Lyrica] 150 mg PO BID 04/04/19 04/17/19 History clonazePAM [KlonoPIN] 1 mg PO HS 04/04/19 04/17/19 History clonazePAM [KlonoPIN] 2 mg PO DAILY@0900 04/04/19 04/17/19 History Furosemide [Lasix] 40 mg PO DAILY@1400 #30 tab 04/07/19 04/17/19 Rx Lisinopril [Zestril] 20 mg PO DAILY #30 tab 04/07/19 04/17/19 Rx Metoprolol Tartrate [Lopressor] 25 mg PO BID@0800,1700 #60 tab 04/07/19 04/17/19 Rx Nystatin 100,000Unit/gm Cream 1 applic TOPICAL BID #1 applic 04/07/19 04/17/19 Rx [Mycostatin Cream] Spironolactone [Aldactone] 25 mg PO DAILY@0800 #30 tab 04/07/19 04/17/19 Rx Diltiazem Cd [Cardizem Cd] 180 mg PO DAILY 04/17/19 04/17/19 History Allergies Allergy/AdvReac Type Severity Reaction Status Date / Time amoxicillin trihydrate Allergy Rash/Hives Verified 04/17/19 21:58 [From Augmentin] cefaclor [From Ceclor] Allergy Rash/Hives Verified 04/17/19 21:58 Iodinated Contrast Media Allergy Throat Verified 04/17/19 21:58 [Iodinated Contrast Media - Swelling IV Dye] Penicillins Allergy Rash/Hives Verified 04/17/19 21:58 potassium clavulanate Allergy Rash/Hives Verified 04/17/19 21:58 [From Augmentin] Physical Exam Vitals: Vital Signs Temp Pulse Pulse Resp BP BP Pulse Ox 04/18/19 11:13 108 H 04/18/19 08:00 16 04/18/19 07:33 96 04/18/19 07:30 97.5 F L 96 18 100/62 92 L 04/18/19 06:07 88 04/18/19 05:58 98 04/18/19 04:36 98 20 129/68 95 04/18/19 00:40 91 17 116/70 97 04/18/19 00:00 90 18 111/57 95 04/17/19 23:30 104 H 19 123/55 96 04/17/19 23:10 100 18 107/70 97 04/17/19 22:30 92 18 106/83 95 04/17/19 22:00 95 17 103/56 96 04/17/19 21:20 91 18 101/56 97 04/17/19 21:05 89 04/17/19 21:00 93 18 96/51 96 04/17/19 20:57 89 04/17/19 20:32 100 18 100/46 95 04/17/19 19:24 98.4 F 55 L 18 116/89 93 L Intake and Output 04/17/19 04/18/19 04/18/19 22:59 06:59 14:59 Other: # Voids 1 Weight 72.575 kg Results CBC & Chem 7: 04/17/19 20:00 04/18/19 07:45 Labs: Abnormal Lab Results - Last 24 Hours (Table) 04/17/19 04/17/19 04/18/19 Range/Units 20:00 20:00 07:45 WBC 12.2 H (3.8-10.6) k/uL Hgb 10.9 L (11.4-16.0) gm/dL MCHC 30.3 L (31.0-37.0) g/dL RDW 17.6 H (11.5-15.5) % Neutrophils # 10.5 H (1.3-7.7) k/uL Lymphocytes # 0.3 L (1.0-4.8) k/uL Basophils # 0.4 H (0-0.2) k/uL Sodium 133 L 135 L (137-145) mmol/L Carbon Dioxide 21 L (22-30) mmol/L BUN 68 H 47 H (7-17) mg/dL Creatinine 2.36 H (0.52-1.04) mg/dL Glucose 161 H 287 H (74-99) mg/dL Calcium 8.1 L (8.4-10.2) mg/dL Magnesium 2.4 H (1.6-2.3) mg/dL Creatine Kinase 156 H (30-135) U/L Total Protein 5.8 L (6.3-8.2) g/dL Albumin 3.1 L (3.5-5.0) g/dL
[2019-04-18] MEDS: SYMBICORT 160-4.5 MCG INHALER INHALATION SCH (20:49)
[2019-04-18] MEDS ORDERED: clonazePAM 1 MG TAB PO SCH (21:00)
[2019-04-18] MEDS ORDERED: MONTELUKAST 10 MG TAB PO SCH (21:00)
[2019-04-18] MEDS ORDERED: ATORVASTATIN 10 MG TAB PO SCH (21:00)
[2019-04-18] MEDS ORDERED: RIVAROXABAN 20 MG TAB PO SCH (21:00)
[2019-04-18] MEDS: PREGABALIN 50 MG CAP PO SCH (21:30)
[2019-04-18] MEDS: NYSTATIN 100,000UNIT/GM CREAM 30 GM TUBE TOPICAL SCH ×2 (21:57→22:01)
[2019-04-19] MEDS: MORPHINE SULFATE ER 60 MG TABLET PO SCH ×2 (00:25→08:30)
[2019-04-19] MEDS ORDERED: LEVOTHYROXINE 50 MCG TAB PO SCH (06:30)
[2019-04-19] MEDS: ALBUTEROL NEBULIZED 2.5 MG/3 ML INHALATION SCH ×2 (07:12→11:28)
[2019-04-19] MEDS: SYMBICORT 160-4.5 MCG INHALER INHALATION SCH (07:12)
[2019-04-19] MEDS ORDERED: DULoxetine HCL 60 MG CAPSULE.DR PO SCH (09:00)
[2019-04-19] MEDS ORDERED: TAMSULOSIN 0.4 MG CAP.ER.24H PO SCH (09:00)
[2019-04-19] MEDS ORDERED: clonazePAM 1 MG TAB PO SCH (09:00)
[2019-04-19] MEDS: DILTIAZEM CD 180 MG CAP.ER.24H PO SCH (10:14)
[2019-04-19] MEDS: METOPROLOL TARTRATE 25 MG TAB PO SCH (10:14)
[2019-04-19] MEDS: PREGABALIN 50 MG CAP PO SCH (10:15)
[2019-04-19] MEDS: predniSONE 10 MG TAB PO SCH (10:15)
[2019-04-19] MEDS: DIGOXIN 125 MCG TAB PO SCH (10:15)
[2019-04-19] MEDS: NYSTATIN 100,000UNIT/GM CREAM 30 GM TUBE TOPICAL SCH (10:16)
[2019-04-19 10:50] LABS: Calcium 8.7 mg/dL (8.4-10.2); Magnesium 2.5 mg/dL (1.6-2.3); Potassium 5.3 mmol/L (3.5-5.1)
--- NOTE | 2019-04-19 10:53 | P.PN ---
Subjective Patient is seen in follow-up for acute kidney injury. Renal function is back to baseline. Oral intake is good. No vomiting or diarrhea. She wants to go home. Vital signs are stable. General: The patient appeared well nourished and normally developed. HEENT: Head exam is unremarkable. Neck is without jugular venous distension. LUNGS: Lungs are clear to auscultation and percussion. Breath sounds decreased. HEART: Rate and Rhythm are regular. First and second heart sounds normal. No murmurs, rubs or gallops. ABDOMEN: Abdominal exam reveals normal bowel sounds. Non-tender and non- distended. No evidence of peritonitis. EXTREMITITES: No clubbing, cyanosis, or edema. Objective - Vital Signs Vital signs: Vital Signs Temp 97.7 F 04/19/19 06:54 Pulse 96 04/19/19 07:27 Resp 16 04/19/19 10:43 BP 138/72 04/19/19 06:54 Pulse Ox 97 04/19/19 06:54 Intake & Output 04/18/19 04/19/19 04/19/19 18:59 06:59 18:59 Weight 72.575 kg Other: # Voids 2 3 - Labs CBC & Chem 7: 04/17/19 20:00 04/19/19 08:40 Labs: Abnormal Lab Results - Last 24 Hours (Table) 04/18/19 04/19/19 Range/Units 07:45 08:40 Sodium 135 L (137-145) mmol/L Potassium 5.3 H (3.5-5.1) mmol/L BUN 47 H 32 H (7-17) mg/dL Glucose 287 H 252 H (74-99) mg/dL Magnesium 2.5 H (1.6-2.3) mg/dL Assessment and Plan Plan: Assessment: 1. Acute kidney injury mostly prerenal secondary to hypotension and intravascular volume depletion from poor oral intake and diuretics. Renal function improving. Creatinine was 2.36 on admission and is now back to baseline. No proteinuria on UA. 2. Hypovolemia improved with IV hydration. 3. History of A. fib maintained on anticoagulation. Cardiology following. 4. Hypovolemic hyponatremia improved with IV hydration. 5. Metabolic acidosis secondary to acute kidney injury. Better. Plan: Hep-Lock IV fluids. Patient wants to go home today. I advised her to resume Lasix at a dose of 40 mg once daily in the next 2-3 days. I also advised her to monitor her weight closely at home. Follow up outpatient in 1-2 weeks.
[2019-04-19 10:55] VITALS: RESP 18
[2019-04-19] MEDS ORDERED: oxyCODONE-APAP 10-325MG 1 EACH TAB PO PRN (11:01)
--- NOTE | 2019-04-19 11:37 | P.PN ---
Subjective HISTORY OF PRESENTING ILLNESS This is a pleasant 64-year-old female past medical history significant for paroxysmal atrial fibrillation on long-term anticoagulation, COPD, CVA, hypertension, dyslipidemia, chronic diastolic heart failure and valvular heart disease. She follows in the office with Dr. Silva. She is seen and examined sitting up in bed in no acute distress. Her breathing has improved. She denies chest pain, dizziness or palpitations. Laboratory data reviewed, sodium 138, potassium 5.3, creatinine 0.84 and magnesium 2.5. Blood pressure 129/83 heart rate 100 afebrile maintaining oxygen saturation on nasal cannula. Currently maintained on aspirin 81 mg daily, atorvastatin 10 mg daily, digoxin 125 g daily, diltiazem 180 mg daily, Lopressor 25 mg twice a day and Xarelto 20 mg at bedtime. PHYSICAL EXAMINATION CONSTITUTIONAL: No apparent distress. HEENT: Head is normocephalic. Pupils are equal, round. Sclerae anicteric. Mucous membranes of the mouth are moist. No JVD. No carotid bruit. CHEST EXAMINATION: Lungs are clear to auscultation. No chest wall tenderness is noted on palpation or with deep breathing. Diminished bilaterally. HEART EXAMINATION: Irregular rate and rhythm. S1, S2 heard. Systolic ejection murmur at the left sternal border, no gallops or rub. EXTREMITIES: 2+ peripheral pulses, no lower extremity edema and no calf tenderness. ASSESSMENT Acute dehydration Leukocytosis Acute renal failure secondary to prerenal azotemia History of diastolic heart failure, clinically euvolemic. Paroxysmal atrial fibrillation on mcc anti-coagulation COPD Hypertension Dyslipidemia Valvular heart disease PLAN Resume lisinopril 20 mg daily and Lasix 40 mg daily to start tomorrow. Hold Aldactone until follow-up visit with Dr. Silva in the office in 2 weeks. Stable for discharge from a cardiac perspective. Nurse Practitioner note has been reviewed, I agree with a documented findings and plan of care. Patient was seen and examined. Objective - Vital Signs Vital signs: Vital Signs Temp 97.6 F 04/19/19 10:51 Pulse 100 04/19/19 11:29 Resp 18 04/19/19 10:51 BP 129/83 04/19/19 10:51 Pulse Ox 97 04/19/19 06:54 Intake & Output 04/18/19 04/19/19 04/19/19 18:59 06:59 18:59 Weight 72.575 kg Other: # Voids 2 3 - Labs CBC & Chem 7: 04/17/19 20:00 04/19/19 08:40 Labs: Abnormal Lab Results - Last 24 Hours (Table) 04/19/19 Range/Units 08:40 Potassium 5.3 H (3.5-5.1) mmol/L BUN 32 H (7-17) mg/dL Glucose 252 H (74-99) mg/dL Magnesium 2.5 H (1.6-2.3) mg/dL
[2019-04-19 11:45] VITALS: BMI 29.2
[2019-04-19 12:03] VITALS: BP 130/71; PULSE 85; TEMP 100.5
--- NOTE | 2019-04-19 14:46 | P.PN ---
Subjective Progress Note Date: 04/19/19 Principal diagnosis: Acute dehydration and acute kidney injury secondary to hypovolemia This is a 64-year-old female with history of multiple medical problems including COPD, O2 dependent, prednisone dependent, maintained normally and 10 mg of prednisone. History of chronic paroxysmal atrial fibrillation, CVA, hypertension, diastolic congestive heart failure and valvular heart disease, mostly in the form of moderate severe mitral regurgitation and moderate pulmonary hypertension with right-sided pressures in the range of 50. patient was discharged recently from the hospital around April 07, and she was seen at the time for diastolic congestive heart failure and underlying COPD. Patient wasn't right into the ER last night mostly because of weakness since Tuesday. Nilesh william stopped taking all her medications including her blood pressure medication, and including her prednisone. Her symptoms have progressively become worse, patient had worsening weakness, and she developed some shortness of breath. Describes her symptoms as mostly flulike symptoms. But no fever no chills no hemoptysis no cough no wheezing. Chest x-ray showed mostly atelectasis, no evidence of congestive heart failure, and no evidence of pneumonia. Her labs came back abnormal showing creatinine of 2.36, BUN of 68. Normal BNP level. And she had normal serum cortisol repeat labs this morning showed significant improvement with BUN down to 47 creatinine is down to 0.99. Patient was mostly given fluids in the ER. And her fluids were discontinued early this morning. Seen by nephrology in consultation, felt that her renal injury is most likely secondary to hypotension and intravascular volume depletion with poor oral intake over the last few days. And again the patient showed good response to fluids given on admission. Reevaluated today on 04/19/2019, patient is doing well, asymptomatic, she is asking to be discharged home. No cough no wheezing no chest pain no fever no chills. Her labs including her electrolytes and her renal profile are back to normal. Obviously the patient responded well to hydration mostly. Objective - Vital Signs Vital signs: Vital Signs Temp 100.5 F H 04/19/19 12:00 Pulse 85 04/19/19 12:00 Resp 18 04/19/19 12:00 BP 130/71 04/19/19 12:00 Pulse Ox 97 04/19/19 12:00 Intake & Output 04/18/19 04/19/19 04/19/19 18:59 06:59 18:59 Weight 72.575 kg 72.575 kg Other: # Voids 2 3 1 - Exam Physical Exam: Revealed a 64-year-old female in no distress. Head: Atraumatic, normocephalic. HEENT:[Neck is supple.] [No neck masses.] [No thyromegaly.] [No JVD.] PERRLA, EOMI, no icterus. Moist mucous membranes. Chest: [Clear throughout, no crackles, no rhonchi, no wheezes.] Cardiac Exam: Irregular irregular rhythm, 2/6 systolic murmur thought out to the precordium.. Abdomen: [Soft, nontender, no megaly, no rebound, no guarding, normal bowel sounds.] Extremities: [No clubbing, no edema, no cyanosis.] Neurological Exam: [No focal neurologic deficit.] Alert oriented 3. Psychiatric: Normal mood affect and normal mental status examination. Skin: No rashes. - Labs CBC & Chem 7: 04/17/19 20:00 04/19/19 08:40 Labs: Abnormal Lab Results - Last 24 Hours (Table) 04/19/19 Range/Units 08:40 Potassium 5.3 H (3.5-5.1) mmol/L BUN 32 H (7-17) mg/dL Glucose 252 H (74-99) mg/dL Magnesium 2.5 H (1.6-2.3) mg/dL Assessment and Plan Assessment: Impression: Acute dehydration, resolved. Acute kidney injury secondary to hypovolemia, resolved. Hypovolemic hyponatremia, resolved. Chronic hypoxic respiratory failure secondary to COPD Severe chronic obstructive pulmonary disease, O2 dependent and prednisone dependent, presently inactive. Chronic bibasilar atelectasis is noted on chest x-ray. Valvular heart disease including mitral regurgitation and pulmonary hypertension Benign essential hypertension Dyslipidemia History of chronic diastolic congestive heart failure. Recommendation: Obviously patient responded well to hydration. Her renal functioning is back to normal. Her COPD status is severe but stable. Cleared the patient for discharge planning today, and follow-up on outpatient basis. Time with Patient: Less than 30
[2019-04-20] MEDS ORDERED: LISINOPRIL 20 MG TAB PO SCH (09:00)
[2019-04-20] MEDS ORDERED: FUROSEMIDE 40 MG TAB PO SCH (09:00)
--- NOTE | 2019-04-22 23:18 | P.DS ---
Providers Date of admission: 04/17/19 21:04 Expected date of discharge: 04/19/19 Attending physician: Jose C Nuñez Consults: 04/17/19 21:03 Consult Physician Routine Consulting Provider: Bart Silva Consult Reason/Comments: chf Do you want consulting provider notified?: Yes Consult Physician Routine Consulting Provider: Mark Simpson Consult Reason/Comments: copd Do you want consulting provider notified?: Yes Consult Physician Routine Consulting Provider: Zara Mendoza Consult Reason/Comments: arf Do you want consulting provider notified?: Yes Primary care physician: Trevor Hamilton MD Hospital Course: Chief Complaint: Tired History of present complaint: This is a pleasant 64-year-old patient of Dr. Trevor Hamilton. Patient's pulm onologist is Dr. Simpson. Chronic stable medical conditions include hypertension, hyperlipidemia, mild cognitive impairment, hypothyroid, spinal stenosis, osteoarthritis, severe mitral and moderate tricuspid valve regurgitation, home oxygen 3.5 L. Paroxysmal atrial fibrillation . Patient presented with one-day history of feeling extremely tired. Feeling her belly was upset. Decreased appetite. Some fever and chills. She felt as if she had a stomach flu. No diarrhea. No urinary symptoms. Patient has a baseline short of breath nor do from there. No cough or phlegm. Admitted for the same. Started IV fluids. Feeling a bit better today. Patient thinks that her respiratory status no different than her baseline. Patient also went presenting here also somnolent tired and lethargic. Admitted with-acute kidney injury-prerenal, acute metabolic encephalopathy from pain medications in the setting of acute renal failure, acute viral gastritis. Patient's given IV fluids. BUN decreased from 68-32 and creatinine decreased from 2.36 down to 0.84. Dose of Lasix was cut back. And also patient's, Klonopin and Aldactone was discontinued. This was discussed in detail with patient on day of discharge. This can be further reviewed by the family doctor. Discussion and discharge planning more than 35 minutes Consultation: Dr. HYUN Trujillo from cardiogenic Dr. Menon from nephrology Dr. Morfin from pulmonary Physical examination: VITAL SIGNS: 97.6-94-18-129/83-97% on 3 L GENERAL: BMI 29.3, sitting up in bed, awake EYES: Pupils equal. Conjunctiva pale HEENT: External appearance of nose and ears normal, oral cavity normal NECK: JVD not raised; masses not palpable. HEART: Heart sounds regular, minimal edema. LUNGS: Respiratory rate increased, diminished breath sounds ABDOMEN: Soft, nontender, liver spleen not palpable, no masses palpable. PSYCH: Alert and oriented x3; mood and affect anxious DERMATOLOGICAL: Diffuse bruising INVESTIGATIONS, reviewed in the clinical context: -Bun 32 creatinine 0.84 Previous testing White count 12.2 hemoglobin 10.9 platelets 210 potassium 5 bun 68 creatinine 2.36 Patient's labs from 04/07/19 showed a bun of 35 and creatinine was 0.52 EKG tracing personally reviewed by me--sinus tachycardia Chest x-ray film personally reviewed by me-shows some chronic scarring 2-D echocardiogram from December 2018 shows EF of 60-65%, moderate pulmonary hypertension, moderate to severe mitral regurgitation, moderate concentric left medical hypertrophy Assessment: -Acute kidney injury suspect prerenal possibly from decreased oral intake, -Acute metabolic encephalopathy patient having multiple pain medications, especially the setting of acute renal failure -Acute viral gastritis causing acute GI symptoms. -Chronic hypoxic respiratory failure from COPD, on 3.5 L oxygen at home -Paroxysmal atrial fibrillation, currently sinus rhythm -COPD in an ex-smoker -Hyperlipidemia -Essential hypertension -Mild cognitive impairment -Hypothyroid -Chronic anxiety depression otherwise specified -Chronic gait dysfunction uses a cane and a walker Disposition: Home Patient Condition at Discharge: Good Plan - Discharge Summary Discharge Rx Participant: No New Discharge Prescriptions: Continue Simvastatin [Zocor] 20 mg PO HS Rivaroxaban [Xarelto] 20 mg PO HS Levothyroxine Sodium [Synthroid] 50 mcg PO DAILY DULoxetine HCL [Cymbalta] 60 mg PO DAILY Ipratropium-Albuterol Nebulize [Duoneb 0.5 mg-3 mg/3 ml Soln] 3 ml INHALATION RT-QID Tamsulosin [Flomax] 0.4 mg PO DAILY Polyethylene Glycol 3350 [Miralax] 17 gm PO DAILY PRN PRN Reason: Constipation Nitroglycerin Sl Tabs [Nitrostat] 0.4 mg SUBLINGUAL Q5M PRN tab PRN Reason: Chest Pain Aspirin 81 mg PO DAILY@1700 Budesonide-Formot 160-4.5 Mcg [Symbicort 160-4.5 Mcg Inhaler] 2 puff INHALATION RT-BID Digoxin [Lanoxin] 125 mcg PO DAILY predniSONE 10 mg PO DAILY oxyCODONE-APAP 10-325MG [Percocet 10-325 mg] 1 tab PO BID PRN #6 tab PRN Reason: Breakthrough Pain Pregabalin [Lyrica] 150 mg PO BID Morphine Sulfate ER [Ms Contin] 60 mg PO Q8H Montelukast [Singulair] 10 mg PO HS Metoprolol Tartrate [Lopressor] 25 mg PO BID@0800,1700 #60 tab Lisinopril [Zestril] 20 mg PO DAILY #30 tab Nystatin 100,000Unit/gm Cream [Mycostatin Cream] 1 applic TOPICAL BID #1 applic Diltiazem Cd [Cardizem CD] 180 mg PO DAILY Changed Furosemide [Lasix] 40 mg PO MOWEFR #0 Discontinued clonazePAM [KlonoPIN] 2 mg PO DAILY@0900 clonazePAM [KlonoPIN] 1 mg PO HS Spironolactone [Aldactone] 25 mg PO DAILY@0800 #30 tab Furosemide [Lasix] 40 mg PO DAILY@1400 #30 tab Discharge Medication List Simvastatin [Zocor] 20 mg PO HS 06/06/14 [History] DULoxetine HCL [Cymbalta] 60 mg PO DAILY 07/22/17 [History] Levothyroxine Sodium [Synthroid] 50 mcg PO DAILY 07/22/17 [History] Rivaroxaban [Xarelto] 20 mg PO HS 07/22/17 [History] Ipratropium-Albuterol Nebulize [Duoneb 0.5 mg-3 mg/3 ml Soln] 3 ml INHALATION RT-QID 06/01/18 [History] Polyethylene Glycol 3350 [Miralax] 17 gm PO DAILY PRN 12/30/18 [History] Tamsulosin [Flomax] 0.4 mg PO DAILY 12/30/18 [History] Nitroglycerin Sl Tabs [Nitrostat] 0.4 mg SUBLINGUAL Q5M PRN tab 01/15/19 [Rx] Aspirin 81 mg PO DAILY@1700 01/16/19 [History] Budesonide-Formot 160-4.5 Mcg [Symbicort 160-4.5 Mcg Inhaler] 2 puff INHALATION RT-BID 01/16/19 [History] Digoxin [Lanoxin] 125 mcg PO DAILY 01/16/19 [History] predniSONE 10 mg PO DAILY 01/16/19 [History] oxyCODONE-APAP 10-325MG [Percocet 10-325 mg] 1 tab PO BID PRN #6 tab 01/18/19 [Rx] Montelukast [Singulair] 10 mg PO HS 04/04/19 [History] Morphine Sulfate ER [Ms Contin] 60 mg PO Q8H 04/04/19 [History] Pregabalin [Lyrica] 150 mg PO BID 04/04/19 [History] Lisinopril [Zestril] 20 mg PO DAILY #30 tab 04/07/19 [Rx] Metoprolol Tartrate [Lopressor] 25 mg PO BID@0800,1700 #60 tab 04/07/19 [Rx] Nystatin 100,000Unit/gm Cream [Mycostatin Cream] 1 applic TOPICAL BID #1 applic 04/07/19 [Rx] Diltiazem Cd [Cardizem CD] 180 mg PO DAILY 04/17/19 [History] Furosemide [Lasix] 40 mg PO MOWEFR #0 04/19/19 [Rx] Follow up Appointment(s)/Referral(s): Bart Silva MD [STAFF PHYSICIAN] - 05/02/19 9:45 am Trevor Hamilton MD [Primary Care Provider] - 1-2 days [facility], [NON-STAFF] - Patient Instructions/Handouts: COPD (Chronic Obstructive Pulmonary Disease) (DC) Activity/Diet/Wound Care/Special Instructions: bmp - 3 days activity as tolerated heart healthy diet as tolerated Discharge Disposition: HOME SELF-CARE
== END 2019-04-19 13:41 | disposition home or self-care (01) ==
LOC: EC 19:10 → 5NMEDONC 21:04 → 6NMEDSUR 04-18 00:57
PROVIDERS: ADMIT Hospitalist; ATTEND Hospitalist
DX: N17.9 Acute kidney failure, unspecified (principal); G93.41 Metabolic encephalopathy; A08.4 Viral intestinal infection, unspecified; J96.11 Chronic respiratory failure with hypoxia; J44.1 Chronic obstructive pulmonary disease with (acute) exacerbation; I11.0 Hypertensive heart disease with heart failure; G31.84 Mild cognitive impairment of uncertain or unknown etiology; I48.0 Paroxysmal atrial fibrillation; E03.9 Hypothyroidism, unspecified; E78.5 Hyperlipidemia, unspecified; F41.8 Other specified anxiety disorders; R26.9 Unspecified abnormalities of gait and mobility; E86.0 Dehydration; E87.2 Acidosis; Z99.81 Dependence on supplemental oxygen; Z87.891 Personal history of nicotine dependence; E86.1 Hypovolemia; Z86.73 Personal history of transient ischemic attack (TIA), and cerebral infarction without residual deficits; Z86.711 Personal history of pulmonary embolism; M48.00 Spinal stenosis, site unspecified; I08.1 Rheumatic disorders of both mitral and tricuspid valves; R20.0 Anesthesia of skin; Z91.14 Patient's other noncompliance with medication regimen; M79.89 Other specified soft tissue disorders; M19.90 Unspecified osteoarthritis, unspecified site; I50.32 Chronic diastolic (congestive) heart failure; I27.20 Pulmonary hypertension, unspecified; J98.11 Atelectasis; G89.29 Other chronic pain; Z79.01 Long term (current) use of anticoagulants; Z79.899 Other long term (current) drug therapy; Z79.82 Long term (current) use of aspirin; Z79.51 Long term (current) use of inhaled steroids; Z79.890 Hormone replacement therapy; Z79.52 Long term (current) use of systemic steroids; Z79.891 Long term (current) use of opiate analgesic; Z88.0 Allergy status to penicillin; Z88.1 Allergy status to other antibiotic agents; Z91.041 Radiographic dye allergy status; Z88.8 Allergy status to other drugs, medicaments and biological substances; Z80.9 Family history of malignant neoplasm, unspecified
CPT/HCPCS: 96376 ×2; 96361 ×2; 96374; 99285; 36415; 94640 ×5; 94760; 93005; 83880; 80053; 80048 ×2; 82533; 82550; 83735 ×2; 84484 ×2; 85025; 85610; 85730; 71046 ×2; G0378 ×4; J2930 ×2; J7512 ×2

== ENCOUNTER 2019-04-23 22:47 | Observation (INO) | payer BC ==
[2019-04-24 00:14] LABS: Anisocytosis Slight; Basophils # (A) 0.1 k/uL (0-0.2); Basophils % (A) 1 %; Eosinophils # (A) 0.4 k/uL (0-0.7); Eosinophils % (A) 4 %; HCT 34.8 % (34.0-46.0); HGB 10.6 gm/dL (11.4-16.0); Hypochromasia Marked; Lymphocytes # (A) 1.4 k/uL (1.0-4.8); Lymphocytes % (A) 13 %; MCH 26.1 pg (25.0-35.0); MCHC 30.5 g/dL (31.0-37.0); MCV 85.6 fL (80.0-100.0); Mean Platelet Volume 7.6; Monocytes # (A) 0.5 k/uL (0-1.0); Monocytes % (A) 5 %; Neutrophils # (A) 8.1 k/uL (1.3-7.7); Neutrophils % (A) 76 %; Platelet Count 310 k/uL (150-450); RBC 4.06 m/uL (3.80-5.40); RDW 17.5 % (11.5-15.5); WBC 10.7 k/uL (3.8-10.6)
[2019-04-24 00:25] LABS: INR 1.2 (<1.2); Partial Thromboplastin Time 22.5 sec (22.0-30.0); Prothrombin Time 11.9 sec (9.0-12.0)
--- NOTE | 2019-04-24 00:27 | ED ---
Altered Mental Status HPI - General Chief Complaint: Back Pain/Injury Stated Complaint: back pain Time Seen by Provider: 04/23/19 23:10 Source: patient, EMS Mode of arrival: EMS - History of Present Illness Initial Comments: Patient is 64-year-old woman presenting to the hospital with multiple complaints. Most of the history is from the patient's and son, as the patient does have some mild confusion. The patient had been in the hospital related to elevated creatinine, which seemed to resolve with IV fluid. She was released on Tuesday. Patient's noted that she has been getting more and more fatigued and somnolent at home. She is having periods of confusion. She had a couple of falls at home. The patient does indicate she has low back pain following form of falls and she also had contusion to her left leg. MD Complaint: altered mental status, confusion -: days(s) Severity: moderate Consistency of Symptoms: waxing and waning, getting worse Context: trauma, COPD Associated Symptoms: other (Back pain) - Related Data Home Medications Medication Instructions Recorded Confirmed Simvastatin [Zocor] 20 mg PO HS 06/06/14 04/17/19 DULoxetine HCL [Cymbalta] 60 mg PO DAILY 07/22/17 04/17/19 Levothyroxine Sodium [Synthroid] 50 mcg PO DAILY 07/22/17 04/17/19 Rivaroxaban [Xarelto] 20 mg PO HS 07/22/17 04/17/19 Ipratropium-Albuterol Nebulize 3 ml INHALATION RT-QID 06/01/18 04/17/19 [Duoneb 0.5 mg-3 mg/3 ml Soln] Polyethylene Glycol 3350 [Miralax] 17 gm PO DAILY PRN 12/30/18 04/17/19 Tamsulosin [Flomax] 0.4 mg PO DAILY 12/30/18 04/17/19 Aspirin 81 mg PO DAILY@1700 01/16/19 04/17/19 Budesonide-Formot 160-4.5 Mcg 2 puff INHALATION RT-BID 01/16/19 04/17/19 [Symbicort 160-4.5 Mcg Inhaler] Digoxin [Lanoxin] 125 mcg PO DAILY 01/16/19 04/17/19 predniSONE 10 mg PO DAILY 01/16/19 04/17/19 Montelukast [Singulair] 10 mg PO HS 04/04/19 04/17/19 Morphine Sulfate ER [Ms Contin] 60 mg PO Q8H 04/04/19 04/17/19 Pregabalin [Lyrica] 150 mg PO BID 04/04/19 04/17/19 Diltiazem Cd [Cardizem CD] 180 mg PO DAILY 04/17/19 04/17/19 Previous Rx's Medication Instructions Recorded Nitroglycerin Sl Tabs [Nitrostat] 0.4 mg SUBLINGUAL Q5M PRN tab 01/15/19 oxyCODONE-APAP 10-325MG [Percocet 1 tab PO BID PRN #6 tab 01/18/19 10-325 mg] Lisinopril [Zestril] 20 mg PO DAILY #30 tab 04/07/19 Metoprolol Tartrate [Lopressor] 25 mg PO BID@0800,1700 #60 tab 04/07/19 Nystatin 100,000Unit/gm Cream 1 applic TOPICAL BID #1 applic 04/07/19 [Mycostatin Cream] Furosemide [Lasix] 40 mg PO MOWEFR #0 04/19/19 Allergies Allergy/AdvReac Type Severity Reaction Status Date / Time amoxicillin trihydrate Allergy Rash/Hives Verified 04/17/19 21:58 [From Augmentin] cefaclor [From Ceclor] Allergy Rash/Hives Verified 04/17/19 21:58 Iodinated Contrast Media Allergy Throat Verified 04/17/19 21:58 [Iodinated Contrast Media - Swelling IV Dye] Penicillins Allergy Rash/Hives Verified 04/17/19 21:58 potassium clavulanate Allergy Rash/Hives Verified 04/17/19 21:58 [From Augmentin] Review of Systems ROS Statement: Those systems with pertinent positive or pertinent negative responses have been documented in the HPI. ROS Other: All systems not noted in ROS Statement are negative. Constitutional: Reports: weakness. Denies: fever, chills Eyes: Denies: vision change Respiratory: Reports: dyspnea, wheezes. Denies: cough, hemoptysis Cardiovascular: Denies: chest pain, palpitations, orthopnea, syncope Gastrointestinal: Denies: abdominal pain, vomiting, diarrhea Genitourinary: Denies: dysuria Musculoskeletal: Reports: as per HPI, back pain Skin: Reports: as per HPI, lesions. Denies: rash Neurological: Reports: confusion. Denies: headache, weakness, numbness, paresthesias Past Medical History Past Medical History: Atrial Fibrillation, COPD, CVA/TIA, Hyperlipidemia, Hypertension, Memory Impairment, Pulmonary Embolus (PE), Thyroid Disorder Additional Past Medical History / Comment(s): CVA WITH LEFT SIDED EYE DROOP, NUMBNESS ALAN FINGERS, LEFT LEG SWELLING, DDD, SPINAL STENOSIS, severe mitral and moderate tricuspid valve regurgitation; memory impairment (short term per ) History of Any Multi-Drug Resistant Organisms: None Reported Past Surgical History: Back Surgery Additional Past Surgical History / Comment(s): d&c's, ALAN CATARACT SX Past Anesthesia/Blood Transfusion Reactions: No Reported Reaction Additional Past Anesthesia/Blood Transfusion Reaction / Comment(s): "anesthesia took more than usual, I didn't go under" Past Psychological History: Anxiety Smoking Status: Former smoker Past Alcohol Use History: None Reported Past Drug Use History: None Reported - Past Family History Sister(s) Family Medical History: Cancer Additional Family Medical History / Comment(s): breast Mother Family Medical History: Blood Disorder Additional Family Medical History / Comment(s): Mother from a type of blood disorder but pt cannot recall type. Father Additional Family Medical History / Comment(s): Father was "sickly" General Exam General appearance: alert, obtunded (Patient is somnolent but arousable to voice.) Head exam: Present: atraumatic, normocephalic Eye exam: Present: normal appearance, PERRL, EOMI. Absent: scleral icterus, conjunctival injection ENT exam: Present: mucous membranes dry Neck exam: Present: normal inspection, full ROM. Absent: tenderness, meningismus Respiratory exam: Present: wheezes. Absent: respiratory distress, rales, rhonchi, stridor, chest wall tenderness, accessory muscle use, decreased breath sounds Cardiovascular Exam: Present: regular rate, normal rhythm, normal heart sounds. Absent: systolic murmur, diastolic murmur, rubs, gallop GI/Abdominal exam: Present: soft. Absent: distended, tenderness, guarding, re bound, rigid, mass Extremities exam: Present: normal inspection, normal capillary refill. Absent: pedal edema, calf tenderness Back exam: Present: normal inspection, vertebral tenderness. Absent: CVA tenderness (R), CVA tenderness (L) Neurological exam: Present: alert, oriented X3, CN II-XII intact. Absent: motor sensory deficit Skin exam: Present: warm, dry, intact, normal color. Absent: rash Course Vital Signs 04/23/19 04/24/19 04/24/19 23:01 04:43 05:42 Temperature 97.8 F 100.2 F H Pulse Rate 95 100 98 Respiratory 16 18 Rate Blood Pressure 104/77 116/72 O2 Sat by Pulse 91 L 98 Oximetry 04/24/19 04/24/19 05:54 06:00 Temperature 99.2 F Pulse Rate 108 H 104 H Respiratory 18 Rate Blood Pressure 131/62 O2 Sat by Pulse 96 Oximetry Medical Decision Making - Medical Decision Making Patient is 64-year-old woman brought in for altered mental status. She does appear to have an acute metabolic encephalopathy. Clinical picture very c onsistent with CO2 retention but the pCO2 is only 50. Patient also found to have minimally elevated troponin. Case discussed with Dr. Nuñez and will consult pulmonology. - Lab Data Result diagrams: 04/23/19 23:57 04/23/19 23:57 Lab Results 04/23/19 04/23/19 04/23/19 Range/Units 23:57 23:57 23:57 WBC 10.7 H (3.8-10.6) k/uL RBC 4.06 (3.80-5.40) m/uL Hgb 10.6 L (11.4-16.0) gm/dL Hct 34.8 (34.0-46.0) % MCV 85.6 (80.0-100.0) fL MCH 26.1 (25.0-35.0) pg MCHC 30.5 L (31.0-37.0) g/dL RDW 17.5 H (11.5-15.5) % Plt Count 310 (150-450) k/uL Neutrophils % 76 % Lymphocytes % 13 % Monocytes % 5 % Eosinophils % 4 % Basophils % 1 % Neutrophils # 8.1 H (1.3-7.7) k/uL Lymphocytes # 1.4 (1.0-4.8) k/uL Monocytes # 0.5 (0-1.0) k/uL Eosinophils # 0.4 (0-0.7) k/uL Basophils # 0.1 (0-0.2) k/uL Hypochromasia Marked Anisocytosis Slight PT 11.9 (9.0-12.0) sec INR 1.2 H (<1.2) APTT 22.5 (22.0-30.0) sec D-Dimer 1.74 H (<0.60) mg/L FEU VBG pH (7.31-7.41) VBG pCO2 (37-51) mmHg VBG HCO3 (24-28) mmol/L Sodium 133 L (137-145) mmol/L Potassium 4.6 (3.5-5.1) mmol/L Chloride 94 L (98-107) mmol/L Carbon Dioxide 31 H (22-30) mmol/L Anion Gap 8 mmol/L BUN 13 (7-17) mg/dL Creatinine 0.56 (0.52-1.04) mg/dL Est GFR (CKD-EPI)AfAm >90 (>60 ml/min/1.73 sqM) Est GFR (CKD-EPI)NonAf >90 (>60 ml/min/1.73 sqM) Glucose 77 (74-99) mg/dL Plasma Lactic Acid Shailesh (0.7-2.0) mmol/L Calcium 8.8 (8.4-10.2) mg/dL Total Bilirubin 0.6 (0.2-1.3) mg/dL AST 29 (14-36) U/L ALT 19 (4-34) U/L Alkaline Phosphatase 92 (38-126) U/L Ammonia (<30) umol/L Troponin I (0.000-0.034) ng/mL Total Protein 5.9 L (6.3-8.2) g/dL Albumin 3.4 L (3.5-5.0) g/dL Urine Color Urine Appearance (Clear) Urine pH (5.0-8.0) Ur Specific [place] (1.001-1.035) Urine Protein (Negative) Urine Glucose (UA) (Negative) Urine Ketones (Negative) Urine Blood (Negative) Urine Nitrite (Negative) Urine Bilirubin (Negative) Urine Urobilinogen (<2.0) mg/dL Ur Leukocyte Esterase (Negative) Digoxin 0.9 ng/mL 04/23/19 04/23/19 04/24/19 Range/Units 23:57 23:57 01:19 WBC (3.8-10.6) k/uL RBC (3.80-5.40) m/uL Hgb (11.4-16.0) gm/dL Hct (34.0-46.0) % MCV (80.0-100.0) fL MCH (25.0-35.0) pg MCHC (31.0-37.0) g/dL RDW (11.5-15.5) % Plt Count (150-450) k/uL Neutrophils % % Lymphocytes % % Monocytes % % Eosinophils % % Basophils % % Neutrophils # (1.3-7.7) k/uL Lymphocytes # (1.0-4.8) k/uL Monocytes # (0-1.0) k/uL Eosinophils # (0-0.7) k/uL Basophils # (0-0.2) k/uL Hypochromasia Anisocytosis PT (9.0-12.0) sec INR (<1.2) APTT (22.0-30.0) sec D-Dimer (<0.60) mg/L FEU VBG pH 7.38 (7.31-7.41) VBG pCO2 51 (37-51) mmHg VBG HCO3 30 H (24-28) mmol/L Sodium (137-145) mmol/L Potassium (3.5-5.1) mmol/L Chloride (98-107) mmol/L Carbon Dioxide (22-30) mmol/L Anion Gap mmol/L BUN (7-17) mg/dL Creatinine (0.52-1.04) mg/dL Est GFR (CKD-EPI)AfAm (>60 ml/min/1.73 sqM) Est GFR (CKD-EPI)NonAf (>60 ml/min/1.73 sqM) Glucose (74-99) mg/dL Plasma Lactic Acid Shailesh 1.4 (0.7-2.0) mmol/L Calcium (8.4-10.2) mg/dL Total Bilirubin (0.2-1.3) mg/dL AST (14-36) U/L ALT (4-34) U/L Alkaline Phosphatase (38-126) U/L Ammonia <9 (<30) umol/L Troponin I 0.051 H* (0.000-0.034) ng/mL Total Protein (6.3-8.2) g/dL Albumin (3.5-5.0) g/dL Urine Color Urine Appearance (Clear) Urine pH (5.0-8.0) Ur Specific [place] (1.001-1.035) Urine Protein (Negative) Urine Glucose (UA) (Negative) Urine Ketones (Negative) Urine Blood (Negative) Urine Nitrite (Negative) Urine Bilirubin (Negative) Urine Urobilinogen (<2.0) mg/dL Ur Leukocyte Esterase (Negative) Digoxin ng/mL 04/24/19 Range/Units 03:39 WBC (3.8-10.6) k/uL RBC (3.80-5.40) m/uL Hgb (11.4-16.0) gm/dL Hct (34.0-46.0) % MCV (80.0-100.0) fL MCH (25.0-35.0) pg MCHC (31.0-37.0) g/dL RDW (11.5-15.5) % Plt Count (150-450) k/uL Neutrophils % % Lymphocytes % % Monocytes % % Eosinophils % % Basophils % % Neutrophils # (1.3-7.7) k/uL Lymphocytes # (1.0-4.8) k/uL Monocytes # (0-1.0) k/uL Eosinophils # (0-0.7) k/uL Basophils # (0-0.2) k/uL Hypochromasia Anisocytosis PT (9.0-12.0) sec INR (<1.2) APTT (22.0-30.0) sec D-Dimer (<0.60) mg/L FEU VBG pH (7.31-7.41) VBG pCO2 (37-51) mmHg VBG HCO3 (24-28) mmol/L Sodium (137-145) mmol/L Potassium (3.5-5.1) mmol/L Chloride (98-107) mmol/L Carbon Dioxide (22-30) mmol/L Anion Gap mmol/L BUN (7-17) mg/dL Creatinine (0.52-1.04) mg/dL Est GFR (CKD-EPI)AfAm (>60 ml/min/1.73 sqM) Est GFR (CKD-EPI)NonAf (>60 ml/min/1.73 sqM) Glucose (74-99) mg/dL Plasma Lactic Acid Shailesh (0.7-2.0) mmol/L Calcium (8.4-10.2) mg/dL Total Bilirubin (0.2-1.3) mg/dL AST (14-36) U/L ALT (4-34) U/L Alkaline Phosphatase (38-126) U/L Ammonia (<30) umol/L Troponin I (0.000-0.034) ng/mL Total Protein (6.3-8.2) g/dL Albumin (3.5-5.0) g/dL Urine Color Yellow Urine Appearance Clear (Clear) Urine pH 5.5 (5.0-8.0) Ur Specific [place] 1.019 (1.001-1.035) Urine Protein Negative (Negative) Urine Glucose (UA) Negative (Negative) Urine Ketones 1+ H (Negative) Urine Blood Negative (Negative) Urine Nitrite Negative (Negative) Urine Bilirubin Negative (Negative) Urine Urobilinogen <2.0 (<2.0) mg/dL Ur Leukocyte Esterase Negative (Negative) Digoxin ng/mL - EKG Data -: EKG Interpreted by Md EKG shows normal: axis (Normal), intervals (Normal), QRS complexes (Normal), ST- T waves (Normal) Rate: tachycardia (107 bpm) Interpretation: other (Atrial fibrillation with ventricular rate approximately 107 bpm) Disposition
[2019-04-24 00:36] LABS: Ammonia <9 umol/L (<30); Lactic Acid, Venous 1.4 mmol/L (0.7-2.0)
[2019-04-24 00:37] LABS: ALT 19 U/L (4-34); AST 29 U/L (14-36); African American GFR (CKD) >90 (>60 ml/min/1.73 sqM); Albumin 3.4 g/dL (3.5-5.0); Alkaline Phosphatase 92 U/L (38-126); Anion Gap 8 mmol/L; Blood Urea Nitrogen 13 mg/dL (7-17); Calcium 8.8 mg/dL (8.4-10.2); Carbon Dioxide 31 mmol/L (22-30); Chloride 94 mmol/L (98-107); Digoxin 0.9 ng/mL; Glucose 77 mg/dL (74-99); Non-African American GFR(CKD) >90 (>60 ml/min/1.73 sqM); Potassium 4.6 mmol/L (3.5-5.1); Sodium 133 mmol/L (137-145); Total Bilirubin 0.6 mg/dL (0.2-1.3); Total Protein 5.9 g/dL (6.3-8.2)
[2019-04-24 00:38] LABS: D-Dimer 1.74 mg/L FEU (<0.60)
--- NOTE | 2019-04-24 01:08 | CT ---
EXAMINATION TYPE: CT lumbar spine wo con DATE OF EXAM: 04/24/2019 COMPARISON: None HISTORY: Patient presents with lower back pain after falls. CT DLP: 1417.60 mGycm Automated exposure control for dose reduction was used. Multiple axial sections were obtained from T12 to S3 vertebra with no contrast. The lumbar vertebra mild levoscoliosis. There is narrowing of disc spaces throughout the lumbar spine and more severe at L2-3 and L3-4 with vacuum disc. There is no compression fracture. There is no josee dence of lumbar paraspinal mass. Abdominal aorta is atheromatous. There is L2-3 spinal stenosis due t o calcified posterior disc herniation and facet arthropathy. I see no focal bone destruction. Abdomin al aorta is atheromatous. 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 There is bilateral L5 spondylolysis. There is no spondylolisthesis. The sacroiliac joints are intact. IMPRESSION: Multilevel spondylotic changes. L2-3 spinal stenosis. L5 spondylolysis. No acute bony abnormality.
--- NOTE | 2019-04-24 01:09 | CT ---
EXAMINATION TYPE: CT brain wo con DATE OF EXAM: 04/24/2019 COMPARISON: None HISTORY: Patient presents with AMS. CT DLP: 1060.40 mGycm Automated exposure control for dose reduction was used. Multiple axial sections were obtained of the brain without contrast. Ventricles have normal size. There is no mass effect nor midline shift. There is no sign of intracran ial hemorrhage. The calvarium is intact. There is no evidence of cerebral edema. IMPRESSION: Negative head CT scan.
[2019-04-24 01:35] LABS: VBG PH 7.38 (7.31-7.41)
[2019-04-24] MEDS ORDERED: diphenhydrAMINE 50 MG/ML 1 ML VIAL IVP STA (02:04)
[2019-04-24] MEDS ORDERED: FAMOTIDINE 20 MG/2 ML VIAL IV STA (02:04)
[2019-04-24] MEDS ORDERED: methylPREDNISolone SOD SUCCI 125 MG/2 ML VIAL IV STA (02:04)
--- NOTE | 2019-04-24 02:44 | CT ---
EXAMINATION TYPE: CT chest angio for PE DATE OF EXAM: 04/24/2019 COMPARISON: None HISTORY: Patient presents with elevated d-dimer. CT DLP: 561.3 mGycm Automated exposure control for dose reduction was used. CONTRAST: Performed with IV Contrast, patient injected with 55mL mL of Isovue 370. There are 3-D post processed images. There is some patchy interstitial infiltrates and atelectasis in the mid and lower lung russell. There is some infiltrate in the left upper lobe adjacent to the major fissure. Thoracic aorta is atheromatous. There is no aneurysm or dissection. There are no hilar masses. I see no filling defects in the pulmonary arteries. There is no mediastinal adenopathy. There are no hilar masses. Heart size is fairly normal. There is pleural thickening at the posterior lung bases. There is some spurring in the thoracic spine. There is slight anterior wedging of T9 and T8 vertebra up to 20%. IMPRESSION: Pulmonary interstitial fibrotic changes and scarring and atelectasis in the mid and lower lung russell . No evidence of pulmonary embolism.
[2019-04-24 03:51] LABS: Appearance,Urine Clear (Clear); Bilirubin,Urine Negative (Negative); Blood,Urine Negative (Negative); Color,Urine Yellow; Glucose,Urine (UA) Negative (Negative); Ketones,Urine 1+ (Negative); Leukocyte Esterase,Urine Negative (Negative); Nitrite,Urine Negative (Negative); PH, Urine 5.5 (5.0-8.0); Protein,Urine Negative (Negative); Specific Gravity,Urine 1.019 (1.001-1.035); Urobilinogen,Urine <2.0 mg/dL (<2.0)
[2019-04-24] MEDS ORDERED: NITROGLYCERIN SL TABS 0.4 MG TAB SUBLINGUAL PRN (04:10)
[2019-04-24] MEDS ORDERED: oxyCODONE-APAP 10-325MG 1 EACH TAB PO PRN (04:14)
[2019-04-24] MEDS ORDERED: POLYETHYLENE GLYCOL 3350 17 GM POWD.PACK PO PRN (04:14)
[2019-04-24] MEDS ORDERED: IPRATROPIUM-ALBUTEROL 3 ML NEB INHALATION STA (04:56)
[2019-04-24] MEDS: SODIUM CHLORIDE 0.9% 1,000 ML IV SCH ×3 (05:56→23:22)
[2019-04-24] MEDS: MORPHINE SULFATE ER 60 MG TABLET PO SCH ×2 (06:24→20:10)
[2019-04-24] MEDS: LEVOTHYROXINE 50 MCG TAB PO SCH (06:45)
[2019-04-24] MEDS ORDERED: SULFAMETHOX-TMP 80-16MG/ML 320 MG in DEXTROSE 5% IN WATER 500 ML IVPB SCH ×2 (09:00)
[2019-04-24] MEDS ORDERED: PREGABALIN 75 MG CAP PO SCH (09:00)
[2019-04-24] MEDS: METOPROLOL TARTRATE 25 MG TAB PO SCH ×2 (09:08→20:34)
[2019-04-24] MEDS: MONTELUKAST 10 MG TAB PO SCH ×2 (09:09→20:35)
[2019-04-24] MEDS: NYSTATIN 100,000UNIT/GM CREAM 30 GM TUBE TOPICAL SCH ×2 (09:09→20:38)
[2019-04-24] MEDS: LISINOPRIL 20 MG TAB PO SCH (09:09)
[2019-04-24] MEDS: DILTIAZEM CD 180 MG CAP.ER.24H PO SCH (09:09)
[2019-04-24] MEDS: DULoxetine HCL 30 MG CAPSULE.DR PO SCH (09:09)
[2019-04-24] MEDS: DIGOXIN 125 MCG TAB PO SCH (09:10)
[2019-04-24] MEDS: TAMSULOSIN 0.4 MG CAP.ER.24H PO SCH (09:12)
[2019-04-24] MEDS: predniSONE 10 MG TAB PO SCH (09:16)
[2019-04-24] MEDS: IPRATROPIUM-ALBUTEROL 3 ML NEB INHALATION SCH ×4 (12:07→21:44)
[2019-04-24] MEDS: SYMBICORT 160-4.5 MCG INHALER INHALATION SCH ×2 (12:07→21:44)
--- NOTE | 2019-04-24 13:21 | P.CNNES ---
History of Present Illness Consult date: 04/24/19 Requesting physician: Edmar Chauhan Reason for Consult: altered mental status History of Present Illness: Patient is a 64-year-old female, who was brought to the hospital for multiple complaints. Patient at present is very somnolent, keeps on dozing off while talking or being examined. Patient not able to provide any history. Patient states that she came to the hospital because of "pain in the knee". No family m embers are available. According to the electronic medical records, patient has some mild confusion. Patient has been complaining of more fatigue, somnolent at home. She is having periods of confusion. She had a couple falls at home. Patient has chronic back issues. Patient underwent computed tomography scan of the head, which was normal. The ventricles are normal in size. CT of the lumbar spine showed multilevel spondylotic changes. L2-3 spinal stenosis. L5 spondylosis. No acute bony abnormality. CTA of the chest showed pulmonary interstitial fibrotic changes and scarring and atelectasis in the mid and lower lung russell. EKG shows atrial fibrillation with rapid ventricular rate. Patient's blood test shows WBC 10.7 hemoglobin 10.6 and platelets are 310. Her last ABG from 01/17/2019 showed showed pH 7.45, pCO2 59, pO2 53 and saturation 87.8%. Her current VBG showed pH 7.38, pCO2 51. Sodium 133 potassium 4.6 renal functions are normal. Liver functions normal, ammonia normal. Vitamin B12 is 339 on 02/02/2019 folate 10.5. TSH is decreased 0.202 and free T3 2.0. UA mina wed rare bacteria. Patient's last 2-D echo from 01/02/2019 showed EF 60-65%. Moderate concentric LVH. Normal left atrial size. Moderate to severe mitral regurgitation. Review of Systems Cannot be assessed due to patient's mental status. Patient keeps on dozing off. Patient did state that she does not have headache. ROS unobtainable: due to mental status Past Medical History Past Medical History: Atrial Fibrillation, COPD, CVA/TIA, Hyperlipidemia, Hypertension, Memory Impairment, Pulmonary Embolus (PE), Thyroid Disorder Additional Past Medical History / Comment(s): CVA WITH LEFT SIDED EYE DROOP, NUMBNESS ALAN FINGERS, LEFT LEG SWELLING, DDD, SPINAL STENOSIS, severe mitral and moderate tricuspid valve regurgitation; memory impairment (short term per ) History of Any Multi-Drug Resistant Organisms: None Reported Past Surgical History: Back Surgery Additional Past Surgical History / Comment(s): d&c's, ALAN CATARACT SX Past Anesthesia/Blood Transfusion Reactions: No Reported Reaction Additional Past Anesthesia/Blood Transfusion Reaction / Comment(s): "anesthesia took more than usual, I didn't go under" Past Psychological History: Anxiety Smoking Status: Former smoker Past Alcohol Use History: None Reported Past Drug Use History: None Reported - Past Family History Sister(s) Family Medical History: Cancer Additional Family Medical History / Comment(s): breast Mother Family Medical History: Blood Disorder Additional Family Medical History / Comment(s): Mother from a type of blood disorder but pt cannot recall type. Father Additional Family Medical History / Comment(s): Father was "sickly" Medications and Allergies Home Medications Medication Instructions Recorded Confirmed Type Simvastatin [Zocor] 20 mg PO HS 06/06/14 04/24/19 History DULoxetine HCL [Cymbalta] 60 mg PO DAILY 07/22/17 04/24/19 History Levothyroxine Sodium [Synthroid] 50 mcg PO DAILY 07/22/17 04/24/19 History Rivaroxaban [Xarelto] 20 mg PO HS 07/22/17 04/24/19 History Ipratropium-Albuterol Nebulize 3 ml INHALATION RT-QID 06/01/18 04/24/19 History [Duoneb 0.5 mg-3 mg/3 ml Soln] Polyethylene Glycol 3350 [Miralax] 17 gm PO DAILY PRN 12/30/18 04/24/19 History Tamsulosin [Flomax] 0.4 mg PO DAILY 12/30/18 04/24/19 History Nitroglycerin Sl Tabs [Nitrostat] 0.4 mg SUBLINGUAL Q5M PRN tab 01/15/19 04/24/19 Rx Aspirin 81 mg PO DAILY@1700 01/16/19 04/24/19 History Budesonide-Formot 160-4.5 Mcg 2 puff INHALATION RT-BID 01/16/19 04/24/19 History [Symbicort 160-4.5 Mcg Inhaler] Digoxin [Lanoxin] 125 mcg PO DAILY 01/16/19 04/24/19 History predniSONE 10 mg PO DAILY 01/16/19 04/24/19 History oxyCODONE-APAP 10-325MG [Percocet 1 tab PO BID PRN #6 tab 01/18/19 04/24/19 Rx 10-325 mg] Montelukast [Singulair] 10 mg PO HS 04/04/19 04/24/19 History Morphine Sulfate ER [Ms Contin] 60 mg PO Q8H 04/04/19 04/24/19 History Pregabalin [Lyrica] 150 mg PO BID 04/04/19 04/24/19 History Lisinopril [Zestril] 20 mg PO DAILY #30 tab 04/07/19 04/24/19 Rx Metoprolol Tartrate [Lopressor] 25 mg PO BID@0800,1700 #60 tab 04/07/19 04/24/19 Rx Nystatin 100,000Unit/gm Cream 1 applic TOPICAL BID #1 applic 04/07/19 04/24/19 Rx [Mycostatin Cream] Diltiazem Cd [Cardizem CD] 180 mg PO DAILY 04/17/19 04/24/19 History Furosemide [Lasix] 40 mg PO MOWEFR #0 04/19/19 04/24/19 Rx Allergies Allergy/AdvReac Type Severity Reaction Status Date / Time amoxicillin trihydrate Allergy Rash/Hives Verified 04/24/19 08:59 [From Augmentin] cefaclor [From Ceclor] Allergy Rash/Hives Verified 04/24/19 08:59 Iodinated Contrast Media Allergy Throat Verified 04/24/19 08:59 [Iodinated Contrast Media - Swelling IV Dye] Penicillins Allergy Rash/Hives Verified 04/24/19 08:59 potassium clavulanate Allergy Rash/Hives Verified 04/24/19 08:59 [From Augmentin] Physical Examination - Vital Signs Vital Signs: Vital Signs Temp Pulse Resp BP Pulse Ox 04/24/19 12:43 74 04/24/19 12:34 72 04/24/19 11:45 98.1 F 62 18 142/71 95 04/24/19 11:10 84 20 155/67 98 04/24/19 08:00 100 18 137/68 94 L 04/24/19 06:00 99.2 F 104 H 18 131/62 96 04/24/19 05:54 108 H 04/24/19 05:42 98 04/24/19 04:43 100.2 F H 100 18 116/72 98 04/23/19 23:01 97.8 F 95 16 104/77 91 L Intake and Output 04/23/19 04/24/19 04/24/19 22:59 06:59 14:59 Other: Voiding Method Bedside Commode Diaper Weight 76.204 kg On examination patient is a late middle aged female, who is very somnolent, slightly encephalopathic. Patient opens her eyes, but then again closes it. Her speech appears clear with no obvious aphasia although patient did not speak much. Patient states it is the year 2019. Could not tell what month is it, or which building we are in. Patient could not tell the CT or the state or the name of the current president. On cranial examination pupils are round and reactive to light, visual russell appears full. Face is symmetric and tongue protrudes the midline. On muscle strength testing the patient complains of pain in her shoulder region. Patient has bilateral myoclonus and asterixis. Improvement Intern is equal, biceps and triceps are normal. Muscle strength appears equal in the lower extremities although patient did not cooperate. Patient has some hemorrhagic blisters in bilateral lower limbs, left side worse. Reflexes are symmetric and plantars are withdrawal bilaterally. Tone and bulk of muscles normal. Gait deferred. Cerebellar functions could not be tested. Sensory could not be tested reliably. Results - Laboratory Findings CBC and BMP: 04/23/19 23:57 04/23/19 23:57 Abnormal Lab Findings: Abnormal Labs 04/23/19 04/23/19 04/23/19 23:57 23:57 23:57 WBC 10.7 H Hgb 10.6 L MCHC 30.5 L RDW 17.5 H Neutrophils # 8.1 H INR 1.2 H D-Dimer 1.74 H VBG HCO3 Sodium 133 L Chloride 94 L Carbon Dioxide 31 H Troponin I Total Protein 5.9 L Albumin 3.4 L Urine Ketones 04/23/19 04/24/19 04/24/19 23:57 01:19 03:39 WBC Hgb MCHC RDW Neutrophils # INR D-Dimer VBG HCO3 30 H Sodium Chloride Carbon Dioxide Troponin I 0.051 H* Total Protein Albumin Urine Ketones 1+ H 02/11/20 04:27 WBC Hgb MCHC RDW Neutrophils # INR D-Dimer VBG HCO3 Sodium Chloride Carbon Dioxide Troponin I 0.040 H* Total Protein Albumin Urine Ketones Assessment and Plan Assessment: * Altered mental status, likely related to toxic metabolic encephalopathy. Patient has obvious asterixis, consistent with metabolic encephalopathy. Patient probably has COPD exacerbation. * Atrial fibrillation with rapid ventricular rate, currently on anticoagulation with Xarelto. * Anemia * Dyslipidemia * X tobacco use. Plan: * Your medical management for treatment of underlying cardiopulmonary disease/COPD exacerbation. * We will check carotid Doppler to rule out carotid stenosis. * Patient has atrial fibrillation, currently on Xarelto. Continue Xarelto for stroke prevention. * We will follow clinically.
--- NOTE | 2019-04-24 14:58 | US ---
EXAMINATION TYPE: US carotid duplex BILAT DATE OF EXAM: 04/24/2019 COMPARISON: NONE CLINICAL HISTORY: Altered mental status. Altered mental status EXAM MEASUREMENTS: RIGHT: Peak Systolic Velocity (PSV) cm/sec ----- Right CCA: 69.9 ----- Right ICA: 83.8 ----- Right ECA: 99.3 ICA/CCA ratio: 1.2 RIGHT: End Diastole cm/sec ----- Right CCA: 7.3 ----- Right ICA: 22.1 ----- Right ECA: 5.6 LEFT: Peak Systolic Velocity (PSV) cm/sec ----- Left CCA: 71.9 ----- Left ICA: 118.0 ----- Left ECA: 109.1 ICA/CCA ratio: 1.6 LEFT: End Diastole cm/sec ----- Left CCA: 12.9 ----- Left ICA: 21.6 ----- Left ECA: 9.8 VERTEBRALS (direction of flow): Right Vertebral: Antegrade Left Vertebral: Antegrade Rhythm: Normal Difficult and limited study due to patient motion Bilateral intimal thickening, minimal plaque bilateral bulb, no elevated velocities, no significant s tenosis. IMPRESSION: No evidence for hemodynamically significant stenosis. Criteria for Assigning % of Stenosis / Diameter reduction (Estimation based on the indirect measurements of the internal carotid artery velocities (ICA PSV). 1. Normal (no stenosis)=ICA PSV < 125 cm/s: ratio < 2.0: ICA EDV<40 cm/s. 2. Less than 50% stenosis=ICA PSV < 125 cm/s: ratio < 2.0: ICA EDV<40 cm/s. 3. 50 to 69% stenosis=ICA PSV of 125 to 230 cm/s: ration 2.0 ? 4.0: ICA EDV 40-100 cm/s. 4. Greater than 70% stenosis to near occlusion= ICA PSV > 230 cm/s: ratio > 4.0: ICA EDV > 100 cm/s. 5. Near occlusion= ICA PSV velocities may be low or undetectable: variable ratio and ICA EDV. 6. Total occlusion=unable to detect flow.
--- NOTE | 2019-04-24 15:35 | P.HPIM ---
History of Present Illness H&P Date: 04/24/19 Chief Complaint: Lethargic Chief Complaint: Tired History of present complaint: This is a pleasant 64-year-old patient of Dr. Trevor Hamilton. 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 Chronic stable medical conditions include hypertension, hyperlipidemia, mild cognitive impairment, hypothyroid, spinal stenosis, osteoarthritis, severe mitral and moderate tricuspid valve regurgitation, home oxygen 3.5 L. Paroxysmal atrial fibrillation . Takes medication for chronic pain. Patient was admitted on April 17 and discharged on April 19. Was admitted with acute kidney injury prerenal from decreased oral intake, acute metabolic encephalopathy from multiple pain medications. When she was discharged and did discuss at length with the patient about the pain medications. I had stopped her Klonopin. Patient still taking the morphine long-acting and Percocet. Patient is brought into the ER by the and son has become rather lethargi c. No focal symptoms. Tired rundown. No fever or chills reported. Patient just about arousable the doses off. Consultations made to nephrology and cardiology because of a troponin leak. Apparently the patient took a fall at home. With some low back pain. Review of systems: Unable to do as patient rather lethargic Past medical history to include: Hypertension, hyperlipidemia, mild cognitive impairment, hypothyroid, spinal stenosis, osteoarthritis, severe mitral and moderate tricuspid valve regurgitation, paroxysmal atrial fibrillation, COPD, chronic pain syndrome Social history: smoked half a pack a day for over 45 years until recently. . Uses a walker. Home oxygen 3.5 L Physical examination: VITAL SIGNS: 99.4-624-84-131/62-96% on 5 L GENERAL: BMI 30.7, laying in bed, lethargic not in distress EYES: Pupils equal. Conjunctiva pale HEENT: External appearance of nose and ears normal, oral cavity normal NECK: JVD not raised; masses not palpable. HEART: Heart sounds regular, minimal edema. LUNGS: Respiratory rate increased, diminished breath sounds ABDOMEN: Soft, nontender, liver spleen not palpable, no masses palpable. PSYCH: Lethargic but arousable NEUROLOGICAL: Cranial nerves grossly intact; no facial asymmetry, power and sensation grossly intact. LYMPHATICS: No lymph nodes palpable in the axilla and neck DERMATOLOGICAL: Diffuse bruising INVESTIGATIONS, reviewed in the clinical context: White count 10.7 hemoglobin 10.6 platelets 310 potassium 4.6 creatinine 0.56 2-D echocardiogram from December 2018 shows EF of 60-65%, moderate pulmonary hypertension, moderate to severe mitral regurgitation, moderate concentric left medical hypertrophy EKG tracing-personally reviewed by me shows atrial flutter fibrillation with a rate around 107 Computed tomography scan brain-acute Chest CTA-fibrotic changes, no PE Computed tomography scan-lumbar spine-evidence of OA, spinal stenosis, no fracture reported Assessment: -Acute metabolic encephalopathy patient morphine scheduled and Percocet. Patient's Klonopin was discontinued of the last admission. Unsure if patient is taking that at home again. There are no focal symptoms. UA unremarkable. No respiratory symptoms. Clinically stroke, seizure unlikely -Chronic hypoxic respiratory failure from COPD, on 3.5 L oxygen at home -Paroxysmal atrial fibrillation/flutter, currently rate controlled -COPD in an ex-smoker -Chronic pulmonary fibrosis -Hyperlipidemia -Essential hypertension -Mild cognitive impairment -Hypothyroid -Chronic anxiety depression otherwise specified -Chronic gait dysfunction uses a cane and a walker -Chronic osteoarthritis multiple joints including lumbar spine Plan: At this point we'll discontinue patient narcotics including morphine and Percocet. When patient comes alone today continues to the smaller dose.. Other medications are to continue. Consultation made to neurology, cardiology.. No family the bedside. We will do neuro checks. And fall precautions. Past Medical History Past Medical History: Atrial Fibrillation, COPD, CVA/TIA, Hyperlipidemia, Hypertension, Memory Impairment, Pulmonary Embolus (PE), Thyroid Disorder Additional Past Medical History / Comment(s): CVA WITH LEFT SIDED EYE DROOP, NUMBNESS ALAN FINGERS, LEFT LEG SWELLING, DDD, SPINAL STENOSIS, severe mitral and moderate tricuspid valve regurgitation; memory impairment (short term per ) History of Any Multi-Drug Resistant Organisms: None Reported Past Surgical History: Back Surgery Additional Past Surgical History / Comment(s): d&c's, ALAN CATARACT SX Past Anesthesia/Blood Transfusion Reactions: No Reported Reaction Additional Past Anesthesia/Blood Transfusion Reaction / Comment(s): "anesthesia took more than usual, I didn't go under" Past Psychological History: Anxiety Smoking Status: Former smoker Past Alcohol Use History: None Reported Past Drug Use History: None Reported - Past Family History Sister(s) Family Medical History: Cancer Additional Family Medical History / Comment(s): breast Mother Family Medical History: Blood Disorder Additional Family Medical History / Comment(s): Mother from a type of blood disorder but pt cannot recall type. Father Additional Family Medical History / Comment(s): Father was "sickly" Medications and Allergies Home Medications Medication Instructions Recorded Confirmed Type Simvastatin [Zocor] 20 mg PO HS 06/06/14 04/24/19 History DULoxetine HCL [Cymbalta] 60 mg PO DAILY 07/22/17 04/24/19 History Levothyroxine Sodium [Synthroid] 50 mcg PO DAILY 07/22/17 04/24/19 History Rivaroxaban [Xarelto] 20 mg PO HS 07/22/17 04/24/19 History Ipratropium-Albuterol Nebulize 3 ml INHALATION RT-QID 06/01/18 04/24/19 History [Duoneb 0.5 mg-3 mg/3 ml Soln] Polyethylene Glycol 3350 [Miralax] 17 gm PO DAILY PRN 12/30/18 04/24/19 History Tamsulosin [Flomax] 0.4 mg PO DAILY 12/30/18 04/24/19 History Nitroglycerin Sl Tabs [Nitrostat] 0.4 mg SUBLINGUAL Q5M PRN tab 01/15/19 04/24/19 Rx Aspirin 81 mg PO DAILY@1700 01/16/19 04/24/19 History Budesonide-Formot 160-4.5 Mcg 2 puff INHALATION RT-BID 01/16/19 04/24/19 History [Symbicort 160-4.5 Mcg Inhaler] Digoxin [Lanoxin] 125 mcg PO DAILY 01/16/19 04/24/19 History predniSONE 10 mg PO DAILY 01/16/19 04/24/19 History oxyCODONE-APAP 10-325MG [Percocet 1 tab PO BID PRN #6 tab 01/18/19 04/24/19 Rx 10-325 mg] Montelukast [Singulair] 10 mg PO HS 04/04/19 04/24/19 History Morphine Sulfate ER [Ms Contin] 60 mg PO Q8H 04/04/19 04/24/19 History Pregabalin [Lyrica] 150 mg PO BID 04/04/19 04/24/19 History Lisinopril [Zestril] 20 mg PO DAILY #30 tab 04/07/19 04/24/19 Rx Metoprolol Tartrate [Lopressor] 25 mg PO BID@0800,1700 #60 tab 04/07/19 04/24/19 Rx Nystatin 100,000Unit/gm Cream 1 applic TOPICAL BID #1 applic 04/07/19 04/24/19 Rx [Mycostatin Cream] Diltiazem Cd [Cardizem CD] 180 mg PO DAILY 04/17/19 04/24/19 History Furosemide [Lasix] 40 mg PO MOWEFR #0 04/19/19 04/24/19 Rx Allergies Allergy/AdvReac Type Severity Reaction Status Date / Time amoxicillin trihydrate Allergy Rash/Hives Verified 04/24/19 08:59 [From Augmentin] cefaclor [From Ceclor] Allergy Rash/Hives Verified 04/24/19 08:59 Iodinated Contrast Media Allergy Throat Verified 04/24/19 08:59 [Iodinated Contrast Media - Swelling IV Dye] Penicillins Allergy Rash/Hives Verified 04/24/19 08:59 potassium clavulanate Allergy Rash/Hives Verified 04/24/19 08:59 [From Augmentin] Physical Exam Vitals: Vital Signs Temp Pulse Resp BP Pulse Ox 04/24/19 08:00 100 18 137/68 94 L 04/24/19 06:00 99.2 F 104 H 18 131/62 96 04/24/19 05:54 108 H 04/24/19 05:42 98 04/24/19 04:43 100.2 F H 100 18 116/72 98 04/23/19 23:01 97.8 F 95 16 104/77 91 L Intake and Output 04/23/19 04/24/19 04/24/19 22:59 06:59 14:59 Other: Weight 76.204 kg Results CBC & Chem 7: 04/23/19 23:57 04/23/19 23:57 Labs: Abnormal Lab Results - Last 24 Hours (Table) 04/23/19 04/23/19 04/23/19 Range/Units 23:57 23:57 23:57 WBC 10.7 H (3.8-10.6) k/uL Hgb 10.6 L (11.4-16.0) gm/dL MCHC 30.5 L (31.0-37.0) g/dL RDW 17.5 H (11.5-15.5) % Neutrophils # 8.1 H (1.3-7.7) k/uL INR 1.2 H (<1.2) D-Dimer 1.74 H (<0.60) mg/L FEU VBG HCO3 (24-28) mmol/L Sodium 133 L (137-145) mmol/L Chloride 94 L (98-107) mmol/L Carbon Dioxide 31 H (22-30) mmol/L Troponin I (0.000-0.034) ng/mL Total Protein 5.9 L (6.3-8.2) g/dL Albumin 3.4 L (3.5-5.0) g/dL Urine Ketones (Negative) 04/23/19 04/24/19 04/24/19 Range/Units 23:57 01:19 03:39 WBC (3.8-10.6) k/uL Hgb (11.4-16.0) gm/dL MCHC (31.0-37.0) g/dL RDW (11.5-15.5) % Neutrophils # (1.3-7.7) k/uL INR (<1.2) D-Dimer (<0.60) mg/L FEU VBG HCO3 30 H (24-28) mmol/L Sodium (137-145) mmol/L Chloride (98-107) mmol/L Carbon Dioxide (22-30) mmol/L Troponin I 0.051 H* (0.000-0.034) ng/mL Total Protein (6.3-8.2) g/dL Albumin (3.5-5.0) g/dL Urine Ketones 1+ H (Negative) 04/24/19 Range/Units 04:27 WBC (3.8-10.6) k/uL Hgb (11.4-16.0) gm/dL MCHC (31.0-37.0) g/dL RDW (11.5-15.5) % Neutrophils # (1.3-7.7) k/uL INR (<1.2) D-Dimer (<0.60) mg/L FEU VBG HCO3 (24-28) mmol/L Sodium (137-145) mmol/L Chloride (98-107) mmol/L Carbon Dioxide (22-30) mmol/L Troponin I 0.040 H* (0.000-0.034) ng/mL Total Protein (6.3-8.2) g/dL Albumin (3.5-5.0) g/dL Urine Ketones (Negative)
[2019-04-24] MEDS: ASPIRIN 81 MG PO SCH (20:34)
[2019-04-24] MEDS: RIVAROXABAN 20 MG TAB PO SCH (20:35)
[2019-04-24] MEDS: ATORVASTATIN 10 MG TAB PO SCH (20:35)
--- NOTE | 2019-04-24 20:47 | CONS ---
CONSULTATION PULMONARY/CRITICAL CARE CONSULTATION: April 24, 2019. REASON FOR CONSULTATION: Back pain. HISTORY OF PRESENT ILLNESS: This is a 64-year-old female who was recently in the hospital. It looks like she was maybe discharged on April 22. She is a very poor historian. She is very confused. She really is not able to give much of a history. According to the ER jackie, she apparently came in because of an elevated creatinine. She apparently also had been complaining of some back pain and some sort of back injury. She was becoming more and more fatigued and somnolent at home. Very confused and apparently fell a couple of times. For that reason, she was brought into the emergency room by EMS. She apparently also developed a contusion of her left leg. Anyway, again, no history could really be obtained from her. She was lying flat in bed. She was only interested in being covered up by the blanket. The patient did have a bandage on her left lower leg. She was wearing nasal O2 and had a basic IV running. Again, no additional history could be obtained from her. MEDICATIONS: Reviewed. She is on Zocor, Cymbalta, Synthroid, Xarelto, DuoNeb, MiraLAX, Flomax, aspirin, Symbicort, Lanoxin, prednisone, Singulair, morphine sulfate, Lyrica, Cardizem, nitroglycerin, Percocet, lisinopril, metoprolol, nystatin, and Lasix. ALLERGIES: REVIEWED. SHE IS APPARENTLY ALLERGIC TO AUGMENTIN, CECLOR, IVP DYE, POTASSIUM, PENICILLIN, AND CLAVULANATE. PAST MEDICAL HISTORY: Reviewed. She has a history of atrial fibrillation, COPD, CVA/TIA, hyperlipidemia, hypertension, memory impairment, PE, hypothyroidism, spinal stenosis, degenerative disc disease, severe mitral and moderate tricuspid regurgitation, and memory impairment. SURGICAL HISTORY: Includes back surgery, D and C, bilateral cataract surgery. SOCIAL HISTORY: Positive for previous tobacco use. She apparently does not smoke now. She apparently denied or there is no history of any alcohol use or illicit drug use. FAMILY HISTORY: Positive for sister with breast cancer. Mother with some sort of blood disorder and father who was "sickly". REVIEW OF SYSTEMS: Could not be obtained from this patient. This patient is very lethargic and somnolent. She could not really tell us why she was here in the emergency room. She states that she was not having any breathing issues. Please refer to the history that I gave in the section referred to as the pertinent medical history. PHYSICAL EXAMINATION: VITAL SIGNS: Current vital signs are reviewed. Temperature is 98.1, heart rate 74, respiratory rate 18, blood pressure 142/71 mean 94, 2 L saturation 95 or 96%. GENERAL: Appears in no acute distress. She is lethargic and somnolent. She does arouse. Appears not to be in any distress. Nasal O2 in place. HEENT examination is grossly unremarkable. NECK: Supple. Full range of motion. CARDIOVASCULAR: Examination reveals regular rhythm and rate. Heart rate 74 beats per minute. S1, S2 normal. Heart sounds are distant. LUNGS: Reveal relatively clear. She does not take deep breaths. A few scattered rhonchi. No wheezes or crackles. ABDOMEN: Soft. Bowel sounds are heard. EXTREMITIES are intact. No edema. There is a bandage on her lower left leg. Skin shows multiple areas of ecchymoses. There is also some areas of skin tear. NEUROLOGIC: Examination could not be adequately assessed at this time. LABORATORY DATA: Includes a white count 10.7, hemoglobin 10.6, hematocrit 34.8, platelet count is 310,000. PT 11.9, INR 1.2. D-dimer 1.74. Venous blood gas shows a bicarbonate of 30, CO2 of 51 and a pH of 7.38. Sodium 133, potassium 4.6, chloride 94, CO2 31, anion gap is 8. BUN and creatinine were 13 and 0.56. Lactic acid 1.4. Ammonia less than 9. Troponin was 0.051 and 0.040 and 0.024. Urine was negative. Digoxin was 0.9. A brain CT showed it to be normal. CTA of the chest revealed pulmonary interstitial fibrotic changes and scarring and atelectasis in the mid and lower lung russell, but no evidence of pulmonary embolism. Neurology consultation done by Dr. Siddiqui suggests mental status changes, likely related to toxic/metabolic encephalopathy. Medications are reviewed. She is on a whole host of medications including aspirin, Lipitor, Symbicort, digoxin, diltiazem, Cymbalta, Lasix, updrafts, levothyroxine, lisinopril, metoprolol, Singulair, morphine, nitroglycerin, nystatin, Percocet, MiraLAX, prednisone 10 mg a day, Lyrica, Xarelto, and Bactrim. She is also on Flomax. ASSESSMENT: 1. Mental status changes, of unclear etiology. According to Neurology, these could be toxic/metabolic in etiology. 2. Chronic obstructive pulmonary disease, not active at this time. 3. No obvious signs of infection. 4. No evidence of pulmonary embolism on CT angiogram. 5. Negative brain CT. 6. History of atrial fibrillation. 7. History of cerebrovascular accident. 8. History of hyperlipidemia. 9. History of benign essential hypertension. 10.Memory impairment. 11.Pulmonary embolism by history. 12.Hypothyroidism. 13.Valvular heart disease in the form of severe mitral and moderate tricuspid regurgitation, degenerative disc disease. 14.Degenerative disc disease. PLAN: Please see my orders. Some of her mental status issues could relate to his narcotics. I am going to stop her narcotics and other medications which might affect her mental status. Her COPD is not active at this time. We will make sure she is just on Symbicort and updrafts. No steroids are needed. I do not believe she needs any antibiotics at this time. Additional recommendations and suggestions are forthcoming. Appreciate input by Neurology. MMBHARATHL / IJN: [id number] /
[2019-04-24 22:26] LABS: ABG Base Excess 5.8 mmol/L; ABG HCO3 29 mmol/L (21-25); ABG Oxygen Saturation 92.5 % (94-97); ABG PCO2 40 mmHg (35-45); ABG PH 7.47 (7.35-7.45); ABG PO2 61 mmHg (83-108); ABG TCO2 31 mmol/L (19-24); Allen Test Performed? Yes
[2019-04-25 01:11] LABS: Cholesterol 144 mg/dL (<200); HDL Cholesterol 41 mg/dL (40-60); LDL Cholesterol,Calculated 84 mg/dL (0-99); Triglycerides 95 mg/dL (<150)
[2019-04-25] MEDS: IPRATROPIUM-ALBUTEROL 3 ML NEB INHALATION SCH ×4 (07:44→20:56)
[2019-04-25] MEDS: SYMBICORT 160-4.5 MCG INHALER INHALATION SCH ×2 (07:44→21:07)
[2019-04-25] MEDS: TAMSULOSIN 0.4 MG CAP.ER.24H PO SCH (08:24)
[2019-04-25] MEDS: predniSONE 10 MG TAB PO SCH (08:24)
[2019-04-25] MEDS: DIGOXIN 125 MCG TAB PO SCH (08:24)
[2019-04-25] MEDS: DILTIAZEM CD 180 MG CAP.ER.24H PO SCH (08:24)
[2019-04-25] MEDS: DULoxetine HCL 30 MG CAPSULE.DR PO SCH (08:24)
[2019-04-25] MEDS: LISINOPRIL 20 MG TAB PO SCH (08:25)
[2019-04-25] MEDS: METOPROLOL TARTRATE 25 MG TAB PO SCH ×2 (08:25→16:02)
[2019-04-25] MEDS ORDERED: FUROSEMIDE 20 MG TAB PO SCH (09:00)
[2019-04-25] MEDS ORDERED: ASPIRIN 325 MG TAB PO SCH (09:00)
--- NOTE | 2019-04-25 09:04 | P.CRDCN ---
History of Present Illness Consult date: 04/25/19 Requesting physician: Jose C Nuñez Reason for Consult (text): Abnormal troponin Chief complaint: Mental status changes History of present illness: This is a 64-year-old female who has had multiple readmissions to the hospital lately, she has a significant past medical history for paroxysmal atrial fibrillation on long-term anticoagulation, prior CVA, COPD, hypertension, hyperlipidemia, chronic diastolic heart failure, valvular heart disease. She follows with Dr. Silva in the office. Patient was brought to the hospital on this occasion because of significant mental status changes noted by her . Patient had been taking Percocet at home along with MS Contin, Cymbalta, Lyrica, it was felt that these may have contributed to her increased confusion, or MS Contin and Percocet have been placed on hold now. Most of the history was obtained from the medical record as the patient is quite unsure as to why she is here she is complaining of some discomfort in her tailbone area. She is having episodes of vomiting and diarrhea. Cardiology consultation was requested be cause of abnormality in troponin. CT of the spine was performed which did not reveal any acute abnormality. CTA of the chest revealed pulmonary interstitial fibrotic changes and scarring in the mid and lower lung russell. CT of the brain was negative. Carotid Doppler study did not reveal evidence of hemodynamically significant stenosis. Blood pressure 142/70 with a heart rate in the 60s, 95% o n 2 L of oxygen. White blood cell count 10.7, hemoglobin 10.6, platelet count 310. D-dimer is 1.7. Sodium 133, potassium 4.6, BUN 13, creatinine 0.5. Blood gases were obtained, the pH came back to be 7.47, pCO2 40, pO2 61, HCO3 29. Troponin 0.051, 0.040, 0.024. Patient does not recall having any chest discomfort. Past Medical History Past Medical History: Atrial Fibrillation, COPD, CVA/TIA, Hyperlipidemia, Hypertension, Memory Impairment, Pulmonary Embolus (PE), Thyroid Disorder Additional Past Medical History / Comment(s): CVA WITH LEFT SIDED EYE DROOP, NUMBNESS ALAN FINGERS, LEFT LEG SWELLING, DDD, SPINAL STENOSIS, severe mitral and moderate tricuspid valve regurgitation; memory impairment (short term per ) History of Any Multi-Drug Resistant Organisms: None Reported Past Surgical History: Back Surgery Additional Past Surgical History / Comment(s): d&c's, ALAN CATARACT SX Past Anesthesia/Blood Transfusion Reactions: No Reported Reaction Additional Past Anesthesia/Blood Transfusion Reaction / Comment(s): "anesthesia took more than usual, I didn't go under" Past Psychological History: Anxiety Additional Psychological History / Comment(s): Pt resides with her spouse. They are raising their 15 yr old granddaughter. 2 sons also live with them, one of which has had a brain injury and needs care. Pt uses a walker to ambulate. She no longer drives. She has home oxygen at 3.5L/[place] ATC Smoking Status: Former smoker Past Alcohol Use History: None Reported Additional Past Alcohol Use History / Comment(s): Pt started smoking in 1972 and quit in December,. Past Drug Use History: None Reported - Past Family History Sister(s) Family Medical History: Cancer Additional Family Medical History / Comment(s): breast Mother Family Medical History: Blood Disorder Additional Family Medical History / Comment(s): Mother from a type of blood disorder but pt cannot recall type. Father Additional Family Medical History / Comment(s): Father was "sickly" Medications and Allergies Home Medications Medication Instructions Recorded Confirmed Type Simvastatin [Zocor] 20 mg PO HS 06/06/14 04/24/19 History DULoxetine HCL [Cymbalta] 60 mg PO DAILY 07/22/17 04/24/19 History Levothyroxine Sodium [Synthroid] 50 mcg PO DAILY 07/22/17 04/24/19 History Rivaroxaban [Xarelto] 20 mg PO HS 07/22/17 04/24/19 History Ipratropium-Albuterol Nebulize 3 ml INHALATION RT-QID 06/01/18 04/24/19 History [Duoneb 0.5 mg-3 mg/3 ml Soln] Polyethylene Glycol 3350 [Miralax] 17 gm PO DAILY PRN 12/30/18 04/24/19 History Tamsulosin [Flomax] 0.4 mg PO DAILY 12/30/18 04/24/19 History Nitroglycerin Sl Tabs [Nitrostat] 0.4 mg SUBLINGUAL Q5M PRN tab 01/15/19 04/24/19 Rx Aspirin 81 mg PO DAILY@1700 01/16/19 04/24/19 History Budesonide-Formot 160-4.5 Mcg 2 puff INHALATION RT-BID 01/16/19 04/24/19 History [Symbicort 160-4.5 Mcg Inhaler] Digoxin [Lanoxin] 125 mcg PO DAILY 01/16/19 04/24/19 History predniSONE 10 mg PO DAILY 01/16/19 04/24/19 History oxyCODONE-APAP 10-325MG [Percocet 1 tab PO BID PRN #6 tab 01/18/19 04/24/19 Rx 10-325 mg] Montelukast [Singulair] 10 mg PO HS 04/04/19 04/24/19 History Morphine Sulfate ER [Ms Contin] 60 mg PO Q8H 04/04/19 04/24/19 History Pregabalin [Lyrica] 150 mg PO BID 04/04/19 04/24/19 History Lisinopril [Zestril] 20 mg PO DAILY #30 tab 04/07/19 04/24/19 Rx Metoprolol Tartrate [Lopressor] 25 mg PO BID@0800,1700 #60 tab 04/07/19 04/24/19 Rx Nystatin 100,000Unit/gm Cream 1 applic TOPICAL BID #1 applic 04/07/19 04/24/19 Rx [Mycostatin Cream] Diltiazem Cd [Cardizem CD] 180 mg PO DAILY 04/17/19 04/24/19 History Furosemide [Lasix] 40 mg PO MOWEFR #0 04/19/19 04/24/19 Rx Allergies Allergy/AdvReac Type Severity Reaction Status Date / Time amoxicillin trihydrate Allergy Rash/Hives Verified 04/24/19 08:59 [From Augmentin] cefaclor [From Ceclor] Allergy Rash/Hives Verified 04/24/19 08:59 Iodinated Contrast Media Allergy Throat Verified 04/24/19 08:59 [Iodinated Contrast Media - Swelling IV Dye] Penicillins Allergy Rash/Hives Verified 04/24/19 08:59 potassium clavulanate Allergy Rash/Hives Verified 04/24/19 08:59 [From Augmentin] Physical Exam Vitals: Vital Signs Temp Pulse Pulse Resp BP BP Pulse Ox 04/25/19 04:00 98.0 F 104 H 18 170/73 98 04/25/19 00:00 98.3 F 87 18 114/53 94 L 04/24/19 21:55 78 04/24/19 21:44 76 04/24/19 20:21 98.1 F 90 18 128/87 94 L 04/24/19 20:00 90 18 04/24/19 18:39 78 04/24/19 18:28 80 04/24/19 16:00 98.1 F 76 16 148/74 96 04/24/19 12:43 74 04/24/19 12:34 72 04/24/19 11:45 98.1 F 62 18 142/71 95 04/24/19 11:10 84 20 155/67 98 Intake and Output 04/24/19 04/25/19 04/25/19 22:59 06:59 14:59 Intake Total 100 Output Total 300 Balance -300 100 Intake: Intake, IV Titration 100 Amount Sodium Chloride 0.9% 1, 100 000 ml @ 100 mls/hr IV . Q10H [facility] Rx#:[id number] Output: Urine 300 Other: Voiding Method Bedside Commode Bedside Commode # Voids 1 1 Weight 76.204 kg 77.6 kg PHYSICAL EXAMINATION CONSTITUTIONAL: No apparent distress. HEENT: Head is normocephalic. Pupils are equal, round. Sclerae anicteric. Mucous membranes of the mouth are moist. No JVD. No carotid bruit. CHEST EXAMINATION: Lungs are clear to auscultation. No chest wall tenderness is noted on palpation or with deep breathing. Diminished bilaterally. HEART EXAMINATION: Irregular rate and rhythm. S1, S2 heard. Systolic ejection murmur at the left sternal border, no gallops or rub. EXTREMITIES: 2+ peripheral pulses, no lower extremity edema and no calf tenderness. Results 04/23/19 23:57 04/23/19 23:57 Cardiac Enzymes 04/24/19 Range/Units 10:51 Troponin I 0.024 (0.000-0.034) ng/mL Lipids 04/24/19 Range/Units 04:27 Triglycerides 95 (<150) mg/dL Cholesterol 144 (<200) mg/dL HDL Cholesterol 41 (40-60) mg/dL Current Medications Generic Name Dose Route Start Last Admin Trade Name Freq PRN Reason Stop Dose Admin Albuterol/Ipratropium 3 ml 04/24/19 08:00 02/12/20 07:44 Duoneb 0.5 Mg-3 Mg/3 Ml Soln INHALATION Not Given RT-QID [facility] Aspirin 81 mg 04/24/19 17:00 04/24/19 20:34 Aspirin PO Not Given DAILY@1700 [facility] Atorvastatin Calcium 10 mg 04/24/19 21:00 04/24/19 20:35 Lipitor PO 10 mg HS [facility] Administration Budesonide/Formoterol Fumarate 2 puff 04/24/19 08:00 04/25/19 07:44 Symbicort 160-4.5 Mcg Inhaler INHALATION Not Given RT-BID [facility] Digoxin 125 mcg 04/24/19 09:00 04/25/19 08:24 Lanoxin PO 125 mcg DAILY [facility] Administration Diltiazem HCl 180 mg 04/24/19 09:00 04/25/19 08:24 Cardizem Cd PO 180 mg DAILY [facility] Administration Duloxetine HCl 60 mg 04/24/19 09:00 04/25/19 08:24 Cymbalta PO 60 mg DAILY [facility] Administration Furosemide 40 mg 04/25/19 09:00 04/25/19 08:24 Lasix PO 40 mg MoWeFr@0900 [facility] Administration Sodium Chloride 1,000 mls @ 100 mls/hr 04/24/19 04:15 04/24/19 23:22 Saline 0.9% IV 100 mls/hr .Q10H [facility] Administration Levothyroxine Sodium 50 mcg 04/24/19 06:30 04/24/19 06:45 Synthroid PO 50 mcg DAILY@0630 [facility] Administration Lisinopril 20 mg 04/24/19 09:00 04/25/19 08:25 Zestril PO 20 mg DAILY [facility] Administration Metoprolol Tartrate 25 mg 04/24/19 08:00 04/25/19 08:25 Lopressor PO 25 mg BID@0800,1700 [facility] Administration Montelukast Sodium 10 mg 04/24/19 21:00 04/24/19 20:35 Singulair PO 10 mg HS [facility] Administration Nitroglycerin 0.4 mg 04/24/19 04:10 Nitrostat SUBLINGUAL Q5M PRN Chest Pain Nystatin 1 applic 04/24/19 09:00 04/24/19 20:38 Mycostatin Cream TOPICAL Not Given BID [facility] Polyethylene Glycol 17 gm 04/24/19 04:14 Miralax PO DAILY PRN Constipation Prednisone 10 mg 04/24/19 09:00 04/25/19 08:24 PO 10 mg DAILY [facility] Administration Rivaroxaban 20 mg 04/24/19 21:00 04/24/19 20:35 Xarelto PO 20 mg HS [facility] Administration Tamsulosin HCl 0.4 mg 04/24/19 09:00 04/25/19 08:24 Flomax PO 0.4 mg DAILY [facility] Administration Intake and Output 04/24/19 04/25/19 04/25/19 22:59 06:59 14:59 Intake Total 100 Output Total 300 Balance -300 100 Intake: Intake, IV Titration 100 Amount Sodium Chloride 0.9% 1, 100 000 ml @ 100 mls/hr IV . Q10H [facility] Rx#:[id number] Output: Urine 300 Other: Voiding Method Bedside Commode Bedside Commode # Voids 1 1 Weight 76.204 kg 77.6 kg 04/23/19 23:57 04/23/19 23:57 EKG Interpretations (text) EKG shows atrial fibrillation with moderately rapid ventricular response Assessment and Plan Plan: Assessment and plan #1 mental status changes #2 abnormality in troponin, no significant rise and fall pattern, not suggestive of acute coronary syndrome #3 vomiting and diarrhea #4 History of diastolic heart failure, clinically euvolemic. #5 Paroxysmal atrial fibrillation on terminologist anti-coagulation #6COPD #7Hypertension #8Dyslipidemia #9Valvular heart disease Plan Patients most recent echocardiogram with Doppler study was performed in May 2018 which revealed an ejection fraction of 55-60%, moderate pulmonary hypertension and severe mitral regurgitation. We will repeat an echocardiogram with Doppler study. We will continue with a baby aspirin, Xarelto, lisinopril, metoprolol, Cardizem and Lanoxin. Further recommendations to follow. DNP note has been reviewed, I agree with a documented findings and plan of care. Patient was seen and examined.
[2019-04-25] MEDS: LOPERAMIDE 2 MG CAP PO SCH ×4 (10:22→22:59)
[2019-04-25] MEDS: ONDANSETRON 4 MG/2 ML VIAL IVP PRN ×2 (10:22→16:03)
[2019-04-25] MEDS: MORPHINE SULFATE ER 30 MG TABLET PO SCH ×3 (10:22→22:59)
[2019-04-25] MEDS: NYSTATIN 100,000UNIT/GM CREAM 30 GM TUBE TOPICAL SCH ×2 (10:23→22:59)
[2019-04-25] MEDS: SODIUM CHLORIDE 0.9% 1,000 ML IV SCH ×2 (11:32→23:00)
--- NOTE | 2019-04-25 14:29 | P.PN ---
Subjective Progress Note Date: 04/25/19 Principal diagnosis: Acute mental status changes of unclear etiology On 04/25/2019 patient seen in follow-up on selective care unit, she is more awake and alert on today's exam, she is oriented 3. Denies any acute distress, denies any shortness of breath, last night nursing staff had called Dr. Maloney with concerns of worsening alteration of mentation, and blood gas was obtained showing pO2 of 61, pCO2 40, and pH of 7.47 this was done on FiO2 of 28%. No hypercapnia, no ventilatory abnormality. Patient's COPD is stable, she denies any cough or congestion, she remains on 3 L of oxygen dependent 95%, hemodynamically she is stable, she's been afebrile. She had a carotid Doppler ultrasound which showed no evidence of hemodynamically significant stenosis. Brain CT was negative. Neurology swallowing. Objective - Vital Signs Vital signs: Vital Signs Temp 97.7 F 04/25/19 08:00 Pulse 89 04/25/19 11:35 Resp 16 04/25/19 11:35 BP 169/74 04/25/19 11:35 Pulse Ox 99 04/25/19 11:35 Intake & Output 04/24/19 04/25/19 04/25/19 18:59 06:59 18:59 Intake Total 100 Output Total 300 Balance -200 Weight 77.6 kg Intake: Intake, IV Titration 100 Amount Sodium Chloride 0.9% 1, 100 000 ml @ 100 mls/hr IV . Q10H [facility] Rx#:[id number] Output: Urine 300 Other: Voiding Method Bedside Commode Bedside Commode Bedside Commode Diaper # Voids 1 3 # Bowel Movements 4 - Exam GENERAL EXAM: Alert, very pleasant, 64-year-old white female, oxygen 98% on 3 L of oxygen comfortable in no apparent distress. HEAD: Normocephalic/atraumatic. EYES: Normal reaction of pupils, equal size. Conjunctiva pink, sclera white. NOSE: Clear with pink turbinates. THROAT: No erythema or exudates. NECK: No masses, no JVD, no thyroid enlargement, no adenopathy. CHEST: No chest wall deformity. Symmetrical expansion. LUNGS: Equal air entry with no crackles, wheeze, rhonchi or dullness. CVS: Regular rate and rhythm, normal S1 and S2, no gallops, no murmurs, no rubs ABDOMEN: Soft, nontender. No hepatosplenomegaly, normal bowel sounds, no guarding or rigidity. EXTREMITIES: No clubbing, no edema, no cyanosis, 2+ pulses and upper and lower extremities. MUSCULOSKELETAL: Muscle strength and tone normal. SPINE: No scoliosis or deformity SKIN: No rashes CENTRAL NERVOUS SYSTEM: Alert and oriented -3. No focal deficits, tone is normal in all 4 extremities. PSYCHIATRIC: Alert and oriented -3. Appropriate affect. Intact judgment and insight. - Labs CBC & Chem 7: 04/23/19 23:57 04/23/19 23:57 Labs: Abnormal Lab Results - Last 24 Hours (Table) 04/24/19 Range/Units 22:20 ABG pH 7.47 H (7.35-7.45) ABG pO2 61 L (83-108) mmHg ABG HCO3 29 H (21-25) mmol/L ABG Total CO2 31 H (19-24) mmol/L ABG O2 Saturation 92.5 L (94-97) % Assessment and Plan Plan: Assessment: #1. Acute mental status changes of unclear etiology, could be toxic/metabolic in etiology. Brain CT was negative, carotid ultrasound was unremarkable #2. Chronic COPD not active at this time #3. No obvious signs of infection #4. No evidence of pulmonary embolism on CT angiogram #5. History of atrial fibrillation #6. History of CVA #7. Hyperlipidemia #8. Hypertension #9. History of pulmonary embolism #10. Hypothyroidism #11. Valvular heart disease in the form of severe mitral and moderate tricuspid regurgitation degenerative disc disease #12. Degenerative disc disease Plan: COPD stable, last night blood gas was obtained and patient's alteration of mentation was not due to any ventilatory abnormality. No cough or congestion, sinus stable, continue maintenance inhalers and breathing treatments. Neurology is following, so far the workup was negative. I performed a history & physical examination of the patient and discussed their management with my nurse practitioner, Renee Doir. I reviewed the nurse practitioner's note and agree with the documented findings and plan of care. Lung sounds are positive for diminished breath sounds. The findings and the impression was discussed with the patient. I attest to the documentation by the nurse practitioner. Time with Patient: Less than 30
[2019-04-25] MEDS: ASPIRIN 81 MG PO SCH (16:03)
--- NOTE | 2019-04-25 16:34 | P.PN ---
Subjective Progress Note Date: 04/25/19 Patient is much more alert and awake. Patient's son was also present today. She informed me that patient was recently admitted to the hospital about 3 days prior to current admission because of altered mental status. Patient was evaluated and sent home, but then again developed altered mental status, gets dehydrated, renal insufficiency, sleeps all the time, mumbles, talks with not making sense. She was brought back to the hospital on Tuesday, 2 days ago. Patient apparently takes morphine 60 mg twice a day and OxyContin 10 mg every day. Patient also has renal insufficiency, therefore opiates probably builds up in her system, making her very lethargic. Objective - Vital Signs Vital signs: Vital Signs Temp 97.7 F 04/25/19 08:00 Pulse 69 04/25/19 15:22 Resp 16 04/25/19 11:35 BP 169/74 04/25/19 11:35 Pulse Ox 99 04/25/19 11:35 Intake & Output 04/24/19 04/25/19 04/25/19 18:59 06:59 18:59 Intake Total 100 Output Total 300 Balance -200 Weight 77.6 kg Intake: Intake, IV Titration 100 Amount Sodium Chloride 0.9% 1, 100 000 ml @ 100 mls/hr IV . Q10H [facility] Rx#:[id number] Output: Urine 300 Other: Voiding Method Bedside Commode Bedside Commode Bedside Commode Diaper # Voids 1 3 # Bowel Movements 4 - Exam Patient is much more alert and awake. Patient knows that she is in [facility] in [facility]. She did not tell me name of the current president, although states the zay with "cheeto head". Patient has hoarse voice. No aphasia or dysarthria. Sometimes she mumbles. Muscle strength appears equal. - Labs CBC & Chem 7: 04/23/19 23:57 04/23/19 23:57 Labs: Abnormal Lab Results - Last 24 Hours (Table) 04/24/19 Range/Units 22:20 ABG pH 7.47 H (7.35-7.45) ABG pO2 61 L (83-108) mmHg ABG HCO3 29 H (21-25) mmol/L ABG Total CO2 31 H (19-24) mmol/L ABG O2 Saturation 92.5 L (94-97) % Assessment and Plan Assessment: * Altered mental status, likely related to toxic metabolic encephalopathy. Possible due to COPD exacerbation. Patient also takes morphine and OxyContin every day, which may be contributing to her encephalopathy. * Atrial fibrillation with rapid ventricular rate, currently on anticoagulation with Xarelto. * Anemia * Dyslipidemia * X tobacco use. Plan: * Your medical management for treatment of underlying cardiopulmonary disease/COPD exacerbation. * Patient takes MS Contin 60 mg every 8 hours, Percocet twice a day, Cymbalta 60 mg and Lyrica 150 mg twice a day. Her encephalopathy is likely related to medication side effect. Suggest decrease amount of opiates. Need to reevaluate all of her medications. * Carotid Doppler showed bilateral intimal thickening, minimal plaque bilateral bulb, with no elevated velocities or significant stenosis. Antegrade flow in both vertebral arteries. * Patient has atrial fibrillation, currently on Xarelto. Continue Xarelto for stroke prevention. * Neurologically clear for discharge. Neurology will sign off.
[2019-04-25] MEDS: MONTELUKAST 10 MG TAB PO SCH (22:59)
[2019-04-25] MEDS: ATORVASTATIN 10 MG TAB PO SCH (22:59)
[2019-04-25] MEDS: RIVAROXABAN 20 MG TAB PO SCH (22:59)
--- NOTE | 2019-04-25 23:11 | P.PN ---
Progress Note - Text Progress Note Date: 04/25/19 Chief Complaint: Tired History of present complaint: This is a pleasant 64-year-old patient of Dr. Trevor Hamilton. 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 Chronic stable medical conditions include hypertension, hyperlipidemia, mild cognitive impairment, hypothyroid, spinal stenosis, osteoarthritis, severe mitral and moderate tricuspid valve regurgitation, home oxygen 3.5 L. Paroxysmal atrial fibrillation . Takes medication for chronic pain. Patient was admitted on April 17 and discharged on April 19. Was admitted with acute kidney injury prerenal from decreased oral intake, acute metabolic encephalopathy from multiple pain medications. When she was discharged and did discuss at length with the patient about the pain medications. I had stopped her Klonopin. Patient still taking the morphine long-acting and Percocet. Patient is brought into the ER by the and son has become rather lethargic. No focal symptoms. Tired rundown. No fever or chills reported. Patient just about arousable the doses off. Consultations made to nephrology and cardiology because of a troponin leak. Apparently the patient took a fall at home. With some low back pain. Admitted with metabolic encephalopathy felt to be from narcotics. Patient is long-acting morphine sulfate Percocet were held Today-earlier today patient started having some narcotic withdrawal syndrome. Started patient on decreased dose of long-acting narcotic. Appetite is not good. Patient's at the bedside. Review of systems: Was done for constitutional, cardiovascular, GI, pulmonary. relevant finding as above Active Medications Albuterol/Ipratropium (Duoneb 0.5 Mg-3 Mg/3 Ml Soln) 3 ml INHALATION RT-QID [facility] Last Admin: 04/25/19 20:56 Dose: 3 ml Documented by: Aspirin (Aspirin) 81 mg PO DAILY@1700 [facility] Last Admin: 04/25/19 16:03 Dose: 81 mg Documented by: Atorvastatin Calcium (Lipitor) 10 mg PO HS [facility] Last Admin: 04/25/19 22:59 Dose: 10 mg Documented by: Budesonide/Formoterol Fumarate (Symbicort 160-4.5 Mcg Inhaler) 2 puff INHALATION RT-BID [facility] Last Admin: 04/25/19 21:07 Dose: 2 puff Documented by: Digoxin (Lanoxin) 125 mcg PO DAILY [facility] Last Admin: 02/12/20 08:24 Dose: 125 mcg Documented by: Diltiazem HCl (Cardizem Cd) 180 mg PO DAILY [facility] Last Admin: 04/25/19 08:24 Dose: 180 mg Documented by: Duloxetine HCl (Cymbalta) 60 mg PO DAILY [facility] Last Admin: 04/25/19 08:24 Dose: 60 mg Documented by: Furosemide (Lasix) 40 mg PO MoWeFr@0900 [facility] Last Admin: 04/25/19 08:24 Dose: 40 mg Documented by: Sodium Chloride (Saline 0.9%) 1,000 mls @ 100 mls/hr IV .Q10H [facility] Last Admin: 04/25/19 23:00 Dose: 100 mls/hr Documented by: Levothyroxine Sodium (Synthroid) 50 mcg PO DAILY@0630 [facility] Last Admin: 04/24/19 06:45 Dose: 50 mcg Documented by: Lisinopril (Zestril) 20 mg PO DAILY [facility] Last Admin: 04/25/19 08:25 Dose: 20 mg Documented by: Loperamide HCl (Imodium) 2 mg PO QID [facility] Last Admin: 04/25/19 22:59 Dose: 2 mg Documented by: Metoprolol Tartrate (Lopressor) 25 mg PO BID@0800,1700 [facility] Last Admin: 04/25/19 16:02 Dose: 25 mg Documented by: Montelukast Sodium (Singulair) 10 mg PO HS [facility] Last Admin: 04/25/19 22:59 Dose: 10 mg Documented by: Morphine Sulfate (Ms Contin) 30 mg PO Q8HR [facility] Last Admin: 04/25/19 22:59 Dose: 30 mg Documented by: Nitroglycerin (Nitrostat) 0.4 mg SUBLINGUAL Q5M PRN PRN Reason: Chest Pain Nystatin (Mycostatin Cream) 1 applic TOPICAL BID [facility] Last Admin: 04/25/19 22:59 Dose: 1 applic Documented by: Ondansetron HCl (Zofran) 4 mg IVP Q6HR PRN PRN Reason: Nausea And Vomiting Last Admin: 04/25/19 16:03 Dose: 4 mg Documented by: Polyethylene Glycol (Miralax) 17 gm PO DAILY PRN PRN Reason: Constipation Prednisone () 10 mg PO DAILY [facility] Last Admin: 04/25/19 08:24 Dose: 10 mg Documented by: Rivaroxaban (Xarelto) 20 mg PO HS [facility] Last Admin: 04/25/19 22:59 Dose: 20 mg Documented by: Tamsulosin HCl (Flomax) 0.4 mg PO DAILY [facility] Last Admin: 04/25/19 08:24 Dose: 0.4 mg Documented by: Physical examination: VITAL SIGNS: 97.7, 89, 16, 169/74, 99% on 3 L GENERAL: BMI 30.7, laying in bed, awake but tired EYES: Pupils equal. Conjunctiva pale HEENT: External appearance of nose and ears normal, oral cavity normal NECK: JVD not raised; masses not palpable. HEART: Heart sounds regular, minimal edema. LUNGS: Respiratory rate increased, diminished breath sounds ABDOMEN: Soft, nontender, liver spleen not palpable, no masses palpable. PSYCH: Awake but tired, answering simple questions NEUROLOGICAL: Cranial nerves grossly intact; no facial asymmetry, power and sensation grossly intact. DERMATOLOGICAL: Diffuse bruising INVESTIGATIONS, reviewed in the clinical context: White count 10.7 hemoglobin 10.6 platelets 310 potassium 4.6 creatinine 0.56 2-D echocardiogram from December 2018 shows EF of 60-65%, moderate pulmonary hypertension, moderate to severe mitral regurgitation, moderate concentric left medical hypertrophy EKG tracing-personally reviewed by me shows atrial flutter fibrillation with a r ate around 107 Computed tomography scan brain-acute Chest CTA-fibrotic changes, no PE Computed tomography scan-lumbar spine-evidence of OA, spinal stenosis, no fracture reported Assessment: -Acute metabolic encephalopathy patient morphine scheduled and Percocet. Patient's Klonopin was discontinued of the last admission. Unsure if patient is taking that at home again. There are no focal symptoms. UA unremarkable. No respiratory symptoms. Clinically stroke, seizure unlikely. -Narcotic withdrawal syndrome this morning. She'll be started back on long- acting morphine at the reduced dose. -Chronic hypoxic respiratory failure from COPD, on 3.5 L oxygen at home -Paroxysmal atrial fibrillation/flutter, currently rate controlled -COPD in an ex-smoker -Chronic pulmonary fibrosis -Hyperlipidemia -Essential hypertension -Mild cognitive impairment -Hypothyroid -Chronic anxiety depression otherwise specified -Chronic gait dysfunction uses a cane and a walker -Chronic osteoarthritis multiple joints including lumbar spine Plan: Patient morphine long-acting MS Contin will be cut back to 45 mg 3 times a day. We'll also hold off the Percocet. Care was discussed at length with the patient and at the bedside. Questions were answered. Other medications to continue.
[2019-04-25] MEDS: MORPHINE SULFATE ER 15 MG TABLET PO SCH (23:58)
[2019-04-26] MEDS: SODIUM CHLORIDE 0.9% 1,000 ML IV SCH (05:20)
[2019-04-26] MEDS: LEVOTHYROXINE 50 MCG TAB PO SCH (05:23)
[2019-04-26] MEDS: IPRATROPIUM-ALBUTEROL 3 ML NEB INHALATION SCH ×2 (07:27→11:26)
[2019-04-26] MEDS: SYMBICORT 160-4.5 MCG INHALER INHALATION SCH (07:27)
[2019-04-26] MEDS: LISINOPRIL 20 MG TAB PO SCH (08:22)
[2019-04-26] MEDS: METOPROLOL TARTRATE 25 MG TAB PO SCH (08:22)
[2019-04-26] MEDS: LOPERAMIDE 2 MG CAP PO SCH ×2 (08:22→12:35)
[2019-04-26] MEDS: TAMSULOSIN 0.4 MG CAP.ER.24H PO SCH (08:23)
[2019-04-26] MEDS: DIGOXIN 125 MCG TAB PO SCH (08:23)
[2019-04-26] MEDS: predniSONE 10 MG TAB PO SCH (08:24)
[2019-04-26] MEDS: DULoxetine HCL 30 MG CAPSULE.DR PO SCH (08:24)
[2019-04-26] MEDS: NYSTATIN 100,000UNIT/GM CREAM 30 GM TUBE TOPICAL SCH (08:26)
[2019-04-26] MEDS: MORPHINE SULFATE ER 15 MG TABLET PO SCH (08:26)
[2019-04-26] MEDS ORDERED: METOPROLOL TARTRATE 25 MG TAB PO SCH (09:00)
[2019-04-26] MEDS: DILTIAZEM CD 180 MG CAP.ER.24H PO SCH (09:24)
--- NOTE | 2019-04-26 10:27 | P.PN ---
Subjective This is a pleasant 64-year-old female past medical history significant for persistent atrial fibrillation, history of CVA, COPD, hypertension, dyslipidemia, chronic diastolic heart failure and valvular heart disease. She follows in the office with Dr. Sivla. She is seen and examined resting comfortably laying flat in bed in no acute distress. She denies symptoms of chest pain, shortness of breath, dizziness or palpitations. She recently underwent an echocardiogram in December 2018 revealing preserved LV systolic function with ejection fraction 60-65%, moderate to severe MR, mild TR and moderate pulmonary hypertension with an RVSP of 51 mmHg. Blood pressure 124/65 heart rate 92 afebrile maintaining oxygen saturation on nasal cannula. Currently maintained on aspirin 81 mg daily, atorvastatin 10 mg daily, digoxin 125 g daily, diltiazem 120 mg daily, Lasix 40 mg every other day, lisinopril 20 mg daily, Lopressor 25 mg twice a day and Xarelto 20 mg at bedtime. Neurology has also seen the patient and is recommending decrease the amount of opiates she takes on a regular basis. GENERAL: Well-appearing, well-nourished and in no acute distress. NECK: Supple without JVD or thyromegaly. LUNGS: Breath sounds clear to auscultation bilaterally. Respiration equal and unlabored. No wheezes, rales or rhonchi. HEART: Irregular rate and rhythm with systolic ejection murmur at the left sternal border, no rubs or gallops. S1 and S2 heard. EXTREMITIES: Normal range of motion, no edema. No clubbing or cyanosis. Peripheral pulses intact. ASSESSMENT Altered mental status Elevated troponin, no significant rise and fall pattern. Not suggestive of an acute coronary event. Paroxysmal atrial fibrillation on long-term anticoagulation Valvular heart disease COPD Dyslipidemia Hypertension Chronic diastolic heart failure, currently euvolemic Obesity, BMI 31 PLAN Increase Lopressor to 25 mg 3 times a day for better control of her heart rate. Stable for discharge from a cardiac perspective. Follow with Dr. Silva upon discharge. We will continue to follow as needed. Nurse Practitioner note has been reviewed, I agree with a documented findings and plan of care. Patient was seen and examined. Objective - Vital Signs Vital signs: Vital Signs Temp 98.1 F 04/26/19 06:21 Pulse 92 04/26/19 07:43 Resp 16 04/26/19 06:21 BP 124/65 04/26/19 06:21 Pulse Ox 98 04/26/19 06:21 Intake & Output 04/25/19 04/26/19 04/26/19 18:59 06:59 18:59 Intake Total 700 100 Balance 700 100 Intake: Intake, IV Titration 700 Amount Sodium Chloride 0.9% 1, 700 000 ml @ 100 mls/hr IV . Q10H [facility] Rx#:[id number] Oral 100 Other: Voiding Method Bedside Commode Bedside Commode Bedside Commode # Voids 1 3 # Bowel Movements 4 - Labs CBC & Chem 7: 04/23/19 23:57 04/23/19 23:57
[2019-04-26 11:53] VITALS: BP 161/73; PULSE 86; RESP 17; TEMP 98.2
--- NOTE | 2019-04-26 14:20 | P.PN ---
Subjective Progress Note Date: 04/26/19 Principal diagnosis: Acute mental status changes of unclear etiology On 04/25/2019 patient seen in follow-up on selective care unit, she is more awake and alert on today's exam, she is oriented 3. Denies any acute distress, denies any shortness of breath, last night nursing staff had called Dr. Maloney with concerns of worsening alteration of mentation, and blood gas was obtained showing pO2 of 61, pCO2 40, and pH of 7.47 this was done on FiO2 of 28%. No hypercapnia, no ventilatory abnormality. Patient's COPD is stable, she denies any cough or congestion, she remains on 3 L of oxygen dependent 95%, hemodynamically she is stable, she's been afebrile. She had a carotid Doppler ultrasound which showed no evidence of hemodynamically significant stenosis. Brain CT was negative. Neurology swallowing. On 04/26/2019 patient seen in follow-up on general medical floor. Much more awake and alert, oriented 3, denies any distress, denies any difficulty breathing, is a 3 L of oxygen with pulse ox of 98%, afebrile. Lung sounds are clear to auscultation. No rhonchi, no wheezing, no cough or congestion. No acute events overnight. Objective - Vital Signs Vital signs: Vital Signs Temp 98.2 F 04/26/19 10:45 Pulse 96 04/26/19 11:38 Resp 17 04/26/19 10:45 BP 161/73 04/26/19 10:45 Pulse Ox 94 L 04/26/19 10:45 Intake & Output 04/25/19 04/26/19 04/26/19 18:59 06:59 18:59 Intake Total 700 100 500 Balance 700 100 500 Intake: IV 500 Sodium Chloride 0.9% 1, 500 000 ml @ 100 mls/hr IV . Q10H [facility] Rx#:[id number] Intake, IV Titration 700 Amount Sodium Chloride 0.9% 1, 700 000 ml @ 100 mls/hr IV . Q10H [facility] Rx#:[id number] Oral 100 Other: Voiding Method Bedside Commode Bedside Commode Bedside Commode # Voids 1 3 # Bowel Movements 4 - Exam GENERAL EXAM: Alert, very pleasant, 64-year-old white female, oxygen 98% on 3 L of oxygen comfortable in no apparent distress. HEAD: Normocephalic/atraumatic. EYES: Normal reaction of pupils, equal size. Conjunctiva pink, sclera white. NOSE: Clear with pink turbinates. THROAT: No erythema or exudates. NECK: No masses, no JVD, no thyroid enlargement, no adenopathy. CHEST: No chest wall deformity. Symmetrical expansion. LUNGS: Equal air entry with no crackles, wheeze, rhonchi or dullness. CVS: Regular rate and rhythm, normal S1 and S2, no gallops, no murmurs, no rubs ABDOMEN: Soft, nontender. No hepatosplenomegaly, normal bowel sounds, no guarding or rigidity. EXTREMITIES: No clubbing, no edema, no cyanosis, 2+ pulses and upper and lower extremities. MUSCULOSKELETAL: Muscle strength and tone normal. SPINE: No scoliosis or deformity SKIN: No rashes CENTRAL NERVOUS SYSTEM: Alert and oriented -3. No focal deficits, tone is normal in all 4 extremities. PSYCHIATRIC: Alert and oriented -3. Appropriate affect. Intact judgment and insight. - Labs CBC & Chem 7: 04/23/19 23:57 04/23/19 23:57 Assessment and Plan Plan: Assessment: #1. Acute mental status changes of unclear etiology, could be toxic/metabolic in etiology. Brain CT was negative, carotid ultrasound was unremarkable #2. Chronic COPD not active at this time #3. No obvious signs of infection #4. No evidence of pulmonary embolism on CT angiogram #5. History of atrial fibrillation #6. History of CVA #7. Hyperlipidemia #8. Hypertension #9. History of pulmonary embolism #10. Hypothyroidism #11. Valvular heart disease in the form of severe mitral and moderate tricuspid regurgitation degenerative disc disease #12. Degenerative disc disease Plan: Patient is doing well, her COPD is not active at this time, vital signs are stable, her mentation continues to improve. Is much more awake and alert on today's exam. Patient is being discharged home today. From pulmonary perspective the patient is stable for discharge. I performed a history & physical examination of the patient and discussed their management with my nurse practitioner, Renee Dior. I reviewed the nurse practitioner's note and agree with the documented findings and plan of care. Lung sounds are positive for diminished breath sounds. The findings and the impression was discussed with the patient. I attest to the documentation by the nurse practitioner. Time with Patient: Less than 30
--- NOTE | 2019-04-27 08:14 | DS ---
DISCHARGE SUMMARY DATE OF SERVICE: 04/26/2019 FINAL DIAGNOSES: 1. Change in mental status, acute metabolic encephalopathy, possibly medication induced. 2. Narcotic withdrawal syndrome. 3. Chronic hypoxic respiratory failure. 4. Chronic obstructive pulmonary disease. 5. Paroxysmal atrial fibrillation. 6. Chronic pulmonary fibrosis. 7. Hyperlipidemia. 8. Hypertension. 9. Mild cognitive impairment. 10.Hypothyroidism. 11.Chronic anxiety. 12.Gait dysfunction. 13.Degenerative joint disease. DISCHARGE DISPOSITION: The patient will be discharged in stable condition with guarded prognosis. HISTORY OF PRESENT ILLNESS: This 64-year-old woman with a past medical history of multiple medical problems admitted with change in mental status. Medications adjusted. Patient improved significantly. Patient was taking multiple pain medications and also pain medication also reduced. Otherwise, the patient was seen in multiple consultations and ABGs are done. Cardiology saw the patient and cleared the patient for discharge. On exam, vitals are stable. CARDIOVASCULAR: S1, S2 muffled. ABDOMEN: Soft. NERVOUS SYSTEM: No focal deficits. DISCHARGE ADVICE: 1. Diet is cardiac. 2. Activity limited until followup. 3. Follow up with Dr. Trevor Hamilton with 1 to 2 days. 4. Follow up with Dr. Silva as recommended. Medications will be as follows: 1. Aspirin 81 mg p.o. daily. 2. Cardizem CD 180 mg p.o. daily. 3. Cymbalta 60 mg p.o. daily. 4. DuoNeb q.i.d. and p.r.n. 5. Flomax 0.4 daily. 6. Lanoxin 125 mcg p.o. daily. 7. Lyrica 150 mg p.o. b.i.d. 8. MiraLAX 17 grams p.o. daily. 9. Prednisone 10 mg p.o. daily. 10.Singulair 10 mg at bedtime. 11.Symbicort 160/4.5 two puffs b.i.d. 12.Synthroid 50 mcg p.o. daily. 13.Xarelto 20 mg at bedtime. 14.Zocor 20 mg at bedtime. 15.Lasix 40 mg Tuesday, Tuesday. 16.Lopressor 25 mg p.o. b.i.d. 17.MS Contin 60 mg p.o. b.i.d., dose adjusted. 18.Nystatin topically. 19.Nitrostat 0.4 sublingual p.r.n. 20.Oxycodone 10 mg b.i.d. p.r.n. 21.Zestril 20 mg p.o. daily. Once again the patient will be discharged in stable condition with guarded prognosis. MMODL / IJN: [id number] /
== END 2019-04-26 13:12 | disposition home or self-care (01) ==
LOC: EC 22:47 → 3SCARD 04-24 04:12 → 6NMEDSUR 04-25 20:50
PROVIDERS: ADMIT Hospitalist; ATTEND Hospitalist
DX: G93.41 Metabolic encephalopathy (principal); F11.23 Opioid dependence with withdrawal; J96.11 Chronic respiratory failure with hypoxia; J44.9 Chronic obstructive pulmonary disease, unspecified; J84.10 Pulmonary fibrosis, unspecified; I48.19 Other persistent atrial fibrillation; I48.92 Unspecified atrial flutter; I11.0 Hypertensive heart disease with heart failure; I50.32 Chronic diastolic (congestive) heart failure; E03.9 Hypothyroidism, unspecified; E78.5 Hyperlipidemia, unspecified; D64.9 Anemia, unspecified; S80.12XA Contusion of left lower leg, initial encounter; G31.84 Mild cognitive impairment of uncertain or unknown etiology; F41.8 Other specified anxiety disorders; G89.29 Other chronic pain; M15.9 Polyosteoarthritis, unspecified; M48.061 Spinal stenosis, lumbar region without neurogenic claudication; M47.816 Spondylosis without myelopathy or radiculopathy, lumbar region; E66.9 Obesity, unspecified; J98.11 Atelectasis; I08.1 Rheumatic disorders of both mitral and tricuspid valves; I27.20 Pulmonary hypertension, unspecified; R79.89 Other specified abnormal findings of blood chemistry; R26.9 Unspecified abnormalities of gait and mobility; R29.6 Repeated falls; Z87.891 Personal history of nicotine dependence; Z86.73 Personal history of transient ischemic attack (TIA), and cerebral infarction without residual deficits; Z86.711 Personal history of pulmonary embolism; Z98.890 Other specified postprocedural states; Z98.42 Cataract extraction status, left eye; Z98.41 Cataract extraction status, right eye; Z68.31 Body mass index [BMI] 31.0-31.9, adult; Z99.81 Dependence on supplemental oxygen; Z99.89 Dependence on other enabling machines and devices; Z79.890 Hormone replacement therapy; Z79.82 Long term (current) use of aspirin; Z79.01 Long term (current) use of anticoagulants; Z79.51 Long term (current) use of inhaled steroids; Z79.52 Long term (current) use of systemic steroids; Z79.899 Other long term (current) drug therapy; Z88.0 Allergy status to penicillin; Z88.1 Allergy status to other antibiotic agents; Z88.8 Allergy status to other drugs, medicaments and biological substances; Z91.041 Radiographic dye allergy status; Z80.3 Family history of malignant neoplasm of breast; Z83.2 Family history of diseases of the blood and blood-forming organs and certain disorders involving the immune mechanism; W19.XXXA Unspecified fall, initial encounter; Y92.009 Unspecified place in unspecified non-institutional (private) residence as the place of occurrence of the external cause
CPT/HCPCS: 96361 ×4; 96376; 96375 ×2; 93005 ×2; 96365; 96366; 99285; 36415; 94640 ×6; 36600; 97166; 85379; 80061; 80053; 82140; 80162; 82805; 82803; 83605; 84484; 85025; 85610; 85730; 81003; 87324; 93880; 72131; 70450; 71275; G0378 ×4; J1200; J2930; J2405; J7512 ×3; Q9967